=== PATIENT | female | born 1945 | race Caucasian/White ===

== ENCOUNTER 2019-02-09 20:49 | Observation (INO) | payer MEDICARE, OTHER, SELFPAY ==
[2019-02-09 20:50] VITALS: BP 203/89; PULSE 99; RESP 20; TEMP 36.7; O2SAT 95; BMI 32.1
--- NOTE | 2019-02-09 22:41 | EKG12_ITS ---
Test Reason : DIZZINESS Blood Pressure : / mmHG Vent. Rate : 068 BPM Atrial Rate : 068 BPM P-R Int : 186 ms QRS Dur : 086 ms QT Int : 416 ms P-R-T Axes : 088 -31 054 degrees QTc Int : 442 ms Normal sinus rhythm Left axis deviation Abnormal ECG Confirmed by HUNG MEYERS, GILA ([id number]), editor book EVAN PRETTY ([id number]) on 02/13/2019 2:20:53 PM Referred By: ANDREW Confirmed By:GILA PERSAUD MD
--- NOTE | 2019-02-09 22:42 | ED.VISSUMM ---
- ER Visit Summary Date of Service: 02/09/19 Chief Complaint: Lightheadedness History of Present Illness: The patient is a 73 F who presents with lightheadedness. This is been going on for about 5 days. She did fall on February 01 down steps and hit her head. She denies any loss of consciousness or headache. She initially felt fine. However 5 days ago she began to feel lightheaded. This is intermittent. She describes it as feeling drunk or off-balance. She almost fell today. She did see the nurse practitioner at her primary care physician's office and had an outpatient CT of the head at [facility] but does not yet know the results. She denies any recent illness otherwise such as fevers chest pain shortness of breath nausea vomiting headache. She denies any weakness or paresthesias. Physical Examination: Blood pressure 203/89 vitals otherwise unremarkable No distress Moist mucous membranes Heart regular rate and rhythm Lungs are clear Abdomen soft Alert and oriented with no focal or lateralizing neurological deficits no ataxia Test Results: EKG shows sinus rhythm at a rate of 68. CBC BMP troponin normal. Coagulation studies normal. CT the head shows no intracranial hemorrhage. CTAs of the head and neck showed no stenosis, no dissection. Emergency Department Course and Treatment: Patient went underwent the above work-up. Initially we attempted to obtain CT records from [facility]. However after couple of calls and left voicemails we had not heard back or received records. Therefore I did obtain a new CT the head to rule out intracranial hemorrhage. This returned unremarkable. Given patient's description of symptoms I was also concerned about potential dissection due to trauma. CTAs were obtained. These were also unremarkable. While the patient's symptoms could be related to a post concussion syndrome the onset of her symptoms was not for several days after the head injury. Therefore I do feel posterior circulation ischemia or stroke still needs ruled out. I do feel she needs hospital observation for MRI. Patient will be discussed with the hospitalist and admitted. Treatment Plan: [] Disposition: Admit Impression: Disequilibrium This note was generated with [facility] dictation software. It may contain incorrect words, spelling, and punctuation that were not noted in review of the chart prior to signing ED Disposition - Plan for ED Patient: Referrals: Pauline Alcaraz MD [Primary Care Provider] -
[2019-02-09 23:20] LABS: Absolute Lymphocyte Count 1.81 X10^3/ul (0.83-4.51); Absolute Neutrophil Count 5.2 X10^3/uL (2.0-7.7); Basophil# 0.02 X10^3/uL; Basophil% 0.3 % (0-1); Eosinophil# 0.31 X10^3/uL; Eosinophils% 3.9 % (0-5); Hematocrit 39.1 % (37-47); Hemoglobin 12.5 g/dl (12.0-15.0); Lymphocyte # 1.81 X10^3/ul (4.0); Lymphocyte % 22.7 % (19-41); Mean Corpuscular Hgb 26.7 pg (27.0-32.0); Mean Corpuscular Volume 83.5 fL (81-99); Mean Platelet Vol. 10.6 fl (6.2-12.0); Monocyte# 0.63 X10^3/uL; Monocyte% 7.9 % (0-10); Neutrophil # 5.19 X10^3/uL (2.7-7.7); Neutrophil % 65.1 % (47-70); POSITIVE COUNT NO; POSITIVE DIFFERENTIAL NO; POSITIVE MORPHOLOGY NO; Platelet Count 315 K/mm3 (150-450); RBC Distribution Width CV 14.9 % (11.6-14.6); RBC Distribution Width SD 45.2 fl (35.1-43.9); Red Blood Count 4.68 M/mm3 (4.2-5.4)
[2019-02-09 23:27] LABS: Prothrombin Time (Protime)PT. 12.6 SECONDS (11.7-14.9)
[2019-02-09 23:28] VITALS: BP 174/94; PULSE 76; RESP 12; O2SAT 97
[2019-02-09 23:28] LABS: Partial Thromboplast Time 32.1 Seconds (24.1-36.2)
[2019-02-09 23:36] LABS: Anion Gap 4 (5-15); BUN 16 mg/dL (7-18); BUN/Creat Ratio 23.5 RATIO (10-20); Calcium,Total 8.6 mg/dL (8.5-10.1); Chloride 105 mmol/L (98-107); Creatinine, Serum 0.68 mg/dL (0.55-1.02); EST Glomerular Filtration Rate 89 mL/min (>60); Est Glom Filt Rate - Afr Amer 108 mL/min (>60); Estimated Creatinine Clearance 42.62 ml/min; Glucose 96 mg/dL (74-106); Potassium 3.7 mmol/L (3.5-5.1); Sodium Level 140 mmol/L (136-145)
--- NOTE | 2019-02-09 23:45 | CT_ITS ---
STUDY: CT BRAIN WITHOUT CONTRAST REASON FOR EXAM: Female, 73 years old. Dizziness since Tuesday. Patient fell on February 01, 2019 and hit right side of the head on porch railing. RADIATION DOSAGE (If Supplied By Facility): CTDIvol = ( 44.99 ) mGy, DLP = ( 779.24 ) mGycm TECHNIQUE: Transaxial CT imaging of the brain was performed without administration of intravenous contrast material. Individualized dose optimization techniques were used for this CT. COMPARISON: CT of the head dated October 09, 2013. FINDINGS: Normal soft tissue structures. Normal calvarium. There is a small partially calcified meningioma within the left paramedian posterior parietal region measuring approximately Normal size ventricles and extra-axial spaces for the patient's age. Normal white matter tracts of the cerebral hemispheres. Normal basal ganglia and thalami. Normal brainstem. Normal cerebellum. There is no intracranial hemorrhage. There is moderate atherosclerotic calcification of the intracranial arteries. There is mucoperiosteal inflammatory disease of the paranasal sinuses consistent with mild chronic sinusitis. CT/Brain/Head without Contrast IMPRESSION: 1. No CT evidence of acute intracranial hemorrhage. 2. A small left parietal meningioma. Electronically Signed: Madison Haile MD at 0:48 EDT , Service support ,
[2019-02-10] VITALS (9 sets, daily range): BP systolic 151–190; BP diastolic 80–103; PULSE 67–91; RESP 16–19; TEMP 36.5–37; O2SAT 96–98; BMI 31.5
--- NOTE | 2019-02-10 01:02 | CT_ITS ---
STUDY: CTA HEAD AND NECK WITH CONTRAST REASON FOR EXAM: Female, 73 years old. Dizziness since Tuesday. RADIATION DOSAGE (If Supplied By Facility): CTDIvol = ( 15.19 ) mGy, DLP = ( 599.67 ) mGycm TECHNIQUE: CT angiography was performed with a multi-detector CT scanner. Data acquisition was obtained from the skull base through the vertex following intravenous administration of 100 ml of Isovue 370. MIP images were reconstructed from the axial data set. Post-processing of the angiographic images was performed, with multiplanar reformation and 3D reconstruction. Individualized dose optimization techniques were used for this CT. COMPARISON: CT of the brain dated February 09, 2019. FINDINGS: Normal bilateral petrous carotid arteries. There is calcified plaque formation of the right cavernous carotid artery, without a cross-sectional luminal stenosis. There is calcified plaque formation of the left cavernous carotid artery, without a cross-sectional luminal stenosis. Normal right A1 segments of the anterior cerebral artery. Normal left A1 segments of the anterior cerebral artery. Normal intact anterior communicating artery (ACOM). Normal bilateral A2 segments of the anterior cerebral arteries. There is irregularity of the right M1 and M2 branches with minimal luminal narrowing, suggesting atherosclerotic plaque formation, without an occlusion. There is irregularity of the left M1 and M2 branches with minimal luminal narrowing, suggesting atherosclerotic plaque formation, without an occlusion. There is a persistent origin of the right posterior cerebral artery with absence of the posterior communicating artery (PCOM). There is a persistent origin of the left posterior cerebral artery with absence of the posterior communicating artery (PCOM). Both vertebral arteries are small in size. The right vertebral artery may end in PICA. There is a small atretic basilar artery, suggesting a basilar insufficiency. The visualized bilateral superior cerebellar (SCA) arteries are normal. There is absence of bilateral P1 segments of the posterior cerebral arteries. Normal visualized bilateral P2 and P3 segments of the posterior cerebral arteries. There is no demonstrated aneurysm of the [place]. There is no demonstrated abnormality of the visualized brain. AORTIC ARCH: There is a bovine origin of the great vessels arising from the aortic arch with a common origin of the brachiocephalic and left common carotid artery. Normal origin of the left subclavian artery. RIGHT CAROTID ARTERIES: There is atherosclerotic tortuous elongation of the right common carotid artery. Normal right common carotid bulb. Normal origin of the right internal carotid (ICA) artery without a hemodynamically significant stenosis. There is atherosclerotic tortuous elongation of the cervical portion of the right internal carotid artery. Normal origin of the right external carotid artery (ECA). LEFT CAROTID ARTERIES: Normal left common carotid artery (CCA). There is mild atherosclerotic plaque formation with minimal narrowing of the left carotid bulb. Normal origin of the left internal carotid (ICA) artery without a hemodynamically significant stenosis. There is atherosclerotic tortuous elongation of the cervical portion of the left internal carotid artery. Normal origin of the left external carotid artery (ECA). VERTEBRAL ARTERIES: Normal bilateral vertebral arteries. NECK ANATOMY: There is a left-sided parotid nodule measuring 1.5 cm in greatest dimension. This was present on the previous MRI and appears unchanged. The right parotid gland has a normal appearance. Normal bilateral museum tour guide spaces. Normal bilateral parapharyngeal spaces. Normal bilateral carotid spaces. Normal bilateral sublingual and submandibular glands and spaces. Normal visualized nasopharynx. Normal retropharyngeal space. Normal perivertebral space. Normal visualized bilateral faucial tonsils. The visualized tongue, tongue base and oropharynx are normal. The visualized cervical lymph nodes (levels I-) are within normal size limits, and maintain normal morphology. There is no demonstrated solid or cystic mass lesion. There is no abnormal contrast enhancement. Normal epiglottis, bilateral vallecula and hypopharynx. The pre-epiglottic and paraglottic adipose spaces are normal. Normal visualized bilateral piriform sinuses, aryepiglottic folds, vocal cords, and arytenoid-cricoid articulations. Normal subglottic trachea. The thyroid is not visualized. Normal visualized pulmonary apices. There is a mucoperiosteal thickening in the right maxillary sinus in addition a mucous retention cyst. There is patchy mucoperiosteal thickening within the ethmoid sinuses. There is multilevel degenerative changes of the cervical spine. Patient is edentulous. CT/CTA Head AND Neck W/ Contrast IMPRESSION: 1. No CT evidence for hemodynamically significant stenosis, acute thrombosis, dissection or aneurysm. 2. Technically limited study due to patient motion. 3. Unchanged appearance of left parotid nodule. Electronically Signed: Madison Haile MD at 3:15 EDT , Service support ,
--- NOTE | 2019-02-10 04:30 | PCM.HP.STD ---
Problem List (1) Ataxia Status: Acute (2) Hypertension Status: Chronic Qualifiers: Hypertension type: essential hypertension Qualified Code(s): I10 - Essential (primary) hypertension (3) Hypothyroidism Status: Acute Qualifiers: Hypothyroidism type: unspecified Qualified Code(s): E03.9 - Hypothyroidism, unspecified History of Present Illness Date of Admission: 02/10/19 Chief Complaint: Dysequilibrium - 5 days The patient is a 73 year old F with past medical history of hypertension, hypothyroidism who fell down on 01 February. She was coming down a staircase and had a few steps to get to the landing when she missed her step and fell down and hit her head against the railing. She did not lose consciousness. Shee denied feeling unwell prior to the fall or dizziness or palpitations. She was with her family at a boat house. It was unwitnessed. She managed to get up and climbed up stairs back to the family. The family helped her put ice to the head. She felt well and went ahead with 01 February festivities. A couple of days later she started to feel lightheaded and off-balance. This was intermittent. She went to see her nurse practitioner at the primary care doctor's office and had an outpatient CT scan of the head done in [place]. Results of this CT is unknown. She went out this evening with friends and started feeling very dizzy. She almost fell. This persisted and she decided to come to the emergency department. In the emergency department, her temperature was 98.1F, heart rate of 99, blood pressure 203/89, respiratory rate was 20, SPO2 is 95% on room air. Admitting CBC D was unremarkable. BMP was also unremarkable. Troponins were negative. EKG shows normal sinus rhythm, no acute ST-T changes. Past Medical History Past Medical History (Chronic Problems): Chronic Problems Hypertension (Chronic) Allergies codeine Adverse Reaction (Verified 02/09/19 20:50) Nausea Home Medications: Ambulatory Orders Medication Instructions Recorded Ergocalciferol (Vitamin D2) 2,000 unit PO DAILY 10/09/13 [Vitamin D2] Estrogens, Conjugated [Premarin] 1 dose VAGINAL DAILY 10/09/13 Levothyroxine Sodium [Levoxyl] 137 mcg PO QHS 10/09/13 [place]-3 Fatty Acids [Fish Oil] 400 mg PO DAILY 10/09/13 Triamterene/Hydrochlorothiazid 1 each PO DAILY 10/09/13 [Triamterene-Hctz 50-25 mg Cap] Ubidecarenone [Coq10] 50 mg PO DAILY 03/23/17 Surgical History: cholecystectomy, hysterectomy, total knee arthroplasty - Left, - - Status post tubal ligation, thyroidectomy, excision biopsy for vulvar CA Psychiatric History: No pertinent psych hx ON 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 SERVICES SPECIALIST History: No pertinent ON SITE SERVICES SPECIALIST history Lives: Spouse/ Significant Other Smoking Status: Never smoker Tobacco Use: Non-smoker Alcohol: Occasional Drugs: None - *Family History Maternal History Items: Diabetes, Heart Disease - MRI Paternal History Items: COPD Review of Systems Constitutional: Denies: Anorexia, Chills, Fever, Malaise, Weakness, Weight Change Eyes: Denies: Blurred vision, Cataracts, Conjunctivae Inflammation HEENT: Denies: Head Aches, Hearing Changes, Sinus Congestion, Sinus Drainage Cardiovascular: Denies: Chest Pain, Orthopnea, Palpitations Respiratory: Denies: Cough, Hemoptysis, Shortness of breath at rest, Shortness of breath upon exertion, Sputum production Gastrointestinal: Denies: Abdominal Pain, Hematemesis, Hematochezia, Nausea, Vomiting Genitourinary: Denies: Dysuria, Frequency, Hesitancy, Incontinence Musculoskeletal: Denies: Joint Pain, Joint stiffness, Joint swelling, Joint Tenderness Skin: Denies: Rash, Wounds Neurological: Denies: Difficulty swallowing, Focal weakness, Numbness, Tingling Psychiatric: Denies: Anxiety, Depression, Homicidal Ideations, Suicidal Ideations Endocrine: Denies: Polyuria Hematologic/ Lymphatic: Denies: Easy Bruising, Easy Bleeding VTE Information - Inpt Only VTE Present on Admission: No VTE Pharm Prophylaxis ordered?: Yes Patient Problems: Active and Suspected Problems Ataxia (Acute) Hypothyroidism (Acute) - Physical Exam General: Alert, Oriented x3, Cooperative, No apparent distress HEENT: Atraumatic, PERRLA, EOMI, Normocephalic, - - Tenderness over the right parietal region with soft tissue bump from fall Oral: Moist Mucosa Neck: Supple, No JVD, Negative Carotid Bruits Lungs: Clear to auscultation, Normal air movement Cardiovascular: Regular rate, Regular Rhythm, Normal S1, Normal S2, No murmurs Abdomen: Bowel Sounds Present, Soft, Non Tender, Non-Distended, No Hepato-splenomegaly Extremities: No edema Skin: No rashes Musculoskeletal: No Tenderness to Palpation of Joints or Extremities Lymphatic: No Cervical, Supraclavicular, or Inguinal Adenopathy Neurological: Cranial nerves II-XII grossly intact, Neuro grossly intact, Coordination normal Psych/Mental Status: Normal Affect, Appropriate Vital Signs Temp Pulse Resp BP Pulse Ox 98.1 F 85 17 188/87 H 97 02/09/19 20:50 02/10/19 03:00 02/10/19 03:00 02/10/19 03:00 02/10/19 03:00 Oxygen Delivery Method Room Air Weight: 84.9 kg Body Mass Index (BMI) 32.1 Laboratory Tests Past 24 Hrs 02/09/19 02/09/19 02/09/19 23:00 23:00 23:00 WBC 8.0 RBC 4.68 Hgb 12.5 Hct 39.1 MCV 83.5 MCH 26.7 L MCHC 32.0 RDW 14.9 H RDW Differential 45.2 H Plt Count 315 MPV 10.6 Immature Gran % (Auto) 0.100 Neut % (Auto) 65.1 Lymph % (Auto) 22.7 [place] % (Auto) 7.9 Eos % (Auto) 3.9 Baso % (Auto) 0.3 Absolute Neuts (auto) 5.2 Absolute Lymphs (auto) 1.81 Total Counted Not Reportable PT 12.6 INR 1.0 APTT 32.1 Sodium 140 Potassium 3.7 Chloride 105 Carbon Dioxide 31.0 Anion Gap 4 L BUN 16 Creatinine 0.68 Estim Creat Clear Calc 42.62 Est GFR (MDRD) Af Amer 108 Est GFR (MDRD) Non-Af 89 BUN/Creatinine Ratio 23.5 H Glucose 96 Calcium 8.6 Troponin I < 0.015 Assessment/Plan All Active Problems Ataxia (Acute) Hypothyroidism (Acute) a 73 year old F with past medical history of hypertension, hypothyroidism who fell down the staircase on 01 of February and comes in with intermittent feeling of off-balance. 1. Ataxia, unclear etiology, history of a fall, CT of the head shows no acute intracranial hemorrhage, CTA of the head and neck is negative Plan: Admit to PCU, monitor on telemetry, MRI of the brain to look at the posterior circulation, PT/OT to evaluate and treat 2. Accelerated hypertension, known history of hypertension, continue home triamterene/hydrochlorothiazide, hydralazine as needed 3. Hypothyroidism, continue on levothyroxine 4. DVT PPx- Heparin SC Code Visit Inpatient E&M: 43038 Init Hosp L3
--- NOTE | 2019-02-10 05:45 | MRI_ITS ---
STUDY: MRI BRAIN WITHOUT CONTRAST REASON FOR EXAM: Female, 73 years old. Pt fell 02/01/19 and hit RIGHT parietal/frontal area. Dizziness began 02/05/19 and has continued. TECHNIQUE: Standardized multiplanar fat and water weighted pulse sequences were obtained. COMPARISON: January 12, 2016 FINDINGS: Normal size of the ventricles and extra-axial spaces for the patient's age. There are multiple white matter hyperintensities, distributed throughout the deep white matter tracts of the cerebral hemispheres, consistent with moderate chronic white matter ischemic changes. There is approximately 1.2 cm extra-axial lesion along the left parietal convexity with dural tail (sagittal image #8 series 3). This measured approximately 6 mm previously in 2016. Normal bilateral basal ganglia. Normal thalami. There is no extra-axial fluid accumulation. Normal flow voids within the major intracranial circulation suggesting patency by spin echo criteria. Normal sella turcica, pituitary gland, infundibular stalk, optic chiasm and hypothalamus. Normal tectal plate and pineal gland. Normal midbrain, iona and medulla. Normal cerebellum. Normal basal cisterns. Again noted is a stable 1.5 cm left parotid lesion. MRI/Brain without Contrast IMPRESSION: No acute intracranial abnormality. Increased 1.2 cm left parietal likely meningioma. Follow-up in 12 months is recommended. Electronically Signed: Luz Stovall MD at 10:47 EDT Tel , Service support ,
[2019-02-10] MEDS: 0.9% Normal Saline 1,000 ML 75 ML IV (06:19)
[2019-02-10] MEDS: Heparin Injection (Vial) 5,000 UNIT/ML VIAL 5000 UNIT SC (06:25)
[2019-02-10 08:03] LABS: Absolute Lymphocyte Count 1.55 X10^3/ul (0.83-4.51); Absolute Neutrophil Count 4.2 X10^3/uL (2.0-7.7); Basophil# 0.01 X10^3/uL; Basophil% 0.2 % (0-1); Eosinophil# 0.27 X10^3/uL; Eosinophils% 4.1 % (0-5); Hemoglobin 12.7 g/dl (12.0-15.0); Lymphocyte # 1.55 X10^3/ul (4.0); Lymphocyte % 23.4 % (19-41); Mean Corp Hgb Conc 31.8 g/gl (32-36); Mean Corpuscular Hgb 26.3 pg (27.0-32.0); Mean Corpuscular Volume 82.8 fL (81-99); Mean Platelet Vol. 10.7 fl (6.2-12.0); Monocyte# 0.62 X10^3/uL; Monocyte% 9.4 % (0-10); Neutrophil # 4.15 X10^3/uL (2.7-7.7); Neutrophil % 62.7 % (47-70); Platelet Count 307 K/mm3 (150-450); RBC Distribution Width CV 15.1 % (11.6-14.6); Red Blood Count 4.83 M/mm3 (4.2-5.4); White Blood Count 6.6 K/mm3 (4.4-11.0)
[2019-02-10 08:04] LABS: POSITIVE COUNT NO; POSITIVE DIFFERENTIAL NO; POSITIVE MORPHOLOGY NO
[2019-02-10 08:23] LABS: ALB/GLOB Ratio 0.9 RATIO (0.9-2.4); AST(SGOT) 17 U/L (15-37); Alanine Aminotransfer ALT/SGPT 29 U/L (13-56); Albumin, Serum 3.3 g/dL (3.2-5.0); Alkaline Phosphatase 96 U/L (45-117); Anion Gap 5 (5-15); BUN 13 mg/dL (7-18); BUN/Creat Ratio 20.7 RATIO (10-20); Calcium,Total 8.9 mg/dL (8.5-10.1); Chloride 106 mmol/L (98-107); Creatinine, Serum 0.63 mg/dL (0.55-1.02); EST Glomerular Filtration Rate 98 mL/min (>60); Est Glom Filt Rate - Afr Amer 119 mL/min (>60); Estimated Creatinine Clearance 42.62 ml/min; Globulin 3.6 g/dL (2.2-4.2); Glucose 94 mg/dL (74-106); Potassium 3.5 mmol/L (3.5-5.1); Protein, Total 6.9 g/dL (6.4-8.2); Sodium Level 143 mmol/L (136-145)
[2019-02-10] MEDS: Omega-3 Acid Ethyl Esters 1 GM Capsule PO (09:06)
[2019-02-10] MEDS: Triamterene 37.5MG/Hctz 25MG Capsule 1 CAP PO (09:06)
--- NOTE | 2019-02-10 11:38 | DCINST_ITS ---
- Discharge Diagnoses Current Active Problems: Current Active and Chronic Problems Ataxia (Acute) Hypertension (Chronic) Hypothyroidism (Acute) You will use the following diet at home:: Cardiac - 2500 mg sodium daily Your food should be the consistency of: Regular Your liquids should be the consistency of: Regular/Thin Discharge Activity: Return to Normal Activity Allergies/Adverse Reactions: Allergies codeine Adverse Reaction (Verified 02/09/19 20:50) Nausea Medications to take at Discharge Ergocalciferol (Vitamin D2) [Vitamin D2] 2,000 unit PO DAILY 10/09/13 Estrogens, Conjugated [Premarin] 1 dose VAGINAL DAILY 10/09/13 Levothyroxine Sodium [Levoxyl] 137 mcg PO QHS 10/09/13 [place]-3 Fatty Acids [Fish Oil] 400 mg PO DAILY 10/09/13 Triamterene/Hydrochlorothiazid [Triamterene-Hctz 50-25 mg Cap] 1 each PO DAILY 10/09/13 Ubidecarenone [Coq10] 50 mg PO DAILY 03/23/17 Meclizine HCl [Antivert] 12.5 mg PO TID PRN PRN #21 tab 02/10/19 The following prescriptions were given: Meclizine HCl [Antivert] 12.5 mg PO TID PRN PRN #21 tab PRN Reason: Vertigo Prescription Printed Primary Care Physician: Pauline Alcaraz MD [Primary Care Provider] - Please follow up with your Primary Care Physician in: 1-2 weeks Test Results: Test results from this visit will be discussed in further detail at your follow- up appointment, if applicable. Please Follow Up With: Lillian Fernandez MD When: 3-4 weeks Proposed Discharge Date: 02/10/19
--- NOTE | 2019-02-10 13:00 | PCM.DC.SUM ---
<Ramiro Castellano - Last Filed: 02/10/19 13:00> Discharge Date and Diagnosis Date of Admission: 02/10/19 Date of Discharge: 02/10/19 - Primary Discharge Diagnosis Active and Suspected Problems Dizzines 2/2 BPPV HTN urgency Hypothyroidism - Secondary Discharge Diagnosis Chronic Problems Hypertension (Chronic) Hospital Course and Treatment Imaging Results: CT/Brain/Head without Contrast IMPRESSION: 1. No CT evidence of acute intracranial hemorrhage. 2. A small left parietal meningioma. CT/CTA Head AND Neck W/ Contrast IMPRESSION: 1. No CT evidence for hemodynamically significant stenosis, acute thrombosis, dissection or aneurysm. 2. Technically limited study due to patient motion. 3. Unchanged appearance of left parotid nodule. MRI/Brain without Contrast IMPRESSION: No acute intracranial abnormality. Increased 1.2 cm left parietal likely meningioma. Follow-up in 12 months is recommended. Operations: None Procedures: None Summary of Care Provided: Hospital course: The patient is a 73 year old F with past medical history of BPPV, hypertension, hypothyroidism, who presented to the emergency room with complaints of dizziness. The patient notably had a fall on February 01. She was walking down a flight of stairs and missed the last step falling to the ground and hitting her head. At that time she did not have dizziness or lightheadedness. 2 days later she started feeling lightheaded and dizzy, off balance while walking. CT brain was done by PCP which was negative. The patient noted that the first 6 time she experienced this it was when she sat up and got out of bed first thing in the morning, and felt it occur with position changes. She had worsening of her dizziness and came to the emergency room. Her blood pressure was elevated at 203/89, CT of the brain was negative. She was admitted for stroke work-up. A CTA of the head and neck was unremarkable. An MRI of the brain was obtained which was negative for stroke. There was an incidental meningioma noted that will need follow-up imaging in 12 months. The patient had no further symptoms the rest of the day while here. She had a history of BPPV for which she was treated with Parth maneuvers in the past. Her orthostatic vitals were negative. As her symptoms were positional this felt that she likely had BPPV, possibly triggered by the initial fall, meclizine was prescribed as needed, and I advised her to continue Parth maneuvers as needed at home. As for her blood pressure, administration of her normal home medication improved her blood pressure significantly. It does remain elevated, I have advised her to check her blood pressures every day, record them, and present the findings to her PCP at which point adjustments to her home medication regimen can be made. She was discharged home in stable condition. She will need to follow-up with her PCP in 1 to 2 weeks. She may also follow-up with neurology in 3 to 4 weeks. This patient was seen by Ramiro Castellano PA-C under the supervision of Doctor Ann Marie. [] - Physical Exam General: Alert, Oriented x3, Cooperative HEENT: Atraumatic, PERRLA, EOMI, Normocephalic Neck: Supple, No JVD, Negative Carotid Bruits Lungs: Clear to auscultation, Normal air movement Cardiovascular: Regular rate, No murmurs Abdomen: Bowel Sounds Present, Soft, Non Tender Extremities: No edema, Capillary Refill Less than 3 Seconds Skin: No rashes, No breakdown Musculoskeletal: No Tenderness to Palpation of Joints or Extremities Neurological: Cranial nerves II-XII grossly intact Psych/Mental Status: Normal Affect, Appropriate, Alert and oriented to time, place, person, mood and affect Vital Signs Temp Pulse Resp BP Pulse Ox 98.1 F 72 16 151/85 H 97 02/10/19 11:15 02/10/19 12:01 02/10/19 11:15 02/10/19 12:01 02/10/19 11:15 Oxygen Delivery Method Room Air Weight: 184 lb 8.43 oz Body Mass Index (BMI) 31.5 Orthostatic Vital Signs Start: 02/10/19 12:01 Freq: q24h Status: Active Protocol: Activity Type Activity Date Activity User E-Sign Co-Sign Detail Recorded Client Recorded Date Recorded By Document 02/10/19 12:01 HALEIGH [id number] 02/10/19 12:06 HALEIGH 02/10/19 12:01 Orthostatic Vitals Standing -Blood Pressure (90/60-120/80 mm Hg) 165/85 H -Extremity Use Right Arm -Pulse Rate (60-100 beats/min) 77 Sitting -Blood Pressure (90/60-120/80 mm Hg) 162/91 H -Extremity Use Right Arm -Pulse Rate (60-100 beats/min) 91 Lying -Blood Pressure (90/60-120/80 mm Hg) 151/85 H -Extremity Use Right Arm -Pulse Rate (60-100 beats/min) 72 Intake and Output for Last 24 Hours 02/08/19 02/09/19 02/10/19 23:59 23:59 23:59 Intake Total 400 / 400 Balance 400 / 400 Laboratory Tests Past 24 Hrs 02/09/19 02/09/19 02/09/19 23:00 23:00 23:00 WBC 8.0 RBC 4.68 Hgb 12.5 Hct 39.1 MCV 83.5 MCH 26.7 L MCHC 32.0 RDW 14.9 H RDW Differential 45.2 H Plt Count 315 MPV 10.6 Immature Gran % (Auto) 0.100 Neut % (Auto) 65.1 Lymph % (Auto) 22.7 Armstrong % (Auto) 7.9 Eos % (Auto) 3.9 Baso % (Auto) 0.3 Absolute Neuts (auto) 5.2 Absolute Lymphs (auto) 1.81 Total Counted Not Reportable PT 12.6 INR 1.0 APTT 32.1 Sodium 140 Potassium 3.7 Chloride 105 Carbon Dioxide 31.0 Anion Gap 4 L BUN 16 Creatinine 0.68 Estim Creat Clear Calc 42.62 Est GFR (MDRD) Af Amer 108 Est GFR (MDRD) Non-Af 89 BUN/Creatinine Ratio 23.5 H Glucose 96 Calcium 8.6 Total Bilirubin AST ALT Alkaline Phosphatase Troponin I < 0.015 Total Protein Albumin Globulin Albumin/Globulin Ratio 02/10/19 02/10/19 07:18 07:18 WBC 6.6 RBC 4.83 Hgb 12.7 Hct 40.0 MCV 82.8 MCH 26.3 L MCHC 31.8 L RDW 15.1 H RDW Differential 45.0 H Plt Count 307 MPV 10.7 Immature Gran % (Auto) 0.200 Neut % (Auto) 62.7 Lymph % (Auto) 23.4 Armstrong % (Auto) 9.4 Eos % (Auto) 4.1 Baso % (Auto) 0.2 Absolute Neuts (auto) 4.2 Absolute Lymphs (auto) 1.55 Total Counted Not Reportable PT INR APTT Sodium 143 Potassium 3.5 Chloride 106 Carbon Dioxide 32.0 Anion Gap 5 BUN 13 Creatinine 0.63 Estim Creat Clear Calc 42.62 Est GFR (MDRD) Af Amer 119 Est GFR (MDRD) Non-Af 98 BUN/Creatinine Ratio 20.7 H Glucose 94 Calcium 8.9 Total Bilirubin 0.40 AST 17 ALT 29 Alkaline Phosphatase 96 Troponin I Total Protein 6.9 Albumin 3.3 Globulin 3.6 Albumin/Globulin Ratio 0.9 Discharge Diet: Low fat/ Low Cholesterol, 2000 mg Sodium Diet Discharge Activity: Return to Normal Activity Home Medications: Medications to take at Discharge Ergocalciferol (Vitamin D2) [Vitamin D2] 2,000 unit PO DAILY 10/09/13 Estrogens, Conjugated [Premarin] 1 dose VAGINAL DAILY 10/09/13 Levothyroxine Sodium [Levoxyl] 137 mcg PO QHS 10/09/13 [place]-3 Fatty Acids [Fish Oil] 400 mg PO DAILY 10/09/13 Triamterene/Hydrochlorothiazid [Triamterene-Hctz 50-25 mg Cap] 1 each PO DAILY 10/09/13 Ubidecarenone [Coq10] 50 mg PO DAILY 03/23/17 Meclizine HCl [Antivert] 12.5 mg PO TID PRN PRN #21 tab 02/10/19 Following Prescrptions Were Given to Patient: Meclizine HCl [Antivert] 12.5 mg PO TID PRN PRN #21 tab PRN Reason: Vertigo Prescription Printed Primary Care Physician: Pauline Alcaraz MD [Primary Care Provider] - Please follow up with your Primary Care Physician in: 1-2 weeks Please Follow Up With: Lillian Fernandez MD When: 3-4 weeks Disposition: Home Minutes spent on discharge:: 35 Patient Condition:: Stable Medical Necessity - Tobacco Use Smoking Status: Former smoker Tobacco Use: Non-smoker Meaningful Use Info Meaningful Use Diagnoses (Choose all that apply): None applicable <Misty Jesus - Last Filed: 02/10/19 14:42> Discharge Date and Diagnosis - Secondary Discharge Diagnosis Chronic Problems Hypertension (Chronic) Hospital Course and Treatment Imaging Results: 02/10/19 05:45 MRI Brain [Brain without Contrast] [MRI] Routine Summary of Care Provided: Patient seen by Ramiro Castellano PA-C under my supervision The patient is a 73 year old F with a past medical history as above. She was admitted with complaint of dizziness. Patient states she was out with friends started feeling lightheaded and dizzy. Patient also had a fall on January/was working on a flight of stairs and missed the last step and hit her head. CT done on outpatient basis was negative. Dizziness recurred again so she came back to the ED. Blood pressure was elevated in the ED at [address] of the brain was negative. She stated that the dizziness was worse with positional changes. CT of the head and neck was unremarkable and an MRI done was negative for stroke but showed an incidental meningioma which had increased from 6 mm in 2016 to 1.2 cm in 2019. She remained stable and was discharged home on 02/10/2019. She has follow-up with her primary care doctor within 1 week. She is also to follow-up with neurology for closer monitoring of meningioma. Patient seen and examined prior to discharge patient felt well and had no complaints. Review of systems otherwise negative. Labs and vitals reviewed. Home Medication reviewed and reconciled. o/e: Vital Signs Height 5 ft 4.17 in Weight: 184 lb 8.43 oz Weight in Pounds 184.5 lbs Pulse Ox 96 Temperature 98.6 F Pulse Rate [Standing] 77 Pulse Rate [Sitting] 91 Pulse Rate [Lying] 72 Pulse Rate 75 Respiratory Rate 16 Blood Pressure [Standing] 165/85 Blood Pressure [Sitting] 162/91 Blood Pressure [Lying] 151/85 Blood Pressure [BP] 190/103 Blood Pressure 151/84 Blood Pressure Position [BP] Semi-Fowlers Blood Pressure Position Sitting [] General: Alert, Oriented x3, Cooperative, No apparent distress HEENT: Atraumatic, PERRLA, EOMI, Normocephalic Oral: Moist Mucosa Neck: Supple, No JVD, Negative Carotid Bruits Lungs: Clear to auscultation, Normal air movement Cardiovascular: Regular rate, Regular Rhythm, Normal S1, Normal S2, No murmurs Abdomen: Bowel Sounds Present, Soft, Non Tender, Non-Distended, No Hepato-splenomegaly Extremities: No edema Skin: No rashes Musculoskeletal: No Tenderness to Palpation of Joints or Extremities Lymphatic: No Cervical, Supraclavicular, or Inguinal Adenopathy Neurological: Cranial nerves II-XII grossly intact, Neuro grossly intact, Coordination normal Psych/Mental Status: Normal Affect, Appropriate Plan as above. I have reviewed Ramiro Castellano PA-C's note and endorse it. - Physical Exam Vital Signs Temp Pulse Resp BP Pulse Ox 98.6 F 75 16 151/84 H 96 02/10/19 14:00 02/10/19 14:00 02/10/19 14:00 02/10/19 14:00 02/10/19 14:00 Oxygen Delivery Method Room Air Weight: 184 lb 8.43 oz Body Mass Index (BMI) 31.5 Intake and Output for Last 24 Hours 02/08/19 02/09/19 02/10/19 23:59 23:59 23:59 Intake Total 400 / 400 Balance 400 / 400 Laboratory Tests Past 24 Hrs 02/09/19 02/09/19 02/09/19 23:00 23:00 23:00 WBC 8.0 RBC 4.68 Hgb 12.5 Hct 39.1 MCV 83.5 MCH 26.7 L MCHC 32.0 RDW 14.9 H RDW Differential 45.2 H Plt Count 315 MPV 10.6 Immature Gran % (Auto) 0.100 Neut % (Auto) 65.1 Lymph % (Auto) 22.7 Armstrong % (Auto) 7.9 Eos % (Auto) 3.9 Baso % (Auto) 0.3 Absolute Neuts (auto) 5.2 Absolute Lymphs (auto) 1.81 Total Counted Not Reportable PT 12.6 INR 1.0 APTT 32.1 Sodium 140 Potassium 3.7 Chloride 105 Carbon Dioxide 31.0 Anion Gap 4 L BUN 16 Creatinine 0.68 Estim Creat Clear Calc 42.62 Est GFR (MDRD) Af Amer 108 Est GFR (MDRD) Non-Af 89 BUN/Creatinine Ratio 23.5 H Glucose 96 Calcium 8.6 Total Bilirubin AST ALT Alkaline Phosphatase Troponin I < 0.015 Total Protein Albumin Globulin Albumin/Globulin Ratio 02/10/19 02/10/19 07:18 07:18 WBC 6.6 RBC 4.83 Hgb 12.7 Hct 40.0 MCV 82.8 MCH 26.3 L MCHC 31.8 L RDW 15.1 H RDW Differential 45.0 H Plt Count 307 MPV 10.7 Immature Gran % (Auto) 0.200 Neut % (Auto) 62.7 Lymph % (Auto) 23.4 Armstrong % (Auto) 9.4 Eos % (Auto) 4.1 Baso % (Auto) 0.2 Absolute Neuts (auto) 4.2 Absolute Lymphs (auto) 1.55 Total Counted Not Reportable PT INR APTT Sodium 143 Potassium 3.5 Chloride 106 Carbon Dioxide 32.0 Anion Gap 5 BUN 13 Creatinine 0.63 Estim Creat Clear Calc 42.62 Est GFR (MDRD) Af Amer 119 Est GFR (MDRD) Non-Af 98 BUN/Creatinine Ratio 20.7 H Glucose 94 Calcium 8.9 Total Bilirubin 0.40 AST 17 ALT 29 Alkaline Phosphatase 96 Troponin I Total Protein 6.9 Albumin 3.3 Globulin 3.6 Albumin/Globulin Ratio 0.9 Code Visit OBSV E&M: [id number] Observation care discharge
== END 2019-02-10 11:38 | disposition home or self-care (01) ==
LOC: ED 22:30 → PCU 02-10 04:46
PROVIDERS: Admitting Provider Internal Medicine; Emergency Provider Emergency Medicine; Family Provider Internal Medicine; PCP Internal Medicine; Visit Provider Student in an Organized Health Care Education/Training Program
DX: H81.10 Benign paroxysmal vertigo, unspecified ear (principal); E03.9 Hypothyroidism, unspecified; I16.0 Hypertensive urgency; I10 Essential (primary) hypertension; Z91.81 History of falling; Z79.899 Other long term (current) drug therapy; Z87.891 Personal history of nicotine dependence; D32.9 Benign neoplasm of meninges, unspecified
CPT/HCPCS: 36415; 70450; 70496; 70498; 70551; 80048; 80053; 84484; 85025; 85610; 85730; 93005; 96360; 96361; 96372; 97161; 97166; 99218; 99285; J7030; Q9967; A4216; G0378

== ENCOUNTER 2019-07-10 13:21 | Emergency (ER) | payer MEDICARE, OTHER, SELFPAY ==
[2019-02-10 05:51] VITALS: BMI 31.5
[2019-07-10 13:21] VITALS: BP 160/97; PULSE 85; RESP 16; O2SAT 95
[2019-07-10 13:22] VITALS: BP 207/148; PULSE 90; RESP 15; TEMP 37; O2SAT 99; BMI 32.0
--- NOTE | 2019-07-10 13:51 | ED.VISSUMM ---
- ER Visit Summary Date of Service: 07/10/19 Chief Complaint: Acute on chronic hypertension History of Present Illness: The patient is a 74 F history of hypertension. Patient is on hydrochlorothiazide and recently was started on lisinopril 2.5 mg once a day. States her blood pressures been running high at home. She denies really having headaches or chest pain. Came in today because her blood pressure was 207/148. Physical Examination: Older female accompanied by her vital signs are stable afebrile. Her initial blood pressure was 207/148 however when I am in the room was 160/97. She is resting comfortably no distress without complaints. H EENT exam unremarkable. Neck nontender. Lungs clear to auscultation bilaterally. Heart regular rate and rhythm no murmur. Abdomen soft nontender normal bowel sounds no peritoneal signs. Patient moving all 4 extremities. Neurovascular intact. Nontender without edema. Neurologically she is awake and alert with no focal motor deficits. NIH score is 0. Test Results: None Emergency Department Course and Treatment: Patient has acute on chronic hypertension. She they have recently added a second medication lisinopril 2.5 mg once a day. I explained to the patient she just needs her meds adjusted. She will log her blood pressures twice daily. Follow-up with her primary care physician and see if they need to adjust her medications. She may only need one med with the right dose or they might need to increase the dose of the lisinopril. Treatment Plan: Log blood pressures daily. Follow-up with her doctor to have her blood pressure meds adjusted. Disposition: Discharge Impression: Acute on chronic hypertension poorly controlled This note was generated with [employer] dictation software. It may contain incorrect words, spelling, and punctuation that were not noted in review of the chart prior to signing ED Disposition - Plan for ED Patient: Referrals: Pauline Alcaraz MD [Primary Care Provider] -
--- NOTE | 2019-07-10 13:53 | ED.DEP ---
ED Disposition - Plan for ED Patient: Disposition: Home or Assisted Living Instructions: HYPERTENSION, Established, Out of Control Referrals: Pauline Alcaraz MD [Primary Care Provider] - 1-2 Weeks Additional Instructions: Log your blood pressures twice daily. Follow-up with Dr. Alcaraz in 1 to 2 weeks to ensure your blood pressure readings over a week or more and she can adjust her blood blood pressure medications as needed. They may need to increase her lisinopril which is only 2.5 mg to a higher dose. If your blood pressures are running significantly high like 200 over all 100 you may want to take a second lisinopril during the day.
[2019-07-10 13:57] VITALS: BP 160/87; PULSE 71; RESP 16; O2SAT 97
== END 2019-07-10 13:58 | disposition home or self-care (01) ==
PROVIDERS: Emergency Provider Emergency Medicine; Family Provider Internal Medicine; PCP Internal Medicine
DX: I10 Essential (primary) hypertension (principal); Z79.899 Other long term (current) drug therapy
CPT/HCPCS: 99282

== ENCOUNTER → 2019-09-11 | Outpatient (CLI) | payer MEDICARE, OTHER, SELFPAY | END | disposition home or self-care (01) | LOC: PSN 09:07 | PROVIDERS: PCP Internal Medicine; Referring Provider Nurse Practitioner; Visit Provider Nurse Practitioner | DX: R00.2 Palpitations (principal) | CPT/HCPCS: 93225; 93226 ==

== ENCOUNTER → 2019-12-13 | Outpatient (CLI) | payer MEDICARE, OTHER, SELFPAY ==
[2019-10-26 13:15] VITALS: BMI 32.0
[2019-12-13 16:31] LABS: Free T3 2.7 pg/mL (2.18-3.98); Thyroid Stim Hormone (TSH) 0.08 uIU/mL (0.358-3.74)
[2019-12-17 20:38] LABS: Anti-Thyroglobulin AB < 1.0 IU/mL (0.0-0.9); Thyroglobulin, Serum Qt. 1.7 ng/mL (1.5-38.5)
--- OUTSIDE RECORDS SUMMARY | 2020-05-13 10:46 | XMS RPT_ITS | CCD ---
:1945 External Reference #:[id number] Author Organization [facility] Care Team Providers Name Role Phone Bryce WRIGHT Attending Unavailable [facility] Primary Care Unavailable Bryce WRIGHT Attending Unavailable [facility] Primary Care Unavailable Bryce WRIGHT Admitting Unavailable Sedrick SUTTON Consulting Unavailable Bryce WRIGHT Attending Unavailable [facility] Primary Care Unavailable Mandy Alcaraz Primary Care Provider Allergies Reported Allergen Reaction(s) Severity Date of Onset Location Codeine GI Upset 04-30-2005 - [facility] ([id number]) Sulfonamides (Antibiotic) Rash 11-04-2004 - [facility] ([id number]) Medications Medication Name Sig Date Prescriber Location Fish Oils FISH OIL CAP Take 10-07-2006 Carrillo Vizcaino [facility] one(1) capsule A Dave ([id number]) daily. 0 10/07/2006 Active Comment: Take one(1) capsule daily. 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 Midline cystocele Active 03-03-2009 [facility] genital organs (89819) Past or Other Problems Category Problem Name Status Date Location Anal and rectal Disorder of rectum Completed 03-03-2009 - [facility] conditions ([id number]) Cardiac dysrhythmias Palpitations Completed 10-21-2019 - [facility] (30019) Neoplasms of Neoplasm of meninges Completed 03-02-2019 - [facility] unspecified nature or (70158 ) uncertain behavior Other lower respiratory Multiple nodules of Completed 12-18-2012 - [facility] disease lung (51460) Other screening for Abnormal quantity of Completed 12-20-2018 - [facility] suspected conditions physiologic substance (90570) (not mental disorders or infectious disease) Spondylosis; Chronic low back pain Completed 10-21-2019 - [facility] intervertebral disc (82854) disorders; other back problems Results Result Name Value Range Unit Interpretation Flag Date Location obsolete on 2020-03 OBSOLETE Refill (INTMWS) Normal 03-10-2020 [facility] [place] ([id number]) 1945 [facility] Time Provider Department ([id number]) 03/10/20 GUILLERMO URBINA (MULTIMEDIA DESIGNER) INTMWS During your visit today, we recorded the following informati on about you: Allergies As of Date: 03/10/2020 Noted Allergy Reaction CODEINE 04/30/2005 8 - GI Upset SULFA (SULFONAMIDE ANTIBIOTICS) 11/04/2004 2 - Rash Comments: UNSURE OF REACTION Date Reviewed: 09/18/2019 Reviewed by: Hailey Brink LPN - Fully Assessed Reason for Visit: Refill Request [94] Visit Diagnosis:Essential hypertension with goal blood press ure less than 140/90 [I10] Order(s):triamterene-hydrochlorothiazide (MAXZIDE-25) 37.5-2 5 mg per tabletTake 1 tablet by mouth once daily.Disp: 90 tabletRfl: 3 Prescriptions as of 03/10/2020 Sig: TRIAMTERENE 37.5 MG-HYDROCHLO* Take 1 tablet by mouth once d * LEVOTHYROXINE 137 MCG TABLET 1.5 pills on Sundays, 1 pill * LISINOPRIL 5 MG TABLET Take 1 tablet by mouth once d* CONJUGATED ESTROGENS 0.625 MG* Use small amount at vaginal o * MULTIVITAMIN CAPSULE Take 1 capsule by mouth once * MAGNESIUM 200 MG ( MAGNESIU* Take 1 tablet by mouth once d * ASPIRIN 81 MG CHEWABLE TABLET Take 81 mg by mouth as needed* CHOLECALCIFEROL (VITAMIN D3) * Take 2,000 Units by mouth onc * COENZYME Q10 100 MG CAPSULE Take 100 mg by mouth once zuleika* FISH OIL 500 MG CAPSULE Take one(1) capsule daily. Problem List As Of Date 03/10/2020 Noted Resolved FEMALE STRESS INCONTINENCE [N39.3] 11/04/2004 03/03/2009 UTERVAGINAL PROLAPSE NOS [N81.4] 11/04/2004 03/03/2009 TOX UNINOD GOIT NO NOREEN [E05.10] 04/30/2005 09/09/2006 Thyroid cancer [C73] 07/16/2005 More... Essential hypertension [I10] DYSMETABOLIC SYNDROME X [E88.81] 08/24/2007 RECTOCELE [N81.6] 02/29/2008 03/03/2009 RECTOCELE [N81.6] 03/03/2009 VAGINAL ENTEROCELE [N81.5] 03/03/2009 Cystocele, midline [N81.11] 11/03/2011 Indeterminate pulmonary nodules [R91.8] 12/18/2012 More... Hypothyroidism, postsurgical [E89.0] High serum thyroglobulin [R79.89] 12/20/2018 Meningioma (HCC) [D32.9] 03/02/2019 More... Heart palpitations [R00.2] 10/21/2019 Chronic right-sided low back pain without sciat*10/21/2019 History of thyroid cancer [Z85.850] 10/21/2019 Prescriptions ordered this encounter Disp Refills Start End TRIAMTERENE 37.5 MG-HYDROCHLOROTHIAZ* 90 t* 3 03/10/2020 Route: ORAL Sig: Take 1 tablet by mouth once daily. Medications Discontinued During This Encounter Prescriptions - triamterene-hydrochlorothiazide (MAXZIDE-25) 37.5-25 mg pe r tablet (Discontinued) Take 1 tablet by mouth once daily. Encounter Status:Closed by GUILLERMO DONOHUE on 03/10/20 obsolete on 2020-03 OBSOLETE Refill (INTMWS) Normal 03-07-2020 [facility] [place] ([id number]) 1945 [facility] Date Time Provider Department ([id number]) 03/07/20 GUILLERMO URBINA (MULTIMEDIA DESIGNER) INTMWS During your visit today, we recorded the following informati on about you: Sheila Cheng LPN 03/10/2020 11:25 AM Signed Duplicate request. Allergies As of Date: 03/07/2020 Noted Allergy Reaction CODEINE 04/30/2005 8 - GI Upset SULFA (SULFONAMIDE ANTIBIOTICS) 11/04/2004 2 - Rash Comments: UNSURE OF REACTION Date Reviewed: 09/18/2019 Reviewed by: Hailey Brink LPN - Fully Assessed Reason for Visit: Refill Request [94] Visit Diagnosis:Essential hypertension with goal blood press ure less than 140/90 [I10] Prescriptions as of 03/07/2020 Sig: LEVOTHYROXINE 137 MCG TABLET 1.5 pills on Sundays, 1 pill * LISINOPRIL 5 MG TABLET Take 1 tablet by mouth once d* TRIAMTERENE 37.5 MG-HYDROCHLO* Take 1 tablet by mouth once d * CONJUGATED ESTROGENS 0.625 MG* Use small amount at vaginal o * MULTIVITAMIN CAPSULE Take 1 capsule by mouth once * MAGNESIUM 200 MG ( MAGNESIU* Take 1 tablet by mouth once d * ASPIRIN 81 MG CHEWABLE TABLET Take 81 mg by mouth as needed* CHOLECALCIFEROL (VITAMIN D3) * Take 2,000 Units by mouth onc * COENZYME Q10 100 MG CAPSULE Take 100 mg by mouth once zuleika* FISH OIL 500 MG CAPSULE Take one(1) capsule daily. Problem List As Of Date 03/07/2020 Noted Resolved FEMALE STRESS INCONTINENCE [N39.3] 11/04/2004 03/03/2009 UTERVAGINAL PROLAPSE NOS [N81.4] 11/04/2004 03/03/2009 TOX UNINOD GOIT NO NOREEN [E05.10] 04/30/2005 09/09/2006 Thyroid cancer [C73] 07/16/2005 More... Essential hypertension [I10] DYSMETABOLIC SYNDROME X [E88.81] 08/24/2007 RECTOCELE [N81.6] 02/29/2008 03/03/2009 RECTOCELE [N81.6] 03/03/2009 VAGINAL ENTEROCELE [N81.5] 03/03/2009 Cystocele, midline [N81.11] 11/03/2011 Indeterminate pulmonary nodules [R91.8] 12/18/2012 More... Hypothyroidism, postsurgical [E89.0] High serum thyroglobulin [R79.89] 12/20/2018 Meningioma (HCC) [D32.9] 03/02/2019 More... Heart palpitations [R00.2] 10/21/2019 Chronic right-sided low back pain without sciat*10/21/2019 History of thyroid cancer [Z85.850] 10/21/2019 Encounter Status:Closed by SHEILA CHENG LPN on 03/10/[facility]INTM[facility]) Normal 03-07-2020 [place] [facility] [place] ([id number]) 1945 [facility] Date Time Provider Department ([id number]) 03/07/20 GUILLERMO URBINA (MULTIMEDIA DESIGNER) INTMWS During your visit today, we recorded the following informati on about you: Sheila Cheng LPN 03/10/2020 11:25 AM Signed Duplicate request. Francy Sequeira 03/10/2020 11:30 AM Signed Patient called to see why medication refill was denied. No r manjit given in encounter. Please advise at [phone]. Allergies As of Date: 03/07/2020 Noted Allergy Reaction CODEINE 04/30/2005 8 - GI Upset SULFA (SULFONAMIDE ANTIBIOTICS) 11/04/2004 2 - Rash Comments: UNSURE OF REACTION Date Reviewed: 09/18/2019 Reviewed by: Hailey Brink LPN - Fully Assessed Reason for Visit: Refill Request [94] Refill Request [94] Reason For Visit History Recorded Visit Diagnosis:Essential hypertension with goal blood press ure less than 140/90 [I10] Prescriptions as of 03/07/2020 Sig: LEVOTHYROXINE 137 MCG TABLET 1.5 pills on Sundays, 1 pill * LISINOPRIL 5 MG TABLET Take 1 tablet by mouth once d* TRIAMTERENE 37.5 MG-HYDROCHLO* Take 1 tablet by mouth once d * CONJUGATED ESTROGENS 0.625 MG* Use small amount at vaginal o * MULTIVITAMIN CAPSULE Take 1 capsule by mouth once * MAGNESIUM 200 MG ( MAGNESIU* Take 1 tablet by mouth once d * ASPIRIN 81 MG CHEWABLE TABLET Take 81 mg by mouth as needed* CHOLECALCIFEROL (VITAMIN D3) * Take 2,000 Units by mouth onc * COENZYME Q10 100 MG CAPSULE Take 100 mg by mouth once zuleika* FISH OIL 500 MG CAPSULE Take one(1) capsule daily. Problem List As Of Date 03/07/2020 Noted Resolved FEMALE STRESS INCONTINENCE [N39.3] 11/04/2004 03/03/2009 UTERVAGINAL PROLAPSE NOS [N81.4] 11/04/2004 03/03/2009 TOX UNINOD GOIT NO NOREEN [E05.10] 04/30/2005 09/09/2006 Thyroid cancer [C73] 07/16/2005 More... Essential hypertension [I10] DYSMETABOLIC SYNDROME X [E88.81] 08/24/2007 RECTOCELE [N81.6] 02/29/2008 03/03/2009 RECTOCELE [N81.6] 03/03/2009 VAGINAL ENTEROCELE [N81.5] 03/03/2009 Cystocele, midline [N81.11] 11/03/2011 Indeterminate pulmonary nodules [R91.8] 12/18/2012 More... Hypothyroidism, postsurgical [E89.0] High serum thyroglobulin [R79.89] 12/20/2018 Meningioma (HCC) [D32.9] 03/02/2019 More... Heart palpitations [R00.2] 10/21/2019 Chronic right-sided low back pain without sciat*10/21/2019 History of thyroid cancer [Z85.850] 10/21/2019 Encounter Status:Closed by SHEILA CHENG LPN on 03/10/20 obsolete on 2020-01 OBSOLETE Refill (ENDMED) Normal 02-05-2020 [facility] [place] ([id number]) 1945 [facility] Time Provider Department ([id number]) 02/05/20 JAYME HO During your visit today, we recorded the following informati on about you: Alivia German Ma 02/05/2020 9:39 AM Signed Patient via [employer] requesting refills as follows: Pending Prescriptions Disp Refills LEVOTHYROXINE 137 MCG TABLET 32 tablet 11 Si.5 pills on Sundays, 1 pill all other days a week LIZZETTE: No Please review and advise. Alivia German Ma Allergies As of Date: 02/05/2020 Noted Allergy Reaction CODEINE 04/30/2005 8 - GI Upset SULFA (SULFONAMIDE ANTIBIOTICS) 11/04/2004 2 - Rash Comments: UNSURE OF REACTION Date Reviewed: 09/18/2019 Reviewed by: Hailey Brink LPN - Fully Assessed Reason for Visit: Refill Request [94] Visit Diagnosis:Thyroid cancer [C73] Order(s):levothyroxine (LEVOXYL) 137 mcg tablet1.5 pills o n Sundays, 1 pill all other days a weekDisp: 32 tabletRfl: 11 Prescriptions as of 02/05/2020 Sig: LEVOTHYROXINE 137 MCG TABLET 1.5 pills on Sundays, 1 pill * LISINOPRIL 5 MG TABLET Take 1 tablet by mouth once d* TRIAMTERENE 37.5 MG-HYDROCHLO* Take 1 tablet by mouth once d * CONJUGATED ESTROGENS 0.625 MG* Use small amount at vaginal o * MULTIVITAMIN CAPSULE Take 1 capsule by mouth once * MAGNESIUM 200 MG ( MAGNESIU* Take 1 tablet by mouth once d * ASPIRIN 81 MG CHEWABLE TABLET Take 81 mg by mouth as needed* CHOLECALCIFEROL (VITAMIN D3) * Take 2,000 Units by mouth onc * COENZYME Q10 100 MG CAPSULE Take 100 mg by mouth once zuleika* FISH OIL 500 MG CAPSULE Take one(1) capsule daily. Problem List As Of Date 02/05/2020 Noted Resolved FEMALE STRESS INCONTINENCE [N39.3] 11/04/2004 03/03/2009 UTERVAGINAL PROLAPSE NOS [N81.4] 11/04/2004 03/03/2009 TOX UNINOD GOIT NO NOREEN [E05.10] 04/30/2005 09/09/2006 Thyroid cancer [C73] 07/16/2005 More... Essential hypertension [I10] DYSMETABOLIC SYNDROME X [E88.81] 08/24/2007 RECTOCELE [N81.6] 02/29/2008 03/03/2009 RECTOCELE [N81.6] 03/03/2009 VAGINAL ENTEROCELE [N81.5] 03/03/2009 Cystocele, midline [N81.11] 11/03/2011 Indeterminate pulmonary nodules [R91.8] 12/18/2012 More... Hypothyroidism, postsurgical [E89.0] High serum thyroglobulin [R79.89] 12/20/2018 Meningioma (HCC) [D32.9] 03/02/2019 More... Heart palpitations [R00.2] 10/21/2019 Chronic right-sided low back pain without sciat*10/21/2019 History of thyroid cancer [Z85.850] 10/21/2019 Prescriptions ordered this encounter Disp Refills Start End LEVOTHYROXINE 137 MCG TABLET 32 t* 11 02/05/2020 Si.5 pills on Sundays, 1 pill all other days a week Medications Discontinued During This Encounter levothyroxine (LEVOXYL) 137 mcg tabl* 32 t* 11 12/29/201802/04 Si.5 pills on Sundays, 1 pill all other days a week Patient taking differently: Take 137 mcg by mouth once daily. (decreased secondary to low TSH and high Free T4 still after decreased from 8 pills a week t o 7.5 pills per week) Disc: Reason for discontinue is not on file. Encounter Status:Closed by JAYME HO DO on 02/05/20 cnpn on 2019-10-29 CNPN Telephone (ENDMED) Normal 10-29-2019 [place] [facility] [place] ([id number]) 1945 F [place] Date Time Provider Department ([id number]) 10/29/19 JAYME HO During your visit today, we recorded the following informati on about you: Lola Glynn RN 10/29/2019 10:07 AM Signed Hi my name is Sierra I'm ca lling from Dr. Riki Marrufo's office here in [facility](?) with Endo chronology. I have a patient sedrick bates is currently in the office. She saw one of the garnett feeder there at the [facility] and I'm just looking for some past office visits and labs. Her name i s Marietta [id number] is her date. Again I'm just l ooking for some thyroid related the labs and office visits. If you could please give me a call back at [phone] my name is Sierra thank you. Faxed over OV notes and labs per request. [phone] with confirmation Lola Glynn RN 10/29/2019 10:33 AM Signed Error below, faxed to [phone] Allergies As of Date: 10/29/2019 Noted Allergy Reaction CODEINE 04/30/2005 8 - GI Upset SULFA (SULFONAMIDE ANTIBIOTICS) 11/04/2004 2 - Rash Comments: UNSURE OF REACTION Date Reviewed: 09/18/2019 Reviewed by: Hailey Brink LPN - Fully Assessed Reason for Visit: needs OV notes, labs [Other] Prescriptions as of 10/29/2019 Sig: LISINOPRIL 5 MG TABLET Take 1 tablet by mouth once d* TRIAMTERENE 37.5 MG-HYDROCHLO* Take 1 tablet by mouth once d * LEVOTHYROXINE 137 MCG TABLET 1.5 pills on Sundays, 1 pill * Patient taking differently: Take 137 mcg by mouth once da* CONJUGATED ESTROGENS 0.625 MG* Use small amount at vaginal o * MULTIVITAMIN CAPSULE Take 1 capsule by mouth once * MAGNESIUM 200 MG ( MAGNESIU* Take 1 tablet by mouth once d * ASPIRIN 81 MG CHEWABLE TABLET Take 81 mg by mouth as needed* CHOLECALCIFEROL (VITAMIN D3) * Take 2,000 Units by mouth onc * COENZYME Q10 100 MG CAPSULE Take 100 mg by mouth once zuleika* FISH OIL 500 MG CAPSULE Take one(1) capsule daily. Problem List As Of Date 10/29/2019 Noted Resolved FEMALE STRESS INCONTINENCE [N39.3] 11/04/2004 03/03/2009 UTERVAGINAL PROLAPSE NOS [N81.4] 11/04/2004 03/03/2009 TOX UNINOD GOIT NO NOREEN [E05.10] 04/30/2005 09/09/2006 Thyroid cancer [C73] 07/16/2005 More... Essential hypertension [I10] DYSMETABOLIC SYNDROME X [E88.81] 08/24/2007 RECTOCELE [N81.6] 02/29/2008 03/03/2009 RECTOCELE [N81.6] 03/03/2009 VAGINAL ENTEROCELE [N81.5] 03/03/2009 Cystocele, midline [N81.11] 11/03/2011 Indeterminate pulmonary nodules [R91.8] 12/18/2012 More... Hypothyroidism, postsurgical [E89.0] High serum thyroglobulin [R79.89] 12/20/2018 Meningioma (HCC) [D32.9] 03/02/2019 More... Heart palpitations [R00.2] 10/21/2019 Chronic right-sided low back pain without sciat*10/21/2019 History of thyroid cancer [Z85.850] 10/21/2019 Encounter Status:Closed by LOLA GLYNN RN on 10/29/19 progress on 2019-09 PROGRESS HNO ID: [id number] Normal 09-18-2019 [facility] Author: Marika Alcaraz [place] Service: ? ([id number]) Author Type: Physician Type: Progress Notes Filed: 10/21/2019 6:58 PM Note Text: This note was created using NoteWriter. Subjective Marietta Temple is a 74 year old female. Patient presents with: Follow Up SUBJECTIVE: Marietta Temple is a 74 year old year old lady here today for 6 month follow up appointment for review of medical conditions. Doing better less pain in side. Stopped exercises she had been doing. Started back at gentle exercises. Not feeling the pressure as much with the skipped beats. Did have episodes while wearing the Holter 48 hour monitor. Correlated with findings on Holter. Decreased the dose levothyroxine from 8 pills a week down to 7.5 pills a week. Had episode of mild vertigo recently but did not need christinaban d to do the vestibular treatment maneuver that time. Happens when laying down in bed. Sees the [facility] for derm and ophtho PAST MEDICAL HISTORY Diagnosis Date - Benign neoplasm of colon - Colon polyp - Cystocele, midline - Hemorrhage of gastrointestinal tract, unspecified - Hypothyroidism, postsurgical - Indeterminate pulmonary nodules 12/18/2012 CT stable 2009 through 10/2012. 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 - triamterene-hydrochlorothiazide (MAXZIDE-25) 37.5-25 mg pe r tablet Take 1 tablet by mouth once daily. - levothyroxine (LEVOXYL) 137 mcg tablet 1.5 pills on Tuesday s, 1 pill all other days a week - conjugated estrogens (PREMARIN) vaginal cream Use small am ount at vaginal opening twice a week - Multivitamin capsule Take 1 capsule by mouth once daily. - magnesium oxide 200 mg magnesium tab Take 1 tablet by mout h once daily. - aspirin 81 mg chewable tablet Take 81 mg by mouth as neede d. - cholecalciferol (VITAMIN D-3) 2,000 unit tablet Take 2,000 Units by mouth once daily. - coenzyme Q10 (CO Q-10) 100 mg cap Take 100 mg by mouth onc e daily. - FISH OIL CAP Take one(1) capsule daily. No current facility-administered medications for this visit. Review of Systems Objective BP 136/70 Pulse 60 Resp 16 Wt 82.6 kg (182 lb) BMI 3 0.51 kg/m? Last 5 Encounter BP Readings: Date: BP: 09/18/2019 136/70 09/10/2019 134/76 09/06/2019 128/82 06/20/2019 150/79[BP Jose Average[ 03/02/2019 140/82 Last 5 Encounter Wt Readings: Date: Wt: 09/18/2019 82.6 kg (182 lb) 09/10/2019 83 kg (183 lb) 09/06/2019 83.9 kg (185 lb) 03/02/2019 83.5 kg (184 lb) 02/09/2019 83.9 kg (185 lb) Physical Exam Constitutional: Appearance: Normal appearance. HENT: Right Ear: Tympanic membrane and ear canal normal. Left Ear: Tympanic membrane and ear canal normal. Ears: Comments: mild dryness and flaking in conchal bowl with a sm all scratch in right bowl Eyes: Conjunctiva/sclera: Conjunctivae normal. Neck: Musculoskeletal: Normal range of motion. Cardiovascular: Rate and Rhythm: Normal rate and regular rhythm. Comments: Occasional ectopy Pulmonary: Effort: Pulmonary effort is normal. Breath sounds: Normal breath sounds. Musculoskeletal: Right lower leg: Edema present. Left lower leg: Edema (L>R ankle and LE edema) present. Comments: Tender posterior iliac crest areas bilaterally. Skin: General: Skin is warm and dry. Neurological: General: No focal deficit present. Mental Status: She is alert and oriented to person, place, a nd time. Psychiatric: Mood and Affect: Mood normal. Behavior: Behavior normal. Thought Content: Thought content normal. Judgment: Judgment normal. Holter monitor report pending Component Latest Ref Rng AND Units 03/14/2018 03/17/2018201712/27/2018 09/06/2019 Protein, Total 6.3 - 8.0 g/dL 6.6 Albumin 3.9 - 4.9 g/dL 3.9 Calcium 8.5 - 10.2 mg/dL 9.4 9.1 9.9 Bilirubin, Total 0.2 - 1.3 mg/dL 0.3 Alkaline Phosphatase 32 - 117 U/L 84 AST 13 - 35 U/L 28 Glucose 74 - 99 mg/dL 98 107 (H) 101 (H) BUN 7 - 21 mg/dL 15 15 13 Creatinine 0.58 - 0.96 mg/dL 0.66 0.63 0.62 Sodium 136 - 144 mmol/L 143 141 139 Potassium 3.7 - 5.1 mmol/L 4.1 3.8 4.1 Chloride 97 - 105 mmol/L 99 101 101 CO2 22 - 30 mmol/L 30 28 28 Anion Gap 9 - 18 mmol/L 14 12 10 ALT 7 - 38 U/L 34 eGFR- >60 >60 >60 eGFR-All Other Races . >60 >60 >60 WBC 3.70 - 11.00 k/uL 9.05 7.69 RBC 3.90 - 5.20 m/uL 5.03 5.07 Hemoglobin 11.5 - 15.5 g/dL 13.8 13.9 Hematocrit 36.0 - 46.0 % 44.2 44.1 MCV 80.0 - 100.0 fL 87.9 87.0 MCH 26.0 - 34.0 pG 27.4 27.4 MCHC 30.5 - 36.0 g/dL 31.2 31.5 RDW-CV 11.5 - 15.0 % 14.6 14.7 Platelet Count 150 - 400 k/uL 319 305 MPV 9.0 - 12.7 fL 11.4 11.6 Absolute nRBC <0.01 k/uL <0.01 <0.01 Cholesterol, Total <200 mg/dL 210 (H) Triglyceride <150 mg/dL 131 HDL Cholesterol >39 mg/dL 60 LDL Cholesterol <100 mg/dL 124 (H) Non HDL Cholesterol <130 mg/dL 150 (H) Fasting Time hrs 12 VLDL Cholesterol <30 mg/dL 26 TC:HDL Ratio <5.10 3.50 LDL:HDL Ratio <2.54 2.07 Thyroglobulin 1.6 - 59.9 ng/mL 20.3 4.6 TG Antibody Screen <14.4 IU/mL 1.1 1.0 Hemoglobin A1C 4.3 - 5.6 % 5.9 (H) Estimated Average Glucose mg/dL 123 Thyroglobulin, FNA Lymph Node ng/mL <0.1 TSH 0.270 - 4.200 uU/mL 40.600 (H) 0.199 (L) 0.066 (L) Free T4 0.9 - 1.7 ng/dL 1.9 (H) 1.9 (H) 1.8 (H) Vitamin B12 232 - 1,245 pg/mL 470 Magnesium 1.7 - 2.3 mg/dL 2.1 Assessment and Plan Encounter Diagnosis ICD-10-CM 1. Hypothyroidism, postsurgical E89.0 TSH BLD T4 FREE/FREE THYROX TSH suppressed; adjust dose and recheck labs as discussed. C ontinue to adjust dose as indicated based on labs and symptoms 2. Essential hypertension I10 lisinopril (ZESTRIL, PRINIVIL) 5 mg tablet BASIC METABOLIC PNL CBC 3. Heart palpitations R00.2 4. Chronic right-sided low back pain without sciatica M54.5 G89.29 5. History of thyroid cancer Z85.850 THYROGLOBULIN BLD No signs of recurrence 6. Encounter for long-term current use of medication Z79.899 BASIC METABOLIC PNL 7. Benign paroxysmal positional vertigo, unspecified lateral ity H81.10 Above issues addressed with patient. Patient involved in shared decision making for management of medical issues. Continue present management. Further evaluation and treatment as indicated. History and medications reviewed. Epic updated as needed Refills and/or prescriptions taken care of and meds adjusted as indicated after reviewed history, exam and labs. Health Maintenance reviewed. Updated record and/or ordered t ests as recorded. Encouraged on efforts at healthy diet and regular exercise a nd adequate sleep. The majority of the visit was spent counseling and/or coordi nating care for the patient. [id number] time was at least 30 minutes. MD jossie Scruggsov on 2019-09-18 CNOV Office Visit (INTMWS) Normal 09-18-19 [address] [place] Fields ([id number]) 1945 [place] Date Time Provider Department ([id number]) 09/18/19 11:20 AM MARIKA ALCARAZ INTMWS During your visit today, we recorded the following informati on about you: Pulse Respiration Blood pressure Weight 60/minute 16/minute 136/70 82.6 kg Marika Alcaraz MD 10/21/2019 6:58 PM Signed This note was created using [employer]. Subjective Marietta Temple is a 74 year old female. Patient presents with: Follow Up SUBJECTIVE: Marietta Temple is a 74 year old year old lady here today for 6 month follow up appointment for review of medical conditions. Doing better less pain in side. Stopped exercises she had been doing. Started back at gentle exercises. Not feeling the pressure as much with the skipped beats. Did have episodes while wearing the Holter 48 hour monitor . Correlated with findings on Holter. Decreased the dose levothyroxine from 8 pills a week down to 7.5 pills a week. Had episode of mild vertigo recently but did not need vito busch to do the vestibular treatment maneuver that time. Happens when laying down in bed. Sees the [facility] for derm and ophtho PAST MEDICAL HISTORY Diagnosis Date - Benign neoplasm of colon - Colon polyp - Cystocele, midline - Hemorrhage of gastrointestinal tract, unspecified - Hypothyroidism, postsurgical - Indeterminate pulmonary nodules 12/18/2012 CT stable 2009 through 10/2012. 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 fail to improve. Follow-up and Disposition History Recorded Encounter Status:Closed by MARIKA ALCARAZ MD [facility]/30[facility]INT[facility]) Normal 09-07-2019 [facility] MARIETTA TEMPLE ([id number]) 1945 [place] Date Time Provider Department ([id number]) 09/07/19 MARIKA ALCARAZ INTMWS During your visit today, we recorded the following informati on about you: [facility] 09/07/2019 8:31 AM Signed ----- Message from Eunice ([facility]) Older sent at 09/07/2019 8:03 AM EST ----- Labs okay except thyroid test showing you are on too high of a dose of levothyroxine. This can cause palpitatio ns. Advise decreasing to the dose that your garnett feeder had recommended last year, I think it w as 1 tab daily except 1.5 tabs on Tuesday Eunice Johnson, HYDROELECTRIC OPERATOR.MAYANK [facility] 09/07/2019 8:34 AM Signed Sent secure [employer] message to patient with below informatio n. Snwo [facility] September 07, 2019 8:31 AM Cinthya Mcneal RN 09/07/2019 1:58 PM Signed Pt called, verified by name and birthdate. Patient notified of results and provider's instructions. Patient verbalizes understanding. Cinthya Mcneal RN Allergies As of Date: 09/07/2019 Noted Allergy Reaction CODEINE 04/30/2005 8 - GI Upset SULFA (SULFONAMIDE ANTIBIOTICS) 11/04/2004 2 - Rash Comments: UNSURE OF REACTION Date Reviewed: 09/06/2019 Reviewed by: Chari Willett LPN - Fully Assessed Reason for Visit: Results [95] Prescriptions as of 09/07/2019 Sig: LISINOPRIL 2.5 MG TABLET Take 1 tablet by mouth twice * TRIAMTERENE 37.5 MG-HYDROCHLO* Take 1 tablet by mouth once d * LEVOTHYROXINE 137 MCG TABLET 1.5 pills on Sundays, 1 pill * CONJUGATED ESTROGENS 0.625 MG* Use small amount at vaginal o * MULTIVITAMIN CAPSULE Take 1 capsule by mouth once * MAGNESIUM 200 MG ( MAGNESIU* Take 1 tablet by mouth once d * ASPIRIN 81 MG CHEWABLE TABLET Take 81 mg by mouth as needed* CHOLECALCIFEROL (VITAMIN D3) * Take 2,000 Units by mouth onc * COENZYME Q10 100 MG CAPSULE Take 100 mg by mouth once zuleika* FISH OIL 500 MG CAPSULE Take one(1) capsule daily. Problem List As Of Date 09/07/2019 Noted Resolved FEMALE STRESS INCONTINENCE [N39.3] 11/04/2004 03/03/2009 UTERVAGINAL PROLAPSE NOS [N81.4] 11/04/2004 03/03/2009 TOX UNINOD GOIT NO NOREEN [E05.10] 04/30/2005 09/09/2006 Thyroid cancer [C73] 07/16/2005 More... Essential hypertension with goal blood pressure* DYSMETABOLIC SYNDROME X [E88.81] 08/24/2007 RECTOCELE [N81.6] 02/29/2008 03/03/2009 RECTOCELE [N81.6] 03/03/2009 VAGINAL ENTEROCELE [N81.5] 03/03/2009 Cystocele, midline [N81.11] 11/03/2011 Indeterminate pulmonary nodules [R91.8] 12/18/2012 More... Hypothyroidism, postsurgical [E89.0] High serum thyroglobulin [R79.89] 12/20/2018 Meningioma (HCC) [D32.9] 03/02/2019 More... Encounter Status:Closed by SNOW MAST CMA on 09/07/19 tsh on 2019-09-06 TSH Qn 0.066 0.270-4.200 uU/mL Low 09-06-2019 [facility] ([id number]) Comment: Performed By: #### BMP, TSH, FT4 ####[facility] [id number] [place] [address] [phone] progress on 2019-09 PROGRESS HNO ID: [id number] Normal 09-06-2019 [facility] Author: Eunice (Hydraulic Modeling Engineer) [facility] Service: ? ([id number]) Author Type: Nurse Practitioner Type: Progress Notes Filed: 09/06/2019 1:28 PM Note Text: CC: Patient presents with: Established Patient: Possible irregular heart beat x 1 week HPI Marietta Temple is a 74 year old female who presents today for p alpitations that started over one year ago but have become more frequent over the past week. Now occurring almost daily with episodes lasting less than 30 seconds characterized as skipping. Associated symptoms: None. Patient denies dizziness, lightheadness, feeling faint/presy ncope, chest pain and shortness of breathe. Symptoms seem related to nothing in particular. Can occur at rest and with activity, no pattern. She has been to able to exercise like she normally does including water aerobics. Symptoms are relieved by: spontaneously without any interven tion. Denies significant caffeine intake, drinks a lot of water Denies history of palpitations or cardiac history other than hypertension. 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 This is ma naged by endocrinology. She was advised last year to decrease the dos e of her levothyroxine but developed palpitations shortly after that so increased it back to previous dose of 137 mcg, 1.5 tabs 2 days a week and 1 all other days. Has not had TSH checked since then. REVIEW OF SYSTEMS General: no fevers, no chills, no night sweats, no change in energy and no significant changes in weight GI: No history of anemia, no black/bloody stools. No nausea, vomiting, or diarrhea. PAST MEDICAL HISTORY Diagnosis Date - Benign neoplasm of colon - Colon polyp - Cystocele, midline - Hemorrhage of gastrointestinal tract, unspecified - Hypothyroidism, postsurgical - Indeterminate pulmonary nodules 12/18/2012 CT stable 2009 through 10/2012. 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 - Pain in joint, shoulder region 05/16/2007 - Plantar fasciitis - Postmenopausal atrophic vaginitis - Rectocele - Salzmann's nodular dystrophy - Symptomatic menopausal or female climacteric states 03/03/20 09 - Unspecified essential hypertension - Vaginal enterocele, congenital or acquired - Vertigo PAST SURGICAL HISTORY Procedure Laterality Date - COLONOSCOP W/ OR W/O BRS SPEC 12/14/02 Colonoscopy - COLONOSCOP W/ OR W/O BRS SPEC 12/19/2007 Colonoscopy - COLONOSCOP W/ OR W/O BRS SPEC 01/16/13 Colonoscopy - COLONOSCOP W/ OR W/O BRS SPEC 11/08/2017 Colonoscopy - CORNEAL SMEAR 06/03/2004 Corneal Scraping OD - CORNEAL SMEAR 10/29/13 Left eye - DANDC, DIAG AND/OR THERAPEUTIC Dilation AND curettage - PAST SURGICAL HISTORY OF uterine polyps removed - PAST SURGICAL HISTORY OF 01/11/2008 breast reduction and tummy- tuck - PAST SURGICAL HISTORY OF 08/16/2011 (R) knee replacement- [facility]- Dr. Blood - PAST SURGICAL HISTORY OF 10/29/2013 Superficial keratectomy, Left eye. - PTK 02/25/2014 WITH [facility] OS FOR SALZMANNS NODULAR DYSTROPHY - THYROIDECTOMY 05/25/2005 - VAGINAL HYSTERECTOMY 10/2004 Hysterectomy, vaginal + vag repair ALLERGIES Codeine; Sulfa (Sulfonamide Antibiotics) MEDICATIONS lisinopril 2.5 mg tablet Take 1 tablet by mouth twice daily. triamterene-hydrochlorothiazide (MAXZIDE-25) 37.5-25 mg per tablet Take 1 tablet by mouth once daily. levothyroxine (LEVOXYL) 137 mcg tablet 1.5 pills on Sundays, 1 pill all other days a week conjugated estrogens (PREMARIN) vaginal cream Use small amou nt at vaginal opening twice a week Multivitamin capsule Take 1 capsule by mouth once daily. magnesium oxide 200 mg magnesium tab Take 1 tablet by mouth once daily. aspirin 81 mg chewable tablet Take 81 mg by mouth as needed. cholecalciferol (VITAMIN D-3) 2,000 unit tablet Take 2,000 U nits by mouth once daily. coenzyme Q10 (CO Q-10) 100 mg cap Take 100 mg by mouth once daily. FISH OIL CAP Take one(1) capsule daily. FAMILY HISTORY Problem Relation Age of Onset - Diabetes Mother - Heart Mother - Emphysema Father - Diabetes Sister - Diabetes Brother - Cancer Brother brain - Cancer Brother abdominal cancer - Heart Brother - Diabetes Maternal Grandmother - Heart Brother - Diabetes Brother - Glaucoma Sister - Cataract Sister - other (Hypothyroidism) Sister - Ischemic Heart Disease Son s/p [place] Social History Tobacco Use - Smoking status: Former Smoker Packs/day: 1.00 Years: 30.00 Pack years: 30.00 Last attempt to quit: 09/30/1999 Years since quittin.9 - Smokeless tobacco: Never Used Substance Use Topics - Alcohol use: Yes Comment: Rarely 1 per month - Drug use: No PHYSICAL EXAM BP 128/82 Pulse 66 Temp 36 ?C (96.8 ?F) Resp 18 Wt 8 3.9 kg (185 lb) SpO2 96% BMI 31.01 kg/m? General Appearance: well appearing, in no acute distress, al ert Pysch: mood and affect broad and appropriate Skin: Skin color, texture, turgor normal for age; Oropharynx: moist Lungs: lungs clear to auscultation. No wheezing, rhonchi, ra les Heart: RRR without murmur, gallop, or rubs. No ectopy Ext: no edema in LE bilaterally, good distal pulses ASSESSMENT/PLAN: 1. Heart palpitations - ICD9: 785.1, ICD10: R00.2 (primary d iagnosis) ECG COMPLETE showing sinus arrhythmia with occasional PVC's, left axis deviation with pulmonary disease pattern. Patient denies his tory of COPD or asthma. She is a former smoker, quit many years ago. Reza es frequent cough or wheeze. No alarm symptoms or exam findings. Work-up further with: - TSH BLD - T4 FREE/FREE THYROX - HOLTER MONITOR 48 HOUR Follow-up pending results 2. Hypothyroidism, postsurgical - ICD9: 244.0, ICD10: E89.0 Recheck thyroid labs, patient did not decrease dose last yea r as advised by her garnett feeder - TSH BLD - T4 FREE/FREE THYROX Prescription instructions reviewed with patient as applicabl e. Potential red flag symptoms discussed with the patient. Reviewed appro priate action plan to take if red flag symptoms occur. Patient agreeable t o treatment plan. Eunice Johnson, HYDROELECTRIC OPERATOR.POLICE DISPATCHER hemoglobin a1c on HbA1c (Bld) [Mass fraction] 5.9 4.3-5.6 % High [facility] ([id number]) Comment: Result Comment: [place] Es betes Association guidelines indicate that patients with HgbA1c in the range 5.7-6.4% are at increased risk for development of diabetes, and intervention by lifestyle modification may be beneficial. HgbA1c greater o r equal to 6.5% is considered diagnostic of diabetes. Performed By: #### CBC, HBA1 C ####[facility] [place], [place] [phone] HbA1c (Bld) [Mass fraction] 123 mg/dL Normal [facility] ([id number]) Comment: Result Comment: eAG: (Estima charmaine average glucose) is a calculated value from HgbA1c and is signs sales representative of the average blood glucose level in the last 2-3 month period. Performed By: #### CBC, HBA1 C ####[place] [id number] [place], [place] [phone] free t4 on Free T4 [Mass/Vol] 1.8 0.9-1.7 ng/dL High 09-06-2019 [facility] ([id number]) Comment: Performed By: #### BMP, TSH, FT4 ####[facility] [address] [place] [address] [phone] ecg complete on ECG COMPLETE NAME : MARIETTA TEMPLE Normal 09-06-2019 [facility] PID : [id number] [place] ([id number]) : 1945 Gender : Female Race : ORD : [id number] Procedure Date : Sep 06 2019 11:16:07 Edit Date : Sep 10 2019 15:17:20 Diagnosis:SINUS RHYTHM WITH SINUS ARRHYTHMIA WITH OCCASIONAL PREMATURE VENTRICULAR COMPLEXES LEFT AXIS DEVIATION ABNORMAL ECG Confirmed by MD CAMPBELL GREGORY () on 09/10/2019 3:17:18 PM Ventricular Rate : 78 BPM Atrial Rate : 78 BPM P-R Interval : 182 ms QRS Duration : 84 ms Q-T Interval : 384 ms QTC Calculation(Bazett) : 437 ms P [place] : 52 degrees R [place] : -35 degrees T [place] : 50 degrees Test Reason : Location : 185 [facility] Overread By : MD CAMPBELL GREGORY Edited By : MD CAMPBELL GREGORY Referred By : EUNICE JOHNSON Acquired by : elyse CHOW on 2019-09-06 [facility] Office Visit (INTMWS) Normal 09-06-[address] [place] [address] [facility] MARIETTA TEMPLE ([id number]) 1945 F [facility] Time Provider Department ([id number]) 09/06/19 11:20 AM EUNICE JOHNSON (MAYANK) INTMWS During your visit today, we recorded the following informati on about you: Temperature Pulse Respiration Blood pressure 96.8 degrees 66/minute 18/minute 128/82 Weight 83.9 kg Eunice Johnson APRN.CNP 09/06/2019 1:28 PM Signed CC: Patient presents with: Established Patient: Possible irregular heart beat x 1 week HPI Marietta Temple is a 74 year old female who presents today for palpitations that started over one year ago bu t have become more frequent over the past week. Now occurring almost daily with episodes lasting less than 30 seconds characterized as skipping. Associated symptoms: None. Patient denies dizziness, lightheadness, feeling faint/presyncope, chest pain and shortness of breathe. Symptoms seem related to nothing in particular. Can occur at rest and with activity, no pattern. She has been to able to ex ercise like she normally does including water aerobics. Symptoms are relieved by: spontaneously without any interven tion. Denies significant caffeine intake, drinks a lot of water Denies history of palpitations or cardiac history other than hypertension. 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 This is ma naged by endocrinology. She was advised last year to decrease the dos e of her levothyroxine but developed palpitations shortly after dilia t so increased it back to previous dose of 137 mcg, 1.5 ta bs 2 days a week and 1 all other days. Has not had TSH checked since then. REVIEW OF SYSTEMS General: no fevers, no chills, no night sweats, no change in energy and no significant changes in weight GI: No history of anemia, no black/bloody stools. No nausea, vomiting, or diarrhea. PAST MEDICAL HISTORY Diagnosis Date - Benign neoplasm of colon - Colon polyp - Cystocele, midline - Hemorrhage of gastrointestinal tract, unspecified - Hypothyroidism, postsurgical - Indeterminate pulmonary nodules 12/18/2012 CT stable 2009 through 10/2012. 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 - Pain in joint, shoulder region 05/16/2007 - Plantar fasciitis - Postmenopausal atrophic vaginitis - Rectocele - Salzmann's nodular dystrophy - Symptomatic menopausal or female climacteric states 03/03/20 09 - Unspecified essential hypertension - Vaginal enterocele, congenital or acquired - Vertigo PAST SURGICAL HISTORY Procedure Laterality Date - COLONOSCOP W/ OR W/O BRS SPEC 12/14/02 Colonoscopy - COLONOSCOP W/ OR W/O BRS SPEC 12/19/2007 Colonoscopy - COLONOSCOP W/ OR W/O BRS SPEC 01/16/13 Colonoscopy - COLONOSCOP W/ OR W/O BRS SPEC 11/08/2017 Colonoscopy - CORNEAL SMEAR 06/03/2004 Corneal Scraping OD - CORNEAL SMEAR 10/29/13 Left eye - DANDC, DIAG AND/OR THERAPEUTIC Dilation AND curettage - PAST SURGICAL HISTORY OF uterine polyps removed - PAST SURGICAL HISTORY OF 01/11/2008 breast reduction and tummy- tuck - PAST SURGICAL HISTORY OF 08/16/2011 (R) knee replacement- [facility]- Dr. Blood - PAST SURGICAL HISTORY OF 10/29/2013 Superficial keratectomy, Left eye. - PTK 02/25/2014 WITH [facility] OS FOR SALZMANNS NODULAR DYSTROPHY - THYROIDECTOMY 05/25/2005 - VAGINAL HYSTERECTOMY 10/2004 Hysterectomy, vaginal + vag repair ALLERGIES Codeine; Sulfa (Sulfonamide Antibiotics) MEDICATIONS lisinopril 2.5 mg tablet Take 1 tablet by mouth twice daily. triamterene-hydrochlorothiazide (MAXZIDE-25) 37.5-25 mg per tablet Take 1 tablet by mouth once daily. levothyroxine (LEVOXYL) 137 mcg tablet 1.5 pills on Sundays, 1 pill all other days a week conjugated estrogens (PREMARIN) vaginal cream Use small amou nt at vaginal opening twice a week Multivitamin capsule Take 1 capsule by mouth once daily. magnesium oxide 200 mg magnesium tab Take 1 tablet by mouth once daily. aspirin 81 mg chewable tablet Take 81 mg by mouth as needed. cholecalciferol (VITAMIN D-3) 2,000 unit tablet Take 2,000 Units by mouth once daily. coenzyme Q10 (CO Q-10) 100 mg cap Take 100 mg by mouth once daily. FISH OIL CAP Take one(1) capsule daily. FAMILY HISTORY Problem Relation Age of Onset - Diabetes Mother - Heart Mother - Emphysema Father - Diabetes Sister - Diabetes Brother - Cancer Brother brain - Cancer Brother abdominal cancer - Heart Brother - Diabetes Maternal Grandmother - Heart Brother - Diabetes Brother - Glaucoma Sister - Cataract Sister - other (Hypothyroidism) Sister - Ischemic Heart Disease Son s/p [place] Social History Tobacco Use - Smoking status: Former Smoker Packs/day: 1.00 Years: 30.00 Pack years: 30.00 Last attempt to quit: 09/30/1999 Years since quittin.9 - Smokeless tobacco: Never Used Substance Use Topics - Alcohol use: Yes Comment: Rarely 1 per month - Drug use: No PHYSICAL EXAM BP 128/82 Pulse 66 Temp 36 ?C (96.8 ?F) Resp 18 Wt 83.9 kg (185 lb) SpO2 96% BMI 31.01 kg/m? General Appearance: well appearing, in no acute distress, al ert Pysch: mood and affect broad and appropriate Skin: Skin color, texture, turgor normal for age; Oropharynx: moist Lungs: lungs clear to auscultation. No wheezing, rhonchi, ra les Heart: RRR without murmur, gallop, or rubs. No ectopy Ext: no edema in LE bilaterally, good distal pulses ASSESSMENT/PLAN: 1. Heart palpitations - ICD9: 785.1, ICD10: R00.2 (primary d iagnosis) ECG COMPLETE showing sinus arrhythmia with occasional PVC's, left axis deviation with pulmonary disease pattern. Patient denies h istory of COPD or asthma. She is a former smoker, quit many years ago. Denies frequent cough or wheeze. No alarm symptoms or exam findings. Work-up further with: - TSH BLD - T4 FREE/FREE THYROX - HOLTER MONITOR 48 HOUR Follow-up pending results 2. Hypothyroidism, postsurgical - ICD9: 244.0, ICD10: E89.0 Recheck thyroid labs, rosaline t did not decrease dose last year as advised by her garnett feeder - TSH BLD - T4 FREE/FREE THYROX Prescription instructions reviewed with patient as vasquez licable. Potential red flag symptoms discussed with the patient. Review ed appropriate action plan to take if red flag symptoms occur. Patient agreeable to treatm ent plan. Eunice Johnson, HYDROELECTRIC OPERATOR.POLICE DISPATCHER Referring Provider: SELF [200] Allergies As of Date: 09/06/2019 Noted Allergy Reaction CODEINE 04/30/2005 8 - GI Upset SULFA (SULFONAMIDE ANTIBIOTICS) 11/04/2004 2 - Rash Comments: UNSURE OF REACTION Date Reviewed: 09/06/2019 Reviewed by: Chari Willett LPN - Fully Assessed Reason for Visit: Established Patient [175] Cmt: Possible irregular heart beat x 1 week Primary Visit Diagnosis:Heart palpitations [R00.2] Other Visit Diagnosis:Hypothyroidism, postsurgical [E89.0] Order(s):ECG COMPLETE [ECG01] Order #: [id number] FUTURE TSH BLD [SQTSH] Order #: [id number] FUTURE T4 FREE/FREE THYROX [SQFT4] Order #: [id number] FUTURE HOLTER MONITOR 48 HOUR [[id number]] Order #: [id number] Prescriptions as of 09/06/2019 Sig: LISINOPRIL 2.5 MG TABLET Take 1 tablet by mouth twice * TRIAMTERENE 37.5 MG-HYDROCHLO* Take 1 tablet by mouth once d * LEVOTHYROXINE 137 MCG TABLET 1.5 pills on Sundays, 1 pill * CONJUGATED ESTROGENS 0.625 MG* Use small amount at vaginal o * MULTIVITAMIN CAPSULE Take 1 capsule by mouth once * MAGNESIUM 200 MG ( MAGNESIU* Take 1 tablet by mouth once d * ASPIRIN 81 MG CHEWABLE TABLET Take 81 mg by mouth as needed* CHOLECALCIFEROL (VITAMIN D3) * Take 2,000 Units by mouth onc * COENZYME Q10 100 MG CAPSULE Take 100 mg by mouth once zuleika* FISH OIL 500 MG CAPSULE Take one(1) capsule daily. Problem List As Of Date 09/06/2019 Noted Resolved FEMALE STRESS INCONTINENCE [N39.3] 11/04/2004 03/03/2009 UTERVAGINAL PROLAPSE NOS [N81.4] 11/04/2004 03/03/2009 TOX UNINOD GOIT NO NOREEN [E05.10] 04/30/2005 09/09/2006 Thyroid cancer [C73] 07/16/2005 More... Essential hypertension with goal blood pressure* DYSMETABOLIC SYNDROME X [E88.81] 08/24/2007 RECTOCELE [N81.6] 02/29/2008 03/03/2009 RECTOCELE [N81.6] 03/03/2009 VAGINAL ENTEROCELE [N81.5] 03/03/2009 Cystocele, midline [N81.11] 11/03/2011 Indeterminate pulmonary nodules [R91.8] 12/18/2012 More... Hypothyroidism, postsurgical [E89.0] High serum thyroglobulin [R79.89] 12/20/2018 Meningioma (HCC) [D32.9] 03/02/2019 More... Encounter Status:Closed by EUNICE JOHNSON POLICE DISPATCHER on 09/06/19 cbc on 2019-09-06 Absolute nRBC <0.01 <0.01 Normal 09-06-2019 [facility] [place] [facility] ([id number]) Comment: Performed By: #### CBC, HBA1 C ####[address] [place], [place] [phone] Erythrocyte distribution 14.7 11.5-15.0 % Normal 09-06 [facility] width (RBC) [Ratio] [place] ([id number]) Comment: Performed By: #### CBC, HBA1 C ####[address] [place] [phone] Hematocrit (Bld) [Volume 44.1 36.0-46.0 % Normal 09-06 [facility] fraction] [place] ([id number]) Comment: Performed By: #### CBC, HBA1 C ####[address] [place] [phone] Hemoglobin (Bld) 13.9 11.5-15.5 g/dL Normal 09-06-2019 [facility] [Mass/Vol] [place] ([id number]) Comment: Performed By: #### CBC, HBA1 C ####[address] [phone] MCH (RBC) [Entitic mass] 27.4 26.0-34.0 pG Normal 09-06 [facility] ([id number]) Comment: Performed By: #### CBC, HBA1 C ####[place] [address], [place] [phone] MCHC (RBC) [Mass/Vol] 31.5 30.5-36.0 g/dL Normal 09-06-19 [facility] ([id number]) Comment: Performed By: #### CBC, HBA1 C ####[place] [address], [place] [phone]- [phone] MCV (RBC) [Entitic vol] 87.0 80.0-100.0 fL Normal 09-06 [facility] ([id number]) Comment: Performed By: #### CBC, HBA1 C ####[address] [phone] Platelet mean volume 11.6 9.0-12.7 fL Normal 0 [facility] (Bld) [Entitic vol] [place] ([id number]) Comment: Performed By: #### CBC, HBA1 C ####[address] [phone] Platelets (Bld) [#/Vol] 305 150-400 k/uL Normal 2019 [facility] ([id number]) Comment: Performed By: #### CBC, HBA1 C ####[address] [phone] RBC (Bld) [#/Vol] 5.07 3.90-5.20 m/uL Normal 09-06-2019 [facility] ([id number]) Comment: Performed By: #### CBC, HBA1 C ####[address] [phone] WBC (Bld) [#/Vol] 7.69 3.70-11.00 k/uL Normal 09-06-2019 [facility] ([id number]) Comment: Performed By: #### CBC, HBA1 C ####[address] [phone] basic metabolic panl on 2019-09-06 Anion gap [Moles/Vol] 10 9-18 mmol/L Normal 09-06-19 20 [facility] ([id number]) Comment: Performed By: #### BMP, TSH, FT4 #### [facility] [address] [place], [place] [id number] Calcium [Mass/Vol] 9.9 8.5-10.2 mg/dL Normal 09-06-2019 [facility] ([id number]) Comment: Performed By: #### BMP, TSH, FT4 #### [facility] [address] [place] [address] Chloride [Moles/Vol] 101 97-105 mmol/L Normal 0 [facility] ([id number]) Comment: Performed By: #### BMP, TSH, FT4 #### [facility] [address] [place] [address] CO2 [Moles/Vol] 28 22-30 mmol/L Normal 09-06-2019 [facility] (73642) Comment: Performed By: #### BMP, TSH, FT4 #### [facility] [address] [place] [address] Creatinine [Mass/Vol] 0.62 0.58-0.96 mg/dL Normal 09-06-19 20 [facility] ([id number]) Comment: Performed By: #### BMP, TSH, FT4 #### [facility] [address] [place] [address] eGFR- Amer. >60 Normal 09-06-2019 [facility] ([id number]) Comment: Performed By: #### BMP, TSH, FT4 #### [facility] [address] [place] [address] GFR/1.73 sq M predicted >60 mL/min/{1.73_m2} Normal 09-06-2019 [facility] among non-blacks [facility] ([id number]) (S/P/Bld) [Vol rate/Area] Comment: Result Comment: eGFR (Estima charmaine GFR) Units of measure: mL/min/1.73 meters squared eGFR is derived from the ree xpressed MDRD Study equation using the following parameters: serum creatinine, age, gender and race. The creatinine assay has been calibrated to be traceable to IDMS. An eGFR <60 mL/min/1.73m2 fo r >3 months is consistent with chronic kidney disease. Refer to KDOQI guidelines for clinical interpretation. In patients with unstable re nal function, e.g. those with acute kidney injury, the eGFR may not accurately reflect actual GFR. Performed By: #### VICK CHRISTIE FT4 #### [facility] [address] [place], [place] [address] Glucose [Mass/Vol] 101 74-99 mg/dL High 09-06-2019 [facility] ([id number]) Comment: Result Comment: The [place] Diabetes Association (ADA) provides guidance for cutoff values for fasting glucose and random glucose. The ADA defines fasting as no caloric intake for at least 8 hours. Fas ting plasma glucose results between 100 to 125 mg/dL indicate increased risk for diabetes (prediabetes). Fasting plasma glucose resul ts greater than or equal to 126 mg/dL meet the criteria for diagnosis of diabetes. In the absence of unequivocal hyperglycemia, results should be confirmed by repeat testing. In a patient with classic s ymptoms of hyperglycemia or hyperglycemic crisis, random plasma glucose results greater than or equal to 200 mg/dL meet the criteria for diagnosis of diabetes. Reference: Standards of [facility] Care in Diabetes 2016, [place] Diabetes Association. Diabetes Care. 2016.39(Suppl 1). Performed By: #### VICK CHRISTIE FT4 #### [facility] [address] [place], [place] [address] Potassium [Moles/Vol] 4.1 3.7-5.1 mmol/L Normal 09-06-19 [facility] ([id number]) Comment: Performed By: #### PRATIK TSH FT4 #### [facility] [address] [place], [place] [address] Sodium [Moles/Vol] 139 136-144 mmol/L Normal 09-06-2019 [facility] ([id number]) Comment: Performed By: #### PRATIK TSH, FT4 #### [facility] [address] [place], [place] [address] Urea nitrogen [Mass/Vol] 13 7-21 mg/dL Normal 09-06 [facility] ([id number]) Comment: Performed By: #### BMP, TSH, FT4 #### [facility] [address] [place], [place] [address] cnptoutreach on CNPTOUTREACH Patient Outreach (FAMPST) Normal 0 09-04-2019 [place] MARIETTA Fields ([id number]) 1945 [facility] Date Time Provider Department ([id number]) 09/04/19 MARIKA ALCARAZ FAMPST During your visit today, we recorded the following informati on about you: Allergies As of Date: 09/04/2019 Noted Allergy Reaction CODEINE 04/30/2005 8 - GI Upset SULFA (SULFONAMIDE ANTIBIOTICS) 11/04/2004 2 - Rash Comments: UNSURE OF REACTION Date Reviewed: 06/20/2019 Reviewed by: Mela Liu LPN - Fully Assessed 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] Medication management [Z79.899] Order(s):HGB A1C [TGLNH4A] Order #: [id number] FUTURE CBC [SQCBC] Order #: [id number] FUTURE Prescriptions as of 09/04/2019 Sig: X LISINOPRIL 2.5 MG TABLET Take 1 tablet by mouth twice * TRIAMTERENE 37.5 MG-HYDROCHLO* Take 1 tablet by mouth once d * LEVOTHYROXINE 137 MCG TABLET 1.5 pills on Sundays, 1 pill * Patient taking differently: Take 137 mcg by mouth once da* CONJUGATED ESTROGENS 0.625 MG* Use small amount at vaginal o * MULTIVITAMIN CAPSULE Take 1 capsule by mouth once * MAGNESIUM 200 MG ( MAGNESIU* Take 1 tablet by mouth once d * ASPIRIN 81 MG CHEWABLE TABLET Take 81 mg by mouth as needed* CHOLECALCIFEROL (VITAMIN D3) * Take 2,000 Units by mouth onc * COENZYME Q10 100 MG CAPSULE Take 100 mg by mouth once zuleika* FISH OIL 500 MG CAPSULE Take one(1) capsule daily. Problem List As Of Date 09/04/2019 Noted Resolved ASA CLASS III [1003] 11/04/2004 FEMALE STRESS INCONTINENCE [N39.3] 11/04/2004 03/03/2009 UTERVAGINAL PROLAPSE NOS [N81.4] 11/04/2004 03/03/2009 TOX UNINOD GOIT NO NOREEN [E05.10] 04/30/2005 09/09/2006 Thyroid cancer [C73] 07/16/2005 More... Essential hypertension with goal blood pressure* JOINT PAIN-SHLDER [M25.519] 05/16/2007 ROTATOR CUFF SYND NOS [M71.9, M67.919] 05/18/2007 DYSMETABOLIC SYNDROME X [E88.81] 08/24/2007 BENIGN NEOPLASM LG BOWEL [D12.6] 12/19/2007 RECTOCELE [N81.6] 02/29/2008 03/03/2009 SYMPTOMATIC FEMALE CLIMACTERIC STATE [N95.1] 03/03/2009 RECTOCELE [N81.6] 03/03/2009 VAGINAL ENTEROCELE [N81.5] 03/03/2009 Other nonspecific abnormal finding of lung fiel*10/12/2011 Cystocele, midline [N81.11] 11/03/2011 Indeterminate pulmonary nodules [R91.8] 12/18/2012 More... Hypothyroidism, postsurgical [E89.0] High serum thyroglobulin [R79.89] 12/20/2018 Elevated BP without diagnosis of hypertension [*12/20/2018 Meningioma (HCC) [D32.9] 03/02/2019 More... Encounter Status:Closed by ULISES, PRODUSER on 09/19/19 progress on 2019-06 PROGRESS HNO ID: [id number] Normal 06-20-2019 [facility] Author: Mela Liu LPN [place] ([id number]) Service: ? Author Type: ? Type: Progress Notes Filed: 06/20/2019 11:18 AM Note Text: Manual Readin/90 Pulse: 68 Repeat BP Check: 176/86 P80 #1 170/87 P79 #2 167/84 P80 #3 144/76 P77 #4 137/76 P76 #5 132//73 P77 #6 BP Jose Average: 150/79 Pulse: 78 Reason for blood pressure check - Last BP elevated Blood pressure was 140/82 at OV on 03/02/19. No medication sin nges were made at that time. Patient is: Taking medication as prescribed Yes Took medication today Yes If no, date medication last taken na Experiencing side effects No Pt is a former smoker, quit in 1999. Drinks 4-5 cups of coff ee daily. Denies chest pain, occs sob with exertion. Denies headaches or dizziness. Pt is alert AND oriented. Pt has been identified by name and birthdate: Yes Allergies reviewed: Yes Latex allergy: no. Medication - prescribed and OTC reviewed and updated: Yes Do you need any prescription refills prior to your next visi t: No Health Maintenance: Reviewed and not up to date and provider notified Pt advised he will be contacted by provider's office after r eview of blood pressure reading/readings with any further instructions. Mela Liu LPN cnnurse on [facility] Nurse Visit (FAMPWS) Normal [address] [place] [address] MARIETTA Fields ([id number]) 1945 [facility] Date Time Provider Department ([id number]) 06/20/19 11:00 AM [place] [facility] During your visit today, we recorded the following informati on about you: Pulse Blood pressure 78/minute 150/79 Mela Liu LPN 06/20/2019 11:18 AM Signed Manual Readin/90 Pulse: 68 Repeat BP Check: 176/86 P80 #1 170/87 P79 #2 167/84 P80 #3 144/76 P77 #4 137/76 P76 #5 132//73 P77 #6 BP Jose Average: 150/79 Pulse: 78 Reason for blood pressure check - Last BP elevated Blood pressure was 140/82 at OV on 03/02/19. No me dication changes were made at that time. Patient is: Taking medication as prescribed Yes Took medication today Yes If no, date medication last taken na Experiencing side effects No Pt is a former smoker, quit in 1999. Drinks 4-5 cups of coff ee daily. Denies chest pain, occs sob with exertion. Denies head aches or dizziness. Pt is alert AND oriented. Pt has been identified by name and birthdate: Yes Allergies reviewed: Yes Latex allergy: no. Medication - prescribed and OTC reviewed and updated: Yes Do you need any prescription refills prior to your next visi t: No Health Maintenance: Reviewed and not up to date and provider notified Pt advised he will be contacted by provider's office after r eview of blood pressure reading/readings with any further instructions. Mela Liu LPN Referring Provider: SELF [200] Allergies As of Date: 06/20/2019 Noted Allergy Reaction CODEINE 04/30/2005 8 - GI Upset SULFA (SULFONAMIDE ANTIBIOTICS) 11/04/2004 2 - Rash Comments: UNSURE OF REACTION Date Reviewed: 06/20/2019 Reviewed by: Mela Liu LPN - Fully Assessed Reason for Visit: Blood Pressure Check [195] Visit Diagnosis:Hypertension, essential [I10] Prescriptions as of 06/20/2019 Sig: TRIAMTERENE 37.5 MG-HYDROCHLO* Take 1 tablet by mouth once d * LEVOTHYROXINE 137 MCG TABLET 1.5 pills on Sundays, 1 pill * CONJUGATED ESTROGENS 0.625 MG* Use small amount at vaginal o * MULTIVITAMIN CAPSULE Take 1 capsule by mouth once * MAGNESIUM 200 MG ( MAGNESIU* Take 1 tablet by mouth once d * ASPIRIN 81 MG CHEWABLE TABLET Take 81 mg by mouth once arie* CHOLECALCIFEROL (VITAMIN D3) * Take 2,000 Units by mouth onc * COENZYME Q10 100 MG CAPSULE Take 100 mg by mouth once zuleika* FISH OIL 500 MG CAPSULE Take one(1) capsule daily. Problem List As Of Date 06/20/2019 Noted Resolved ASA CLASS III [1003] 11/04/2004 FEMALE STRESS INCONTINENCE [N39.3] 11/04/2004 03/03/2009 UTERVAGINAL PROLAPSE NOS [N81.4] 11/04/2004 03/03/2009 TOX UNINOD GOIT NO NOREEN [E05.10] 04/30/2005 09/09/2006 Thyroid cancer [C73] 07/16/2005 More... Essential hypertension with goal blood pressure* JOINT PAIN-SHLDER [M25.519] 05/16/2007 ROTATOR CUFF SYND NOS [M71.9, M67.919] 05/18/2007 DYSMETABOLIC SYNDROME X [E88.81] 08/24/2007 BENIGN NEOPLASM LG BOWEL [D12.6] 12/19/2007 RECTOCELE [N81.6] 02/29/2008 03/03/2009 SYMPTOMATIC FEMALE CLIMACTERIC STATE [N95.1] 03/03/2009 RECTOCELE [N81.6] 03/03/2009 VAGINAL ENTEROCELE [N81.5] 03/03/2009 Other nonspecific abnormal finding of lung fiel*10/12/2011 Cystocele, midline [N81.11] 11/03/2011 Indeterminate pulmonary nodules [R91.8] 12/18/2012 More... Hypothyroidism, postsurgical [E89.0] High serum thyroglobulin [R79.89] 12/20/2018 Elevated BP without diagnosis of hypertension [*12/20/2018 Meningioma (HCC) [D32.9] 03/02/2019 More... Encounter Status:Closed by MELA LIU LPN on 06/20/19 progress on 2019-06 PROGRESS HNO ID: [id number] Normal 06-19-2019 [facility] Author: Linda Dong ([id number]) Service: ? Author Type: Bullet Maker Type: Progress Notes Filed: 06/19/2019 10:22 AM Note Text: POPULATION HEALTH CIGAR MAKER QUICKNOTE Provider Action/FYI: 1st attempt - Satmext message sent. Patient identified by name and . Linda Dong CMA PROGRESS HNO ID: [id number] Normal 06-19-2019 [facility] Author: Linda Dong ([id number]) Service: ? Author Type: Bullet Maker Type: Progress Notes Filed: 06/19/2019 10:22 AM Note Text: POPULATION HEALTH NAVIGATION OUTREACH PAYOR LISTS Provider Action/FYI I spoke with [place] and she agreed to schedule a nurse visit f or a BP check. Appointment scheduled for 06/20/19. Declines flu vaccine (HM updated) Pt identified by name and . Yes Plan - schedule BP check with Nurse - address care gaps/HM - not due for labs at this time Last BP taken on 03/02/2019 BP 140/82 Patient Attributed by Payor: VIKASH Payer: [facility] Care Gap Addressed: Controlling BP Health Maintenance Due: DTAP,TDAP,TD(1 - Tdap) due on 1955 BP CONTROLLED (<130/80) due on 1962 INFLUENZA(1) due on 04/01/2019 - patient declines Outreach Outcome: Spoke with the patient Care Gap Actions: Appointment scheduled: Nurse visit BP check Pended or filed orders: N/A Message Sent to Practice: NO cnptoutreach on 201 04-11-19 CNPTOUTREACH Patient Outreach (INTMWS) Normal 1 08-19-2018 [place] [facility] MARIETTA TEMPLE ([id number]) 1945 [facility] Date Time Provider Department (53661) 06/19/19 LINDA DONG ([facility]) INTMWS During your visit today, we recorded the following informati on about you: Linda Dong CMA 06/19/2019 10:22 AM Signed POPULATION HEALTH NAVIGATION OUTREACH PAYOR LISTS Provider Action/ I spoke with Mari[place] and she agreed to schedule a nurse visit f or a BP check. Appointment scheduled for 06/20/19. Declines flu vaccine ( updated) Pt identified by name and . Yes Plan - schedule BP check with Nurse - address care gaps/HM - not due for labs at this time Last BP taken on 03/02/2019 BP 140/82 Patient Attributed by Payor: VIKASH Payer: [facility] ([facility]) Care Gap Addressed: Controlling BP Health Maintenance Due: DTAP,TDAP,TD(1 - Tdap) due on 1955 BP CONTROLLED (<130/80) due on 1962 INFLUENZA(1) due on 04/01/2019 - patient declines Outreach Outcome: Spoke with the patient Care Gap Actions: Appointment scheduled: Nurse visit BP check Pended or filed orders: N/A Message Sent to Practice: NO Linda Dong CMA 06/19/2019 10:22 AM Signed POPULATION [facility] CIGAR MAKER ANDRÉS Provider Action/FYI: 1st attempt - Satmext message sent. Patient identified by name and . Linda Dong CMA Allergies As of Date: 06/19/2019 Noted Allergy Reaction CODEINE 04/30/2005 8 - GI Upset SULFA (SULFONAMIDE ANTIBIOTICS) 11/04/2004 2 - Rash Comments: UNSURE OF REACTION Date Reviewed: 03/02/2019 Reviewed by: Holly Luciano LPN - Fully Assessed Reason for Visit: PHMA/Care Gap Outreach [3605] Cmt: HTN ACO Prescriptions as of 06/19/2019 Sig: TRIAMTERENE 37.5 MG-HYDROCHLO* Take 1 tablet by mouth once d * LEVOTHYROXINE 137 MCG TABLET 1.5 pills on Sundays, 1 pill * CONJUGATED ESTROGENS 0.625 MG* Use small amount at vaginal o * MULTIVITAMIN CAPSULE Take 1 capsule by mouth once * MAGNESIUM 200 MG ( MAGNESIU* Take 1 tablet by mouth once d * ASPIRIN 81 MG CHEWABLE TABLET Take 81 mg by mouth once arie* CHOLECALCIFEROL (VITAMIN D3) * Take 2,000 Units by mouth onc * COENZYME Q10 100 MG CAPSULE Take 100 mg by mouth once zuleika* FISH OIL 500 MG CAPSULE Take one(1) capsule daily. Problem List As Of Date 06/19/2019 Noted Resolved ASA CLASS III [1003] 11/04/2004 FEMALE STRESS INCONTINENCE [N39.3] 11/04/2004 03/03/2009 UTERVAGINAL PROLAPSE NOS [N81.4] 11/04/2004 03/03/2009 TOX UNINOD GOIT NO NOREEN [E05.10] 04/30/2005 09/09/2006 Thyroid cancer [C73] 07/16/2005 More... Essential hypertension with goal blood pressure* JOINT PAIN-SHLDER [M25.519] 05/16/2007 ROTATOR CUFF SYND NOS [M71.9, M67.919] 05/18/2007 DYSMETABOLIC SYNDROME X [E88.81] 08/24/2007 BENIGN NEOPLASM LG BOWEL [D12.6] 12/19/2007 RECTOCELE [N81.6] 02/29/2008 03/03/2009 SYMPTOMATIC FEMALE CLIMACTERIC STATE [N95.1] 03/03/2009 RECTOCELE [N81.6] 03/03/2009 VAGINAL ENTEROCELE [N81.5] 03/03/2009 Other nonspecific abnormal finding of lung fiel*10/12/2011 Cystocele, midline [N81.11] 11/03/2011 Indeterminate pulmonary nodules [R91.8] 12/18/2012 More... Hypothyroidism, postsurgical [E89.0] High serum thyroglobulin [R79.89] 12/20/2018 Elevated BP without diagnosis of hypertension [*12/20/2018 Meningioma (HCC) [D32.9] 03/02/2019 More... Encounter Status:Closed by LINDA DONG CMA on 06/19/19 [facility] screening on 19-03-13 [facility] SCREENING * * *Final Report* * * Normal [facility] DATE OF EXAM: Mar 13 2019 9:20AM Jerez ([id number]) [facility] 0581 - [facility] SCREENING / PROCEDURE REASON: Encounter for screening mammogram for shu gnant neoplasm of breast * * * * Physician Interpretation * * * * RESULT: #[id number] - [facility] SCREENING BILATERAL DIGITAL SCREENING MAMMOGRAM WITH CAD: 03/13/2019 HISTORY: Encounter For Screening Mammogram For Malignant Noé plasm Of Breast /Screening Mammogram - patient reports NO breast symp toms /Priors available for comparison. RESULT: TECHNIQUE: The study was acquired using full field digital t echnology and interpreted from soft copy. Current study was also evaluated with a Computer Aided Detec tion (CAD). Comparison is made to exams dated: 02/24/2018 mammogram, 2015 mammogram - [facility], 11/19/2013 mammogr am - [facility] [place], and 09/09/2011 mamm[facility] - [facility]. There are scattered fibroglandular elements in both breasts. Post operative changes bilaterally consistent with breast re duction surgery. There are benign appearing calcifications in the left breast . No significant masses, calcifications, or other findings are seen in either breast. There has been no significant interval change. IMPRESSION: BENIGN FINDING There is no mammographic evidence of malignancy. A 1 year sc reening mammogram is recommended. Gisselle tse/vijay:03/13/2019 12:14:27 Bleacher Lard(s): RT Memo(R)(M), [facility] letter sent: Normal over 40 Mammogram BI-RADS: 2 Benign finding Multiple national specialty organizations have released [facility] [facility] cancer screening guidelines for women at average risk for developin g breast cancer - guidelines that are based on both evidence and opin ion, yet differ on when to start and how often to screen for breast c ancer. With representation from Breast Imaging, Internal Medicine, Women 's Health, Family Medicine, and Medical/Surgical Oncology, the [facility] has carefully reviewed the data and reached the following consen alejandro: 1) All women should engage in shared decision-making with eir providers to decide when to start and how often to screen; 2) All women should have the opportunity to start screening mammography at age 40; 3) For women ages 45-55, we recommend annual screening mammo grams; 4) For women ages 55 and over, we support both the transitio n from an annual to a biennial interval if this aligns more with patie nt's values and preferences, or continuation with annual screening; 5) All women should discuss with their providers when to sto p screening mammograms. Dietetics Director: Vijay Transcribe Date/Time: Mar 13 2019 9:04A Dictated by: GISSELLE MELTON MD This examination was interpreted and the report reviewed and electronically signed by: GISSELLE MELTON MD on Mar 13 2019 12:14PM EST [id number] cnco on 2019-03-13 CNCO HNO ID: [id number] Normal 03-13-2019 [facility] Author: Mammography Coordinator ([id number]) Service: ? Author Type: Physician Type: Letter Filed: 03/14/2019 11:32 PM Note Text: March 13, 2019 PID: [id number] Marietta Temple [address] [place] [id number] Dear Ms. Temple, We are pleased to inform you that the results of your recent breast imaging exam on 03/13/2019 are normal. Early detection of cancer is very important. We also underst and recommendations regarding breast cancer screening are contro versial. Please discuss with your primary care provider which strateg y is best for you and whether a mammogram is right for you. Your imaging studies and report will be kept on file at [facility] as part of your permanent medical record and are available f or your continuing care. Thank you for allowing us to help in meeting your health car e needs. Sincerely, Dr. Melton Interpreting Radiologist [facility] (Normal over 40) cbc on 2018-11-08 Erythrocyte distribution 14.9 11.5-14.5 % High 11-08 [facility] width Ratio (RBC) (O H) ([id number]) Comment: Performed By: #### BMP, GFR #### [place] [address] #### CBC, ADIFF, ANEU #### [address] [address] Hematocrit Volume 40.1 37.0-47.0 % Normal 11-08-2018 [facility] Fraction (Bld) ([place]) ([address]) Comment: Performed By: #### BMP, GFR #### [place] [address] #### CBC, ADIFF, ANEU #### [address] [address] Hemoglobin mass conc 12.9 12.0-16.0 G/dL Normal 9 [facility] (d) [facility] ([place]) ([address]) Comment: Performed By: #### BMP, GFR #### [place] [address] #### CBC, ADIFF, ANEU #### [address] [address] MCH Entitic mass (RBC) 26.9 27.0-31.2 pg Low 019 [facility] ([place]) (0000 0) Comment: Performed By: #### BMP, GFR #### [place] [address] #### CBC, ADIFF, ANEU #### [address] [address] MCHC mass conc (RBC) 32.2 33.0-37.0 G/dL Low 9 [facility] ([place]) (0000 0) Comment: Performed By: #### BMP, GFR #### [place] [address] #### CBC, ADIFF, ANEU #### [address] [address] MCV Entitic volume 83.6 80.0-94.0 fL Normal 11-08-2018 [facility] (RBC) ([place]) (0000 0) Comment: Performed By: #### BMP, GFR #### [place] [address] #### CBC, ADIFF, ANEU #### [address] [address] Platelet mean volume 8.5 7.4-10.4 fL Normal 9 [facility] Entitic volume (Bld) ([place]) ([address]27) Comment: Performed By: #### BMP, GFR #### [place] [address] #### CBC, ADIFF, ANEU #### [address] [address] Platelets #/vol (Bld) 266 130-400 10 3/mcL Normal 11-09-19 19 [facility] ([place]) ([address]) Comment: Performed By: #### BMP, GFR #### [place] [address] #### CBC, ADIFF, ANEU #### [address] [address] RBC #/vol (Bld) 4.80 4.20-5.40 10 6/mcL Normal 11-08-2018 [facility] ([place]) (0000 0) Comment: Performed By: #### BMP, GFR #### [place] [address] #### CBC, ADIFF, ANEU #### [address] [address] WBC #/vol (Bld) 16.40 4.60-10.80 10 3/mcL High 11-08-2018 [facility] ([place]) (0000 0) Comment: Performed By: #### BMP, GFR #### [place] [address] #### CBC, ADIFF, ANEU #### [address] [address] bmp on 2018-11-08 Calcium mass conc 8.8 8.4-10.2 mg/dL Normal 11-08-2018 [facility] ([place]) ([address]) Comment: Performed By: #### BMP, GFR #### [place] [address] #### CBC, ADIFF, ANEU #### [address] [address] Chloride molar conc 103 98-107 mmol/L Normal 11-08-2018 [facility] ([place]) (0000 0) Comment: Performed By: #### BMP, GFR #### [place] [address] #### CBC, ADIFF, ANEU #### [address] [address] CO2 molar conc 25 23-31 mmol/L Normal 11-08-2018 [facility] ([place]) ([address]) Comment: Performed By: #### BMP, GFR #### [place] [address] #### CBC, ADIFF, ANEU #### [address] [address] Creatinine mass conc 0.79 0.55-1.02 mg/dL Normal 9 [facility] ([place]) (0000 0) Comment: Performed By: #### BMP, GFR #### [place] [address] #### CBC, ADIFF, ANEU #### [place] [id number] Electrolyte Balance 13.0 mEq/L Normal 11-08-2018 [facility] ([place]) ([address]) Comment: Performed By: #### BMP, GFR #### [place] [address] #### CBC, ADIFF, ANEU #### [address] [address] Glucose mass conc 148 83-110 mg/dL High 11-08-2018 [facility] ([place]) ([address]) Comment: Performed By: #### BMP, GFR #### [place] [address] #### CBC, ADIFF, ANEU #### [address] [address] Potassium molar conc 4.1 3.5-5.1 mmol/L Normal 9 [facility] ([place]) (0000 0) Comment: Performed By: #### BMP, GFR #### [place] [address] #### CBC, ADIFF, ANEU #### [address] [address] Sodium molar conc 141 136-145 mmol/L Normal 11-08-2018 [facility] ([place]) ([address]) Comment: Performed By: #### BMP, GFR #### [place] [address] #### CBC, ADIFF, ANEU #### [address] [address] Urea nitrogen mass conc 11 7-18 mg/dL Normal 2018 [facility] ([place]) (0000 0) Comment: Performed By: #### BMP, GFR #### [place] [address] #### CBC, ADIFF, ANEU #### [address] [address] Urea nitrogen/Creatinine mass 14 7-27 ratio Normal 11-08-2018 [facility] ([place]) ([address]) Comment: Performed By: #### BMP, GFR #### [address] [address] #### CBC, ADIFF, ANEU #### [address] [address] .neuabs on Neutrophils #/vol (Bld) 13.70 2.85-6.16 10 3/mcL High 2018 [facility] ([place]) ([address]) Comment: Performed By: #### CBC, ADIF F, ANEU #### Marily [address] [address] #### BMP, GFR #### [address] [address] .gfr on 2018-11-08 GFR Non- 71 ml/min/1.73sqm Normal 11-08-2018 [facility] ([place]) ([address]) Comment: Result Comment: GFR Population mean for Afri can Palestinian, Non- Americans Ages 20-29 = 116 mL/min/1.73 sq.m. Ages 30-39 = 107 mL/min/1.73 sq.m. Ages 40-49 = 99 mL/min/1.73 sq.m. Ages 50-59 = 93 mL/min/1.73 sq.m. Ages 60-69 = 85 mL/min/1.73 sq.m. Ages 70+ = 75 mL/min/1.73 sq .m. Chronic Kidney Disease: Less than 60 mL/min/1.73 square meters End Stage Renal Disease: Les s than 15 mL/min/1.73 square meters Performed By: #### BMP, GFR #### [address] [address] #### CBC, ADIFF, ANEU #### [address] [address] GFR 86 ml/min/1.73sqm Normal 10-30 [facility] ([place]) (0000 0) Comment: Result Comment: GFR Population mean for Afri can Palestinian, Non- Americans Ages 20-29 = 116 mL/min/1.73 sq.m. Ages 30-39 = 107 mL/min/1.73 sq.m. Ages 40-49 = 99 mL/min/1.73 sq.m. Ages 50-59 = 93 mL/min/1.73 sq.m. Ages 60-69 = 85 mL/min/1.73 sq.m. Ages 70+ = 75 mL/min/1.73 sq .m. Chronic Kidney Disease: Less than 60 mL/min/1.73 square meters End Stage Renal Disease: Les s than 15 mL/min/1.73 square meters Performed By: #### BMP, GFR #### [place] [address] #### CBC, ADIFF, ANEU #### [address] [address] .auto diff on 11-08 Ammonia mass conc (P) 1.30 0.15-1.00 10 3/mcL High 11-09-19 19 [facility] ([place]) ([id number]) Comment: Performed By: #### CBC, ADIF F, ANEU #### [place] [address] #### BMP, GFR #### [place] [address] Basophils #/vol (Bld) 0.00 0.00-0.19 10 3/mcL Normal 11-09-19 19 [facility] ([place]) ([id number]) Comment: Performed By: #### CBC, ADIF F, ANEU #### [place] [address] #### BMP, GFR #### [place] [address] Basophils/100 WBC (Bld) 0.2 0.0-2.5 % Normal 2018 [facility] ([place]) (0000 0) Comment: Performed By: #### CBC, ADIF F, ANEU #### [place] [address] #### BMP, GFR #### [place] [address] Eosinophils #/vol 0.00 0.00-0.40 10 3/mcL Normal 11-08-2018 [facility] ([facility] ([place]) ([id number]) Comment: Performed By: #### CBC, ADIF F, ANEU #### [address] [address] #### BMP, GFR #### [address] [address] Eosinophils/100 WBC (Bld) 0.0 0.0-7.0 % Normal 10-30 [facility] ([place]) (0000 0) Comment: Performed By: #### CBC, ADIF F, ANEU #### [address] [address] #### BMP, GFR #### [address] [address] Lymphocytes #/vol 1.40 0.77-3.85 10 3/mcL Normal 11-08-[address] [facility] ([facility]) [facility] ([place]) ([id number]) Comment: Performed By: #### CBC, ADIF F, ANEU #### [address] [address] #### BMP, GFR #### [address] [address] Lymphocytes/100 WBC (Bld) 8.5 10.0-50.0 % Low 10-30 [facility] ([place]) (0000 0) Comment: Performed By: #### CBC, ADIF F, ANEU #### [address] [address] #### BMP, GFR #### [address] [address] Monocytes/100 WBC (Bld) 7.6 1.7-13.0 % Normal 2018 [facility] ([place] (0000 0) Comment: Performed By: #### CBC, ADIF F, ANEU #### [address] [address] #### BMP, GFR #### [address] [address] Neutrophils/100 WBC (Bld) 83.7 37.0-80.0 % High 10-30 [facility] ([place]) (0000 0) Comment: Performed By: #### CBC, ADIF F, ANEU #### [address] [address] #### BMP, GFR #### [address] [address] xr knee 1 or 2 views left on 2018-11-07 XR KNEE 1 OR 2 ORIGINAL Normal 11-07-2018 [facility] LEFT Portable LEFT knee AP and crosstable lateral 2 views [facility] ([place]) ([id number]) CLINICAL STATEMENT: Status P ost Arthroplasty , knee replacement surgery, check prosthesis alignment COMPARISON: CT 10/19/2018 FINDINGS: There is knee replacement willoughby rgery. The total knee prosthesis show satisfactory alignment. Expected postoperative changes in the soft tissues. IMPRESSION: Knee replacement surgery with satisfactory prosthesis alignment. Interpreted By: Augusto Gray MD Preliminary Report By: Augusto Gray MD Electronically Signed By: Augusto Gray MD Dictated Date: 11/07/2018 12:43:37 PM Prelim Date: 11/07/2018 12:43:37 PM Sign Date: 11/07/2018 12:44:20 PM cbc on 2018-10-23 Erythrocyte distribution 14.7 11.5-14.5 % High 10-23 [facility] width Ratio (RBC) ([place]) ([id number]) Comment: Performed By: #### CBC, ADIF F, ANEU #### [address] [address] #### BMP, GFR #### [address] [address] Hematocrit Volume 42.1 37.0-47.0 % Normal 10-23-2018 A [facility] (Bld) ([place]) ([id number]) Comment: Performed By: #### CBC, ADIF F, ANEU #### [address] [address] #### BMP, GFR #### [address] [address] Hemoglobin mass conc 13.8 12.0-16.0 G/dL Normal 9 [facility] (d) [facility] ([place]) ([id number]) Comment: Performed By: #### CBC, ADIF F, ANEU #### [place] [address] #### BMP, GFR #### [address] [address] MCH Entitic mass (RBC) 27.2 27.0-31.2 pg Normal 019 [facility] ([place]) (0000 0) Comment: Performed By: #### CBC, ADIF F, ANEU #### [place] [address] #### BMP, GFR #### [place] [address] MCHC mass conc (RBC) 32.8 33.0-37.0 G/dL Low 9 [facility] ([place]) (0000 0) Comment: Performed By: #### CBC, ADIF F, ANEU #### [place] [address] #### BMP, GFR #### [address] [address] MCV Entitic volume 83.1 80.0-94.0 fL Normal 10-23-2018 [facility] (RBC) ([place]) (0000 0) Comment: Performed By: #### CBC, ADIF F, ANEU #### [place] [address] #### BMP, GFR #### [address] [address] Platelet mean volume 9.0 7.4-10.4 fL Normal 9 [facility] Entitic volume (Bld) ([place]) ([address]18) Comment: Performed By: #### CBC, ADIF F, ANEU #### [place] [address] #### BMP, GFR #### [address] [address] Platelets #/vol (Bld) 289 130-400 10 3/mcL Normal 10-24-19 19 [facility] ([place] ([address]291) Comment: Performed By: #### CBC, ADIF F, ANEU #### [address] [address] #### BMP, GFR #### [address] [address] RBC #/vol (Bld) 5.07 4.20-5.40 10 6/mcL Normal 10-23-2018 [facility] ([place]) (0000 0) Comment: Performed By: #### CBC, ADIF F, ANEU #### [place] [address] #### BMP, GFR #### [address] [address] WBC #/vol (Bld) 10.60 4.60-10.80 10 3/mcL Normal 10-23-2018 [facility] ([place]) (0000 0) Comment: Performed By: #### CBC, ADIF F, ANEU #### [address] [address] #### BMP, GFR #### [place] [address] bmp on 2018-10-23 Calcium mass conc 9.0 8.4-10.2 mg/dL Normal 10-23-2018 A [facility] ([place]) (36802) Comment: Performed By: #### CBC, ADIF F, ANEU #### [place] [address] #### BMP, GFR #### [address] [address] Chloride molar conc 103 98-107 mmol/L Normal 10-23-2018 [facility] ([place] (0000 0) Comment: Performed By: #### CBC, ADIF F, ANEU #### [address] [address] #### BMP, GFR #### [place] [address] CO2 molar conc 31 23-31 mmol/L Normal 10-23-2018 [facility] ([place]) (16498) Comment: Performed By: #### CBC, ADIF F, ANEU #### [address] [address] #### BMP, GFR #### [address] [address] Creatinine mass conc 0.66 0.55-1.02 mg/dL Normal 9 [facility] ([place] (0000 0) Comment: Performed By: #### CBC, ADIF F, ANEU #### [address] [address] #### BMP, GFR #### [place] [address] Electrolyte Balance 8.0 mEq/L Normal 10-23-2018 [facility] ([place] (47699) Comment: Performed By: #### CBC, ADIF F, ANEU #### [place] [address] #### BMP, GFR #### [address] [address] Glucose mass conc 81 83-110 mg/dL Low 10-23-2018 A [facility] ([place]) (92228) Comment: Performed By: #### CBC, ADIF F, ANEU #### [address] [address] #### BMP, GFR #### [place] [address] Potassium molar conc 3.8 3.5-5.1 mmol/L Normal 9 [facility] ([place] (0000 0) Comment: Performed By: #### CBC, ADIF F, ANEU #### [place] [address] #### BMP, GFR #### [address] [address] Sodium molar conc 142 136-145 mmol/L Normal 10-23-2018 A [facility] ([place]) (28906) Comment: Performed By: #### CBC, ADIF F, ANEU #### [address] [address] #### BMP, GFR #### [address] [address] Urea nitrogen mass conc 14 7-18 mg/dL Normal 2018 [facility] ([place] (0000 0) Comment: Performed By: #### CBC, ADIF F, ANEU #### [place] [address] #### BMP, GFR #### [place] [address] Urea nitrogen/Creatinine mass 21 7-27 ratio Normal 10-23-2018 [facility] ([place]) ([address]010) Comment: Performed By: #### CBC, ADIF F, ANEU #### [address] [address] #### BMP, GFR #### [place] [id number] .neuabs on Neutrophils #/vol (Bld) 7.30 2.85-6.16 10 3/mcL High 2018 [facility] ([place] ([address]) Comment: Performed By: #### CBC, ADIF F, ANEU #### [address] [address] #### BMP, GFR #### [address] [address] .gfr on 2018-10-23 GFR 106 ml/min/1.73sqm Normal - [facility] ([place]) (0000 0) Comment: Result Comment: GFR Population mean for Afri can Palestinian, Non- Americans Ages 20-29 = 116 mL/min/1.73 sq.m. Ages 30-39 = 107 mL/min/1.73 sq.m. Ages 40-49 = 99 mL/min/1.73 sq.m. Ages 50-59 = 93 mL/min/1.73 sq.m. Ages 60-69 = 85 mL/min/1.73 sq.m. Ages 70+ = 75 mL/min/1.73 sq .m. Chronic Kidney Disease: Less than 60 mL/min/1.73 square meters End Stage Renal Disease: Les s than 15 mL/min/1.73 square meters Performed By: #### CBC, ADIF F, ANEU #### [address] [address] #### BMP, GFR #### [address] [address] GFR Non- 88 ml/min/1.73sqm Normal 10-23-2018 [facility] ([place] (86147) Comment: Result Comment: GFR Population mean for Afri can Palestinian, Non- Americans Ages 20-29 = 116 mL/min/1.73 sq.m. Ages 30-39 = 107 mL/min/1.73 sq.m. Ages 40-49 = 99 mL/min/1.73 sq.m. Ages 50-59 = 93 mL/min/1.73 sq.m. Ages 60-69 = 85 mL/min/1.73 sq.m. Ages 70+ = 75 mL/min/1.73 sq .m. Chronic Kidney Disease: Less than 60 mL/min/1.73 square meters End Stage Renal Disease: Les s than 15 mL/min/1.73 square meters Performed By: #### CBC, ADIF F, ANEU #### [address] [address] #### BMP, GFR #### [address] [address] .auto diff on 10-23 Ammonia mass conc 0.70 0.15-1.00 10 3/mcL Normal 10-23-[address] [facility] () [facility] ([place]) ([address]842) Comment: Performed By: #### CBC, ADIF F, ANEU #### [address] [address] #### BMP, GFR #### [address] [address] Basophils #/vol (Bld) 0.00 0.00-0.19 10 3/mcL Normal 10-24-19 19 [facility] ([place]) (41225) Comment: Performed By: #### CBC, ADIF F, ANEU #### [place] [address] #### BMP, GFR #### [address] [address] Basophils/100 WBC (Bld) 0.4 0.0-2.5 % Normal 2018 [facility] ([place] (0000 0) Comment: Performed By: #### CBC, ADIF F, ANEU #### [place] [address] #### BMP, GFR #### [address] [address] Eosinophils #/vol 0.30 0.00-0.40 10 3/mcL Normal 10-23-2018 [facility] ([facility]) [facility] ([place] ([address]804) Comment: Performed By: #### CBC, ADIF F, ANEU #### [place] [address] #### BMP, GFR #### [address] [address] Eosinophils/100 WBC (Bld) 2.6 0.0-7.0 % Normal 09-30 [facility] ([place] (0000 0) Comment: Performed By: #### CBC, ADIF F, ANEU #### [place] [address] #### BMP, GFR #### [address] [address] Lymphocytes #/vol 2.20 0.77-3.85 10 3/mcL Normal 10-23-[address] [facility] ([facility]) [facility] ([place]) ([address]) Comment: Performed By: #### CBC, ADIF F, ANEU #### [place] [address] #### BMP, GFR #### [address] [address] Lymphocytes/100 WBC (Bld) 21.1 10.0-50.0 % Normal 09-30 [facility] ([place]) ([address]20) Comment: Performed By: #### CBC, ADIF F, ANEU #### [address] [address] #### BMP, GFR #### [address] [address] Monocytes/100 WBC (Bld) 7.0 1.7-13.0 % Normal 2018 [facility] ([place] (0000 0) Comment: Performed By: #### CBC, ADIF F, ANEU #### [address] [address] #### BMP, GFR #### [facility] [address] [place] [address] Neutrophils/100 WBC (Bld) 68.9 37.0-80.0 % Normal 09-30 [facility] ([place] (14093) Comment: Performed By: #### CBC, ADIF F, ANEU #### [address] [address] #### BMP, GFR #### [address] [address] [address] knee w/o contrast left on 2018-10-20 CT KNEE W/O ORIGINAL Normal 10-20-2018 [facility] CONTRAST LEFT CT KNEE W/O CONTRAST LEFT [facility] ([place] ([id number]) This exam was performed acco rding to our departmental dose optimization program, and includes the following measures where applicable: automated exposure control, adjustment of the mAs and/or kVp accord ing to patient size and/or exam, and an iterative reconstr uction algorithm. CLINICAL STATEMENT: UNILATERAL PRIMARY OSTEOARTHRITIS, chron ic knee pain COMPARISON: None FINDINGS: Tricompartmental o steophyte formation is demonstrated. A rather large osteophyte arises from the medial femoral condyle posteriorly. Medial tibiofemoral and patellofemoral joint compartments a re most severely narrowed. T here is no fracture. A minimal effusion is present. Axial images were acquired a t the LEFT hip and ankle, demonstrating no acute abnormality. IMPRESSION: Advanced osteoarthritis LEFT knee. Interpreted By: Tarsha Alcantara MD Preliminary Report By: Tarsha Alcantara MD Electronically Signed By: Tarsha Alcantara MD Dictated Date: 10/20/2018 10:22:21 AM Prelim Date: 10/20/2018 10:22:21 AM Sign Date: 10/20/2018 10:29:00 AM No panel information on 2008-01-16 CONVERTED FINAL A) RIGHT BREAST, REDUCTION - NEGATIVE FOR MALIGNANCY . 01-16-2008 [facility] DIAGNOSIS B) LEFT BREAST, REDUCTION - NEGATIVE FOR MALIGNANCY. ([id number]) CONVERTED ORDERING Ordering Provider: [facility] PROVIDER SUNNY HICKEY ([id number]) TSH Cody PÉREZ M.D., PATHOLOGIST 01-16-2008 [facility] (Electronic signature on file) ([id number]) Final Signed Out: 01/16/2008 14:15 Encounters Date Type Reason Provider Location 11-07-2018 - Patient encounter BERNIE Vargas ty:B 11-08-2018 procedure MARIKA TALAMPAS [facility] 10-16-2018 Patient encounter BERNIE Vargas ty:B procedure MARIKA TALAMPAS 10-13-2018 Patient encounter BERNIE Vargas ty:B procedure MARIKA TALAMPAS 01-12-2008 - Patient encounter Sunny Hickey [facility] 01-12-2008 procedure 01-12-2008 Results Only Sunny Hickey [facility] Procedures Procedure Name Date Provider Location Colonoscopy 11-08-2017 [facility] ([id number]) CONVERTED SURGICAL PATHOLOGY 01-12-2008 Sunny Hickey [facility] ([id number]) Plan of Treatment Plan Description Date Location LIPID SCREEN LIPID SCREEN 03-17-2023 [facility] ([id number]) COLONOSCOPY COLONOSCOPY 11-08-2022 [facility] ([id number]) DIABETES SCREEN DIABETES SCREEN 09-06-2022 [facility] ([id number]) ANNUAL PCP TEAM CHRONIC ANNUAL PCP TEAM CHRONIC 09-18-2020 [facility] DISEASE VISIT DISEASE VISIT ([id number]) INFLUENZA (#1) INFLUENZA (#1) 2020 [facility] ([id number]) ADVANCE DIRECTIVE ADVANCE DIRECTIVE [address] [facility] inic DISCUSSION DISCUSSION (54932) SHINGRIX VACCINE (1 of 2) SHINGRIX VACCINE (1 of 2) 1994 [facility] ([id number]) DTAP,TDAP,TD (1 - Tdap) DTAP,TDAP,TD (1 - Tdap) 1963 [facility] ([id number]) BP CONTROLLED (<130/80) BP CONTROLLED (<130/80) 1962 [facility] ([id number]) no information [facility] ([id number]) Payers Payer Name Policy Number Location KEVIN [id number] [facility] (54 668) [employer] [id number] [facility] ([place] ([id number]) MEDICARE PART B [employer] [id number] [facility] ([place] ([address]198) [id number] [facility] [place] ([address]011) The following information is from the original human readable contentNo Payer Records Found Social History Type Social History Description Date Locat ion Tobacco smoking status Former smoker 12-19-2007 [facility] ([id number]) NHIS History of tobacco use Current smoker 09-30-1999 [facility] ([id number]) Alcohol intake Current drinker of alcohol 12-19-2007 [facility] ([facility]) (finding) Sex Assigned At Not on file [facility] ([id number]) The following information is from the original human readable contentNo Social History Records FoundNo Social History Records FoundNo Social History Records Found Summary Purpose Family History No Family History Records FoundNo Family History Records Found Advance Directives Documents on File Type Date Recorded Patient Tuyere Fitter Explanati on Advance Directive(s) 10/24/2017 4:02 PM Advance Directive(s) 11/08/2017 8:51 AM History of Past Illness Problem Noted Date Resolved Date RECTOCELE 02/29/2008 03/03/2009 TOX UNINOD GOIT NO NOREEN 04/30/2005 09/09/2006 FEMALE STRESS INCONTINENCE 11/04/2004 03/03/2009 UTERVAGINAL PROLAPSE NOS 11/04/2004 03/03/2009 Additional Source Comments FOR RECORDS PERTAINING TO PATIENTS WHO ARE OR HAVE BEEN ENROLLED IN A CHEMICAL DEPENDENCY/SUBSTANCE ABUSE PROGRAM, SOME INFORMATION MAY BE OMITTED. This clinical summary was aggregated from multiple sources. Caution should be exercised in using it in the provision of clinical care. This summary normalizes information from multiple sources, and as a consequence, information in this document may materially changethe coding, format and clinical context of patient data. In addition, data may be omittedin some cases. CLINICAL DECISIONS SHOULD BE BASED ON THE PRIMARY CLINICAL RECORDS. [facility] provides no warranty or guarantee of the accuracy or completeness of information in this document. UNRECOGNIZED CONTENT PROVIDED BELOW FOR UNRECOGNIZED SECTION INFORMATION SOURCE DATE CREATED AUTHOR AUTHOR'S ORGANIZATIO N 11/09/2018 [facility] ([place]) DATE CREATED AUTHOR AUTHOR'S ORGANIZATIO N 03/11/2020 [facility] UNRECOGNIZED CONTENT PROVIDED BELOW FOR UNRECOGNIZED SECTION Source Comments In the event this information is protected by the Federal Confidentiality of Alcohol and Drug Abuse Patient Records regulations: The Federal rules restrict any use of the information to criminally investigate or prosecute any alcohol or drug abuse patient.[facility]
== END | disposition home or self-care (01) ==
LOC: LAB 15:32
PROVIDERS: PCP Internal Medicine; Visit Provider Internal Medicine Endocrinology, Diabetes & Metabolism
DX: E03.9 Hypothyroidism, unspecified (principal); C73 Malignant neoplasm of thyroid gland; R27.0 Ataxia, unspecified
CPT/HCPCS: 36415; 84432; 84439; 84443; 84481; 86800

== ENCOUNTER 2020-12-27 02:57 | Emergency (ER) | payer MEDICARE, OTHER, SELFPAY ==
[2019-10-26 13:15] VITALS: BMI 32.0
[2020-12-27 03:00] VITALS: BP 166/113; PULSE 84; RESP 18; TEMP 36.6; O2SAT 98; BMI 33.0
--- NOTE | 2020-12-27 03:11 | EKG12_ITS ---
Test Reason : PALPS Blood Pressure : / mmHG Vent. Rate : 074 BPM Atrial Rate : 074 BPM P-R Int : 180 ms QRS Dur : 088 ms QT Int : 402 ms P-R-T Axes : 061 -34 035 degrees QTc Int : 446 ms Sinus rhythm with Premature supraventricular complexes Left axis deviation Abnormal ECG Confirmed by HUNG MEYERS, GILA ([id number]), editorial cartoonist JOSE MCGREGOR ([id number]) on 12/30/2020 1:45:26 PM Referred By: ADORE Confirmed By:GILA PERSAUD MD
--- NOTE | 2020-12-27 03:12 | EX.ED.DYSGE1 ---
HPI History of Present Illness Chief Complaint: Palpitations Informant: patient and spouse/S.O. Onset/Context/Timing Onset: Hours Current Severity: Mild Maximum Severity: Moderate Narrative Narrative: Patient states she was getting ready go to bed tonight just did not feel quite right. She checked her vital signs and her blood pressure was noted to be elevated at 230/104 and her heartbeat was irregular. She denies chest pain or shortness of breath. She does not feel lightheaded or dizzy. She denies any recent changes to her blood pressure medications. She typically takes her blood pressure medications in the morning. She states a few days ago her systolic blood pressure was 111 when it was checked. [facility] Medical History (Updated 12/27/20 @ 05:[address] Jyoti Redmond MD) Arthritis Ataxia Cancer Hx Cholecystectomy Hx Thyroidectomy Hypertension IBS (irritable bowel syndrome) Osteoarthritis Skin cancer Thyroid cancer Vision problems Home Medications conjugated estrogens 1 dose VAGINAL DAILY 10/09/13 [History Last Taken 02/08/19] ergocalciferol (vitamin D2) 2,000 unit PO DAILY 10/09/13 [History Last Taken 02/09/19] levothyroxine 137 mcg PO QHS 10/09/13 [History Last Taken 02/09/19] omega-3 fatty acids 400 mg PO DAILY 10/09/13 [History Last Taken 02/09/19] triamterene-hydrochlorothiazid 1 ea PO DAILY 10/09/13 [History Last Taken 02/09/19] coenzyme Q10 50 mg PO DAILY 03/23/17 [History Last Taken 02/09/19] magnesium oxide 200 mg PO DAILY 10/24/19 [History Last Taken Unknown] multivitamin 1 cap PO DAILY 10/24/19 [History Last Taken Unknown] levothyroxine 68 mcg PO DAILY 12/27/20 [History Last Taken Unknown] losartan 25 mg PO DAILY 12/27/20 [History Last Taken Unknown] Allergy/AdvReac Type Severity Reaction Status Date / Time codeine AdvReac Nausea Verified 12/27/20 03:04 Family History Father , 1977 Alcoholism Emphysema of lung Sister , 2016 ANGINA Cancer Diabetes CVA (cerebral vascular accident) Thyroid disorder Uterine cancer Brother Cancer Diabetes Mother Diabetes Myocardial infarction Heart disease 1964-59 YEARS Hypertension Surgical History History of bilateral knee replacement Hx of breast reduction, elective Social History Smoking Status: Former smoker alcohol intake: never substance use type: does not use ROS ROS ED Constitutional Constitutional ED: Denies chills or fever(s) Eyes Eyes: Denies change in vision ENT ENT ED: Denies sore throat Cardiovascular Cardiovascular: Denies chest pain Respiratory/Chest Respiratory/Chest: Denies cough or dyspnea Gastrointestinal Gastrointestinal: Denies abdominal pain, diarrhea, nausea or vomiting Genitourinary Genitourinary ED: Denies dysuria Musculoskeletal Musculoskeletal: Denies back pain Integumentary Denies rash Neurologic Neurologic: Denies headache(s) or weakness Psychiatric Psychiatric: Denies anxiety or depression Endocrine Endocrinology: Denies polydipsia or polyuria Allergic/Immunologic Allergic/Immunologic ED: Denies urticaria EXAM Physical Exam Const Vital Signs: 12/27/20 03:00 12/27/20 04:01 12/27/20 05:10 Temperature 97.8 F Temperature Source Temporal Pulse Rate 84 70 70 Respiratory Rate 18 16 15 Blood Pressure 166/113 H 174/82 H 138/71 H Blood Pressure Mean 130 112 93 Pulse Ox 98 96 95 Oxygen Delivery Method Room Air Room Air Room Air Positive well nourished and well developed General Appearance ED: well developed HEENT Reports normocephalic and head/scalp atraumatic Eyes PERRL and EOMs intact bilaterally Neck supple Chest Wall inspection of chest normal and palpation of chest normal Resp normal respiratory effort and clear to auscultation bilaterally Cardio regular rate and regular rhythm GI normal to inspection, nondistended, normoactive bowel sounds Palpation: soft Extremity normal to inspection Neuro oriented x3 and no sensory deficits noted Sensorium / Orientation: alert Motor Exam: strength 5/5 throughout Psych mental status grossly normal Skin no rashes or lesions noted MDM MDM MDM Narrative Medical decision making narrative: Patient was placed on secured entrance monitor. EKG and lab work is obtained. Lab Data Attestation: I reviewed the patient's lab results. Labs: Laboratory Results - last 24 hr 12/27/20 12/27/20 12/27/20 03:19 03:19 03:40 WBC 8.5 RBC 4.90 Hgb 13.8 Hct 43.1 MCV 88.0 MCH 28.2 MCHC 32.0 RDW Std Deviation 44.9 H RDW Coeff of Carmine 14.0 Plt Count 296 MPV 10.0 Immature Gran % (Auto) 0.200 Neut % (Auto) 53.9 Lymph % (Auto) 31.0 [place] % (Auto) 9.9 Eos % (Auto) 4.6 Baso % (Auto) 0.4 Absolute Neuts (auto) 4.6 Absolute Lymphs (auto) 2.63 Nucleated RBC % 0 Sodium Cancelled 140 Potassium Cancelled 3.6 Chloride Cancelled 106 Carbon Dioxide Cancelled 29.0 Anion Gap Cancelled 5 BUN Cancelled 18 Creatinine Cancelled 0.66 Estim Creat Clear Calc Cancelled 41.33 Est GFR (MDRD) Af Amer Cancelled 111 Est GFR (MDRD) Non-Af Cancelled 92 BUN/Creatinine Ratio Cancelled 27.2 H Glucose Cancelled 110 H Calcium Cancelled 9.2 Troponin I Cancelled < 0.015 TSH Cancelled 0.84 EKG Initial EKG: Attestation: I personally reviewed and interpreted this EKG as follows: Interpretation: Sinus Rhythm (Sinus at 74 with no acute ischemia.) Treatment and Re-Evaluation Comments:: Patient was observed for a time and blood pressure remained in the 160s and 170s systolic. She was given 110 mg of IV labetalol and repeat blood pressure is 138 systolic. Patient states overall she feels improved and is comfortable going home. I did ask her to check her blood pressure twice a day, write down what time of day it is in which arm she checks it in along with any symptoms she may have. I asked her to follow-up with her doctor or nurse practitioner this coming week to review these numbers to see if her medication needed to be adjusted. I also recommended taking her blood pressure cuff along to the office to ensure it is reading accurately. Discharge Plan Triage Chief Complaint: Palpitations ED Provider: Jyoti Redmond Dx/Rx/DC Orders Clinical Impression: Hypertension Instructions: ED Hypertension, Established Prescriptions: No Action magnesium oxide 200 mg magnesium tablet 200 mg PO DAILY RF: 0 multivitamin capsule 1 cap PO DAILY RF: 0 levothyroxine 137 MCG tablet 137 mcg PO QHS RF: 0 triamterene-hydrochlorothiazid 1 EACH capsule 1 ea PO DAILY RF: 0 conjugated estrogens 1 DOSE cream 1 dose vaginal DAILY RF: 0 omega-3 fatty acids 300 MG capsule 400 mg PO DAILY RF: 0 ergocalciferol (vitamin D2) 2,000 UNIT tablet 2,000 unit PO DAILY RF: 0 coenzyme Q10 50 MG tablet,chewable 50 mg PO DAILY RF: 0 levothyroxine 75 mcg Capsule 68 mcg PO DAILY RF: 0 losartan 25 mg Tablet 25 mg PO DAILY RF: 0 Primary Care Provider: Pauline Alcaraz Referrals: Pauline Alcaraz MD [Primary Care Provider] - 5-7 Days Disposition Disposition: Home, self care
[2020-12-27 03:24] LABS: Absolute Lymphocyte Count 2.63 X10^3/uL (0.83-4.51); Absolute Neutrophil Count 4.6 X10^3/uL (2.0-7.7); Basophil# 0.03 X10^3/uL; Basophil% 0.4 % (0-1); Eosinophil# 0.39 X10^3/uL; Eosinophils% 4.6 % (0-5); Hematocrit 43.1 % (37-47); Hemoglobin 13.8 g/dL (12.0-15.0); Lymphocyte # 2.63 X10^3/ul (0.83-4.51); Mean Corpuscular Hgb 28.2 pg (27.0-32.0); Monocyte# 0.84 X10^3/uL; Monocyte% 9.9 % (0-10); NRBC Flagged by Analyzer 0 % (0-5); Neutrophil # 4.57 X10^3/uL (2.7-7.7); Neutrophil % 53.9 % (47-70); Platelet Count 296 K/mm3 (150-450); RBC Distribution Width SD 44.9 fl (35.1-43.9); White Blood Count 8.5 K/mm3 (4.4-11.0)
[2020-12-27 04:01] VITALS: BP 174/82; PULSE 70; RESP 16; O2SAT 96
[2020-12-27 04:22] LABS: Anion Gap 5 (5-15); BUN 18 mg/dL (7-18); BUN/Creat Ratio 27.2 RATIO (10-20); Calcium,Total 9.2 mg/dL (8.5-10.1); Chloride 106 mmol/L (98-107); Creatinine, Serum 0.66 mg/dL (0.55-1.02); EST Glomerular Filtration Rate 92 mL/min (>60); Est Glom Filt Rate - Afr Amer 111 mL/min (>60); Estimated Creatinine Clearance 41.33 ml/min; Glucose 110 mg/dL (74-106); Potassium 3.6 mmol/L (3.5-5.1); Sodium Level 140 mmol/L (136-145); Thyroid Stim Hormone (TSH) 0.84 uIU/mL (0.358-3.74)
[2020-12-27] MEDS: Labetalol (Prefilled) 20 MG/4 ML 10 MG IV (04:38)
[2020-12-27 05:10] VITALS: BP 138/71; PULSE 70; RESP 15; O2SAT 95
[2020-12-27 05:24] VITALS: BP 138/71; PULSE 70; RESP 15; O2SAT 95
== END 2020-12-27 05:25 | disposition home or self-care (01) ==
PROVIDERS: Emergency Provider Emergency Medicine; PCP Internal Medicine
DX: I10 Essential (primary) hypertension (principal); M19.90 Unspecified osteoarthritis, unspecified site; Z79.899 Other long term (current) drug therapy; Z87.891 Personal history of nicotine dependence
CPT/HCPCS: 80048; 84443; 84484; 85025; 93005; 96374; 99285; A4216

== ENCOUNTER 2021-04-26 02:45 | Emergency (ER) | payer MEDICARE, OTHER, SELFPAY ==
[2021-04-26 02:46] VITALS: BP 195/128; PULSE 134; RESP 15; TEMP 36.3; O2SAT 98; BMI 32.5
--- NOTE | 2021-04-26 02:52 | EKG12_ITS ---
Test Reason : DYSRYTHMIA Blood Pressure : / mmHG Vent. Rate : 142 BPM Atrial Rate : 142 BPM P-R Int : 124 ms QRS Dur : 080 ms QT Int : 296 ms P-R-T Axes : 109 -53 059 degrees QTc Int : 455 ms Atrial Flutter Leftward axis Low voltage QRS (Limb Leads) Left anterior fascicular block Poor R wave progression Abnormal ECG Confirmed by NAOMY MEYERS, JOSEPH ([id number]), international editorial producer JOSE MCGREGOR ([id number]) on 04/27/2021 1:32:15 PM Referred By: LANDON Confirmed By:JOSEPH MORALEZ MD
[2021-04-26 03:08] VITALS: BP 168/108; PULSE 93
--- NOTE | 2021-04-26 03:10 | EX.ED.DYSGE1 ---
HPI History of Present Illness Chief Complaint: Chest Pain Informant: patient and spouse/S.O. Narrative Narrative: 76-year-old female presents the emergency room with palpitations and chest pain. She tells me that around 0000 hours she was getting ready for bed and began to notice an uncomfortable feeling in her chest. She states that she took her blood pressure and it was unusually high and her heart rate was in the 130s. After several hours of the symptoms not abating she came to emergency. She wore a Holter monitor earlier in the year and significant events were noted. She notes a history of thyroid cancer and currently takes losartan for hypertension. She is not on any anticoagulation and has no rate controlling medications. [facility] Medical History (Updated 04/26/21 @ 03:[address] Josué Frances DO) Arthritis Ataxia Cancer Hx Cholecystectomy Hx Thyroidectomy Hypertension IBS (irritable bowel syndrome) Osteoarthritis Skin cancer Thyroid cancer Vision problems Home Medications conjugated estrogens 1 dose VAGINAL DAILY 10/09/13 [History Last Taken 02/08/19] ergocalciferol (vitamin D2) 2,000 unit PO DAILY 10/09/13 [History Last Taken 02/09/19] levothyroxine 137 mcg PO QHS 10/09/13 [History Last Taken 02/09/19] omega-3 fatty acids 400 mg PO DAILY 10/09/13 [History Last Taken 02/09/19] triamterene-hydrochlorothiazid 1 ea PO DAILY 10/09/13 [History Last Taken 02/09/19] coenzyme Q10 50 mg PO DAILY 03/23/17 [History Last Taken 02/09/19] magnesium oxide 200 mg PO DAILY 10/24/19 [History Last Taken Unknown] multivitamin 1 cap PO DAILY 10/24/19 [History Last Taken Unknown] losartan 25 mg PO DAILY 12/27/20 [History Last Taken Unknown] Allergy/AdvReac Type Severity Reaction Status Date / Time codeine AdvReac Nausea Verified 04/26/21 02:51 Family History Father , 1977 Alcoholism Emphysema of lung Sister , 2016 ANGINA Cancer Diabetes CVA (cerebral vascular accident) Thyroid disorder Uterine cancer Brother Cancer Diabetes Mother Diabetes Myocardial infarction Heart disease 1964-59 YEARS Hypertension Surgical History History of bilateral knee replacement Hx of breast reduction, elective Social History Smoking Status: Former smoker alcohol intake: never substance use type: does not use ROS ROS ED Constitutional Constitutional ED: Denies chills or weight loss Eyes Eyes: Denies change in vision or diplopia ENT ENT ED: Denies ear pain, rhinorrhea or sore throat Cardiovascular Cardiovascular: Reports chest pain, palpitations and racing heartbeat; Denies orthopnea Respiratory/Chest Respiratory/Chest: Denies cough, dyspnea or orthopnea Gastrointestinal Gastrointestinal: Denies abdominal pain, diarrhea, nausea or vomiting Genitourinary Genitourinary ED: Denies dysuria, hematuria or urinary frequency Musculoskeletal Musculoskeletal: Denies arthralgias or myalgias Integumentary Denies abscess or rash Neurologic Neurologic: Denies headache(s) or weakness Psychiatric Psychiatric: Denies anxiety, depression, suicidal ideation or suicidal thoughts Endocrine Endocrinology: Denies polydipsia, polyphagia or polyuria Allergic/Immunologic Allergic/Immunologic ED: Denies mouth swelling, tongue swelling or urticaria EXAM Physical Exam Const Vital Signs: 04/26/21 02:46 04/26/21 03:08 Temperature 97.4 F L Temperature Source Temporal Pulse Rate 134 H 93 Respiratory Rate 15 Blood Pressure 195/128 H 168/108 H Blood Pressure Mean 150 128 Pulse Ox 98 Oxygen Delivery Method Room Air Positive well nourished and well developed General Appearance ED: well developed HEENT Reports normocephalic, head/scalp atraumatic and moist mucous membranes Eyes PERRL and EOMs intact bilaterally Neck no lymphadenopathy, supple and no JVD Resp normal respiratory effort and clear to auscultation bilaterally Cardio regular rate and no murmurs Rate: tachycardic Rhythm: abnormal rhythm GI normal to inspection, nondistended, normoactive bowel sounds and non-tender Palpation: soft Back/Spine no CVA tenderness and normal ROM Extremity normal to inspection General Extremety ED: Negative for edema General Extremity: Negative for edema Neuro oriented x3 and CN's II-XII intact bilaterally Sensorium / Orientation: alert Motor Exam: strength 5/5 throughout Psych mental status grossly normal Mood & Affect: Negative for depressed or tearful Skin no rashes or lesions noted and no wounds MDM MDM MDM Narrative Medical decision making narrative: The patient self converted to a normal sinus rhythm. Her initial rhythm appeared to be in atrial flutter with a rate of 142. She maintained this exact rate for the initial 10 minutes that she was here prior to conversion. EKG Initial EKG: Attestation: I personally reviewed and interpreted this EKG as follows: Comments: Atrial flutter with a ventricular rate of 142 Discharge Plan Triage Chief Complaint: Chest Pain ED Provider: Josué Frances Dx/Rx/DC Orders Clinical Impression: Atrial flutter Prescriptions: No Action magnesium oxide 200 mg magnesium tablet 200 mg PO DAILY RF: 0 multivitamin capsule 1 cap PO DAILY RF: 0 levothyroxine 137 MCG tablet 137 mcg PO QHS RF: 0 triamterene-hydrochlorothiazid 1 EACH capsule 1 ea PO DAILY RF: 0 conjugated estrogens 1 DOSE cream 1 dose vaginal DAILY RF: 0 omega-3 fatty acids 300 MG capsule 400 mg PO DAILY RF: 0 ergocalciferol (vitamin D2) 2,000 UNIT tablet 2,000 unit PO DAILY RF: 0 coenzyme Q10 50 MG tablet,chewable 50 mg PO DAILY RF: 0 losartan 25 mg Tablet 25 mg PO DAILY RF: 0 Primary Care Provider: Pauline Alcaraz Referrals: Pauline Alcaraz MD [Primary Care Provider] - Iain Hurley MD [STAFF PHYSICIAN] - As soon as possible
--- NOTE | 2021-04-26 03:15 | RAD_ITS ---
STUDY: X-RAY CHEST REASON FOR EXAM: Female, 76 years old. Chest pain TECHNIQUE: Single AP portable view of the chest. COMPARISON: August 06, 2011 chest x-ray FINDINGS: The lungs are clear and expanded. There is no demonstrated pleural abnormality. Normal size heart. Normal mediastinum and dewey. Normal visualized pulmonary arteries. There is atherosclerotic calcification of the aortic arch with tortuosity. There are diffuse degenerative changes of the visualized thoracic spine. There is degenerative osteoarthritis of the bilateral shoulders. There is no demonstrated abnormality of the visualized soft tissue structures of the upper abdomen. RAD/Chest 1 View (Portable) IMPRESSION: Degenerative changes, as described above. No demonstrated acute cardiopulmonary process. Electronically Signed: Holly Clayton MD at 3:44 EDT Tel , Service support ,
[2021-04-26 03:23] LABS: Absolute Lymphocyte Count 3.24 X10^3/uL (0.83-4.51); Absolute Neutrophil Count 6.3 X10^3/uL (2.0-7.7); Basophil# 0.04 X10^3/uL; Basophil% 0.4 % (0-1); Eosinophil# 0.36 X10^3/uL; Eosinophils% 3.3 % (0-5); Hematocrit 45.4 % (37-47); Hemoglobin 14.6 g/dL (12.0-15.0); Lymphocyte # 3.24 X10^3/ul (0.83-4.51); Lymphocyte % 29.6 % (19-41); Mean Corp Hgb Conc 32.2 g/dL (32-36); Mean Corpuscular Hgb 27.8 pg (27.0-32.0); Mean Corpuscular Volume 86.3 fL (81-99); Mean Platelet Vol. 10.1 fl (6.2-12.0); Monocyte# 0.93 X10^3/uL; Monocyte% 8.5 % (0-10); NRBC Flagged by Analyzer 0 % (0-5); Neutrophil # 6.34 X10^3/uL (2.7-7.7); Neutrophil % 57.8 % (47-70); Platelet Count 320 K/mm3 (150-450); RBC Distribution Width CV 14.3 % (11.6-14.6); RBC Distribution Width SD 45.4 fl (35.1-43.9); Red Blood Count 5.26 M/mm3 (4.2-5.4)
[2021-04-26 03:35] LABS: Anion Gap 6 (5-15); BUN 17 mg/dL (7-18); BUN/Creat Ratio 20.6 RATIO (10-20); Calcium,Total 9.2 mg/dL (8.5-10.1); Chloride 101 mmol/L (98-107); Creatinine, Serum 0.82 mg/dL (0.55-1.02); EST Glomerular Filtration Rate 71 mL/min (>60); Est Glom Filt Rate - Afr Amer 86 mL/min (>60); Estimated Creatinine Clearance 49.61 ml/min; Glucose 112 mg/dL (74-106); Potassium 3.4 mmol/L (3.5-5.1); Sodium Level 139 mmol/L (136-145); Troponin-I HS 33 pg/mL (3.0-54.0)
[2021-04-26] MEDS: Metoprolol(XL)Succ 25 MG Tablet PO (03:51)
[2021-04-26] MEDS: APIXABAN 5 MG TABLET 10 MG PO (03:53)
[2021-04-26 03:56] VITALS: BP 164/87; PULSE 164; RESP 17; O2SAT 98
== END 2021-04-26 03:57 | disposition home or self-care (01) ==
LOC: ED 03:33
PROVIDERS: Emergency Provider Emergency Medicine; PCP Internal Medicine
DX: I48.92 Unspecified atrial flutter (principal); M19.90 Unspecified osteoarthritis, unspecified site; I10 Essential (primary) hypertension; Z79.899 Other long term (current) drug therapy; Z87.891 Personal history of nicotine dependence
CPT/HCPCS: 71045; 80048; 83735; 84484; 85025; 93005; 99285; J7030

== ENCOUNTER 2021-05-02 18:37 | Emergency (ER) | payer MEDICARE, OTHER, SELFPAY ==
[2021-05-02 18:38] VITALS: BP 196/89; PULSE 71; RESP 18; TEMP 36.2; O2SAT 100; BMI 31.0
--- NOTE | 2021-05-02 19:19 | EKG12_ITS ---
Test Reason : DIZZINESS Blood Pressure : / mmHG Vent. Rate : 061 BPM Atrial Rate : 061 BPM P-R Int : 196 ms QRS Dur : 086 ms QT Int : 438 ms P-R-T Axes : 079 -34 010 degrees QTc Int : 440 ms Sinus rhythm with Premature supraventricular complexes Left axis deviation Poor R wave progression Abnormal ECG Confirmed by NAOMY MEYERS, JOSEPH ([id number]), dictionary editor JOSE MCGREGOR ([id number]) on 05/04/2021 1:25:37 PM Referred By: BJ Confirmed By:JOSEPH MORALEZ MD
--- NOTE | 2021-05-02 19:39 | EX.ED.DYSGE1 ---
HPI History of Present Illness Chief Complaint: Dizziness Informant: patient and spouse/S.O. Narrative Narrative: Patient presents with exacerbation of her vertigo. She states she has had this off and on for years. Sometimes it is mild sometimes as bad. She was admitted about a year ago for this. I find out she was also just admitted recently for atrial flutter. She is on Eliquis and metoprolol. She has been taking this until today because she got nauseated and figured she throw up the medicine. She states yesterday she was very active. She moved furniture and even played 18 holes of golf. Today she was a little dizzy when she got up. Its worse any time she moves or changes position. She has had some nausea and even mild vomiting with it. No hematemesis. She has some mild headache in the occipital area but that is typical with her symptoms. She has used Valium before in the hospital which made it better. She has no focal complaints such as numbness tingling or weakness. [facility] Medical History (Updated 05/02/21 @ 21:[address] Long Lorenz MD) Arthritis Ataxia Cancer Hx Cholecystectomy Hx Thyroidectomy Hypertension IBS (irritable bowel syndrome) Osteoarthritis Skin cancer Thyroid cancer Vision problems Home Medications conjugated estrogens 1 dose VAGINAL DAILY 10/09/13 [History Last Taken 02/08/19] ergocalciferol (vitamin D2) 2,000 unit PO DAILY 10/09/13 [History Last Taken 02/09/19] levothyroxine 137 mcg PO QHS 10/09/13 [History Last Taken 02/09/19] triamterene-hydrochlorothiazid 1 ea PO DAILY 10/09/13 [History Last Taken 02/09/19] coenzyme Q10 50 mg PO DAILY 03/23/17 [History Last Taken 02/09/19] magnesium oxide 200 mg PO DAILY 10/24/19 [History Last Taken Unknown] multivitamin 1 cap PO DAILY 10/24/19 [History Last Taken Unknown] losartan 25 mg PO DAILY 12/27/20 [History Last Taken Unknown] apixaban [Eliquis] 5 mg PO BID #74 tab 04/26/21 [Rx Last Taken Unknown] metoprolol succinate 25 mg PO DAILY #30 tab 04/26/21 [Rx Last Taken Unknown] meclizine 25 mg PO TID PRN #20 tab 05/02/21 [Rx Last Taken Unknown] Allergy/AdvReac Type Severity Reaction Status Date / Time codeine AdvReac Nausea Verified 05/02/21 18:38 Family History Father , 1977 Alcoholism Emphysema of lung Sister , 2016 ANGINA Cancer Diabetes CVA (cerebral vascular accident) Thyroid disorder Uterine cancer Brother Cancer Diabetes Mother Diabetes Myocardial infarction Heart disease 1964-59 YEARS Hypertension Surgical History History of bilateral knee replacement Hx of breast reduction, elective Social History Smoking Status: Former smoker alcohol intake: never substance use type: does not use ROS ROS ED Constitutional Constitutional ED: Denies chills, fever(s) or sweats Eyes Eyes: Denies blurry vision, change in vision or diplopia ENT ENT ED: Denies rhinorrhea or sore throat Cardiovascular Cardiovascular: Reports chest pain and other Details: Patient does states she has soreness in her upper chest. She is not sure if this is from vomiting. ; Denies palpitations or racing heartbeat Respiratory/Chest Respiratory/Chest: Denies cough or dyspnea Gastrointestinal Gastrointestinal: Reports nausea and vomiting; Denies abdominal pain, constipation or diarrhea Genitourinary Genitourinary ED: Denies dysuria or hematuria Musculoskeletal Musculoskeletal: Denies back pain, myalgias or neck pain Integumentary Denies rash Neurologic Neurologic: Reports headache(s); Denies paresthesias or weakness Psychiatric Psychiatric: Denies anxiety or depression Endocrine Endocrinology: Denies polydipsia or polyuria Allergic/Immunologic Allergic/Immunologic ED: Denies urticaria EXAM Physical Exam Const Vital Signs: 05/02/21 18:38 05/02/21 19:02 05/02/21 20:37 Temperature 97.1 F L Temperature Source Temporal Pulse Rate 71 73 Respiratory Rate 18 18 Respiratory Effort Normal Non-Labored Blood Pressure 196/89 H Blood Pressure Mean 124 Pulse Ox 100 97 Oxygen Delivery Method Room Air Room Air 05/02/21 22:05 05/03/21 00:23 Temperature Temperature Source Pulse Rate 69 79 Respiratory Rate 13 16 Respiratory Effort Blood Pressure 134/66 H 139/82 H Blood Pressure Mean 88 Pulse Ox 94 99 Oxygen Delivery Method Room Air Positive well nourished and well developed General Appearance ED: well developed and NAD HEENT Reports moist mucous membranes Negative for trauma or tenderness Eyes PERRL and EOMs intact bilaterally Eyes Narrative: Patient gets some mild nystagmus if she moves. She can move a few degrees with the head. But if she moves any significant amount she gets symptoms and nystagmus that is horizontal. Neck supple and no JVD Resp normal respiratory effort and clear to auscultation bilaterally Auscultation: Negative for rales, rhonchi or wheezes Cardio regular rate and regular rhythm Rate: other Other Details: Patient recently had atrial flutter/fibrillation. However, she sounds to be regular on the monitor does show a normal sinus rhythm now. GI normal to inspection, nondistended, normoactive bowel sounds, non-tender and non-distended Palpation: soft Back/Spine no CVA tenderness Extremity normal to inspection General Extremety ED: Negative for tenderness Neuro oriented x3 and no sensory deficits noted Sensorium / Orientation: alert; Negative for orientation impaired, lethargic or stuporous Motor Exam: strength 5/5 throughout Psych mental status grossly normal Skin no rashes or lesions noted and no wounds MDM MDM MDM Narrative Medical decision making narrative: Patient CBC shows nonspecific minimal elevation of white count at 12.3. Electrolytes show no marked abnormalities. Troponin was negative. I rechecked the patient. She did not get up and move but she was able to move back and forth in bed and did feel much better. I explained that if her CT is normal and she feels well enough we may be able to get her home. We will ambulate her to make sure she is doing okay. I am awaiting a CT at this point. CT did come back as no acute process. Patient will be ambulated. As long as she does well and feels well we will get her home for close follow-up. Lab Data Attestation: I reviewed the patient's lab results. Labs: Laboratory Results - last 24 hr 05/02/21 05/02/21 20:29 20:29 WBC 12.3 H RBC 5.19 Hgb 14.5 Hct 44.1 MCV 85.0 MCH 27.9 MCHC 32.9 RDW Std Deviation 43.3 RDW Coeff of Carmine 14.0 Plt Count 313 MPV 10.1 Immature Gran % (Auto) 0.300 Neut % (Auto) 85.7 H Lymph % (Auto) 9.6 L [place] % (Auto) 4.0 Eos % (Auto) 0.2 Baso % (Auto) 0.2 Absolute Neuts (auto) 10.6 H Absolute Lymphs (auto) 1.18 Nucleated RBC % 0 Sodium 135 L Potassium 4.1 Chloride 99 Carbon Dioxide 30.0 Anion Gap 6 BUN 14 Creatinine 0.69 Estim Creat Clear Calc 40.68 Est GFR (MDRD) Af Amer 106 Est GFR (MDRD) Non-Af 87 BUN/Creatinine Ratio 20.2 H Glucose 124 H Calcium 9.5 Troponin I High Sens 10 Radiography Diagnostic Testing: Radiology Impression Chest X-Ray 05/02/21 20:06 IMPRESSION: Normal x-ray examination of the chest. Electronically Signed: Justin Middleton DO at 21:51 EDT Tel [phone], Service support , Brain CT 05/02/21 20:52 IMPRESSION: Age-related changes of the brain. Electronically Signed: Justin Middleton DO at 22:03 EDT Tel [phone], Service support , EKG Initial EKG: Comments: EKG done for chest pain and dizziness read by me shows a normal sinus rhythm with occasional PAC. No ventricular ectopy. No acute ST elevation or depression. IA interval, QRS duration and QTc are normal. Discharge Plan Triage Chief Complaint: Dizziness ED Provider: Long Lorenz Dx/Rx/DC Orders Clinical Impression: Vertigo Instructions: ED Vertigo, Unspecified Prescriptions: New meclizine 25 mg tablet 25 mg PO TID PRN (Reason: dizziness) Qty: 20 RF: 0 No Action magnesium oxide 200 mg magnesium tablet 200 mg PO DAILY RF: 0 multivitamin capsule 1 cap PO DAILY RF: 0 levothyroxine 137 MCG tablet 137 mcg PO QHS RF: 0 triamterene-hydrochlorothiazid 1 EACH capsule 1 ea PO DAILY RF: 0 conjugated estrogens 1 DOSE cream 1 dose vaginal DAILY RF: 0 ergocalciferol (vitamin D2) 2,000 UNIT tablet 2,000 unit PO DAILY RF: 0 coenzyme Q10 50 MG tablet,chewable 50 mg PO DAILY RF: 0 losartan 25 mg Tablet 25 mg PO DAILY RF: 0 metoprolol succinate 25 mg tablet extended release 24 hr 25 mg PO DAILY Qty: 30 RF: 0 Eliquis 5 MG tablet 5 mg PO BID Qty: 74 RF: 0 Primary Care Provider: Pauline Alcaraz Referrals: Pauline Alcaraz MD [Primary Care Provider] - 3-5 Days if not improving Disposition Disposition: Home, Self Care Discharge Date/Time: 05/03/21 00:23
[2021-05-02] MEDS: LORazepam 2 MG/ML Syringe 1 MG IV (19:50)
[2021-05-02] MEDS: Ondansetron 4 MG/2 ML Vial IV (19:50)
[2021-05-02] MEDS: 0.9% Normal Saline 1,000 ML 1000 ML IV (19:51)
[2021-05-02] MEDS: Meclizine HCl 25 MG Tablet PO (19:51)
--- NOTE | 2021-05-02 20:06 | RAD_ITS ---
STUDY: X-RAY CHEST REASON FOR EXAM: Female, 76 years old. SOB TECHNIQUE: Frontal view COMPARISON: 04/26/2021 FINDINGS: The lungs are clear and expanded. There is no demonstrated pleural abnormality. Normal size heart. Normal mediastinum and dewey. Normal visualized pulmonary arteries. Calcified aortic arch and descending thoracic aorta. Degenerative changes of the thoracic spine. Degenerative changes at the shoulders. There is no demonstrated abnormality of the visualized soft tissue structures of the upper abdomen. RAD/Chest 1 View (Portable) IMPRESSION: Normal x-ray examination of the chest. Electronically Signed: Justin Middleton DO at 21:51 EDT Tel [phone], Service support ,
[2021-05-02 20:36] LABS: Absolute Lymphocyte Count 1.18 X10^3/uL (0.83-4.51); Absolute Neutrophil Count 10.6 X10^3/uL (2.0-7.7); Basophil# 0.03 X10^3/uL; Basophil% 0.2 % (0-1); Eosinophil# 0.02 X10^3/uL; Eosinophils% 0.2 % (0-5); Hematocrit 44.1 % (37-47); Hemoglobin 14.5 g/dL (12.0-15.0); Lymphocyte # 1.18 X10^3/ul (0.83-4.51); Lymphocyte % 9.6 % (19-41); Mean Corp Hgb Conc 32.9 g/dL (32-36); Mean Corpuscular Hgb 27.9 pg (27.0-32.0); Mean Platelet Vol. 10.1 fl (6.2-12.0); Monocyte# 0.49 X10^3/uL; NRBC Flagged by Analyzer 0 % (0-5); Neutrophil # 10.56 X10^3/uL (2.7-7.7); Neutrophil % 85.7 % (47-70); Platelet Count 313 K/mm3 (150-450); RBC Distribution Width SD 43.3 fl (35.1-43.9); Red Blood Count 5.19 M/mm3 (4.2-5.4); White Blood Count 12.3 K/mm3 (4.4-11.0)
[2021-05-02 20:37] VITALS: PULSE 73; RESP 18; O2SAT 97
--- NOTE | 2021-05-02 20:52 | CT_ITS ---
STUDY: CT BRAIN WITHOUT CONTRAST REASON FOR EXAM: Female, 76 years old. Headache RADIATION DOSAGE (If Supplied By Facility): CTDIvol = ( 44.99 ) mGy, DLP = ( 796.11 ) mGycm TECHNIQUE: Transaxial CT imaging of the brain was performed without administration of intravenous contrast material. Individualized dose optimization techniques were used for this CT. COMPARISON: 02/09/2019 FINDINGS: Normal soft tissue structures. Normal calvarium. Normal size ventricles and extra-axial spaces for the patient''s age. Mild white matter microangiopathic ischemic changes of the cerebral hemispheres. Normal basal ganglia and thalami. Normal brainstem. Normal cerebellum. There is no intracranial hemorrhage. There are no findings of an acute ischemic infarction. Normal visualized paranasal sinuses. CT/Brain/Head without Contrast IMPRESSION: Age-related changes of the brain. Electronically Signed: Justin Middleton DO at 22:03 EDT Tel [phone], Service support ,
[2021-05-02 21:01] LABS: Anion Gap 6 (5-15); BUN 14 mg/dL (7-18); BUN/Creat Ratio 20.2 RATIO (10-20); Calcium,Total 9.5 mg/dL (8.5-10.1); Chloride 99 mmol/L (98-107); Creatinine, Serum 0.69 mg/dL (0.55-1.02); EST Glomerular Filtration Rate 87 mL/min (>60); Est Glom Filt Rate - Afr Amer 106 mL/min (>60); Estimated Creatinine Clearance 40.68 ml/min; Glucose 124 mg/dL (74-106); Potassium 4.1 mmol/L (3.5-5.1); Sodium Level 135 mmol/L (136-145); Troponin-I HS 10 pg/mL (3.0-54.0)
[2021-05-02 22:05] VITALS: BP 134/66; PULSE 69; RESP 13; O2SAT 94
--- NOTE | 2021-05-02 22:27 | ED.RN ---
pt denies dizziness with ambulation. pt groggy and unsteady from ativan. to observe
[2021-05-03 00:23] VITALS: BP 139/82; PULSE 79; RESP 16; O2SAT 99
== END 2021-05-03 00:23 | disposition home or self-care (01) ==
LOC: ED 19:32
PROVIDERS: Emergency Provider Emergency Medicine; PCP Internal Medicine
DX: R42 Dizziness and giddiness (principal); I10 Essential (primary) hypertension; I48.92 Unspecified atrial flutter; Z79.01 Long term (current) use of anticoagulants; Z87.891 Personal history of nicotine dependence; Z90.49 Acquired absence of other specified parts of digestive tract; Z79.899 Other long term (current) drug therapy
CPT/HCPCS: 70450; 71045; 80048; 84484; 85025; 93005; 96361; 96374; 96375; 99285; J2405

== ENCOUNTER 2021-08-06 07:23 | Outpatient (CLI) | payer MEDICARE, OTHER, SELFPAY ==
--- NOTE | 2021-08-06 07:28 | ECHOCS_ITS ---
Reason For Study: AFIB Procedure This was a 2D Doppler, Color Flow transthoracic echocardiogram. The study was technically difficult. Contrast injection was performed. Exam performed in department. Left Ventricle Normal LV size. Apical false tendon noted. Left ventricular systolic function is normal. The estimated ejection fraction is 60 %. There is evidence of diastolic dysfunction. No regional wall motion abnormalities noted. Right Ventricle Normal RV size. Normal systolic function. Atria The left atrium is mildly enlarged. Normal right atrium. No doppler evidence for ASD. Mitral Valve There is mild to moderate mitral annular calcification. Extension of the mitral annular calcification on the base of the posterior mitral valve leaflet. Mild (1+) eccentric mitral valve insufficiency. Tricuspid Valve Normal tricuspid valve. Trivial tricuspid valve insufficiency. Right ventricular systolic pressure estimated to be 36 mmHg. Aortic Valve Trisinus/trileaflet aortic valve. Mild focal aortic valve thickening. Mild focal aortic valve calcification. Pulmonic Valve The pulmonic valve is not well visualized. Great Vessels The aortic root is not well visualized. Pericardium/Pleural No pericardial effusion. Medication Diluted definity 2.5ml given slow IV push to enhance endocardial definition. MMode/2D Measurements & Calculations LVIDd: 4.9 cm IVSd: 0.88 cm LVOT diam: 2.0 cm LVIDs: 3.0 cm LVPWd: 0.79 cm RVDd: 2.6 cm FS: 38.4 % LVOT area: 3.2 cm2 LAV(MOD-bp): 57.1 ml LA A4 area: 18.9 cm2 LA dimension(2D): 4.3 cm LAV(MOD-bp) Indexed: 30.1 ml/m2 LAV(MOD-sp2): 54.7 ml LAV(MOD-sp4): 57.5 ml RA A4 area: 11.5 cm2 Doppler Measurements & Calculations MV E max arnold: 98.6 cm/sec Lat Peak E' Arnold: 6.6 cm/sec Med Peak E' Arnold: 4.3 cm/sec MV A max arnold: 112.6 cm/sec E/E' lat: 14.8 E/E' med: 22.8 MV E/A: 0.88 MV V2 max: 117.9 cm/sec Ao V2 max: 121.9 cm/sec LV V1 max: 113.4 cm/sec MV max P.6 mmHg Ao max P.9 mmHg LV V1 max P.2 mmHg MV V2 mean: 84.0 cm/sec LISANDRO(V,D): 3.0 cm2 MV mean P.0 mmHg MV V2 VTI: 29.8 cm TR max arnold: 287.7 cm/sec MV P1/2t-pr_phl: 79.7 msec TR max P.1 mmHg ECHO/Echo Complete W/ Contrast Interpretation Summary The study was technically difficult. Contrast injection was performed. Left ventricular systolic function is normal. The estimated ejection fraction is 60 %. Apical false tendon noted. The left atrium is mildly enlarged. There is mild to moderate mitral annular calcification. Extension of the mitral annular calcification on the base of the posterior mitr al valve leaflet. Mild (1+) eccentric mitral valve insufficiency. Trivial tricuspid valve insufficiency. Mild focal aortic valve thickening. Mild focal aortic valve calcification. Right ventricular systolic pressure estimated to be 36 mmHg. There is evidence of diastolic dysfunction. Ordering Physician: Iain Hurley Referring Physician: MARIKA PARK Performed By: Rebeca Goddard, RDCS, RVT
--- NOTE | 2021-08-06 11:54 | STRESSREP ---
Stress Test Report Date: 08-06-2021 Procedure: Pharmacologic stress nuclear imaging study Indications: PAC, atrial flutter Consent: Per the patient Procedure: The patient underwent pharmacologic (Regadenoson 0.4mg ) evaluation with a peak heart rate of 107 beats per minute (74%predicted maximal heart rate) and a peak blood pressure of 144/88 mmHg. The baseline ECG demonstrated normal sinus rhythm; low voltage QRS; poor R wave progression. The peak pharmacologic ECG demonstrated no obvious ECG changes. There was a rare PVC during recovery. There was no complaint of chest discomfort during pharmacologic infusion or recovery. The examination was discontinued secondary to completion of protocol. Impression: 1. Pharmacologic (Regadenoson) evaluation 2. Peak pharmacologic ECG with no obvious ECG change. 3. There was a rare PVC during recovery. 4. Nuclear images pending Myocardial perfusion imaging study: Technique: The patient was injected with 11.8 millicuries of technetium 99m Cardiolite and subsequently rest SPECT Cardiolite nuclear imaging was obtained in the horizontal long, vertical long, and short axis views. The patient underwent pharmacologic (Regadenoson) evaluation with a peak heart rate of 107 beats per minute (74% percent predicted maximal heart rate) and a peak blood pressure of 144/88 mmHg. The patient was injected with 34.2 millicuries of technetium 99m Cardiolite and subsequently stress SPECT Cardiolite nuclear imaging was obtained in the horizontal long, vertical long, and short axis views. A gated Cardiolite study at peak stress was obtained. Interpretation: Rest and stress SPECT Cardiolite nuclear imaging status post realignment, normalization, and attenuation correction demonstrate relative uniform tracer uptake and myocardial perfusion appearing within normal limits. There is end systolic thickening and brightening. The gated Cardiolite study demonstrates myocardial thickening and inward wall motion. The reported LVEF is 81%. Impression: 1. Rest and stress SPECT Cardiolite nuclear imaging demonstrate relative uniform tracer uptake and myocardial perfusion appearing within normal limits. 2. The gated Cardiolite study reports an LVEF of 81%. This note was generated with [employer] software. It may contain incorrect words, spelling, and punctuation that were not noted in checking the note before signing.
== END 2021-08-06 23:59 | disposition short-term general hospital (02) ==
LOC: CVS 07:24
PROVIDERS: PCP Internal Medicine; Referring Provider Internal Medicine Cardiovascular Disease; Visit Provider Internal Medicine Cardiovascular Disease
DX: I49.1 Atrial premature depolarization (principal); R07.9 Chest pain, unspecified
CPT/HCPCS: 78452; 93017; 93306; A9500; Q9957; A4216; C8929; J2785

== ENCOUNTER → 2023-01-18 | Outpatient (CLI) | payer MEDICARE, OTHER, SELFPAY ==
--- NOTE | 2023-01-19 05:45 | PFTCOMP_ITS ---
COMPLETE PULMONARY FUNCTION TEST INTERPRETATION Brief HPI: Patient is a 77-year-old female, currently under the care of myself, who presents to [facility] for complete pulmonary function tests secondary to diagnosis of chronic cough. Respiratory therapist reports good effort and reproducible results. Interpretation: Forced expiration spirometry shows a mild large airways obstructive ventilatory defect with an FEV1 of 71% predicted. There is no significant bronchodilator response by strict ATS criteria. Spirograms are of good quality and plateau slowly, indicating slowly emptying areas of the lungs. The respiratory flow volume loop shows decreased expiratory flow rates at all lung volumes consistent with airway obstruction. Lung volumes by body plethysmography show a slightly decreased total lung capacity at 3.75 L, 79% predicted. All other lung volumes are reduced symmetrically. Diffusion capacity by carbon monoxide is normal at 83% predicted. The airway resistance is elevated. No previous pulmonary function tests were available for review. Impression: Irreversible mild mixed ventilatory defect with a symmetric reduction diffusion capacity
== END | disposition home or self-care (01) ==
LOC: PSN 09:11
PROVIDERS: PCP Internal Medicine; Referring Provider Internal Medicine Critical Care Medicine; Visit Provider Internal Medicine Critical Care Medicine
DX: R06.09 Other forms of dyspnea (principal)
CPT/HCPCS: 94060; 94726; 94729

== ENCOUNTER 2024-08-15 05:01 | Emergency (ER) | payer MEDICARE, OTHER, SELFPAY ==
[2024-08-15 05:02] VITALS: BP 175/122; PULSE 116; RESP 17; TEMP 36.5; O2SAT 98; BMI 31.8
--- NOTE | 2024-08-15 05:21 | EKG12_ITS ---
Test Reason : DYSRHYTHMIA Blood Pressure : */* mmHG Vent. Rate : 123 BPM Atrial Rate : * BPM P-R Int : * ms QRS Dur : 92 ms QT Int : 330 ms P-R-T Axes : * -30 64 degrees QTcB Int : 472 ms Atrial fibrillation with rapid ventricular response Left axis deviation Pulmonary disease pattern Nonspecific ST abnormality Abnormal ECG Confirmed by DEMETRIO MEYERS, AG ([id number]), continuity editor MICHAEL REED ([id number]) on 08/27/2024 2:20:05 PM Referred By: ESTRELLITA Confirmed By: AG ATKINSON MD
[2024-08-15] MEDS: dilTIAZem 25 MG/5 ML Vial 15 MG IV BOLUS (05:28)
[2024-08-15] MEDS: 0.9% Normal Saline (1000mL) 1,000 ML 999 ML IV (05:28)
--- NOTE | 2024-08-15 05:29 | EX.ED.DYSGE1 ---
HPI History of Present Illness Chief Complaint: Palpitations Informant: patient and spouse/S.O. Narrative Narrative: Patient is an 79-year-old female with past medical history of hypothyroidism paroxysmal atrial fibrillation/flutter currently on Eliquis as well as hypertension and COPD. She states she takes Eliquis twice a day for her history of A-fib and has taken it as directed without missing doses. She also reports she is on metoprolol and has been taking that as directed as well. She states her life has been stressful recently as she has been in [place] secondary to her son having heart issues. Other than the increased rest she states she has been feeling normal without fevers chills increased cough congestion shortness of breath or dysuria. Patient states she was tired and went to bed last night and then awoke around 3:30 in the morning with her heart racing. 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 Symptomatic menopausal or female climacteric states Vaginal enterocele, congenital or acquired Postmenopausal atrophic vaginitis Rectocele Plantar fasciitis Pain in joint, shoulder region Nontoxic multinodular goiter Indeterminate pulmonary nodules Hemorrhage of gastrointestinal tract, unspecified Cystocele, midline Benign neoplasm of colon Colon polyp Dyspnea on exertion Chest pain, unspecified Essential hypertension Ventricular ectopy Premature atrial contraction Paroxysmal atrial flutter Vision problems Thyroid cancer Skin cancer Osteoarthritis IBS (irritable bowel syndrome) Cancer Arthritis Ataxia Home Medications ?Medication ?Instructions ?Recorded ?Last Taken ?Type conjugated estrogens 0.625 mg/gram 1 dose vaginal DAILY dryness 10/09/13 02/08/19 History vaginal cream magnesium oxide 200 mg PO DAILY 10/24/19 Unknown History multivitamin 1 cap PO DAILY 10/24/19 Unknown History apixaban 5 mg tablet (Eliquis) 5 mg PO BID #74 tabs 04/26/21 Unknown Rx metoprolol succinate 25 mg 25 mg PO DAILY #30 tabs 04/26/21 Unknown Rx tablet,extended release 24 hr losartan 50 mg tablet 50 mg PO DAILY 07/16/21 Unknown History triamterene 37.5 1 tab PO DAILY 07/16/21 Unknown History mg-hydrochlorothiazide 25 mg tablet cholecalciferol (vitamin D3) 50 50 mcg PO DAILY 01/07/23 Unknown History mcg (2,000 unit) tablet coenzyme Q10 10 mg capsule 10 mg PO ONCE 01/07/23 Unknown History levothyroxine 112 mcg tablet 112 mcg PO DAILY 01/07/23 Unknown History spacer #1 ea 02/22/23 Unknown Rx spacer #1 ea 03/21/23 Unknown Rx fluticasone propionate 230 2 inh inhalation BID #3 ea 07/05/23 Unknown Rx mcg-salmeterol 21 mcg/actuation HFA inhaler (Advair HFA) montelukast 10 mg tablet 10 mg PO QPM #30 tabs 12/27/23 Unknown Rx lactobacillus combination no.4 3 3,000 mmu cells PO DAILY supplement 08/15/24 Unknown History billion cell capsule (Probiotic) metoprolol succinate 50 mg 50 mg PO DAILY 30 days #30 tabs 08/15/24 Unknown Rx tablet,extended release 24 hr Allergy/AdvReac Type Severity Reaction Status Date / Time Sulfa (Sulfonamide Allergy Rash Verified 08/15/24 05:02 Antibiotics) codeine AdvReac Nausea Verified 08/15/24 05:02 Family History Father , 1977 Alcoholism Emphysema of lung Sister , 2016 ANGINA Cancer Diabetes CVA (cerebral vascular accident) Thyroid disorder Uterine cancer Brother Cancer Diabetes Mother Diabetes Myocardial infarction Heart disease 1964-59 YEARS Hypertension Surgical History History of cholecystectomy History of thyroidectomy Hx of breast reduction, elective History of bilateral knee replacement Social History Smoking Status: Former smoker alcohol intake: never substance use type: does not use caffeine: Yes Type: coffee Number of servings: 4 ROS ROS ED Constitutional Constitutional ED: Denies chills or fever(s) Eyes Eyes: Denies blurry vision or change in vision ENT ENT ED: Denies sore throat Cardiovascular Cardiovascular: Reports palpitations and racing heartbeat; Denies chest pain Respiratory/Chest Respiratory/Chest: Denies cough or dyspnea Gastrointestinal Gastrointestinal: Denies abdominal pain, diarrhea, nausea or vomiting Genitourinary Genitourinary ED: Denies dysuria Musculoskeletal Musculoskeletal: Denies myalgias Integumentary Denies rash Neurologic Neurologic: Denies headache(s), paresthesias or weakness Hematologic/Lymphatic Hematologic/Lymphatic: Reports easy bleeding and easy bruising EXAM Physical Exam Const Vital Signs: 08/15/24 05:02 08/15/24 05:02 08/15/24 07:08 Temperature 97.7 F L Temperature Source Oral Pulse Rate 116 H 84 Respiratory Rate 17 16 Respiratory Effort Normal Non-Labored Blood Pressure 175/122 H 155/75 H Blood Pressure Mean 139 101 Pulse Ox 98 97 Oxygen Delivery Method Room Air Room Air Positive well nourished and well developed General Appearance ED: well developed; Negative for pallor HEENT HEENT Narrative: Normocephalic atraumatic Eyes PERRL and EOMs intact bilaterally General Eye ED: Negative for scleral icterus Neck supple and no JVD Resp normal respiratory effort Resp Narrative: Breath sounds are slight diminished throughout with faint expiratory wheezes in the bilateral bases consistent history of COPD but no signs of respiratory distress Cardio Rate: other Other Details: Irregularly irregular rhythm with tachycardic rate consistent with atrial fibrillation with RVR GI normal to inspection, nondistended, normoactive bowel sounds, non-tender, non-distended and no masses Auscultation: normoactive bowel sounds Palpation: soft Extremity normal to inspection Extremity Narrative: No asymmetric edema no pitting edema negative Homans' sign bilaterally Neuro oriented x3, CN's II-XII intact bilaterally and no sensory deficits noted Sensorium / Orientation: alert Motor Exam: strength 5/5 throughout Psych mental status grossly normal Skin no rashes or lesions noted General Skin Exam: Negative for jaundice or pallor [facility] History & Record Review Discussion w/independent historian: Patient and Significant other Lab Data Labs: Laboratory Results - last 24 hr 08/15/24 05:06 WBC 9.4 RBC 4.78 Hgb 13.5 Hct 41.9 MCV 87.7 MCH 28.2 MCHC 32.2 RDW Std Deviation 47.4 H RDW Coeff of Carmine 14.6 Plt Count 359 MPV 10.4 Immature Gran % (Auto) 0.700 Neut % (Auto) 60.6 Lymph % (Auto) 25.7 Rapides % (Auto) 9.7 Eos % (Auto) 2.8 Baso % (Auto) 0.5 Absolute Neuts (auto) 5.7 Absolute Lymphs (auto) 2.43 Nucleated RBC % 0 Sodium 135 L Potassium 3.2 L Chloride 101 Carbon Dioxide 32.0 Anion Gap 2 L BUN 16 Creatinine 0.88 Estim Creat Clear Calc 53.50 Est GFR (MDRD) Af Amer 80 Est GFR (MDRD) Non-Af 66 BUN/Creatinine Ratio 18.3 Glucose 131 H Calcium 9.8 Magnesium 2.0 TSH 4.640 H Discharge Plan Triage Chief Complaint: Palpitations ED Provider: Lemuel Willett Dx/Rx/DC Orders Clinical Impression: Atrial fibrillation with rapid ventricular response, Essential hypertension, Current use of nursing home anticoagulation, Hypothyroidism Instructions: AFib Dc, ED Hypertension, Established Prescriptions: New metoprolol succinate 50 mg tablet extended release 24 hr 50 mg PO DAILY 30 Days Qty: 30 0RF No Action magnesium oxide 200 mg magnesium tablet 200 mg PO DAILY multivitamin Capsule 1 cap PO DAILY triamterene-hydrochlorothiazid 37.5-25 mg tablet 1 tab PO DAILY losartan 50 mg tablet 50 mg PO DAILY coenzyme Q10 10 mg capsule 10 mg PO ONCE levothyroxine 112 mcg tablet 112 mcg PO DAILY cholecalciferol (vitamin D3) 50 mcg (2,000 unit) tablet 50 mcg PO DAILY (DME) spacer See Rx Instructions .ROUTE .MEDSUPPLY Qty: 1 0RF Rx Instructions: As directed montelukast 10 mg tablet 10 mg PO QPM Qty: 30 3RF conjugated estrogens 1 DOSE cream 1 dose vaginal DAILY Patient Comments: bi weekly 0.5mg metoprolol succinate 25 mg tablet extended release 24 hr 25 mg PO DAILY Qty: 30 0RF Eliquis 5 MG tablet 5 mg PO BID Qty: 74 0RF Rx Instructions: 10 mg twice a day for the first week. Then 5 mg twice a day. Probiotic 3 billion cell capsule 3,000 mmu cells PO DAILY Patient Comments: pt unsure of dosage Rx Instructions: administer with a meal (DME) spacer See Rx Instructions .ROUTE .MEDSUPPLY Qty: 1 0RF Rx Instructions: As directed fluticasone propion-salmeterol [Advair HFA] 230-21 mcg/actuation HFA aerosol inhaler 2 inh inhalation BID Qty: 3 3RF Primary Care Provider: Pauline Alcaraz Referrals: Mamadou Manrique MD [Med Staff - Active Staff] - Pauline Alcaraz MD [Primary Care Provider] - Activity Restrictions/Additional Instructions: Increase your metoprolol to 50 mg once a day. Otherwise continue all of your medication as directed by your doctor. Follow-up with cardiology for repeat evaluation and return to the ER should you have any further concerns Print Language: Singaporean Disposition Disposition: Home, Self Care
[2024-08-15 05:31] LABS: Absolute Lymphocyte Count 2.43 X10^3/uL (0.83-4.51); Absolute Neutrophil Count 5.7 X10^3/uL (2.0-7.7); Basophil# 0.05 X10^3/uL; Basophil% 0.5 % (0-1); Eosinophil# 0.26 X10^3/uL; Eosinophils% 2.8 % (0-5); Hematocrit 41.9 % (37-47); Hemoglobin 13.5 g/dL (12.0-15.0); Lymphocyte # 2.43 X10^3/ul (0.83-4.51); Lymphocyte % 25.7 % (19-41); Mean Corp Hgb Conc 32.2 g/dL (32-36); Mean Corpuscular Hgb 28.2 pg (27.0-32.0); Mean Corpuscular Volume 87.7 fL (81-99); Mean Platelet Vol. 10.4 fl (6.2-12.0); Monocyte# 0.92 X10^3/uL; Monocyte% 9.7 % (0-10); NRBC Flagged by Analyzer 0 % (0-5); Neutrophil # 5.71 X10^3/uL (2.7-7.7); Neutrophil % 60.6 % (47-70); Platelet Count 359 K/mm3 (150-450); RBC Distribution Width CV 14.6 % (11.6-14.6); RBC Distribution Width SD 47.4 fl (35.1-43.9); Red Blood Count 4.78 M/mm3 (4.2-5.4); White Blood Count 9.4 K/mm3 (4.4-11.0)
[2024-08-15 06:19] LABS: Anion Gap 2 (5-15); BUN 16 mg/dL (7-18); BUN/Creat Ratio 18.3 RATIO (10-20); Calcium,Total 9.8 mg/dL (8.5-10.1); Chloride 101 mmol/L (98-107); Creatinine, Serum 0.88 mg/dL (0.55-1.02); EST Glomerular Filtration Rate 66 mL/min (>60); Est Glom Filt Rate - Afr Amer 80 mL/min (>60); Glucose 131 mg/dL (74-106); Potassium 3.2 mmol/L (3.5-5.1); Sodium Level 135 mmol/L (136-145)
[2024-08-15 07:08] VITALS: BP 155/75; PULSE 84; RESP 16; O2SAT 97
[2024-08-15] MEDS: Metoprolol(XL)Succ 25 MG Tablet PO (07:59)
[2024-08-15 08:00] VITALS: BP 162/85; PULSE 82; RESP 20; O2SAT 99
[2024-08-15] MEDS: dilTIAZem 25 MG/5 ML Vial 20 MG IV BOLUS (08:00)
[2024-08-15 09:02] VITALS: BP 135/66; PULSE 68; RESP 18; TEMP 36.7; O2SAT 97
== END 2024-08-15 09:03 | disposition home or self-care (01) ==
PROVIDERS: Emergency Provider Emergency Medicine; PCP Internal Medicine; Visit Provider Emergency Medicine
DX: I48.91 Unspecified atrial fibrillation (principal); J44.9 Chronic obstructive pulmonary disease, unspecified; I10 Essential (primary) hypertension; Z87.891 Personal history of nicotine dependence; Z79.01 Long term (current) use of anticoagulants; E89.0 Postprocedural hypothyroidism; Z79.899 Other long term (current) drug therapy

== ENCOUNTER → 2024-10-25 | Outpatient (CLI) | payer MEDICARE, OTHER, SELFPAY | END | disposition home or self-care (01) | LOC: PSN 09:47 | PROVIDERS: PCP Internal Medicine; Referring Provider Physician Assistant Medical; Visit Provider Physician Assistant Medical | DX: I48.0 Paroxysmal atrial fibrillation (principal) | CPT/HCPCS: 93225; 93226 ==

== ENCOUNTER 2024-12-31 10:32 | Inpatient (IN) | payer MEDICARE, OTHER, SELFPAY ==
[2024-12-31] VITALS (18 sets, daily range): BP systolic 100–145; BP diastolic 41–67; PULSE 65–79; RESP 10–18; TEMP 36.4–37; O2SAT 96–100; BMI 33.5
--- NOTE | 2024-12-31 10:55 | EKG12_ITS ---
Test Reason : GENERAL Blood Pressure : */* mmHG Vent. Rate : 75 BPM Atrial Rate : 75 BPM P-R Int : 180 ms QRS Dur : 98 ms QT Int : 418 ms P-R-T Axes : 75 -25 39 degrees QTcB Int : 466 ms Normal sinus rhythm Normal ECG Confirmed by Abdias Yan ([id number]), legal editor JOSE MCGREGOR ([id number]) on 01/01/2025 9:53:56 AM Referred By: Confirmed By: Abdias Yan
--- NOTE | 2024-12-31 10:55 | EX.ED.DYSGE1 ---
HPI History of Present Illness Chief Complaint: Weakness Detail of Chief Complaint: Exertional dyspnea and fatigue. Informant: patient Onset/Context/Timing Onset: Days Context: Gradual Onset Timing: Intermittent Current Severity: Mild Maximum Severity: Mild Narrative Narrative: 79-year-old female history of atrial flutter on Eliquis and history of COPD. States since Tuesday she has had generalized weakness and fatigue. Exertional dyspnea at times some chest discomfort. Says she just does not have any energy. Denies any fever or chills. Denies any vomiting or diarrhea. Denies any dysuria. No abdominal pain. 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 Symptomatic menopausal or female climacteric states Vaginal enterocele, congenital or acquired Postmenopausal atrophic vaginitis Rectocele Plantar fasciitis Pain in joint, shoulder region Nontoxic multinodular goiter Indeterminate pulmonary nodules Hemorrhage of gastrointestinal tract, unspecified Cystocele, midline Benign neoplasm of colon Colon polyp Dyspnea on exertion Chest pain, unspecified Essential hypertension Ventricular ectopy Premature atrial contraction Paroxysmal atrial flutter Vision problems Thyroid cancer Skin cancer Osteoarthritis IBS (irritable bowel syndrome) Cancer Arthritis Ataxia Home Medications ?Medication ?Instructions ?Recorded ?Last Taken ?Type conjugated estrogens 0.625 mg/gram 1 dose vaginal .COMPLEX dryness 10/09/13 02/08/19 History vaginal cream magnesium oxide 200 mg PO DAILY 10/24/19 12/31/24 History multivitamin 1 cap PO DAILY 10/24/19 12/31/24 History triamterene 37.5 1 tab PO QODAY 07/16/21 12/31/24 History mg-hydrochlorothiazide 25 mg tablet cholecalciferol (vitamin D3) 50 50 mcg PO DAILY 01/07/23 12/31/24 History mcg (2,000 unit) tablet coenzyme Q10 10 mg capsule 10 mg PO ONCE 01/07/23 12/31/24 History levothyroxine 112 mcg tablet 112 mcg PO DAILY 01/07/23 12/30/24 History spacer #1 ea 02/22/23 Unknown Rx spacer #1 ea 03/21/23 Unknown Rx lactobacillus combination no.4 3 3,000 mmu cells PO DAILY supplement 08/15/24 12/31/24 History billion cell capsule (Probiotic) fluticasone propionate 230 2 inh inhalation BID #3 ea 09/18/24 12/31/24 Rx mcg-salmeterol 21 mcg/actuation HFA inhaler (Advair HFA) metoprolol succinate 50 mg 50 mg PO BID 90 days #180 tabs 09/28/24 12/31/24 Rx tablet,extended release 24 hr apixaban 5 mg tablet (Eliquis) 5 mg PO BID 12/31/24 12/31/24 History losartan 100 mg tablet 100 mg PO DAILY 12/31/24 12/31/24 History triamterene 37.5 2 tab PO QODAY 12/31/24 12/30/24 History mg-hydrochlorothiazide 25 mg tablet Allergy/AdvReac Type Severity Reaction Status Date / Time Sulfa (Sulfonamide Allergy Rash Verified 12/31/24 10:33 Antibiotics) codeine AdvReac Nausea Verified 12/31/24 10:33 Family History Father , 1977 Alcoholism Emphysema of lung Sister , 2016 ANGINA Cancer Diabetes CVA (cerebral vascular accident) Thyroid disorder Uterine cancer Brother Cancer Diabetes Mother Diabetes Myocardial infarction Heart disease 1964-59 YEARS Hypertension Surgical History History of cholecystectomy History of thyroidectomy Hx of breast reduction, elective History of bilateral knee replacement Social History Smoking Status: Former smoker how long ago did patient quit smokin alcohol intake: never substance use type: does not use caffeine: Yes Type: coffee Number of servings: 4 and tea ROS ROS ED ROS Narrative Exertional dyspnea. Fatigue. Occasional chest pressure. Constitutional Constitutional ED: Denies chills or fever(s) Eyes Eyes: Denies blurry vision ENT ENT ED: Denies ear pain Cardiovascular Cardiovascular: Reports chest pain Respiratory/Chest Respiratory/Chest: Reports dyspnea and dyspnea on exertion Gastrointestinal Gastrointestinal: Denies abdominal pain Genitourinary Genitourinary ED: Denies dysuria or hematuria Musculoskeletal Musculoskeletal: Denies arthralgias Integumentary Denies abscess Neurologic Neurologic: Denies headache(s) Psychiatric Psychiatric: Denies anxiety Endocrine Endocrinology: Denies cold intolerance Hematologic/Lymphatic Hematologic/Lymphatic: Reports none Allergic/Immunologic Allergic/Immunologic ED: Denies mouth swelling, tongue swelling or urticaria EXAM Physical Exam Narrative Exam Narrative: 79-year-old female sitting upright in bed. Vital signs are stable afebrile. Pulse ox is 97 to 99% on room air. She is in no distress. Currently no family with her. H EENT exam pupils round react light. Moist mucous membranes. No trauma. Neck nontender. Lungs clear to auscultation bilaterally. Heart regular rhythm rate about 75 no murmur. Chest wall and ribs nontender. Abdomen soft nontender. Back nontender. Moving all 4 extremities. Calves are nontender. There is no cords. She has normal bait tier strength. Normal dorsi plantarflexion. She does have bilateral very mild ankle edema. Neurologically she is awake and alert. Answering questions following commands.No focal motor deficits. Const Vital Signs: 12/31/24 10:33 12/31/24 11:33 12/31/24 12:00 Temperature 98 F Temperature Source Oral Pulse Rate 76 72 70 Respiratory Rate 16 16 16 Respiratory Pattern Blood Pressure 137/67 H 100/60 106/41 L Blood Pressure Mean 90 73 62 Pulse Ox 97 96 97 Oxygen Delivery Method Room Air Room Air 12/31/24 12:00 12/31/24 13:35 Temperature Temperature Source Pulse Rate 70 Respiratory Rate 10 L Respiratory Pattern Normal Blood Pressure 111/54 L Blood Pressure Mean 73 Pulse Ox 100 Oxygen Delivery Method Room Air Positive well nourished and well developed; Negative for cachectic, contractures or unkempt General Appearance ED: well developed and NAD; Negative for unkempt, cachectic, contractures, cyanotic, diaphoretic or pallor Nutritional Appearance: Negative for cachectic HEENT Reports moist mucous membranes Negative for trauma or tenderness Eyes PERRL and EOMs intact bilaterally General Eye ED: Negative for pale conjunctiva Neck no lymphadenopathy, supple and no JVD General: Negative for tenderness Chest Wall inspection of chest normal and palpation of chest normal Resp normal respiratory effort and clear to auscultation bilaterally Auscultation: Negative for rales, rhonchi, wheezes or diminished lung sounds Cardio regular rate, regular rhythm, S1 normal heart sound, S2 normal heart sound and no murmurs GI normal to inspection, nondistended, normoactive bowel sounds, non-tender, non-distended and no masses Auscultation: normoactive bowel sounds Palpation: soft; Negative for tender, guarding or rebound tenderness present Back/Spine no CVA tenderness General Back: Negative for CVA tenderness Cervical Spine: Negative for cervical spine tenderness Thoracic Spine / Upper Back: Negative for thoracic spinal tenderness Lumbar Spine / Lower Back: Negative for lumbar spinal tenderness Extremity normal to inspection Extremity Narrative: Except for trace bilateral ankle edema. Nontender. General Extremety ED: Yes edema General Extremity: edema Neuro oriented x3 and CN's II-XII intact bilaterally Sensorium / Orientation: alert Motor Exam: strength 5/5 throughout Psych mental status grossly normal Appearance: Negative for unkempt Mood & Affect: Negative for depressed, anxious or tearful Skin no rashes or lesions noted, no wounds and skin turgor normal General Skin Exam: Negative for jaundice or pallor Lesions: No lesion noted Rashes: No rashes noted Trauma: Negative for abrasion Wounds: Negative for wounds noted MDM MDM MDM Narrative Medical decision making narrative: 79-year-old female on Eliquis due to atrial flutter with a history of COPD complaining of the at times generalized weakness and fatigue. Chest pressure. Differential would include cardiac disease, COPD, anemia excetra. She undergo cardiac workup. Exam is benign. Patient brought in a stool sample with her. It is very dark looks black looks like it could be from an upper GI bleed. Repeat exam patient is doing well at 2:20 PM. I explained to her she is anemic I suspect is from an upper GI bleed. She has been typed and crossed she will be transfused 2 units of blood. Have already spoken to the hospitalist to admit the patient. I have GI on page. History & Record Review Discussion w/independent historian: Patient Additional record(s) reviewed:: Prior inpatient record, Prior outpatient record, Prior ED visit and Prior labs Lab Data Attestation: I reviewed the patient's lab results. Lab results narrative: CBC shows a white count of 9. H&H of 6.2 and 20. Platelets of 330. Initial troponin 10. BMP shows a sodium 137. Gap 14. BUN 20 creatinine 0.8. Glucose 113. Labs are consistent with acute anemia secondary to a GI bleed which I suspect is upper Labs: Laboratory Results - last 24 hr 12/31/24 12/31/24 12/31/24 11:55 11:55 12:30 WBC Cancelled 9.0 Corrected WBC Cancelled RBC Cancelled 2.48 L Hgb Cancelled 6.2 L Hct Cancelled 20.1 L MCV Cancelled 81.0 MCH Cancelled 25.0 L MCHC Cancelled 30.8 L RDW Std Deviation Cancelled 44.1 H RDW Coeff of Carmine Cancelled 15.0 H Plt Count Cancelled 330 MPV Cancelled 10.6 Immature Gran % (Auto) Cancelled 0.600 Neut % (Auto) Cancelled 72.2 H Lymph % (Auto) Cancelled 15.4 L Glenn % (Auto) Cancelled 10.5 H Eos % (Auto) Cancelled 1.1 Baso % (Auto) Cancelled 0.2 Absolute Neuts (auto) Cancelled 6.5 Absolute Lymphs (auto) Cancelled 1.39 Total Counted Cancelled Neutrophils % (Manual) Cancelled Band Neutrophils % Cancelled Lymphocytes % (Manual) Cancelled Monocytes % (Manual) Cancelled Eosinophils % (Manual) Cancelled Basophils % (Manual) Cancelled Metamyelocytes % Cancelled Myelocytes % Cancelled Promyelocytes % Cancelled Blast Cells % Cancelled Plasma Cell % (Manual) Cancelled Other Cells % Cancelled Nucleated RBC % Cancelled 0 Nucleated RBCs/100 WBC Cancelled Differential Comment Cancelled Diff Path Review Cancelled Hypersegmented Neuts Cancelled Atypical Lymphocytes Cancelled Reactive Lymphocytes Cancelled Smudge Cells Cancelled Toxic Granulation Cancelled Toxic Vacuolation Cancelled Dohle Bodies Cancelled Naz Rods Cancelled Platelet Estimate Cancelled Plt Morphology Comment Cancelled RBC Morphology Cancelled Cancelled Polychromasia Cancelled Hypochromasia Cancelled Basophilic Stippling Cancelled Anisocytosis Cancelled Microcytosis Cancelled Macrocytosis Cancelled Spherocytes Cancelled Sickle Cells Cancelled Target Cells Cancelled Tear Drop Cells Cancelled Ovalocytes Cancelled Stomatocytes Cancelled [place] Bodies Cancelled [place] Cells Cancelled Bite Cells Cancelled Crenated Cell Cancelled Acanthocytes (Spur) Cancelled Rouleaux Cancelled Schistocytes Cancelled Sodium 137 Potassium 3.4 Chloride 101 Carbon Dioxide 22.3 Anion Gap 14 BUN 20 H Creatinine 0.88 Est GFR (MDRD) Non-Af 66 BUN/Creatinine Ratio 23.2 H Glucose 113 H Calcium 9.4 Troponin T High Sens 10 Radiography Chest X-Ray - ED: 2 View, Read by ED Physician, Read by Radiologist, Normal, Lungs, Mediastinum, Bony Structures, No Acute Disease and Chronic Changes Diagnostic Testing: Clinical Impression(s) from Imaging Studies Chest X-Ray 12/31/24 11:35 IMPRESSION: No acute cardiopulmonary process. Reading Location: [facility] Chest x-ray, 2 views, AP and lateral, interpreted both by myself and radiologist shows no acute process. Normal cardiac silhouette. No edema. No effusions. No infiltrate. Chronic changes. Rhythm Strip Rhythm Strip: Sinus Rhythm Rate: 75 Ectopy: None EKG Initial EKG: Attestation: I personally reviewed and interpreted this EKG as follows: Interpretation: Sinus Rhythm and No Acute Injury Pattern Comments: Normal sinus rhythm rate of 75 no acute signs of OH nor ischemia. Discharge Plan Triage Chief Complaint: Weakness ED Provider: Trenton Lenz Dx/Rx/DC Orders Clinical Impression: Acute upper gastrointestinal bleeding, Acute anemia, Chronic anticoagulation, History of atrial fibrillation, Transfusion of blood during current hospitalisation Prescriptions: No Action magnesium oxide 200 mg magnesium tablet 200 mg PO DAILY multivitamin Capsule 1 cap PO DAILY triamterene-hydrochlorothiazid 37.5-25 mg tablet 1 tab PO QODAY coenzyme Q10 10 mg capsule 10 mg PO ONCE levothyroxine 112 mcg tablet 112 mcg PO DAILY cholecalciferol (vitamin D3) 50 mcg (2,000 unit) tablet 50 mcg PO DAILY (DME) spacer See Rx Instructions .ROUTE .MEDSUPPLY Qty: 1 0RF Rx Instructions: As directed fluticasone propion-salmeterol [Advair HFA] 230-21 mcg/actuation HFA aerosol inhaler 2 inh inhalation BID Qty: 3 3RF conjugated estrogens 1 DOSE cream 1 dose vaginal .COMPLEX Patient Comments: ONLY USES WHEN DRYNESS OCCURS Rx Instructions: 1 dose vaginally BI-WEEKLY; losartan 100 mg tablet 100 mg PO DAILY triamterene-hydrochlorothiazid 37.5-25 mg tablet 2 tab PO QODAY Eliquis 5 MG tablet 5 mg PO BID Probiotic 3 billion cell capsule 3,000 mmu cells PO DAILY Patient Comments: pt unsure of dosage Rx Instructions: administer with a meal (DME) spacer See Rx Instructions .ROUTE .MEDSUPPLY Qty: 1 0RF Rx Instructions: As directed metoprolol succinate 50 mg tablet extended release 24 hr 50 mg PO BID 90 Days Qty: 180 3RF Rx Instructions: This is a dose increase Primary Care Provider: Pauline Alcaraz Referrals: Pauline Alcaraz MD [Primary Care Provider] - Print Language: Persian Disposition Disposition: [facility]
--- NOTE | 2024-12-31 11:35 | RAD_ITS ---
EXAM: XR Chest, 2 Views CLINICAL INDICATION: CHEST PAIN TECHNIQUE: Frontal and lateral views of the chest. COMPARISON: No relevant prior studies available. FINDINGS: LUNGS AND PLEURAL SPACES: Unremarkable. No consolidation. No pneumothorax. HEART: Unremarkable. No cardiomegaly. MEDIASTINUM: Unremarkable. Normal mediastinal contour. BONES/JOINTS: Unremarkable. No acute fracture. RAD/Chest PA and Lateral IMPRESSION: No acute cardiopulmonary process. Reading Location: [facility]
[2024-12-31 13:14] LABS: Anion Gap 14 (5-15); BUN 20 mg/dL (4-19); BUN/Creat Ratio 23.2 RATIO (10-20); Calcium,Total 9.4 mg/dL (7.6-11.0); Carbon Dioxide 22.3 mmol/L (21.0-32.0); Chloride 101 mmol/L (98-108); Creatinine, Serum 0.88 mg/dL (0.70-1.20); EST Glomerular Filtration Rate 66 (>60); Glucose 113 mg/dL (70-99); Potassium 3.4 mmol/L (3.3-5.1); Sodium Level 137 mmol/L (133-145); Troponin T High Sensitivity 10 ng/L (<=14)
[2024-12-31 13:46] LABS: Absolute Lymphocyte Count 1.39 X10^3/uL (0.83-4.51); Absolute Neutrophil Count 6.5 X10^3/uL (2.0-7.7); Basophil# 0.02 X10^3/uL; Basophil% 0.2 % (0-1); Eosinophils% 1.1 % (0-5); Hematocrit 20.1 % (37-47); Hemoglobin 6.2 g/dL (12.0-15.0); Lymphocyte # 1.39 X10^3/ul (0.83-4.51); Lymphocyte % 15.4 % (19-41); Mean Corp Hgb Conc 30.8 g/dL (32-36); Mean Platelet Vol. 10.6 fl (6.2-12.0); Monocyte# 0.95 X10^3/uL; Monocyte% 10.5 % (0-10); NRBC Flagged by Analyzer 0 % (0-5); Neutrophil # 6.51 X10^3/uL (2.7-7.7); Neutrophil % 72.2 % (47-70); Platelet Count 330 K/mm3 (150-450); RBC Distribution Width SD 44.1 fl (35.1-43.9); Red Blood Count 2.48 M/mm3 (4.2-5.4)
--- NOTE | 2024-12-31 14:33 | HP.PCM.HOS_ITS ---
HPI - General General Date of Admission: 12/31/24 Date of Service: 12/31/24 Chief Complaint: Fatigue/Exertional Dyspnea HPI Narrative MARIETTA MOREJON, is a 79 F who presented to the emergency department at [facility] on 12/31/2024 with a chief complaint of shortness of breath with exertion and fatigue. Patient reported that since Tuesday she has been experiencing generalized weakness and fatigue. At times she was having chest discomfort however she is not currently having any. She indicated she just does not seem to have any energy. She denied any fever or chills. She has had no vomiting or diarrhea. She has had no constipation. She does indicate that her stool has been darker than usual and she is on Eliquis for history of atrial fibrillation/flutter. 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 Symptomatic menopausal or female climacteric states Vaginal enterocele, congenital or acquired Postmenopausal atrophic vaginitis Rectocele Plantar fasciitis Pain in joint, shoulder region Nontoxic multinodular goiter Indeterminate pulmonary nodules Hemorrhage of gastrointestinal tract, unspecified Cystocele, midline Benign neoplasm of colon Colon polyp Dyspnea on exertion Chest pain, unspecified Essential hypertension Ventricular ectopy Premature atrial contraction Paroxysmal atrial flutter Vision problems Thyroid cancer Skin cancer Osteoarthritis IBS (irritable bowel syndrome) Cancer Arthritis Ataxia Home Medications ?Medication ?Instructions ?Recorded ?Last Taken ?Type conjugated estrogens 0.625 mg/gram 1 dose vaginal .COM PLEX dryness 10/09/13 02/08/19 History vaginal cream magnesium oxide 200 mg PO DAILY 10/24/1909/25 History multivitamin 1 cap PO DAILY 10/24/1909/25 History triamterene 37.5 1 tab PO QODAY 07/16/2109/25 History mg-hydrochlorothiazide 25 mg tablet cholecalciferol (vitamin D3) 50 50 mcg PO DAILY 12/31/24 History mcg (2,000 unit) tablet coenzyme Q10 10 mg capsule 10 mg PO ONCE 01/07/2309/25 History levothyroxine 112 mcg tablet 112 mcg PO DAILY 01/07/23 12/30/24 History spacer #1 ea 07/25/23 Unknown Rx spacer #1 ea 03/21/23 Unknown Rx lactobacillus combination no.4 3 3,000 mmu cells PO DA JOE supplement 08/15/24 12/31/24 History billion cell capsule (Probiotic) fluticasone propionate 230 2 inh inhalation BID #3 ea 09/18/24 12/31/24 Rx mcg-salmeterol 21 mcg/actuation HFA inhaler (Advair HFA) metoprolol succinate 50 mg 50 mg PO BID 90 days #180 t abs 09/28/24 12/31/24 Rx tablet,extended release 24 hr apixaban 5 mg tablet (Eliquis) 5 mg PO BID 12/31/24 History losartan 100 mg tablet 100 mg PO DAILY 12/31/2409/25 History triamterene 37.5 2 tab PO QODAY 12/31/2408/25 History mg-hydrochlorothiazide 25 mg tablet Allergy/AdvReac Type Severity Reaction Status Date / Time Sulfa (Sulfonamide Allergy Rash Verified 12/31/24 10:33 Antibiotics) codeine AdvReac Nausea Verified 12/31/24 10:33 Family History Father , 1977 Alcoholism Emphysema of lung Sister , 2016 ANGINA Cancer Diabetes CVA (cerebral vascular accident) Thyroid disorder Uterine cancer Brother Cancer Diabetes Mother Diabetes Myocardial infarction Heart disease 1964-59 YEARS Hypertension Surgical History History of cholecystectomy History of thyroidectomy Hx of breast reduction, elective History of bilateral knee replacement Social History Smoking Status: Former smoker how long ago did patient quit smokin alcohol intake: never substance use type: does not use caffeine: Yes Type: coffee Number of servings: 4 and tea Vital Signs Vital Signs Vital Signs: 12/31/24 10:33 12/31/24 11:33 12/31/24 12:00 Temperature 98 F Temperature Source Oral Pulse Rate 76 72 70 Respiratory Rate 16 16 16 Respiratory Pattern Blood Pressure 137/67 H 100/60 106/41 L Blood Pressure Mean 90 73 62 Pulse Ox 97 96 97 Oxygen Delivery Method Room Air Room Air 12/31/24 12:00 12/31/24 13:35 Temperature Temperature Source Pulse Rate 70 Respiratory Rate 10 L Respiratory Pattern Normal Blood Pressure 111/54 L Blood Pressure Mean 73 Pulse Ox 100 Oxygen Delivery Method Room Air Weight Weight: 88.496 kg Body Mass Index (BMI) 33.5 Results Lab / Micro Data 12/31/24 12:30 12/31/24 11:55 Labs: Laboratory Results - last 24 hr 12/31/24 11:55: WBC Cancelled, Corrected WBC Cancelled, RBC Cancelled, Hgb Cancelled, Hct Cancelled, MCV Cancelled, MCH Cancelled, MCHC Cancelled, RDW Std Deviation Cancelled, RDW Coeff of Carmine Cancelled, Plt Count Cancelled, MPV Cancelled, Immature Gran % (Auto) Cancelled, Neut % (Auto) Cancelled, Lymph % (Auto) Cancelled, [place] % (Auto) Cancelled, Eos % (Auto) Cancelled, Baso % (Auto) Cancelled, Absolute Neuts (auto) Cancelled, Absolute Lymphs (auto) Cancelled, Total Counted Cancelled, Neutrophils % (Manual) Cancelled, Band Neutrophils % Cancelled, Lymphocytes % (Manual) Cancelled, Monocytes % (Manual) Cancelled, Eosinophils % (Manual) Cancelled, Basophils % (Manual) Cancelled, Metamyelocytes % Cancelled, Myelocytes % Cancelled, Promyelocytes % Cancelled, Blast Cells % Cancelled, Plasma Cell % (Manual) Cancelled, Other Cells % Cancelled, Nucleated RBC % Cancelled, Nucleated RBCs/100 WBC Cancelled, Differential Comment Cancelled, Diff Path Review Cancelled, Hypersegmented Neuts Cancelled, Atypical Lymphocytes Cancelled, Reactive Lymphocytes Cancelled, Smudge Cells Cancelled, Toxic Granulation Cancelled, Toxic Vacuolation Cancelled, Dohle Bodies Cancelled, Naz Rods Cancelled, Platelet Estimate Cancelled, Plt Morphology Comment Cancelled, RBC Morphology Cancelled 12/31/24 11:55: RBC Morphology Cancelled, Polychromasia Cancelled, Hypochromasia Cancelled, Basophilic Stippling Cancelled, Anisocytosis Cancelled, Microcytosis Cancelled, Macrocytosis Cancelled, Spherocytes Cancelled, Sickle Cells Cancelled, Target Cells Cancelled, Tear Drop Cells Cancelled, Ovalocytes Cancelled, Stomatocytes Cancelled, Winters-[place] Bodies Cancelled, Ary Cells Cancelled, Bite Cells Cancelled, Crenated Cell Cancelled, Acanthocytes (Spur) Cancelled, Rouleaux Cancelled, Schistocytes Cancelled, Sodium 137, Potassium 3.4, Chloride 101, Carbon Dioxide 22.3, Anion Gap 14, BUN 20 H, Creatinine 0.88, Est GFR (MDRD) Non-Af 66, BUN/Creatinine Ratio 23.2 H, Glucose 113 H, Calcium 9.4, Troponin T High Sens 10 12/31/24 12:30: WBC 9.0, RBC 2.48 L, Hgb 6.2 L, Hct 20.1 L, MCV 81.0, MCH 25.0 L , MCHC 30.8 L, RDW Std Deviation 44.1 H, RDW Coeff of Carmine 15.0 H, Plt Count 330, MPV 10.6, Immature Gran % (Auto) 0.600, Neut % (Auto) 72.2 H, Lymph % (Auto) 15.4 L, Sawyer % (Auto) 10.5 H, Eos % (Auto) 1.1, Baso % (Auto) 0.2, Absolute Neuts (auto) 6.5, Absolute Lymphs (auto) 1.39, Nucleated RBC % 0 Rhythm Strip Rhythm Strip: Sinus Rhythm Rate: 75 Ectopy: None Imaging Radiology Impression Chest X-Ray 12/31/24 11:35 IMPRESSION: No acute cardiopulmonary process. Reading Location: [facility] Assessment & Plan Assessment/Plan (1) History of atrial fibrillation: (2) Chronic anticoagulation: (3) Acute anemia: (4) GIB (gastrointestinal bleeding): (5) Medication side effect: Charges/Coding Visit Charges Inpatient E&M: 53620 Init Hosp L2
--- NOTE | 2024-12-31 14:33 | PCM.HP.STD ---
HPI - General General Date of Admission: 12/31/24 Date of Service: 12/31/24 Chief Complaint: Fatigue/Exertional Dyspnea HPI Katiana MOREJON, is a 79 F who presented to the emergency department at [facility] on 12/31/2024 with a chief complaint of shortness of breath with exertion and fatigue. Patient reported that since Tuesday she has been experiencing generalized weakness and fatigue. At times she was having chest discomfort however she is not currently having any. She indicated she just does not seem to have any energy. She denied any fever or chills. She has had no vomiting or diarrhea. She has had no constipation. She does indicate that her stool has been darker than usual and she is on Eliquis for history of atrial fibrillation/flutter. Patient indicated that her stool has been darker than typical for several months now. She was unable to give me an exact timeframe. She stated she had 2 very dark bowel movements that were blowouts over the weekend. 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 She states her stools are never hard and always soft. Her last dose of Eliquis was on the morning of presentation. She has never had this issue before. Her last colonoscopy was outpatient at [facility] in 2022. She has never had an EGD. Vital signs on presentation showed temperature of 98, heart rate 76, respiratory rate 16, blood pressure is 137/67, pulse ox was 97% on room air. CBC showed a marked anemia with a hemoglobin of 6.2. This was normocytic. Her most recent CBC we have on record is from August 2024 at which time she was 13.5. Chemistry panel was unremarkable. BUN/creatinine ratio was not all that significant. With a BUN of 20 and a serum creatinine of 0.88. Initial troponin was 10 with a delta pending. Chest x-ray was unremarkable for acute findings. EKG showed no evidence of acute ischemia. She is currently normal sinus rhythm. In the emergency department she was given acetaminophen 1 g x 1 dose and ordered 4 units of blood with 2 to be on hold and to to be given. Per discussion with ER physician Dr. Jaimes was consulted by the emergency department and will evaluate the patient on the medical floor. 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 Symptomatic menopausal or female climacteric states Vaginal enterocele, congenital or acquired Postmenopausal atrophic vaginitis Rectocele Plantar fasciitis Pain in joint, shoulder region Nontoxic multinodular goiter Indeterminate pulmonary nodules Hemorrhage of gastrointestinal tract, unspecified Cystocele, midline Benign neoplasm of colon Colon polyp Dyspnea on exertion Chest pain, unspecified Essential hypertension Ventricular ectopy Premature atrial contraction Paroxysmal atrial flutter Vision problems Thyroid cancer Skin cancer Osteoarthritis IBS (irritable bowel syndrome) Cancer Arthritis Ataxia Home Medications ?Medication ?Instructions ?Recorded ?Last Taken ?Type conjugated estrogens 0.625 mg/gram 1 dose vaginal .COMPLEX dryness 10/09/13 02/08/19 History vaginal cream magnesium oxide 200 mg PO DAILY 10/24/19 12/31/24 History multivitamin 1 cap PO DAILY 10/24/19 12/31/24 History triamterene 37.5 1 tab PO QODAY 07/16/21 12/31/24 History mg-hydrochlorothiazide 25 mg tablet cholecalciferol (vitamin D3) 50 50 mcg PO DAILY 01/07/23 12/31/24 History mcg (2,000 unit) tablet coenzyme Q10 10 mg capsule 10 mg PO ONCE 01/07/23 12/31/24 History levothyroxine 112 mcg tablet 112 mcg PO DAILY 01/07/23 12/30/24 History spacer #1 ea 02/22/23 Unknown Rx spacer #1 ea 03/21/23 Unknown Rx lactobacillus combination no.4 3 3,000 mmu cells PO DAILY supplement 08/15/24 12/31/24 History billion cell capsule (Probiotic) fluticasone propionate 230 2 inh inhalation BID #3 ea 09/18/24 12/31/24 Rx mcg-salmeterol 21 mcg/actuation HFA inhaler (Advair HFA) metoprolol succinate 50 mg 50 mg PO BID 90 days #180 tabs 09/28/24 12/31/24 Rx tablet,extended release 24 hr apixaban 5 mg tablet (Eliquis) 5 mg PO BID 12/31/24 12/31/24 History losartan 100 mg tablet 100 mg PO DAILY 12/31/24 12/31/24 History triamterene 37.5 2 tab PO QODAY 12/31/24 12/30/24 History mg-hydrochlorothiazide 25 mg tablet Allergy/AdvReac Type Severity Reaction Status Date / Time Sulfa (Sulfonamide Allergy Rash Verified 12/31/24 10:33 Antibiotics) codeine AdvReac Nausea Verified 12/31/24 10:33 Family History Father , 1977 Alcoholism Emphysema of lung Sister , 2016 ANGINA Cancer Diabetes CVA (cerebral vascular accident) Thyroid disorder Uterine cancer Brother Cancer Diabetes Mother Diabetes Myocardial infarction Heart disease 1964-59 YEARS Hypertension Surgical History History of cholecystectomy History of thyroidectomy Hx of breast reduction, elective History of bilateral knee replacement Social History Smoking Status: Former smoker how long ago did patient quit smokin alcohol intake: never substance use type: does not use caffeine: Yes Type: coffee Number of servings: 4 and tea ROS Constitutional Constitutional: Reports fatigue and weakness; Denies anorexia, change in weight, chills, fever(s), malaise, night sweats or other Eyes Eyes: Denies blurry vision, change in eye color, change in vision, discharge from eye(s), double vision, erythema, eye pain, loss of vision or other ENT HEENT: Denies abnormal hearing, dysphagia, ear pain, epistaxis, headache(s), hearing loss, nasal congestion, nasal discharge, post nasal drip, sinus pressure, sore throat or other Cardiovascular Cardiovascular: Reports dyspnea on exertion, edema and other Details: Intermittent chest discomfort ; Denies chest pain, claudication, lightheadedness, orthopnea, palpitations, paroxysmal nocturnal dyspnea, rapid heart rate or syncope Respiratory/Chest Respiratory/Chest: Reports shortness of breath with exertion; Denies cough, dyspnea, excessive phlegm production, hemoptysis, productive cough, shortness of breath at rest, wheezing or other Gastrointestinal Gastrointestinal: Reports melena; Denies abdominal pain, coffee ground emesis, constipation, diarrhea, dyspepsia, hematemesis, hematochezia, loose stools, nausea, vomiting or other Genitourinary Genitourinary: Denies burning urination, difficulty urinating, dysuria, hematuria, nocturia, urinary frequency, urinary hesitancy, urinary incontinence, urinary urgency or other Musculoskeletal Musculoskeletal: Denies arthralgias, back pain, joint pain, joint stiffness, joint swelling, myalgias, neck pain or other Neurologic Neurologic: Denies abnormal gait, abnormal speech, confusion, disequilibrium, dizziness, focal weakness, headache(s), numbness, paresthesias, seizure-like activity, seizures, syncope, tingling, tremor(s) or other Psychiatric Psychiatric: Denies anxiety, depression, homicidal ideation, suicidal ideation or other Endocrine Endocrinology: Denies change in body appearance, cold intolerance, excessive sweating, heat intolerance, polydipsia, polyuria or other Hematologic/Lymphatic Hematologic/Lymphatic: Reports easy bleeding and easy bruising; Denies anemia, lymphadenopathy or other Allergic/Immunologic Allergic/Immunologic: Denies rhinitis, hives, eczemia, asthma or other Vital Signs Vital Signs Vital Signs: 12/31/24 10:33 12/31/24 11:33 12/31/24 12:00 Temperature 98 F Temperature Source Oral Pulse Rate 76 72 70 Respiratory Rate 16 16 16 Respiratory Pattern Blood Pressure 137/67 H 100/60 106/41 L Blood Pressure Mean 90 73 62 Pulse Ox 97 96 97 Oxygen Delivery Method Room Air Room Air 12/31/24 12:00 12/31/24 13:35 Temperature Temperature Source Pulse Rate 70 Respiratory Rate 10 L Respiratory Pattern Normal Blood Pressure 111/54 L Blood Pressure Mean 73 Pulse Ox 100 Oxygen Delivery Method Room Air Weight Weight: 88.496 kg Body Mass Index (BMI) 33.5 Physical Exam Const alert, oriented x3, no apparent distress and well nourished; Negative for average body habitus Constitutional Narrative: elderly, obese, white female, sitting up in bed, appears comfortable, nontoxic, very pleasant General Appearance: cooperative HEENT normocephalic, head/scalp atraumatic and moist oral mucous membranes; Negative for hearing grossly normal bilaterally HEENT Narrative: Mild hearing loss, dentures in place, Mallampati 3, no thrush Eyes Eyes Narrative: Conjunctiva are considerably pale upon laterally, no scleral icterus Neck no lymphadenopathy and supple Neck Narrative: Trachea midline Resp normal respiratory effort, no retractions, no use of accessory muscles and clear to auscultation bilaterally Auscultation: Negative for rales, rhonchi or wheezes Cardio regular rate, regular rhythm, S1 normal heart sound, S2 normal heart sound, no rub, no gallops and no clicks; Negative for no murmurs Cardio Narrative: 2 out of 6 systolic murmur loudest at the right upper sternal border GI normal to inspection, nondistended, normoactive bowel sounds, soft to palpation and non-tender Extremity Extremity Narrative: Trace bilateral lower extremity pitting edema that is chronic, no cyanosis or clubbing Skin Skin Narrative: Skin is pale, skin changes consistent with previous sun exposure Neuro oriented x3, CN's II-XII intact bilaterally, moves all extremities and no focal motor deficits Speech: speech normal Psych affect normal Psych Narrative: Extremely pleasant, interacts appropriately, eye contact is good Results Lab / Micro Data 12/31/24 12:30 12/31/24 11:55 Labs: Laboratory Results - last 24 hr 12/31/24 11:55: WBC Cancelled, Corrected WBC Cancelled, RBC Cancelled, Hgb Cancelled, Hct Cancelled, MCV Cancelled, MCH Cancelled, MCHC Cancelled, RDW Std Deviation Cancelled, RDW Coeff of Carmine Cancelled, Plt Count Cancelled, MPV Cancelled, Immature Gran % (Auto) Cancelled, Neut % (Auto) Cancelled, Lymph % (Auto) Cancelled, Ware % (Auto) Cancelled, Eos % (Auto) Cancelled, Baso % (Auto) Cancelled, Absolute Neuts (auto) Cancelled, Absolute Lymphs (auto) Cancelled, Total Counted Cancelled, Neutrophils % (Manual) Cancelled, Band Neutrophils % Cancelled, Lymphocytes % (Manual) Cancelled, Monocytes % (Manual) Cancelled, Eosinophils % (Manual) Cancelled, Basophils % (Manual) Cancelled, Metamyelocytes % Cancelled, Myelocytes % Cancelled, Promyelocytes % Cancelled, Blast Cells % Cancelled, Plasma Cell % (Manual) Cancelled, Other Cells % Cancelled, Nucleated RBC % Cancelled, Nucleated RBCs/100 WBC Cancelled, Differential Comment Cancelled, Diff Path Review Cancelled, Hypersegmented Neuts Cancelled, Atypical Lymphocytes Cancelled, Reactive Lymphocytes Cancelled, Smudge Cells Cancelled, Toxic Granulation Cancelled, Toxic Vacuolation Cancelled, Dohle Bodies Cancelled, Naz Rods Cancelled, Platelet Estimate Cancelled, Plt Morphology Comment Cancelled, RBC Morphology Cancelled 12/31/24 11:55: RBC Morphology Cancelled, Polychromasia Cancelled, Hypochromasia Cancelled, Basophilic Stippling Cancelled, Anisocytosis Cancelled, Microcytosis Cancelled, Macrocytosis Cancelled, Spherocytes Cancelled, Sickle Cells Cancelled, Target Cells Cancelled, Tear Drop Cells Cancelled, Ovalocytes Cancelled, Stomatocytes Cancelled, [place] Bodies Cancelled, [place] Cells Cancelled, Bite Cells Cancelled, Crenated Cell Cancelled, Acanthocytes (Spur) Cancelled, Rouleaux Cancelled, Schistocytes Cancelled, Sodium 137, Potassium 3.4, Chloride 101, Carbon Dioxide 22.3, Anion Gap 14, BUN 20 H, Creatinine 0.88, Est GFR (MDRD) Non-Af 66, BUN/Creatinine Ratio 23.2 H, Glucose 113 H, Calcium 9.4, Troponin T High Sens 10 12/31/24 12:30: WBC 9.0, RBC 2.48 L, Hgb 6.2 L, Hct 20.1 L, MCV 81.0, MCH 25.0 L, MCHC 30.8 L, RDW Std Deviation 44.1 H, RDW Coeff of Carmine 15.0 H, Plt Count 330, MPV 10.6, Immature Gran % (Auto) 0.600, Neut % (Auto) 72.2 H, Lymph % (Auto) 15.4 L, Ware % (Auto) 10.5 H, Eos % (Auto) 1.1, Baso % (Auto) 0.2, Absolute Neuts (auto) 6.5, Absolute Lymphs (auto) 1.39, Nucleated RBC % 0 Rhythm Strip Rhythm Strip: Sinus Rhythm Rate: 75 Ectopy: None Imaging Radiology Impression Chest X-Ray 12/31/24 11:35 IMPRESSION: No acute cardiopulmonary process. Reading Location: [facility] Assessment & Plan Assessment/Plan (1) History of atrial fibrillation: (2) Chronic anticoagulation: (3) Acute anemia: (4) GIB (gastrointestinal bleeding): (5) Medication side effect: (6) Melena: (7) Exertional dyspnea: (8) Generalized weakness: PLAN: Plan Melena secondary to GI bleed due to Eliquis side effect - Patient on chronic Eliquis for atrial fibrillation with last dose being on a.m. of presentation - Hemoglobin in August was 13.5 and down to 6.2 on the day of admission - Transfused 2 units packed red blood cells with 2 on hold per ED - Cycle every 4 hours hemoglobin - Protonix bolus with drip - Hold Eliquis - Consult GI for endoscopy likely tomorrow - Will start clear liquid diet for now and n.p.o. after midnight Acute anemia - Secondary to the above - Baseline hemoglobin 13-15 - 6.2 on admission - Transfused 2 units packed red blood cells with 2 on hold - Cycle hemoglobin every 4 hours - Treatment as above Exertional dyspnea/generalized weakness - Suspect related to the above - Should improve after transfusion - Will have PT/OT evaluate the patient for discharge safety to home with advanced age Paroxysmal atrial fibrillation - Patient is chronically anticoagulated with Eliquis - Hold Eliquis for now given GI bleed - Currently in sinus rhythm - Continue home beta-baldev with hold parameters for systolic blood pressure and heart rate - [id number] score: 4 (age +2, gender, HTN) (4.8% stroke risk) Essential hypertension - Patient with some relative hypotension likely related to anemia - Will continue metoprolol with hold parameters - Hold losartan and triamterene/HCTZ for now--> reinitiate once blood pressure is trended and stabilized COPD - Continue home inhalers - No signs of acute exacerbation - Not oxygen dependent at baseline - As needed albuterol Hypothyroidism with history of thyroid cancer - status post thyroidectomy - Continue home levothyroxine Osteoarthritis - History of bilateral total knee arthroplasty - As needed Tylenol available Obesity - BMI is 33.5 - Complicates treatment, prognosis, outcomes DVT prophylaxis - Chemoprophylaxis contraindicated due to GI bleed at presentation - SCDs CODE STATUS - Full code as verified with patient at the time of admission Charges/Coding Visit Charges Inpatient E&M: 51351 Init Hosp L2
[2024-12-31] MEDS: Acetaminophen 500 MG Tablet 1000 MG PO (14:59)
[2024-12-31 15:47] LABS: Hematocrit 19.2 % (37-47); POSITIVE COUNT YES
[2024-12-31 16:05] LABS: Troponin T High Sens 2 HR 10 ng/L (<=14)
[2024-12-31 16:06] LABS: Hemoglobin 5.8 g/dL (12.0-15.0)
[2024-12-31] MEDS: 0.9% Normal Saline (250mL Bag) 250 ML 15 ML IV ×2 (16:31→19:29)
[2024-12-31] MEDS: 0.9% Saline Lock 10 ML Syringe IV (16:32)
--- NOTE | 2024-12-31 19:25 | EX.PCM.CON.G ---
HPI Consult Data Date of Consult: 12/31/24 HPI Narrative Reason for Consultation: GI bleed HPI Narrative: MARIETTA MOREJON, is a 79 F who presents with worsening fatigue and shortness of breath. She has a history of atrial fibrillation/atrial flutter. She also has COPD. In ED she was hypertensive and mildly tachycardic. WBC 9.0, Hgb 6.2 L, Hct 20.1 L, MCV 81.0, Plt Count 330. 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 Symptomatic menopausal or female climacteric states Vaginal enterocele, congenital or acquired Postmenopausal atrophic vaginitis Rectocele Plantar fasciitis Pain in joint, shoulder region Nontoxic multinodular goiter Indeterminate pulmonary nodules Hemorrhage of gastrointestinal tract, unspecified Cystocele, midline Benign neoplasm of colon Colon polyp Dyspnea on exertion Chest pain, unspecified Essential hypertension Ventricular ectopy Premature atrial contraction Paroxysmal atrial flutter Vision problems Thyroid cancer Skin cancer Osteoarthritis IBS (irritable bowel syndrome) Cancer Arthritis Ataxia Home Medications ?Medication ?Instructions ?Recorded ?Last Taken ?Type conjugated estrogens 0.625 mg/gram 1 dose vaginal .COMPLEX dryness 10/09/13 02/08/19 History vaginal cream magnesium oxide 200 mg PO DAILY 10/24/19 12/31/24 History multivitamin 1 cap PO DAILY 10/24/19 12/31/24 History triamterene 37.5 1 tab PO QODAY 07/16/21 12/31/24 History mg-hydrochlorothiazide 25 mg tablet cholecalciferol (vitamin D3) 50 50 mcg PO DAILY 01/07/23 12/31/24 History mcg (2,000 unit) tablet coenzyme Q10 10 mg capsule 10 mg PO ONCE 01/07/23 12/31/24 History levothyroxine 112 mcg tablet 112 mcg PO DAILY 01/07/23 12/30/24 History spacer #1 ea 02/22/23 Unknown Rx spacer #1 ea 03/21/23 Unknown Rx lactobacillus combination no.4 3 3,000 mmu cells PO DAILY supplement 08/15/24 12/31/24 History billion cell capsule (Probiotic) fluticasone propionate 230 2 inh inhalation BID #3 ea 09/18/24 12/31/24 Rx mcg-salmeterol 21 mcg/actuation HFA inhaler (Advair HFA) metoprolol succinate 50 mg 50 mg PO BID 90 days #180 tabs 09/28/24 12/31/24 Rx tablet,extended release 24 hr apixaban 5 mg tablet (Eliquis) 5 mg PO BID 12/31/24 12/31/24 History losartan 100 mg tablet 100 mg PO DAILY 12/31/24 12/31/24 History triamterene 37.5 2 tab PO QODAY 12/31/24 12/30/24 History mg-hydrochlorothiazide 25 mg tablet Allergy/AdvReac Type Severity Reaction Status Date / Time Sulfa (Sulfonamide Allergy Rash Verified 12/31/24 10:33 Antibiotics) codeine AdvReac Nausea Verified 12/31/24 10:33 Family History Father , 1977 Alcoholism Emphysema of lung Sister , 2016 ANGINA Cancer Diabetes CVA (cerebral vascular accident) Thyroid disorder Uterine cancer Brother Cancer Diabetes Mother Diabetes Myocardial infarction Heart disease 1964-59 YEARS Hypertension Surgical History History of cholecystectomy History of thyroidectomy Hx of breast reduction, elective History of bilateral knee replacement Social History Smoking Status: Former smoker how long ago did patient quit smokin alcohol intake: never substance use type: does not use caffeine: Yes Type: coffee Number of servings: 4 and tea ROS Constitutional Constitutional: Denies fatigue, fever(s), poor appetite, weight gain or weight loss Gastrointestinal Gastrointestinal: Denies belching, bloating, change in bowel habits, change in stool character, chewing difficulty, coffee ground emesis, constipation, cramping, diarrhea, dyspepsia, dysphagia, early satiety, excessive flatus, fecal incontinence, heartburn, hematemesis, hematochezia, hemorrhoids, loose stools, melena, nausea, odynophagia, rectal bleeding, tenesmus, vomiting or weight changes Physical Exam Const alert, oriented x3, no apparent distress and healthy appearing General Appearance: cooperative GI normal to inspection, nondistended, normoactive bowel sounds, soft to palpation, non-tender and non-distended Percussion: normal to percussion Rectal Exam: deferred Lab / Micro Data 12/31/24 15:28 12/31/24 11:55 Labs: Laboratory Results - last 24 hr 12/31/24 11:55: WBC Cancelled, Corrected WBC Cancelled, RBC Cancelled, Hgb Cancelled, Hct Cancelled, MCV Cancelled, MCH Cancelled, MCHC Cancelled, RDW Std Deviation Cancelled, RDW Coeff of Carmine Cancelled, Plt Count Cancelled, MPV Cancelled, Immature Gran % (Auto) Cancelled, Neut % (Auto) Cancelled, Lymph % (Auto) Cancelled, [place] % (Auto) Cancelled, Eos % (Auto) Cancelled, Baso % (Auto) Cancelled, Absolute Neuts (auto) Cancelled, Absolute Lymphs (auto) Cancelled, Total Counted Cancelled, Neutrophils % (Manual) Cancelled, Band Neutrophils % Cancelled, Lymphocytes % (Manual) Cancelled, Monocytes % (Manual) Cancelled, Eosinophils % (Manual) Cancelled, Basophils % (Manual) Cancelled, Metamyelocytes % Cancelled, Myelocytes % Cancelled, Promyelocytes % Cancelled, Blast Cells % Cancelled, Plasma Cell % (Manual) Cancelled, Other Cells % Cancelled, Nucleated RBC % Cancelled, Nucleated RBCs/100 WBC Cancelled, Differential Comment Cancelled, Diff Path Review Cancelled, Hypersegmented Neuts Cancelled, Atypical Lymphocytes Cancelled, Reactive Lymphocytes Cancelled, Smudge Cells Cancelled, Toxic Granulation Cancelled, Toxic Vacuolation Cancelled, Dohle Bodies Cancelled, Naz Rods Cancelled, Platelet Estimate Cancelled, Plt Morphology Comment Cancelled, RBC Morphology Cancelled 12/31/24 11:55: RBC Morphology Cancelled, Polychromasia Cancelled, Hypochromasia Cancelled, Basophilic Stippling Cancelled, Anisocytosis Cancelled, Microcytosis Cancelled, Macrocytosis Cancelled, Spherocytes Cancelled, Sickle Cells Cancelled, Target Cells Cancelled, Tear Drop Cells Cancelled, Ovalocytes Cancelled, Stomatocytes Cancelled, [place] Bodies Cancelled, [place] Cells Cancelled, Bite Cells Cancelled, Crenated Cell Cancelled, Acanthocytes (Spur) Cancelled, Rouleaux Cancelled, Schistocytes Cancelled, Sodium 137, Potassium 3.4, Chloride 101, Carbon Dioxide 22.3, Anion Gap 14, BUN 20 H, Creatinine 0.88, Est GFR (MDRD) Non-Af 66, BUN/Creatinine Ratio 23.2 H, Glucose 113 H, Calcium 9.4, Troponin T High Sens 10 12/31/24 12:30: WBC 9.0, RBC 2.48 L, Hgb 6.2 L, Hct 20.1 L, MCV 81.0, MCH 25.0 L, MCHC 30.8 L, RDW Std Deviation 44.1 H, RDW Coeff of Carmine 15.0 H, Plt Count 330, MPV 10.6, Immature Gran % (Auto) 0.600, Neut % (Auto) 72.2 H, Lymph % (Auto) 15.4 L, [place] % (Auto) 10.5 H, Eos % (Auto) 1.1, Baso % (Auto) 0.2, Absolute Neuts (auto) 6.5, Absolute Lymphs (auto) 1.39, Nucleated RBC % 0 12/31/24 14:45: Blood Type O POSITIVE, Antibody Screen NEGATIVE, Crossmatch See Detail 12/31/24 15:28: Hgb 5.8 L*, Hct 19.2 L, Troponin T Hi Sens 2 Hr 10 Rhythm Strip Rhythm Strip: Sinus Rhythm Rate: 75 Ectopy: None Imaging Radiology Impression Chest X-Ray 12/31/24 11:35 IMPRESSION: No acute cardiopulmonary process. Reading Location: [facility] Assessment & Plan Assessment/Plan (1) GIB (gastrointestinal bleeding): PLAN: 79-year-old on Eliquis comes in with melanotic stools discovered to have hemoglobin of 5.8. Likely upper GI bleed versus small bowel bleed versus lower GI bleed. She should undergo an upper endoscopy. She was explained alternatives, risk and benefits including withstanding bleeding, pressure, subs, perforation, need for charge and . Have an ASA of 3. Charges/Coding Visit Charges Inpatient E&M: 79261 Init Hosp L3
[2024-12-31] MEDS: Pantoprazole Sodium 80 MG in 0.9% Normal Saline (50mL Bag) 15 ML 420 MG IV BOLUS (19:29)
[2024-12-31] MEDS: Metoprolol(XL)Succ 50 MG Tablet PO (21:51)
[2024-12-31] MEDS: Budesonide Respules 0.5 MG/2 ML AMPUL.NEB. INHALATION (22:15)
[2024-12-31] MEDS: Albuterol 2.5 MG/3 ML VIAL.NEB. INHALATION (22:15)
[2024-12-31] MEDS: Pantoprazole Sodium 80 MG in 0.9% Normal Saline (100mL Bag) 80 ML 10 MG CONT INF (22:53)
[2025-01-01] VITALS (16 sets, daily range): BP systolic 113–156; BP diastolic 43–76; PULSE 60–78; RESP 16–18; TEMP 36.1–36.8; O2SAT 95–100; BMI 33.9
[2025-01-01 00:08] LABS: Hematocrit 24.5 % (37-47); Hemoglobin 7.8 g/dL (12.0-15.0)
[2025-01-01] MEDS: Levothyroxine 112 MCG Tablet PO ×2 (00:22→21:31)
[2025-01-01 05:44] LABS: Absolute Lymphocyte Count 1.81 X10^3/uL (0.83-4.51); Absolute Neutrophil Count 4.4 X10^3/uL (2.0-7.7); Basophil# 0.02 X10^3/uL; Basophil% 0.3 % (0-1); Eosinophil# 0.15 X10^3/uL; Hematocrit 24.3 % (37-47); Hemoglobin 7.8 g/dL (12.0-15.0); Lymphocyte # 1.81 X10^3/ul (0.83-4.51); Lymphocyte % 24.7 % (19-41); Mean Corp Hgb Conc 32.1 g/dL (32-36); Mean Corpuscular Hgb 25.7 pg (27.0-32.0); Mean Corpuscular Volume 79.9 fL (81-99); Monocyte# 0.91 X10^3/uL; Monocyte% 12.4 % (0-10); NRBC Flagged by Analyzer 0 % (0-5); Neutrophil # 4.39 X10^3/uL (2.7-7.7); Neutrophil % 60.1 % (47-70); Platelet Count 304 K/mm3 (150-450); RBC Distribution Width CV 14.7 % (11.6-14.6); RBC Distribution Width SD 42.9 fl (35.1-43.9); Red Blood Count 3.04 M/mm3 (4.2-5.4); White Blood Count 7.3 K/mm3 (4.4-11.0)
[2025-01-01 06:05] LABS: International Normalized Ratio 1.1; Partial Thromboplast Time 31.9 Seconds (24.1-36.2); Prothrombin Time (Protime)PT. 14.9 SECONDS (11.7-14.9)
[2025-01-01 06:28] LABS: ALB/GLOB Ratio 1.5 RATIO (0.9-2.4); AST(SGOT) 21 U/L (<=31); Alanine Aminotransfer ALT/SGPT 19 U/L (<=34); Albumin, Serum 3.5 g/dL (3.4-4.8); Alkaline Phosphatase 81 U/L (35-104); Anion Gap 9 (5-15); BUN 13 mg/dL (4-19); BUN/Creat Ratio 15.7 RATIO (10-20); Bilirubin, Direct 0.24 mg/dL (0.00-0.30); Calcium,Total 8.9 mg/dL (7.6-11.0); Carbon Dioxide 26.3 mmol/L (21.0-32.0); Chloride 104 mmol/L (98-108); Creatinine, Serum 0.84 mg/dL (0.70-1.20); EST Glomerular Filtration Rate 70 (>60); Globulin 2.4 g/dL (2.2-4.2); Glucose 97 mg/dL (70-99); Phosphorus 3.3 mg/dL (2.7-4.5); Potassium 3.5 mmol/L (3.3-5.1); Protein, Total 5.9 g/dL (5.9-8.4); Sodium Level 140 mmol/L (133-145); Total Bilirubin 0.58 mg/dL (0.00-1.30)
[2025-01-01] MEDS: Pantoprazole Sodium 80 MG in 0.9% Normal Saline (100mL Bag) 80 ML 10 MG CONT INF ×2 (06:34→19:20)
[2025-01-01] MEDS: Albuterol 2.5 MG/3 ML VIAL.NEB. INHALATION ×3 (07:21→23:02)
[2025-01-01] MEDS: Metoprolol(XL)Succ 50 MG Tablet PO ×2 (08:39→21:32)
--- NOTE | 2025-01-01 09:18 | PN.HOSP_ITS ---
Reason for Visit Reason for Visit: Diagnoses Anemia, unspecified (12/31/24) Melena (12/31/24) Gastrointestinal hemorrhage, unspecified (12/31/24) Other forms of dyspnea (12/31/24) Weakness (12/31/24) Unspecified adverse effect of drug or medicament, initial encounter (12/31/24) nursing home (current) use of anticoagulants (12/31/24) Personal history of other diseases of the circulatory system (12/31/24) Subjective Subjective Patient is an 79-year-old lady who presented with fatigue found to have hemoglobin of 5.8 Objective Data Objective Data Vital Signs: Vital Signs Temp Pulse Resp BP Pulse Ox O2 Del Method 98.0 F 71 16 132/64 H 97 Room Air 01/01/25 08:30 01/01/25 08:39 01/01/25 08:30 01/01/25 08:30 01/01/25 08:30 01/01/25 08:30 Oxygen Delivery Method Room Air Weight: 89.6 kg Body Mass Index (BMI) 33.9 Intake & Output: Intake and Output for Last 24 Hours 12/30/24 12/31/24 01/01/25 23:59 23:59 23:59 Intake Total 879.5 / 1329.5 526.83 / 526.83 Balance 879.5 / 1329.5 526.83 / 526.83 Lab / Micro Data 01/01/25 05:25 01/01/25 05:25 Labs: Laboratory Results - last 24 hr 12/31/24 11:55: WBC Cancelled, Corrected WBC Cancelled, RBC Cancelled, Hgb Cancelled, Hct Cancelled, MCV Cancelled, MCH Cancelled, MCHC Cancelled, RDW Std Deviation Cancelled, RDW Coeff of Carmine Cancelled, Plt Count Cancelled, MPV Cancelled, Immature Gran % (Auto) Cancelled, Neut % (Auto) Cancelled, Lymph % (Auto) Cancelled, [place] % (Auto) Cancelled, Eos % (Auto) Cancelled, Baso % (Auto) Cancelled, Absolute Neuts (auto) Cancelled, Absolute Lymphs (auto) Cancelled, Total Counted Cancelled, Neutrophils % (Manual) Cancelled, Band Neutrophils % Cancelled, Lymphocytes % (Manual) Cancelled, Monocytes % (Manual) Cancelled, Eosinophils % (Manual) Cancelled, Basophils % (Manual) Cancelled, Metamyelocytes % Cancelled, Myelocytes % Cancelled, Promyelocytes % Cancelled, Blast Cells % Cancelled, Plasma Cell % (Manual) Cancelled, Other Cells % Cancelled, Nucleated RBC % Cancelled, Nucleated RBCs/100 WBC Cancelled, Differential Comment Cancelled, Diff Path Review Cancelled, Hypersegmented Neuts Cancelled, Atypical Lymphocytes Cancelled, Reactive Lymphocytes Cancelled, Smudge Cells Cancelled, Toxic Granulation Cancelled, Toxic Vacuolation Cancelled, Dohle Bodies Cancelled, Naz Rods Cancelled, Platelet Estimate Cancelled, Plt Morphology Comment Cancelled, RBC Morphology Cancelled 12/31/24 11:55: RBC Morphology Cancelled, Polychromasia Cancelled, Hypochromasia Cancelled, Basophilic Stippling Cancelled, Anisocytosis Cancelled, Microcytosis Cancelled, Macrocytosis Cancelled, Spherocytes Cancelled, Sickle Cells Cancelled, Target Cells Cancelled, Tear Drop Cells Cancelled, Ovalocytes Cancelled, Stomatocytes Cancelled, Winters-Summer Set Bodies Cancelled, [place] Cells Cancelled, Bite Cells Cancelled, Crenated Cell Cancelled, Acanthocytes (Spur) Cancelled, Rouleaux Cancelled, Schistocytes Cancelled, Sodium 137, Potassium 3.4, Chloride 101, Carbon Dioxide 22.3, Anion Gap 14, BUN 20 H, Creatinine 0.88, Est GFR (MDRD) Non-Af 66, BUN/Creatinine Ratio 23.2 H, Glucose 113 H, Calcium 9.4, Troponin T High Sens 10 12/31/24 12:30: WBC 9.0, RBC 2.48 L, Hgb 6.2 L, Hct 20.1 L, MCV 81.0, MCH 25.0 L , MCHC 30.8 L, RDW Std Deviation 44.1 H, RDW Coeff of Carmine 15.0 H, Plt Count 330, MPV 10.6, Immature Gran % (Auto) 0.600, Neut % (Auto) 72.2 H, Lymph % (Auto) 15.4 L, [place] % (Auto) 10.5 H, Eos % (Auto) 1.1, Baso % (Auto) 0.2, Absolute Neuts (auto) 6.5, Absolute Lymphs (auto) 1.39, Nucleated RBC % 0 12/31/24 14:45: Blood Type O POSITIVE, Antibody Screen NEGATIVE, Crossmatch See Detail 12/31/24 15:28: Hgb 5.8 L*, Hct 19.2 L, Troponin T Hi Sens 2 Hr 10 12/31/24 23:45: Hgb 7.8 L, Hct 24.5 L 01/01/25 05:25: WBC 7.3, RBC 3.04 L, Hgb 7.8 L, Hct 24.3 L, MCV 79.9 L, MCH 25.7 L, MCHC 32.1, RDW Std Deviation 42.9, RDW Coeff of Carmine 14.7 H, Plt Count 304, MPV 10.0, Immature Gran % (Auto) 0.500, Neut % (Auto) 60.1, Lymph % (Auto) 24.7, [place] % (Auto) 12.4 H, Eos % (Auto) 2.0, Baso % (Auto) 0.3, Absolute Neuts (auto) 4.4, Absolute Lymphs (auto) 1.81, Nucleated RBC % 0, PT 14.9, INR 1.1, APTT 31.9, Sodium 140, Potassium 3.5, Chloride 104, Carbon Dioxide 26.3, Anion Gap 9, BUN 13, Creatinine 0.84, Estim Creat Clear Calc 57.90, Est GFR (MDRD) Non-Af 70, BUN/Creatinine Ratio 15.7, Glucose 97, Calcium 8.9, Phosphorus 3.3, Magnesium 2.0, Total Bilirubin 0.58, Direct Bilirubin 0.24, AST 21, ALT 19, Alkaline Phosphatase 81, Total Protein 5.9, Albumin 3.5, Globulin 2.4, Albumin/Globulin Ratio 1.5 Radiography Diagnostic Testing: Radiology Impression Chest X-Ray 12/31/24 11:35 IMPRESSION: No acute cardiopulmonary process. Reading Location: [facility] Rhythm Strip Rhythm Strip: Sinus Rhythm Rate: 75 Ectopy: None Physical Exam Narrative GENERAL: cooperative HEENT: Atraumatic; normocephalic EYES; Anicteric, Normal Conjunctiva NECK; supple, normal thyroid, RESPIRATORY: Diminished to auscultation CARDIOVASCULAR: Regular S1 S2, GI: soft, normoactive bowel sounds, : No Renal angle tenderness; EXTREMITIES: No edema, no clubbing, MUSCULOSKELETAL: no muscle wasting NEURO: Awake; no lateralizing signs. SKIN: No Rash PSYCH; Flat affect Assessment & Plan Assessment/Plan (1) Melena: PLAN: Plan Patient is an 79-year-old lady admitted with GI bleed?melena with associated fatigue 1.Acute GI bleed ? Suspected to be secondary to upper GI bleed exacerbated by the use of apixaban. Patient hemoglobin on admission was 5.8. Admitted to a monitored bed patient was transfused with 2 unit PRBC and. Eliquis held started on Protonix drip following a bolus. Consult placed to GI for endoscopy 2. Anemia ? Secondary to acute blood loss anemia management as discussed above; monitoring H&H and transfuse if patient becomes symptomatic or hemoglobin falls below 7 3. Paroxysmal atrial fibrillation ? Rate controlled on systemic anticoagulation with apixaban held given reasons above 4. Essential hypertension ? Patient antihypertensives held on admission given relative hypotension 5. Class I obesity with BMI of 34 ? Complicating care weight loss advised 6. History of thyroid cancer status post thyroidectomy ? Patient is on replacement therapy with levothyroxine 7. Generalized osteoarthritis ? Pain meds as needed 8. DVT prophylaxis ? Chemoprophylaxis contraindicated given patient presentation Time spent in the patient's overall evaluation,decision-making process, review of diagnostic data, adjustment of management, discussion with other providers, nursing nursing and ancillary staff involved in patient's care documentation, 52 Minutes Charges/Coding Visit Charges Inpatient E&M: [id number] [place] [id number]
[2025-01-01 11:54] LABS: Hemoglobin 8.3 g/dL (12.0-15.0)
[2025-01-01] MEDS: 0.9% Saline Lock 10 ML Syringe IV (14:29)
--- NOTE | 2025-01-01 14:34 | NURSING ---
Report called to SAAD Amezcua in [facility]
--- NOTE | 2025-01-01 14:47 | CASEMGMT ---
SAAD CM to pt room at this time for initial assessment. Pt is currently off of the floor for an EGD today. CM to follow.
[2025-01-01] MEDS: Lactated Ringers 1,000 ML 15 ML IV (14:50)
--- NOTE | 2025-01-01 15:19 | PCM.PN.BLA ---
Progress Note Patient has been n.p.o. all day. She has been off anticoagulation. She has not seen any more dark stools. Physical Exam Const alert, oriented x3, no apparent distress and healthy appearing General Appearance: cooperative GI normal to inspection, nondistended, normoactive bowel sounds, soft to palpation, non-tender and non-distended Percussion: normal to percussion Rectal Exam: deferred Assessment & Plan Assessment/Plan (1) GIB (gastrointestinal bleeding): PLAN: 79-year-old on Eliquis comes in with melanotic stools discovered to have hemoglobin of 5.8. Likely upper GI bleed versus small bowel bleed versus lower GI bleed. She should undergo an upper endoscopy. She was explained alternatives, risk and benefits including withstanding bleeding, pressure, subs, perforation, need for charge and . Have an ASA of 3. PLAN: Plan 01/01/2025-all labs reviewed and patient questions and concerns were answered prior to the procedure. She was explained alternatives, risk and benefits include not withstanding bleeding, infection, sepsis, perforation, need for urgent . She will have an ASA of 3. Visit Charges Inpatient E&M: 37476 Subs Hosp L2
--- NOTE | 2025-01-01 15:24 | PCM.PRE.AN2 ---
ASA Classification* ASA Classification ASA Classification: 3 Assessment & Plan Anesthesia* Anesthesia Assessment Anesthesia Assessment: Discussed sedation and/or anesthesia options, risks, benefits, and alternatives with patient/parents/legal guardian/POA. Questions invited. The patient/parents/legal guardian/POA seems to understand and agrees to proceed with anesthesia plan. Reviewed the physical assessment, medical history, allergy history and patient home medications list prior to surgery/procedure/anesthetic and documented any changes. Performed airway and anesthesia risk assessments. Anesthesia Type Anesthesia Type: MAC History Source History Obtained from:: Patient and Chart Anesthesia Focused Assessment* Temperature: 98.2 F Pulse Rate: 67 Blood Pressure: 122/49 Respiratory Rate: 16 Pulse Ox: 99 Oxygen Delivery Method: Room Air Airway Assessment Mouth opens: >3 cm Mallampati Score: II Teeth Condition: Dentures (Patient has full upper dentures.) Neck Range of motion (ROM): Limited ROM (Slight decrease in extension.) Focused Labs Anesthesia Preop lab: CBC WBC 7.3 K/mm3 (4.4-11.0) 01/01/25 05:25 01/01/25 RBC 3.04 M/mm3 (4.2-5.4) L 01/01/25 05:25 01/01/25 Hgb 8.3 g/dL (12.0-15.0) L 01/01/25 11:39 01/01/25 Hct 26.0 % (37-47) L 01/01/25 11:39 01/01/25 Plt Count 304 K/mm3 (150-450) 01/01/25 05:25 01/01/25 CHEMISTRY Potassium 3.5 mmol/L (3.3-5.1) 01/01/25 05:25 01/01/25 Sodium 140 mmol/L (133-145) 01/01/25 05:25 01/01/25 Magnesium 2.0 mg/dL (1.5-2.2) 01/01/25 05:25 01/01/25 Phosphorus 3.3 mg/dL (2.7-4.5) 01/01/25 05:25 01/01/25 BUN 13 mg/dL (4-19) 01/01/25 05:25 01/01/25 Creatinine 0.84 mg/dL (0.70-1.20) 01/01/25 05:25 01/01/25 Glucose 97 mg/dL (70-99) 01/01/25 05:25 01/01/25 TSH 4.640 uIU/mL (0.358-3.740) H 08/15/24 05:06 08/15/24 COAG PT 14.9 SECONDS (11.7-14.9) 01/01/25 05:25 01/01/25 Pre-Assessment Diagnosis/Proposed Procedure Planned Operative Procedure(s): Esophagogastroduodenoscopy with possible cautery and/or injection therapy. Anesthesia History Anesthesia History - equip tech: Anesthesia History - equip tech Hx Hospitalization Any Problems With Anesthesia No 12/31/24 22:58 Cholinesterase deficiency No 12/31/24 22:58 You/Your Family Experience No 12/31/24 22:58 fever (hyperthermia) with Relationship Recent Exposure to Contagious No 12/31/24 22:58 Disease Does patient have nerve No 12/31/24 22:58 stimulator Patient instructed to have No 12/31/24 22:58 device shut off --Does patient have Pacemaker No 01/01/25 14:16 or ICD? When Was Last Pacemaker Check QUESTION #4 FULL TEXT: You/Your Family Experience fever (hyperthermia) with Anesthesia Last Oral Intake Last Oral intake: Last Oral Intake NPO since 00:00 01/01/25 14:16 Meds taken in AM with sips of Yes 01/01/25 14:16 water? Meds patient instructed to 50mg metoprolol at 0839 01/01/25 14:16 take am of surgery PONV PONV - equip tech: PONV - equip tech Female HX of Motion Sickness HX of N/V After Surgery Non-Smoker Duration of Surgery greater than 60 minutes Number of Risk Factors PONV Score Height & Weight Height & Weight: Anesthesia: Height & Weight Height 5 ft 4 in 01/01/25 14:16 Weight: 89.6 kg 01/01/25 14:16 Body Mass Index (BMI) 33.9 01/01/25 14:16 Respiratory Assessment Respiratory Assessment - equip tech: Respiratory Tract Infection Hx - equip tech Hx Respiratory Tract Infection No 12/31/24 22:58 STOP Sleep Apnea STOP Sleep Apnea - equip tech: STOP Sleep Apnea - equip tech Hx Hypertension Yes 01/01/25 12:10 Hx Sleep Apnea No 12/31/24 15:09 CPAP BIPAP Do you snore loudly (louder No 12/31/24 15:09 than talking or can be heard Do you often feel tired/ No 12/31/24 15:09 fatigued/ sleepy during daytime? Has anyone observed you stop No 12/31/24 15:09 breathing during sleep? STOP Results Negative 12/31/24 15:09 QUESTION #5 FULL TEXT : Do you snore loudly (louder than talking or can be heard through closed doors)? Tobacco Use History Tobacco Use History - equip tech: Tobacco Use History - equip tech Tobacco Use Smoking Status Former smoker 12/31/24 15:09 Hx Tobacco Use No 12/31/24 15:09 Years Smoking Packs Smoked per Day Smoking Cessation Date was No - quit smoking greater 12/31/24 15:09 within the last 15 years than 15 years ago Hx Smoking Cessation Date 12/28/99 12/31/24 15:09 Hx Smoking Cessation No 12/31/24 15:09 Counseling Hematologic Medial History Hematologic Hx - equip tech: Hematologic Medical Hx - documentation supervisor Hx of Blood Transfusion No 12/31/24 15:09 Hx of Transfusion in last 3 No 12/31/24 15:09 Months Date of Last Transfusion (if within last 3 months) Ever experience any problems No 12/31/24 15:09 with transfusion(s)? Specify any problems Hx of Preganancy in last 3 No 12/31/24 15:09 Months Nurse Filling Out Transfusion DEJAH 12/31/24 15:09 & Questions: Date: 12/31/24 12/31/24 15:09 Time: 16:25 12/31/24 15:09 Patient unable to answer at this time (ie. confused, unrespo /Reproduction History /Reproductive History - equip tech: /Reproductive Hx- equip tech Hx Now No 12/31/24 22:58 Gestational Age (in weeks): EDC: Hx Hx Para Hx Section SAB No 12/31/24 22:58 Active Medications Active Medications: Current Medications Generic Name Dose Route Start Last Admin Trade Name Freq PRN Reason Stop Dose Admin Acetaminophen 650 mg 12/31/24 15:09 Acetaminophen 325 Mg Tablet PO Q6H PRN PRN Pain 1-10 Or Fever >100.7 Albuterol Sulfate 2.5 mg 12/31/24 15:32 01/01/25 07:22 Albuterol 2.5 Mg/3 Ml Vial.Neb. INHALATION 2.5 mg Q6HWA.RT EDITA Administration Albuterol Sulfate 2.5 mg 12/31/24 15:09 Albuterol 2.5 Mg/3 Ml Vial.Neb. INHALATION Q2H PRN PRN SOB &/OR WHEEZING Budesonide 0.5 mg 12/31/24 15:45 12/31/24 22:15 Budesonide Respules 0.5 Mg/2 Ml Ampul.Neb. INHALATION 0.5 mg Q12H.RT EDITA Administration Cholecalciferol 50 mcg 01/01/25 10:00 Cholecalciferol (Vit D3) 25 Mcg Tablet (1,000 Units) PO DAILY EDITA Pantoprazole Sodium 80 mg/ 100 mls @ 10 mls/hr 12/31/24 15:09 01/01/25 14:30 Sodium Chloride CONT INF 01/03/25 15:10 0 mls/hr Q10H EDITA Infusion Sodium Chloride 250 mls @ 15 mls/hr 12/31/24 15:10 01/01/25 13:00 IV Infused .[id number] PRN Infusion Saline Flush Lactated Ringer's 1,000 mls @ 15 mls/hr 01/01/25 14:45 01/01/25 14:50 IV 15 mls/hr .Q48H EDITA Administration Levothyroxine Sodium 112 mcg 01/01/25 06:00 01/01/25 00:22 Levothyroxine 112 Mcg Tablet PO 112 mcg DAILY@0600 EDITA Administration Metoprolol Succinate 50 mg 12/31/24 22:00 01/01/25 08:39 Metoprolol(Xl)Succ 50 Mg Tablet PO 50 mg BID EDITA Administration Protocol Ondansetron HCl 4 mg 12/31/24 15:09 Ondansetron 4 Mg/2 Ml Vial IV Q8H PRN PRN NAUSEA/VOMITING Pantoprazole Sodium 40 mg 01/04/25 10:00 Pantoprazole Sodium 40 Mg Tablet PO BID EDITA Sodium Chloride 10 - 40 ml 12/31/24 15:10 01/01/25 14:29 0.9% Saline Lock 10 Ml Syringe IV 10 ml UD PRN Administration SALINE FLUSH FORMERLY [facility], 1928–1983 Medical History Other nonspecific abnormal finding of lung field 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 Symptomatic menopausal or female climacteric states Vaginal enterocele, congenital or acquired Postmenopausal atrophic vaginitis Rectocele Plantar fasciitis Pain in joint, shoulder region Nontoxic multinodular goiter Indeterminate pulmonary nodules Hemorrhage of gastrointestinal tract, unspecified Cystocele, midline Benign neoplasm of colon Colon polyp Dyspnea on exertion Chest pain, unspecified Essential hypertension Ventricular ectopy Premature atrial contraction Paroxysmal atrial flutter Vision problems Thyroid cancer Skin cancer Osteoarthritis IBS (irritable bowel syndrome) Cancer Arthritis Ataxia Home Medications ?Medication ?Instructions ?Recorded ?Last Taken ?Type conjugated estrogens 0.625 mg/gram 1 dose vaginal .COMPLEX dryness 10/09/13 02/08/19 History vaginal cream magnesium oxide 200 mg PO DAILY 10/24/19 12/31/24 History multivitamin 1 cap PO DAILY 10/24/19 12/31/24 History triamterene 37.5 1 tab PO QODAY 07/16/21 12/31/24 History mg-hydrochlorothiazide 25 mg tablet cholecalciferol (vitamin D3) 50 50 mcg PO DAILY 01/07/23 12/31/24 History mcg (2,000 unit) tablet coenzyme Q10 10 mg capsule 10 mg PO ONCE 01/07/23 12/31/24 History levothyroxine 112 mcg tablet 112 mcg PO DAILY 01/07/23 12/30/24 History spacer #1 ea 02/22/23 Unknown Rx spacer #1 ea 03/21/23 Unknown Rx lactobacillus combination no.4 3 3,000 mmu cells PO DAILY supplement 08/15/24 12/31/24 History billion cell capsule (Probiotic) fluticasone propionate 230 2 inh inhalation BID #3 ea 09/18/24 12/31/24 Rx mcg-salmeterol 21 mcg/actuation HFA inhaler (Advair HFA) metoprolol succinate 50 mg 50 mg PO BID 90 days #180 tabs 09/28/24 01/01/25 Rx tablet,extended release 24 hr apixaban 5 mg tablet (Eliquis) 5 mg PO BID 12/31/24 12/31/24 History losartan 100 mg tablet 100 mg PO DAILY 12/31/24 12/31/24 History triamterene 37.5 2 tab PO QODAY 12/31/24 12/30/24 History mg-hydrochlorothiazide 25 mg tablet Allergy/AdvReac Type Severity Reaction Status Date / Time Sulfa (Sulfonamide Allergy Rash Verified 12/31/24 10:33 Antibiotics) codeine AdvReac Nausea Verified 12/31/24 10:33 Family History Father , 1977 Alcoholism Emphysema of lung Sister , 2016 ANGINA Cancer Diabetes CVA (cerebral vascular accident) Thyroid disorder Uterine cancer Brother Cancer Diabetes Mother Diabetes Myocardial infarction Heart disease 1964-59 YEARS Hypertension Surgical History History of cholecystectomy History of thyroidectomy Hx of breast reduction, elective History of bilateral knee replacement Social History Smoking Status: Former smoker how long ago did patient quit smokin alcohol intake: never substance use type: does not use caffeine: Yes Type: coffee Number of servings: 4 and tea Review of Systems (Anesthesia) ROS Narrative System reviewed and no additional complaints, except as documented.
--- NOTE | 2025-01-01 15:50 | CHAPLAIN ---
Type of Pastoral Visit __x_ Initial Visit ___ Follow-up Visit ___ On-call Visit ___ General Patient Visit ___ Spiritual Assessment ___ Family Conference ___ Bereavement ___ Rapid Response ___ Code Blue ___ Other (describe below) Pastoral Care Referral From _x__ Patient ___ Family ___ Nurse ___ Physician ___ On Call ___ [place]ana Attendant ___ Other (describe below) Sacrament/Intervention _x__ Active listening ___ Anointing ___ Gnosticist ___ Bereavement ___ Communion _x__ Breanna exploration ___ _x__ Life review _x__ Prayer ___ Reconciliation ___ Sacrament of Sick ___ Supportive presence ___ Wedding ___ Other (describe below) Pastoral Comments patient is expressive about her situation, waiting on the testing, how her spouse has done since he was a patient seen by this pipeline construction inspector, and her support system which includes a good breanna community; pt welcomes prayer
--- NOTE | 2025-01-01 16:00 | EGD_PTH ---
PATIENT: MARIETTA MOREJON LOC: [facility] U#:[id number] AGE/SX: 79/F ROOM: [facility] RE12/31/[address]: Dr. Carrillo Strong MD : [id number] BED: 1 DIS: 01/04/2025 SPEC #: [id number] RECD: 01/02/25 11:04 STATUS: ОЛЬГА COOL #: [id number] ARIS: 01/01/25 16:[address]: Austin Jaimes DEPT: SURGICAL PATHOLOGY RECD BY: Bryon Gruber ENTERED: 01/02/25 11:15 SP TYPE: EGD BIOPSY OT DR: MD Dr. Myranda Sorto DO Dr. Liza D Talampas, MD Tissues: A - Duodenum, NOS B - Esophagus, NOS Procedures: Surgery Specimen Level IV HEADER OPERATION: EGD with biopsies PRE-OP DIAGNOSIS: Gastrointestinal bleeding TISSUE SUBMITTED: A- Duodenum biopsy, B- Distal esophagus biopsy MICROSCOPIC DIAGNOSIS A. 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 Esophagus, distal: * Benign squamous epithelium * Oxynto-cardiac mucosa with chronic inflammation * No goblet cell metaplasia is identified MICROSCOPIC DESCRIPTION Slides are reviewed. GROSS DESCRIPTION A. Received in formalin in a container labeled with the patient's name, date of , and duodenum biopsy are 2 chaudhari-pink fragments of mucosal tissue, each measuring 0.5 x 0.2 x 0.2 cm. Submitted in toto in A1. B. Received in formalin in a container labeled with the patient's name, date of , and distal esophagus biopsy are 2 chaudhari-pink fragments of mucosal tissue, each measuring 0.5 x 0.3 x 0.2 cm. Submitted in toto in B1. [facility] 01-02-2025 CPT:49090l9
--- NOTE | 2025-01-01 16:13 | PCM.PN.BLA ---
Progress Note Patient did have 2 episodes of melena overnight. She denies any abdominal pain but does complain of some cramping and nausea. Physical Exam Const alert, oriented x3, no apparent distress and healthy appearing General Appearance: cooperative GI normal to inspection, nondistended, normoactive bowel sounds, soft to palpation, non-tender and non-distended Percussion: normal to percussion Rectal Exam: deferred Assessment & Plan Assessment/Plan (1) GIB (gastrointestinal bleeding): PLAN: 79-year-old on Eliquis comes in with melanotic stools discovered to have hemoglobin of 5.8. Likely upper GI bleed versus small bowel bleed versus lower GI bleed. She should undergo an upper endoscopy. She was explained alternatives, risk and benefits including withstanding bleeding, pressure, subs, perforation, need for charge and . Have an ASA of 3. PLAN: Plan 01/01/2025-all labs reviewed and patient questions and concerns were answered prior to the procedure. She was explained alternatives, risk and benefits include not withstanding bleeding, infection, sepsis, perforation, need for urgent . She will have an ASA of 3. Visit Charges Inpatient E&M: 14701 Subs Hosp L2
--- NOTE | 2025-01-01 16:22 | PCM.POST.ANE ---
Anesthesia: Postop Eval I Current Vital Signs Temperature: 97 F Pulse Rate: 65 Blood Pressure: 123/76 Respiratory Rate: 16 Pulse Ox: 100 Oxygen Delivery Method: Room Air Assessment Airway patent: Yes Spontaneous unlabored respirations: Yes Mental status: Awake nausea: No Vomiting: No Anesthesia Complication: No Fluid Hydration Crystalloid volume administer (ml): 200 Total IV fluid infused: 200 Progress Note Anesthesia document: Postop Eval 1 completed: Yes
--- NOTE | 2025-01-01 16:37 | OP.EGD_ITS ---
Patient Name: Tamera Temple Procedure Date: 01/01/2025 4:14 PM Date of : 1945 Age: 79 Procedure: Upper GI endoscopy Indications: Iron deficiency anemia, Melena, Occult blood in stool, Recent gastrointestinal bleeding Providers: Austin Jaimes DO Medicines: Monitored Anesthesia Care Patient Profile: This is an 79 year old female. Refer to note in patient chart for documentation of history and physical. Patient has symptoms. Complications: No immediate complications. Procedure: Pre-Anesthesia Assessment: - Prior to the procedure, a History and Physical was performed, and patient medications and allergies were reviewed. The patient is competent. The risks and benefits of the procedure and the sedation options and risks were discussed with the patient. All questions were answered and informed consent was obtained. Patient identification and proposed procedure were verified by the physician. Mental Status Examination: alert and oriented. Airway Examination: normal oropharyngeal airway and neck mobility. Respiratory Examination: clear to auscultation. CV Examination: normal. ASA Grade Assessment: II - A patient with mild systemic disease. After reviewing the risks and benefits, the patient was deemed in satisfactory condition to undergo the procedure. The anesthesia plan was to use monitored anesthesia care (MAC). Immediately prior to administration of medications, the patient was re-assessed for adequacy to receive sedatives. The heart rate, respiratory rate, oxygen saturations, blood pressure, adequacy of pulmonary ventilation, and response to care were monitored throughout the procedure. The physical status of the patient was re-assessed after the procedure. After obtaining informed consent, the endoscope was passed under direct vision. Throughout the procedure, the patient's blood pressure, pulse, and oxygen saturations were monitored continuously. The Endoscope was introduced through the mouth, and advanced to the fourth part of the duodenum. Small bowel enteroscopy was deemed necessary. The upper GI endoscopy was accomplished without difficulty. The patient tolerated the procedure well. Scope In: 4:27:40 PM Scope Out: 4:30:48 PM Total Procedure Duration Time 0 hours 3 minutes 8 seconds Findings: There were esophageal mucosal changes suspicious for short-segment Lozada's esophagus present in the lower third of the esophagus. The maximum longitudinal extent of these mucosal changes was 3 cm in length. Mucosa was biopsied with a cold forceps for histology in a targeted manner at intervals of 1 cm in the lower third of the esophagus. One specimen bottle was sent to pathology. Verification of patient identification for the specimen was done. Estimated blood loss was minimal. A small hiatal hernia was present. No other significant abnormalities were identified in a careful examination of the stomach. There was a medium-sized lipoma in the gastric body. Patchy mild mucosal changes characterized by erosion and granularity were found in the first portion of the duodenum. Biopsies were taken with a cold forceps for histology. Verification of patient identification for the specimen was done. Estimated blood loss was minimal. Impression: - Esophageal mucosal changes suspicious for short-segment Lozada's esophagus. Biopsied. - Small hiatal hernia. - Gastric lipoma. - Mucosal changes in the duodenum. Biopsied. Recommendation: - [facility]. - Clear liquid diet. - Continue present medications. - Await pathology results. - Prep for colonoscopy Procedure Code(s): --- Professional --- 45864, Small intestinal endoscopy, enteroscopy beyond second portion of duodenum, not including ileum; with biopsy, single or multiple CPT copyright 2021 [employer]. All rights reserved. The codes documented in this report are preliminary and upon program instructor review may be revised to meet current compliance requirements. Austin Jaimes DO 01/01/2025 4:37:16 PM This report has been signed electronically. Number of Addenda: 0 Note Initiated On: 01/01/2025 4:14 PM
--- NOTE | 2025-01-01 16:37 | OP.CCLET_ITS ---
01/01/2025 Pauline Alcaraz [address] [place] [address] Re : Upper GI endoscopy procedure for Tamera Temple Dear Dr. Alcaraz This procedure was performed on Wednesday, January 01, 2025. My impressions and recommendations are as follows: Impressions : - Esophageal mucosal changes suspicious for short-segment Lozada's esophagus. Biopsied. - Small hiatal hernia. - Gastric lipoma. - Mucosal changes in the duodenum. Biopsied. Recommendations : - [facility]. - Clear liquid diet. - Continue present medications. - Await pathology results. - Prep for colonoscopy My findings are described in the full procedure note, which is enclosed. If I can be of further assistance, please feel free to contact me at . Sincerely, Austin Jaimes, 01/01/2025 4:37:16 PM This report has been signed electronically.
--- NOTE | 2025-01-01 16:49 | POSTOPAN2_ITS ---
Anesthesia Postop Eval I Sum Postop Eval Completion status Anesthesia document: Postop Eval 1 completed: Yes Anesthesia Postop Eval I Summary Anesthesia Postop Eval I Summary: Anesthesia Postop Eval I: Assessment Summary Airway patent Yes 01/01/25 16:32 YOUTH [email or web address] Spontaneous unlabored Yes 01/01/25 16:32 YOUTH [email or web address] respirations Mental status Awake 01/01/25 16:32 YOUTH [email or web address] nausea No 01/01/25 16:32 YOUTH [email or web address] Vomiting No 01/01/25 16:32 YOUTH [email or web address] Anesthesia Postop Eval I: Fluid Summary Crystalloid volume administer 200 01/01/25 16:32 YOUTH [email or web address] (ml) Colloids volume administered ( ml) Blood Product volume administered (ml) Total IV fluid infused 200 01/01/25 16:32 YOUTH [email or web address] Anesthesia Postop Eval I: Summary Notes Anesthesia Complication No 01/01/25 16:32 YOUTH [email or web address] Anesthesia Complication Comment: Post-operative progress note Anesthesia: Postop Eval II Evaluation Mental status: Awake and Calm Pain Level: 0 nausea: No Vomiting: No Complications Anesthesia Complication: No
--- NOTE | 2025-01-01 16:49 | PCM.POSTANE2 ---
Anesthesia Postop Eval I Sum Postop Eval Completion status Anesthesia document: Postop Eval 1 completed: Yes Anesthesia Postop Eval I Summary Anesthesia Postop Eval I Summary: Anesthesia Postop Eval I: Assessment Summary Airway patent Yes 01/01/25 16:32 [email or web address] Spontaneous unlabored Yes 01/01/25 16:32 SPARE [email or web address] respirations Mental status Awake 01/01/25 16:32 SPARE [email or web address] nausea No 01/01/25 16:32 SPARE [email or web address] Vomiting No 01/01/25 16:32 SPARE [email or web address] Anesthesia Postop Eval I: Fluid Summary Crystalloid volume administer 200 01/01/25 16:32 SPARE [email or web address] (ml) Colloids volume administered ( ml) Blood Product volume administered (ml) Total IV fluid infused 200 01/01/25 16:32 [email or web address] Anesthesia Postop Eval I: Summary Notes Anesthesia Complication No 01/01/25 16:32 [email or web address] Anesthesia Complication Comment: Post-operative progress note Anesthesia: Postop Eval II Evaluation Mental status: Awake and Calm Pain Level: 0 nausea: No Vomiting: No Complications Anesthesia Complication: No
[2025-01-01] MEDS: Bisacodyl 5 MG Tablet 20 MG PO (17:39)
[2025-01-01] MEDS: Polyethylene Glycol 3350 BOWEL PREP PO (19:01)
[2025-01-01] MEDS: Budesonide Respules 0.5 MG/2 ML AMPUL.NEB. INHALATION (23:01)
[2025-01-02] VITALS (13 sets, daily range): BP systolic 105–157; BP diastolic 48–68; PULSE 62–83; RESP 14–17; TEMP 36.5–37.1; O2SAT 97–100; BMI 32.8
[2025-01-02] MEDS: Pantoprazole Sodium 80 MG in 0.9% Normal Saline (100mL Bag) 80 ML 10 MG CONT INF (05:09)
[2025-01-02 05:40] LABS: Absolute Lymphocyte Count 1.68 X10^3/uL (0.83-4.51); Absolute Neutrophil Count 6.2 X10^3/uL (2.0-7.7); Basophil# 0.02 X10^3/uL; Basophil% 0.2 % (0-1); Eosinophil# 0.18 X10^3/uL; Hematocrit 25.2 % (37-47); Hemoglobin 8.1 g/dL (12.0-15.0); Lymphocyte # 1.68 X10^3/ul (0.83-4.51); Lymphocyte % 18.9 % (19-41); Mean Corp Hgb Conc 32.1 g/dL (32-36); Mean Corpuscular Hgb 25.6 pg (27.0-32.0); Mean Corpuscular Volume 79.7 fL (81-99); Mean Platelet Vol. 9.5 fl (6.2-12.0); Monocyte# 0.82 X10^3/uL; Monocyte% 9.2 % (0-10); NRBC Flagged by Analyzer 0 % (0-5); Neutrophil # 6.17 X10^3/uL (2.7-7.7); Neutrophil % 69.4 % (47-70); Platelet Count 321 K/mm3 (150-450); RBC Distribution Width CV 14.8 % (11.6-14.6); RBC Distribution Width SD 43.6 fl (35.1-43.9); Red Blood Count 3.16 M/mm3 (4.2-5.4); White Blood Count 8.9 K/mm3 (4.4-11.0)
[2025-01-02 06:12] LABS: International Normalized Ratio 1.1
[2025-01-02 06:22] LABS: AST(SGOT) 22 U/L (<=31); Alanine Aminotransfer ALT/SGPT 20 U/L (<=34); Albumin, Serum 3.6 g/dL (3.4-4.8); Alkaline Phosphatase 81 U/L (35-104); Anion Gap 12 (5-15); BUN 11 mg/dL (4-19); BUN/Creat Ratio 11.8 RATIO (10-20); Bilirubin, Direct 0.15 mg/dL (0.00-0.30); Calcium,Total 8.6 mg/dL (7.6-11.0); Chloride 102 mmol/L (98-108); Creatinine, Serum 0.91 mg/dL (0.70-1.20); EST Glomerular Filtration Rate 64 (>60); Estimated Creatinine Clearance 53.44 ml/min (50-250); Globulin 2.7 g/dL (2.2-4.2); Glucose 104 mg/dL (70-99); Potassium 3.3 mmol/L (3.3-5.1); Protein, Total 6.3 g/dL (5.9-8.4); Sodium Level 139 mmol/L (133-145); Total Bilirubin 0.39 mg/dL (0.00-1.30)
[2025-01-02] MEDS: Albuterol 2.5 MG/3 ML VIAL.NEB. INHALATION ×2 (07:06→21:45)
[2025-01-02] MEDS: Budesonide Respules 0.5 MG/2 ML AMPUL.NEB. INHALATION ×2 (07:07→21:45)
--- NOTE | 2025-01-02 07:35 | PN.HOSP_ITS ---
Reason for Visit Reason for Visit: Diagnoses Anemia, unspecified (12/31/24) Melena (12/31/24) Gastrointestinal hemorrhage, unspecified (12/31/24) Other forms of dyspnea (12/31/24) Weakness (12/31/24) Unspecified adverse effect of drug or medicament, initial encounter (12/31/24) senior living (current) use of anticoagulants (12/31/24) Personal history of other diseases of the circulatory system (12/31/24) Subjective Subjective Patient underwent EGD the day prior findings and recommendation as below. Patient currently being prepped for colonoscopy Objective Data Objective Data Vital Signs: Vital Signs Temp Pulse Resp BP Pulse Ox O2 Del Method 98 F 69 16 118/48 L 98 Room Air 01/02/25 04:32 01/02/25 07:07 01/02/25 07:07 01/02/25 04:32 01/02/25 07:07 01/02/25 07:07 Oxygen Delivery Method Room Air Weight: 86.7 kg Body Mass Index (BMI) 32.8 Intake & Output: Intake and Output for Last 24 Hours 12/31/24 01/01/25 01/02/25 23:59 23:59 23:59 Intake Total 879.5 / 1329.5 926.83 / 926.83 98.17 / 98.17 Balance 879.5 / 1329.5 926.83 / 926.83 98.17 / 98.17 Lab / Micro Data 01/02/25 05:30 01/02/25 05:30 Labs: Laboratory Results - last 24 hr 01/01/25 11:39: Hgb 8.3 L, Hct 26.0 L 01/02/25 05:30: WBC 8.9, RBC 3.16 L, Hgb 8.1 L, Hct 25.2 L, MCV 79.7 L, MCH 25.6 L, MCHC 32.1, RDW Std Deviation 43.6, RDW Coeff of Carmine 14.8 H, Plt Count 321, MPV 9.5, Immature Gran % (Auto) 0.300, Neut % (Auto) 69.4, Lymph % (Auto) 18.9 L , [place] % (Auto) 9.2, Eos % (Auto) 2.0, Baso % (Auto) 0.2, Absolute Neuts (auto) 6.2, Absolute Lymphs (auto) 1.68, Nucleated RBC % 0, PT 14.0, INR 1.1, Sodium 139, Potassium 3.3, Chloride 102, Carbon Dioxide 25.0, Anion Gap 12, BUN 11, Creatinine 0.91, Estim Creat Clear Calc 53.44, Est GFR (MDRD) Non-Af 64, BUN/Creatinine Ratio 11.8, Glucose 104 H, Calcium 8.6, Total Bilirubin 0.39, Direct Bilirubin 0.15, AST 22, ALT 20, Alkaline Phosphatase 81, Total Protein 6.3, Albumin 3.6, Globulin 2.7 Rhythm Strip Rhythm Strip: Sinus Rhythm Rate: 75 Ectopy: None Physical Exam Narrative GENERAL: cooperative HEENT: Atraumatic; normocephalic EYES; Anicteric, Normal Conjunctiva NECK; supple, normal thyroid, RESPIRATORY: Diminished to auscultation CARDIOVASCULAR: Regular S1 S2, GI: soft, normoactive bowel sounds, : No Renal angle tenderness; EXTREMITIES: No edema, no clubbing, MUSCULOSKELETAL: no muscle wasting NEURO: Awake; no lateralizing signs. SKIN: No Rash PSYCH; Flat affect Assessment & Plan Assessment/Plan (1) Melena: PLAN: Plan Patient is an 79-year-old lady admitted with GI bleed?melena with associated fatigue 1.Acute GI bleed ? Suspected to be secondary to upper GI bleed exacerbated by the use of apixaban. Patient hemoglobin on admission was 5.8. Admitted to a monitored bed patient was transfused with 2 unit PRBC and. Eliquis held started on Protonix drip following a bolus. Consult placed to GI for endoscopy ? 01/02/2025; patient underwent EGD by Dr. 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 Biopsied. - Small hiatal hernia. - Gastric lipoma. - Mucosal changes in the duodenum. Biopsied. Recommendations : - [facility]. - Clear liquid diet. - Continue present medications. - Await pathology results. - Prep for colonoscopy ? Patient scheduled to undergo colonoscopy 2. Anemia ? Secondary to acute blood loss anemia management as discussed above; monitoring H&H and transfuse if patient becomes symptomatic or hemoglobin falls below 7 ? 01/02/2025; patient hemoglobin up to 8.1 following blood transfusion. Will repeat H&H in a.m. 3. Paroxysmal atrial fibrillation ? Rate controlled on systemic anticoagulation with apixaban held given reasons above 4. Essential hypertension ? Patient antihypertensives held on admission given relative hypotension 5. Class I obesity with BMI of 34 ? Complicating care weight loss advised 6. History of thyroid cancer status post thyroidectomy ? Patient is on replacement therapy with levothyroxine 7. Generalized osteoarthritis ? Pain meds as needed 8. DVT prophylaxis ? Chemoprophylaxis contraindicated given patient presentation Time spent in the patient's overall evaluation,decision-making process, review of diagnostic data, adjustment of management, discussion with other providers, nursing nursing and ancillary staff involved in patient's care documentation, 52 Minutes Charges/Coding Visit Charges Inpatient E&M: 29942 Subs Hosp L2
--- NOTE | 2025-01-02 11:28 | NURSING ---
Report called to ZAFAR NASH
--- NOTE | 2025-01-02 11:40 | PCM.PRE.AN2 ---
ASA Classification* ASA Classification ASA Classification: 3 Assessment & Plan Anesthesia* Anesthesia Assessment Anesthesia Assessment: Discussed sedation and/or anesthesia options, risks, benefits, and alternatives with patient/parents/legal guardian/POA. Questions invited. The patient/parents/legal guardian/POA seems to understand and agrees to proceed with anesthesia plan. Reviewed the physical assessment, medical history, allergy history and patient home medications list prior to surgery/procedure/anesthetic and documented any changes. Performed airway and anesthesia risk assessments. Anesthesia Type Anesthesia Type: General History Source History Obtained from:: Patient and Chart Anesthesia Focused Assessment* Temperature: 97.7 F Pulse Rate: 66 Blood Pressure: 108/55 Respiratory Rate: 16 Pulse Ox: 100 Airway Assessment Mouth opens: >3 cm Mallampati Score: II Teeth Condition: Dentures and Upper Neck Range of motion (ROM): Limited ROM Focused Labs Anesthesia Preop lab: CBC WBC 8.9 K/mm3 (4.4-11.0) 01/02/25 05:01/02/25 RBC 3.16 M/mm3 (4.2-5.4) L 01/02/25 05:30 01/02/25 Hgb 8.1 g/dL (12.0-15.0) L 01/02/25 05:30 01/02/25 Hct 25.2 % (37-47) L 01/02/25 05:30 01/02/25 Plt Count 321 K/mm3 (150-450) 01/02/25 05:30 01/02/25 CHEMISTRY Potassium 3.3 mmol/L (3.3-5.1) 01/02/25 05:30 01/02/25 Sodium 139 mmol/L (133-145) 01/02/25 05:30 01/02/25 Magnesium 2.0 mg/dL (1.5-2.2) 01/01/25 05:25 01/01/25 Phosphorus 3.3 mg/dL (2.7-4.5) 01/01/25 05:25 01/01/25 BUN 11 mg/dL (4-19) 01/02/25 05:30 01/02/25 Creatinine 0.91 mg/dL (0.70-1.20) 01/02/25 05:30 01/02/25 Glucose 104 mg/dL (70-99) H 01/02/25 05:30 01/02/25 TSH 4.640 uIU/mL (0.358-3.740) H 08/15/24 05:06 08/15/24 COAG PT 14.0 SECONDS (11.7-14.9) 01/02/25 05:30 01/02/25 Pre-Assessment Diagnosis/Proposed Procedure Planned Operative Procedure(s): Esophagogastroduodenoscopy with possible cautery and/or injection therapy. 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 When Was Last Pacemaker Check QUESTION #4 FULL TEXT: You/Your Family Experience fever (hyperthermia) with Anesthesia Last Oral Intake Last Oral intake: Last Oral Intake NPO since 00:00 01/02/25 09:17 Meds taken in AM with sips of No 01/02/25 09:17 water? Meds patient instructed to 50mg metoprolol at 0839 01/01/25 14:16 take am of surgery PONV PONV - automotive manufacturer: PONV - automotive manufacturer Female HX of Motion Sickness HX of N/V After Surgery Non-Smoker Duration of Surgery greater than 60 minutes Number of Risk Factors PONV Score Height & Weight Height & Weight: Anesthesia: Height & Weight Height 5 ft 4 in 01/02/25 11:11 Weight: 86.7 kg 01/02/25 11:11 Body Mass Index (BMI) 32.8 01/02/25 09:17 Respiratory Assessment Respiratory Assessment - automotive manufacturer: Respiratory Tract Infection Hx - automotive manufacturer Hx Respiratory Tract Infection No 01/01/25 22:49 STOP Sleep Apnea STOP Sleep Apnea - automotive manufacturer: STOP Sleep Apnea - automotive manufacturer Hx Hypertension Yes 01/01/25 12:10 Hx Sleep Apnea No 12/31/24 15:09 CPAP BIPAP Do you snore loudly (louder No 12/31/24 15:09 than talking or can be heard Do you often feel tired/ No 12/31/24 15:09 fatigued/ sleepy during daytime? Has anyone observed you stop No 12/31/24 15:09 breathing during sleep? STOP Results Negative 01/01/25 16:35 QUESTION #5 FULL TEXT : Do you snore loudly (louder than talking or can be heard through closed doors)? 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 Specify any problems Hx of Preganancy in last 3 No 12/31/24 15:09 Months Nurse Filling Out Transfusion DEJAH 12/31/24 15:09 & Questions: Date: 12/31/24 12/31/24 15:09 Time: 16:12/31/24 15:09 Patient unable to answer at this time (ie. confused, unrespo /Reproduction History /Reproductive History - automotive manufacturer: /Reproductive Hx- automotive manufacturer Hx Now No 01/01/25 22:49 Gestational Age (in weeks): EDC: Hx Hx Para Hx Section SAB No 01/01/25 22:49 Active Medications Active Medications: Current Medications Generic Name Dose Route Start Last Admin Trade Name Freq PRN Reason Stop Dose Admin Acetaminophen 650 mg 12/31/24 15:09 Acetaminophen 325 Mg Tablet PO Q6H PRN PRN Pain 1-10 Or Fever >100.7 Albuterol Sulfate 2.5 mg 12/31/24 15:32 01/02/25 07:06 Albuterol 2.5 Mg/3 Ml Vial.Neb. INHALATION 2.5 mg Q6HWA.RT EDITA Administration Albuterol Sulfate 2.5 mg 12/31/24 15:09 Albuterol 2.5 Mg/3 Ml Vial.Neb. INHALATION Q2H PRN PRN SOB &/OR WHEEZING Budesonide 0.5 mg 12/31/24 15:45 01/02/25 07:07 Budesonide Respules 0.5 Mg/2 Ml Ampul.Neb. INHALATION 0.5 mg Q12H.RT EDITA Administration Cholecalciferol 50 mcg 01/01/25 10:00 01/01/25 16:27 Cholecalciferol (Vit D3) 25 Mcg Tablet (1,000 Units) PO Not Given DAILY EDITA Pantoprazole Sodium 80 mg/ 100 mls @ 10 mls/hr 12/31/24 15:09 01/02/25 11:27 Sodium Chloride CONT INF 01/03/25 15:10 0 mls/hr Q10H EDITA Infusion Sodium Chloride 250 mls @ 15 mls/hr 12/31/24 15:10 01/01/25 13:00 IV Infused .[id number] PRN Infusion Saline Flush Lactated Ringer's 1,000 mls @ 15 mls/hr 01/01/25 14:45 01/01/25 18:10 IV Infused .Q48H EDITA Infusion Lactated Ringer's 1,000 mls @ 15 mls/hr 01/02/25 11:45 IV .Q48H EDITA Levothyroxine Sodium 112 mcg 01/02/25 22:00 Levothyroxine 112 Mcg Tablet PO QHS EDITA Metoprolol Succinate 50 mg 12/31/24 22:00 01/02/25 11:33 Metoprolol(Xl)Succ 50 Mg Tablet PO Not Given BID [facility] Protocol Ondansetron HCl 4 mg 12/31/24 15:09 Ondansetron 4 Mg/2 Ml Vial IV Q8H PRN PRN NAUSEA/VOMITING Pantoprazole Sodium 40 mg 01/04/25 10:00 Pantoprazole Sodium 40 Mg Tablet PO BID EDITA Sodium Chloride 10 - 40 ml 12/31/24 15:10 01/01/25 14:29 0.9% Saline Lock 10 Ml Syringe IV 10 ml UD PRN Administration SALINE FLUSH [facility] Medical History Other nonspecific abnormal finding of lung field 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 Symptomatic menopausal or female climacteric states Vaginal enterocele, congenital or acquired Postmenopausal atrophic vaginitis Rectocele Plantar fasciitis Pain in joint, shoulder region Nontoxic multinodular goiter Indeterminate pulmonary nodules Hemorrhage of gastrointestinal tract, unspecified Cystocele, midline Benign neoplasm of colon Colon polyp Dyspnea on exertion Chest pain, unspecified Essential hypertension Ventricular ectopy Premature atrial contraction Paroxysmal atrial flutter Vision problems Thyroid cancer Skin cancer Osteoarthritis IBS (irritable bowel syndrome) Cancer Arthritis Ataxia Home Medications ?Medication ?Instructions ?Recorded ?Last Taken ?Type conjugated estrogens 0.625 mg/gram 1 dose vaginal .COMPLEX dryness 10/09/13 02/08/19 History vaginal cream magnesium oxide 200 mg PO DAILY 10/24/19 12/31/24 History multivitamin 1 cap PO DAILY 10/24/19 12/31/24 History triamterene 37.5 1 tab PO QODAY 07/16/21 12/31/24 History mg-hydrochlorothiazide 25 mg tablet cholecalciferol (vitamin D3) 50 50 mcg PO DAILY 01/07/23 12/31/24 History mcg (2,000 unit) tablet coenzyme Q10 10 mg capsule 10 mg PO ONCE 01/07/23 12/31/24 History levothyroxine 112 mcg tablet 112 mcg PO DAILY 01/07/23 12/30/24 History spacer #1 ea 02/22/23 Unknown Rx spacer #1 ea 03/21/23 Unknown Rx lactobacillus combination no.4 3 3,000 mmu cells PO DAILY supplement 08/15/24 12/31/24 History billion cell capsule (Probiotic) fluticasone propionate 230 2 inh inhalation BID #3 ea 09/18/24 12/31/24 Rx mcg-salmeterol 21 mcg/actuation HFA inhaler (Advair HFA) metoprolol succinate 50 mg 50 mg PO BID 90 days #180 tabs 09/28/24 01/01/25 Rx tablet,extended release 24 hr apixaban 5 mg tablet (Eliquis) 5 mg PO BID 12/31/24 12/31/24 History losartan 100 mg tablet 100 mg PO DAILY 12/31/24 12/31/24 History triamterene 37.5 2 tab PO QODAY 12/31/24 12/30/24 History mg-hydrochlorothiazide 25 mg tablet Allergy/AdvReac Type Severity Reaction Status Date / Time Sulfa (Sulfonamide Allergy Rash Verified 12/31/24 10:33 Antibiotics) codeine AdvReac Nausea Verified 12/31/24 10:33 Family History Father , 1977 Alcoholism Emphysema of lung Sister , 2016 ANGINA Cancer Diabetes CVA (cerebral vascular accident) Thyroid disorder Uterine cancer Brother Cancer Diabetes Mother Diabetes Myocardial infarction Heart disease 1964-59 YEARS Hypertension Surgical History History of cholecystectomy History of thyroidectomy Hx of breast reduction, elective History of bilateral knee replacement Social History Smoking Status: Former smoker how long ago did patient quit smokin alcohol intake: never substance use type: does not use caffeine: Yes Type: coffee Number of servings: 4 and tea Review of Systems (Anesthesia) ROS Narrative System reviewed and no additional complaints, except as documented.
[2025-01-02] MEDS: Lactated Ringers 1,000 ML 15 ML IV (11:45)
--- NOTE | 2025-01-02 12:46 | CASEMGMT ---
SAAD CM to pt room at this time for assessment. Pt is currently off of the floor for a colonoscopy. CM to follow.
--- NOTE | 2025-01-02 13:21 | PCM.PN.BLA ---
Progress Note Patient completed a prep without any problems. She is for colonoscopy today. Physical Exam Const alert, oriented x3, no apparent distress and healthy appearing General Appearance: cooperative GI normal to inspection, nondistended, normoactive bowel sounds, soft to palpation, non-tender and non-distended Percussion: normal to percussion Rectal Exam: deferred Assessment & Plan Assessment/Plan (1) GIB (gastrointestinal bleeding): PLAN: 79-year-old on Eliquis comes in with melanotic stools discovered to have hemoglobin of 5.8. Likely upper GI bleed versus small bowel bleed versus lower GI bleed. She should undergo an upper endoscopy. She was explained alternatives, risk and benefits including withstanding bleeding, pressure, subs, perforation, need for charge and . Have an ASA of 3. PLAN: Plan 01/01/2025-all labs reviewed and patient questions and concerns were answered prior to the procedure. She was explained alternatives, risk and benefits include not withstanding bleeding, infection, sepsis, perforation, need for urgent . She will have an ASA of 3. 01/02/2025-patient completed her prep. Follow-up hemoglobin has improved with blood transfusion. She had no bleeding with the prep. She will undergo colonoscopy. She was explained alternatives, risk and benefits include understanding bleeding, infection, sepsis, perforation, need for surgery . She will have an ASA of 3. Visit Charges Inpatient E&M: 73184 Subs Hosp L2
--- NOTE | 2025-01-02 14:19 | PCM.POST.ANE ---
Anesthesia: Postop Eval I Current Vital Signs Temperature: 98.7 F Pulse Rate: 72 Blood Pressure: 119/54 Respiratory Rate: 16 Pulse Ox: 100 Oxygen Delivery Method: Room Air Assessment Airway patent: Yes Spontaneous unlabored respirations: Yes Mental status: Awake and Calm nausea: No Vomiting: No Anesthesia Complication: No Fluid Hydration Crystalloid volume administer (ml): 800 Total IV fluid infused: 800 Progress Note Anesthesia document: Postop Eval 1 completed: Yes
--- NOTE | 2025-01-02 15:57 | CASEMGMT ---
SAAD PABON Assessment Face to Face with patient for initial transition planning/care coordination assessment. SAAD PABON introduced self and role at [facility], pt voices understanding. Pt is A&Ox4 and is resting comfortably in bed and is calm. Care providers, pharmacy, and demographics verified. Admitting dx: Upper GI Bleed LACE Strata: 2 PCP: Pauline Alcaraz Specialists: [facility] is currently consulted, [facility] Preferred Pharmacy: [facility] Insurance: MCR A/B, [employer] Prescription Benefit: Yes LNOK: [employer] (H) Living Arrangements: Pt lives with her in a 1.5 story home with 4 steps to enter ADLs/IADLs: Indep Transportation: Self, DME: Access to a cane and FWW but does not use HHC/SNF: Denies history or needs. Pt reports that he has been to [facility] PT but does not require this now Pt?s goal: home Plan: Home with pt once medically ready, anticipate no additional needs. 6-Click score is 24 and pt was cleared by PT. Pt states that she feels safe returning home with her once she is medically ready and denies further home needs at this time. Len Haile RN, CM
[2025-01-02] MEDS: Metoprolol(XL)Succ 50 MG Tablet PO (22:16)
[2025-01-02] MEDS: Pantoprazole Sodium 40 MG in 0.9% Normal Saline (100mL MB+) 100 ML 330 MG IV (22:17)
[2025-01-02] MEDS: Levothyroxine 112 MCG Tablet PO (22:17)
[2025-01-02] MEDS: 0.9% Saline Lock 10 ML Syringe IV (22:46)
[2025-01-03] VITALS (9 sets, daily range): BP systolic 124–133; BP diastolic 46–52; PULSE 62–86; RESP 12–18; TEMP 36.5–36.7; O2SAT 96–99; BMI 32.5
[2025-01-03] MEDS: Albuterol 2.5 MG/3 ML VIAL.NEB. INHALATION ×3 (06:55→20:50)
[2025-01-03] MEDS: Budesonide Respules 0.5 MG/2 ML AMPUL.NEB. INHALATION ×2 (06:55→20:50)
[2025-01-03] MEDS: Metoprolol(XL)Succ 50 MG Tablet PO ×2 (09:41→22:01)
[2025-01-03] MEDS: Iron Polysaccharide Complex 150 MG CAPSULE PO (09:41)
[2025-01-03] MEDS: Cholecalciferol (VIT D3) 25 MCG TABLET (1,000 UNITS) 50 MCG PO (09:42)
[2025-01-03] MEDS: 0.9% Saline Lock 10 ML Syringe IV (10:24)
[2025-01-03] MEDS: Pantoprazole Sodium 40 MG in 0.9% Normal Saline (100mL MB+) 100 ML 330 MG IV ×2 (10:24→21:58)
--- NOTE | 2025-01-03 11:38 | PCM.PN.HOSP ---
Reason for Visit Reason for Visit: Diagnoses Anemia, unspecified (12/31/24) Melena (12/31/24) Gastrointestinal hemorrhage, unspecified (12/31/24) Other forms of dyspnea (12/31/24) Weakness (12/31/24) Unspecified adverse effect of drug or medicament, initial encounter (12/31/24) skilled nursing (current) use of anticoagulants (12/31/24) Personal history of other diseases of the circulatory system (12/31/24) Subjective Subjective patient underwent colonoscopy the day prior. Official report pending. Repeated H&H this a.m. Objective Data Objective Data Vital Signs: Vital Signs Temp Pulse Resp BP Pulse Ox O2 Del Method 97.7 F L 86 14 126/49 H 98 Room Air 01/03/25 09:00 01/03/25 09:41 01/03/25 09:00 01/03/25 09:00 01/03/25 09:00 01/03/25 09:00 Oxygen Delivery Method Room Air Weight: 86.1 kg Body Mass Index (BMI) 32.5 Intake & Output: Intake and Output for Last 24 Hours 01/01/25 01/02/25 01/03/25 23:59 23:59 23:59 Intake Total 926.83 / 926.83 348.92 / 348.92 100 / 100 Balance 926.83 / 926.83 348.92 / 348.92 100 / 100 Lab / Micro Data 01/02/25 05:30 01/02/25 05:30 Rhythm Strip Rhythm Strip: Sinus Rhythm Rate: 75 Ectopy: None Physical Exam Narrative GENERAL: cooperative HEENT: Atraumatic; normocephalic EYES; Anicteric, Normal Conjunctiva NECK; supple, normal thyroid, RESPIRATORY: Diminished to auscultation CARDIOVASCULAR: Regular S1 S2, GI: soft, normoactive bowel sounds, : No Renal angle tenderness; EXTREMITIES: No edema, no clubbing, MUSCULOSKELETAL: no muscle wasting NEURO: Awake; no lateralizing signs. SKIN: No Rash PSYCH; Flat affect Assessment & Plan Assessment/Plan (1) Melena: PLAN: Plan Patient is an 79-year-old lady admitted with GI bleed?melena with associated fatigue 1.Acute GI bleed ? Suspected to be secondary to upper GI bleed exacerbated by the use of apixaban. Patient hemoglobin on admission was 5.8. Admitted to a monitored bed patient was transfused with 2 unit PRBC and. Eliquis held started on Protonix drip following a bolus. Consult placed to GI for endoscopy ? 01/02/2025; patient underwent EGD by Dr. 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 Biopsied. - Small hiatal hernia. - Gastric lipoma. - Mucosal changes in the duodenum. Biopsied. Recommendations : - [facility]. - Clear liquid diet. - Continue present medications. - Await pathology results. - Prep for colonoscopy ? Patient scheduled to undergo colonoscopy ? 01/03/2025; patient underwent colonoscopy the day prior. Official report pending. Repeated H&H this a.m. 2. Anemia ? Secondary to acute blood loss anemia management as discussed above; monitoring H&H and transfuse if patient becomes symptomatic or hemoglobin falls below 7 ? 01/02/2025; patient hemoglobin up to 8.1 following blood transfusion. Will repeat H&H in a.m. 3. Paroxysmal atrial fibrillation ? Rate controlled on systemic anticoagulation with apixaban held given reasons above 4. Essential hypertension ? Patient antihypertensives held on admission given relative hypotension 5. Class I obesity with BMI of 34 ? Complicating care weight loss advised 6. History of thyroid cancer status post thyroidectomy ? Patient is on replacement therapy with levothyroxine 7. Generalized osteoarthritis ? Pain meds as needed 8. DVT prophylaxis ? Chemoprophylaxis contraindicated given patient presentation Time spent in the patient's overall evaluation,decision-making process, review of diagnostic data, adjustment of management, discussion with other providers, nursing nursing and ancillary staff involved in patient's care documentation, 36 Minutes Charges/Coding Visit Charges Inpatient E&M: 00620 Subs Hosp L2
[2025-01-03 12:28] LABS: Absolute Lymphocyte Count 1.41 X10^3/uL (0.83-4.51); Absolute Neutrophil Count 7.8 X10^3/uL (2.0-7.7); Basophil# 0.01 X10^3/uL; Basophil% 0.1 % (0-1); Eosinophil# 0.02 X10^3/uL; Eosinophils% 0.2 % (0-5); Hematocrit 24.5 % (37-47); Hemoglobin 7.6 g/dL (12.0-15.0); Lymphocyte # 1.41 X10^3/ul (0.83-4.51); Lymphocyte % 13.8 % (19-41); Mean Corpuscular Hgb 25.2 pg (27.0-32.0); Mean Corpuscular Volume 81.4 fL (81-99); Mean Platelet Vol. 9.8 fl (6.2-12.0); Monocyte# 0.92 X10^3/uL; NRBC Flagged by Analyzer 0 % (0-5); Neutrophil # 7.77 X10^3/uL (2.7-7.7); Neutrophil % 76.1 % (47-70); Platelet Count 340 K/mm3 (150-450); RBC Distribution Width CV 14.9 % (11.6-14.6); RBC Distribution Width SD 43.5 fl (35.1-43.9); Red Blood Count 3.01 M/mm3 (4.2-5.4); White Blood Count 10.2 K/mm3 (4.4-11.0)
[2025-01-03 14:06] LABS: Anion Gap 13 (5-15); BUN 7 mg/dL (4-19); BUN/Creat Ratio 8.2 RATIO (10-20); Calcium,Total 8.7 mg/dL (7.6-11.0); Chloride 101 mmol/L (98-108); Creatinine, Serum 0.91 mg/dL (0.70-1.20); EST Glomerular Filtration Rate 64 (>60); Estimated Creatinine Clearance 52.35 ml/min (50-250); Glucose 154 mg/dL (70-99); Potassium 3.3 mmol/L (3.3-5.1); Sodium Level 137 mmol/L (133-145)
[2025-01-03] MEDS: Sodium Ferric Gluconat/Sucrose 250 MG in 0.9% Normal Saline (250mL Bag) 250 ML 135 MG IV (16:30)
--- NOTE | 2025-01-03 17:34 | OP.CCLET_ITS ---
01/03/2025 Pauline Alcaraz [address] [place] [address] Re : Colonoscopy procedure for Tamera Bartlettd Dear Dr. Alcaraz This procedure was performed on Thursday, January 02, 2025. My impressions and recommendations are as follows: Impressions : - Diverticulosis in the recto-sigmoid colon, in the sigmoid colon, in the descending colon, at the splenic flexure and in the ascending colon. - No specimens collected. Recommendations : - Discharge patient to home. - Resume previous diet. - Continue present medications. - No repeat colonoscopy. My findings are described in the full procedure note, which is enclosed. If I can be of further assistance, please feel free to contact me at . Sincerely, Austin Jaimes, 01/03/2025 5:33:59 PM This report has been signed electronically.
--- NOTE | 2025-01-03 17:34 | OP.COLON_ITS ---
Patient Name: Tamera Temple Procedure Date: 01/02/2025 1:28 PM Date of : 1945 Age: 79 Procedure: Colonoscopy Indications: Hematochezia Providers: Austin Jaimes DO Medicines: Monitored Anesthesia Care Patient Profile: This is an 79 year old female. Refer to note in patient chart for documentation of history and physical. Last Colonoscopy: within the past 3 years. Complications: No immediate complications. Procedure: Pre-Anesthesia Assessment: - Prior to the procedure, a History and Physical was performed, and patient medications and allergies were reviewed. The patient is competent. The risks and benefits of the procedure and the sedation options and risks were discussed with the patient. All questions were answered and informed consent was obtained. Patient identification and proposed procedure were verified by the physician. Mental Status Examination: normal. Prophylactic Antibiotics: The patient does not require prophylactic antibiotics. Prior Anticoagulants: The patient has taken no anticoagulant or antiplatelet agents except for NSAID medication. ASA Grade Assessment: II - A patient with mild systemic disease. After reviewing the risks and benefits, the patient was deemed in satisfactory condition to undergo the procedure. The anesthesia plan was to use monitored anesthesia care (MAC). Immediately prior to administration of medications, the patient was re-assessed for adequacy to receive sedatives. The heart rate, respiratory rate, oxygen saturations, blood pressure, adequacy of pulmonary ventilation, and response to care were monitored throughout the procedure. The physical status of the patient was re-assessed after the procedure. After I obtained informed consent, the scope was passed under direct vision. Throughout the procedure, the patient's blood pressure, pulse, and oxygen saturations were monitored continuously. The Colonoscope was introduced through the anus and advanced to the cecum, identified by appendiceal orifice and ileocecal valve. The colonoscopy was performed without difficulty. The patient tolerated the procedure well. The quality of the bowel preparation was adequate. The terminal ileum, ileocecal valve, appendiceal orifice, and rectum were photographed. Scope In: 1:43:30 PM Scope Withdrawal Time 0 hours 20 minutes 22 seconds Scope Out: 2:08:52 PM Total Procedure Duration Time 0 hours 25 minutes 22 seconds Findings: The perianal and digital rectal examinations were normal. Multiple small and large-mouthed diverticula were found in the recto-sigmoid colon, sigmoid colon, descending colon, splenic flexure and ascending colon. Red blood was found in the cecum. 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 Coagulation for hemostasis using heater probe was successful. For location marking, one hemostatic clip was successfully placed. Clip embalmer/funeral director: Voter Gravity. There was no bleeding at the end of the procedure. Impression: - Diverticulosis in the recto-sigmoid colon, in the sigmoid colon, in the descending colon, at the splenic flexure and in the ascending colon. - No specimens collected. Recommendation: - Discharge patient to home. - Resume previous diet. - Continue present medications. - No repeat colonoscopy. Procedure Code(s): --- Professional --- 45861, Colonoscopy, flexible; with control of bleeding, any method 10594, Unlisted procedure, colon CPT copyright 2021 [employer]. All rights reserved. The codes documented in this report are preliminary and upon certified coder review may be revised to meet current compliance requirements. Austin Jaimes DO 01/03/2025 5:33:59 PM This report has been signed electronically. Number of Addenda: 0 Note Initiated On: 01/02/2025 1:28 PM
[2025-01-03] MEDS: Levothyroxine 112 MCG Tablet PO (22:01)
[2025-01-04 03:00] VITALS: BP 127/57; PULSE 61; RESP 14; TEMP 36.5; O2SAT 96
[2025-01-04 04:32] VITALS: BMI 32.6
[2025-01-04 08:01] VITALS: PULSE 65; RESP 18; O2SAT 95
[2025-01-04] MEDS: Albuterol 2.5 MG/3 ML VIAL.NEB. INHALATION (08:01)
[2025-01-04] MEDS: Budesonide Respules 0.5 MG/2 ML AMPUL.NEB. INHALATION (08:01)
[2025-01-04 09:00] VITALS: BP 114/100; PULSE 100; RESP 12; TEMP 36.6; O2SAT 98
[2025-01-04 09:03] LABS: Absolute Lymphocyte Count 2.03 X10^3/uL (0.83-4.51); Absolute Neutrophil Count 5.5 X10^3/uL (2.0-7.7); Basophil# 0.03 X10^3/uL; Basophil% 0.3 % (0-1); Eosinophil# 0.14 X10^3/uL; Eosinophils% 1.6 % (0-5); Hematocrit 23.8 % (37-47); Hemoglobin 7.5 g/dL (12.0-15.0); Lymphocyte # 2.03 X10^3/ul (0.83-4.51); Lymphocyte % 23.4 % (19-41); Mean Corp Hgb Conc 31.5 g/dL (32-36); Mean Corpuscular Hgb 25.6 pg (27.0-32.0); Mean Corpuscular Volume 81.2 fL (81-99); Mean Platelet Vol. 10.3 fl (6.2-12.0); Monocyte# 0.89 X10^3/uL; Monocyte% 10.3 % (0-10); NRBC Flagged by Analyzer 0 % (0-5); Neutrophil # 5.53 X10^3/uL (2.7-7.7); Neutrophil % 63.7 % (47-70); Platelet Count 335 K/mm3 (150-450); RBC Distribution Width CV 15.2 % (11.6-14.6); RBC Distribution Width SD 44.2 fl (35.1-43.9); Red Blood Count 2.93 M/mm3 (4.2-5.4); White Blood Count 8.7 K/mm3 (4.4-11.0)
[2025-01-04 09:39] LABS: Anion Gap 10 (5-15); BUN 7 mg/dL (4-19); BUN/Creat Ratio 7.4 RATIO (10-20); Calcium,Total 8.9 mg/dL (7.6-11.0); Chloride 106 mmol/L (98-108); EST Glomerular Filtration Rate 65 (>60); Glucose 84 mg/dL (70-99); Potassium 3.5 mmol/L (3.3-5.1); Sodium Level 140 mmol/L (133-145)
--- NOTE | 2025-01-04 09:41 | DS.PCM_ITS ---
Providers Date of Admission: 12/31/24 Date of Discharge: 01/04/25 Primary Care Physician: Dr. Pauline Alcaraz MD Consultations 12/31/24 15:09 Consult: Gastroenterology Routine Consulting Provider: [facility] Reason for Consult: GI bleed EMERGENT Consult: No MD Notified: Yes Date Notified: 12/31/24 Time Notified: 14:36 Method of Notification: ED Physician Initiated Reason For Visit: UPPER GI BLEED Diagnosis Discharge Diagnosis (1) Melena: Status: Acute Code(s): K92.1 - Melena Plan Patient is an 79-year-old lady admitted with GI bleed?melena with associated fatigue 1.Acute GI bleed ? Suspected to be secondary to upper GI bleed exacerbated by the use of apixaban. Patient hemoglobin on admission was 5.8. Admitted to a monitored bed patient was transfused with 2 unit PRBC and. Eliquis held started on Protonix drip following a bolus. Consult placed to GI for endoscopy ? 01/02/2025; patient underwent EGD by Dr. 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 Biopsied. - Small hiatal hernia. - Gastric lipoma. - Mucosal changes in the duodenum. Biopsied. Recommendations : - [facility]. - Clear liquid diet. - Continue present medications. - Await pathology results. - Prep for colonoscopy ? Patient scheduled to undergo colonoscopy ? 01/03/2025; patient underwent colonoscopy the day prior. Official report pending. Repeated H&H this a.m. 01/04/2025 7: Patient colonoscopy demonstrated multiple small and large mouth diverticula found in the rectosigmoid colon, sigmoid colon and descending colon as well as splenic and descending colon red blood was found in the cecum. Patient was also noted to have 2 large localized angiodysplastic lesion with bleeding in the cecum. Coagulation for hemostasis using heater probe was successful. For location marking 1 hemostatic clip was successfully placed. 2. Anemia ? Secondary to acute blood loss anemia management as discussed above; monitoring H&H and transfuse if patient becomes symptomatic or hemoglobin falls below 7 ? 01/02/2025; patient hemoglobin up to 8.1 following blood transfusion. Will repeat H&H in a.m. 3. Paroxysmal atrial fibrillation ? Rate controlled on systemic anticoagulation with apixaban held given reasons above ? In view of above decision was made to hold patient systemic anticoagulation for a week on discharge 4. Essential hypertension ? Patient antihypertensives held on admission given relative hypotension 5. Class I obesity with BMI of 34 ? Complicating care weight loss advised 6. History of thyroid cancer status post thyroidectomy ? Patient is on replacement therapy with levothyroxine 7. Generalized osteoarthritis ? Pain meds as needed 8. DVT prophylaxis ? Chemoprophylaxis contraindicated given patient presentation Time spent in the patient's overall evaluation,decision-making process, review of diagnostic data, adjustment of management, discussion with other providers, nursing nursing and ancillary staff involved in patient's care documentation, 35 Minutes Medications at Discharge Home Medications conjugated estrogens 0.625 mg/gram vaginal cream 1 dose vaginal .COMPLEX dryness 10/09/13 magnesium oxide 200 mg PO DAILY 10/24/19 multivitamin 1 cap PO DAILY 10/24/19 triamterene 37.5 mg-hydrochlorothiazide 25 mg tablet 1 tab PO QODAY 07/16/21 cholecalciferol (vitamin D3) 50 mcg (2,000 unit) tablet 50 mcg PO DAILY 01/07/23 coenzyme Q10 10 mg capsule 10 mg PO ONCE 01/07/23 levothyroxine 112 mcg tablet 112 mcg PO DAILY 01/07/23 spacer #1 ea 02/22/23 spacer #1 ea 03/21/23 lactobacillus combination no.4 3 billion cell capsule (Probiotic) 3,000 mmu cells PO DAILY supplement 08/15/24 fluticasone propionate 230 mcg-salmeterol 21 mcg/actuation HFA inhaler (Advair HFA) 2 inh inhalation BID #3 ea 09/18/24 metoprolol succinate 50 mg tablet,extended release 24 hr 50 mg PO BID 90 days #180 tabs 09/28/24 apixaban 5 mg tablet (Eliquis) 5 mg PO BID 12/31/24 Held on 01/04/25. Instructions: Resume on 01/14/25. losartan 100 mg tablet 100 mg PO DAILY 12/31/24 triamterene 37.5 mg-hydrochlorothiazide 25 mg tablet 2 tab PO QODAY 12/31/24 pantoprazole 40 mg tablet,delayed release (Protonix) 40 mg PO DAILY #90 tabs 01/04/25 polysaccharide iron complex 150 mg iron capsule (Ferrex) 150 mg PO DAILY #90 caps 01/04/25 Physical Exam Narrative GENERAL: cooperative HEENT: Atraumatic; normocephalic EYES; Anicteric, Normal Conjunctiva NECK; supple, normal thyroid, RESPIRATORY: Diminished to auscultation CARDIOVASCULAR: Regular S1 S2, GI: soft, normoactive bowel sounds, : No Renal angle tenderness; EXTREMITIES: No edema, no clubbing, MUSCULOSKELETAL: no muscle wasting NEURO: Awake; no lateralizing signs. SKIN: No Rash PSYCH; Flat affect Weight / BMI Weight Weight: 86.3 kg Body Mass Index (BMI) 32.6 ABG / Lab / Microbiology Data 01/04/25 08:40 01/04/25 08:40 Laboratory: Laboratory Results - last 24 hr 12/31/24 14:45: Crossmatch See Detail 01/03/25 12:13: WBC 10.2, RBC 3.01 L, Hgb 7.6 L, Hct 24.5 L, MCV 81.4, MCH 25.2 L, MCHC 31.0 L, RDW Std Deviation 43.5, RDW Coeff of Carmine 14.9 H, Plt Count 340, MPV 9.8, Immature Gran % (Auto) 0.800, Neut % (Auto) 76.1 H, Lymph % (Auto) 13.8 L, [place] % (Auto) 9.0, Eos % (Auto) 0.2, Baso % (Auto) 0.1, Absolute Neuts (auto) 7.8 H, Absolute Lymphs (auto) 1.41, Nucleated RBC % 0, Sodium 137, Potassium 3.3, Chloride 101, Carbon Dioxide 23.0, Anion Gap 13, BUN 7, Creatinine 0.91, Estim Creat Clear Calc 52.35, Est GFR (MDRD) Non-Af 64, BUN/Creatinine Ratio 8.2 L, Glucose 154 H, Calcium 8.7 01/04/25 08:40: WBC 8.7, RBC 2.93 L, Hgb 7.5 L, Hct 23.8 L, MCV 81.2, MCH 25.6 L , MCHC 31.5 L, RDW Std Deviation 44.2 H, RDW Coeff of Carmine 15.2 H, Plt Count 335, MPV 10.3, Immature Gran % (Auto) 0.700, Neut % (Auto) 63.7, Lymph % (Auto) 23.4, [place] % (Auto) 10.3 H, Eos % (Auto) 1.6, Baso % (Auto) 0.3, Absolute Neuts (auto) 5.5, Absolute Lymphs (auto) 2.03, Nucleated RBC % 0, Sodium 140, Potassium 3.5, Chloride 106, Carbon Dioxide 24.0, Anion Gap 10, BUN 7, Creatinine 0.90, Estim Creat Clear Calc 53.00, Est GFR (MDRD) Non-Af 65, BUN/Creatinine Ratio 7.4 L, Glucose 84, Calcium 8.9 D/C Instructions Discharge Diet: No restrictions Discharge Activity: Return to Normal Activity Call your doctor if you observe: Fever of 101 or Higher, Shortness of breath, Fainting spells and Chest pain DC O2, CPAP, BIPAP Needs Home O2 Discharge instructions: No Meaningful Use Info Meaningful Use Meaningful Use Diagnoses (Choose all that apply): None applicable Ischemic Stroke Statin Dosing Therapy Reference: STATIN DOSE THERAPY REFERENCE: * Patients > 75 years receive moderate or high dose statin therapy. * Patients 75 years or YOUNGER should receive HIGH intensity statin dose unless contraindicated. You will be required to document reason for non-treatment if statin daily dose does not meet guidelines. HIGH DOSE STATIN THERAPY DAILY Atorvastatin > than or = to 40 mg Rosuvastatin > than or = to 20 mg Amlodipine + Atorvastatin > than or = to 2.5/40 mg Ezetimibe + Simvastatin 10/80 mg Simvastatin 80mg Discharge Plan Admission Admit Date/Time: 12/31/24 14:34 Attending Provider: Carrillo Strong Primary Care Provider: Pauline Alcaraz Consulting Providers: Myranda Shirley Discharge Orders/Prescriptions Prescriptions: New polysaccharide iron complex [Ferrex 150] 150 mg iron Capsule 150 mg PO DAILY Qty: 90 0RF pantoprazole [Protonix] 40 mg tablet,delayed release (DR/EC) 40 mg PO DAILY Qty: 90 0RF Continued magnesium oxide 200 mg magnesium tablet 200 mg PO DAILY multivitamin Capsule 1 cap PO DAILY triamterene-hydrochlorothiazid 37.5-25 mg tablet 1 tab PO QODAY coenzyme Q10 10 mg capsule 10 mg PO ONCE levothyroxine 112 mcg tablet 112 mcg PO DAILY cholecalciferol (vitamin D3) 50 mcg (2,000 unit) tablet 50 mcg PO DAILY (DME) spacer See Rx Instructions .ROUTE .MEDSUPPLY Qty: 1 0RF Rx Instructions: As directed fluticasone propion-salmeterol [Advair HFA] 230-21 mcg/actuation HFA aerosol inhaler 2 inh inhalation BID Qty: 3 3RF conjugated estrogens 1 DOSE cream 1 dose vaginal .COMPLEX Patient Comments: ONLY USES WHEN DRYNESS OCCURS Rx Instructions: 1 dose vaginally BI-WEEKLY; losartan 100 mg tablet 100 mg PO DAILY triamterene-hydrochlorothiazid 37.5-25 mg tablet 2 tab PO QODAY Probiotic 3 billion cell capsule 3,000 mmu cells PO DAILY Patient Comments: pt unsure of dosage Rx Instructions: administer with a meal (DME) spacer See Rx Instructions .ROUTE .MEDSUPPLY Qty: 1 0RF Rx Instructions: As directed metoprolol succinate 50 mg tablet extended release 24 hr 50 mg PO BID 90 Days Qty: 180 3RF Rx Instructions: This is a dose increase Held Eliquis 5 MG tablet 5 mg PO BID Hold Instructions: Resume on 01/14/25. Referrals / Follow Up: Pauline Alcaraz MD [Primary Care Provider] - Within 2 Weeks Disposition Disposition (needs filled in before D/C Order can be placed): Home, Self Care
[2025-01-04] MEDS: Iron Polysaccharide Complex 150 MG CAPSULE PO (09:43)
[2025-01-04 09:44] VITALS: PULSE 100
[2025-01-04] MEDS: Metoprolol(XL)Succ 50 MG Tablet PO (09:44)
[2025-01-04] MEDS: Cholecalciferol (VIT D3) 25 MCG TABLET (1,000 UNITS) 50 MCG PO (09:44)
--- NOTE | 2025-01-04 10:30 | CASEMGMT ---
Patient has order for discharge. RN CM in to discuss needs at discharge. Patient denies needs or help at discharge. Patient had no further questions.
== END 2025-01-04 11:41 | disposition home or self-care (01) | DRG 378 ==
LOC: ED 14:27 → PCU 14:42
PROVIDERS: Anesthesiology; Internal Medicine Gastroenterology; Admitting Provider Internal Medicine; Emergency Provider Emergency Medicine; PCP Internal Medicine; Visit Provider Internal Medicine
PROC: 0DJ08ZZ Inspection of Upper Intestinal Tract, Via Natural or Artificial Opening Endoscopic (ICD-10-PCS; CPT 43235; principal; 2025-01-01 15:55)
PROC: 0DJD8ZZ Inspection of Lower Intestinal Tract, Via Natural or Artificial Opening Endoscopic (ICD-10-PCS; CPT 45378; principal; 2025-01-02 12:25)
DX: K55.21 Angiodysplasia of colon with hemorrhage (principal); D68.32 Hemorrhagic disorder due to extrinsic circulating anticoagulants; D62 Acute posthemorrhagic anemia; I10 Essential (primary) hypertension; E89.0 Postprocedural hypothyroidism; E66.811 Obesity, class 1; I48.0 Paroxysmal atrial fibrillation; K44.9 Diaphragmatic hernia without obstruction or gangrene; K22.70 Barrett's esophagus without dysplasia; M15.9 Polyosteoarthritis, unspecified; K57.30 Diverticulosis of large intestine without perforation or abscess without bleeding; Z87.891 Personal history of nicotine dependence; Z82.49 Family history of ischemic heart disease and other diseases of the circulatory system; Z79.01 Long term (current) use of anticoagulants; Z68.34 Body mass index [BMI] 34.0-34.9, adult; D17.79 Benign lipomatous neoplasm of other sites; T45.515A Adverse effect of anticoagulants, initial encounter; Z79.890 Hormone replacement therapy
CPT/HCPCS: 36415; 71046; 80048; 80053; 80076; 82248; 83735; 84100; 84484; 85014; 85018; 85025; 85610; 85730; 86850; 86900; 86901; 86920; 88305; 93005; 94640; 94668; 97161; 97165; 99282; C1889; P9016; A4216; J2405; J2916

== ENCOUNTER → 2025-04-17 | Outpatient (CLI) | payer MEDICARE, OTHER, SELFPAY ==
[2025-04-17 10:01] LABS: Hematocrit 33.2 % (37-47); Hemoglobin 10.2 g/dL (12.0-15.0); Immature Granulocytes Count 0.020 X10^3/uL (0.0-0.0); Mean Corp Hgb Conc 30.7 g/dL (32-36); Mean Corpuscular Volume 75.5 fL (81-99); Mean Platelet Vol. 9.6 fl (6.2-12.0); NRBC Flagged by Analyzer 0 % (0-5); Platelet Count 369 K/mm3 (150-450); RBC Distribution Width CV 19.7 % (11.6-14.6); RBC Distribution Width SD 53.0 fl (35.1-43.9); Red Blood Count 4.40 M/mm3 (4.2-5.4); White Blood Count 8.9 K/mm3 (4.4-11.0)
--- OUTSIDE RECORDS SUMMARY | 2025-04-17 11:01 | XMS RPT_ITS | CCD ---
Author Organization [facility] Care Team Providers Care Fisher Eel Name Role Phone BERNIE WRIGHT Attending Unavailable MARIKA PARK Primary Care Unavailable BERNIE WRIGHT Attending Unavailable MARIKA PARK Primary Care Unavailable BERNIE WRIGHT Admitting Unavailable JENNA SUTTON Consulting Unavailable BERNIE WRIGHT Attending Unavailable MARIKA PARK Primary Care Unavailable Marika Park MD Primary Care Provider Marika Park MD Primary Care Provider Mariak Park MD Primary Care Provider Dr. Marika Park Primary Care Provider Dr. Marika Park Referring Provider Dr. Janes Hicks Attending Provider Dr. Janes Hicks Referring Provider Dr. Janes Hicks Other Provider Marika Park MD Primary Care Provider Dr. Marika Park MD Primary Care Provider [phone] Dr. Lemuel Willett DO Attending Provider Dr. Lemuel Willett DO Emergency Provider Dr. Marika Park MD Referring Provider Blair GROVE WORKERArnulfoCToby Attending Provider Alex GROVE WORKER-CJailyn Attending Provider Susannah Newman Attending Provider Susannah Newman Referring Provider Burton MEYERS, Dr. Cedillo Attending Provider Alcantara AUTOMATED ACCESS SYSTEMS TECHNICIAN.IS CONSULTANT, Guillermo Unavailable Idania AUTOMATED ACCESS SYSTEMS TECHNICIAN.SENIOR RECRUITMENT CONSULTANT, Mindy Unavailable Lissa MEYERS, Dr. Marika Galvan Primary Care Provider Delfin MEYERS, Dr. Chowdhury Emergency Provider [phone] Casper EDWARDS, Dr. Whitmore Admit Provider Casper EDWARDS, Dr. Whitmore Attending Provider Quinton AUTOMATED ACCESS SYSTEMS TECHNICIAN.IS CONSULTANT, Guillermo Unavailable Casper EDWARDS, Dr. Whitmore Other Provider Ligia MEYERS, Dr. Vizcaino Attending Provider Unavaila romeo Strong MD, Dr. Vizcaino Other Provider Unavailable Theodore EDWARDS, Dr. Avila Attending Provider Lissa MEYERS, Dr. Marika Galvan Primary Care Provider Dr. Carrillo Strong MD Referring Provider Unavaila romeo Reinoso MD, Dr. Johnson Attending Provider Lissa MEYERS, Dr. Marika Galvan Referring Provider Jailyn Porras Attending Provider TALAMPAS, MARIKA D Primary Care Unavailable CARLOS IBARRA Attending Unavailable TALAMPAS, MARIKA D Attending Unavailable TALAMPAS, MARIKA D Primary Care Unavailable TALAMPAS, MARIKA D Referring Unavailable TALAMPAS, MARIKA D Primary Care Unavailable ALCANTARA, GUILLERMO Referring Unavailable TALAMPAS, MARIKA D Primary Care Unavailable ALCANTARA, GUILLERMO Referring Unavailable TALAMPAS, MARIKA D Primary Care Unavailable TALAMPAS, MARIKA D Primary Care Unavailable SU SILVEIRA Attending Unavailable ALCANTARA, GUILLERMO Attending Unavailable TALAMPAS, MARIKA D Primary Care Unavailable IDANIA, MINDY Attending Unavailable TALAMPAS, MARIKA D Primary Care Unavailable IDANIA, MINDY Referring Unavailable TALAMPAS, MARIKA D Primary Care Unavailable TALAMPAS, MARIKA D Primary Care Unavailable RAUL BONILLA Attending Unavailable Talampas, Marika D Primary Care Unavailable Lemuel Willett Attending Unavailable Kittoe, Carrillo Attending Unavailable Myranda Shirley Consulting Unavailable Casper, Myranda Admitting Unavailable Talampas, Marika D Primary Care Unavailable Talampas, Marika D Referring Unavailable Alex MORIN, Jailyn Attending Unavailable Talampas, Marika D Primary Care Unavailable Talampas, Marika D Referring Unavailable Talampas, Marika D Primary Care Unavailable Toby Pinto Attending Unavailable Talampas, Marika D Primary Care Unavailable Talampas, Marika D Referring Unavailable Alex MORIN, Jailyn Attending Unavailable Myranda Shirley Consulting Unavailable Carrillo Strong Attending Unavailable Talampas, Marika D Primary Care Unavailable Myranda Shirley Admitting Unavailable Carrillo Strong Consulting Unavailable Myranda Shirley Attending Unavailable Austin Jaimes Attending Unavailable Carrillo Strong Referring Unavailable Mamadou Manrique Attending Unavailable Susannah Newman Referring Unavail able Talampas, Marika D Primary Care Unavailable Talampas, Marika D Referring Unavailable Christy Ortega Attending Unavailable Talampas, Marika D Primary Care Unavailable Balwinder SCOTT, Susannah Webb Referring Unavail able Susannah Newman Attending Unavail able Talampas, Marika D Primary Care Unavailable Talampas , Dr. Marika Galvan Primary Care Physician Dr. Trenton Lenz MD Emergency Department Physici an Casper EDWARDS, Dr. Whitmore Admitting Physician [phone] Casper EDWARDS, Dr. Whitmore Nurse Practitioner Dr. Carrillo Strong MD Attending Physician Unavail able Ligia MEYERS, Dr. Vizcaino Nurse Practitioner Unavaila ble Theodore EDWARDS, Dr. Avila Attending Physician Kemar MEYERS, Dr. Johnson Attending Physician Jailyn Porras Attending Physician [phone] Timothy Desai Attending Physician [phone] Allergies Allergy Classification Reported Allergen(s) Allergy Type Date of Onset Reaction(s) Facility (20 sources) Codeine; Translations: [CODEINE] Drug Allergy 5 GI Upset [facility] (20 sources) Sulfonamides (Antibiotic); Translations: [SULFA (SULFONAMIDE ANTIBIOTICS)] Drug Allergy 5 Rash [facility] (6 sources) Sulfonamides (Antibiotic) Allergy to substance 3 Rash [facility] (1 source) Codeine Drug Allergy 5 [facility] (1 source) Sulfonamides (Antibiotic) Drug allergy (disorder) 5 [facility] Medications Current Medications Medication Drug Class(es) Dates Sig (Normalized) Sig (Original) apixaban 5 mg oral tablet (20 sources) Factor Xa Inhibitor Start: 05-05-2021 End: 03-26-2026 take 1 tablet by mouth twice daily apixaban (ELIQUIS) 5 mg tab(s) Indications: Atrial flutter by electrocardiogram (HCC) Take 1 tablet by mouth two times a day. 180 tablet 3 03/26/2025 03/26/2026 Active Start: 04-26-2021 End: 12-31-2024 take 2 tablets by mouth twice daily, then take 1 tablet by mouth twice daily Apixaban (Eliquis) 5 MG tablet Discontinued 5 mg PO TWICE A DAY 74 0 April 26, 2021 12:00am December 31, 2024 11:14am 10 mg twice a day for the first week. Then 5 mg twice a day. Comment on above: Take 1 tablet by j carlos th twice daily. cephalexin 500 mg oral capsule (9 sources) Cephalosporin Antibacterial Start: End: take 1 capsule by mouth four times daily cephALEXin (KEFLEX) 500 mg capsule Indications: Cellulitis of right lower extremity Take 1 capsule by mouth four times daily for 7 days. 28 capsule 04/02/2025 04/09/2025 Active Start: 03-26-2025 End: 03-31-2025 take 1 capsule by mouth three times daily cephALEXin (KEFLEX) 500 mg capsule Indications: Skin infection Take 1 capsule by mouth three times a day for 5 days. 15 capsule 03/26/2025 03/31/2025 Active Start: 10-09-2023 End: 10-28-2023 take 1 capsule by mouth four times daily at mealtime cephALEXin (KEFLEX) 500 mg capsule Take 1 capsule by mouth four times daily for 7 days. Take with food 28 capsule 0 10/17/2023 10/24/2023 Discontinued Comment on above: Take 1 capsule by mo ut four times daily for 7 days. Take 1 capsule by mo ut four times daily for 7 days. Take with food Take 1 capsule by mo ut four times daily for 4 days. Take with food cetirizine hydrochloride 10 mg oral tablet (2 sources) Histamine-1 Receptor Antagonist Start: 03-18-20 take 1 tablet by mouth once daily as needed Cetirizine 10 mg tablet Active 10 mg PO DAILY as needed for allergy symptoms 90 March 18, 2025 12:00am Complies with drug therapy cholecalciferol 0.05 mg oral tablet (20 sources) Vitamin D Start: 01-08-20 take 1 tablet by mouth once daily Cholecalciferol (Vitamin D3) 50 mcg (2,000 unit) tablet Active 50 ug PO DAILY January 07, 2023 12:00am vitamin Complies with drug therapy take 1 tablet by mouth once arie y cholecalciferol (VITAMIN D3) 50 mcg (2,000 unit) tablet Take 2,000 Units by mouth once daily. Active Comment on above: Take 2,000 Units by mouth once daily. estrogens, conjugated (long-term) 0.625 mg/ml vaginal cream (20 sources) Estrogen Start: 01-20-2021 End: 03-23-2024 conjugated estrogens (PREMARIN) vaginal cream Use small amount at vaginal opening twice a week 30 g 2 03/23/2024 Active Start: 10-09-2013 Conjugated Est rogens 1 DOSE cream Active 1 NMA VAGINAL .COMPLEX October 09, 2013 12:00am dryness 1 dose vaginally BI-WEEKLY; Complies with drug therapy Start: 10-09-2013 Conjugated Est rogens 1 DOSE cream Active 1 NMA VAGINAL DAILY October 09, 2013 12:00am Start: 10-09-2013 Conjugated Est rogens Active 1 DOSE VAGINAL DAILY October 09, 2013 12:00am Comment on above: Use small amount at vaginal opening twice a week Fluticasone Propion-Salmeterol (12 sources) Corticosteroid, beta2-Adrenergic Agonist Start: 09-18-2024 Fluticasone Propion-Salmeterol (Advair Hfa) 230-21 mcg/actuation HFA aerosol inhaler Active 2 NMA INHALATION TWICE A DAY 3 September 18, 2024 3:08pm breathing Complies with drug therapy Start: 09-18-2024 Fluticasone Pr opion-Salmeterol (Advair Hfa) 230-21 mcg/actuation HFA aerosol inhaler Active 2 NMA INHALATION TWICE A DAY 3 3 September 18, 2024 3:08pm breathing Start: 09-18-2024 Fluticasone Pr opion-Salmeterol (Advair Hfa) 230-21 mcg/actuation HFA aerosol inhaler Active 2 NMA INHALATION TWICE A DAY 3 September 18, 2024 3:08pm Start: 07-05-2023 End: 10-11-2023 ADVAIR HFA 230-21 mcg/actuat ion inhaler Start: 07-05-2023 End: 09-18-2024 Fluticasone Propion-Salmeter ol (Advair Hfa) 230-21 mcg/actuation HFA aerosol inhaler Discontinued 2 NMA INHALATION TWICE A DAY 3 3 July 05, 2023 1:00am September 18, 2024 3:08pm Start: 07-05-2023 End: 09-18-2024 Fluticasone Propion-Salmeter ol (Advair Hfa) 230-21 mcg/actuation HFA aerosol inhaler Discontinued 2 NMA INHALATION TWICE A DAY 3 July 05, 2023 1:00am September 18, 2024 3:08pm hydroCHLOROthiazide 25 mg / triamterene 37.5 mg oral tablet (20 sources) Potassium-sparing Diuretic, Thiazide Diuretic Start: 07-16-2021 End: 03-26-2025 Triamterene-Hydrochlorothiaz id 37.5-25 mg tablet Active 2 {tbl} PO EVERY OTHER DAY December 31, 2024 12:00am blood pressure Complies with drug therapy Start: 07-16-2021 take 1 tablet by j carlos once daily Triamterene-Hydrochlorothiazid Active 1 TABLET PO DAILY July 16, 2021 1:00am Start: 02-23-2021 End: 05-04-2024 Triamterene-Hydrochlorothiaz id 37.5-25 mg tablet Active 1 {tbl} PO DAILY July 16, 2021 1:00am Comment on above: Take 1 tablet by j carlos th once daily. Lactobacillus Combination No.4 (Probiotic) 3 billion cell capsule (5 sources) Start: take 3 capsules by mouth once daily Lactobacillus Combination No.4 (Probiotic) 3 billion cell capsule Active 3000 NMA PO DAILY August 15, 2024 1:00am supplement administer with a meal Complies with drug therapy Start: 08-15-2024 take 3 capsules by m outh once daily Lactobacillus Combination No.4 (Probiotic) 3 billion cell capsule Active 3000 NMA PO DAILY August 15, 2024 1:00am supplement administer with a meal Start: 08-15-2024 take 3 capsules by m outh once daily Lactobacillus Combination No.4 (Probiotic) 3 billion cell capsule Active 3000 NMA PO DAILY August 15, 2024 1:00am administer with a meal levothyroxine sodium 0.112 mg oral tablet (20 sources) l-Thyroxine Start: 04-17-2025 Levothyroxine 112 mcg tablet Active 125 ug PO DAILY April 17, 2025 8:09am thyroid Complies with drug therapy Start: 04-02-2025 take 1 tablet by j carlos th once daily levothyroxine (SYNTHROID) 125 mcg tablet Indications: Hypothyroidism, postsurgical , History of thyroid cancer Take 1 tablet by mouth once daily. 90 tablet 3 04/02/2025 Active Start: 01-20-2022 End: 04-17-2025 take 1 tablet by mouth once daily Levothyroxine 112 mcg tablet Discontinued 112 ug PO DAILY January 07, 2023 12:00am April 17, 2025 8:11am thyroid Start: 01-27-2021 End: 01-20-2022 levothyroxine (LEVOXYL) 137 mcg tablet Indications: Hypothyroidism, postsurgical , History of thyroid cancer Half pill on Sundays, 1 pill all other days a week 96 tablet 3 01/27/2021 01/20/2022 Discontinued Start: 10-09-2013 End: 01-07-2023 Levothyroxine 137 mcg tablet Discontinued 137 ug PO DAILY July 16, 2021 12:53pm January 07, 2023 10:57am thyroid takes 1 daily but 1/2 tab on tuesday Comment on above: Half pill on Sundays , 1 pill all other days a week Take 1 tablet by j carlos th once daily. Take on empty stomach. For thyroid losartan potassium 100 mg oral tablet (20 sources) Angiotensin 2 Receptor Baldev Start: 03-23-2024 End: 03-26-2025 take 1 tablet by mouth once daily Losartan 100 mg tablet Active 100 mg PO DAILY December 31, 2024 12:00am blood pressure Complies with drug therapy Start: 03-02-2021 End: 12-31-2024 take 1 tablet by mouth once daily Losartan 50 mg tablet Discontinued 50 mg PO DAILY July 16, 2021 1:00am December 31, 2024 11:10am Start: 12-27-2020 End: 07-16-2021 take 1 tablet by mouth once daily Losartan 25 mg Tablet Discontinued 25 mg PO DAILY December 27, 2020 12:00am July 16, 2021 12:54pm Comment on above: Take 1 tablet by j carlos th once daily. DOSE CHANGE, take one daily magnesium oxide 200 mg oral tablet (20 sources) Start: 10-24-2019 take 1 tablet by mouth once daily Magnesium Oxide 200 mg magnesium tablet Active 200 mg PO DAILY October 24, 2019 12:00am supplement Complies with drug therapy Comment on above: Take 1 tablet by j carlos th once daily. 24 hr metoprolol succinate 50 mg extended release oral tablet (20 sources) beta-Adrenergic Baldev Start: 09-28-2024 take 1 tablet by mouth twice daily Metoprolol Succinate 50 mg tablet extended release 24 hr Active 50 mg PO TWICE A DAY 180 90 3 September 28, 2024 2:39pm blood pressure This is a dose increase Complies with drug therapy Start: 08-15-2024 End: 09-28-2024 take 1 tablet by mouth once daily Metoprolol Succinate 50 mg tablet extended release 24 hr Discontinued 50 mg PO DAILY 90 90 3 September 06, 2024 1:17pm September 28, 2024 2:41pm Start: 04-26-2021 End: 01-16-2025 take 1 tablet by mouth once daily Metoprolol Succinate 25 mg tablet extended release 24 hr Discontinued 25 mg PO DAILY 30 0 April 26, 2021 12:00am September 06, 2024 12:32pm Comment on above: Take 1 tablet by j carlos th once daily. Multivitamin capsule (20 sources) Start: 10-24-2019 Multivitamin capsule Active 1 NMA PO DAILY October 24, 2019 12:00am vitamin Complies with drug therapy Start: 10-24-2019 Multivitamin c apsule Active 1 NMA PO DAILY October 24, 2019 12:00am vitamin Start: 10-24-2019 Multivitamin c apsule Active 1 NMA PO DAILY October 24, 2019 12:00am take 1 capsule by mo uth once daily Multivitamin capsule Take 1 capsule by mouth once daily. Active take 1 capsule by mo uth once daily Multivitamin capsule Take 1 capsule by mouth once daily. 0 Active Comment on above: Take 1 capsule by mo uth once daily. Multivitamin preparation (1 source) Start: 10-24-19 take 1 capsule by mouth once daily multivitamin Active 1 CAP PO DAILY October 24, 2019 12:00am mupirocin 0.02 mg/mg topical ointment (6 sources) RNA Synthetase Inhibitor Antibacterial Start: 04-02-20 End: 04-12-20 mupirocin (BACTROBAN) 2 % ointment Indications: Cellulitis of right lower extremity Apply 1 application to affected area three times a day for 10 days. 15 g 1 04/02/2025 04/12/2025 Active Start: 10-24-2023 End: 11-03-2023 mupirocin (BACTROBAN) 2 % oi ntment Apply 1 application to affected area three times a day for 10 days. 30 g 0 10/24/2023 11/03/2023 Active Start: 12-14-2021 End: 12-24-2021 mupirocin (BACTROBAN) 2 % oi ntment Apply 1 application to affected area three times daily for 10 days. 30 g 0 12/14/2021 12/24/2021 Active Comment on above: Apply 1 application to affected area three times daily for 10 days. Apply 1 application to affected area three times a day for 10 days. pantoprazole 40 mg delayed release oral tablet (13 sources) Proton Pump Inhibitor Start: 01-05-20 take 1 tablet by mouth once daily Pantoprazole (Protonix) 40 mg tablet,delayed release (DR/EC) Active 40 mg PO DAILY January 04, 2025 12:00am Complies with drug therapy polysaccharide iron complex 150 mg oral capsule (13 sources) Start: 01-05-20 End: 07-01-20 Polysaccharide Iron Complex (Ferrex 150) 150 mg iron Capsule Active 150 mg PO DAILY January 04, 2025 12:00am Complies with drug therapy predniSONE 20 mg oral tablet (13 sources) Start: 11-20-19 End: 11-25-19 take 2 tablets by mouth once daily predniSONE (DELTASONE) 20 mg tablet Indications: COPD with exacerbation (HCC) Take 2 tablets by mouth once daily for 5 days. 10 tablet 11/19/2024 11/24/2024 Active Start: 09-18-2024 End: 09-23-2024 take 3 tablets by mouth once daily at mealtime Prednisone 20 mg tablet Discontinued 60 mg PO daily 15 5 0 September 18, 2024 1:00am September 22, 2024 1:00am September 23, 2024 1:13am administer with food or milk Start: 02-22-2023 End: 06-30-2023 take 3 tablets by mouth once daily at mealtime Prednisone 20 mg tablet Discontinued 60 mg PO daily 15 February 22, 2023 12:00am June 30, 2023 10:46am administer with food or milk Start: 10-25-2022 End: 10-30-2022 take 5 tablets by mouth once daily, then take 4 tablets by mouth once daily, then take 3 tablets by mouth once daily, then take 2 tablets by mouth once daily, then take 1 tablet by mouth once daily predniSONE (DELTASONE) 10 mg tablet Indications: Acute cough , Wheezing Take 5 tablets by mouth once daily for 1 day, THEN 4 tablets once daily for 1 day, THEN 3 tablets once daily for 1 day, THEN 2 tablets once daily for 1 day, THEN 1 tablet once daily for 1 day. 15 tablet 0 10/25/2022 10/30/2022 Active Comment on above: Take 5 tablets by mo [facility] once daily for 1 day, THEN 4 tablets once daily for 1 day, THEN 3 tablets once daily for 1 day, THEN 2 tablets once daily for 1 day, THEN 1 tablet once daily for 1 day. spacer (10 sources) Start: 03-21-2023 spacer Active 0 .ROUTE .MEDSUPPLY 1 March 21, 2023 12:00am inhaler As directed Start: 03-21-2023 spacer Active 0 .ROUTE .MEDSUPPLY March 21, 2023 12:00am As directed Start: 02-22-2023 spacer Active 0 .ROUTE .MEDSUPPLY 1 February 22, 2023 12:00am inhaler As directed Start: 02-22-2023 spacer Active 0 .ROUTE .MEDSUPPLY 1 February 22, 2023 12:00am As directed ubidecarenone 10 mg oral cap nasrin (20 sources) Start: 01-07-2023 Coenzyme Q10 1 0 mg capsule Active 10 mg PO ONCE January 07, 2023 12:00am supplement Complies with drug therapy Start: 03-23-2017 End: 01-07-2023 Coenzyme Q10 50 MG tablet,ch ewable Discontinued 50 mg PO DAILY March 23, 2017 12:00am January 07, 2023 10:56am supplement coenzyme Q10 (CO ENZYME Q-10) 100 mg cap capsule Take 100 mg by mouth once daily. Active Comment on above: Take 100 mg by mouth once daily. Completed/Discontinued Medications Medication Drug Class(es) Dates Sig (Normalized) Sig (Original) amoxicillin 500 mg oral tablet (6 sources) Penicillin-class Antibacterial Start: 12-02-2020 End: 09-15-2022 Amoxicillin 500 mg tablet TAKE 4 PILLS 1 HOUR PRIOR TO DENTAL PROCEDURE 4 tablet 1 12/02/2020 09/15/2022 Discontinued Comment on above: TAKE 4 PILLS 1 HOUR PRIOR TO DENTAL PROCEDURE aspirin 81 mg chewable tablet (6 sources) Platelet Aggregation Inhibitor, Nonsteroidal Anti-inflammatory Drug End: 09-15-2022 aspirin 81 mg chewable tablet Take 81 mg by mouth as needed. 0 09/15/2022 Discontinued Comment on above: Take 81 mg by mouth as needed. azithromycin 250 mg oral tablet (5 sources) Macrolide Antimicrobial Start: 02-22-2023 End: 06-30-2023 take 2-5 tablets by mouth once daily Azithromycin 250 mg tablet Discontinued 0 PO .COMPLEX 6 0 February 22, 2023 12:00am June 30, 2023 10:45am take 500 mg today (day 1), then 250 mg for 4 days (days 2-5) PO benzonatate 100 mg oral capsule (4 sources) Non-narcotic Antitussive Start: 10-25-2022 End: 11-09-2022 take 1 capsule by mouth every eight hours as needed for cough and cough benzonatate (TESSALON PERLE) 100 mg capsule Indications: Acute cough Take 1 capsule by mouth every 8 hours as needed for cough for up to 15 days. 30 capsule 0 10/25/2022 11/09/2022 Comment on above: Take 1 capsule by mo [facility] every 8 hours as needed for cough for up to 15 days. 60 actuat budesonide 0.16 mg/actuat / formoterol fumarate 0.0045 mg/actuat metered dose inhaler (7 sources) Corticosteroid, beta2-Adrenergic Agonist Start: 02-22-2023 End: 10-11-2023 SYMBICORT 160-4.5 mcg/actuation inhaler Start: 02-22-2023 End: 07-05-2023 Budesonide-Formoterol (Symbi sharon) 160-4.5 mcg/actuation HFA aerosol inhaler Discontinued 2 NMA INHALATION TWICE A DAY 1 February 22, 2023 12:00am July 05, 2023 10:44am administer with spacer, rinse mouth after each use Start: 02-22-2023 End: 07-05-2023 Budesonide-Formoterol (Symbi sharon) 160-4.5 mcg/actuation HFA aerosol inhaler Discontinued 2 NMA INHALATION TWICE A DAY February 22, 2023 12:00am July 05, 2023 10:44am administer with spacer, rinse mouth after each use diphenhydrAMINE hydrochloride 25 mg oral tablet (20 sources) Histamine-1 Receptor Antagonist Start: 01-07-2023 End: 06-30-2023 take 1 tablet by mouth at bedtime Diphenhydramine Hcl 25 mg tablet Discontinued 25 mg PO AT BEDTIME January 07, 2023 12:00am June 30, 2023 10:45am End: 03-23-2024 take 1 capsule by mouth once daily diphenhydramine HCl (ALLERGY ORAL) Take 1 capsule by mouth once daily. 03/23/2024 Discontinued take 1 capsule by [facility] once daily diphenhydramine HCl (ALLERGY ORAL) Take 1 capsule by mouth once daily. 0 Active Comment on above: Take 1 capsule by mo [facility] once daily. doxycycline hyclate 100 mg oral tablet (5 sources) Tetracycline-class Drug Start: 10-09-19 End: 10-28-19 take 1 tablet by mouth twice daily at mealtime doxycycline (VIBRA-TABS) 100 mg tablet Take 1 tablet by mouth two times a day for 7 days. Take with food 14 tablet 0 10/17/2023 10/24/2023 Discontinued Comment on above: Take 1 tablet by [facility] two times a day for 7 days. Take 1 tablet by [facility] two times a day for 7 days. Take with food Take 1 tablet by [facility] two times a day for 4 days. Take with food ergocalciferol 0.05 mg oral tablet (6 sources) Provitamin D2 Compound Start: 10-10-19 14 End: 01-08-20 Ergocalciferol (Vitamin D2) 2,000 UNIT tablet Discontinued 2000 U PO DAILY October 09, 2013 12:00am January 07, 2023 10:59am vitamin FISH OIL CAP (6 sources) Start: 10-08-19 End: 09-15-19 FISH OIL CAP Take one(1) capsule daily. 0 10/07/2006 09/15/2022 Discontinued Start: 10-07-2006 FISH OIL CAP T micheline one(1) capsule daily. 0 10/07/2006 Active Comment on above: Take one(1) capsule daily. fluticasone propionate 0.05 mg/actuat metered dose nasal spray (2 sources) Corticosteroid Start: End: Fluticasone Propionate 50 mcg/actuation spray,suspension Discontinued 2 NMA INTRANASAL DAILY 16 March 18, 2025 12:00am March 18, 2025 12:05pm Asthma Unspecified asthma, uncomplicated furosemide 20 mg oral tablet (9 sources) Loop Diuretic Start: End: take 1 tablet by mouth once daily furosemide (LASIX) 20 mg tablet Take 1 tablet by mouth once daily. 5 tablet 10/24/2023 03/23/2024 Discontinued Comment on above: Take 1 tablet by [facility] once daily. 12 hr guaiFENesin 600 mg extended release oral tablet (5 sources) Start: End: take 1 tablet by mouth every twelve hours as needed Guaifenesin 600 mg tablet extended release 12hr Discontinued 600 mg PO Q12H as needed December 27, 2023 12:00am August 15, 2024 6:30am meclizine hydrochloride 25 mg oral tablet (20 sources) Antiemetic Start: End: take 1 tablet by mouth three times daily as needed for dizziness Meclizine 25 mg tablet Discontinued 25 mg PO THREE TIMES A DAY as needed for dizziness 20 0 May 02, 2021 12:00am January 07, 2023 10:58am Comment on above: Take 1 tablet by j carlos three times daily. montelukast 10 mg oral tablet (5 sources) Leukotriene Receptor Antagonist Start: 024 End: take 1 tablet by mouth once daily in the evening Montelukast 10 mg tablet Discontinued 10 mg PO EVERY EVENING 30 December 27, 2023 12:00am September 06, 2024 12:34pm nystatin [id number] unt/ml oral suspension (5 sources) Polyene Antifungal Start: 023 End: Nystatin 100,000 unit/mL suspension Discontinued 5 mL MUCOUS MEM THREE TIMES A DAY 250 March 21, 2023 12:00am June 30, 2023 10:46am swish and swallow 5 cc three times per day for 10 days potassium chloride 8 meq extended release oral capsule (9 sources) Start: End: take 1 capsule by mouth once daily potassium chloride SR (MICRO-K) 8 mEq cpER Take 1 capsule by mouth once daily. 5 capsule 10/24/2023 03/23/2024 Discontinued Comment on above: [facility]. Triamterene-Hydrochlo rothiazid (1 source) Start: 014 End: Triamterene-Hydrochl orothiazid Discontinued 1 EACH PO DAILY October 09, 2013 12:00am July 16, 2021 12:53pm Triamterene-Hydrochlo rothiazid 1 EACH capsule (5 sources) Start: 014 End: Triamterene-Hydrochl orothiazid 1 EACH capsule Discontinued 1 NMA PO DAILY October 09, 2013 12:00am July 16, 2021 12:53pm bp Start: 10-09-2013 End: 07-16-2021 Triamterene-Hydrochlorothiaz id 1 EACH capsule Discontinued 1 NMA PO DAILY October 09, 2013 12:00am July 16, 2021 12:53pm Problems Active Problems Problem Classification Problem Date Documented Da te Episodic/Chronic Abdominal hernia (2 sources) Hiatal hernia; Translations: [Diaphragmatic hernia without obstruction or gangrene] Onset: 5 01-07-2025 Episodic Asthma (1 source) Unspecified asthma, uncomplicated; Translations: [Unspecified asthma, uncomplicated] Onset: 5 Chronic Cancer of thyroid (20 sources) Malignant tumor of thyroid gland; Translations: [Malignant neoplasm of thyroid gland] Onset: 5 07-02-2011 Chronic Cardiac dysrhythmias (20 sources) EKG: atrial flutter; Translations: [Unspecified atrial flutter] Onset: 1 05-05-2021 Chronic Chronic obstructive pulmonary disease and bronchiectasis (12 sources) Chronic obstructive lung disease; Translations: [Chronic obstructive pulmonary disease, unspecified] Onset: 5 02-22-2023 Chronic Complications of surgical procedures or medical care (20 sources) Postoperative hypothyroidism; Translations: [Postprocedural hypothyroidism] Onset: 4 Chronic Complications of surgical procedures or medical care (9 sources) Drug therapy finding; Translations: [Unspecified adverse effect of drug or medicament, initial encounter] Onset: 5 12-31-2024 Episodic Conditions associated with dizziness or vertigo (20 sources) Vertigo; Translations: [Dizziness and giddiness] Onset: 1 05-05-2021 Episodic Deficiency and other anemia (8 sources) Anemia; Translations: [Anemia, unspecified] 12-31-2024 Episodic Deficiency and other anemia (1 source) Iron deficiency anemia; Translations: [Other iron deficiency anemias] 01-07-2025 Episodic Deficiency and other anemia (1 source) Other iron deficiency anemias; Translations: [Other iron deficiency anemia] Onset: 5 Episodic Deficiency and other anemia (1 source) Anemia, unspecified; Translations: [Anemia, unspecified] Onset: 5 Episodic Diabetes mellitus without complication (2 sources) High hemoglobin A1c level; Translations: [Other abnormal glucose] Episodic Essential hypertension (20 sources) Essential hypertension; Translations: [Essential (primary) hypertension] Onset: 0 Chronic Gastrointestinal hemorrhage (20 sources) Gastrointestinal hemorrhage; Translations: [Gastrointestinal hemorrhage, unspecified] Onset: 5 12-31-2024 Episodic Immunizations and screening for infectious disease (1 source) Encounter for immunization; Translations: [Encounter for immunization] Onset: 5 Episodic Malaise and fatigue (9 sources) Asthenia; Translations: [Weakness] Onset: 5 12-31-2024 Episodic Nonspecific chest pain (7 sources) Chest pain; Translations: [Chest pain, unspecified] 10-27-2021 Episodic Nutritional deficiencies (2 sources) Vitamin D deficiency; Translations: [Vitamin D deficiency, unspecified] Onset: 5 03-12-2025 Chronic Other aftercare (10 sources) Patient encounter status; Translations: [Other 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 (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) drug therapy] Episodic Other aftercare (2 sources) Long-term current use of drug therapy; Translations: [Other 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 (current) drug therapy] 03-23-2024 Episodic Other aftercare (14 sources) Long-term current use of anticoagulant; Translations: [terminal clerk (current) use of anticoagulants] 08-23-2024 Episodic Other aftercare (4 sources) Blood transfusion finding; Translations: [Blood transfusion, without reported diagnosis] 12-31-2024 Episodic Other aftercare (2 sources) [facility] (current) use of anticoagulants; Translations: [Chronic anticoagulation] Onset: 5 Episodic Other aftercare (1 source) Other fpc (current) drug therapy; Translations: [Encounter for long-term current use of medication] Onset: 5 Episodic Other and unspecified benign neoplasm (20 sources) Neoplasm of meninges; Translations: [Benign neoplasm of meninges, unspecified] Onset: 9 03-02-2019 Chronic Other and unspecified benign neoplasm (1 source) Lipoma of buttock; Translations: [Benign lipomatous neoplasm of skin and subcutaneous tissue of trunk] Episodic Other and unspecified benign neoplasm (1 source) Lipoma of back; Translations: [Benign lipomatous neoplasm of skin and subcutaneous tissue of trunk] Episodic Other and unspecified benign neoplasm (2 sources) History of polyp of colon; Translations: [Personal history of colonic polyps] Episodic Other circulatory disease (9 sources) H/O: atrial fibrillation; Translations: [Personal history of other diseases of the circulatory system] 12-31-2024 Episodic Other circulatory disease (1 source) Personal history of other diseases of the circulatory system; Translations: [Personal history of other diseases of the circulatory system] Onset: 5 Episodic Other connective tissue disease (2 sources) Pain of left lower leg; Translations: [Pain in left lower leg] 11-01-2023 Episodic Other gastrointestinal disorders (1 source) Vascular ectasia of colon; Translations: [Angiodysplasia of colon with hemorrhage] 01-07-2025 Episodic Other gastrointestinal disorders (1 source) Angiodysplasia of colon with hemorrhage; Translations: [Angiodysplasia of colon with hemorrhage] Onset: 5 Episodic Other injuries and conditions due to external causes (1 source) Scratch orosco; Translations: [Other injury of unspecified body region, initial encounter] Episodic Other injuries and conditions due to external causes (1 source) Post-traumatic wound infection; Translations: [Other injury of unspecified body region, initial encounter] 03-26-2025 Episodic Other injuries and conditions due to external causes (1 source) Other injury of unspecified body region, initial encounter; Translations: [Infected skin tear] Onset: 5 Episodic Other lower respiratory disease (1 source) Cough; Translations: [Acute cough] Episodic Other lower respiratory disease (2 sources) Wheezing; Translations: [Wheezing] Episodic Other lower respiratory disease (1 source) Chronic cough; Translations: [Chronic cough] Episodic Other lower respiratory disease (14 sources) Dyspnea on exertion; Translations: [Other forms of dyspnea] 01-10-2023 Episodic Other lower respiratory disease (2 sources) Other forms of dyspnea; Translations: [Other respiratory abnormalities] Onset: 5 01-10-2023 Episodic Other lower respiratory disease (1 source) Cough; Translations: [Acute cough] 10-25-2022 Episodic Other nervous system disorders (6 sources) Ataxia; Translations: [Ataxia, unspecified] 10-24-2019 Episodic Other nutritional; endocrine; and metabolic disorders (20 sources) Metabolic syndrome X; Translations: [Metabolic syndrome] Onset: 8 08-24-2007 Chronic Other nutritional; endocrine; and metabolic disorders (1 source) Hypercalcemia; Translations: [Hypercalcemia] Chronic Other nutritional; endocrine; and metabolic disorders (2 sources) Hypocalcemia; Translations: [Hypocalcemia] 05-04-2024 Chronic Other nutritional; endocrine; and metabolic disorders (1 source) Hypocalcemia; Translations: [Hypocalcemia] Onset: 5 Chronic Other nutritional; endocrine; and metabolic disorders (1 source) Dysmetabolic syndrome X; Translations: [Dysmetabolic syndrome X] Onset: 8 Chronic Other upper respiratory disease (2 sources) Hoarse; Translations: [Dysphonia] 03-18-2025 Episodic Prolapse of female genital organs (20 sources) Disorder of rectum; Translations: [Rectocele] Onset: 5 Resolved: 9 03-03-2009 Chronic Residual codes; unclassified (1 source) Bilateral lower limb edema; Translations: [Localized edema] 01-07-2025 Episodic Residual codes; unclassified (1 source) Localized edema; Translations: [Bilateral lower extremity edema] Onset: 5 Episodic Screening and history of mental health and substance abuse codes (2 sources) Encounter for screening for depression; Translations: [Encounter for screening examination for other mental health and behavioral disorders] Onset: 5 Episodic Skin and subcutaneous tissue infections (12 sources) Cellulitis of skin; Translations: [Cellulitis, unspecified] Onset: 5 10-09-2023 Episodic Thyroid disorders (20 sources) Hypothyroidism; Translations: [Hypothyroidism, unspecified] Onset: 5 Resolved: 7 02-10-2019 Chronic Past or Other Problems Problem Classification Problem Date Documented Date Episodic/Chronic Cancer of thyroid (20 sources) History of malignant neoplasm of thyroid; Translations: [Personal history of malignant neoplasm of thyroid] Onset: 10-21-2019 Episodic Cardiac dysrhythmias (20 sources) Palpitations; Translations: [Palpitations] Onset: 10-21-2019 10-21-2019 Episodic Genitourinary symptoms and ill-defined conditions (18 sources) Female stress incontinence; Translations: [Stress incontinence (female) (male)] Onset: 11-04-2004 Resolved: 03-03-2009 03-03-2009 Chronic Other hematologic conditions (20 sources) Other specified abnormalities of plasma proteins; Translations: [Other nonspecific findings on examination of blood] Onset: 12-20-2018 12-20-2018 Episodic Other lower respiratory disease (20 sources) Multiple nodules of lung; Translations: [Other nonspecific abnormal finding of lung field] Onset: 12-18-2012 07-27-2021 Episodic Other screening for suspected conditions (not mental disorders or infectious disease) (12 sources) Abnormal quantity of physiologic substance; Translations: [Other specified abnormal findings of blood chemistry] Onset: 12-20-2018 12-20-2018 Episodic Spondylosis; intervertebral disc disorders; other back problems (20 sources) Chronic low back pain; Translations: [Chronic right-sided low back pain without sciatica] Onset: 10-21-2019 10-21-2019 Episodic Results Test Name Value Interpretation Reference Range Facility [facility] 04-03-2025 [facility] Telephone (INTMWS) MARIETTA TEMPLE ([id number]) 1945 F Date Time Provider Department 04/03/25 [facility] your visit today, we recorded the following information about you: Le Norton RN 04/03/2025 9:06 AM Signed Yael with [facility] called in and reports they only received the cover page for this Pt. Copied the referral, demographics, and referral and put in faxes to be hand delivered to [facility]. Le Norton RN Allergies As of Date: 04/03/2025 Noted Allergy Reaction CODEINE 04/30/2005 8 - GI Upset Comments: Other reaction(s): Nausea SULFA (SULFONAMIDE ANTIBIOTICS) 11/04/2004 2 - Rash Comments: UNSURE OF REACTION Date Reviewed: 04/02/2025 Reviewed by: Holly Liang LPN - Fully Assessed Reason for Visit: Orders [681] Prescriptions as of 04/03/2025 - levothyroxine (SYNTHROID) 125 mcg tablet Take 1 tablet by mouth once daily. - cephALEXin (KEFLEX) 500 mg capsule Take 1 capsule by mouth four times daily for 7 days. - mupirocin (BACTROBAN) 2 % ointment Apply 1 application to affected area three times a day for 10 days. - iron polysaccharide complex (FERREX-150) 150 mg iron capsule Take 1 capsule by mouth once daily. - apixaban (ELIQUIS) 5 mg tab(s) Take 1 tablet by mouth two times a day. - losartan (COZAAR) 100 mg tablet Take one tablet daily - triamterene-hydroCHL OROthiazide (MAXZIDE-25) 37.5-25 mg per tablet Take 1 tab on every other day and the other days take 2 tabs - pantoprazole DR (PROTONIX) 40 mg tablet Take 1 tablet by mouth once daily. - metoprolol succinate ER (TOPROL XL) 50 mg 24 hr tablet Take 50 mg by mouth two times a day. - conjugated estrogens (PREMARIN) vaginal cream Use small amount at vaginal opening twice a week - meclizine (ANTIVERT) 25 mg tab Take 1 tablet by mouth three times daily. - Multivitamin capsule Take 1 capsule by mouth once daily. - magnesium oxide 200 mg magnesium tab Take 1 tablet by mouth once daily. - cholecalciferol (VITAMIN D3) 50 mcg (2,000 unit) tablet Take 2,000 Units by mouth once daily. - coenzyme Q10 (COENZYME Q-10) 100 mg cap capsule Take 100 mg by mouth once daily. Problem List As Of Date 04/03/2025 Noted Resolved FEMALE STRESS INCONTINENCE [N39.3] 11/04/2004 03/03/2009 UTERVAGINAL PROLAPSE NOS [N81.4] 11/04/2004 03/03/2009 TOX UNINOD GOIT NO NOREEN [E05.10] 04/30/2005 09/09/2006 Thyroid cancer [C73] 07/16/2005 Essential hypertension [I10] DYSMETABOLIC SYNDROME X [E88.810] 08/24/2007 RECTOCELE [N81.6] 02/29/2008 03/03/2009 RECTOCELE [N81.6] 03/03/2009 VAGINAL ENTEROCELE [N81.5] 03/03/2009 Cystocele, midline [N81.11] 11/03/2011 Indeterminate pulmonary nodules [R91.8] 12/18/2012 Hypothyroidism, postsurgical [E89.0] High serum thyroglobulin [R77.8] 12/20/2018 Meningioma (HCC) [D32.9] 03/02/2019 Heart palpitations [R00.2] 10/21/2019 Chronic right-sided low back pain without sciat*10/21/2019 History of thyroid cancer [Z85.850] 10/21/2019 Atrial flutter by electrocardiogram (HCC) [I48.*05/05/2021 Vertigo [R42] 05/05/2021 Encounter Status:Closed by LE NORTON on 04/03/25 Normal [facility] CNOVon 04-02-2025 CNOV Office Visit (INTMWS) TEMPLEMARIETTA Ayoub ([id number]) 1945 F Date Time Provider Department 04/02/25 1:20 PM GUILLERMO ALCANTARA INTMWS During your visit today, we recorded the following information about you: Pulse Respiration Blood pressure Weight 64/minute 16/minute 130/62 88.2 kg Guillermo Alcantara APRN.IS CONSULTANT 04/02/2025 2:18 PM Signed Marietta Ayoub Maverick is a 80 year old female here for a Medicare wellness visit. Medicare Health Risk Assessment General Health Very good Exercise: Minutes/Day Patient declined Exercise: Days/Week Patient declined Alcohol: Daily Use Patient declined Alcohol: Drinks/Day Patient declined Alcohol: 6 or more drinks Patient declined Feel off balance Yes Concerns: Teeth/Dentures No Concerns: Sexual function Decline Troubled by feelings Decline Frequency: Eating healthy diet Decline ADLs requiring help None of the above Safety precautions in home/vehicle Yes Smoke, vape, chews tobacco No Difficulty hearing Yes Difficulty seeing Yes Current Providers Specialists: I have reviewed specialist-related care of the patient in the medical record. Medical/Family history review Reviewed and updated problem list, medical/surgical/fam ashwin/social history, medications, and allergies. Opioid use review Opioid Medications (last 90 days) No data to display Anxiety/Depression screening PHQ-2 Score: 0 (Lower risk for depression) LACHELLE-7 Score: 0. Recommendation: no further intervention at this time Cognitive screening Mini Cog Score: 4 Cognitive screening reviewed and No further action needed (score 3-5). Functional Observation Was the patient's Timed Up AND Go test unsteady or >= 12 seconds? No Advance Care Planning Surrogate decision maker and/or advance care plan documented Thmoas Measurements BP 130/62 Pulse 64 Resp 16 Wt 88.2 kg (194 lb 7.1 oz) SpO2 97% BMI 32.59 kg/m? Vision Screening: Follows with optometry/ophthalmol ogy Latest Ref Rng 03/23/2024 06/16/2024 01/21/2025 03/19/2025 03/26/2025 WBC 3.70 - 11.00 k/uL 7.49 7.41 7.93 RBC 3.90 - 5.20 m/uL 4.84 3.76 (L) 4.16 Hemoglobin 11.5 - 15.5 g/dL 13.3 9.4 (L) 9.6 (L) Hematocrit 36.0 - 46.0 % 42.7 32.2 (L) 32.4 (L) MCV 80.0 - 100.0 fL 88.2 85.6 77.9 (L) MCH 26.0 - 34.0 pg 27.5 25.0 (L) 23.1 (L) MCHC 30.5 - 36.0 g/dL 31.1 29.2 (L) 29.6 (L) RDW-CV 11.5 - 15.0 % 15.2 (H) 17.1 (H) 18.2 (H) Platelet Count 150 - 400 k/uL 314 449 (H) 396 MPV 9.0 - 12.7 fL 10.9 10.6 10.4 Neut% % 65.4 Abs Neut (ANC) 1.45 - 7.50 k/uL 5.19 Lymph% % 22.3 Abs Lymph 1.00 - 4.00 k/uL 1.77 Nobles% % 8.7 Abs Nobles <0.87 k/uL 0.69 Eosin% % 2.8 Abs Eosin <0.46 k/uL 0.22 Baso% % 0.5 Abs Baso <0.11 k/uL 0.04 Immature Gran % % 0.3 IMMATURE GRANS (ABS) <0.10 k/uL <0.03 NRBC /100 WBC 0.0 Absolute nRBC <0.01 k/uL <0.01 <0.01 <0.01 DTYPE Auto Protein, Total 6.3 - 8.0 g/dL 7.1 6.9 6.9 Albumin 3.9 - 4.9 g/dL 4.3 4.1 4.0 Calcium 8.5 - 10.2 mg/dL 10.0 9.7 10.1 10.0 Bilirubin, Total 0.2 - 1.3 mg/dL 0.3 0.2 0.2 Alkaline Phosphatase 34 - 123 U/L 89 88 85 AST 13 - 35 U/L 31 18 24 ALT 7 - 38 U/L 29 16 24 Glucose 74 - 99 mg/dL 81 78 89 82 BUN 7 - 21 mg/dL 12 14 23 (H) 15 Creatinine 0.58 - 0.96 mg/dL 0.65 0.74 0.99 (H) 0.94 Sodium 136 - 144 mmol/L 138 139 140 137 Potassium 3.7 - 5.1 mmol/L 4.1 4.6 4.2 4.5 Chloride 98 - 107 mmol/L 98 102 102 100 CO2 22 - 30 mmol/L 29 25 25 27 Anion Gap 8 - 15 mmol/L 11 12 13 10 eGFR >=60 mL/min/1.73m? 89 82 58 (L) 61 Cholesterol, Total <200 mg/dL 209 (H) 192 Triglyceride <150 mg/dL 89 77 HDL Cholesterol >39 mg/dL 62 58 Non HDL Cholesterol <130 mg/dL 147 (H) 134 (H) Fasting Time hrs 12 12 VLDL Cholesterol <30 mg/dL 18 13 TC:HDL Ratio <5.10 3.37 3.31 LDL Cholesterol, Calculated <100 mg/dL 129 (H) 120 (H) LDL:HDL Ratio <2.54 2.08 2.07 Thyroglobulin Ab, Serum <4.0 IU/mL <0.9 <0.9 Thyroglobulin, Serum 1.6 - 50.0 ng/mL 2.9 2.7 TSH 0.270 - 4.200 mIU/L 4.080 5.860 (H) Free T4 0.9 - 1.7 ng/dL 1.5 1.3 Free T3 2.3 - 4.1 pg/mL 2.4 2.2 (L) Vitamin D 25 Hydroxy 31.0 - 80.0 ng/mL 129.0 (H) 71.0 Magnesium 1.7 - 2.3 mg/dL 2.1 2.2 Legend: (H) High (L) Low Assessment/Plan Medicare annual wellness visit, subsequent (Z00.00) - Counseled on healthy diet and regular exercise - Fall avoidance information provided - Personalized prevention plan provided 1. Medicare annual wellness visit, subsequent (Z00.00) 2. Screening for depression (Z13.31) 3. Encounter for screening examination for other mental health and behavioral disorders (Z13.39) 4. Encounter for immunization (Z23) - Completed Medicare annual wellness visit with focus on prevention. - No significant memory problems or difficulty with activities of daily living reported. - Discussed importance of advance directives; patient reports having a living will with Thomas as designee. 5. Gastrointestinal hemorrhage, unspecified (more content not included)... Normal [facility] CNOVon 03-26-2025 CNOV Office Visit (WOUCA) MARIETTA TEMPLE ([id number]) 1945 F Date Time Provider Department 03/26/25 10:00 AM SU SILVEIRA During your visit today, we recorded the following information about you: Temperature Pulse Respiration Blood pressure 97.9 degrees 60/minute 18/minute 142/82 Weight 88 kg Su Silveira APRN.SENIOR RECRUITMENT CONSULTANT 03/26/2025 10:04 AM Signed URGENT CARE NO Subjective Marietta Anitra Temple is a 80 year old female. Patient presents with: leg wound: Right lower leg wound x 3 days HPI The patient is an 80-year-old female presenting for evaluation of a leg wound. Leg Wound: - Sustained a scrape on the leg after missing a step on the porch 3-4 days ago. - Noted swelling around the wound and drainage on the Band-Aid. - Cleaned the wound with witch su and peroxide yesterday. - Reports pain when lying on the affected side. - Denies fever or chills. Review of Systems Constitutional: Negative for chills and fever. Skin: Positive for color change and wound. Negative for rash. Constitutional: (-) fever, (-) chills Musculoskeletal: (+) right lower leg erythema and tenderness and swelling Skin: (+) wound swelling, (+) wound drainage, (-) wound bleeding Objective BP 142/82 Pulse 60 Temp 36.6 ?C (97.9 ?F) (Tympanic) Resp 18 Wt 88 kg (194 lb 0.1 oz) SpO2 97% BMI 32.52 kg/m? Physical Exam Vitals and nursing note reviewed. Constitutional: General: She is not in acute distress. Appearance: Normal appearance. She is not ill-appearing. Cardiovascular: Rate and Rhythm: Normal rate. Pulmonary: Effort: Pulmonary effort is normal. Skin: General: Skin is warm and dry. Capillary Refill: Capillary refill takes less than 2 seconds. Findings: Erythema present. No rash. Neurological: Mental Status: She is alert. { 1. Skin infection (L08.9) 2. Infected skin tear (T14.8XXA) - Acute skin tear with signs of localized infection (erythema, tenderness, drainage) present for 3-4 days. - Start oral antibiotic TID for 5 days. - Advised to discontinue peroxide use due to delayed healing risk; instructed to apply topical antibiotic ointment (Neosporin or Triple Antibiotic) and keep wound covered for several days. - Advised to avoid water exposure to the wound. - Discussed importance of infection prevention due to history of artificial knees. - Follow-up with your PCP in 3-5 days if symptoms have not improved or sooner if symptoms worsen - Discussed red flags and need for immediate medical evaluation if any occur. - Discussed supportive care treatment with fluids, rest and analgesia. - Discussed expected course of illness Su Silveira APRN.SENIOR RECRUITMENT CONSULTANT and Recording using SmartCloud software for draft documentation of the visit was discussed with the patient/authorized provider relations representative; all questions welcomed and answered. Patient/authorized provider relations representative agreed to proceed Disposition The patient was discharged. Procedures Su Silveira APRN.SENIOR RECRUITMENT CONSULTANT 03/26/2025 10:04 AM Signed 1. Skin infection (L08.9) 2. Infected skin tear (T14.8XXA) - Acute skin tear with signs of localized infection (erythema, tenderness, drainage) present for 3-4 days. - Start oral antibiotic TID for 5 days. - Advised to discontinue peroxide use due to delayed healing risk; instructed to apply topical antibiotic ointment (Neosporin or Triple Antibiotic) and keep wound covered for several days. - Advised to avoid water exposure to the wound. - Discussed importance of infection prevention due to history of artificial knees. 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 - At home, clean the knee wound gently, apply a thin layer of antibiotic ointment (for example, Neosporin), and keep it covered with a fresh bandage for the next couple of days. - Do not use peroxide on the wound, since it can slow healing. - Keep the area dry and avoid soaking or water rubbings on your knee. - Expect the swelling and redness to improve over the next few days; monitor for any worsening signs such as increased pain, redness, swelling, drainage, fever, or chills. If these occur, contact the office. Allergies As of Date: 03/26/2025 Noted Allergy Reaction CODEINE 04/30/2005 8 - GI Upset Comments: Other reaction(s): Nausea SULFA (SULFONAMIDE ANTIBIOTICS) 11/04/2004 2 - Rash Comments: UNSURE OF REACTION Date Reviewed: 03/26/2025 Reviewed by: Umm Nichols LPN - Fully Assessed Reason for Visit: leg wound [Other] Cmt: Right lower leg wound x 3 days Primary Visit Diagnosis:Skin infection [L08.9] Other Visit Diagnosis:Infected skin tear [T14.8XXA, L08.9] Order(s):cephALEXin (KEFLEX) 500 mg capsuleTake 1 capsule by mouth three times a day for 5 days.Disp: 15 capsuleRfl: 0 Prescriptions as of 03/26/2025 - cephALEXin (KEFLEX) 500 mg (more content not included)... Normal [facility] Lipid 1996 panelon 5 Cholesterol [Mass/Vol] 192 mg/dL Normal <200 [facility] Comment on above: Order Comment: Speci men Type: BLOOD SPECIMENOrdering Facility: [facility] Address: [address] [place] [address] Result Comment: <200 mg/dL, Desirable 200-239 mg/dL, Borderline high >239 mg/dL, High Performed By: #### 2 4331-1 ####[facility] LABCLIA [id number] [facility] [id number], [place] [address] [place] Cholesterol in HDL [Mass/Vol] 58 mg/dL Normal >39 [facility] Comment on above: Order Comment: Speci men Type: BLOOD SPECIMENOrdering Facility: [facility] Address: [address] [place] [address] Result Comment: 40-5 9 mg/dL, Acceptable >59 mg/dL, High: Negative risk factor for coronary heart disease <40 mg/dL, Low: Positive risk factor for coronary heart disease Performed By: #### 2 4331-1 ####[facility] LABIA [id number] [address], [address] [place] Cholesterol in LDL [Mass/Vol] 120 mg/dL High <100 [facility] Comment on above: Order Comment: Razi men Type: BLOOD SPECIMENOrdering Facility: [facility] Address: [address] [place] [address] Result Comment: <100 mg/dL, Optimal 100-129 mg/dL, Near optimal/above optimal 130-159 mg/dL, Borderline high 160-189 mg/dL, High >189 mg/dL, Very high Secondary prevention optimal LDL Cholesterol levels are recommended to be <70 mg/dL LDL cholesterol is calculated using the Foss-NIH equation. Performed By: #### 2 4331-1 ####[facility] LABIA [id number] [address] [place] Cholesterol in LDL/Cholesterol in HDL [Mass ratio] 2.07 {ratio} Normal <2.54 [facility] Comment on above: Order Comment: Speci men Type: BLOOD SPECIMENOrdering Facility: [facility] Address: [facility] [place] [address] Result Comment: Analisa kirby: 1. National Cholesterol Education Program ATP III Guideline At-A-Glance Quick Desk Reference: National Heart, Lung, and Blood [place]. National Institutes of Health. 2001: NIH Publication No. 01-3305. 2. An International Atherosclerosis Society position paper: global recommendations for the management of dyslipidemia: executive summary, Atherosclerosis. 2014: 232(2):410-413. Performed By: #### 2 4331-1 ####[facility] LABCLIA [id number] [place] [address] [place] Cholesterol in VLDL [Mass/Vol] 13 mg/dL Normal <30 [facility] Comment on above: Order Comment: Speci men Type: BLOOD SPECIMENOrdering Facility: [facility] Address: [address] [place] [address] Performed By: #### 2 4331-1 ####[facility] LABCLIA [id number] [place] [address] [place] Cholesterol non HDL [Mass/Vol] 134 mg/dL High <130 [facility] Comment on above: Order Comment: Raoul owen Type: BLOOD SPECIMENOrdering Facility: [facility] Address: [address] [place] [address] Result Comment: <130 mg/dL, Optimal 130-159 mg/dL, Near optimal/above optimal 160-189 mg/dL, Borderline high 190-219 mg/dL, High >219 mg/dL, Very high Secondary prevention optimal non HDL Cholesterol levels are recommended to be <100 mg/dL Performed By: #### 2 4331-1 ####[facility] LABCLIA [id number] [place] [id number] [place] Cholesterol.total/Shani sterol in HDL [Mass ratio] 3.31 {ratio} Normal <5.10 [facility] Comment on above: Order Comment: Razi men Type: BLOOD SPECIMENOrdering Facility: [facility] Address: [address] [place] [address] Performed By: #### 2 4331-1 ####[facility] LABIA [id number] [address] [place] [address] [place] FASTING TIME 12 hrs Normal [facility] Comment on above: Order Comment: Speci men Type: BLOOD SPECIMENOrdering Facility: [facility] Address: [address] [place], [place] [address] Performed By: #### 2 4331-1 ####[facility] [id number] [address] [place] [address] [place] [address] [facility] Triglyceride [Mass/Vol] 77 mg/dL Normal <150 [facility] Comment on above: Order Comment: Speci men Type: BLOOD SPECIMENOrdering Facility: [facility] Address: [address] [place] [address] Result Comment: <150 mg/dL, Normal 150-199 mg/dL, Borderline high 200-499 mg/dL, High >499 mg/dL, Very high Performed By: #### 2 4331-1 ####[facility] [id number] [place] [id number] [place] [facility] 25(OH)D3 [facility] 2024 25-hydroxyvitamin D3 [Mass/Vol] 71.0 ng/mL Normal 31.0-80.0 [facility] Comment on above: Order Comment: Speci men Type: BLOOD SPECIMENOrdering Facility: [facility] Address: [address] [place] [address] Result Comment: Clas sification of 25 [place] Vitamin D status: Deficiency/Insufficiency: < or = 30 ng/ml. Sufficiency/Optimal Levels: 31-80 ng/mL Toxicity: > 100 ng/mL. Test performed by chemiluminescent immunoassay. Performed By: #### 1 989-3 ####[facility] LABIA [id number] [address] [place] [address] [place] CBC W Auto Differential pane l (Bld)on 03-19-2025 Basophils (Bld) [#/Vol] 0.04 10*3/uL Normal <0.11 [facility] Comment on above: Order Comment: Speci men Type: BLOOD SPECIMENOrdering Facility: [facility] Address: [address] [place] [address] Performed By: #### 5 7021-8 ####[facility] LABCLIA [id number] [address] [place] Basophils/100 WBC (Bld) 0.5 % Normal [facility] Comment on above: Order Comment: Speci men Type: BLOOD SPECIMENOrdering Facility: [facility] Address: [address] [place] [address] Performed By: #### 5 7021-8 ####[facility] LABCLIA [id number] [address], [place] [address] [place] Differential cell count method Nom (Bld) Auto Normal [facility] Comment on above: Order Comment: Speci men Type: BLOOD SPECIMENOrdering Facility: [facility] Address: [address] [place] [address] Performed By: #### 5 7021-8 ####[facility] LABCLIA [id number] [place] [address] [place] Eosinophils (Bld) [#/Vol] 0.22 10*3/uL Normal <0.46 [facility] Comment on above: Order Comment: Speci men Type: BLOOD SPECIMENOrdering Facility: [facility] Address: [address] [place] [address] Performed By: #### 5 7021-8 ####[facility] LABCLIA [id number] [address] [place] Eosinophils/100 WBC (Bld) 2.8 % Normal [facility] Comment on above: Order Comment: Speci men Type: BLOOD SPECIMENOrdering Facility: [facility] Address: [address] [place] [address] Performed By: #### 5 7021-8 ####[facility] LABCLIA [id number] [place] [address] [place] Erythrocyte distribution width (RBC) [Ratio] 18.2 % High 11.5-15.0 [facility] Comment on above: Order Comment: Speci men Type: BLOOD SPECIMENOrdering Facility: [facility] Address: [address] [place] [address] Performed By: #### 5 7021-8 ####[facility] LABIA [id number] [place] [address] [place] Hematocrit (Bld) [Volume fraction] 32.4 % Low 36.0-46.0 [facility] Comment on above: Order Comment: Speci men Type: BLOOD SPECIMENOrdering Facility: [facility] Address: [address] [place] [address] Performed By: #### 5 7021-8 ####[facility] LABIA [id number] [place] [address] [place] Hemoglobin (Bld) [Mass/Vol] 9.6 g/dL Low 11.5-15.5 [facility] Comment on above: Order Comment: Speci men Type: BLOOD SPECIMENOrdering Facility: [facility] Address: [address] [place] [address] Performed By: #### 5 7021-8 ####[facility] LABIA [id number] [place] [address] [place] Immature granulocytes (Bld) [#/Vol] 10*3/uL Normal <0.10 [facility] Comment on above: Order Comment: Speci men Type: BLOOD SPECIMENOrdering Facility: [facility] Address: [address] [place] [address] Performed By: #### 5 7021-8 ####[facility] LABIA [id number] [place] [address] [place] Immature granulocytes/100 WBC (Bld) 0.3 % Normal [facility] Comment on above: Order Comment: Speci men Type: BLOOD SPECIMENOrdering Facility: [facility] Address: [address] [place] [address] Performed By: #### 5 7021-8 ####[facility] LABCLIA [id number] [place] [address] [place] Lymphocytes (Bld) [#/Vol] 1.77 10*3/uL Normal 1.00-4.00 [facility] Comment on above: Order Comment: Speci men Type: BLOOD SPECIMENOrdering Facility: [facility] Address: [address] [place] [address] Performed By: #### 5 7021-8 ####[facility] LABCLIA [id number] [place] [address] [place] Lymphocytes/100 WBC (Bld) 22.3 % Normal [facility] Comment on above: Order Comment: Speci men Type: BLOOD SPECIMENOrdering Facility: [facility] Address: [address] [place] [address] Performed By: #### 5 7021-8 ####[facility] LABCLIA [id number] [place] [address] [place] MCH (RBC) [Entitic mass] 23.1 pg Low 26.0-34.0 [facility] Comment on above: Order Comment: Speci men Type: BLOOD SPECIMENOrdering Facility: [facility] Address: [address] [place] [address] Performed By: #### 5 7021-8 ####[facility] LABCLIA [id number] [place] [address] [place] MCHC (RBC) [Mass/Vol] 29.6 g/dL Low 30.5-36.0 [facility] Comment on above: Order Comment: Speci men Type: BLOOD SPECIMENOrdering Facility: [facility] Address: [address] [place] [address] Performed By: #### 5 7021-8 ####[facility] LABCLIA [id number] [place] [address] [place] MCV (RBC) [Entitic vol] 77.9 fL Low 80.0-100.0 [facility] Comment on above: Order Comment: Speci men Type: BLOOD SPECIMENOrdering Facility: [facility] Address: [address] [place] [address] Performed By: #### 5 7021-8 ####[facility] LABCLIA [id number] [place] [address] [place] Monocytes (Bld) [#/Vol] 0.69 10*3/uL Normal <0.87 [facility] Comment on above: Order Comment: Speci men Type: BLOOD SPECIMENOrdering Facility: [facility] Address: [address] [place] [address] Performed By: #### 5 7021-8 ####[facility] LABIA [id number] [place] [address] [place] Monocytes/100 WBC (Bld) 8.7 % Normal [facility] Comment on above: Order Comment: Speci men Type: BLOOD SPECIMENOrdering Facility: [facility] Address: [address] [place] [address] Performed By: #### 5 7021-8 ####[facility] LABCLIA [id number] [place] [address] [place] Neutrophils (Bld) [#/Vol] 5.19 10*3/uL Normal 1.45-7.50 [facility] Comment on above: Order Comment: Speci men Type: BLOOD SPECIMENOrdering Facility: [facility] Address: [address] [place] [address] Performed By: #### 5 7021-8 ####[facility] LABIA [id number] [place] [address] [place] Neutrophils/100 WBC (Bld) 65.4 % Normal [facility] Comment on above: Order Comment: Speci men Type: BLOOD SPECIMENOrdering Facility: [facility] Address: [address] [place] [address] Performed By: #### 5 7021-8 ####[facility] LABCLIA [id number] [facility] [address], [place] [address] [place] Nucleated RBC (Bld) [#/Vol] 10*3/uL Normal <0.01 [facility] Comment on above: Order Comment: Speci men Type: BLOOD SPECIMENOrdering Facility: [facility] Address: [address] [place] [address] Performed By: #### 5 7021-8 ####[facility] LABCLIA [id number] [address], [place] [address] [place] Nucleated RBC/100 WBC (Bld) [Ratio] 0.0 /100 WBC Normal [facility] Comment on above: Order Comment: Speci men Type: BLOOD SPECIMENOrdering Facility: [facility] Address: [address] [place] [address] Performed By: #### 5 7021-8 ####[facility] LABCLIA [id number] [address] [place] Platelet mean volume (Bld) [Entitic vol] 10.4 fL Normal 9.0-12.7 [facility] Comment on above: Order Comment: Speci men Type: BLOOD SPECIMENOrdering Facility: [facility] Address: [address] [place] [address] Performed By: #### 5 7021-8 ####[facility] LABCLIA [id number] [place] [id number] [place] Platelets (Bld) [#/Vol] 396 10*3/uL Normal 150-400 [facility] Comment on above: Order Comment: Speci men Type: BLOOD SPECIMENOrdering Facility: [facility] Address: [address] [place] [address] Performed By: #### 5 7021-8 ####[facility] LABIA [id number] [address] [address] [place] RBC (Bld) [#/Vol] 4.16 10*6/uL Normal 3.90-5.20 [facility] Comment on above: Order Comment: Speci men Type: BLOOD SPECIMENOrdering Facility: [facility] Address: [address] [place] [address] Performed By: #### 5 7021-8 ####[facility] LABIA [id number] [place] [id number] [place] WBC (Bld) [#/Vol] 7.93 10*3/uL Normal 3.70-11.00 [facility] Comment on above: Order Comment: Speci men Type: BLOOD SPECIMENOrdering Facility: [facility] Address: [address] [place] [address] Performed By: #### 5 7021-8 ####[facility] [id number] [place] [id number] [place] Comprehensive metabolic 2000 panelon 03-19-2025 Albumin [Mass/Vol] 4.0 g/dL Normal 3.9-4.9 [facility] Comment on above: Order Comment: Speci men Type: BLOOD SPECIMENOrdering Facility: [facility] Address: [address] [place] [address] Performed By: #### 2 4323-8, 3024-7, 3016-3, 3051-0 ####[facility] [id number] [place] [id number] [place] ALP [Catalytic activity/Vol] 85 U/L Normal 34-123 [facility] Comment on above: Order Comment: Speci men Type: BLOOD SPECIMENOrdering Facility: [facility] Address: [address] [place] [address] Performed By: #### 2 4323-8, 3024-7, 3016-3, 3051-0 ####[facility] LABCLIA [id number] [address] [address] [place] ALT [Catalytic activity/Vol] 24 U/L Normal 7-38 [facility] Comment on above: Order Comment: Speci men Type: BLOOD SPECIMENOrdering Facility: [facility] Address: [address] [place] [address] Performed By: #### 2 4323-8, 3024-7, 3016-3, 3051-0 ####[facility] LABCLIA [id number] [address] [address] [place] Anion gap [Moles/Vol] 10 mmol/L Normal 8-15 [facility] Comment on above: Order Comment: Speci men Type: BLOOD SPECIMENOrdering Facility: [facility] Address: [address] [place] [address] Performed By: #### 2 4323-8, 3024-7, 3016-3, 3051-0 ####[facility] LABIA [id number] [address] [address] [place] AST [Catalytic activity/Vol] 24 U/L Normal 13-35 [facility] Comment on above: Order Comment: Speci men Type: BLOOD SPECIMENOrdering Facility: [facility] Address: [address] [place] [address] Performed By: #### 2 4323-8, 3024-7, 3016-3, 3051-0 ####[facility] LABIA [id number] [address] [address] [place] Bilirubin [Mass/Vol] 0.2 mg/dL Normal 0.2-1.3 [facility] Comment on above: Order Comment: Speci men Type: BLOOD SPECIMENOrdering Facility: [facility] Address: [address] [place], [place] [address] Performed By: #### 2 4323-8, 3024-7, 3016-3, 3051-0 ####[facility] LABCLIA [id number] [address] [address] [place] Calcium [Mass/Vol] 10.0 mg/dL Normal 8.5-10.2 [facility] Comment on above: Order Comment: Speci men Type: BLOOD SPECIMENOrdering Facility: [facility] Address: [address] [place], [place] [address] Performed By: #### 2 4323-8, 3024-7, 3016-3, 3051-0 ####[facility] LABCLIA [id number] [address] [address] [place] Chloride [Moles/Vol] 100 mmol/L Normal 98-107 [facility] Comment on above: Order Comment: Speci men Type: BLOOD SPECIMENOrdering Facility: [facility] Address: [address] [place], [place] [address] Performed By: #### 2 4323-8, 3024-7, 3016-3, 3051-0 ####[facility] LABIA [id number] [address] [address] [place] CO2 [Moles/Vol] 27 mmol/L Normal 22-30 [facility] Comment on above: Order Comment: Speci men Type: BLOOD SPECIMENOrdering Facility: [facility] Address: [address] [place] [address] Performed By: #### 2 4323-8, 3024-7, 3016-3, 3051-0 ####[facility] LABIA [id number] [address] [address] [place] Creatinine [Mass/Vol] 0.94 mg/dL Normal 0.58-0.96 [facility] Comment on above: Order Comment: Speci men Type: BLOOD SPECIMENOrdering Facility: [facility] Address: [address] [place] [address] Performed By: #### 2 4323-8, 3024-7, 3016-3, 3051-0 ####[facility] LABIA [id number] [place] [id number] [place] eGFRcr SerPlBld CKD-EPI 2020 61 mL/min/1.73m??? Normal >=60 [facility] Comment on above: Order Comment: Raoul owen Type: BLOOD SPECIMENOrdering Facility: [facility] Address: [address] [place] [address] Result Comment: Cristy mated Glomerular Filtration Rate (eGFR) is calculated using the 2020 CKD-EPI creatinine equation. This equation utilizes serum creatinine, sex, and age as parameters. The creatinine assay has traceable calibration to isotope dilution-mass spectrometry. Refer to KDIGO guidelines for clinical interpretation. In patients with unstable renal function, e.g. those with acute kidney injury, the eGFR may not accurately reflect actual GFR. Performed By: #### 2 4323-8, 3024-7, 6-3, 3051-0 ####[facility] LABCLIA [id number] [place] [id number] [place] Glucose [Mass/Vol] 82 mg/dL Normal 74-99 [facility] Comment on above: Order Comment: Raoul owen Type: BLOOD SPECIMENOrdering Facility: [facility] Address: [address] [place] [address] Result Comment: The [place] Diabetes Association (ADA) provides guidance for cutoff values for fasting glucose and random glucose. The ADA defines fasting as no caloric intake for at least 8 hours. Fasting plasma glucose results between 100 to 125 mg/dL indicate increased risk for diabetes (prediabetes). Fasting plasma glucose results greater than or equal to 126 mg/dL meet the criteria for diagnosis of diabetes. In the absence of unequivocal hyperglycemia, results should be confirmed by repeat testing. In a patient with classic symptoms of hyperglycemia or hyperglycemic crisis, random plasma glucose results greater than or equal to 200 mg/dL meet the criteria for diagnosis of diabetes. Reference: Standards of Medical Care in Diabetes 2016, [place] Diabetes Association. Diabetes Care. 2016.39(Suppl 1). Performed By: #### 2 4323-8, 3024-7, 3016-3, 3051-0 ####[facility] LABCLIA [id number] [address] [address] [place] Potassium [Moles/Vol] 4.5 mmol/L Normal 3.7-5.1 [facility] Comment on above: Order Comment: Speci men Type: BLOOD SPECIMENOrdering Facility: [facility] Address: [address] [place] [address] Performed By: #### 2 4323-8, 7, 3016-3, 3051-0 ####[facility] LABIA [id number] [address] [address] [place] Protein [Mass/Vol] 6.9 g/dL Normal 6.3-8.0 [facility] Comment on above: Order Comment: Speci men Type: BLOOD SPECIMENOrdering Facility: [facility] Address: [address] [place], [place] [address] Performed By: #### 2 4323-8, 7, 3016-3, 3051-0 ####[facility] LABIA [id number] [address] [address] [place] Sodium [Moles/Vol] 137 mmol/L Normal 136-144 [facility] Comment on above: Order Comment: Speci men Type: BLOOD SPECIMENOrdering Facility: [facility] Address: [address] [place] [address] Performed By: #### 2 4323-8, 3023-7, 3016-3, 3051-0 ####[facility] LABIA [id number] [address] [address] [place] Urea nitrogen [Mass/Vol] 15 mg/dL Normal 7-21 [facility] Comment on above: Order Comment: Speci men Type: BLOOD SPECIMENOrdering Facility: [facility] Address: [address] [place] [address] Performed By: #### 2 4323-8, 3024-7, 3016-3, 3051-0 ####[facility] LABCLIA [id number] [address] [place] [address] [place] T3Free SerPl-mCncon 03-19-20 25 Free T3 [Mass/Vol] 2.2 pg/mL Low 2.3-4.1 [facility] Comment on above: Order Comment: Speci men Type: BLOOD SPECIMENOrdering Facility: [facility] Address: [address] [place] [address] Performed By: #### 2 4323-8, 3024-7, 3016-3, 3051-0 ####[facility] LABCLIA [id number] [place] [id number] [place] T4 Free SerPl-ncon 025 Free T4 [Mass/Vol] 1.3 ng/dL Normal 0.9-1.7 [facility] Comment on above: Order Comment: Speci men Type: BLOOD SPECIMENOrdering Facility: [facility] Address: [address] [place] [address] Performed By: #### 2 4323-8, 3024-7, 3016-3, 3051-0 ####[facility] LABCLIA [id number] [address] [address] [place] TSH SerPl-aCncon 03-19-2025 TSH Qn 5.860 m[IU]/L High 0.270-4.200 [facility] Comment on above: Order Comment: Speci men Type: BLOOD SPECIMENOrdering Facility: [facility] Address: [address] [place], [place] [address] Performed By: #### 2 4323-8, 3024-7, 3016-3, 3051-0 ####[facility] LABCLIA [id number] [address] [address] [place] Thyroglobulin and Thyrogobul in Ab panelon 03-19-2025 Thyroglobulin Ab Qn [IU]/mL Normal <4.0 [facility] Comment on above: Order Comment: Specsavannah owen Type: BLOOD SPECIMENOrdering Facility: [facility] Address: [address] [place] [address] Result Comment: The Thyroglobulin Antibody test was performed using the Abrahan SeeMe Unicel DXI paramagnetic particle chemiluminescent immunoassay method. Results obtained with different assay methods or kits cannot be used interchangeably. Performed By: #### 5 7780-9 ####[facility] LABCLIA [id number] [place] [address] [place] THYROGLOBULIN, SERUM 2.7 ng/mL Normal 1.6-50.0 [facility] Comment on above: Order Comment: Raoul owen Type: BLOOD SPECIMENOrdering Facility: [facility] Address: [address] [place] [address] Result Comment: The Thyroglobulin test was performed using the Abrahan Greg Unicel DXI paramagnetic particle chemiluminescent immunoassay method. Results obtained with different assay methods or kits cannot be used interchangeably. Performed By: #### 5 7780-9 ####[facility] LABCLIA [id number] [place] [address] [place] Pulmonary Visit Reporton Pulmonary Visit Report [facility] [address] [place] [address] OFFICE VISIT Date of Service: 03/18/25 MR#: [id number] Acct: [id number] Name: MAVERICKMARIETTA C Rep #: [id number] : 1945 Provider: KAMILLE Johnson Age/Sex: 80/F [facility] [place]: Signed Assessment and Plan Assessment and Plan (1) COPD (chronic obstructive pulmonary disease): Status: Chronic Qualifiers: COPD type: COPD with acute exacerbation Qualified Code(s): J44.1 - Chronic obstructive pulmonary disease with (acute) exacerbation Plan: Deteriorated. I believe she really has more of an asthma/COPD overlap syndrome, despite the last pulmonary function test indicating a reversibility. I am going to try to optimize her symptom control by adding an antihistamine. She does have postnasal drip but has failed Flonase as she suffered significant nosebleeds. Continue maintenance medication Advair with the use of a spacer. No additional testing today. Follow-up in the office in 6 months. Contact the office with any new or worsening symptoms in the meantime. (2) Hoarseness: Status: Acute Plan: I believe this is secondary to uncontrolled seasonal allergies. I am placing her on an antihistamine. She did have reservations about taking another pill. Initially, I was also going to place her on Flonase. However, the patient reports that she is not open to taking any nasal sprays as she has previously had trouble with nasal bleeds and is on anticoagulation. We will proceed with the antihistamine and reevaluate symptoms. Medications: New cetirizine 10 mg PO DAILY PRN 90 tabs 3RF allergy symptoms Plan Details Additional Comments: This note was generated with [employer] dictation software. It may contain incorrect words, spelling, and punctuation that were not noted in checking the note before signing. Follow Up: 6 Months HPI 6 M F/U Chief Complaint: routine follow up HPI Comments Details: This patient presents to the office today for follow-up of her COPD. She is ambulatory and on room air. She has not recently been seen in the ED or urgent care for any respiratory illness. She has not required any antibiotics or prednisone for any breathing problems. If you recall, she quit smoking back in the year 1999. She is compliant with Advair twice daily with the use of a spacer. She does report rinsing her mouth out after each use. She has not recently needed her albuterol rescue inhaler. She does have shortness of breath on exertion. However, she is a very active person golfing, bowling and participating in water aerobics 3 times weekly. She has a daily cough productive of clear to clear sputum. She is experiencing sinus drainage and chest congestion. She has had wheezing recently but denies any, chest pain or palpitations. Intake Vital Signs 09/18/24 10:11 03/18/25 08:24 Height 5 ft 4 in 5 ft 4 in Weight: 193 lb BMI 33.1 BP 149/65 H Blood Pressure Location Lt brachial Position Sitting Respiration 16 Pulse 74 Pulse Source Monitor Temp 97.3 F L Temperature Source Temporal Artery Pulse Oximetry (%) 97 Oxygen Delivery Method room air Intake Visit Reasons: 6 M F/U Chief Complaint: FU chronic respiratory conditions Allergies Sulfa (Sulfonamide Antibiotics) Allergy (Verified 12/31/24 10:33) Rash codeine Adverse Reaction (Verified 12/31/24 10:33) Nausea Medications ???Medication ???Instructions ???Recorded ???Confirmed ???Type conjugated estrogens 0.625 mg/gram 1 dose vaginal .COMPLEX dryness 10/09/13 03/18/25 History vaginal cream magnesium oxide 200 mg PO DAILY supplement 10/23/2 0 03/18/25 History multivitamin 1 cap PO DAILY vitamin 10/24/19 History triamterene 37.5 1 tab PO QODAY diuretic 07/16/21 0 03/18/25 History mg-hydrochlorothiazi de 25 mg tablet cholecalciferol (vitamin D3) 50 50 mcg PO DAILY vitamin 01/07/23 0 03/18/25 History mcg (2,000 unit) tablet coenzyme Q10 10 mg capsule 10 mg PO ONCE supplement 01/07/23 03/18/25 History levothyroxine 112 mcg tablet 112 mcg PO DAILY thyroid 01/07/23 03/18/25 History spacer #1 ea 02/22/23 12/31/24 Rx spacer #1 ea 03/21/23 12/31/24 Rx lactobacillus combination no.4 3 3,000 mmu cells PO DAILY supplemen t 08/15/24 03/18/25 History billion cell capsule (Probiotic) fluticasone propionate 230 2 inh inhalation BID breathing #3 09/18/24 03/18/25 Rx mcg-salmeterol 21 mcg/actuation ea HFA inhaler (Advair HFA) metoprolol succinate 50 mg 50 mg PO BID blood pressure 90 03/18/25 Rx tablet,extended release 24 hr days #180 tabs apixaban 5 mg tablet (Eliquis) 5 mg PO BID blood thinner 12/31/24 03/18/25 History Held on 01/04/25. Instructions: Resume on 01/14/25. losartan 100 mg ta (more content not included)... Normal [facility] [place] 03-11-2025 [facility] Telephone (INTMWS) MAVERICKMARIETTA ([id number]) 1945 F Date Time Provider Department 03/11/25 [facility] INTJULIANNA During your visit today, we recorded the following information about you: Destini Bee 03/11/2025 1:33 PM Signed In speaking with patient to reschedule her wellness visit, patient is asking if labs can be drawn prior to her appointment on 04/02. Please advise. Guillermo Vale APRN.IS CONSULTANT 03/12/2025 1:01 PM Signed OK orders in Holly Liang LPN 03/12/2025 1:40 PM Signed Patient notified that labs have been placed Allergies As of Date: 03/11/2025 Noted Allergy Reaction CODEINE 04/30/2005 8 - GI Upset Comments: Other reaction(s): Nausea SULFA (SULFONAMIDE ANTIBIOTICS) 11/04/2004 2 - Rash Comments: UNSURE OF REACTION Date Reviewed: 01/07/2025 Reviewed by: Holly Liang LPN - Fully Assessed Reason for Visit: Orders [681] Primary Visit Diagnosis:High serum thyroglobulin [R77.8] Other Visit Diagnoses:History of thyroid cancer [Z85.850] Hypothyroidism, postsurgical [E89.0] Essential hypertension with goal blood pressure less than 140/90 [I10] Hypocalcemia [E83.51] Essential hypertension [I10] Dysmetabolic syndrome X [E88.810] Vitamin D deficiency [E55.9] Order(s):COMPREHENSI VE METABOLIC PANEL [SQCMP] Order #: [id number] FUTURE COMPLETE BLOOD COUNT AND DIFFERENTIAL [SQCBCDIF] Order #: [id number] FUTURE THYROGLOBULIN, SERUM WITH REFLEX TO IA OR LC-MS/MS [SQTHYRORF] Order #: [id number] FUTURE VITAMIN D 25 HYDROXY [SQVITD] Order #: [id number] FUTURE THYROID STIMULATING HORMONE [SQTSH] Order #: [id number] FUTURE T4 FREE/FREE THYROXINE [SQFT4] Order #: [id number] FUTURE T3, FREE [SQFREET3] Order #: [id number] FUTURE LIPID PANEL, FASTING [SQLIPB] Order #: [id number] FUTURE Prescriptions as of 03/12/2025 - levothyroxine (SYNTHROID) 112 mcg tablet Take 1 tablet by mouth once daily. Take on empty stomach. For thyroid - iron polysaccharide complex (FERREX-150) 150 mg iron capsule once daily. - pantoprazole DR (PROTONIX) 40 mg tablet Take 1 tablet by mouth once daily. - metoprolol succinate ER (TOPROL XL) 50 mg 24 hr tablet Take 50 mg by mouth two times a day. - triamterene-hydroCHL OROthiazide (MAXZIDE-25) 37.5-25 mg per tablet Take 1 tab on every other day and the other days take 2 tabs - losartan (COZAAR) 100 mg tablet Take 1 tablet by mouth once daily. DOSE CHANGE, take one daily - conjugated estrogens (PREMARIN) vaginal cream Use small amount at vaginal opening twice a week - meclizine (ANTIVERT) 25 mg tab Take 1 tablet by mouth three times daily. - Multivitamin capsule Take 1 capsule by mouth once daily. - magnesium oxide 200 mg magnesium tab Take 1 tablet by mouth once daily. - cholecalciferol (VITAMIN D3) 50 mcg (2,000 unit) tablet Take 2,000 Units by mouth once daily. - coenzyme Q10 (COENZYME Q-10) 100 mg cap capsule Take 100 mg by mouth once daily. Problem List As Of Date 03/11/2025 Noted Resolved FEMALE STRESS INCONTINENCE [N39.3] 11/04/2004 03/03/2009 UTERVAGINAL PROLAPSE NOS [N81.4] 11/04/2004 03/03/2009 TOX UNINOD GOIT NO NOREEN [E05.10] 04/30/2005 09/09/2006 Thyroid cancer [C73] 07/16/2005 Essential hypertension [I10] DYSMETABOLIC SYNDROME X [E88.810] 08/24/2007 RECTOCELE [N81.6] 02/29/2008 03/03/2009 RECTOCELE [N81.6] 03/03/2009 VAGINAL ENTEROCELE [N81.5] 03/03/2009 Cystocele, midline [N81.11] 11/03/2011 Indeterminate pulmonary nodules [R91.8] 12/18/2012 Hypothyroidism, postsurgical [E89.0] High serum thyroglobulin [R77.8] 12/20/2018 Meningioma (HCC) [D32.9] 03/02/2019 Heart palpitations [R00.2] 10/21/2019 Chronic right-sided low back pain without sciat*10/21/2019 History of thyroid cancer [Z85.850] 10/21/2019 Atrial flutter by electrocardiogram (HCC) [I48.*05/05/2021 Vertigo [R42] 05/05/2021 Encounter Status:Closed by HOLLY LIANG on 03/12/25 Normal [facility] CBC panel Auto (Bld)on 01-21 Erythrocyte distribution width (RBC) [Ratio] 17.1 % High 11.5-15.0 [facility] Comment on above: Order Comment: Speci men Type: BLOOD SPECIMENOrdering Facility: [facility] Address: [address] [place] [address] Performed By: #### 5 8410-2 ####[facility] [id number] [place] [address] [place] Hematocrit (Bld) [Volume fraction] 32.2 % Low 36.0-46.0 [facility] Comment on above: Order Comment: Speci men Type: BLOOD SPECIMENOrdering Facility: [facility] Address: [address] [place] [address] Performed By: #### 5 8410-2 ####[facility] [id number] [place] [address] [place] Hemoglobin (Bld) [Mass/Vol] 9.4 g/dL Low 11.5-15.5 [facility] Comment on above: Order Comment: Speci men Type: BLOOD SPECIMENOrdering Facility: [facility] Address: [address] [place] [address] Performed By: #### 5 8410-2 ####[facility] LABIA [id number] [place] [address] [place] MCH (RBC) [Entitic mass] 25.0 pg Low 26.0-34.0 [facility] Comment on above: Order Comment: Speci men Type: BLOOD SPECIMENOrdering Facility: [facility] Address: [address] [place] [address] Performed By: #### 5 8410-2 ####[facility] LABIA [id number] [place] [address] [place] MCHC (RBC) [Mass/Vol] 29.2 g/dL Low 30.5-36.0 [facility] Comment on above: Order Comment: Speci men Type: BLOOD SPECIMENOrdering Facility: [facility] Address: [address] [place] [address] Performed By: #### 5 8410-2 ####[facility] [id number] [place] [address] [place] MCV (RBC) [Entitic vol] 85.6 fL Normal 80.0-100.0 [facility] Comment on above: Order Comment: Speci men Type: BLOOD SPECIMENOrdering Facility: [facility] Address: [address] [place] [address] Performed By: #### 5 8410-2 ####[facility] [id number] [address] [place] Nucleated RBC (Bld) [#/Vol] 10*3/uL Normal <0.01 [facility] Comment on above: Order Comment: Speci men Type: BLOOD SPECIMENOrdering Facility: [facility] Address: [address] [place] [address] Performed By: #### 5 8410-2 ####[facility] [id number] [place] [address] [place] Platelet mean volume (Bld) [Entitic vol] 10.6 fL Normal 9.0-12.7 [facility] Comment on above: Order Comment: Speci men Type: BLOOD SPECIMENOrdering Facility: [facility] Address: [address] [place] [address] Performed By: #### 5 8410-2 ####[facility] LABCLIA [id number] [facility] [place] [address] [place] Platelets (Bld) [#/Vol] 449 10*3/uL High 150-400 [facility] Comment on above: Order Comment: Speci men Type: BLOOD SPECIMENOrdering Facility: [facility] Address: [address] [place] [address] Performed By: #### 5 8410-2 ####[facility] LABCLIA [id number] [place] [address] [place] RBC (Bld) [#/Vol] 3.76 10*6/uL Low 3.90-5.20 [facility] Comment on above: Order Comment: Speci men Type: BLOOD SPECIMENOrdering Facility: [facility] Address: [address] [place] [address] Performed By: #### 5 8410-2 ####[facility] LABCLIA [id number] [place] [address] [place] WBC (Bld) [#/Vol] 7.41 10*3/uL Normal 3.70-11.00 [facility] Comment on above: Order Comment: Speci men Type: BLOOD SPECIMENOrdering Facility: [facility] Address: [address] [place] [address] Performed By: #### 5 8410-2 ####[facility] LABCLIA [id number] [address] [address] [place] Comprehensive metabolic 2000 panelon 01-21-2025 Albumin [Mass/Vol] 4.1 g/dL Normal 3.9-4.9 [facility] Comment on above: Order Comment: Speci men Type: BLOOD SPECIMENOrdering Facility: [facility] Address: [address] [id number] Performed By: #### 1 23-9, 36946-4 ####[facility] LABCLIA [id number] [address] [address] [place] ALP [Catalytic activity/Vol] 88 U/L Normal 34-123 [facility] Comment on above: Order Comment: Speci men Type: BLOOD SPECIMENOrdering Facility: [facility] Address: [address] [place], [place] [address] Performed By: #### 1 9122-9, 74198-7 ####[facility] LABCLIA [id number] [place] [address] [place] ALT [Catalytic activity/Vol] 16 U/L Normal 7-38 [facility] Comment on above: Order Comment: Speci men Type: BLOOD SPECIMENOrdering Facility: [facility] Address: [address] [place], [place] [address] Performed By: #### 1 23-9, 34744-1 ####[facility] LABIA [id number] [place] [id number] [place] Anion gap [Moles/Vol] 13 mmol/L Normal 8-15 [facility] Comment on above: Order Comment: Speci men Type: BLOOD SPECIMENOrdering Facility: [facility] Address: [address] [place], [place] [address] Performed By: #### 1 23-9, 27681-5 ####[facility] LABCLIA [id number] [place] [address] [place] AST [Catalytic activity/Vol] 18 U/L Normal 13-35 [facility] Comment on above: Order Comment: Speci men Type: BLOOD SPECIMENOrdering Facility: [facility] Address: [address] [place], [place] [address] Performed By: #### 1 23-9, 30130-2 ####[facility] LABCLIA [id number] [address] [address] [place] Bilirubin [Mass/Vol] 0.2 mg/dL Normal 0.2-1.3 [facility] Comment on above: Order Comment: Speci men Type: BLOOD SPECIMENOrdering Facility: [facility] Address: [address] [place] [address] Performed By: #### 1 239, ####[facility] LABCLIA [id number] [address] [address] [place] Calcium [Mass/Vol] 10.1 mg/dL Normal 8.5-10.2 [facility] Comment on above: Order Comment: Speci men Type: BLOOD SPECIMENOrdering Facility: [facility] Address: [address] [place] [address] Performed By: #### 1 9123-04, ####[facility] LABCLIA [id number] [address] [address] [place] Chloride [Moles/Vol] 102 mmol/L Normal 98-107 [facility] Comment on above: Order Comment: Speci men Type: BLOOD SPECIMENOrdering Facility: [facility] Address: [address] [place] [address] Performed By: #### 1 239, ####[facility] LABCLIA [id number] [address] [address] [place] CO2 [Moles/Vol] 25 mmol/L Normal 22-30 [facility] Comment on above: Order Comment: Speci men Type: BLOOD SPECIMENOrdering Facility: [facility] Address: [address] [place], [place] [address] Performed By: #### 1 9123-9, ####[facility] LABCLIA [id number] [address] [address] [place] Creatinine [Mass/Vol] 0.99 mg/dL High 0.58-0.96 [facility] Comment on above: Order Comment: Raoul owen Type: BLOOD SPECIMENOrdering Facility: [facility] Address: [address] [place] [address] Performed By: #### 1 9123-9, 06819-8 ####[facility] LABCLIA [id number] [place] [address] [place] [facility] [place] Creatinine and Glomerular filtration rate.predicted panel (S/P/Bld) 58 mL/min/1.73m??? Low >=60 [facility] Comment on above: Order Comment: Raoul owen Type: BLOOD SPECIMENOrdering Facility: [facility] Address: [address] [place] [address] Result Comment: Cristy mated Glomerular Filtration Rate (eGFR) is calculated using the 2020 CKD-EPI creatinine equation. This equation utilizes serum creatinine, sex, and age as parameters. The creatinine assay has traceable calibration to isotope dilution-mass spectrometry. Refer to KDIGO guidelines for clinical interpretation. In patients with unstable renal function, e.g. those with acute kidney injury, the eGFR may not accurately reflect actual GFR. Performed By: #### 1 9123-9, ####[facility] LABCLIA [id number] [place] [address] [place] Glucose [Mass/Vol] 89 mg/dL Normal 74-99 [facility] Comment on above: Order Comment: Raoul owen Type: BLOOD SPECIMENOrdering Facility: [facility] Address: [address] [place] [address] Result Comment: The [place] Diabetes Association (ADA) provides guidance for cutoff values for fasting glucose and random glucose. The ADA defines fasting as no caloric intake for at least 8 hours. Fasting plasma glucose results between 100 to 125 mg/dL indicate increased risk for diabetes (prediabetes). Fasting plasma glucose results greater than or equal to 126 mg/dL meet the criteria for diagnosis of diabetes. In the absence of unequivocal hyperglycemia, results should be confirmed by repeat testing. In a patient with classic symptoms of hyperglycemia or hyperglycemic crisis, random plasma glucose results greater than or equal to 200 mg/dL meet the criteria for diagnosis of diabetes. Reference: Standards of Medical Care in Diabetes 2016, [place] Diabetes Association. Diabetes Care. 2016.39(Suppl 1). Performed By: #### 1 23-9, ####[facility] LABCLIA [id number] [address] [address] [place] Potassium [Moles/Vol] 4.2 mmol/L Normal 3.7-5.1 [facility] Comment on above: Order Comment: Speci men Type: BLOOD SPECIMENOrdering Facility: [facility] Address: [address] [place] [address] Performed By: #### 1 23-9, ####[facility] LABIA [id number] [address] [address] [place] Protein [Mass/Vol] 6.9 g/dL Normal 6.3-8.0 [facility] Comment on above: Order Comment: Speci men Type: BLOOD SPECIMENOrdering Facility: [facility] Address: [address] [place] [address] Performed By: #### 1 23-9, ####[facility] LABIA [id number] [place] [id number] [place] Sodium [Moles/Vol] 140 mmol/L Normal 136-144 [facility] Comment on above: Order Comment: Speci men Type: BLOOD SPECIMENOrdering Facility: [facility] Address: [address] [place] [address] Performed By: #### 1 23-9, ####[facility] LABIA [id number] [address] [address] [place] Urea nitrogen [Mass/Vol] 23 mg/dL High 7-21 [facility] Comment on above: Order Comment: Speci men Type: BLOOD SPECIMENOrdering Facility: [facility] Address: [address] [place] [address] Performed By: #### 1 9123-9, 30027-0 ####[facility] [id number] [place] [id number] [place] Magnesium SerPl-mCncon 01-21 Magnesium [Mass/Vol] 2.2 mg/dL Normal 1.7-2.3 [facility] Comment on above: Order Comment: Speci men Type: BLOOD SPECIMENOrdering Facility: [facility] Address: [address] [facility] [place] [address] Performed By: #### 1 9123-9, 30995-0 ####[facility] [id number] [address] [place] CNPCait [facility]-18-20[facility] MARIETTA TEMPLE ([id number]) 1945 F Date Time Provider Department 01/18/25 [facility]IKA P[facility] INTWS During your visit today, we recorded the following information about you: Desirae Sanderson 01/18/2025 10:11 AM Signed Patient requesting the following medication that is : ADVAIR HFA 230-21 mcg/actuation inhale Patient last seen 01-07-25 Further appointment scheduled: no PHARMACY: Andrew/Holly Brooks LPN 01/18/2025 11:01 AM Signed Called patient to discuss Advair prescription but she was not available. It appears we have never prescribe the inhaler. Spoke with and ask who prescribe the medication and he didn't know who prescribed it. Inhaler is in cartridge and he can't get it out. He states she uses it everyday. He also states that she needs another refill of something but doesn't remember what it is. He mentioned Protonix but if this is it we didn't prescribe this one either. He is going to talk to patient when she gets home and call us back Destini Hurley RN 01/18/2025 12:37 PM Signed Patient states that change management specialist prescribes this. Patient will contact that office for refills Destini Hurley RN Allergies As of Date: 01/18/2025 Noted Allergy Reaction CODEINE 04/30/2005 8 - GI Upset Comments: Other reaction(s): Nausea SULFA (SULFONAMIDE ANTIBIOTICS) 11/04/2004 2 - Rash Comments: UNSURE OF REACTION Date Reviewed: 01/07/2025 Reviewed by: Holly Liang LPN - Fully Assessed Reason for Visit: requesting medication that is [Other] Prescriptions as of 01/18/2025 - iron polysaccharide complex (FERREX-150) 150 mg iron capsule once daily. - pantoprazole DR (PROTONIX) 40 mg tablet Take 1 tablet by mouth once daily. - metoprolol succinate ER (TOPROL XL) 50 mg 24 hr tablet Take 50 mg by mouth two times a day. - triamterene-hydroCHL OROthiazide (MAXZIDE-25) 37.5-25 mg per tablet Take 1 tab on every other day and the other days take 2 tabs - losartan (COZAAR) 100 mg tablet Take 1 tablet by mouth once daily. DOSE CHANGE, take one daily - conjugated estrogens (PREMARIN) vaginal cream Use small amount at vaginal opening twice a week - levothyroxine (SYNTHROID) 112 mcg tablet Take 1 tablet by mouth once daily. Take on empty stomach. For thyroid - meclizine (ANTIVERT) 25 mg tab Take 1 tablet by mouth three times daily. - Multivitamin capsule Take 1 capsule by mouth once daily. - magnesium oxide 200 mg magnesium tab Take 1 tablet by mouth once daily. - cholecalciferol (VITAMIN D3) 50 mcg (2,000 unit) tablet Take 2,000 Units by mouth once daily. - coenzyme Q10 (COENZYME Q-10) 100 mg cap capsule Take 100 mg by mouth once daily. Problem List As Of Date 01/18/2025 Noted Resolved FEMALE STRESS INCONTINENCE [N39.3] 11/04/2004 03/03/2009 UTERVAGINAL PROLAPSE NOS [N81.4] 11/04/2004 03/03/2009 TOX UNINOD GOIT NO NOREEN [E05.10] 04/30/2005 09/09/2006 Thyroid cancer [C73] 07/16/2005 Essential hypertension [I10] DYSMETABOLIC SYNDROME X [E88.810] 08/24/2007 RECTOCELE [N81.6] 02/29/2008 03/03/2009 RECTOCELE [N81.6] 03/03/2009 VAGINAL ENTEROCELE [N81.5] 03/03/2009 Cystocele, midline [N81.11] 11/03/2011 Indeterminate pulmonary nodules [R91.8] 12/18/2012 Hypothyroidism, postsurgical [E89.0] High serum thyroglobulin [R77.8] 12/20/2018 Meningioma (HCC) [D32.9] 03/02/2019 Heart palpitations [R00.2] 10/21/2019 Chronic right-sided low back pain without sciat*10/21/2019 History of thyroid cancer [Z85.850] 10/21/2019 Atrial flutter by electrocardiogram (HCC) [I48.*05/05/2021 Vertigo [R42] 05/05/2021 Encounter Status:Closed by DESTINI HURLEY on 01/18/25 [facility] CNOVkang 01-07-2025 CNOV Office Visit (INTMWS) MARIETTA TEMPLE ([id number]) 1945 F Date Time Provider Department 01/07/25 10:00 AM [facility]IKA PARK INTMWS During your visit today, we recorded the following information about you: Pulse Respiration Blood pressure Weight 65/minute 16/minute 122/59 88.1 kg Marika Park MD 01/07/2025 10:57 AM Signed This note was created using NoteWriter. Subjective Marietta Temple is a 79 year old female. Patient presents with: Hospital F/U Marietta Temple is a 79-year-old female, with a history of diverticulitis, presenting for follow-up after a recent hospitalization for GI bleeding and severe anemia. Marietta was hospitalized at [facility] from December 31 to January 04 for GI bleeding and severe anemia, with a hemoglobin level of 5.8 g/dL on admission. During her hospital stay, she received 2 units of packed red blood cells, an iron infusion, and was placed on Protonix. An endoscopy was performed by Dr. 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 A hiatal hernia and a gastric lipoma were also identified. A colonoscopy revealed diverticuli, red blood in the cecum, and 2 large localized angiodysplastic lesions, which were treated with clips. Since discharge, Marietta has been experiencing significant swelling in her feet and ankles, which she attributes to the iron infusion and oral iron tablets she is currently taking. She reports that the swelling increases when she is upright and ambulating. She also notes weight gain, which she believes is primarily due to fluid retention. She denies any issues with swelling prior to her anemia and hospitalization. Marietta reports dark stools but denies hematochezia. She experiences occasional reflux, which she manages by avoiding overeating and certain foods. She denies persistent reflux. She also reports feeling bloated and describes her abdomen as big gut, noting that she felt after taking the iron. This bloating has subsided somewhat since returning home. Marietta reports fatigue, stating that she can work for about 10-15 minutes before needing to sit down. She also experiences neck, back, and leg pain, which she attributes to her anemia. She reports that her energy levels are slowly returning and that she feels better after taking a nap. She denies any issues with bowel movements and reports that her cramping before and after bowel movements has subsided. Marietta is currently holding her Eliquis for 2 weeks as per her discharge instructions. She has resumed her regular medications, including metoprolol. She reports that her blood pressure has been lower than usual since her anemia, with readings in the hospital as low as 48 mmHg. She notes that her normal diastolic blood pressure is usually in the 70s. Marietta also reports a hard area on her forearm where an IV was placed during her hospital stay. She describes the area as real hard and notes that it was uncomfortable. She reports that the IV was moved to a different location by a nurse. Marietta is concerned about her weight and asks for recommendations to help her lose weight. She reports that she eats a lot of vegetables and drinks coffee and water, but has a sweet tooth and occasionally eats ice cream. She also reports a craving for peanuts and eats a handful of dry roasted peanuts. She enjoys oatmeal and scrambled eggs and reports that she has been doing some exercises, including stretching and leg weights, in bed. She has a treadmill and a bic, ycle in her basement and expresses a desire to do water aerobics. PAST MEDICAL HISTORY Diagnosis Date Benign neoplasm of colon Cancer (HCC) Colon polyp Cystocele, midline Hemorrhage of gastrointestinal tract, unspecified Hypothyroidism, postsurgical Indeterminate pulmonary nodules 12/18/2012 CT stable 2009 through 10/2012. 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 pantoprazole DR (PROTONIX) 40 mg tablet Take 1 tablet by mouth once daily. metoprolol succinate ER (TOPROL XL) 50 mg 24 hr tablet Take 50 mg by mouth two times a day. triamterene-hydroCHL OROthiazide (MAXZIDE-25) 37.5-25 mg per tablet Take 1 tab on every other day and the (more content not included)... Normal [facility] Absolute lymphocyte countOrd ered By: Carrillo Strong on 01-04-2025 Lymphocytes Auto (Unsp spec) [#/Vol] 2.03 10*3/uL 0.83-4.51 [facility] Absolute neutrophil countOrd ered By: Carrillo Strong on 01-04-2025 Neutrophils (Bld) [#/Vol] 5.5 10*3/uL 2.0-7.7 [facility] Anion gap in Serum or Plasma Ordered By: Carrillo Strong on 01-04-2025 Anion gap [Moles/Vol] 10 mmol/L 5-15 [facility] Automated lymphocyte count a s percentage of total leukocytesOrdered By: Carrillo Strong on 01-04-2025 Lymphocytes/100 WBC Auto (Unsp spec) 23.4 % 19-41 [facility] BUN/creatinine ratioOrdered By: Carrillo Strong on 01-04-2025 Urea nitrogen/Creatinine [Mass ratio] 7.4 mg/mg Low 10- [facility] Basic Metabolic Profile (BMP )on 01-04-2025 BUN/CRE 7.4 RATIO Low - [facility] Comment on above: Performed By: #### L 500.2500, L100.0100 #### [facility] [address] [place], [address] Calcium [Mass/Vol] 8.9 mg/dL Normal 7.6-11.0 [facility] Comment on above: Performed By: #### L 500.2500, L100.0100 #### [facility] [address] [place], [address] Chloride [Moles/Vol] 106 mmol/L Normal 98-108 [facility] Comment on above: Performed By: #### L 500.2500, L100.0100 #### [facility] [address] [place], [address] CO2 [Moles/Vol] 24.0 mmol/L Normal 21.0-32.0 [facility] Comment on above: Performed By: #### L 500.2500, L100.0100 #### [facility] [address] [place], [address] Creatinine [Mass/Vol] 0.90 mg/dL Normal 0.70-1.20 [facility] Comment on above: Performed By: #### L 500.2500, L100.0100 #### [facility] [address] [place], [address] ECRCL 53.00 ml/min Normal 50-250 [facility] Comment on above: Performed By: #### L 500.2500, L100.0100 #### [facility] [address] [place], [address] GAP 10 Normal 5-15 [facility] Comment on above: Performed By: #### L 500.2500, L100.0100 #### [facility] [address] [place], [address] GFR/1.73 sq M.predicted among non-blacks MDRD (S/P/Bld) [Vol rate/Area] 65 mL/min/{1.73_m2} Normal >60 [facility] Comment on above: Result Comment: mL/m in/1.73m2 CKD-EPI Creatinine Equation (2020) Performed By: #### L 500.2500, L100.0100 #### [facility] [address] [place], [address] Glucose [Mass/Vol] 84 mg/dL Normal 70-99 [facility] Comment on above: Performed By: #### L 500.2500, L100.0100 #### [facility] [address] [place], [address] Potassium [Moles/Vol] 3.5 mmol/L Normal 3.3-5.1 [facility] Comment on above: Result Comment: Hemo lysis present, Results??could be affected. ?? Performed By: #### L 500.2500, L100.0100 #### [facility] [address] [place], [address] Sodium [Moles/Vol] 140 mmol/L Normal 133-145 [facility] Comment on above: Performed By: #### L 500.2500, L100.0100 #### [facility] [address] [place], [address] Urea nitrogen [Mass/Vol] 7 mg/dL Normal 4-19 [facility] Comment on above: Performed By: #### L 500.2500, L100.0100 #### [facility] [address] [place], [address] Basophil percentageOrdered B y: Carrillo Naseemradha on 01-04-2025 Basophils/100 WBC (Bld) 0.3 % 0-1 [facility] CBC W/Diff, Automatedon Absolute Lymph 2.03 X10 3/uL Normal 0.83-4.51 [facility] Comment on above: Performed By: #### L 500.2500, L100.0100 #### [facility] [address] [place], [address] Absolute Neut 5.5 X10 3/uL Normal 2.0-7.7 [facility] Comment on above: Performed By: #### L 500.2500, L100.0100 #### [facility] [address] [place], [address] Basophils/100 WBC (Bld) 0.3 % Normal 0-1 [facility] Comment on above: Performed By: #### L 500.2500, L100.0100 #### [facility] [address] [place], [address] Eosinophils/100 WBC (Bld) 1.6 % Normal 0-5 [facility] Comment on above: Performed By: #### L 500.2500, L100.0100 #### [facility] [address] [place], [address] Erythrocyte distribution width (RBC) [Ratio] 15.2 % High 11.6-14.6 [facility] Comment on above: Performed By: #### L 500.2500, L100.0100 #### [facility] [address] [place], [address] Hematocrit (Bld) [Volume fraction] 23.8 % Low 37-47 [facility] Comment on above: Performed By: #### L 500.2500, L100.0100 #### [facility] [address] [place], [address] Hemoglobin (Bld) [Mass/Vol] 7.5 g/dL Low 12.0-15.0 [facility] Comment on above: Performed By: #### L 500.2500, L100.0100 #### [facility] [address] [place], [address] IG% 0.700 Normal 0.0-0.9 [facility] Comment on above: Result Comment: IG% - Immature Granulocytes (promyelocytes, myelocytes and metamyelocytes) > 1% indicates that a LEFT SHIFT is Present. Performed By: #### L 500.2500, L100.0100 #### [facility] [address] [place], [address] Lymphocytes/100 WBC (Bld) 23.4 % Normal 19-41 [facility] Comment on above: Performed By: #### L 500.2500, L100.0100 #### [facility] [address] [place], [address] MCH (RBC) [Entitic mass] 25.6 pg Low 27.0-32.0 [facility] Comment on above: Performed By: #### L 500.2500, L100.0100 #### [facility] [address] [place], [address] MCHC (RBC) [Mass/Vol] 31.5 g/dL Low 32-36 [facility] Comment on above: Performed By: #### L 500.2500, L100.0100 #### [facility] [address] [place], [address] MCV (RBC) [Entitic vol] 81.2 fL Normal 81-99 [facility] Comment on above: Performed By: #### L 500.2500, L100.0100 #### [facility] [address] [place], [address] Monocytes/100 WBC (Bld) 10.3 % High 0-10 [facility] Comment on above: Performed By: #### L 500.2500, L100.0100 #### [facility] [address] [place], [address] Neutrophils/100 WBC (Bld) 63.7 % Normal 47-70 [facility] Comment on above: Performed By: #### L 500.2500, L100.0100 #### [facility] [address] [place], [address] Nucleated RBC (Bld) [#/Vol] 0 10*3/uL Normal 0-5 [facility] Comment on above: Performed By: #### L 500.2500, L100.0100 #### [facility] [address] [place], [address] Platelet mean volume (Bld) [Entitic vol] 10.3 fL Normal 6.2-12.0 [facility] Comment on above: Performed By: #### L 500.2500, L100.0100 #### [facility] [address] [place], [address] Platelets (Bld) [#/Vol] 335 10*3/uL Normal 150-450 [facility] Comment on above: Performed By: #### L 500.2500, L100.0100 #### [facility] [address] [place], [address] RBC (Bld) [#/Vol] 2.93 10*6/uL Low 4.2-5.4 [facility] Comment on above: Performed By: #### L 500.2500, L100.0100 #### [facility] [address] [place], [address] RDW SD 44.2 fl High 35.1-43.9 [facility] Comment on above: Performed By: #### L 500.2500, L100.0100 #### [facility] [address] [place], [address] WBC (Bld) [#/Vol] 8.7 10*3/uL Normal 4.4-11.0 [facility] Comment on above: Performed By: #### L 500.2500, L100.0100 #### [facility] [address] [place], [address] Carbon dioxide, total [Moles /volume] in Central venous bloodOrdered By: Carrillo Strong on 01-04-2025 CO2 [Moles/Vol] 24.0 mmol/L 21.0-32.0 [facility] Chloride assayOrdered By: Eliu Strong on 01-04-2025 Chloride [Moles/Vol] 106 mmol/L 98-108 [facility] Eosinophil percentageOrdered By: Carrillo Strong on 01-04-2025 Eosinophils/100 WBC (Bld) 1.6 % 0-5 [facility] Erythrocyte distribution wid th ratioOrdered By: Carrillo Strong on 01-04-2025 Erythrocyte distribution width (RBC) [Ratio] 15.2 % High 11.6-14.6 [facility] Erythrocyte distribution wid th standard deviationOrdered By: Carrillo Strong on 01-04-2025 Erythrocyte distribution width (RBC) [Ratio] 44.2 fl High 35.1-43.9 [facility] Glomerular filtration rate ( GFR) estimation/1.73 sq m using serum, plasma, or whole bOrdered By: Carrillo Strong on 01-04-2025 GFR/1.73 sq M.predicted among non-blacks MDRD (S/P/Bld) [Vol rate/Area] 65 mL/min/{1.73_m2} >60 [facility] Comment on above: mL/min/1.73m2 CKD-EP I Creatinine Equation (2020) Hematocrit Auto (Bld) [Volum e fraction]Ordered By: Carrillo Strong on 01-04-2025 Hematocrit (Bld) [Volume fraction] 23.8 % Low 37-47 [facility] Hemoglobin measurementOrdere d By: Carrillo Strong on 01-04-2025 Hemoglobin (Bld) [Mass/Vol] 7.5 g/dL Low 12.0-15.0 [facility] Immature granulocytes/100 WB C Auto (Bld)Ordered By: Carrillo Strong on 01-04-2025 Immature granulocytes/100 WBC (Bld) 0.700 % 0.0-0.9 [facility] Comment on above: IG% - Immature Granu locytes (promyelocytes, myelocytes and metamyelocytes) > 1% indicates that a LEFT SHIFT is Present. MCV (mean corpuscular volume ) determinationOrdered By: Carrillo Strong on 01-04-2025 MCV (RBC) [Entitic vol] 81.2 fL 81-99 [facility] Mean corpuscular hemoglobin (MCH) determinationOrdered By: Carrillo Strong on 01-04-2025 MCH (RBC) [Entitic mass] 25.6 pg Low 27.0-32.0 [facility] Mean corpuscular hemoglobin concentration (MCHC) determinationOrdered By: Carrillo Strong on 01-04-2025 MCHC (RBC) [Mass/Vol] 31.5 g/dL Low 32-36 [facility] Mean platelet volume determi nationOrdered By: Carrillo Strong on 01-04-2025 Platelet mean volume (Bld) [Entitic vol] 10.3 fL 6.2-12.0 [facility] Monocyte percentageOrdered B y: Carrillo Strong on 01-04-2025 Monocytes/100 WBC (Bld) 10.3 % High 0-10 [facility] Neutrophil percentageOrdered By: Carrillo Strong on 01-04-2025 Neutrophils/100 WBC (Bld) 63.7 % 47-70 [facility] Nucleated red blood cell per centageOrdered By: Carrillo Strong on 01-04-2025 Nucleated RBC/100 WBC (Bld) [Ratio] 0 % 0-5 [facility] Platelet countOrdered By: Eliu Strong on 01-04-2025 Platelets (Bld) [#/Vol] 335 10*3/uL 150-450 [facility] Potassium measurement (mass/ volume)Ordered By: Carrillo Strong on 01-04-2025 Potassium (Unsp spec) [Mass/Vol] 3.5 mmol/L 3.3-5.1 [facility] Comment on above: Hemolysis present, R esults could be affected. RBC Auto (Bld) [#/Vol]Ordere d By: Carrillo Strong on 01-04-2025 RBC (Bld) [#/Vol] 2.93 10*6/uL Low 4.2-5.4 [facility] Serum creatinine measurement (mass/volume)Ordered By: Carrillo Strong on 01-04-2025 Creatinine [Mass/Vol] 0.90 mg/dL 0.70-1.20 [facility] Serum glucose measurement (m ass/volume)Ordered By: Carrillo Strong on 01-04-2025 Glucose [Mass/Vol] 84 mg/dL 70-99 [facility] Serum or plasma calcium elke urement (mass/volume)Ordered By: Carrillo Strong on 01-04-2025 Calcium [Mass/Vol] 8.9 mg/dL 7.6-11.0 [facility] Serum or plasma urea nitroge n measurement (mass/volume)Ordered By: Carrillo Strong on 01-04-2025 Urea nitrogen [Mass/Vol] 7 mg/dL 4-19 [facility] Sodium levelOrdered By: Jonah Strong on 01-04-2025 Sodium [Moles/Vol] 140 mmol/L 133-145 [facility] White blood cell (WBC) count Ordered By: Carrillo Strong on 01-04-2025 WBC (Bld) [#/Vol] 8.7 10*3/uL 4.4-11.0 [facility] Basic Metabolic Profile (BMP )on 01-03-2025 BUN/CRE 8.2 RATIO Low 10-20 [facility] Comment on above: Performed By: #### L 100.0100, L300.3900, L500.3400, L500.2500 #### [facility] [address] [place], [address] Calcium [Mass/Vol] 8.7 mg/dL Normal 7.6-11.0 [facility] Comment on above: Performed By: #### L 100.0100, L300.3900, L500.3400, L500.2500 #### [facility] [address] [place], [address] Chloride [Moles/Vol] 101 mmol/L Normal 98-108 [facility] Comment on above: Performed By: #### L 100.0100, L300.3900, L500.3400, L500.2500 #### [facility] [address] [place], [address] CO2 [Moles/Vol] 23.0 mmol/L Normal 21.0-32.0 [facility] Comment on above: Performed By: #### L 100.0100, L300.3900, L500.3400, L500.2500 #### [facility] [address] [place], [address] Creatinine [Mass/Vol] 0.91 mg/dL Normal 0.70-1.20 [facility] Comment on above: Performed By: #### L 100.0100, L300.3900, L500.3400, L500.2500 #### [facility] [address] [place], [address] ECRCL 52.35 ml/min Normal 50-250 [facility] Comment on above: Performed By: #### L 100.0100, L300.3900, L500.3400, L500.2500 #### [facility] [address] [place], [address] GAP 13 Normal 5-15 [facility] Comment on above: Performed By: #### L 100.0100, L300.3900, L500.3400, L500.2500 #### [facility] [address] [place], [address] GFR/1.73 sq M.predicted among non-blacks MDRD (S/P/Bld) [Vol rate/Area] 64 mL/min/{1.73_m2} Normal >60 [facility] Comment on above: Result Comment: mL/m in/1.73m2 CKD-EPI Creatinine Equation (2020) Performed By: #### L 100.0100, L300.3900, L500.3400, L500.2500 #### [facility] [address] [place], [address] Glucose [Mass/Vol] 154 mg/dL High 70-99 [facility] Comment on above: Performed By: #### L 100.0100, L300.3900, L500.3400, L500.2500 #### [facility] [address] [place], [address] Potassium [Moles/Vol] 3.3 mmol/L Normal 3.3-5.1 [facility] Comment on above: Performed By: #### L 100.0100, L300.3900, L500.3400, L500.2500 #### [facility] [address] [place], [address] Sodium [Moles/Vol] 137 mmol/L Normal 133-145 [facility] Comment on above: Performed By: #### L 100.0100, L300.3900, L500.3400, L500.2500 #### [facility] [address] [place], [address] Urea nitrogen [Mass/Vol] 7 mg/dL Normal 4-19 [facility] Comment on above: Performed By: #### L 100.0100, L300.3900, L500.3400, L500.2500 #### [facility] [address] [place], [address] CBC W/Diff, Automatedon 06-0 5 Absolute Lymph 1.41 X10 3/uL Normal 0.83-4.51 [facility] Comment on above: Performed By: #### L 300.4310, L300.3900 #### [facility] [address] [place], [address] Absolute Neut 7.8 X10 3/uL High 2.0-7.7 [facility] Comment on above: Performed By: #### L 300.4310, L300.3900 #### [facility] [address] [place], [address] Basophils/100 WBC (Bld) 0.1 % Normal 0-1 [facility] Comment on above: Performed By: #### L 300.4310, L300.3900 #### [facility] [address] [place], [address] Eosinophils/100 WBC (Bld) 0.2 % Normal 0-5 [facility] Comment on above: Performed By: #### L 300.4310, L300.3900 #### [facility] [address] [place], [address] Erythrocyte distribution width (RBC) [Ratio] 14.9 % High 11.6-14.6 [facility] Comment on above: Performed By: #### L 300.4310, L300.3900 #### [facility] [address] [place], [address] Hematocrit (Bld) [Volume fraction] 24.5 % Low 37-47 [facility] Comment on above: Performed By: #### L 300.4310, L300.3900 #### [facility] [address] [place], [address] Hemoglobin (Bld) [Mass/Vol] 7.6 g/dL Low 12.0-15.0 [facility] Comment on above: Performed By: #### L 300.4310, L300.3900 #### [facility] [address] [place], [address] IG% 0.800 Normal 0.0-0.9 [facility] Comment on above: Result Comment: IG% - Immature Granulocytes (promyelocytes, myelocytes and metamyelocytes) > 1% indicates that a LEFT SHIFT is Present. Performed By: #### L 300.4310, L300.3900 #### [facility] [address] [place], [address] Lymphocytes/100 WBC (Bld) 13.8 % Low 19-41 [facility] Comment on above: Performed By: #### L 300.4310, L300.3900 #### [facility] [address] [place], [address] MCH (RBC) [Entitic mass] 25.2 pg Low 27.0-32.0 [facility] Comment on above: Performed By: #### L 300.4310, L300.3900 #### [facility] [address] [place], [address] MCHC (RBC) [Mass/Vol] 31.0 g/dL Low 32-36 [facility] Comment on above: Performed By: #### L 300.4310, L300.3900 #### [facility] [address] [place], [address] MCV (RBC) [Entitic vol] 81.4 fL Normal 81-99 [facility] Comment on above: Performed By: #### L 300.4310, L300.3900 #### [facility] [address] [place], [address] Monocytes/100 WBC (Bld) 9.0 % Normal 0-10 [facility] Comment on above: Performed By: #### L 300.4310, L300.3900 #### [facility] [address] [place], [address] Neutrophils/100 WBC (Bld) 76.1 % High 47-70 [facility] Comment on above: Performed By: #### L 300.4310, L300.3900 #### [facility] [address] [place], [address] Nucleated RBC (Bld) [#/Vol] 0 10*3/uL Normal 0-5 [facility] Comment on above: Performed By: #### L 300.4310, L300.3900 #### [facility] [address] [place], [address] Platelet mean volume (Bld) [Entitic vol] 9.8 fL Normal 6.2-12.0 [facility] Comment on above: Performed By: #### L 300.4310, L300.3900 #### [facility] [address] [place], [address] Platelets (Bld) [#/Vol] 340 10*3/uL Normal 150-450 [facility] Comment on above: Performed By: #### L 300.4310, L300.3900 #### [facility] [address] [place], [address] RBC (Bld) [#/Vol] 3.01 10*6/uL Low 4.2-5.4 [facility] Comment on above: Performed By: #### L 300.4310, L300.3900 #### [facility] [address] [place], [address] RDW SD 43.5 fl Normal 35.1-43.9 [facility] Comment on above: Performed By: #### L 300.4310, L300.3900 #### [facility] [address] [place], [address] WBC (Bld) [#/Vol] 10.2 10*3/uL Normal 4.4-11.0 [facility] [place] Comment on above: Performed By: #### L 300.4310, L300.3900 #### [facility] [address] [place], [address] Colonoscopy Reporton 025 Colonoscopy Report [facility] Medical Records Department [address] [place] [address] Colonoscopy Report MR#: [id number] Acct: [id number] Name: MARIETTA TEMPLE Rep #: [id number] : 1945 79 From: Austin Jaimes DO PCP: Dr. Marika Park MD Status:ADM IN Patient Name: Marietta Temple Procedure Date: 01/02/2025 1:28 PM Date of : 1945 Age: 79 Procedure: Colonoscopy Indications: Hematochezia Providers: Austin Jaimes DO Medicines: Monitored Anesthesia Care Patient Profile: This is an 79 year old female. Refer to note in patient chart for documentation of history and physical. Last Colonoscopy: within the past 3 years. Complications: No immediate complications. Procedure: Pre-Anesthesia Assessment: - Prior to the procedure, a History and Physical was performed, and patient medications and allergies were reviewed. The patient is competent. The risks and benefits of the procedure and the sedation options and risks were discussed with the patient. All questions were answered and informed consent was obtained. Patient identification and proposed procedure were verified by the physician. Mental Status Examination: normal. Prophylactic Antibiotics: The patient does not require prophylactic antibiotics. Prior Anticoagulants: The patient has taken no anticoagulant or antiplatelet agents except for NSAID medication. ASA Grade Assessment: II - A patient with mild systemic disease. After reviewing the risks and benefits, the patient was deemed in satisfactory condition to undergo the procedure. The anesthesia plan was to use monitored anesthesia care (MAC). Immediately prior to administration of medications, the patient was re-assessed for adequacy to receive sedatives. The heart rate, respiratory rate, oxygen saturations, blood pressure, adequacy of pulmonary ventilation, and response to care were monitored throughout the procedure. The physical status of the patient was re-assessed after the procedure. After I obtained informed consent, the scope was passed under direct vision. Throughout the procedure, the patient's blood pressure, pulse, and oxygen saturations were monitored continuously. The Colonoscope was introduced through the anus and advanced to the cecum, identified by appendiceal orifice and ileocecal valve. The colonoscopy was performed without difficulty. The patient tolerated the procedure well. The quality of the bowel preparation was adequate. The terminal ileum, ileocecal valve, appendiceal orifice, and rectum were photographed. Scope In: 1:43:30 PM Scope Withdrawal Time 0 hours 20 minutes 22 seconds Scope Out: 2:08:52 PM Total Procedure Duration Time 0 hours 25 minutes 22 seconds Findings: The perianal and digital rectal examinations were normal. Multiple small and large-mouthed diverticula were found in the recto-sigmoid colon, sigmoid colon, descending colon, splenic flexure and ascending colon. Red blood was found in the cecum. 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 Coagulation for hemostasis using heater probe was successful. For location marking, one hemostatic clip was successfully placed. 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 There was no bleeding at the end of the procedure. Impression: - Diverticulosis in the recto-sigmoid colon, in the sigmoid colon, in the descending colon, at the splenic flexure and in the ascending colon. - No specimens collected. Recommendation: - Discharge patient to home. - Resume previous diet. - Continue present medications. - No repeat colonoscopy. Procedure Code(s): --- Professional --- 71728, Colonoscopy, flexible; with control of bleeding, any method 67363, Unlisted procedure, colon CPT copyright 2021 [employer]. All rights reserved. The codes documented in this report are preliminary and upon power station operator review may be revised to meet current compliance requirements. Austin Jaimes DO 01/03/2025 5:33:59 PM This report has been signed electronically. Number of Addenda: 0 Note Initiated On: 01/02/2025 1:28 PM 01/03/25 1734 Date Austin Zarco Signature: Date (if indicated) CC: Dr. Marika Park MD; Austin Friend, DO Date Dictated: 01/02/25 1328 Date Transcribed: Verifier Operator: RF Signed Normal [facility] Basic Metabolic Profile (BMP )on 01-02-2025 BUN/CRE 11.8 RATIO Normal 10-20 [facility] Comment on above: Performed By: #### L 100.0100, L300.3900, L500.3400, L500.2500 #### [facility] [address] [place], [address] Calcium [Mass/Vol] 8.6 mg/dL Normal 7.6-11.0 [facility] Comment on above: Performed By: #### L 100.0100, L300.3900, L500.3400, L500.2500 #### [facility] [address] [place], [address] Chloride [Moles/Vol] 102 mmol/L Normal 98-108 [facility] Comment on above: Performed By: #### L 100.0100, L300.3900, L500.3400, L500.2500 #### [facility] [address] [place], [address] CO2 [Moles/Vol] 25.0 mmol/L Normal 21.0-32.0 [facility] Comment on above: Performed By: #### L 100.0100, L300.3900, L500.3400, L500.2500 #### [facility] [address] [place], [address] Creatinine [Mass/Vol] 0.91 mg/dL Normal 0.70-1.20 [facility] Comment on above: Performed By: #### L 100.0100, L300.3900, L500.3400, L500.2500 #### [facility] [address] [place], [address] ECRCL 53.44 ml/min Normal 50-250 [facility] Comment on above: Performed By: #### L 100.0100, L300.3900, L500.3400, L500.2500 #### [facility] [address] [place], [address] GAP 12 Normal 5-15 [facility] Comment on above: Performed By: #### L 100.0100, L300.3900, L500.3400, L500.2500 #### [facility] [address] [place], [address] GFR/1.73 sq M.predicted among non-blacks MDRD (S/P/Bld) [Vol rate/Area] 64 mL/min/{1.73_m2} Normal >60 [facility] Comment on above: Result Comment: mL/m in/1.73m2 CKD-EPI Creatinine Equation (2020) Performed By: #### L 100.0100, L300.3900, L500.3400, L500.2500 #### [facility] [address] [place], [address] Glucose [Mass/Vol] 104 mg/dL High 70-99 [facility] Comment on above: Performed By: #### L 100.0100, L300.3900, L500.3400, L500.2500 #### [facility] [address] [place], [address] Potassium [Moles/Vol] 3.3 mmol/L Normal 3.3-5.1 [facility] Comment on above: Performed By: #### L 100.0100, L300.3900, L500.3400, L500.2500 #### [facility] [address] [place], [address] Sodium [Moles/Vol] 139 mmol/L Normal 133-145 [facility] Comment on above: Performed By: #### L 100.0100, L300.3900, L500.3400, L500.2500 #### [facility] [address] [place], [address] Urea nitrogen [Mass/Vol] 11 mg/dL Normal 4-19 [facility] Comment on above: Performed By: #### L 100.0100, L300.3900, L500.3400, L500.2500 #### [facility] [address] [place], [address] Bilirubin directOrdered By: Austin Jaimes on 01-02-2025 Bilirubin.direct [Mass/Vol] 0.15 mg/dL 0.00-0.30 [facility] Bilirubin, totalOrdered By: Austin Jaimes on 01-02-2025 Bilirubin [Mass/Vol] 0.39 mg/dL 0.00-1.30 [facility] CBC W/Diff, Automatedon 06-0 Absolute Lymph 1.68 X10 3/uL Normal 0.83-4.51 [facility] Comment on above: Performed By: #### L 100.0100, L300.3900, L500.3400, L500.2500 #### [facility] [address] [place], [address] Absolute Neut 6.2 X10 3/uL Normal 2.0-7.7 [facility] Comment on above: Performed By: #### L 100.0100, L300.3900, L500.3400, L500.2500 #### [facility] [address] [place], [address] Basophils/100 WBC (Bld) 0.2 % Normal 0-1 [facility] Comment on above: Performed By: #### L 100.0100, L300.3900, L500.3400, L500.2500 #### [facility] [address] [place], [address] Eosinophils/100 WBC (Bld) 2.0 % Normal 0-5 [facility] Comment on above: Performed By: #### L 100.0100, L300.3900, L500.3400, L500.2500 #### [facility] [address] [place], [address] Erythrocyte distribution width (RBC) [Ratio] 14.8 % High 11.6-14.6 [facility] Comment on above: Performed By: #### L 100.0100, L300.3900, L500.3400, L500.2500 #### [facility] [address] [place], [address] Hematocrit (Bld) [Volume fraction] 25.2 % Low 37-47 [facility] Comment on above: Performed By: #### L 100.0100, L300.3900, L500.3400, L500.2500 #### [facility] [address] [place], [address] Hemoglobin (Bld) [Mass/Vol] 8.1 g/dL Low 12.0-15.0 [facility] Comment on above: Performed By: #### L 100.0100, L300.3900, L500.3400, L500.2500 #### [facility] [address] [place], [address] IG% 0.300 Normal 0.0-0.9 [facility] Comment on above: Result Comment: IG% - Immature Granulocytes (promyelocytes, myelocytes and metamyelocytes) > 1% indicates that a LEFT SHIFT is Present. Performed By: #### L 100.0100, L300.3900, L500.3400, L500.2500 #### [facility] [address] [place], [address] Lymphocytes/100 WBC (Bld) 18.9 % Low 19-41 [facility] Comment on above: Performed By: #### L 100.0100, L300.3900, L500.3400, L500.2500 #### [facility] [address] [place], [address] MCH (RBC) [Entitic mass] 25.6 pg Low 27.0-32.0 [facility] Comment on above: Performed By: #### L 100.0100, L300.3900, L500.3400, L500.2500 #### [facility] [address] [place], [address] MCHC (RBC) [Mass/Vol] 32.1 g/dL Normal 32-36 [facility] Comment on above: Performed By: #### L 100.0100, L300.3900, L500.3400, L500.2500 #### [facility] [address] [place], [address] MCV (RBC) [Entitic vol] 79.7 fL Low 81-99 [facility] Comment on above: Performed By: #### L 100.0100, L300.3900, L500.3400, L500.2500 #### [facility] [address] [place], [address] Monocytes/100 WBC (Bld) 9.2 % Normal 0-10 [facility] Comment on above: Performed By: #### L 100.0100, L300.3900, L500.3400, L500.2500 #### [facility] [address] [place], [address] Neutrophils/100 WBC (Bld) 69.4 % Normal 47-70 [facility] Comment on above: Performed By: #### L 100.0100, L300.3900, L500.3400, L500.2500 #### [facility] [address] [place], [address] Nucleated RBC (Bld) [#/Vol] 0 10*3/uL Normal 0-5 [facility] Comment on above: Performed By: #### L 100.0100, L300.3900, L500.3400, L500.2500 #### [facility] [address] [place], [address] Platelet mean volume (Bld) [Entitic vol] 9.5 fL Normal 6.2-12.0 [facility] Comment on above: Performed By: #### L 100.0100, L300.3900, L500.3400, L500.2500 #### [facility] [address] [place], [address] Platelets (Bld) [#/Vol] 321 10*3/uL Normal 150-450 [facility] Comment on above: Performed By: #### L 100.0100, L300.3900, L500.3400, L500.2500 #### [facility] [address] [place], [address] RBC (Bld) [#/Vol] 3.16 10*6/uL Low 4.2-5.4 [facility] Comment on above: Performed By: #### L 100.0100, L300.3900, L500.3400, L500.2500 #### [facility] [address] [place], [address] RDW SD 43.6 fl Normal 35.1-43.9 [facility] Comment on above: Performed By: #### L 100.0100, L300.3900, L500.3400, L500.2500 #### [facility] [address] [place], [address] WBC (Bld) [#/Vol] 8.9 10*3/uL Normal 4.4-11.0 [facility] Comment on above: Performed By: #### L 100.0100, L300.3900, L500.3400, L500.2500 #### [facility] [address] [place], [address] International normalized rat io (INR) calculationOrdered By: Austin Jaimes on 01-02-2025 INR Coag (Bld) [Relative time] 1.1 {INR} [facility] - Chemistry and C hemistry - challengeOrdered By: Austin Jaimes on 01-02-2025 AST [Catalytic activity/Vol] 22 U/L <32 [facility] Liver Profileon 01-02-2025 Albumin [Mass/Vol] 3.6 g/dL Normal 3.4-4.8 [facility] Comment on above: Performed By: #### L 100.0100, L300.3900, L500.3400, L500.2500 #### [facility] [address] [place], [address] ALK PHOS 81 U/L Normal 35-104 [facility] Comment on above: Performed By: #### L 100.0100, L300.3900, L500.3400, L500.2500 #### [facility] [address] [place], [address] ALT [Catalytic activity/Vol] 20 U/L Normal <=34 [facility] Comment on above: Performed By: #### L 100.0100, L300.3900, L500.3400, L500.2500 #### [facility] [address] [place], [address] AST [Catalytic activity/Vol] 22 U/L Normal <=31 [facility] Comment on above: Performed By: #### L 100.0100, L300.3900, L500.3400, L500.2500 #### [facility] [address] [place], [address] Bilirubin [Mass/Vol] 0.39 mg/dL Normal 0.00-1.30 [facility] Comment on above: Performed By: #### L 100.0100, L300.3900, L500.3400, L500.2500 #### [facility] [address] [place], [address] Bilirubin.direct [Mass/Vol] 0.15 mg/dL Normal 0.00-0.30 [facility] Comment on above: Performed By: #### L 100.0100, L300.3900, L500.3400, L500.2500 #### [facility] [address] [place], [address] Globulin (S) [Mass/Vol] 2.7 g/dL Normal 2.2-4.2 [facility] Comment on above: Performed By: #### L 100.0100, L300.3900, L500.3400, L500.2500 #### [facility] [address] [place], [address] T PROT 6.3 g/dL Normal 5.9-8.4 [facility] Comment on above: Performed By: #### L 100.0100, L300.3900, L500.3400, L500.2500 #### [facility] [address] [place], [address] MR/POSTOP.ANEon 01-02-2025 MR/POSTOP.[facility] Medical Records Department [address] [place] [address] Anesthesia Postop Eval I 01/02/25 1419 MR#: [id number] Acct: [id number] Name: MARIETTA TEMPLE Rep #: [id number] : 1945 79 From: Van Zamarripa PCP: Dr. Marika Park MD Status:ADM IN Y Race: C Location: [place] [address] Anesthesia: Postop Eval I Current Vital Signs Temperature: 98.7 F Pulse Rate: 72 Blood Pressure: 119/54 Respiratory Rate: 16 Pulse Ox: 100 Oxygen Delivery Method: Room Air Assessment Airway patent: Yes Spontaneous unlabored respirations: Yes Mental status: Awake and Calm nausea: No Vomiting: No Anesthesia Complication: No Fluid Hydration Crystalloid volume administer (ml): 800 Total IV fluid infused: 800 Progress Note Anesthesia document: Postop Eval 1 completed: Yes 01/02/25 1420 Date Van Lwagaurang Signature: Date CC: Signed Normal [facility] Prothrombin Time w/INRon INR Coag (PPP) [Relative time] 1.1 {INR} Normal [facility] Comment on above: Performed By: #### L 100.0100, L300.3900, L500.3400, L500.2500 #### [facility] [address] [place], [address] PT Coag (PPP) [Time] 14.0 s Normal 11.7-14.9 [facility] Comment on above: Performed By: #### L 100.0100, L300.3900, L500.3400, L500.2500 #### [facility] [address] [place], [address] Prothrombin timeOrdered By: Austin Jaimes on 01-02-2025 PT Coag (PPP) [Time] 14.0 s 11.7-14.9 [facility] Serum globulin measurementOr dered By: Austin Jaimes on 01-02-2025 Globulin (S) [Mass/Vol] 2.7 g/dL 2.2-4.2 [facility] Serum or plasma alanine bragg otransferase (ALT) measurementOrdered By: Austin Jaimes on 01-02-2025 ALT [Catalytic activity/Vol] 20 U/L <35 [facility] Serum or plasma albumin elke urement (mass/volume)Ordered By: Austin Jaimes on 01-02-2025 Albumin [Mass/Vol] 3.6 g/dL 3.4-4.8 [facility] Serum or plasma alkaline lanny sphatase measurementOrdered By: Austin Jaimes on 01-02-2025 ALP [Catalytic activity/Vol] 81 U/L 35-104 [facility] Total proteinOrdered By: Yifan Jaimes on 01-02-2025 Protein [Mass/Vol] 6.3 g/dL 5.9-8.4 [facility] Activated partial thrombopla stin time (aPTT) in platelet poor plasma by coagulation aOrdered By: Alejandro Malloy on 01-01-2025 aPTT Coag (PPP) [Time] 31.9 s 24.1-36.2 [facility] Bilirubin, Directon 01-02-20 25 Bilirubin.direct [Mass/Vol] 0.24 mg/dL Normal 0.00-0.30 [facility] Comment on above: Performed By: #### L 300.4310, L300.3900 #### [facility] [address] [place], [address] CBC W/Diff, Automatedon Absolute Lymph 1.81 X10 3/uL Normal 0.83-4.51 [facility] Comment on above: Performed By: #### L 300.4310, L300.3900 #### [facility] [address] [place], [address] Absolute Neut 4.4 X10 3/uL Normal 2.0-7.7 [facility] Comment on above: Performed By: #### L 300.4310, L300.3900 #### [facility] [address] [place], [address] Basophils/100 WBC (Bld) 0.3 % Normal 0-1 [facility] Comment on above: Performed By: #### L 300.4310, L300.3900 #### [facility] [address] [place], [address] Eosinophils/100 WBC (Bld) 2.0 % Normal 0-5 [facility] Comment on above: Performed By: #### L 300.4310, L300.3900 #### [facility] [address] [place], [address] Erythrocyte distribution width (RBC) [Ratio] 14.7 % High 11.6-14.6 [facility] Comment on above: Performed By: #### L 300.4310, L300.3900 #### [facility] [address] [place], [address] Hematocrit (Bld) [Volume fraction] 24.3 % Low 37-47 [facility] Comment on above: Performed By: #### L 300.4310, L300.3900 #### [facility] [address] [place], [address] Hemoglobin (Bld) [Mass/Vol] 7.8 g/dL Low 12.0-15.0 [facility] Comment on above: Performed By: #### L 300.4310, L300.3900 #### [facility] [address] [place], [address] IG% 0.500 Normal 0.0-0.9 [facility] Comment on above: Result Comment: IG% - Immature Granulocytes (promyelocytes, myelocytes and metamyelocytes) > 1% indicates that a LEFT SHIFT is Present. Performed By: #### L 300.4310, L300.3900 #### [facility] [address] [place], [address] Lymphocytes/100 WBC (Bld) 24.7 % Normal 19-41 [facility] Comment on above: Performed By: #### L 300.4310, L300.3900 #### [facility] [address] [place], [address] MCH (RBC) [Entitic mass] 25.7 pg Low 27.0-32.0 [facility] Comment on above: Performed By: #### L 300.4310, L300.3900 #### [facility] [address] [place], [address] MCHC (RBC) [Mass/Vol] 32.1 g/dL Normal 32-36 [facility] Comment on above: Performed By: #### L 300.4310, L300.3900 #### [facility] [address] [place], [address] MCV (RBC) [Entitic vol] 79.9 fL Low 81-99 [facility] Comment on above: Performed By: #### L 300.4310, L300.3900 #### [facility] [address] [place], [address] Monocytes/100 WBC (Bld) 12.4 % High 0-10 [facility] Comment on above: Performed By: #### L 300.4310, L300.3900 #### [facility] [address] [place], [address] Neutrophils/100 WBC (Bld) 60.1 % Normal 47-70 [facility] Comment on above: Performed By: #### L 300.4310, L300.3900 #### [facility] [address] [place], [address] Nucleated RBC (Bld) [#/Vol] 0 10*3/uL Normal 0-5 [facility] Comment on above: Performed By: #### L 300.4310, L300.3900 #### [facility] [address] [place], [address] Platelet mean volume (Bld) [Entitic vol] 10.0 fL Normal 6.2-12.0 [facility] Comment on above: Performed By: #### L 300.4310, L300.3900 #### [facility] [address] [place], [address] Platelets (Bld) [#/Vol] 304 10*3/uL Normal 150-450 [facility] Comment on above: Performed By: #### L 300.4310, L300.3900 #### [facility] [address] [place], [address] RBC (Bld) [#/Vol] 3.04 10*6/uL Low 4.2-5.4 [facility] Comment on above: Performed By: #### L 300.4310, L300.3900 #### [facility] [address] [place], [address] RDW SD 42.9 fl Normal 35.1-43.9 [facility] Comment on above: Performed By: #### L 300.4310, L300.3900 #### [facility] [address] [place], [address] WBC (Bld) [#/Vol] 7.3 10*3/uL Normal 4.4-11.0 [facility] Comment on above: Performed By: #### L 300.4310, L300.3900 #### [facility] [address] [place], [address] Comprehensive Metabolic Prof [facility] 01-01-2025 Albumin [Mass/Vol] 3.5 g/dL Normal 3.4-4.8 [facility] Comment on above: Performed By: #### L 501.5200, L501.2300, L100.0100, L500.4050, L501.4700 #### [facility] [address] [place], [address] Albumin/Globulin [Mass ratio] 1.5 {ratio} Normal 0.9-2.4 [facility] Comment on above: Performed By: #### L 501.5200, L501.2300, L100.0100, L500.4050, L501.4700 #### [facility] [address] [place], [address] ALK PHOS 81 U/L Normal 35-104 [facility] Comment on above: Performed By: #### L 501.5200, L501.2300, L100.0100, L500.4050, L501.4700 #### [facility] [address] [place], [address] ALT [Catalytic activity/Vol] 19 U/L Normal <=34 [facility] Comment on above: Performed By: #### L 501.5200, L501.2300, L100.0100, L500.4050, L501.4700 #### [facility] [address] [place], [address] AST [Catalytic activity/Vol] 21 U/L Normal <=31 [facility] Comment on above: Performed By: #### L 501.5200, L501.2300, L100.0100, L500.4050, L501.4700 #### [facility] [address] [place], [address] Bilirubin [Mass/Vol] 0.58 mg/dL Normal 0.00-1.30 [facility] Comment on above: Performed By: #### L 501.5200, L501.2300, L100.0100, L500.4050, L501.4700 #### [facility] [address] [place], [address] BUN/CRE 15.7 RATIO Normal 10-20 [facility] Comment on above: Performed By: #### L 501.5200, L501.2300, L100.0100, L500.4050, L501.4700 #### [facility] [address] [place], [address] Calcium [Mass/Vol] 8.9 mg/dL Normal 7.6-11.0 [facility] Comment on above: Performed By: #### L 501.5200, L501.2300, L100.0100, L500.4050, L501.4700 #### [facility] [address] [place], [address] Chloride [Moles/Vol] 104 mmol/L Normal 98-108 [facility] Comment on above: Performed By: #### L 501.5200, L501.2300, L100.0100, L500.4050, L501.4700 #### [facility] [address] [place], [address] CO2 [Moles/Vol] 26.3 mmol/L Normal 21.0-32.0 [facility] Comment on above: Performed By: #### L 501.5200, L501.2300, L100.0100, L500.4050, L501.4700 #### [facility] [address] [place], [address] Creatinine [Mass/Vol] 0.84 mg/dL Normal 0.70-1.20 [facility] Comment on above: Performed By: #### L 501.5200, L501.2300, L100.0100, L500.4050, L501.4700 #### [facility] [address] [place], [address] ECRCL 57.90 ml/min Normal 50-250 [facility] Comment on above: Performed By: #### L 501.5200, L501.2300, L100.0100, L500.4050, L501.4700 #### [facility] [address] [place], [address] GAP 9 Normal 5-15 [facility] Comment on above: Performed By: #### L 501.5200, L501.2300, L100.0100, L500.4050, L501.4700 #### [facility] [address] [place], [address] GFR/1.73 sq M.predicted among non-blacks MDRD (S/P/Bld) [Vol rate/Area] 70 mL/min/{1.73_m2} Normal >60 [facility] Comment on above: Result Comment: mL/m in/1.73m2 CKD-EPI Creatinine Equation (2020) Performed By: #### L 501.5200, L501.2300, L100.0100, L500.4050, L501.4700 #### [facility] [address] [place], [address] Globulin (S) [Mass/Vol] 2.4 g/dL Normal 2.2-4.2 [facility] Comment on above: Performed By: #### L 501.5200, L501.2300, L100.0100, L500.4050, L501.4700 #### [facility] [address] [place], [address] Glucose [Mass/Vol] 97 mg/dL Normal 70-99 [facility] Comment on above: Performed By: #### L 501.5200, L501.2300, L100.0100, L500.4050, L501.4700 #### [facility] [address] [place], [address] Potassium [Moles/Vol] 3.5 mmol/L Normal 3.3-5.1 [facility] Comment on above: Performed By: #### L 501.5200, L501.2300, L100.0100, L500.4050, L501.4700 #### [facility] [address] [place], [address] Sodium [Moles/Vol] 140 mmol/L Normal 133-145 [facility] Comment on above: Performed By: #### L 501.5200, L501.2300, L100.0100, L500.4050, L501.4700 #### [facility] [address] [place], [address] T PROT 5.9 g/dL Normal 5.9-8.4 [facility] Comment on above: Performed By: #### L 501.5200, L501.2300, L100.0100, L500.4050, L501.4700 #### [facility] [address] [place], [address] Urea nitrogen [Mass/Vol] 13 mg/dL Normal 4-19 [facility] Comment on above: Performed By: #### L 501.5200, L501.2300, L100.0100, L500.4050, L501.4700 #### [facility] [address] [place], [address] EGD Reporton 01-01-2025 EGD Report [facility] Medical Records Department [address] [facility] [place] [address] EGD Report MR#: [id number] Acct: [id number] Name: MARIETTA TEPMLE Rep #: [id number] : 1945 79 From: Austin Jaimes DO PCP: Dr. Marika Park MD Status:ADM IN Patient Name: Marietta Temple Procedure Date: 01/01/2025 4:14 PM Date of : 1945 Age: 79 Procedure: Upper GI endoscopy Indications: Iron deficiency anemia, Melena, Occult blood in stool, Recent gastrointestinal bleeding Providers: Austin Jaimes DO Medicines: Monitored Anesthesia Care Patient Profile: This is an 79 year old female. Refer to note in patient chart for documentation of history and physical. Patient has symptoms. Complications: No immediate complications. Procedure: Pre-Anesthesia Assessment: - Prior to the procedure, a History and Physical was performed, and patient medications and allergies were reviewed. The patient is competent. The risks and benefits of the procedure and the sedation options and risks were discussed with the patient. All questions were answered and informed consent was obtained. Patient identification and proposed procedure were verified by the physician. Mental Status Examination: alert and oriented. Airway Examination: normal oropharyngeal airway and neck mobility. Respiratory Examination: clear to auscultation. CV Examination: normal. ASA Grade Assessment: II - A patient with mild systemic disease. After reviewing the risks and benefits, the patient was deemed in satisfactory condition to undergo the procedure. The anesthesia plan was to use monitored anesthesia care (MAC). Immediately prior to administration of medications, the patient was re-assessed for adequacy to receive sedatives. The heart rate, respiratory rate, oxygen saturations, blood pressure, adequacy of pulmonary ventilation, and response to care were monitored throughout the procedure. The physical status of the patient was re-assessed after the procedure. After obtaining informed consent, the endoscope was passed under direct vision. Throughout the procedure, the patient's blood pressure, pulse, and oxygen saturations were monitored continuously. The Endoscope was introduced through the mouth, and advanced to the fourth part of the duodenum. Small bowel enteroscopy was deemed necessary. The upper GI endoscopy was accomplished without difficulty. The patient tolerated the procedure well. Scope In: 4:27:40 PM Scope Out: 4:30:48 PM Total Procedure Duration Time 0 hours 3 minutes 8 seconds Findings: There were esophageal mucosal changes suspicious for short-segment Lozada's esophagus present in the lower third of the esophagus. The maximum longitudinal extent of these mucosal changes was 3 cm in length. Mucosa was biopsied with a cold forceps for histology in a targeted manner at intervals of 1 cm in the lower third of the esophagus. One specimen bottle was sent to pathology. Verification of patient identification for the specimen was done. Estimated blood loss was minimal. A small hiatal hernia was present. No other significant abnormalities were identified in a careful examination of the stomach. There was a medium-sized lipoma in the gastric body. Patchy mild mucosal changes characterized by erosion and granularity were found in the first portion of the duodenum. Biopsies were taken with a cold forceps for histology. Verification of patient identification for the specimen was done. Estimated blood loss was minimal. Impression: - Esophageal mucosal changes suspicious for short-segment Lozada's esophagus. Biopsied. - Small hiatal hernia. - Gastric lipoma. - Mucosal changes in the duodenum. Biopsied. Recommendation: - [facility]. - Clear liquid diet. - Continue present medications. - Await pathology results. - Prep for colonoscopy Procedure Code(s): --- Professional --- 48911, Small intestinal endoscopy, enteroscopy beyond second portion of duodenum, not including ileum; with biopsy, single or multiple CPT copyright 2021 [employer]. All rights reserved. The codes documented in this report are preliminary and upon power station operator review may be revised to meet current compliance requirements. Austin Jaimes DO 01/01/2025 4:37:16 PM This report has been signed electronically. Number of Addenda: 0 Note Initiated On: 01/01/2025 4:14 PM 01/01/25 1637 Date Austin Jaimes DO Cosigner Signature: Date (if indicated) CC: Dr. Marika Park MD; Austin Jaimes DO Date Dictated: 01/01/25 1614 Date Transcribed: Verifier Operator: RF Signed Normal [facility] Electrocardiogram reportOrde red By: Abdias Yan on 01-01-2025 EKG study [facility] Services [address] [place] [address] 12 Lead EKG 12/31/24 1104 MR#: [id number] Acct: [id number] Name: MARIETTA TEMPLE Rep #:[id number] : 1945 79 From: Abdias galdamez MD Attending Dr: Dr. Carrillo Strong MD Status: ADM IN Ordering Dr: Trenton Lenz MD Date: 09/25 Location: [facility] Sex: F C Admitted: 12/31/24 Test Reason : GENERAL Blood Pressure : */* mmHG Vent. Rate : 75 BPM Atrial Rate : 75 BPM P-R Int : 180 ms QRS Dur : 98 ms QT Int : 418 ms P-R-T Axes : 75 -25 39 degrees QTcB Int : 466 ms Normal sinus rhythm Normal ECG Confirmed by Abdias Yan ([id number]), editor managing director LE MCGREGOR ([id number]) on 01/01/2025 9:53:56 AM Referred By: Confirmed By: Abdias Yan 01/01/25 0953 Date _ Abdias Yan MD CC: Dr. Carrillo Strong MD; Dr. Trenton Lenz MD; Dr. Marika Park MD ~ Signed [facility] Other HH, Hemoglobin AND Hematocri ton 01-01-2025 Hematocrit (Bld) [Volume fraction] 26.0 % Low [address] [place] [address] Comment on above: Performed By: #### L 100.0100, L300.3900, L500.3400, L500.2500 #### [facility] [address] [place], [address] Hemoglobin (Bld) [Mass/Vol] 8.3 g/dL Low 12.0-15.0 [facility] Comment on above: Performed By: #### L 100.0100, L300.3900, L500.3400, L500.2500 #### [facility] [address] [place], [address] HCT Normal [address] [place] [address] Comment on above: Result Comment: OVER LAPPING- CBCD ORDERED SEE H70 Performed By: #### L 100.0600 #### [facility] [address] [place], [address] HGB Normal 12.0-15.0 [facility] Comment on above: Result Comment: OVER LAPPING- CBCD ORDERED SEE H70 Performed By: #### L 100.0600 #### [facility] [address] [place], [address] Hematocrit (Bld) [Volume fraction] 24.5 % Low [address] [place] [address] Comment on above: Order Comment: IN TR ANSFUSION OF 2129, WILL COLLECT IN 2 HOURS. Performed By: #### L 500.2500, L100.0100 #### [facility] [address] [place], [address] Hemoglobin (Bld) [Mass/Vol] 7.8 g/dL Low 12.0-15.0 [facility] Comment on above: Order Comment: IN TR ANSFUSION OF 2129, WILL COLLECT IN 2 HOURS. Performed By: #### L 500.2500, L100.0100 #### [facility] [address] [place], [address] MR/POSTOP.ANE 01-01-2025 MR/POSTOP[facility] Medical Records Department [address] [place] [address] Anesthesia Postop Eval I 01/01/25 1622 MR#: [id number] Acct: [id number] Name: MAVERICKMARIETTA C Rep #: [id number] : 1945 79 From: Andres Omer CRNA PCP: Dr. Marika Park MD Status:ADM IN Y Race: C Location: [place] [address] Anesthesia: Postop Eval I Current Vital Signs Temperature: 97 F Pulse Rate: 65 Blood Pressure: 123/76 Respiratory Rate: 16 Pulse Ox: 100 Oxygen Delivery Method: Room Air Assessment Airway patent: Yes Spontaneous unlabored respirations: Yes Mental status: Awake nausea: No Vomiting: No Anesthesia Complication: No Fluid Hydration Crystalloid volume administer (ml): 200 Total IV fluid infused: 200 Progress Note Anesthesia document: Postop Eval 1 completed: Yes 01/01/25 1632 Date Andres Omer CRNA Cosigner Signature: Date CC: Signed Normal [facility] MR/[id number] 01-01-2025 MR/POSTOPAN2 [facility] Medical Records Department [address] [place] [address] Anesthesia Postop Eval II 01/01/251648 MR#: [id number] Acct: [id number] Name: MARIETTA TEMPLE Rep #: [id number] : 1945 79 From: Andres Omer CRNA PCP: Dr. Marika Park MD Status:ADM IN Y Race: C Location: [place] [address] Anesthesia Postop Eval I Sum Postop Eval Completion status Anesthesia document: Postop Eval 1 completed: Yes Anesthesia Postop Eval I Summary Anesthesia Postop Eval I Summary: Anesthesia Postop Eval I: Assessment Summary Airway patent Yes 01/01/25 16:32 PIPE FINISHING SUPERVISOR.MDOT Spontaneous unlabored Yes 01/01/25 16:32 PIPE FINISHING SUPERVISOR.MDOT respirations Mental status Awake 01/01/25 16:32 PIPE FINISHING SUPERVISOR.MDOT nausea No 01/01/25 16:32 PIPE FINISHING SUPERVISOR.MDOT Vomiting No 01/01/25 16:32 PIPE FINISHING SUPERVISOR.MDOT Anesthesia Postop Eval I: Fluid Summary Crystalloid volume administer 200 01/01/25 16:32 PIPE FINISHING SUPERVISOR.MDOT (ml) Colloids volume administered ( ml) Blood Product volume administered (ml) Total IV fluid infused 200 01/01/25 16:32 PIPE FINISHING SUPERVISOR.MDOT Anesthesia Postop Eval I: Summary Notes Anesthesia Complication No 01/01/25 16:32 PIPE FINISHING SUPERVISOR.MDOT Anesthesia Complication Comment: Post-operative progress note Anesthesia: Postop Eval II Evaluation Mental status: Awake and Calm Pain Level: 0 nausea: No Vomiting: No Complications Anesthesia Complication: No 01/01/251648 Date Andres Omer CRNA Cosigner Signature: Date CC: Signed [facility] Magnesiumon 01-01-2025 Magnesium [Mass/Vol] 2.0 mg/dL Normal 1.5-2.2 [facility] Comment on above: Performed By: #### L 300.4310, L300.3900 #### [facility] [address] [place], [address] Magnesium measurement (mass/ volume)Ordered By: Myranda Shirley on 01-01-2025 Magnesium (Unsp spec) [Mass/Vol] 2.0 mg/dL 1.5-2.2 [facility] Partial Thromboplast Timeon 01-01-2025 aPTT Coag (Bld) [Time] 31.9 s Normal 24.1-36.2 [facility] Comment on above: Performed By: #### L 300.4310, L300.3900 #### [facility] [address] [place], [address] Phosphoruson 01-01-2025 Phosphate [Mass/Vol] 3.3 mg/dL Normal 2.7-4.5 [facility] Comment on above: Performed By: #### L 300.4310, L300.3900 #### [facility] [address] [place], [address] Prothrombin Time w/INRon INR Coag (PPP) [Relative time] 1.1 {INR} Normal [facility] Comment on above: Performed By: #### L 300.4310, L300.3900 #### [facility] [address] [place], [address] PT Coag (PPP) [Time] 14.9 s Normal 11.7-14.9 [facility] Comment on above: Performed By: #### L 300.4310, L300.3900 #### [facility] [address] [place], [address] Serum or plasma albumin/glob ulin mass ratioOrdered By: Myranda Shirley on 01-01-2025 Albumin/Globulin [Mass ratio] 1.5 {ratio} 0.9-2.4 [facility] Surgery Specimen Level Nubia 01-01-2025 Surgery Specimen Level IV Patient Age/Sex Location Account Attending Physician MARIETTA TEMPLE 79/F [facility] [id number] Dr. Carrillo Strong MD Specimen: [id number] Received: 01/02/25 Status: ОЛЬГА James Num: [id number] Spec Type: EGD BIOPSY Subm Dr: Austin Jaimes DO HEADER OPERATION: EGD with biopsies PRE-OP DIAGNOSIS: Gastrointestinal bleeding TISSUE SUBMITTED: A- Duodenum biopsy, B- Distal esophagus biopsy MICROSCOPIC DIAGNOSIS A. 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 Esophagus, distal: * Benign squamous epithelium * Oxynto-cardiac mucosa with chronic inflammation * No goblet cell metaplasia is identified MICROSCOPIC DESCRIPTION Slides are reviewed. GROSS DESCRIPTION A. Received in formalin in a container labeled with the patient's name, date of , and duodenum biopsy are 2 chaudhari-pink fragments of mucosal tissue, each measuring 0.5 x 0.2 x 0.2 cm. Submitted in toto in A1. B. Received in formalin in a container labeled with the patient's name, date of , and distal esophagus biopsy are 2 chaudhari-pink fragments of mucosal tissue, each measuring 0.5 x 0.3 x 0.2 cm. Submitted in toto in B1. [facility] 01-02-2025 CPT:03701m8 Patient Age/Sex Location Account Attending Physician MARIETTA TEMPLE 79/F [facility] [id number] Dr. Carrillo Strong MD Signed (signature on file) Dr. Jeffy Stoll MD 01/04/25 1608 Normal [facility] Comment on above: Performed By: #### L 500.2500, L100.0100 #### [facility] [address] [place], [address] 12 Lead EKGon 12-31-2024 12 Lead EKG [facility] Cardiovascular Services [address] [place] [address] 12 Lead EKG 12/31/24 1104 MR#: [id number] Acct: [id number] Name: MARIETTA TEMPLE Rep #: [id number] : 1945 79 From: Abdias Yan MD Attending Dr: Dr. Carrillo Strong MD Status: ADM IN Ordering Dr: Trenton Lenz MD Date: 12/31/24 Location: [facility] Sex: F C Admitted: 12/31/24 Test Reason : GENERAL Blood Pressure : */* mmHG Vent. Rate : 75 BPM Atrial Rate : 75 BPM P-R Int : 180 ms QRS Dur : 98 ms QT Int : 418 ms P-R-T Axes : 75 -25 39 degrees QTcB Int : 466 ms Normal sinus rhythm Normal ECG Confirmed by Abdias Yan ([id number]), editor managing director LE MCGREGOR ([id number]) on 01/01/2025 9:53:56 AM Referred By: Confirmed By: Abdias Yan 01/01/25 0953 Date Abdias Yan MD CC: Dr. Carrillo Strong MD; Dr. Trenton Lenz MD; Dr. Marika Park MD Signed Normal [facility] Absolute lymphocyte countOrd ered By: Trenton Lenz on 12-31-2024 Lymphocytes Auto (Unsp spec) [#/Vol] 1.39 10*3/uL 0.83-4.51 [facility] Absolute neutrophil countOrd ered By: Trenton Lenz on 12-31-2024 Neutrophils (Bld) [#/Vol] 6.5 10*3/uL 2.0-7.7 [facility] Anion gap in Serum or Plasma Ordered By: Trenton Lenz on 12-31-2024 Anion gap [Moles/Vol] 14 mmol/L 5-15 [facility] Automated lymphocyte count a s percentage of total leukocytesOrdered By: Trenton Lenz on 12-31-2024 Lymphocytes/100 WBC Auto (Unsp spec) 15.4 % Low 19-41 [facility] BRCon 12-31-2024 RC Normal [facility] Comment on above: Result Comment: [id number] OP RC TRANSFUSED 12/31/242007 [id number] OP RC TRANSFUSED 12/31/24 165 [id number] OP RC NOT AVAILABLE [id number] OP RC NOT AVAILABLE Performed By: #### L 500.2500, L100.0100 #### [facility] [address] [place], [address] BUN/creatinine ratioOrdered By: Trenton Lenz on 12-31-2024 Urea nitrogen/Creatinine [Mass ratio] 23.2 mg/mg High [facility]20 [facility] Basic Metabolic Profile (BMP )on 12-31-2024 BUN/CRE 23.2 RATIO [address] [place] [address] Comment on above: Performed By: #### L 100.0100, L300.3900, L500.3400, L500.2500 #### [facility] [address] [place], [address] Calcium [Mass/Vol] 9.4 mg/dL Normal 7.6-11.0 [facility] Comment on above: Performed By: #### L 100.0100, L300.3900, L500.3400, L500.2500 #### [facility] [address] [place], [address] Chloride [Moles/Vol] 101 mmol/L Normal 98-108 [facility] Comment on above: Performed By: #### L 100.0100, L300.3900, L500.3400, L500.2500 #### [facility] [address] [place], [address] CO2 [Moles/Vol] 22.3 mmol/L Normal 21.0-32.0 [facility] Comment on above: Performed By: #### L 100.0100, L300.3900, L500.3400, L500.2500 #### [facility] [address] [place], [address] Creatinine [Mass/Vol] 0.88 mg/dL Normal 0.70-1.20 [facility] Comment on above: Performed By: #### L 100.0100, L300.3900, L500.3400, L500.2500 #### [facility] [address] [place], [address] GAP 14 Normal 5-15 [facility] Comment on above: Performed By: #### L 100.0100, L300.3900, L500.3400, L500.2500 #### [facility] [address] [place], [address] GFR/1.73 sq M.predicted among non-blacks MDRD (S/P/Bld) [Vol rate/Area] 66 mL/min/{1.73_m2} Normal >60 [facility] Comment on above: Result Comment: mL/m in/1.73m2 CKD-EPI Creatinine Equation (2020) Performed By: #### L 100.0100, L300.3900, L500.3400, L500.2500 #### [facility] [address] [place], [address] Glucose [Mass/Vol] 113 mg/dL High 70-99 [facility] Comment on above: Performed By: #### L 100.0100, L300.3900, L500.3400, L500.2500 #### [facility] [address] [place], [address] Potassium [Moles/Vol] 3.4 mmol/L Normal 3.3-5.1 [facility] Comment on above: Performed By: #### L 100.0100, L300.3900, L500.3400, L500.2500 #### [facility] [address] [place], [address] Sodium [Moles/Vol] 137 mmol/L Normal 133-145 [facility] Comment on above: Performed By: #### L 100.0100, L300.3900, L500.3400, L500.2500 #### [facility] [address] [place], [address] Urea nitrogen [Mass/Vol] 20 mg/dL High 4-19 [facility] Comment on above: Performed By: #### L 100.0100, L300.3900, L500.3400, L500.2500 #### [facility] [address] [place], [address] Basophil percentageOrdered B y: Trenton Lenz on 12-31-2024 Basophils/100 WBC (Bld) 0.2 % 0-1 [facility] CBC W/Diff, Automatedon Absolute Lymph 1.39 X10 3/uL Normal 0.83-4.51 [facility] Comment on above: Order Comment: VELMA Pak. PREVIOUS SPECIMEN REJECTED DUE TOSPECIMEN BEING QNS. 12/31/24 1220 [employer] Performed By: #### L 300.4310, L300.3900 #### [facility] [address] [place], [address] Absolute Neut 6.5 X10 3/uL Normal 2.0-7.7 [facility] Comment on above: Order Comment: REDRA W. PREVIOUS SPECIMEN REJECTED DUE TOSPECIMEN BEING QNS. 12/31/24 1220 [employer]. Performed By: #### L 300.4310, L300.3900 #### [facility] [address] [place], [address] Basophils/100 WBC (Bld) 0.2 % Normal 0-1 [facility] Comment on above: Order Comment: REDRA W. PREVIOUS SPECIMEN REJECTED DUE TOSPECIMEN BEING QNS. 12/31/24 1220 [employer]. Performed By: #### L 300.4310, L300.3900 #### [facility] [address] [place], [address] Eosinophils/100 WBC (Bld) 1.1 % Normal 0-5 [facility] Comment on above: Order Comment: REDRA W. PREVIOUS SPECIMEN REJECTED DUE TOSPECIMEN BEING QNS. 12/31/24 1220 [employer]. Performed By: #### L 300.4310, L300.3900 #### [facility] [address] [place], [address] Erythrocyte distribution width (RBC) [Ratio] 15.0 % High 11.6-14.6 [facility] Comment on above: Order Comment: REDRA W. PREVIOUS SPECIMEN REJECTED DUE TOSPECIMEN BEING QNS. 12/31/24 1220 [employer]. Performed By: #### L 300.4310, L300.3900 #### [facility] [address] [place], [address] Hematocrit (Bld) [Volume fraction] 20.1 % Low 37-47 [facility] Comment on above: Order Comment: REDRA W. PREVIOUS SPECIMEN REJECTED DUE TOSPECIMEN BEING QNS. 12/31/24 1220 [employer] Performed By: #### L 300.4310, L300.3900 #### [facility] [address] [place], [address] Hemoglobin (Bld) [Mass/Vol] 6.2 g/dL Low 12.0-15.0 [facility] Comment on above: Order Comment: REDRA W. PREVIOUS SPECIMEN REJECTED DUE TOSPECIMEN BEING QNS. 12/31/24 1220 [employer] Performed By: #### L 300.4310, L300.3900 #### [facility] [address] [place], [address] IG% 0.600 Normal 0.0-0.9 [facility] Comment on above: Order Comment: REDRA W. PREVIOUS SPECIMEN REJECTED DUE TOSPECIMEN BEING QNS. 12/31/24 1220 [employer] Result Comment: IG% - Immature Granulocytes (promyelocytes, myelocytes and metamyelocytes) > 1% indicates that a LEFT SHIFT is Present. Performed By: #### L 300.4310, L300.3900 #### [facility] [address] [place], [address] Lymphocytes/100 WBC (Bld) 15.4 % Low 19-41 [facility] Comment on above: Order Comment: REDRA W. PREVIOUS SPECIMEN REJECTED DUE TOSPECIMEN BEING QNS. 12/31/24 1220 All Smith Performed By: #### L 300.4310, L300.3900 #### [facility] [address] [place], [address] MCH (RBC) [Entitic mass] 25.0 pg Low 27.0-32.0 [facility] Comment on above: Order Comment: REDRA W. PREVIOUS SPECIMEN REJECTED DUE TOSPECIMEN BEING QNS. 12/31/24 1220 All Smith Performed By: #### L 300.4310, L300.3900 #### [facility] [address] [place], [address] MCHC (RBC) [Mass/Vol] 30.8 g/dL Low 32-36 [facility] Comment on above: Order Comment: REDRA W. PREVIOUS SPECIMEN REJECTED DUE TOSPECIMEN BEING QNS. 12/31/24 1220 All Rodriguezr. Performed By: #### L 300.4310, L300.3900 #### [facility] [address] [place], [address] MCV (RBC) [Entitic vol] 81.0 fL Normal 81-99 [facility] Comment on above: Order Comment: REDRA W. PREVIOUS SPECIMEN REJECTED DUE TOSPECIMEN BEING QNS. 12/31/24 1220 All Rodriguezr. Performed By: #### L 300.4310, L300.3900 #### [facility] [address] [place], [address] Monocytes/100 WBC (Bld) 10.5 % High 0-10 [facility] Comment on above: Order Comment: REDRA W. PREVIOUS SPECIMEN REJECTED DUE TOSPECIMEN BEING QNS. 12/31/24 1220 All Rodriguezr. Performed By: #### L 300.4310, L300.3900 #### [facility] [address] [place], [address] Neutrophils/100 WBC (Bld) 72.2 % High 47-70 [facility] Comment on above: Order Comment: REDRA W. PREVIOUS SPECIMEN REJECTED DUE TOSPECIMEN BEING QNS. 12/31/24 1220 All Rodriguezr. Performed By: #### L 300.4310, L300.3900 #### [facility] [address] [place], [address] Nucleated RBC (Bld) [#/Vol] 0 10*3/uL Normal 0-5 [facility] Comment on above: Order Comment: REDRA W. PREVIOUS SPECIMEN REJECTED DUE TOSPECIMEN BEING QNS. 12/31/24 1220 All R Stoner. Performed By: #### L 300.4310, L300.3900 #### [facility] [address] [place], [address] Platelet mean volume (Bld) [Entitic vol] 10.6 fL Normal 6.2-12.0 [facility] Comment on above: Order Comment: REDRA W. PREVIOUS SPECIMEN REJECTED DUE TOSPECIMEN BEING QNS. 12/31/24 1220 All Stringer. Performed By: #### L 300.4310, L300.3900 #### [facility] [address] [place], [address] Platelets (Bld) [#/Vol] 330 10*3/uL Normal 150-450 [facility] Comment on above: Order Comment: REDRA W. PREVIOUS SPECIMEN REJECTED DUE TOSPECIMEN BEING QNS. 12/31/24 1220 All Stringer. Performed By: #### L 300.4310, L300.3900 #### [facility] [address] [place], [address] RBC (Bld) [#/Vol] 2.48 10*6/uL Low 4.2-5.4 [facility] Comment on above: Order Comment: REDRA W. PREVIOUS SPECIMEN REJECTED DUE TOSPECIMEN BEING QNS. 12/31/24 1220 All Smith Performed By: #### L 300.4310, L300.3900 #### [facility] [address] [place], [address] RDW SD 44.1 fl High 35.1-43.9 [facility] Comment on above: Order Comment: REDRA W. PREVIOUS SPECIMEN REJECTED DUE TOSPECIMEN BEING QNS. 12/31/24 1220 All Stringer. Performed By: #### L 300.4310, L300.3900 #### [facility] [address] [place], [address] WBC (Bld) [#/Vol] 9.0 10*3/uL Normal 4.4-11.0 [facility] Comment on above: Order Comment: VELMA Pak. PREVIOUS SPECIMEN REJECTED DUE TOSPECIMEN BEING QNS. 12/31/24 1220 All Johnny Michaelr. Performed By: #### L 300.4310, L300.3900 #### [facility] [address] [place], [address] Absolute Neut Normal 2.0-7.7 [facility] Comment on above: Result Comment: This specimen has been REJECTED due to Laboratory criteria: Quanity Not Sufficient. VICKY IN ER has been notified of need of recollection. 12/31/24 1218 All R Stoner Performed By: #### L 500.2500, L100.0100 #### [facility] [address] [place], [address] HCT Normal 37-47 [facility] Comment on above: Result Comment: This specimen has been REJECTED due to Laboratory criteria: Quanity Not Sufficient. VICKY IN ER has been notified of need of recollection. 12/31/24 1218 All R Stoner Performed By: #### L 500.2500, L100.0100 #### [facility] [address] [place], [address] HGB Normal 12.0-15.0 [facility] Comment on above: Result Comment: This specimen has been REJECTED due to Laboratory criteria: Quanity Not Sufficient. VICKY IN ER has been notified of need of recollection. 12/31/24 1218 All R Stoner Performed By: #### L 500.2500, L100.0100 #### [facility] [address] [place], [address] MCH Normal 27.0-32.0 [facility] Comment on above: Result Comment: This specimen has been REJECTED due to Laboratory criteria: Quanity Not Sufficient. VICKY IN ER has been notified of need of recollection. 12/31/24 1218 All R Stoner Performed By: #### L 500.2500, L100.0100 #### [facility] [address] [place], [address] MCHC Normal 32-36 [facility] Comment on above: Result Comment: This specimen has been REJECTED due to Laboratory criteria: Quanity Not Sufficient. VICKY IN ER has been notified of need of recollection. 12/31/24 1218 All R Stoner Performed By: #### L 500.2500, L100.0100 #### [facility] [address] [place], [address] MCV Normal 81-99 [facility] Comment on above: Result Comment: This specimen has been REJECTED due to Laboratory criteria: Quanity Not Sufficient. VICKY IN ER has been notified of need of recollection. 12/31/24 1218 All R Stoner Performed By: #### L 500.2500, L100.0100 #### [facility] [address] [place], [address] NEUT% Normal 47-70 [facility] Comment on above: Result Comment: This specimen has been REJECTED due to Laboratory criteria: Quanity Not Sufficient. VICKY IN ER has been notified of need of recollection. 12/31/24 1218 All R Stoner Performed By: #### L 500.2500, L100.0100 #### [facility] [address] [place], [address] PLT Normal 150-450 [facility] Comment on above: Result Comment: This specimen has been REJECTED due to Laboratory criteria: Quanity Not Sufficient. VICKY IN ER has been notified of need of recollection. 12/31/24 1218 All R Stoner Performed By: #### L 500.2500, L100.0100 #### [facility] [address] [place], [address] RBC Normal 4.2-5.4 [facility] Comment on above: Result Comment: This specimen has been REJECTED due to Laboratory criteria: Quanity Not Sufficient. VICKY IN ER has been notified of need of recollection. 12/31/24 1218 All R Stoner Performed By: #### L 500.2500, L100.0100 #### [facility] [address] [place], [address] RDW CV Normal 11.6-14.6 [facility] Comment on above: Result Comment: This specimen has been REJECTED due to Laboratory criteria: Quanity Not Sufficient. VICKY IN ER has been notified of need of recollection. 12/31/24 1218 All R Stoner Performed By: #### L 500.2500, L100.0100 #### [facility] [address] [place], [address] RDW SD Normal 35.1-43.9 [facility] Comment on above: Result Comment: This specimen has been REJECTED due to Laboratory criteria: Quanity Not Sufficient. VICKY IN ER has been notified of need of recollection. 12/31/24 1218 Lal R Stoner Performed By: #### L 500.2500, L100.0100 #### [facility] [address] [place], [address] WBC Normal 4.4-11.0 [facility] Comment on above: Result Comment: This specimen has been REJECTED due to Laboratory criteria: Quanity Not Sufficient. VICKY IN ER has been notified of need of recollection. 12/31/24 1218 All R Stoner Performed By: #### L 500.2500, L100.0100 #### [facility] [address] [place], [address] CNOVkang 12-31-2024 CNOV Office Visit (UCWSTR) MARIETTA TEMPLE ([id number]) 1945 F Date Time Provider Department 12/31/24 10:30 AM CARLOS IBARRA During your visit today, we recorded the following information about you: Carlos Ibarra APRN.[facility] 12/31/2024 10:28 AM Signed Patient came in with complaints of left-sided chest pain pressure and tightness. Patient says she is having shortness of breath. Patient does have some cardiac history. Patient says her arms feel very heavy she says she feels very fatigued. Concern for cardiac event. Patient is declining squad. Patient insisted on taking herself. Did tell her to go straight there. Allergies As of Date: 12/31/2024 Noted Allergy Reaction CODEINE 04/30/2005 8 - GI Upset Comments: Other reaction(s): Nausea SULFA (SULFONAMIDE ANTIBIOTICS) 11/04/2004 2 - Rash Comments: UNSURE OF REACTION Date Reviewed: 11/19/2024 Reviewed by: Tammie Rashid MA - Fully Assessed Primary Visit Diagnosis:Chest pain, unspecified type [R07.9] Prescriptions as of 12/31/2024 - metoprolol succinate ER (TOPROL XL) 50 mg 24 hr tablet Take 50 mg by mouth two times a day. - triamterene-hydroCHL OROthiazide (MAXZIDE-25) 37.5-25 mg per tablet Take 1 tab on every other day and the other days take 2 tabs - losartan (COZAAR) 100 mg tablet Take 1 tablet by mouth once daily. DOSE CHANGE, take one daily - conjugated estrogens (PREMARIN) vaginal cream Use small amount at vaginal opening twice a week - apixaban (ELIQUIS) 5 mg tab(s) Take 1 tablet by mouth two times a day. - levothyroxine (SYNTHROID) 112 mcg tablet Take 1 tablet by mouth once daily. Take on empty stomach. For thyroid - metoprolol succinate ER (TOPROL XL) 25 mg 24 hr tablet Take 1 tablet by mouth once daily. - meclizine (ANTIVERT) 25 mg tab Take 1 tablet by mouth three times daily. - Multivitamin capsule Take 1 capsule by mouth once daily. - magnesium oxide 200 mg magnesium tab Take 1 tablet by mouth once daily. - cholecalciferol (VITAMIN D3) 50 mcg (2,000 unit) tablet Take 2,000 Units by mouth once daily. - coenzyme Q10 (COENZYME Q-10) 100 mg cap capsule Take 100 mg by mouth once daily. Problem List As Of Date 12/31/2024 Noted Resolved FEMALE STRESS INCONTINENCE [N39.3] 11/04/2004 03/03/2009 UTERVAGINAL PROLAPSE NOS [N81.4] 11/04/2004 03/03/2009 TOX UNINOD GOIT NO NOREEN [E05.10] 04/30/2005 09/09/2006 Thyroid cancer [C73] 07/16/2005 Essential hypertension [I10] DYSMETABOLIC SYNDROME X [E88.810] 08/24/2007 RECTOCELE [N81.6] 02/29/2008 03/03/2009 RECTOCELE [N81.6] 03/03/2009 VAGINAL ENTEROCELE [N81.5] 03/03/2009 Cystocele, midline [N81.11] 11/03/2011 Indeterminate pulmonary nodules [R91.8] 12/18/2012 Hypothyroidism, postsurgical [E89.0] High serum thyroglobulin [R77.8] 12/20/2018 Meningioma (HCC) [D32.9] 03/02/2019 Heart palpitations [R00.2] 10/21/2019 Chronic right-sided low back pain without sciat*10/21/2019 History of thyroid cancer [Z85.850] 10/21/2019 Atrial flutter by electrocardiogram ([facility]) [I48.*05/05/2021 Vertigo [R42] 05/05/2021 Encounter Status:Closed by CARLOS IBARRA on 12/31/24 Normal [facility] Carbon dioxide, total [Moles /volume] in Central venous bloodOrdered By: Trenton Lenz on 12-31-2024 CO2 [Moles/Vol] 22.3 mmol/L 21.0-32.0 [facility] Chest PA and Lateralon 12-31 Chest PA and Lateral [facility] [address] [place], [place] [address] Chest PA and Lateral MR#: [id number] Acct: [id number] Name: MARIETTA TEMPLE Rep #: [id number] : 1945 F 79 From: Nigel Acevedo MD PCP: Dr. Marika Park MD Status: REG ER Study: Chest PA and Lateral Date of Exam: 12/31/24 Exam# [id number] Ordering Dr: Trenton Lenz MD EXAM: XR Chest, 2 Views CLINICAL INDICATION: CHEST PAIN TECHNIQUE: Frontal and lateral views of the chest. COMPARISON: No relevant prior studies available. FINDINGS: LUNGS AND PLEURAL SPACES: Unremarkable. No consolidation. No pneumothorax. HEART: Unremarkable. No cardiomegaly. MEDIASTINUM: Unremarkable. Normal mediastinal contour. BONES/JOINTS: Unremarkable. No acute fracture. RAD/Chest PA and Lateral IMPRESSION: No acute cardiopulmonary process. Reading Location: [facility] CC: Dr. Trenton Lenz MD; Dr. Marika Park MD Verifier Operator: Signed Normal [facility] Chloride assayOrdered By: Dg Lenz on 12-31-2024 Chloride [Moles/Vol] 101 mmol/L 98-108 [facility] Emergency Department Summary on 12-31-2024 Emergency Department Summary [facility] Medical Records Department [address] [place] [id number] Emergency Department Summary 12/31/24 MR#: [id number] Acct: [id number] Name: MARIETTA TEMPLE Rep #: [id number] : 1945 79 From: Trenton Lenz MD PCP: Dr. Marika Park MD Status:REG ER Location: ED HPI History of Present Illness Chief Complaint: Weakness Detail of Chief Complaint: Exertional dyspnea and fatigue. Informant: patient Onset/Context/Timing Onset: Days Context: Gradual Onset Timing: Intermittent Current Severity: Mild Maximum Severity: Mild Narrative Narrative: 79-year-old female history of atrial flutter on Eliquis and history of COPD. States since Tuesday she has had generalized weakness and fatigue. Exertional dyspnea at times some chest discomfort. Says she just does not have any energy. Denies any fever or chills. Denies any vomiting or diarrhea. Denies any dysuria. No abdominal pain. 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 Symptomatic menopausal or female climacteric states Vaginal enterocele, congenital or acquired Postmenopausal atrophic vaginitis Rectocele Plantar fasciitis Pain in joint, shoulder region Nontoxic multinodular goiter Indeterminate pulmonary nodules Hemorrhage of gastrointestinal tract, unspecified Cystocele, midline Benign neoplasm of colon Colon polyp Dyspnea on exertion Chest pain, unspecified Essential hypertension Ventricular ectopy Premature atrial contraction Paroxysmal atrial flutter Vision problems Thyroid cancer Skin cancer Osteoarthritis IBS (irritable bowel syndrome) Cancer Arthritis Ataxia Home Medications ???Medication ???Instructions ???Recorded ???Last Taken ???Type conjugated estrogens 0.625 mg/gram 1 dose vaginal .COMPLEX dryness 10/09/13 02/08/19 History vaginal cream magnesium oxide 200 mg PO DAILY 10/24/19 12/31/24 History multivitamin 1 cap PO DAILY 10/24/19 12/31/24 H istory triamterene 37.5 1 tab PO QODAY 07/16/21 12/31/24 H istory mg-hydrochlorothiazi de 25 mg tablet cholecalciferol (vitamin D3) 50 50 mcg PO DAILY 01/07/23 12/31/24 History mcg (2,000 unit) tablet coenzyme Q10 10 mg capsule 10 mg PO ONCE 01/07/23 12/31/24 Hi story levothyroxine 112 mcg tablet 112 mcg PO DAILY 01/07/23 12/30/24 History spacer #1 ea 02/22/23 Unknown Rx spacer #1 ea 03/21/23 Unknown Rx lactobacillus combination no.4 3 3,000 mmu cells PO DAILY supplemen t 08/15/24 12/31/24 History billion cell capsule (Probiotic) fluticasone propionate 230 2 inh inhalation BID #3 ea 5 12/31/24 Rx mcg-salmeterol 21 mcg/actuation HFA inhaler (Advair HFA) metoprolol succinate 50 mg 50 mg PO BID 90 days #180 tabs 12/31/24 Rx tablet,extended release 24 hr apixaban 5 mg tablet (Eliquis) 5 mg PO BID 12/31/24 12/31/24 Hist ory losartan 100 mg tablet 100 mg PO DAILY 12/31/24 12/31/24 History triamterene 37.5 2 tab PO QODAY 12/31/24 12/30/24 H istory mg-hydrochlorothiazi de 25 mg tablet Allergy/AdvReac Type Severity Reaction Status Date / Time Sulfa (Sulfonamide Allergy Rash Verified 12/31/24 10:33 Antibiotics) codeine AdvReac Nausea Verified 12/31/24 10:33 Family History Father , 1977 Alcoholism Emphysema of lung Sister , 2016 ANGINA Cancer Diabetes CVA (cerebral vascular accident) Thyroid disorder Uterine cancer Brother Cancer Diabetes Mother Diabetes Myocardial infarction Heart disease 1964-59 YEARS Hypertension Surgical History History of cholecystectomy History of thyroidectomy Hx of breast reduction, elective History of bilateral knee replacement Social History Smoking Status: Former smoker how long ago did patient quit smokin alcohol intake: never substance use type: does not use caffeine: Yes Type: coffee Number of servings: 4 and tea ROS ROS ED ROS Narrative Exertional dyspnea. Fatigue. Occasional chest pressure. Constitutional Constitutional ED: Denies chills or fever(s) Eyes Eyes: Denies blurry vision ENT ENT ED: Denies ear pain Cardiovascular Cardiovascular: Reports chest pain Respiratory/Chest Respiratory/Chest: Reports dyspnea and dyspnea on exertion Gastrointestinal Gastrointestinal: Denies abdominal pain Genitourinary Genitourinary ED: Denies dysuria or hematuria Musculoskeletal Musculoskeletal: Denies arthralgias Integumentary Denies a (more content not included)... Normal [facility] Eosinophil percentageOrdered By: Trenton Lenz on 12-31-2024 Eosinophils/100 WBC (Bld) 1.1 % 0-5 [facility] Erythrocyte distribution wid th ratioOrdered By: Trenton Lenz on 12-31-2024 Erythrocyte distribution width (RBC) [Ratio] 15.0 % High 11.6-14.6 [facility] Erythrocyte distribution wid th standard deviationOrdered By: Trenton Lenz on 12-31-2024 Erythrocyte distribution width (RBC) [Ratio] 44.1 fl High 35.1-43.9 [facility] Glomerular filtration rate ( GFR) estimation/1.73 sq m using serum, plasma, or whole bOrdered By: Trenton Lenz on 12-31-2024 GFR/1.73 sq M.predicted among non-blacks MDRD (S/P/Bld) [Vol rate/Area] 66 mL/min/{1.73_m2} >60 [facility] Comment on above: mL/min/1.73m2 CKD-EP I Creatinine Equation (2020) H AND P Exam - [facility] 12-31-2024 H&P Exam - Hospitalist [facility] Medical Records Department [address] [place] [address] H P Exam - Hospitalist 12/31/24 1433 MR#: [id number] Acct: [id number] Name: MARIETTA TEMPLE Rep #: [id number] : 1945 79 From: Myranda Shirley DO PCP: Dr. Marika Park MD Status:ADM IN [facility] - [facility] General Date of Admission: 12/31/24 Date of Service: 12/31/24 Chief Complaint: Fatigue/Exertional Dyspnea HPI Narrative MARIETTA TEMPLE, is a 79 F who presented to the emergency department at [facility] on 12/31/2024 with a chief complaint of shortness of breath with exertion and fatigue. Patient reported that since Tuesday she has been experiencing generalized weakness and fatigue. At times she was having chest discomfort however she is not currently having any. She indicated she just does not seem to have any energy. She denied any fever or chills. She has had no vomiting or diarrhea. She has had no constipation. She does indicate that her stool has been darker than usual and she is on Eliquis for history of atrial fibrillation/flutter . Patient indicated that her stool has been darker than typical for several months now. She was unable to give me an exact timeframe. She stated she had 2 very dark bowel movements that were blowouts over the weekend. 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 She states her stools are never hard and always soft. Her last dose of Eliquis was on the morning of presentation. She has never had this issue before. Her last colonoscopy was outpatient at [facility] in 2022. She has never had an EGD. Vital signs on presentation showed temperature of 98, heart rate 76, respiratory rate 16, blood pressure is 137/67, pulse ox was 97% on room air. CBC showed a marked anemia with a hemoglobin of 6.2. This was normocytic. Her most recent CBC we have on record is from August 2024 at which time she was 13.5. Chemistry panel was unremarkable. BUN/creatinine ratio was not all that significant. With a BUN of 20 and a serum creatinine of 0.88. Initial troponin was 10 with a delta pending. Chest x-ray was unremarkable for acute findings. EKG showed no evidence of acute ischemia. She is currently normal sinus rhythm. In the emergency department she was given acetaminophen 1 g x 1 dose and ordered 4 units of blood with 2 to be on hold and to to be given. Per discussion with ER physician Dr. Jaimes was consulted by the emergency department and will evaluate the patient on the medical floor. 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 Symptomatic menopausal or female climacteric states Vaginal enterocele, congenital or acquired Postmenopausal atrophic vaginitis Rectocele Plantar fasciitis Pain in joint, shoulder region Nontoxic multinodular goiter Indeterminate pulmonary nodules Hemorrhage of gastrointestinal tract, unspecified Cystocele, midline Benign neoplasm of colon Colon polyp Dyspnea on exertion Chest pain, unspecified Essential hypertension Ventricular ectopy Premature atrial contraction Paroxysmal atrial flutter Vision problems Thyroid cancer Skin cancer Osteoarthritis IBS (irritable bowel syndrome) Cancer Arthritis Ataxia Home Medications ???Medication ???Instructions ???Recorded ???Last Taken ???Type conjugated estrogens 0.625 mg/gram 1 dose vaginal .COMPLEX dryness 10/09/13 02/08/19 History vaginal cream magnesium oxide 200 mg PO DAILY 10/24/19 12/31/24 History multivitamin 1 cap PO DAILY 10/24/19 12/31/24 H istory triamterene 37.5 1 tab PO QODAY 07/16/21 12/31/24 H istory mg-hydrochlorothiazi de 25 mg tablet cholecalciferol (vitamin D3) 50 50 mcg PO DAILY 01/07/23 12/31/24 History mcg (2,000 unit) tablet coenzyme Q10 10 mg capsule 10 mg PO ONCE 01/07/23 12/31/24 Hi story levothyroxine 112 mcg tablet 112 mcg PO DAILY 01/07/23 12/30/24 History spacer #1 ea 02/22/23 Unknown Rx spacer #1 ea 03/21/23 Unknown Rx lactobacillus combination no.4 3 3,000 mmu cells PO DAILY supplemen t 08/15/24 12/31/24 History billion cell capsule (Probiotic) fluticasone propionate 230 2 inh inhalation BID #3 ea 5 12/31/24 Rx mcg-salmeterol 21 mcg/actuation HFA inhaler (Advair HFA) metoprolol succinate 50 mg 50 mg PO BID 90 days #180 tabs 12/31/24 Rx tablet,extended release 24 hr apixaban 5 mg tablet (Eliquis) 5 mg PO BID 12/31/24 12/31/24 Hist ory losartan 100 mg tablet 100 mg PO DAILY 12/31/24 12/31/24 History triamterene 37.5 2 tab PO QODAY 12/31/24 12/30/24 H istory mg-hydrochlorothiazi de 25 mg tablet Aller (more content not included)... Normal [facility] HH, Hemoglobin AND Hematocri ton 12-31-2024 Hemoglobin (Bld) [Mass/Vol] 5.8 g/dL Invalid Interpretation Code 12.0-15.0 [facility] Comment on above: Result Comment: CRIT ICAL VALUE CALLED TO Dallin SCANLON 12/31/24 1605 Kati Cabello. RESULTS READ BACK BY SAME. Performed By: #### L 300.4310, L300.3900 #### [facility] [address] [place], [address] Hematocrit (Bld) [Volume fraction] 19.2 % Low 37-47 [facility] Comment on above: Performed By: #### L 300.4310, L300.3900 #### [facility] [address] [place], [place], [address] Hematocrit Auto (Bld) [Volum e fraction]Ordered By: Trenton Lenz on 12-31-2024 Hematocrit (Bld) [Volume fraction] 20.1 % Low 37-47 [facility] Hemoglobin measurementOrdere d By: Trenton Lenz on 12-31-2024 Hemoglobin (Bld) [Mass/Vol] 6.2 g/dL Low 12.0-15.0 [facility] Immature granulocytes/100 WB C Auto (Bld)Ordered By: Trenton Lenz on 12-31-2024 Immature granulocytes/100 WBC (Bld) 0.600 % 0.0-0.9 [facility] Comment on above: IG% - Immature Granu locytes (promyelocytes, myelocytes and metamyelocytes) > 1% indicates that a LEFT SHIFT is Present. L499.0042on 12-31-2024 Trop T High Sen 10 ng/L Normal <=14 [facility] Comment on above: Order Comment: NEED DRAWN 2 HOURS AFTER FIRST TROPONIN. Performed By: #### L 300.4310, L300.3900 #### [facility] [address] [place], [address] L501.4021on 12-31-2024 Trop T High Sen 10 ng/L Normal <=14 [facility] Comment on above: Performed By: #### L 100.0100, L300.3900, L500.3400, L500.2500 #### [facility] [address] [place], [place], [id number] MCV (mean corpuscular volume ) determinationOrdered By: Trenton Lenz on 12-31-2024 MCV (RBC) [Entitic vol] 81.0 fL 81-99 [facility] MR/CON.PCM.GIkang 12-31-2024 MR/CON.PCM.GI [facility] Medical Records Department [address] [place] [address] Consultation - GI 12/31/241924 MR#: [id number] Acct: [id number] Name: MARIETTA TEMLPE Rep #: [id number] : 1945 79 From: Austin Jaimes DO PCP: Dr. Marika Park MD Status:ADM [facility] H[facility] Consult Data Date of Consult: 12/31/24 HPI Narrative Reason for Consultation: GI bleed HPI Narrative: MARIETTA TEMPLE, is a 79 F who presents with worsening fatigue and shortness of breath. She has a history of atrial fibrillation/atrial flutter. She also has COPD. In ED she was hypertensive and mildly tachycardic. WBC 9.0, Hgb 6.2 L, Hct 20.1 L, MCV 81.0, Plt Count 330. 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 Symptomatic menopausal or female climacteric states Vaginal enterocele, congenital or acquired Postmenopausal atrophic vaginitis Rectocele Plantar fasciitis Pain in joint, shoulder region Nontoxic multinodular goiter Indeterminate pulmonary nodules Hemorrhage of gastrointestinal tract, unspecified Cystocele, midline Benign neoplasm of colon Colon polyp Dyspnea on exertion Chest pain, unspecified Essential hypertension Ventricular ectopy Premature atrial contraction Paroxysmal atrial flutter Vision problems Thyroid cancer Skin cancer Osteoarthritis IBS (irritable bowel syndrome) Cancer Arthritis Ataxia Home Medications ???Medication ???Instructions ???Recorded ???Last Taken ???Type conjugated estrogens 0.625 mg/gram 1 dose vaginal .COMPLEX dryness 10/09/13 02/08/19 History vaginal cream magnesium oxide 200 mg PO DAILY 10/24/19 12/31/24 History multivitamin 1 cap PO DAILY 10/24/19 12/31/24 H istory triamterene 37.5 1 tab PO QODAY 07/16/21 12/31/24 H istory mg-hydrochlorothiazi de 25 mg tablet cholecalciferol (vitamin D3) 50 50 mcg PO DAILY 01/07/23 12/31/24 History mcg (2,000 unit) tablet coenzyme Q10 10 mg capsule 10 mg PO ONCE 01/07/23 12/31/24 Hi story levothyroxine 112 mcg tablet 112 mcg PO DAILY 01/07/23 12/30/24 History spacer #1 ea 02/22/23 Unknown Rx spacer #1 ea 03/21/23 Unknown Rx lactobacillus combination no.4 3 3,000 mmu cells PO DAILY supplemen t 08/15/24 12/31/24 History billion cell capsule (Probiotic) fluticasone propionate 230 2 inh inhalation BID #3 ea 5 12/31/24 Rx mcg-salmeterol 21 mcg/actuation HFA inhaler (Advair HFA) metoprolol succinate 50 mg 50 mg PO BID 90 days #180 tabs 12/31/24 Rx tablet,extended release 24 hr apixaban 5 mg tablet (Eliquis) 5 mg PO BID 12/31/24 12/31/24 Hist ory losartan 100 mg tablet 100 mg PO DAILY 12/31/24 12/31/24 History triamterene 37.5 2 tab PO QODAY 12/31/24 12/30/24 H istory mg-hydrochlorothiazi de 25 mg tablet Allergy/AdvReac Type Severity Reaction Status Date / Time Sulfa (Sulfonamide Allergy Rash Verified 12/31/24 10:33 Antibiotics) codeine AdvReac Nausea Verified 12/31/24 10:33 Family History Father , 1977 Alcoholism Emphysema of lung Sister , 2016 ANGINA Cancer Diabetes CVA (cerebral vascular accident) Thyroid disorder Uterine cancer Brother Cancer Diabetes Mother Diabetes Myocardial infarction Heart disease 1964-59 YEARS Hypertension Surgical History History of cholecystectomy History of thyroidectomy Hx of breast reduction, elective History of bilateral knee replacement Social History Smoking Status: Former smoker how long ago did patient quit smokin alcohol intake: never substance use type: does not use caffeine: Yes Type: coffee Number of servings: 4 and tea ROS Constitutional Constitutional: Denies fatigue, fever(s), poor appetite, weight gain or weight loss Gastrointestinal Gastrointestinal: Denies belching, bloating, change in bowel habits, change in stool character, chewing difficulty, coffee ground emesis, constipation, cramping, diarrhea, dyspepsia, dysphagia, early satiety, excessive flatus, fecal incontinence, heartburn, hematemesis, hematochezia, hemorrhoids, loose stools, melena, nausea, odynophagia, rectal bleeding, tenesmus, vomiting or weight changes Physical Exam Const alert, oriented x3, no apparent distress and healthy appearing General Appearance: cooperative GI normal to inspection, nondistended, normoactive bowel sounds, soft to palpation, non-tender and non- distended Percussion: normal to percussion Rectal Exam: de (more content not included)... Normal [facility] Mean corpuscular hemoglobin (MCH) determinationOrdered By: Trenton Lenz on 12-31-2024 MCH (RBC) [Entitic mass] 25.0 pg Low 27.0-32.0 [facility] Mean corpuscular hemoglobin concentration (MCHC) determinationOrdered By: Trenton Lenz on 12-31-2024 MCHC (RBC) [Mass/Vol] 30.8 g/dL Low 32-36 [facility] Mean platelet volume determi nationOrdered By: Trenton Lenz on 12-31-2024 Platelet mean volume (Bld) [Entitic vol] 10.6 fL 6.2-12.0 [facility] Monocyte percentageOrdered B y: Trenton Lenz on 12-31-2024 Monocytes/100 WBC (Bld) 10.5 % High 0-10 [facility] Neutrophil percentageOrdered By: Trenton Lenz on 12-31-2024 Neutrophils/100 WBC (Bld) 72.2 % High 47-70 [facility] Nucleated red blood cell per centageOrdered By: Trenton Lenz on 12-31-2024 Nucleated RBC/100 WBC (Bld) [Ratio] 0 % 0-5 [facility] Platelet countOrdered By: Dg Lenz on 12-31-2024 Platelets (Bld) [#/Vol] 330 10*3/uL 150-450 [facility] Potassium measurement (mass/ volume)Ordered By: Trenton Lenz on 12-31-2024 Potassium (Unsp spec) [Mass/Vol] 3.4 mmol/L 3.3-5.1 [facility] RBC Auto (Bld) [#/Vol]Ordere d By: Trenton Lenz on 12-31-2024 RBC (Bld) [#/Vol] 2.48 10*6/uL Low 4.2-5.4 [facility] Serum creatinine measurement (mass/volume)Ordered By: Trenton Lenz on 12-31-2024 Creatinine [Mass/Vol] 0.88 mg/dL 0.70-1.20 [facility] Serum glucose measurement (m ass/volume)Ordered By: Trenton Lenz on 12-31-2024 Glucose [Mass/Vol] 113 mg/dL High 70-99 [facility] Serum or plasma calcium elke urement (mass/volume)Ordered By: Trenton Lenz on 12-31-2024 Calcium [Mass/Vol] 9.4 mg/dL 7.6-11.0 [facility] Serum or plasma urea nitroge n measurement (mass/volume)Ordered By: Trenton Lenz on 12-31-2024 Urea nitrogen [Mass/Vol] 20 mg/dL High 4-19 [facility] Sodium levelOrdered By: Trenton Lenz on 12-31-2024 Sodium [Moles/Vol] 137 mmol/L 133-145 [facility] Troponin T.cardiac [Mass/vol ume] in Serum or Plasma by High sensitivity methodOrdered By: Trenton Lenz on 12-31-2024 Troponin T.cardiac High sensitivity method [Mass/Vol] 10 ng/L <14 [facility] Troponin T.cardiac High sensitivity method [Mass/Vol] 10 ng/L <14 [facility] Type AND Screenon 12-31-2024 Ab SCREEN GEL Negative Normal [facility] Comment on above: Order Comment: CMV N EG? NNumber of units to transfuse: 2Is there a >20% drop in pt's BP? NIs the pt's CVP (central venous pressure) <3 cm/H2O? NIs the EBL >/= 1000ml in adults or >/= 12ml/kg in children?YIs there an orthostatic change in pt's BP(SBP drop>10mmHg)? YIs pt's HR > 100 bpm? NReason for Ordering Blood: AcuteAre the blood/blood products to be transfused? YIs the patient having/had surgery? NHas pt arrived? YNWhcydney ReadyNYHGI Performed By: #### L 500.2500, L100.0100 #### [facility] [place], [address] White blood cell (WBC) count Ordered By: Trenton Lenz on 12-31-2024 WBC (Bld) [#/Vol] 9.0 10*3/uL 4.4-11.0 [facility] 11-19-2024 CNOV Office Visit (UCWSTR) MARIETTA TEMPLE ([id number]) 1945 F Date Time Provider Department 11/19/24 4:00 PM RAUL BONILLA [facility] [place] During your visit today, we recorded the following information about you: Temperature Pulse Respiration Blood pressure 97.4 degrees 70/minute 18/minute 124/70 Weight 86.9 kg Raul Bonilla MD 11/19/2024 4:33 PM Signed [facility] Subjective Marietta Temple is a 79 year old female. Patient presents with: Chest Congestion: cough x 5 days Patient's had cough and congestion for 4 days. I wrote it 1 her only 1 chest feels tight and she is having trouble producing anything out of that. She had rhinorrhea increase over the weekend but has returned to normal. She has chronic postnasal drainage. She has used mucus relief [id number]. She continues to use her COPD inhaler twice a day prescribed by her change management specialist. Pulmonology note from September reveals treatment with prednisone for COPD exacerbation. She denies fever, chills, body aches, nausea, vomiting, diarrhea, or leg edema. She is little more tired than usual. Review of Systems Objective BP 124/70 Pulse 70 Temp 36.3 ?C (97.4 ?F) Resp 18 Wt 86.9 kg (191 lb 9.3 oz) SpO2 95% BMI 32.11 kg/m? Physical Exam Constitutional: General: She is not in acute distress. Appearance: Normal appearance. She is not ill-appearing. HENT: Right Ear: Tympanic membrane and ear canal normal. Left Ear: Tympanic membrane and ear canal normal. Nose: No congestion or rhinorrhea. Mouth/Throat: Mouth: Mucous membranes are moist. Pharynx: No oropharyngeal exudate or posterior oropharyngeal erythema. Eyes: Extraocular Movements: Extraocular movements intact. Conjunctiva/sclera: Conjunctivae normal. Pupils: Pupils are equal, round, and reactive to light. Cardiovascular: Rate and Rhythm: Normal rate and regular rhythm. Pulmonary: Effort: No respiratory distress. Breath sounds: Wheezing and rales (throughout) present. Musculoskeletal: Cervical back: Neck supple. No tenderness. Right lower leg: Edema (trace pitting edema) present. Left lower leg: Edema (1+ pitting) present. Lymphadenopathy: Cervical: No cervical adenopathy. Neurological: Mental Status: She is alert. {ASSESSMENT/PLAN: 1. COPD with exacerbation (HCC) - ICD9: 491.21, ICD10: J44.1 - PREDNISONE 20 MG TABLET burst Follow up with worsening cough, worsening shortness of breath, increasing chest pain, or late onset fever. Raul Bonilla MD History and Record Review External record(s) reviewed: prior outpatient record. Findings from review of outpatient records: Pulmonology consult from September Differential Diagnoses - COPD exacerbation is more likely for the following reason(s): suggested by HANDP - pneumonia is less likely for the following reason(s): lack of fever/malaise - CHF is less likely for the following reason(s): denies change in leg edema Additional Tests or Interventions The following testing was considered but ultimately not selected after discussion with patient/family: CXR Procedures Allergies As of Date: 11/19/2024 Noted Allergy Reaction CODEINE 04/30/2005 8 - GI Upset Comments: Other reaction(s): Nausea SULFA (SULFONAMIDE ANTIBIOTICS) 11/04/2004 2 - Rash Comments: UNSURE OF REACTION Date Reviewed: 11/19/2024 Reviewed by: Tammie Rashid MA - Fully Assessed Reason for Visit: Chest Congestion [236] Cmt: cough x 5 days Primary Visit Diagnosis:COPD with exacerbation (HCC) [J44.1] Order(s):predniSONE (DELTASONE) 20 mg tabletTake 2 tablets by mouth once daily for 5 days.Disp: 10 tabletRfl: 0 Prescriptions as of 11/19/2024 - metoprolol succinate ER (TOPROL XL) 50 mg 24 hr tablet Take 50 mg by mouth two times a day. - predniSONE (DELTASONE) 20 mg tablet Take 2 tablets by mouth once daily for 5 days. - triamterene-hydroCHL OROthiazide (MAXZIDE-25) 37.5-25 mg per tablet Take 1 tab on every other day and the other days take 2 tabs - losartan (COZAAR) 100 mg tablet Take 1 tablet by mouth once daily. DOSE CHANGE, take one daily - conjugated estrogens (PREMARIN) vaginal cream Use small amount at vaginal opening twice a week - apixaban (ELIQUIS) 5 mg tab(s) Take 1 tablet by mouth two times a day. - levothyroxine (SYNTHROID) 112 mcg tablet Take 1 tablet by mouth once daily. Take on empty stomach. For thyroid - metoprolol succinate ER (TOPROL XL) 25 mg 24 hr tablet Take 1 tablet by mouth once daily. - meclizine (ANTIVERT) 25 mg tab Take 1 tablet by mouth three times daily. - Multivitamin capsule Take 1 capsule by mouth once daily. - magnesium oxide 200 mg magnesium tab Take 1 tablet by mouth once daily. - cholecalciferol (VITAMIN D3) 50 mcg (2,000 unit) tablet Take 2,000 Units by mouth once daily. - coenzyme Q10 (COENZYME Q-10) 100 mg cap capsule Take 100 mg by mouth once daily. Probl (more content not included)... Normal [facility] Pulmonary Visit Reporton Pulmonary Visit Report [facility] of [address] [place] [address] OFFICE VISIT Date of Service: 09/18/24 MR#: [id number] Acct: [id number] Name: MARIETTA TEMPLE Rep #: [id number] : 1945 Provider: KAMILLE Johnson Age/Sex: 79/F [place] [facility] [place] Status: Signed Assessment and Plan Assessment and Plan (1) COPD (chronic obstructive pulmonary disease): Status: Chronic Qualifiers: COPD type: COPD with acute exacerbation Qualified Code(s): J44.1 - Chronic obstructive pulmonary disease with (acute) exacerbation Plan: Deteriorated. The patient does appear to be an exacerbation of COPD today. Influenza A has been running in the community. However, the patient's symptoms started 4 days ago and at the time test results would return the patient would be outside of the window of treatment for Tamiflu. For this reason, I am just going to treat her with a burst of prednisone for the exacerbation. I do not believe that antibiotics are necessary. Continue maintenance medication Advair. No additional testing today. Follow-up in the office in 6 months. Contact the office with any new or worsening symptoms in the meantime. Medications: New prednisone administer with food or milk 60 mg (3 x 20 mg) PO QDAY 5 days 15 tabs 0RF Refilled fluticasone propion-salmeterol 230-21 mcg/actuation (Advair HFA) 2 inhalations inhalation BID 3 ea 3RF Plan Details Follow Up: 6 Months ([facility]) HPI 6 M FU Chief Complaint: Cough HPI Comments Details: This patient presents to the office today for follow-up of her COPD. She is ambulatory and currently on room air. She has not recently been seen in the ED or urgent care for any respiratory illness. She has not required any antibiotics or prednisone for any breathing problems. However, she does report that on September 14, 2024 she developed chills and body aches as well as fatigue. She also had shortness of breath and cough. This morning she experienced nausea after eating breakfast, she described it as feeling queasy. She is compliant with Advair twice daily. She does report rinsing her mouth out after each use. She has not recently needed her albuterol rescue inhaler. She has not recently utilize Mucinex because she was not sure if it contained acetaminophen. She does have shortness of breath on exertion. She has a daily cough productive of clear to clear sputum. She is experiencing sinus drainage and chest congestion. She has had wheezing recently but denies any, chest pain or palpitations. She is a previous smoker. If you recall, she quit smoking back in the year 1999. She did smoke for 30 or 40 years. Intake Vital Signs 12/27/23 08:26 09/18/24 10:11 Height 5 ft 4 in 5 ft 4 in Weight: 190 lb BMI 32.5 BP 126/66 H Blood Pressure Location Lt brachial Position Sitting Respiration 18 Pulse 62 Pulse Source Monitor Temp 97.3 F L Temperature Source Temporal Artery Pulse Oximetry (%) 95 Oxygen Delivery Method room air Intake Visit Reasons: 6 M FU Chief Complaint: FU chronic respiratory conditions Swatch Cutter Required: No Accompanied by: Self Allergies Sulfa (Sulfonamide Antibiotics) Allergy (Verified 09/18/24 13:51) Rash codeine Adverse Reaction (Verified 09/18/24 13:51) Nausea Medications ???Medication ???Instructions ???Recorded ???Confirmed ???Type conjugated estrogens 0.625 mg/gram 1 dose vaginal DAILY dryness 06/1409/18/24 History vaginal cream magnesium oxide 200 mg PO DAILY 10/24/19 09/18/24 History multivitamin 1 cap PO DAILY 10/24/19 09/18/24 H istory apixaban 5 mg tablet (Eliquis) 5 mg PO BID #74 tabs 04/26/2109/01 Rx losartan 50 mg tablet 50 mg PO DAILY 07/16/21 09/18/24 H istory triamterene 37.5 1 tab PO DAILY 07/16/21 09/18/24 H istory mg-hydrochlorothiazi de 25 mg tablet cholecalciferol (vitamin D3) 50 50 mcg PO DAILY 01/07/23 09/18/24 History mcg (2,000 unit) tablet coenzyme Q10 10 mg capsule 10 mg PO ONCE 01/07/23 09/18/24 Hi story levothyroxine 112 mcg tablet 112 mcg PO DAILY 01/07/23 09/18/24 History spacer #1 ea 02/22/23 09/18/24 Rx spacer #1 ea 03/21/23 09/18/24 Rx lactobacillus combination no.4 3 3,000 mmu cells PO DAILY supplemen t 08/15/24 09/18/24 History billion cell capsule (Probiotic) metoprolol succinate 50 mg 50 mg PO DAILY 90 days #90 tabs 09/18/24 Rx tablet,extended release 24 hr fluticasone propionate 230 2 inh inhalation BID #3 ea 5 09/18/24 Rx mcg-salmeterol 21 mcg/actuation HFA inhaler (Advair HFA) prednisone 20 mg tablet 60 mg (3 x 20 mg) PO QDAY 5 days 0 09/18/24 09/18/24 Rx #15 tabs Have you fallen in the past year?: No PFSH Medical History ... Normal [facility] 12 Lead EKG performed [place] [facility] [place]-06-[place]24 12 Lead EKG performed by [facility] [address] 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 ABNORMAL Electronically signed on 09/12/2024 at 09:40 by Mamadou Manriquewood Software Version [id number] 09/12/24 0944 Date Toby Pinto NP GROVE WORKER-C CC: Dr. Marika Park MD Date Dictated: 09/06/24 1147 Date Transcribed: 09/06/24 114 Verifier Operator: KAYCEE Signed Normal [facility] Cardiology Visit Reporton Cardiology Visit Report [facility] [address] [place] [address] OFFICE VISIT Date of Service: 09/06/24 MR#: [id number] Acct: [id number] Name: MARIETTA TEMPLE Rep #: [id number] : 1945 Provider: GROVE WORKER-Anitra villasenor Age/Sex: 79/F [place] [facility] [place] Status: Signed HPI HPI History of Present Illness Details: This is a 79-year-old white female who presents today for an outpatient cardiovascular consultation based upon concerns of underlying palpitations, chest discomfort, and subsequent findings of atrial flutter. She presented to the [facility] Emergency Department on 04-26-2021 for the aforementioned concerns. She was found to be in atrial flutter at that time. While in the emergency department, she had spontaneous conversion to sinus rhythm. She was eventually released home for continued outpatient cardiovascular follow-up. In the interim she was placed on medical therapy with beta-baldev therapy and anticoagulant therapy. She presented to [facility] Emergency Department again on 08/15/2024 for palpitations. She has noted be in atrial fibrillation with RVR. Her metoprolol was increased to 50 mg p.o. daily. Twelve-lead ECG on 09/06/2024 sinus rhythm with PAC at 70 bpm. She denies chest, arm, jaw, or neck discomfort. She states intermittent palpitations that she describes as fast. She notes this to wake her up. She states bilateral lower extremity edema with left worse than right. She denies claudication. She denies shortness of breath with activity, shortness of breath at rest, orthopnea, or PND. She denies chronic cough. She denies significant, sudden weight gain. She denies lightheadedness, dizziness, near-syncope, or syncope. She acknowledges occasional vertigo. She denies blood in urine, blood in stool, or epistaxis. He denies fever with chills. She denies myalgia. She denies fatigue. Her exercise level has remained stable. Intake Vital Signs 08/15/24 05:02 09/06/24 11:22 Height 5 ft 4 in 5 ft 4 in Weight: 189 lb BMI 32.4 BP 122/66 H Blood Pressure Location Lt brachial Position Sitting Respiration 18 Pulse 71 Pulse Source NIBP Intake Visit Reasons: S/P [facility] 08/15 Swatch Cutter Required: No Is patient in pain?: No Allergies Sulfa (Sulfonamide Antibiotics) Allergy (Verified 09/06/24 11:28) Rash codeine Adverse Reaction (Verified 09/06/24 11:28) Nausea Medications ???Medication ???Instructions ???Recorded ???Confirmed ???Type conjugated estrogens 0.625 mg/gram 1 dose vaginal DAILY dryness 06/1409/06/24 History vaginal cream magnesium oxide 200 mg PO DAILY 10/24/19 09/06/24 History multivitamin 1 cap PO DAILY 10/24/19 09/06/24 H istory apixaban 5 mg tablet (Eliquis) 5 mg PO BID #74 tabs 04/26/2101/23 Rx losartan 50 mg tablet 50 mg PO DAILY 07/16/21 09/06/24 H istory triamterene 37.5 1 tab PO DAILY 07/16/21 09/06/24 H istory mg-hydrochlorothiazi de 25 mg tablet cholecalciferol (vitamin D3) 50 50 mcg PO DAILY 01/07/23 09/06/24 History mcg (2,000 unit) tablet coenzyme Q10 10 mg capsule 10 mg PO ONCE 01/07/23 09/06/24 Hi story levothyroxine 112 mcg tablet 112 mcg PO DAILY 01/07/23 09/06/24 History spacer #1 ea 02/22/23 06/30/23 Rx spacer #1 ea 03/21/23 06/30/23 Rx fluticasone propionate 230 2 inh inhalation BID #3 ea 2 3 09/06/24 Rx mcg-salmeterol 21 mcg/actuation HFA inhaler (Advair HFA) lactobacillus combination no.4 3 3,000 mmu cells PO DAILY supplemen t 08/15/24 09/06/24 History billion cell capsule (Probiotic) metoprolol succinate 50 mg 50 mg PO DAILY 90 days #90 tabs 09/06/24 Rx tablet,extended release 24 hr Ejection fraction %: 60 Have you fallen in the past year?: No PFSH Medical History Other nonspecific abnormal finding of lung field 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 Symptomatic menopausal or female climacteric states Vaginal enterocele, congenital or acquired Postmenopausal atrophic vaginitis Rectocele Plantar fasciitis Pain in joint, shoulder region Nontoxic multinodular goiter Indeterminate pulmonary nodules Hemorrhage of gastrointestinal tract, unspecified Cystocele, midline Benign neoplasm of colon Colon polyp Dyspnea on exertion Chest pain, unspecified Essential hypertension Ventricular ectopy Premature atrial contraction Paroxysmal atrial flutter Vision problems Thyroid cancer Skin cancer Osteoarthritis IBS (irritable bowel syndrome) Cancer Arthritis Ataxia Surgical History History of cholecystectomy History of thyroidectomy Hx of breast reduction, elective History of bilateral knee replacemen (more content not included)... Normal [facility] 12 Lead EKGon 08-15-2024 12 Lead EKG [facility] [address] [place] [address] 12 Lead EKG 08/15/24 0507 MR#: [id number] Acct: [id number] Name: MARIETTA TEMPLE Rep #: [id number] : 1945 79 From: Kalpana Reddy MD Attending Dr: Status: DEP ER Ordering Dr: Lemuel Willett DO Date: 08/15/24 Location: ED Sex: F C Admitted: Test Reason : DYSRHYTHMIA Blood Pressure : */* mmHG Vent. Rate : 123 BPM Atrial Rate : * BPM P-R Int : * ms QRS Dur : 92 ms QT Int : 330 ms P-R-T Axes : * -30 64 degrees QTcB Int : 472 ms Atrial fibrillation with rapid ventricular response Left axis deviation Pulmonary disease pattern Nonspecific ST abnormality Abnormal ECG Confirmed by DEMETRIO MEYERS, AG ([id number]), editor managing director MICHAEL REED ([id number]) on 08/27/2024 2:20:05 PM Referred By: ESTRELLITA Confirmed By: AG REDDY MD 08/27/24 1420 Date Kalpana Reddy MD CC: Dr. Marika Park MD; Lemuel Willett DO Signed Normal [facility] Absolute neutrophil countOrd ered By: Lemuel Willett on 08-15-2024 Neutrophils (Bld) [#/Vol] 5.7 10*3/uL 2.0-7.7 [facility] Basic Metabolic Profile (BMP )on 08-15-2024 BUN/CRE 18.3 RATIO Normal 10- [facility] Comment on above: Performed By: #### L 100.0100, L300.3900, L500.3400, L500.2500 #### [facility] [address] [place], [address] CA,Total 9.8 mg/dL Normal 8.5-10.1 [facility] Comment on above: Performed By: #### L 100.0100, L300.3900, L500.3400, L500.2500 #### [facility] [address] [place], [address] Chloride [Moles/Vol] 101 mmol/L Normal 98-107 [facility] Comment on above: Performed By: #### L 100.0100, L300.3900, L500.3400, L500.2500 #### [facility] [address] [place], [address] CO2 [Moles/Vol] 32.0 mmol/L Normal 21.0-32.0 [facility] Comment on above: Performed By: #### L 100.0100, L300.3900, L500.3400, L500.2500 #### [facility] [address] [place], [address] Creatinine [Mass/Vol] 0.88 mg/dL Normal 0.55-1.02 [facility] Comment on above: Result Comment: The validity of the calculated GFR GFRAA in patients over 70 years has not been determined. Clinical correlation is essential. Performed By: #### L 100.0100, L300.3900, L500.3400, L500.2500 #### [facility] [address] [place], [address] ECRCL 53.50 ml/min Normal [facility] Comment on above: Performed By: #### L 100.0100, L300.3900, L500.3400, L500.2500 #### [facility] [address] [place], [address] EST GFR - AA 80 mL/min Normal >60 [facility] Comment on above: Result Comment: Afri can Indonesian GFR Calc Performed By: #### L 100.0100, L300.3900, L500.3400, L500.2500 #### [facility] [address] [place], [address] GAP 2 Low 5-15 [facility] Comment on above: Performed By: #### L 100.0100, L300.3900, L500.3400, L500.2500 #### [facility] [address] [place], [address] GFR/1.73 sq M.predicted among non-blacks MDRD (S/P/Bld) [Vol rate/Area] 66 mL/min/{1.73_m2} Normal >60 [facility] Comment on above: Result Comment: Non- GFR Calc Performed By: #### L 100.0100, L300.3900, L500.3400, L500.2500 #### [facility] [address] [place], [address] Glucose [Mass/Vol] 131 mg/dL High 74-106 [facility] Comment on above: Result Comment: Fast ing Glucose result greater than or equal to 126 mg/dL suggests DIABETES MELLITUS per A.D.A. criteria. Performed By: #### L 100.0100, L300.3900, L500.3400, L500.2500 #### [facility] [address] [place], [address] Potassium [Moles/Vol] 3.2 mmol/L Low 3.5-5.1 [facility] Comment on above: Performed By: #### L 100.0100, L300.3900, L500.3400, L500.2500 #### [facility] [address] [place], [address] Sodium [Moles/Vol] 135 mmol/L Low 136-145 [facility] Comment on above: Performed By: #### L 100.0100, L300.3900, L500.3400, L500.2500 #### [facility] [address] [place], [address] Urea nitrogen [Mass/Vol] 16 mg/dL Normal 7-18 [facility] Comment on above: Performed By: #### L 100.0100, L300.3900, L500.3400, L500.2500 #### [facility] [address] [place], [address] Basophil percentageOrdered B y: Lemuel Willett on 08-15-2024 Basophils/100 WBC (Bld) 0.5 % 0-1 [facility] Blood urea nitrogen (BUN)/cr eatinine ratioOrdered By: Lemuel Willett on 08-15-2024 Urea nitrogen/Creatinine [Mass ratio] 18.3 mg/mg 10-20 [facility] CBC W/Diff, Automatedon 08-01 Absolute Lymph 2.43 X10 3/uL Normal 0.83-4.51 [facility] Comment on above: Performed By: #### L 100.0100, L300.3900, L500.3400, L500.2500 #### [facility] [address] [place], [address] Absolute Neut 5.7 X10 3/uL Normal 2.0-7.7 [facility] Comment on above: Performed By: #### L 100.0100, L300.3900, L500.3400, L500.2500 #### [facility] [address] [place], [address] Basophils/100 WBC (Bld) 0.5 % Normal 0-1 [facility] Comment on above: Performed By: #### L 100.0100, L300.3900, L500.3400, L500.2500 #### [facility] [address] [place], [address] Eosinophils/100 WBC (Bld) 2.8 % Normal 0-5 [facility] Comment on above: Performed By: #### L 100.0100, L300.3900, L500.3400, L500.2500 #### [facility] [address] [place], [address] Erythrocyte distribution width (RBC) [Ratio] 14.6 % Normal 11.6-14.6 [facility] Comment on above: Performed By: #### L 100.0100, L300.3900, L500.3400, L500.2500 #### [facility] [address] [place], [address] Hematocrit (Bld) [Volume fraction] 41.9 % Normal 37-47 [facility] Comment on above: Performed By: #### L 100.0100, L300.3900, L500.3400, L500.2500 #### [facility] [address] [place], [address] Hemoglobin (Bld) [Mass/Vol] 13.5 g/dL Normal 12.0-15.0 [facility] Comment on above: Performed By: #### L 100.0100, L300.3900, L500.3400, L500.2500 #### [facility] [address] [place], [address] IG% 0.700 Normal 0.0-0.9 [facility] Comment on above: Result Comment: IG% - Immature Granulocytes (promyelocytes, myelocytes and metamyelocytes) > 1% indicates that a LEFT SHIFT is Present. Performed By: #### L 100.0100, L300.3900, L500.3400, L500.2500 #### [facility] [address] [place], [address] Lymphocytes/100 WBC (Bld) 25.7 % Normal 19-41 [facility] Comment on above: Performed By: #### L 100.0100, L300.3900, L500.3400, L500.2500 #### [facility] [address] [place], [address] MCH (RBC) [Entitic mass] 28.2 pg Normal 27.0-32.0 [facility] Comment on above: Performed By: #### L 100.0100, L300.3900, L500.3400, L500.2500 #### [facility] [address] [place], [address] MCHC (RBC) [Mass/Vol] 32.2 g/dL Normal 32-36 [facility] Comment on above: Performed By: #### L 100.0100, L300.3900, L500.3400, L500.2500 #### [facility] [address] [place], [address] MCV (RBC) [Entitic vol] 87.7 fL Normal 81-99 [facility] Comment on above: Performed By: #### L 100.0100, L300.3900, L500.3400, L500.2500 #### [facility] [address] [place], [address] Monocytes/100 WBC (Bld) 9.7 % Normal 0-10 [facility] Comment on above: Performed By: #### L 100.0100, L300.3900, L500.3400, L500.2500 #### [facility] [address] [place], [address] Neutrophils/100 WBC (Bld) 60.6 % Normal 47-70 [facility] Comment on above: Performed By: #### L 100.0100, L300.3900, L500.3400, L500.2500 #### [facility] [address] [place], [address] Nucleated RBC (Bld) [#/Vol] 0 10*3/uL Normal 0-5 [facility] Comment on above: Performed By: #### L 100.0100, L300.3900, L500.3400, L500.2500 #### [facility] [address] [place], [address] Platelet mean volume (Bld) [Entitic vol] 10.4 fL Normal 6.2-12.0 [facility] Comment on above: Performed By: #### L 100.0100, L300.3900, L500.3400, L500.2500 #### [facility] [address] [place], [address] Platelets (Bld) [#/Vol] 359 10*3/uL Normal 150-450 [facility] Comment on above: Performed By: #### L 100.0100, L300.3900, L500.3400, L500.2500 #### [facility] [address] [place], [address] RBC (Bld) [#/Vol] 4.78 10*6/uL Normal 4.2-5.4 [facility] Comment on above: Performed By: #### L 100.0100, L300.3900, L500.3400, L500.2500 #### [facility] [address] [place], [address] RDW SD 47.4 fl High 35.1-43.9 [facility] Comment on above: Performed By: #### L 100.0100, L300.3900, L500.3400, L500.2500 #### [facility] [address] [place], [address] WBC (Bld) [#/Vol] 9.4 10*3/uL Normal 4.4-11.0 [facility] Comment on above: Performed By: #### L 100.0100, L300.3900, L500.3400, L500.2500 #### [facility] [address] [place], [address] Carbon dioxide measurementOr dered By: Lemuel Willett on 08-15-2024 CO2 [Moles/Vol] 32.0 mmol/L 21.0-32.0 [facility] Chloride measurementOrdered By: Lemuel Willett on 08-15-2024 Chloride [Moles/Vol] 101 mmol/L 98-107 [facility] Emergency Department Summary on 08-15-2024 Emergency Department Summary [facility] Medical Records Department [address] [place] [address] Emergency Department Summary 08/15/24 MR#: [id number] Acct: [id number] Name: MARIETTA TEMPLE Rep #: [id number] : 1945 79 From: Lemuel Willett DO PCP: Dr. Marika Park MD Status:REG ER Location: ED HPI History of Present Illness Chief Complaint: Palpitations Informant: patient and spouse/S.O. Narrative Narrative: Patient is an 79-year-old female with past medical history of hypothyroidism paroxysmal atrial fibrillation/flutter currently on Eliquis as well as hypertension and COPD. She states she takes Eliquis twice a day for her history of A-fib and has taken it as directed without missing doses. She also reports she is on metoprolol and has been taking that as directed as well. She states her life has been stressful recently as she has been in [place] secondary to her son having heart issues. Other than the increased rest she states she has been feeling normal without fevers chills increased cough congestion shortness of breath or dysuria. Patient states she was tired and went to bed last night and then awoke around 3:30 in the morning with her heart racing. 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 Symptomatic menopausal or female climacteric states Vaginal enterocele, congenital or acquired Postmenopausal atrophic vaginitis Rectocele Plantar fasciitis Pain in joint, shoulder region Nontoxic multinodular goiter Indeterminate pulmonary nodules Hemorrhage of gastrointestinal tract, unspecified Cystocele, midline Benign neoplasm of colon Colon polyp Dyspnea on exertion Chest pain, unspecified Essential hypertension Ventricular ectopy Premature atrial contraction Paroxysmal atrial flutter Vision problems Thyroid cancer Skin cancer Osteoarthritis IBS (irritable bowel syndrome) Cancer Arthritis Ataxia Home Medications ???Medication ???Instructions ???Recorded ???Last Taken ???Type conjugated estrogens 0.625 mg/gram 1 dose vaginal DAILY dryness 10/09/13 02/08/19 History vaginal cream magnesium oxide 200 mg PO DAILY 10/24/19 Unknown History multivitamin 1 cap PO DAILY 10/24/19 Unknown History apixaban 5 mg tablet (Eliquis) 5 mg PO BID #74 tabs 04/26/21 Unknown Rx metoprolol succinate 25 mg 25 mg PO DAILY #30 tabs 04/26/21 Unknown Rx tablet,extended release 24 hr losartan 50 mg tablet 50 mg PO DAILY 07/16/21 Unknown History triamterene 37.5 1 tab PO DAILY 07/16/21 Unknown History mg-hydrochlorothiazi de 25 mg tablet cholecalciferol (vitamin D3) 50 50 mcg PO DAILY 01/07/23 Unknown History mcg (2,000 unit) tablet coenzyme Q10 10 mg capsule 10 mg PO ONCE 01/07/23 Unknown History levothyroxine 112 mcg tablet 112 mcg PO DAILY 01/07/23 Unknown History spacer #1 ea 02/22/23 Unknown Rx spacer #1 ea 03/21/23 Unknown Rx fluticasone propionate 230 2 inh inhalation BID #3 ea 07/05/23 Unknown Rx mcg-salmeterol 21 mcg/actuation HFA inhaler (Advair HFA) montelukast 10 mg tablet 10 mg PO QPM #30 tabs 12/27/23 Unknown Rx lactobacillus combination no.4 3 3,000 mmu cells PO DAILY supplement 08/15/24 Unknown History billion cell capsule (Probiotic) metoprolol succinate 50 mg 50 mg PO DAILY 30 days #30 tabs 08/15/24 Unknown Rx tablet,extended release 24 hr Allergy/AdvReac Type Severity Reaction Status Date / Time Sulfa (Sulfonamide Allergy Rash Verified 08/15/24 05:02 Antibiotics) codeine AdvReac Nausea Verified 01/15/25 05:02 Family History Father , 1977 Alcoholism Emphysema of lung Sister , 2016 ANGINA Cancer Diabetes CVA (cerebral vascular accident) Thyroid disorder Uterine cancer Brother Cancer Diabetes Mother Diabetes Myocardial infarction Heart disease 1964-59 YEARS Hypertension Surgical History History of cholecystectomy History of thyroidectomy Hx of breast reduction, elective History of bilateral knee replacement Social History Smoking Status: Former smoker alcohol intake: never substance use type: does not use caffeine: Yes Type: coffee Number of servings: 4 ROS ROS ED Constitutional Constitutional ED: Denies chills or fever(s) Eyes Eyes: Denies blurry vision or change in vision ENT ENT ED: Denies sore throat Cardiovascular Cardiovascular: Reports palpitati (more content not included)... Normal [facility] Eosinophil percentageOrdered By: Lemuel Willett on 08-15-2024 Eosinophils/100 WBC (Bld) 2.8 % 0-5 [facility] Erythrocyte distribution wid th (RBC) [Ratio]Ordered By: Lemuel Willett on 08-15-2024 Erythrocyte distribution width (RBC) [Entitic vol] 47.4 fL High 35.1-43.9 [facility] Erythrocyte distribution wid th ratioOrdered By: Lemuel Willett on 08-15-2024 Erythrocyte distribution width (RBC) [Ratio] 14.6 % 11.6-14.6 [facility] Estimated glomerular filtrat ion rate (GFR) AmericanOrdered By: Lemuel Willett on 08-15-2024 Estimated GFR (MDRD) Amer 80 mL/min >60 [facility] Comment on above: GFR Calc Estimation of creatinine ness aranceOrdered By: Lemuel Willett on 08-15-2024 Estimated Creatinine Clearance Calc 53.50 ml/min [facility] Glomerular filtration rate ( GFR) estimationOrdered By: Lemuel Willett on 08-15-2024 Estimated GFR (MDRD) Non-Af Amer 66 mL/min >60 [facility] Comment on above: Non- GFR Calc Glucose measurementOrdered B y: Lemuel Willett on 08-15-2024 Glucose [Mass/Vol] 131 mg/dL High 74-106 [facility] Comment on above: Fasting Glucose resu lt greater than or equal to 126 mg/dL suggests DIABETES MELLITUS per A.D.A. criteria. Hematocrit Auto (Bld) [Volum e fraction]Ordered By: Lemuel Willett on 08-15-2024 Hematocrit (Bld) [Volume fraction] 41.9 % 37-47 [facility] Hemoglobin measurementOrdere d By: Lemuel Willett on 08-15-2024 Hemoglobin (Bld) [Mass/Vol] 13.5 g/dL 12.0-15.0 [facility] Immature granulocytes/100 WB C Auto (Bld)Ordered By: Lemuel Willett on 08-15-2024 Immature granulocytes/100 WBC (Bld) 0.700 % 0.0-0.9 [facility] Comment on above: IG% - Immature Granu locytes (promyelocytes, myelocytes and metamyelocytes) > 1% indicates that a LEFT SHIFT is Present. Lymphocytes Auto (Unsp spec) [#/Vol]Ordered By: Lemuel Willett on 08-15-2024 Lymphocytes (Bld) [#/Vol] 2.43 10*3/uL 0.83-4.51 [facility] Lymphocytes/100 WBC Auto (Un sp spec)Ordered By: Lemuel Willett on 08-15-2024 Lymphocytes/100 WBC (Bld) 25.7 % 19-41 [facility] MCV (mean corpuscular volume ) determinationOrdered By: Lemuel Willett on 08-15-2024 MCV (RBC) [Entitic vol] 87.7 fL 81-99 [facility] Magnesiumon 08-15-2024 Magnesium [Mass/Vol] 2.0 mg/dL Normal 1.6-2.6 [facility] Comment on above: Performed By: #### L 100.0100, L300.3900, L500.3400, L500.2500 #### [facility] [address] [place], [address] Magnesium measurementOrdered By: Lemuel Willett on 08-15-2024 Magnesium [Mass/Vol] 2.0 mg/dL 1.6-2.6 [facility] Mean corpuscular hemoglobin (MCH) determinationOrdered By: Lemuel Willett on 08-15-2024 MCH (RBC) [Entitic mass] 28.2 pg 27.0-32.0 [facility] Mean corpuscular hemoglobin concentration (MCHC) determinationOrdered By: Lemuel Willett on 08-15-2024 MCHC (RBC) [Mass/Vol] 32.2 g/dL 32-36 [facility] Mean platelet volume determi nationOrdered By: Lemuel Willett on 08-15-2024 Platelet mean volume (Bld) [Entitic vol] 10.4 fL 6.2-12.0 [facility] Monocyte percentageOrdered B y: Lemuel Willett on 08-15-2024 Monocytes/100 WBC (Bld) 9.7 % 0-10 [facility] Neutrophil percentageOrdered By: Lemuel Willett on 08-15-2024 Neutrophils/100 WBC (Bld) 60.6 % 47-70 [facility] Nucleated red blood cell per centageOrdered By: Lemuel Willett on 08-15-2024 Nucleated RBC/100 WBC (Bld) [Ratio] 0 % 0-5 [facility] Platelet countOrdered By: Adriane Willett on 08-15-2024 Platelets (Bld) [#/Vol] 359 10*3/uL 150-450 [facility] Potassium measurementOrdered By: Lemuel Willett on 08-15-2024 Potassium [Moles/Vol] 3.2 mmol/L Low 3.5-5.1 [facility] RBC Auto (Bld) [#/Vol]Ordere d By: Lemuel Willett on 08-15-2024 RBC (Bld) [#/Vol] 4.78 10*6/uL 4.2-5.4 [facility] Serum anion gap measurementO rdered By: Lemuel Willett on 08-15-2024 Anion gap [Moles/Vol] 2 mmol/L Low 5-15 [facility] Serum or plasma calcium elke urement (mass/volume)Ordered By: Lemuel Willett on 08-15-2024 Calcium [Mass/Vol] 9.8 mg/dL 8.5-10.1 [facility] Serum or plasma creatinine m easurement (mass/volume)Ordered By: Lemuel Willett on 08-15-2024 Creatinine [Mass/Vol] 0.88 mg/dL 0.55-1.02 [facility] Comment on above: The validity of the calculated GFR & GFRAA in patients over 70 years has not been determined. Clinical correlation is essential. Serum or plasma urea nitroge n measurement (mass/volume)Ordered By: Lemuel Willett on 08-15-2024 Urea nitrogen [Mass/Vol] 16 mg/dL 7-18 [facility] Sodium levelOrdered By: Edgar Willett on 08-15-2024 Sodium [Moles/Vol] 135 mmol/L Low 136-145 [facility] TSH QnOrdered By: Geremias on 08-15-2024 Thyroid Stimulating Hormone (TSH) 4.640 uIU/mL High 0.358-3.740 [facility] Thyroid Stim Hormone (TSH)on 08-15-2024 TSH 4.640 uIU/mL High 0.358-3.740 [facility] Comment on above: Performed By: #### L 100.0100, L300.3900, L500.3400, L500.2500 #### [facility] [address] [place], [place], [id number] White blood cell (WBC) count Ordered By: Lemuel Willett on 08-15-2024 WBC (Bld) [#/Vol] 9.4 10*3/uL 4.4-11.0 [facility] Basic metabolic 2000 panelon 06-16-2024 Anion gap [Moles/Vol] 12 mmol/L Normal 8-15 [facility] Comment on above: Order Comment: Speci men Type: BLOOD SPECIMENOrdering Facility: [facility] Address: [address] [place] [address] Performed By: #### 2 4321-2 ####[facility] LABCLIA [id number] [facility] [place] [address] [place] Calcium [Mass/Vol] 9.7 mg/dL Normal 8.5-10.2 [facility] Comment on above: Order Comment: Speci men Type: BLOOD SPECIMENOrdering Facility: [facility] Address: [address] [place] [address] Performed By: #### 2 4321-2 ####[facility] LABCLIA [id number] [place] [address] [place] Chloride [Moles/Vol] 102 mmol/L Normal 98-107 [facility] Comment on above: Order Comment: Speci men Type: BLOOD SPECIMENOrdering Facility: [facility] Address: [address] [place] [address] Performed By: #### 2 4321-2 ####[facility] LABCLIA [id number] [place] [address] [place] CO2 [Moles/Vol] 25 mmol/L Normal 22-30 [facility] Comment on above: Order Comment: Speci men Type: BLOOD SPECIMENOrdering Facility: [facility] Address: [address] [place] [address] Performed By: #### 2 4321-2 ####[facility] LABCLIA [id number] [place] [address] [place] Creatinine [Mass/Vol] 0.74 mg/dL Normal 0.58-0.96 [facility] Comment on above: Order Comment: Speci men Type: BLOOD SPECIMENOrdering Facility: [facility] Address: [address] [place] [address] Performed By: #### 2 4321-2 ####[facility] LABCLIA [id number] [place] [address] [place] Creatinine and Glomerular filtration rate.predicted panel (S/P/Bld) 82 mL/min/1.73m??? Normal >=60 [facility] Comment on above: Order Comment: Speci men Type: BLOOD SPECIMENOrdering Facility: [facility] Address: [address] [place] [address] Result Comment: Cristy mated Glomerular Filtration Rate (eGFR) is calculated using the 2020 CKD-EPI creatinine equation. This equation utilizes serum creatinine, sex, and age as parameters. The creatinine assay has traceable calibration to isotope dilution-mass spectrometry. Refer to KDIGO guidelines for clinical interpretation. In patients with unstable renal function, e.g. those with acute kidney injury, the eGFR may not accurately reflect actual GFR. Performed By: #### 2 4321-2 ####[facility] LABCLIA [id number] [place] [address] [place] Glucose [Mass/Vol] 78 mg/dL Normal 74-99 [facility] Comment on above: Order Comment: Raoul owen Type: BLOOD SPECIMENOrdering Facility: [facility] Address: [address] [place] [address] Result Comment: The [place] Diabetes Association (ADA) provides guidance for cutoff values for fasting glucose and random glucose. The ADA defines fasting as no caloric intake for at least 8 hours. Fasting plasma glucose results between 100 to 125 mg/dL indicate increased risk for diabetes (prediabetes). Fasting plasma glucose results greater than or equal to 126 mg/dL meet the criteria for diagnosis of diabetes. In the absence of unequivocal hyperglycemia, results should be confirmed by repeat testing. In a patient with classic symptoms of hyperglycemia or hyperglycemic crisis, random plasma glucose results greater than or equal to 200 mg/dL meet the criteria for diagnosis of diabetes. Reference: Standards of Medical Care in Diabetes 2016, [place] [employer] Association. Diabetes Care. 2016.39(Suppl 1). Performed By: #### 2 4321-2 ####[facility] LABIA [id number] [place] [id number] [place] Potassium [Moles/Vol] 4.6 mmol/L Normal 3.7-5.1 [facility] Comment on above: Order Comment: Raoul owen Type: BLOOD SPECIMENOrdering Facility: [facility] Address: [address] [place] [address] Performed By: #### 2 4321-2 ####[facility] LABIA [id number] [place] [address] [place] Sodium [Moles/Vol] 139 mmol/L Normal 136-144 [facility] Comment on above: Order Comment: Speci men Type: BLOOD SPECIMENOrdering Facility: [facility] Address: [address] [place] [address] Performed By: #### 2 4321-2 ####[facility] LABCLIA [id number] [place] [address] [place] Urea nitrogen [Mass/Vol] 14 mg/dL Normal 7-21 [facility] Comment on above: Order Comment: Speci men Type: BLOOD SPECIMENOrdering Facility: [facility] Address: [address] [place] [address] Performed By: #### 2 4321-2 ####[facility] LABCLIA [id number] [address] [place] CNOVon 05-04-2024 CNOV Office Visit (INTMWS) MARIETTA TEMPLE ([id number]) 1945 F Date Time Provider Department 05/04/24 10:40 AM MINDY EMERSON INTMWS During your visit today, we recorded the following information about you: Pulse Blood pressure Weight 67/minute 140/78 84.9 kg Mindy Emerson APRN.SENIOR RECRUITMENT CONSULTANT 05/04/2024 11:46 AM Signed SUBJECTIVE Marietta Temple is a 79 year old female here today for a check up on her medical problems. Chief Complaint Patient presents with: Recheck: blood pressure MANI Philip is a 79 year old female who presents for follow-up for hypertension. They are here today for a recheck of blood pressure. Blood pressure appears to be stable but still slightly elevated. Denies any symptoms referable to elevated blood pressure. Specifically denies headache, chest pain, palpitations, dyspnea and peripheral edema. Tolerating medications well. Her medications were reviewed today and her list is now up to date. Medications Current Outpatient Medications Medication Sig losartan (COZAAR) 100 mg tablet Take 1 tablet by mouth once daily. DOSE CHANGE, take one daily conjugated estrogens (PREMARIN) vaginal cream Use small amount at vaginal opening twice a week apixaban (ELIQUIS) 5 mg tab(s) Take 1 tablet by mouth two times a day. levothyroxine (SYNTHROID) 112 mcg tablet Take 1 tablet by mouth once daily. Take on empty stomach. For thyroid metoprolol succinate ER (TOPROL XL) 25 mg 24 hr tablet Take 1 tablet by mouth once daily. meclizine (ANTIVERT) 25 mg tab Take 1 tablet by mouth three times daily. (Patient taking differently: Take 25 mg by mouth as needed.) Multivitamin capsule Take 1 capsule by mouth once daily. magnesium oxide 200 mg magnesium tab Take 1 tablet by mouth once daily. cholecalciferol (VITAMIN D3) 50 mcg (2,000 unit) tablet Take 2,000 Units by mouth once daily. coenzyme Q10 (COENZYME Q-10) 100 mg cap capsule Take 100 mg by mouth once daily. triamterene-hydroCHL OROthiazide (MAXZIDE-25) 37.5-25 mg per tablet Take 1 tab on every other day and the other days take 2 tabs No current facility-administere d medications for this visit. ALLERGIES Allergen Reactions Codeine GI Upset Other reaction(s): Nausea Sulfa (Sulfonamide * Rash UNSURE OF REACTION ACTIVE PROBLEM LIST Atrial Flutter By Electrocardiogram ([facility]) - 05/05/2021 Vertigo - 05/05/2021 Heart Palpitations - 10/21/2019 Chronic Right-Sided Low Back Pain Without Sciatica - 10/21/2019 History of Thyroid Cancer - 10/21/2019 Meningioma ([facility]) - 03/02/2019 Comment: Needs follow-up imaging in 12 months High Serum Thyroglobulin - 12/20/2018 Hypothyroidism, Postsurgical Indeterminate Pulmonary Nodules - 12/18/2012 Comment: CT stable 2009 through 10/2012. TO Cystocele, Midline - 11/03/2011 Rectocele - 03/03/2009 Vaginal Enterocele, Congenital Or Acquired - 03/03/2009 Dysmetabolic Syndrome X - 08/24/2007 Essential Hypertension Thyroid cancer - 07/16/2005 Comment: * Surgery (): total thyroidectomy (Dr. Guerrier) * Pathology (): Right lobe papillary CA 0.6cm, partially involving perithyroidal connective tissue. 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 Focal vascular and capsular invasion present. (): right neck node FNA (3.1cm sag x 0.8cm deep x 1.0cm transverse nodule high right neck in jugular groove), path=reactive lymph node * QUILES (): 100 mCi 131-Iodine given, TSH=54.79 (): 201 mCi 131-Iodine Rx, TSH=67.5 * Thyroglobulin (): PY=0665.0 ng/ml (Ab neg), prior to thyroidectomy (): TG=33.9, Ab neg, TSH=54.79 (): TG=0.7 ng/ml, Ab neg, unstim (): TG=1.0 ng/ml, Ab neg, unstim (): TG=10.7 ng/ml, Ab neg, Thyrogen stim (): TG=8.3 ng/ml, Ab neg, off T4 (TSH=16.7) (): TG=10.6 ng/ml, Ab neg, off T4 (TSH=67.5) (): TG=1.3 ng/ml, Ab neg (): TG=0.9 ng/ml, Ab neg (): TG=0.9 ng/ml, Ab neg (): TG Social History Tobacco Use Smoking status: Former Current packs/day: 0.00 Average packs/day: 1 pack/day for 30.0 years (30.0 ttl pk-yrs) Types: Cigarettes Start date: 09/29/1969 Quit date: 09/30/1999 Years since quittin.6 Smokeless tobacco: Never Vaping Use Vaping status: Never Used Substance Use Topics Alcohol use: Yes Comment: Rarely 1 per month Drug use: No Review of Systems Respiratory: Negative. Cardiovascular: Negative. OBJECTIVE BP 140/78 Pulse 67 Wt 187 lb 2.7 oz (84.9kg) SpO2 98% Physical Exam Vitals and nursing note reviewed. Constitutional: General: She is awake. She is not in acute distress. Appearance: Normal appearance. She is well-developed and well-groomed. She is not ill-appearing, toxic-appearing or diaphoretic. HENT: Head: Normocephalic. Right Ear: External ear normal. Left Ear: External ear normal. N (more content not included)... Normal [facility] Thyroglobulin and Thyrogobul in Ab panelon 03-26-2024 Interpretation and review of laboratory results Normal [facility] Thyroglobulin Ab Qn [facility] Comment on above: The Thyroglobulin An tibody test was performed using the Isoterael DXI paramagnetic particle chemiluminescent immunoassay method. Results obtained with different assay methods or kits cannot be used interchangeably. Thyroglobulin, Serum 2.9 ng/mL 1.6 - 5 0.0 ng/mL [facility] Comment on above: The Thyroglobulin te st was performed using the Isoterael DXI paramagnetic particle chemiluminescent immunoassay method. Results obtained with different assay methods or kits cannot be used interchangeably. [facility] Comprehensive metabolic 2000 panelon 03-24-2024 Albumin [Mass/Vol] 4.3 g/dL 3.9 - 4.9 g/dL [facility] ALP [Catalytic activity/Vol] 89 U/L 34 - 123 U/L [facility] ALT [Catalytic activity/Vol] 29 U/L 7 - 38 U/L [facility] Anion gap [Moles/Vol] 11 mmol/L 8 - 15 mmol/L [facility] AST [Catalytic activity/Vol] 31 U/L 13 - 35 U/L [facility] Bilirubin [Mass/Vol] 0.3 mg/dL 0.2 - 1 .3 mg/dL [facility] Calcium [Mass/Vol] 10.0 mg/dL 8.5 - 10. 2 mg/dL [facility] Chloride [Moles/Vol] 98 mmol/L 98 - 10 7 mmol/L [facility] CO2 [Moles/Vol] 29 mmol/L 22 - 30 mmol/L [facility] Creatinine [Mass/Vol] 0.65 mg/dL 0.58 - 0.96 mg/dL [facility] GFR/1.73 sq M.predicted among non-blacks MDRD (S/P/Bld) [Vol rate/Area] 89 mL/min/{1.73_m2} - PINF [facility] Comment on above: Estimated Glomerular Filtration Rate (eGFR) is calculated using the 2020 CKD-EPI creatinine equation. This equation utilizes serum creatinine, sex, and age as parameters. The creatinine assay has traceable calibration to isotope dilution-mass spectrometry. Refer to KDIGO guidelines for clinical interpretation. In patients with unstable renal function, e.g. those with acute kidney injury, the eGFR may not accurately reflect actual GFR. Glucose [Mass/Vol] 81 mg/dL 74 - 99 mg/dL [facility] Comment on above: The [place] Diabete s Association (ADA) provides guidance for cutoff values for fasting glucose and random glucose. The ADA defines fasting as no caloric intake for at least 8 hours. Fasting plasma glucose results between 100 to 125 mg/dL indicate increased risk for diabetes (prediabetes). Fasting plasma glucose results greater than or equal to 126 mg/dL meet the criteria for diagnosis of diabetes. In the absence of unequivocal hyperglycemia, results should be confirmed by repeat testing. In a patient with classic symptoms of hyperglycemia or hyperglycemic crisis, random plasma glucose results greater than or equal to 200 mg/dL meet the criteria for diagnosis of diabetes. Reference: Standards of Medical Care in Diabetes 2016, [place] Diabetes Association. Diabetes Care. 2016.39(Suppl 1). Interpretation and review of laboratory results Normal [facility] Potassium [Moles/Vol] 4.1 mmol/L 3.7 - 5.1 mmol/L [facility] Protein [Mass/Vol] 7.1 g/dL 6.3 - 8.0 g/dL [facility] Sodium [Moles/Vol] 138 mmol/L 136 - 144 mmol/L [facility] Urea nitrogen [Mass/Vol] 12 mg/dL 7 - 21 mg/dL [facility] Lipid 1996 panelon 4 Cholesterol [Mass/Vol] 209 mg/dL High NINF - 200 mg/dL [facility] Comment on above: <200 mg/dL, Desirabl e 200-239 mg/dL, Borderline high >239 mg/dL, High Cholesterol in HDL [Mass/Vol] 62 mg/dL 39 - PINF mg/dL [facility] Comment on above: 40-59 mg/dL, Accepta ble >59 mg/dL, High: Negative risk factor for coronary heart disease <40 mg/dL, Low: Positive risk factor for coronary heart disease Cholesterol in LDL [Mass/Vol] 129 mg/dL High NINF - 100 mg/dL [facility] Comment on above: <100 mg/dL, Optimal 100-129 mg/dL, Near optimal/above optimal 130-159 mg/dL, Borderline high 160-189 mg/dL, High >189 mg/dL, Very high Secondary prevention optimal LDL Cholesterol levels are recommended to be < 70 mg/dL Cholesterol in LDL/Cholesterol in HDL [Mass ratio] 2.08 {ratio} NINF - 2.54 [facility] Comment on above: Reference: 1. National Cholesterol Education Program ATP III Guideline At-A-Glance Quick Desk Reference: National Heart, Lung, and Blood [place]. National Institutes of Health. 2001: NIH Publication No. 01-3305. 2. An International Atherosclerosis Society position paper: global recommendations for the management of dyslipidemia: executive summary, Atherosclerosis. 2014: 232(2):410-413. Cholesterol in VLDL [Mass/Vol] 18 mg/dL NINF - 30 mg/dL [facility] Cholesterol non HDL [Mass/Vol] 147 mg/dL High NINF - 130 mg/dL [facility] Comment on above: <130 mg/dL, Optimal 130-159 mg/dL, Near optimal/above optimal 160-189 mg/dL, Borderline high 190-219 mg/dL, High >219 mg/dL, Very high Secondary prevention optimal non HDL Cholesterol levels are recommended to be <100 mg/dL Cholesterol.total/Shani sterol in HDL [Mass ratio] 3.37 {ratio} NINF - 5.10 [facility] Fasting Time 12 hrs [facility] Interpretation and review of laboratory results Abnormal [facility] Triglyceride [Mass/Vol] 89 mg/dL NINF - 150 mg/dL [facility] Comment on above: <150 mg/dL, Normal 150-199 mg/dL, Borderline high 200-499 mg/dL, High >499 mg/dL, Very high MAGNESIUMon 03-24-2024 Magnesium [Mass/Vol] 2.1 mg/dL 1.7 - 2 .3 mg/dL [facility] Magnesium [Mass/Vol]on 03-24 Interpretation and review of laboratory results Normal [facility] No Panel Informationon 03-24 Interpretation and review of laboratory results Normal [facility] T3, FREEon 03-24-2024 Free T3 [Mass/Vol] 2.4 pg/mL 2.3 - 4.1 pg/mL [facility] T4 FREE/FREE THYROXINEon Free T4 [Mass/Vol] 1.5 ng/dL 0.9 - 1.7 ng/dL [facility] THYROID STIMULATING HORMONEo n 03-24-2024 TSH Qn 4.080 m[IU]/L [facility] TSH Qnon 03-24-2024 Interpretation and review of laboratory results Normal [facility] 25-hydroxyvitamin D3 [Mass/V ol]on 03-23-2024 Interpretation and review of laboratory results Abnormal [facility] CBC panel Auto (Bld)on 03-23 Erythrocyte distribution width (RBC) [Ratio] 15.2 % High 11.5 - 15.0 % [facility] Hematocrit (Bld) [Volume fraction] 42.7 % 36.0 - 46.0 % [facility] Hemoglobin (Bld) [Mass/Vol] 13.3 g/dL 11.5 - 15.5 g/dL [facility] Interpretation and review of laboratory results Abnormal [facility] MCH (RBC) [Entitic mass] 27.5 pg 26.0 - 34.0 pg [facility] MCHC (RBC) [Mass/Vol] 31.1 g/dL 30.5 - 36.0 g/dL [facility] MCV (RBC) [Entitic vol] 88.2 fL 80.0 - 100.0 fL [facility] Nucleated RBC (Bld) [#/Vol] NINF [facility] Platelet mean volume (Bld) [Entitic vol] 10.9 fL 9.0 - 12.7 fL [facility] Platelets (Bld) [#/Vol] 314 10*3/uL [facility] RBC (Bld) [#/Vol] 4.84 10*6/uL 3.90 - 5.2 0 m/uL [facility] WBC (Bld) [#/Vol] 7.49 10*3/uL [facility] VITAMIN D 25 HYDROXYon 03-23 25-hydroxyvitamin D3 [Mass/Vol] 129.0 ng/mL High 31.0 - 80.0 ng/mL [facility] US Lower extremity veinon Non-Invasive Vascular Laboratory [facility] Lower Extremity Venous Duplex Unilateral - Left Date of service/time: 11/18/2023 3:12:55 PM Name: MRS. MARIETTA TEMPLE Date of : 1945 Age: 78 years Gender: F Clinical Indication Lower extremity swelling. Left TECHNIQUE -------- A venous duplex ultrasound examination was performed, including grayscale imaging with compression maneuvers and color Doppler and spectral Doppler examination with augmentation maneuvers and response to respiration of the below mentioned veins. FINDINGS -------- RIGHT SIDE Common femoral vein Doppler: normal flow. LEFT SIDE Distal external iliac vein Doppler: normal flow. Compression: normal. Common femoral vein Doppler: normal flow. Compression: normal. Femoral vein Doppler: normal flow. Compression: normal. Popliteal vein Doppler: normal flow. Compression: normal. Posterior tibial veins Compression: normal. Peroneal veins Compression: normal. Great saphenous vein Compression: normal. Small saphenous vein Compression: normal. IMPRESSION RIGHT SIDE - DEEP VEINS Spontaneous and respirophasic flow noted in the common femoral vein. LEFT SIDE - DEEP VEINS Negative for acute deep vein thrombosis. LEFT SIDE - SUPERFICIAL VEINS Negative for superficial thrombophlebitis in the great saphenous vein and small saphenous vein. Technologist: Osiris Arguello RVT, RDMS Ordering physician: GUILLERMO ALCANTARA Interpreting physician: ALEJANDRO Johnston DO Final See Link below for Image [facility] SURGICAL PATHOLOGYon 023 Case Report Surgical Pathology Report Case: [id number] Authorizing Provider: Juna Jose Toussaint MD Collected: 11/02/2022 12:13 PM Ordering Location: Ambulatory Surgery Received: 11/02/2022 02:18 PM Pathologist: Saul Cook MD Specimens: A) - TRANSVERSE COLON POLYP B) - TRANSVERSE COLON POLYP, Distal transverse C) - SIGMOID COLON BIOPSY, Sigmoid colon bx verse polyp [facility] Diagnosis Comment C. Multiple additional deeper sections were examined. [facility] FINAL DIAGNOSIS A. Colon, transverse polyp, biopsy: -Fragments of tubular adenoma. B. Colon, distal transverse polyp, biopsy: -Fragments of tubular adenoma. C. Colon, sigmoid polyp, biopsy: -Hyperplastic polyp, see comment. [facility] Gross Description A. TRANSVERSE COLON POLYP Received in formalin are multiple pieces of chaudhari-brown, soft tissue aggregating to 1.8 x 0.3 x 0.2 cm. Totally submitted in one cassette. B. TRANSVERSE COLON POLYP Received in formalin are multiple pieces of chaudhari-brown, soft tissue aggregating to 1.5 x 0.3 x 0.2 cm. Totally submitted in one cassette. C. SIGMOID COLON BIOPSY Received in formalin is one piece of chaudhari-brown, soft tissue measuring 0.4 x 0.3 x 0.2 cm. Totally submitted in one cassette. KK November 03, 2022 2:49 AM Gross examination performed at [facility], [facility] Performing Lab Diagnostic interpretation performed at [facility], [address] [id number] Hospice Liaison: Ghanshyam Rey M.D. [facility] COLONOSCOPY SCREENINGon 04-0 [facility] XR CHEST 2V FRONTAL/LATon [facility] XR Chest PA and Lateralon IMPRESSION: No acute radiographic abnormality. Verifier Operator: [facility] Transcribe Date/Time: Oct 25 2022 12:39P Dictated by : TAVON FREEDMAN MD This examination was interpreted and the report reviewed and electronically signed by: TAVON FREEDMAN MD on Oct 25 2022 12:41PM [facility] DIVISION OF RADIOLOGY * * *Final Report* * * DATE OF EXAM: Oct 25 2022 12:14PM WOX [id number] - XR CHEST 2V FRONTAL/LAT / PROCEDURE REASON: multiple diagnoses * * * * Physician Interpretation * * * * EXAMINATION: CHEST RADIOGRAPH (2 VIEW FRONTAL & LATERAL) CLINICAL HISTORY: Acute cough Wheezing MQ: XC2_6 EXAM DATE/TIME: 10/25/2022 12:14 PM COMPARISON: Chest x-ray on 10/08/2014 RESULT: Lines, tubes, and devices: None. Lungs and pleura: No consolidation. No lung mass. No pleural effusion. No pneumothorax. Cardiomediastinal silhouette: Stable cardiomediastinal silhouette. Bones and soft tissues: There are degenerative changes in the spine and shoulders. DIVISION OF RADIOLOGY Provider, [facility] [place] - 10/25/2022 * * *Final Report* * * DATE OF EXAM: Oct 25 2022 12:14PM WOX 5291 - XR CHEST 2V FRONTAL/LAT / PROCEDURE REASON: multiple diagnoses * * * * Physician Interpretation * * * * EXAMINATION: CHEST RADIOGRAPH (2 VIEW FRONTAL & LATERAL) CLINICAL HISTORY: Acute cough Wheezing MQ: XC2_6 EXAM DATE/TIME: 10/25/2022 12:14 PM COMPARISON: Chest x-ray on 10/08/2014 RESULT: Lines, tubes, and devices: None. Lungs and pleura: No consolidation. No lung mass. No pleural effusion. No pneumothorax. Cardiomediastinal silhouette: Stable cardiomediastinal silhouette. Bones and soft tissues: There are degenerative changes in the spine and shoulders. IMPRESSION IMPRESSION: No acute radiographic abnormality. Verifier Operator: CONSUELO Transcribe Date/Time: Oct 25 2022 12:39P Dictated by : TAVON FREEDMAN MD This examination was interpreted and the report reviewed and electronically signed by: TAVON FREEDMAN MD on Oct 25 2022 12:41PM [facility] Radiology Study observation (narrative) Liang galvan [facility] XR Chest PA and LateralOrder ed By: Cc Provider on 10-25-2022 [facility] .Auto Diffon 11-08-2018 Ammonia mass conc (P) 1.30 10 3/mcL High 0.15-1.00 [facility] ([place]) Comment on above: Performed By: #### C BC, ADIFF, ANEU #### [address] [address] #### BMP, GFR #### [address] [address] Basophils #/vol (Bld) 0.00 10 3/mcL Normal 0.00-0.19 [facility] ([place]) Comment on above: Performed By: #### C BC, HALEIGHIFF, ANEU #### [address] [address] #### BMP, GFR #### [address] [address] Basophils/100 WBC (Bld) 0.2 % Normal 0.0-2.5 A [facility] ([place]) Comment on above: Performed By: #### C BC, ADIFF, ANEU #### [address] [address] #### BMP, GFR #### [address] [address] Eosinophils #/vol (Bld) 0.00 10 3/mcL Normal 0.00-0.40 [facility] ([place]) Comment on above: Performed By: #### MARLY GRANADOS, ANEU #### [place] [address] #### BMP, GFR #### [address] [address] Eosinophils/100 WBC (Bld) 0.0 % Normal 0.0-7.0 [facility] ([place]) Comment on above: Performed By: #### C BARON ADIFF, ANEU #### [address] [address] #### BMP, GFR #### [address] [address] Lymphocytes #/vol (Bld) 1.40 10 3/mcL Normal 0.77-3.85 [facility] ([place]) Comment on above: Performed By: #### C BC, ADIFF, ANEU #### [place] [address] #### BMP, GFR #### [address] [address] Lymphocytes/100 WBC (Bld) 8.5 % Low 10.0-50.0 [facility] ([place]) Comment on above: Performed By: #### C BC, ADIFF, ANEU #### [address] [address] #### BMP, GFR #### [address] [address] Monocytes/100 WBC (Bld) 7.6 % Normal 1.7-13.0 A [facility] ([place]) Comment on above: Performed By: #### C BC, ADIFF, ANEU #### [address] [address] #### BMP, GFR #### [address] [address] Neutrophils/100 WBC (Bld) 83.7 % High 37.0-80.0 [facility] ([place]) Comment on above: Performed By: #### C BC, ADIFF, ANEU #### [address] [address] #### BMP, GFR #### [address] [address] .GFRon 11-08-2018 GFR Non- 71 ml/min/1.73sqm Normal [facility] ([place]) Comment on above: Result Comment: GFR Population mean for , Non- Americans Ages 20-29 = 116 mL/min/1.73 sq.m. Ages 30-39 = 107 mL/min/1.73 sq.m. Ages 40-49 = 99 mL/min/1.73 sq.m. Ages 50-59 = 93 mL/min/1.73 sq.m. Ages 60-69 = 85 mL/min/1.73 sq.m. Ages 70+ = 75 mL/min/1.73 sq.m. Chronic Kidney Disease: Less than 60 mL/min/1.73 square meters End Stage Renal Disease: Less than 15 mL/min/1.73 square meters Performed By: #### B MP, GFR #### [address] [address] #### CBC, ADIFF, ANEU #### [address] [address] GFR 86 ml/min/1.73sqm Normal [facility] ([place]) Comment on above: Result Comment: GFR Population mean for , Non- Americans Ages 20-29 = 116 mL/min/1.73 sq.m. Ages 30-39 = 107 mL/min/1.73 sq.m. Ages 40-49 = 99 mL/min/1.73 sq.m. Ages 50-59 = 93 mL/min/1.73 sq.m. Ages 60-69 = 85 mL/min/1.73 sq.m. Ages 70+ = 75 mL/min/1.73 sq.m. Chronic Kidney Disease: Less than 60 mL/min/1.73 square meters End Stage Renal Disease: Less than 15 mL/min/1.73 square meters Performed By: #### B MP, GFR #### [place] [address] #### CBC, ADIFF, ANEU #### [address] [address] .NEUABSon 11-08-2018 Neutrophils #/vol (Bld) 13.70 10 3/mcL High 2.85-6.1 6 [facility] ([place]) Comment on above: Performed By: #### C BC, ADIFF, ANEU #### [place] [address] #### BMP, GFR #### [place] [address] BMPon 11-08-2018 Calcium mass conc 8.8 mg/dL Normal 8.4-10.2 [facility] ([place]) Comment on above: Performed By: #### B MP, GFR #### [place] [address] #### CBC, ADIFF, ANEU #### [address] [address] Chloride molar conc 103 mmol/L Normal 98-107 [facility] ([place]) Comment on above: Performed By: #### B MP, GFR #### [place] [address] #### CBC, ADIFF, ANEU #### [address] [address] CO2 molar conc 25 mmol/L Normal 23-31 [facility] ([place]) Comment on above: Performed By: #### B MP, GFR #### [place] [address] #### CBC, ADIFF, ANEU #### [address] [address] Creatinine mass conc 0.79 mg/dL Normal 0.55-1.02 [facility] ([place]) Comment on above: Performed By: #### B MP, GFR #### [place] [address] #### CBC, ADIFF, ANEU #### [address] [address] Electrolyte Balance 13.0 mEq/L Normal [facility] ([place]) Comment on above: Performed By: #### B MP, GFR #### [place] [address] #### CBC, ADIFF, ANEU #### [address] [address] Glucose mass conc 148 mg/dL High 83-110 [facility] ([place]) Comment on above: Performed By: #### B MP, GFR #### [place] [address] #### CBC, ADIFF, ANEU #### [address] [address] Potassium molar conc 4.1 mmol/L Normal 3.5-5.1 [facility] ([place]) Comment on above: Performed By: #### B MP, GFR #### [place] [address] #### CBC, ADIFF, ANEU #### [address] [address] Sodium molar conc 141 mmol/L Normal 136-145 [facility] ([place]) Comment on above: Performed By: #### B MP, GFR #### [place] [address] #### CBC, ADIFF, ANEU #### [address] [address] Urea nitrogen mass conc 11 mg/dL Normal 7-18 A [facility] ([place]) Comment on above: Performed By: #### B MP, GFR #### [place] [address] #### CBC, ADIFF, ANEU #### [address] [address] Urea nitrogen/Creatinine mass ratio 14 ratio Normal 7-27 [facility] ([place]) Comment on above: Performed By: #### B MP, GFR #### [place] [address] #### CBC, ADIFF, ANEU #### [address] [address] CBCon 11-08-2018 Erythrocyte distribution width Ratio (RBC) 14.9 % High 11.5-14.5 [facility] ([place]) Comment on above: Performed By: #### B MP, GFR #### [place] [address] #### CBC, ADIFF, ANEU #### [address] [address] Hematocrit Volume Fraction (Bld) 40.1 % Normal 37.0-47.0 [facility] ([place]) Comment on above: Performed By: #### B MP, GFR #### [place] [address] #### CBC, ADIFF, ANEU #### [address] [address] Hemoglobin mass conc (Bld) 12.9 G/dL Normal 12.0-16.0 [facility] ([place]) Comment on above: Performed By: #### B MP, GFR #### [place] [address] #### CBC, ADIFF, ANEU #### [address] [address] MCH Entitic mass (RBC) 26.9 pg Low 27.0-31.2 [facility] ([place]) Comment on above: Performed By: #### B MP, GFR #### [address] [address] #### CBC, ADIFF, ANEU #### [address] [address] MCHC mass conc (RBC) 32.2 G/dL Low 33.0-37.0 [facility] ([place]) Comment on above: Performed By: #### B MP, GFR #### [place] [address] #### CBC, ADIFF, ANEU #### [address] [address] MCV Entitic volume (RBC) 83.6 fL Normal 80.0-94.0 [facility] ([place]) Comment on above: Performed By: #### B MP, GFR #### [place] [address] #### CBC, ADIFF, ANEU #### [address] [address] Platelet mean volume Entitic volume (Bld) 8.5 fL Normal 7.4-10.4 [facility] ([place]) Comment on above: Performed By: #### B MP, GFR #### [place] [address] #### CBC, ADIFF, ANEU #### [address] [address] Platelets #/vol (Bld) 266 10 3/mcL Normal 130-400 A [facility] ([place]) Comment on above: Performed By: #### B MP, GFR #### [place] [address] #### CBC, ADIFF, ANEU #### [address] [address] RBC #/vol (Bld) 4.80 10 6/mcL Normal 4.20-5.40 [facility] ([place]) Comment on above: Performed By: #### B MP, GFR #### [place] [address] #### CBC, ADIFF, ANEU #### [address] [address] WBC #/vol (Bld) 16.40 10 3/mcL High 4.60-10.80 [facility] ([place]) Comment on above: Performed By: #### B MP, GFR #### [place] [address] #### CBC, ADIFF, ANEU #### [address] [address] XR KNEE 1 OR 2 VIEWS LEFTon 11-07-2018 XR KNEE 1 OR 2 VIEWS LEFT ORIGINAL Portable LEFT knee AP and crosstable lateral 2 views CLINICAL STATEMENT: Status Post Arthroplasty , knee replacement surgery, check prosthesis alignment COMPARISON: CT 10/19/2018 FINDINGS: There is knee replacement surgery. The total knee prosthesis show satisfactory alignment. Expected postoperative changes in the soft tissues. IMPRESSION: Knee replacement surgery with satisfactory prosthesis alignment. Interpreted By: Augusto Gray MD Preliminary Report By: Augusto Gray MD Electronically Signed By: Augusto Gray MD Dictated Date: 11/07/2018 12:43:37 PM Prelim Date: 11/07/2018 12:43:37 PM Sign Date: 11/07/2018 12:44:20 PM Normal [facility] ([place]) .Auto Diffon 10-23-2018 Ammonia mass conc (P) 0.70 10 3/mcL Normal 0.15-1.00 [facility] ([place]) Comment on above: Performed By: #### C BC, ADIFF, ANEU #### [address] [address] #### BMP, GFR #### [place] [address] Basophils #/vol (Bld) 0.00 10 3/mcL Normal 0.00-0.19 [facility] ([place]) Comment on above: Performed By: #### C BC, ADIFF, ANEU #### [place] [address] #### BMP, GFR #### [address] [address] Basophils/100 WBC (Bld) 0.4 % Normal 0.0-2.5 A [facility] ([place]) Comment on above: Performed By: #### C BC, ADIFF, ANEU #### [address] [address] #### BMP, GFR #### [address] [address] Eosinophils #/vol (Bld) 0.30 10 3/mcL Normal 0.00-0.40 [facility] ([place]) Comment on above: Performed By: #### C BC, ADIFF, ANEU #### [address] [address] #### BMP, GFR #### [address] [address] Eosinophils/100 WBC (Bld) 2.6 % Normal 0.0-7.0 [facility] ([place]) Comment on above: Performed By: #### C BC, ADIFF, ANEU #### [address] [address] #### BMP, GFR #### [address] [address] Lymphocytes #/vol (Bld) 2.20 10 3/mcL Normal 0.77-3.85 [facility] ([place]) Comment on above: Performed By: #### C BC, ADIFF, ANEU #### [place] [address] #### BMP, GFR #### [address] [address] Lymphocytes/100 WBC (Bld) 21.1 % Normal 10.0-50.0 [facility] ([place]) Comment on above: Performed By: #### C BC, ADIFF, ANEU #### [address] [address] #### BMP, GFR #### [address] [address] Monocytes/100 WBC (Bld) 7.0 % Normal 1.7-13.0 A [facility] ([place]) Comment on above: Performed By: #### C BC, ADIFF, ANEU #### [address] [address] #### BMP, GFR #### [address] [address] Neutrophils/100 WBC (Bld) 68.9 % Normal 37.0-80.0 [facility] ([place]) Comment on above: Performed By: #### C BC, ADIFF, ANEU #### Marily [address] [address] #### BMP, GFR #### [address] [address] .GFRon 10-23-2018 GFR 106 ml/min/1.73sqm Normal [facility] ([place]) Comment on above: Result Comment: GFR Population mean for , Non- Americans Ages 20-29 = 116 mL/min/1.73 sq.m. Ages 30-39 = 107 mL/min/1.73 sq.m. Ages 40-49 = 99 mL/min/1.73 sq.m. Ages 50-59 = 93 mL/min/1.73 sq.m. Ages 60-69 = 85 mL/min/1.73 sq.m. Ages 70+ = 75 mL/min/1.73 sq.m. Chronic Kidney Disease: Less than 60 mL/min/1.73 square meters End Stage Renal Disease: Less than 15 mL/min/1.73 square meters Performed By: #### C BC, ADIFF, ANEU #### [place] [address] [address] #### BMP, GFR #### [address] [address] GFR Non- 88 ml/min/1.73sqm Normal [facility] ([place]) Comment on above: Result Comment: GFR Population mean for , Non- Americans Ages 20-29 = 116 mL/min/1.73 sq.m. Ages 30-39 = 107 mL/min/1.73 sq.m. Ages 40-49 = 99 mL/min/1.73 sq.m. Ages 50-59 = 93 mL/min/1.73 sq.m. Ages 60-69 = 85 mL/min/1.73 sq.m. Ages 70+ = 75 mL/min/1.73 sq.m. Chronic Kidney Disease: Less than 60 mL/min/1.73 square meters End Stage Renal Disease: Less than 15 mL/min/1.73 square meters Performed By: #### C BC, ADIFF, ANEU #### [place] [address] #### BMP, GFR #### [address] [address] .NEUABSon 10-23-2018 Neutrophils #/vol (Bld) 7.30 10 3/mcL High 2.85-6.16 [facility] ([place]) Comment on above: Performed By: #### C BC, ADIFF, ANEU #### [place] [address] #### BMP, GFR #### [place] [address] BMPon 10-23-2018 Calcium mass conc 9.0 mg/dL Normal 8.4-10.2 [facility] ([place]) Comment on above: Performed By: #### C BC, ADIFF, ANEU #### [place] [address] #### BMP, GFR #### [place] [address] Chloride molar conc 103 mmol/L Normal 98-107 [facility] ([place]) Comment on above: Performed By: #### C BC, ADIFF, ANEU #### [place] [address] #### BMP, GFR #### [place] [address] CO2 molar conc 31 mmol/L Normal 23-31 [facility] ([place]) Comment on above: Performed By: #### C BC, ADIFF, ANEU #### [place] [address] #### BMP, GFR #### [address] [address] Creatinine mass conc 0.66 mg/dL Normal 0.55-1.02 [facility] ([place]) Comment on above: Performed By: #### C BC, ADIFF, ANEU #### [address] [address] #### BMP, GFR #### [address] [address] Electrolyte Balance 8.0 mEq/L Normal [facility] ([place]) Comment on above: Performed By: #### C BC, ADIFF, ANEU #### [place] [address] #### BMP, GFR #### [place] [address] Glucose mass conc 81 mg/dL Low 83-110 [facility] ([place]) Comment on above: Performed By: #### C BC, ADIFF, ANEU #### [place] [address] #### BMP, GFR #### [address] [address] Potassium molar conc 3.8 mmol/L Normal 3.5-5.1 [facility] ([place]) Comment on above: Performed By: #### C BC, ADIFF, ANEU #### [address] [address] #### BMP, GFR #### [address] [address] Sodium molar conc 142 mmol/L Normal 136-145 [facility] ([place]) Comment on above: Performed By: #### C BC, ADIFF, ANEU #### [place] [address] #### BMP, GFR #### [address] [address] Urea nitrogen mass conc 14 mg/dL Normal 7-18 A [facility] ([place]) Comment on above: Performed By: #### C BC, ADIFF, ANEU #### [address] [address] #### BMP, GFR #### [address] [address] Urea nitrogen/Creatinine mass ratio 21 ratio Normal 7-27 [facility] ([place]) Comment on above: Performed By: #### C BC, ADIFF, ANEU #### [address] [address] #### BMP, GFR #### [place] [address] CBCon 10-23-2018 Erythrocyte distribution width Ratio (RBC) 14.7 % High 11.5-14.5 [facility] ([place]) Comment on above: Performed By: #### C BC, ADIFF, ANEU #### [place] [address] #### BMP, GFR #### [place] [address] Hematocrit Volume Fraction (Bld) 42.1 % Normal 37.0-47.0 [facility] ([place]) Comment on above: Performed By: #### C BC, ADIFF, ANEU #### [place] [address] #### BMP, GFR #### [place] [address] Hemoglobin mass conc (Bld) 13.8 G/dL Normal 12.0-16.0 [facility] ([place]) Comment on above: Performed By: #### C BC, ADIFF, ANEU #### [address] [address] #### BMP, GFR #### [place] [address] MCH Entitic mass (RBC) 27.2 pg Normal 27.0-31.2 [facility] ([place]) Comment on above: Performed By: #### C BC, ADIFF, ANEU #### [address] [address] #### BMP, GFR #### [place] [address] MCHC mass conc (RBC) 32.8 G/dL Low 33.0-37.0 [facility] ([place] Comment on above: Performed By: #### C BC, ADIFF, ANEU #### [address] [address] #### BMP, GFR #### [place] [address] MCV Entitic volume (RBC) 83.1 fL Normal 80.0-94.0 [facility] ([place]) Comment on above: Performed By: #### C BC, ADIFF, ANEU #### [place] [address] #### BMP, GFR #### [place] [address] Platelet mean volume Entitic volume (Bld) 9.0 fL Normal 7.4-10.4 [facility] ([place]) Comment on above: Performed By: #### Anitra BC, ADIFF, ANEU #### [place] [address] #### BMP, GFR #### [place] [address] Platelets #/vol (Bld) 289 10 3/mcL Normal 130-400 A [facility] ([place] Comment on above: Performed By: #### C BC, ADIFF, ANEU #### [place] [address] #### BMP, GFR #### [place] [address] RBC #/vol (Bld) 5.07 10 6/mcL Normal 4.20-5.40 [facility] ([place]) Comment on above: Performed By: #### C BC, ADIFF, ANEU #### [place] [address] #### BMP, GFR #### [place] [address] WBC #/vol (Bld) 10.60 10 3/mcL Normal 4.60-10.80 [facility] ([place]) Comment on above: Performed By: #### C BC, ADIFF, ANEU #### [place] [id number] [place], [place] [address] #### BMP, GFR #### [address] [address] [address] KNEE W/O CONTRAST LEFTon 10-20-2018 CT KNEE W/O CONTRAST LEFT ORIGINAL CT KNEE W/O CONTRAST LEFT This exam was performed according to our departmental dose optimization program, and includes the following measures where applicable: automated exposure control, adjustment of the mAs and/or kVp according to patient size and/or exam, and an iterative reconstruction algorithm. CLINICAL STATEMENT: UNILATERAL PRIMARY OSTEOARTHRITIS, chronic knee pain COMPARISON: None FINDINGS: Tricompartmental osteophyte formation is demonstrated. A rather large osteophyte arises from the medial femoral condyle posteriorly. Medial tibiofemoral and patellofemoral joint compartments are most severely narrowed. There is no fracture. A minimal effusion is present. Axial images were acquired at the LEFT hip and ankle, demonstrating no acute abnormality. IMPRESSION: Advanced osteoarthritis LEFT knee. Interpreted By: Tarsha Alcantara MD Preliminary Report By: Tarsha Alcantara MD Electronically Signed By: Tarsha Alcantara MD Dictated Date: 10/20/2018 10:22:21 AM Prelim Date: 10/20/2018 10:22:21 AM Sign Date: 10/20/2018 10:29:00 AM Normal [facility] ([place]) Vital Signs Date Time Vital Sign Value Performing Clinician Facility 04-17-2025 08:130400 Body height 162.[address] Marika Park MD Work Phone: [facility] 04-17-2025 08:13-0400 Diastolic blood pressure 64 mm[Hg] Dr. Marika Park MD Work Phone: [facility] 04-17-2025 08:13-0400 Systolic blood pressure 138 mm[Hg] Dr. Marika Park MD Work Phone: [facility] 04-17-2025 08:09-0400 Body mass index (BMI) [Ratio] 32.9 kg/m2 Dr. Marika Park MD Work Phone: [facility] 04-17-2025 08:09-0400 Body weight 87.[address] Marika Park MD Work Phone: [facility] 04-17-2025 08:09-0400 Heart rate 66 /min Dr. Marika Park MD Work Phone: [facility] 04-17-2025 08:09-0400 Respiratory rate 18 /min Dr. Marika Park MD Work Phone: [facility] 04-17-2025 08:09-0400 SaO2% (BldA) [Mass fraction] 97 % Dr. Marika Park MD Work Phone: [facility] 04-02-2025 13:14-0400 Body mass index (BMI) [Ratio] 32.59 kg/m2 [facility]ATED ACCESS SYSTEMS TECHNICIAN.IS CONSULTANT Work Phone: [facility] 04-02-2025 13:14-0400 Body weight 88.2 kg Guillermo Alcantara AUTOMATED ACCESS SYSTEMS TECHNICIAN.IS CONSULTANT Work Phone: [facility] 04-02-2025 13:14-0400 Diastolic blood pressure 62 mm[Hg] Guillermo Alcantara AUTOMATED ACCESS SYSTEMS TECHNICIAN.IS CONSULTANT Work Phone: [facility] 04-02-2025 13:14-0400 Heart rate 64 /min Guillermo Alcantara AUTOMATED ACCESS SYSTEMS TECHNICIAN.IS CONSULTANT Work Phone: [facility] 04-02-2025 13:14-0400 Respiratory rate 16 /min Guillermo Alcantara AUTOMATED ACCESS SYSTEMS TECHNICIAN.IS CONSULTANT Work Phone: [facility] 04-02-2025 13:14-0400 SaO2% (BldA) [Mass fraction] 97 % Guillermo Alcantara AUTOMATED ACCESS SYSTEMS TECHNICIAN.IS CONSULTANT Work Phone: [facility] 04-02-2025 13:14-0400 Systolic blood pressure 130 mm[Hg] Guillermo Alcantara AUTOMATED ACCESS SYSTEMS TECHNICIAN.IS CONSULTANT Work Phone: [facility] 03-26-2025 09:43-0400 Body mass index (BMI) [Ratio] 32.52 kg/m2 Su Praisler-Wood AUTOMATED ACCESS SYSTEMS TECHNICIAN.SENIOR RECRUITMENT CONSULTANT Work Phone: [facility] 03-26-2025 09:43-0400 Body temperature 97.9 [degF] Su Praisler-Wood AUTOMATED ACCESS SYSTEMS TECHNICIAN.SENIOR RECRUITMENT CONSULTANT Work Phone: [facility] 03-26-2025 09:43-0400 Body weight 88 kg Su Praisler-Wood AUTOMATED ACCESS SYSTEMS TECHNICIAN.SENIOR RECRUITMENT CONSULTANT Work Phone: [facility] 03-26-2025 09:43-0400 Diastolic blood pressure 82 mm[Hg] Su Praisler-Wood AUTOMATED ACCESS SYSTEMS TECHNICIAN.[facility] Work Phone: [facility] 03-26-2025 09:43-0400 Heart rate 60 /min Su Praisler-Wood AUTOMATED ACCESS SYSTEMS TECHNICIAN.[facility] Work Phone: [facility] 03-26-2025 09:43-0400 Respiratory rate 18 /min Su Praisler-Wood AUTOMATED ACCESS SYSTEMS TECHNICIAN.SENIOR RECRUITMENT CONSULTANT Work Phone: [facility] 03-26-2025 09:43-0400 SaO2% (BldA) [Mass fraction] 97 % Su Praisler-Wood AUTOMATED ACCESS SYSTEMS TECHNICIAN.[facility] Work Phone: [facility] 03-26-2025 09:43-0400 Systolic blood pressure 142 mm[Hg] Su Praisler-Wood AUTOMATED ACCESS SYSTEMS TECHNICIAN.[facility] Work Phone: [facility] 03-18-2025 08:24-0400 Body mass index (BMI) [Ratio] 33.1 kg/m2 Dr. Marika Park MD Work Phone: [facility] 03-18-2025 08:24-0400 Body temperature 97.3 [degF] Dr. Marika Park MD Work Phone: [facility] 03-18-2025 08:24-0400 Body weight 87.[address] Marika Park MD Work Phone: [facility] 03-18-2025 08:24-0400 Diastolic blood pressure 65 mm[Hg] Dr. Marika Park MD Work Phone: [facility] 03-18-2025 08:24-0400 Heart rate 74 /min Dr. Marika Park MD Work Phone: [facility] 03-18-2025 08:24-0400 Respiratory rate 16 /min Dr. Marika Park MD Work Phone: [facility] 03-18-2025 08:24-0400 SaO2% (BldA) [Mass fraction] 97 % Dr. Marika Park MD Work Phone: [facility] 03-18-2025 08:24-0400 Systolic blood pressure 149 mm[Hg] Dr. Marika Park MD Work Phone: [facility] 01-07-2025 10:14-0400 Body mass index (BMI) [Ratio] 32.56 kg/m2 Marika Park MD Work Phone: [facility] 01-07-2025 10:14-0400 Body weight 88.1 kg Marika Park MD Work Phone: [facility] 01-07-2025 10:14-0400 Diastolic blood pressure 59 mm[Hg] Marika Park MD Work Phone: [facility] 01-07-2025 10:14-0400 Heart rate 65 /min Marika Park MD Work Phone: [facility] 01-07-2025 10:14-0400 Respiratory rate 16 /min Marika Park MD Work Phone: [facility] 01-07-2025 10:14-0400 Systolic blood pressure 122 mm[Hg] Marika Park MD Work Phone: [facility] 01-04-2025 09:44-0400 Heart rate 100 /min Dr. Marika Park MD Work Phone: [facility] 01-04-2025 09:00-0400 Body temperature 97.8 [degF] Dr. Marika Park MD Work Phone: 7(805)329-060608 [place] [address] 01-04-2025 09:00-0400 Diastolic blood pressure 100 mm[Hg] Dr. Marika Park MD Work Phone: 0(959)070-048011 [place] [address] 01-04-2025 09:00-0400 Respiratory rate 12 /min Dr. Marika Park MD Work Phone: 1(134)081-901911 [place] [address] 01-04-2025 09:00-0400 SaO2% (BldA) [Mass fraction] 98 % Dr. Marika Park MD Work Phone: 0(758)284-559811 [place] [address] 01-04-2025 09:00-0400 Systolic blood pressure 114 mm[Hg] Dr. Marika Park MD Work Phone: 5(390)523-985611 [place] [address] 01-04-2025 04:32-0400 Body mass index (BMI) [Ratio] 32.6 kg/m2 Dr. Marika Park MD Work Phone: 5(422)564-664911 [place] [address] 01-04-2025 04:32-0400 Body weight 86.[address] Marika Park MD Work Phone: 6(270)436-957711 [place] [address] 01-02-2025 11:11-0400 Body height 162.[address] Marika Park MD Work Phone: 7(890)382-486211 [place] [address] 12-31-2024 13:41-0400 Body mass index (BMI) [Ratio] 33.5 kg/m2 Dr. Marika Park MD Work Phone: 5(623)875-664111 [place] [address] 12-31-2024 13:41-0400 Body weight 88.[address] Marika Park MD Work Phone: 3(023)198-088011 [place] [address] 12-31-2024 13:35-0400 Diastolic blood pressure 54 mm[Hg] Dr. Marika Park MD Work Phone: 6(804)229-406511 [place] [address] 12-31-2024 13:35-0400 Heart rate 70 /min Dr. Marika Park MD Work Phone: 5(686)987-812711 [place] [address] 12-31-2024 13:35-0400 Respiratory rate 10 /min Dr. Marika Park MD Work Phone: [facility] 12-31-2024 13:35-0400 SaO2% (BldA) [Mass fraction] 100 % Dr. Marika Park MD Work Phone: 0(700)918-271308 [place] [address] 12-31-2024 13:35-0400 Systolic blood pressure 111 mm[Hg] Dr. Marika Park MD Work Phone: 1(243)884-189708 [place] [address] 12-31-2024 10:33-0400 Body height 162.[address] Marika Park MD Work Phone: 3(225)775-118908 [place] [address] 12-31-2024 10:33-0400 Body temperature 98 [degF] Dr. Marika Park MD Work Phone: 3(974)101-321808 [place] [address] 11-19-2024 15:57-0400 Body mass index (BMI) [Ratio] 32.11 kg/m2 Raul Bonilla MD Work Phone: [facility] 11-19-2024 15:57-0400 Body temperature 97.39 [degF] Raul Bonilla MD Work Phone: [facility] 11-19-2024 15:57-0400 Body weight 86.9 kg Raul Bonilla MD Work Phone: [facility] 11-19-2024 15:57-0400 Diastolic blood pressure 70 mm[Hg] Raul Bonilla MD Work Phone: [facility] 11-19-2024 15:57-0400 Heart rate 70 /min Raul Bonilla MD Work Phone: [facility] 11-19-2024 15:57-0400 Respiratory rate 18 /min Raul Bonilla MD Work Phone: [facility] 11-19-2024 15:57-0400 SaO2% (BldA) [Mass fraction] 95 % Raul Bonilla MD Work Phone: [facility] 11-19-2024 15:57-0400 Systolic blood pressure 124 mm[Hg] Raul Bonilla MD Work Phone: 6(545)952-773663 [place] [address] 09-18-2024 10:11-0500 Body mass index (BMI) [Ratio] 32.5 kg/m2 Dr. Marika Park MD Work Phone: 2(985)272-599108 [place] [address] 09-18-2024 10:11-0500 Body temperature 97.3 [degF] Dr. Marika Park MD Work Phone: 9(913)458-223411 [place] [address] 09-18-2024 10:11-0500 Body weight 86.[address] Marika Park MD Work Phone: 5(878)398-071011 [place] [address] 09-18-2024 10:11-0500 Diastolic blood pressure 66 mm[Hg] Dr. Marika Park MD Work Phone: 2(857)117-026711 [place] [address] 09-18-2024 10:11-0500 Heart rate 62 /min Dr. Marika Park MD Work Phone: 1(199)368-559911 [place] [address] 09-18-2024 10:11-0500 Respiratory rate 18 /min Dr. Marika Park MD Work Phone: 8(118)822-944311 [place] [address] 09-18-2024 10:11-0500 SaO2% (BldA) [Mass fraction] 95 % Dr. Marika Park MD Work Phone: 6(705)303-222711 [place] [address] 09-18-2024 10:11-0500 Systolic blood pressure 126 mm[Hg] Dr. Marika Park MD Work Phone: 7(322)060-856211 [place] [address] 09-06-2024 11:22-0500 Body height 162.[address] Marika Park MD Work Phone: 5(327)170-799211 [place] [address] 09-06-2024 11:22-0500 Body mass index (BMI) [Ratio] 32.4 kg/m2 Dr. Marika Park MD Work Phone: 2(395)407-301808 [place] [address] 09-06-2024 11:22-0500 Body weight 85.[address] Marika Park MD Work Phone: 7(122)331-874611 [place] [address] 09-06-2024 11:22-0500 Diastolic blood pressure 66 mm[Hg] Dr. Marika Park MD Work Phone: 2(406)594-439911 [place] [address] 09-06-2024 11:22-0500 Heart rate 71 /min Dr. Marika Park MD Work Phone: 3(272)444-748011 [place] [address] 09-06-2024 11:22-0500 Respiratory rate 18 /min Dr. Marika Park MD Work Phone: 7(286)140-456211 [place] [address] 09-06-2024 11:22-0500 Systolic blood pressure 122 mm[Hg] Dr. Marika Park MD Work Phone: 1(878)983-470711 [place] [address] 08-15-2024 09:02-0500 Body temperature 98 [degF] Dr. Marika Park MD Work Phone: 1(230)558-945311 [place] [address] 08-15-2024 09:02-0500 Diastolic blood pressure 66 mm[Hg] Dr. Marika Park MD Work Phone: 9(940)126-855611 [place] [address] 08-15-2024 09:02-0500 Heart rate 68 /min Dr. Marika Park MD Work Phone: 6(241)009-084911 [place] [address] 08-15-2024 09:02-0500 Respiratory rate 18 /min Dr. Marika Park MD Work Phone: 8(365)624-474311 [place] [address] 08-15-2024 09:02-0500 SaO2% (BldA) [Mass fraction] 97 % Dr. Marika Park MD Work Phone: 6(668)345-142411 [place] [address] 08-15-2024 09:02-0500 Systolic blood pressure 135 mm[Hg] Dr. Marika Park MD Work Phone: 3(469)946-418711 [place] [address] 08-15-2024 05:02-0500 Body mass index (BMI) [Ratio] 31.8 kg/m2 Dr. Marika Park MD Work Phone: 7(707)303-237911 [place] [address] 08-15-2024 05:02-0500 Body weight 84.[address] Marika Park MD Work Phone: [facility] 05-04-2024 10:59-0400 Diastolic blood pressure 78 mm[Hg] Mindy Idania AUTOMATED ACCESS SYSTEMS TECHNICIAN.SENIOR RECRUITMENT CONSULTANT Work Phone: [facility] 05-04-2024 10:59-0400 Systolic blood pressure 140 mm[Hg] Mindy Idania AUTOMATED ACCESS SYSTEMS TECHNICIAN.SENIOR RECRUITMENT CONSULTANT Work Phone: [facility] 05-04-2024 10:58-0400 Body mass index (BMI) [Ratio] 31.37 kg/m2 Mindy Idania AUTOMATED ACCESS SYSTEMS TECHNICIAN.SENIOR RECRUITMENT CONSULTANT Work Phone: [facility] 05-04-2024 10:58-0400 Body weight 84.9 kg Imndy Idania AUTOMATED ACCESS SYSTEMS TECHNICIAN.SENIOR RECRUITMENT CONSULTANT Work Phone: [facility] 05-04-2024 10:58-0400 Heart rate 67 /min Mindy Idania AUTOMATED ACCESS SYSTEMS TECHNICIAN.SENIOR RECRUITMENT CONSULTANT Work Phone: [facility] 05-04-2024 10:58-0400 SaO2% (BldA) [Mass fraction] 98 % Mindy Idania AUTOMATED ACCESS SYSTEMS TECHNICIAN.SENIOR RECRUITMENT CONSULTANT Work Phone: [facility] 03-23-2024 11:21-0400 Diastolic blood pressure 72 mm[Hg] Marika Park MD Work Phone: [facility] 03-23-2024 11:21-0400 Systolic blood pressure 146 mm[Hg] Marika Park MD Work Phone: [facility] 03-23-2024 10:26-0400 Body height 164.5 cm Marika Park MD Work Phone: [facility] 03-23-2024 10:26-0400 Body mass index (BMI) [Ratio] 31.85 kg/m2 Marika Park MD Work Phone: [facility] 03-23-2024 10:26-0400 Body temperature 97.11 [degF] Marika Park MD Work Phone: [facility] 03-23-2024 10:26-0400 Body weight 86.2 kg Marika Park MD Work Phone: [facility] 03-23-2024 10:26-0400 Heart rate 70 /min Marika Park MD Work Phone: [facility] 03-23-2024 10:26-0400 Respiratory rate 16 /min Marika Park MD Work Phone: [facility] 03-23-2024 10:26-0400 SaO2% (BldA) [Mass fraction] 96 % Marika Park MD Work Phone: [facility] 11-01-2023 10:08-0400 Diastolic blood pressure 77 mm[Hg] Guillermo Alcantara AUTOMATED ACCESS SYSTEMS TECHNICIAN.IS CONSULTANT Work Phone: [facility] 11-01-2023 10:08-0400 Heart rate 70 /min Guillermo Alcantara AUTOMATED ACCESS SYSTEMS TECHNICIAN.IS CONSULTANT Work Phone: [facility] 11-01-2023 10:08-0400 Systolic blood pressure 145 mm[Hg] Guillermo Alcantara AUTOMATED ACCESS SYSTEMS TECHNICIAN.IS CONSULTANT Work Phone: [facility] 11-01-2023 10:07-0400 Body weight 87.09 kg Guillermo Alcantara AUTOMATED ACCESS SYSTEMS TECHNICIAN.IS CONSULTANT Work Phone: [facility] 11-01-2023 10:07-0400 Respiratory rate 16 /min Guillermo Alcantara AUTOMATED ACCESS SYSTEMS TECHNICIAN.IS CONSULTANT Work Phone: [facility] 10-24-2023 10:06-0400 Diastolic blood pressure 74 mm[Hg] Guillermo Alcantara AUTOMATED ACCESS SYSTEMS TECHNICIAN.IS CONSULTANT Work Phone: [facility] 10-24-2023 10:06-0400 Heart rate 66 /min Guillermo Alcantara AUTOMATED ACCESS SYSTEMS TECHNICIAN.IS CONSULTANT Work Phone: [facility] 10-24-2023 10:06-0400 Systolic blood pressure 154 mm[Hg] Guillermo Alcantara AUTOMATED ACCESS SYSTEMS [email or web address].[email or web address] CONSULTANT Work Phone: [facility] 10-24-2023 10:05-0400 Body weight 86.64 kg Guillermo Alcantara AUTOMATED ACCESS SYSTEMS [email or web address].IS CONSULTANT Work Phone: [facility] 10-24-2023 10:05-0400 Respiratory rate 16 /min Guillermo Alcantara AUTOMATED ACCESS SYSTEMS [email or web address].IS CONSULTANT Work Phone: [facility] 10-17-2023 10:11-0400 Diastolic blood pressure 78 mm[Hg] Guillermo Alcantara AUTOMATED ACCESS SYSTEMS TECHNICIAN.IS CONSULTANT Work Phone: [facility] 10-17-2023 10:11-0400 Heart rate 71 /min Guillermo Alcantara AUTOMATED ACCESS SYSTEMS TECHNICIAN.IS CONSULTANT Work Phone: [facility] 10-17-2023 10:11-0400 Systolic blood pressure 131 mm[Hg] Guillermo Alcantara AUTOMATED ACCESS SYSTEMS TECHNICIAN.IS CONSULTANT Work Phone: [facility] 10-17-2023 10:09-0400 Body weight 87.09 kg Guillermo Alcantara AUTOMATED ACCESS SYSTEMS TECHNICIAN.IS CONSULTANT Work Phone: [facility] 10-17-2023 10:09-0400 Respiratory rate 16 /min Guillermo Alcantara AUTOMATED ACCESS SYSTEMS TECHNICIAN.IS CONSULTANT Work Phone: [facility] 10-11-2023 08:56-0400 Body temperature 96.6 [degF] Guillermo Alcantara AUTOMATED ACCESS SYSTEMS TECHNICIAN.IS CONSULTANT Work Phone: [facility] 10-11-2023 08:56-0400 Body weight 86.77 kg Guillermo Alcantara AUTOMATED ACCESS SYSTEMS TECHNICIAN.IS CONSULTANT Work Phone: [facility] 10-11-2023 08:56-0400 Diastolic blood pressure 70 mm[Hg] Guillermo Alcantara AUTOMATED ACCESS SYSTEMS TECHNICIAN.IS CONSULTANT Work Phone: [facility] 10-11-2023 08:56-0400 Heart rate 80 /min Guillermo Alcantara AUTOMATED ACCESS SYSTEMS TECHNICIAN.IS CONSULTANT Work Phone: [facility] 10-11-2023 08:56-0400 SaO2% (BldA) [Mass fraction] 98 % Guillermo Alcantara AUTOMATED ACCESS SYSTEMS TECHNICIAN.IS CONSULTANT Work Phone: [facility] 10-11-2023 08:56-0400 Systolic blood pressure 150 mm[Hg] Guillermo Alcantara AUTOMATED ACCESS SYSTEMS TECHNICIAN.IS CONSULTANT Work Phone: [facility] 10-09-2023 11:06-0400 Body temperature 97.9 [degF] Mari Athy PA-C Work Phone: [facility] 10-09-2023 11:06-0400 Body weight 86 kg Mari Athy PA-C Work Phone: [facility] 10-09-2023 11:06-0400 Diastolic blood pressure 75 mm[Hg] Mari Athy PA-C Work Phone: [facility] 10-09-2023 11:06-0400 Heart rate 98 /min Mari Athy PA-C Work Phone: [facility] 10-09-2023 11:06-0400 Respiratory rate 20 /min Mari Athy PA-C Work Phone: [facility] 10-09-2023 11:06-0400 SaO2% (BldA) [Mass fraction] 95 % Mari Athy PA-C Work Phone: [facility] 10-09-2023 11:06-0400 Systolic blood pressure 114 mm[Hg] Mari Athy PA-C Work Phone: [facility] 01-10-2023 07:49-0400 Body height 162.[address] Marika Park Work Phone: [facility] 01-10-2023 07:49-0400 Body mass index (BMI) [Ratio] 31.7 kg/m2 Dr. Marika Park Work Phone: [facility] 01-10-2023 07:49-0400 Body temperature 98.4 [degF] Dr. Marika Park Work Phone: [facility] 01-10-2023 07:49-0400 Body weight 83.[address] Marika Park Work Phone: [facility] 01-10-2023 07:49-0400 Diastolic blood pressure 74 mm[Hg] Dr. Marika Park Work Phone: [facility] 01-10-2023 07:49-0400 Heart rate 91 /min Dr. Marika Park Work Phone: [facility] 01-10-2023 07:49-0400 Respiratory rate 18 /min Dr. Marika Park Work Phone: [facility] 01-10-2023 07:49-0400 SaO2% (BldA) [Mass fraction] 94 % Dr. Marika Park Work Phone: [facility] 01-10-2023 07:49-0400 Systolic blood pressure 149 mm[Hg] Dr. Mairka Park Work Phone: [facility] 11-02-2022 13:07-0400 Diastolic blood pressure 70 mm[Hg] Juan Jose Toussaint MD Work Phone: [facility] 11-02-2022 13:07-0400 Heart rate 77 /min Juan Jose Toussaint MD Work Phone: [facility] 11-02-2022 13:07-0400 SaO2% (BldA) [Mass fraction] 98 % Juan Jose Toussaint MD Work Phone: [facility] 11-02-2022 13:07-0400 Systolic blood pressure 164 mm[Hg] Juan Jose Toussaint MD Work Phone: [facility] 11-02-2022 11:41-0400 Respiratory rate 16 /min Juan Jose Toussaint MD Work Phone: [facility] 11-02-2022 11:18-0400 Body temperature 97.7 [degF] Juan Jose Toussaint MD Work Phone: [facility] 11-02-2022 11:18-0400 Body weight 82.7 kg Juan Jose Toussaint MD Work Phone: [facility] 10-25-2022 11:26-0400 Body temperature 97.11 [degF] Raul Bonilla MD Work Phone: [facility] 10-25-2022 11:26-0400 Body weight 82.74 kg Raul Bonilla MD Work Phone: [facility] 10-25-2022 11:26-0400 Diastolic blood pressure 90 mm[Hg] Raul Bonilla MD Work Phone: [facility] 10-25-2022 11:26-0400 Heart rate 64 /min Raul Bonilla MD Work Phone: [facility] 10-25-2022 11:26-0400 Respiratory rate 21 /min Raul Bonilla MD Work Phone: [facility] 10-25-2022 11:26-0400 SaO2% (BldA) [Mass fraction] 95 % Raul Bonilla MD Work Phone: [facility] 10-25-2022 11:26-0400 Systolic blood pressure 172 mm[Hg] Raul Bonilla MD Work Phone: [facility] 09-15-2022 08:38-0500 Body height 162.6 cm Le Chace PA-C Work Phone: [facility] 09-15-2022 08:38-0500 Body temperature 97.2 [degF] Le Chace PA-C Work Phone: [facility] 09-15-2022 08:38-0500 Body weight 83.19 kg Le Chace PA-C Work Phone: [facility] 09-15-2022 08:38-0500 Diastolic blood pressure 86 mm[Hg] Le Iredell PA-C Work Phone: [facility] 09-15-2022 08:38-0500 Heart rate 91 /min Le Chace PA-C Work Phone: [facility] 09-15-2022 08:38-0500 SaO2% (BldA) [Mass fraction] 96 % Le Iredell PA-C Work Phone: [facility] 09-15-2022 08:38-0500 Systolic blood pressure 124 mm[Hg] Le Chace PA-C Work Phone: [facility] 01-20-2022 16:12-0400 Body weight 83.46 kg Marika Park MD Work Phone: [facility] 01-20-2022 16:12-0400 Diastolic blood pressure 82 mm[Hg] Marika Park MD Work Phone: [facility] 01-20-2022 16:12-0400 Heart rate 71 /min Marika Park MD Work Phone: [facility] 01-20-2022 16:12-0400 SaO2% (BldA) [Mass fraction] 97 % Marika Park MD Work Phone: [facility] 01-20-2022 16:12-0400 Systolic blood pressure 122 mm[Hg] Marika Park MD Work Phone: [facility] 12-14-2021 16:13-0400 Body temperature 96.6 [degF] Denia Talia AUTOMATED ACCESS SYSTEMS TECHNICIAN.SENIOR RECRUITMENT CONSULTANT Work Phone: [facility] 12-14-2021 16:13-0400 Body weight 85 kg Denia Talia AUTOMATED ACCESS SYSTEMS TECHNICIAN.SENIOR RECRUITMENT CONSULTANT Work Phone: [facility] 12-14-2021 16:13-0400 Diastolic blood pressure 94 mm[Hg] Denia Talia AUTOMATED ACCESS SYSTEMS TECHNICIAN.SENIOR RECRUITMENT CONSULTANT Work Phone: [facility] 12-14-2021 16:13-0400 Heart rate 80 /min Denia Talia AUTOMATED ACCESS SYSTEMS TECHNICIAN.SENIOR RECRUITMENT CONSULTANT Work Phone: [facility] 12-14-2021 16:13-0400 Respiratory rate 21 /min Denia Talia AUTOMATED ACCESS SYSTEMS TECHNICIAN.SENIOR RECRUITMENT CONSULTANT Work Phone: [facility] 12-14-2021 16:13-0400 SaO2% (BldA) [Mass fraction] 96 % Denia Talia AUTOMATED ACCESS SYSTEMS TECHNICIAN.SENIOR RECRUITMENT CONSULTANT Work Phone: [facility] 12-14-2021 16:13-0400 Systolic blood pressure 172 mm[Hg] Denia Talia AUTOMATED ACCESS SYSTEMS TECHNICIAN.SENIOR RECRUITMENT CONSULTANT Work Phone: [facility] Encounters Encounter Date Encounter Type Care Provider Facility Start: 04-19-2025 ambulatory Marika Park Facilit y:[facility] Start: 04-17-2025 End: 04-17-[address] Marika Park MD Work Phone: -[facility] Start: 04-17-2025 End: 04-17-2025 Patient encounter procedure Timothy Lalita PA -[facility] Work Phone: Start: 04-03-2025 End: 04-03-2025 Telephone encounter Guillermo Alcantara APRN.IS CONSULTANT Work Phone: Internal Medicine [place] Comment on above: Orders Start: 04-02-2025 End: 04-02-2025 ambulatory [facility] Facility:[facility] Start: 04-02-2025 End: 04-02-2025 Patient encounter procedure Guillermo Alcantara AUTOMATED ACCESS SYSTEMS TECHNICIAN.IS CONSULTANT Work Phone: Internal Medicine No Comment on above: Medicare annual well ness visit, subsequent (Primary Dx); Screening for depression; Encounter for screening examination for other mental health and behavioral disorders; Encounter for immunization; Gastrointestinal hemorrhage, unspecified gastrointestinal hemorrhage type; Hypothyroidism, postsurgical; History of thyroid cancer; Chronic anticoagulation; Cellulitis of right lower extremity Start: 03-26-2025 End: 03-26-2025 Patient encounter procedure Su Silveira APRN.SENIOR RECRUITMENT CONSULTANT Work Phone: [facility]gent [facility] No Comment on above: Skin infection (Prim kevin Dx); Infected skin tear Refill Request Start: 03-26-2025 End: 03-26-2025 [facility] Facility:[facility] Start: 03-19-2025 End: 03-19-2025 [facility] Facility:[facility] Start: 03-18-2025 End: 03-18-2025 Patient encounter procedure Jailyn SIMENTAL -[facility] Work Phone: Start: 03-18-2025 End: 03-18-[address] Marika Park MD Work Phone: -[facility] Start: 03-11-2025 End: 03-12-2025 Telephone encounter Marika Park MD Work Phone: Internal Medicine No Comment on above: Orders Start: 02-05-2025 End: 04-10-2025 ambulatory Marika Park MD Work Phone: Internal [facility] [place] Comment on above: Drug interaction. Start: 01-29-2025 Non-patient / Non-visit Dr. Des Reinoso MD -[facility] Work Phone: Start: 01-21-2025 End: 01-21-2025 ambulatory MARIKA PARK Facility:[facility] Start: 01-18-2025 End: 01-18-2025 ambulatory Marika Park MD Work Phone: Internal [facility] [place] Comment on above: Palpitations Refill Request Start: 01-18-2025 End: 01-18-2025 Telephone encounter Marika Park MD Work Phone: Internal Medicine No Comment on above: requesting medicatio n that is Start: 01-07-2025 End: 01-07-2025 Office outpatient visit 25 minutes Markia Park MD Work Phone: Internal [facility] [place] Comment on above: Other iron deficienc y anemia (Primary Dx); Hiatal hernia; Essential hypertension with goal blood pressure less than 140/90; Bilateral lower extremity edema; Angiodysplasia of colon with hemorrhage; Encounter for long-term current use of medication Start: 01-07-2025 End: 01-07-2025 ambulatory MARIKA PARK Facility:[facility] Start: 01-04-2025 Non-patient / Non-visit Dr. Carrillo mcnair MD -[facility] Work Phone: Start: 01-03-2025 Non-patient / Non-visit Dr. Carrillo mcnair MD -[facility] Work Phone: Start: 01-02-2025 Non-patient / Non-visit Austin Michel nd DO -[facility] Start: 01-02-2025 Non-patient / Non-visit Dr. Carrillo mcnair MD -[facility] Work Phone: Start: 01-01-2025 Non-patient / Non-visit Austin Michel nd [facility] Start: 01-01-2025 Non-patient / Non-visit Dr. Carrillo mcnair MD -[facility] Work Phone: Start: 12-31-2024 Non-patient / Non-visit Austin Michel nd [facility] Start: 12-31-2024 ambulatory Myranda Shirley Facility:[facility] Start: 12-31-2024 End: 01-04-2025 Evaluation and management of inpatient Dr. Myranda Shirley DO -Progressive Care Unit Work Phone: Start: 12-31-2024 End: 12-31-2024 Patient encounter procedure Carlos Ibarra APRN.[facility] Work Phone: [facility] Comment on above: Chest pain, unspecif ied type (Primary Dx) Start: 12-31-2024 End: 12-31-2024 ambulatory MARIKA Mandy PARK Facility:[facility] Start: 11-19-2024 End: 11-19-2024 Office outpatient visit 25 minutes Raul Bonilla MD Work Phone: [facility] Comment on above: COPD with exacerbati on (HCC) (Primary Dx) Start: 11-19-2024 End: 11-19-2024 ambulatory [facility] Facility:[facility] Start: 10-25-2024 Non-patient / Non-visit Dr. Marsha MEYERS -[facility] Work Phone: Start: 10-25-2024 End: 10-25-[address] Marika Park MD Work Phone: [facility] Work Phone: Start: 10-25-2024 End: 10-25-2024 Patient encounter procedure Susannah Britt PA -Pulmonary Services/Neurology Work Phone: Start: 10-25-2024 End: 10-25-2024 ambulatory Susannah SCOTT Facility:[facility] Start: 09-18-2024 End: 09-18-2024 Patient encounter procedure Jailyn Johnson GROVE WORKER-C -[facility] Work Phone: Start: 09-18-2024 End: 09-18-2024 ambulatory Marika Park [place] Start: 09-06-2024 End: 09-06-2024 Patient encounter procedure Toby Pinto GROVE WORKER-C -[place] [facility] Work Phone: Start: 09-06-2024 End: 09-06-2024 ambulatory Marika D Lissa [place] Start: 08-15-2024 End: 08-15-2024 Emergency department patient visit Lemuel Anddenice DO -Emergency Department Work Phone: Start: 06-16-2024 End: 06-16-2024 ambulatory MINDY EMERSON Facility:[facility] Start: 05-04-2024 End: 05-04-2024 ambulatory MINDY EMERSON Facility:[facility] Start: 05-04-2024 End: 05-04-2024 Patient encounter procedure Mindy Emerson AUTOMATED ACCESS SYSTEMS TECHNICIAN.SENIOR RECRUITMENT CONSULTANT Work Phone: Internal Medicine No Comment on above: Essential hypertensi on with goal blood pressure less than 140/90 (Primary Dx) Start: 03-23-2024 End: 03-23-2024 Patient encounter procedure Marika Park MD Work Phone: Internal Medicine No Comment on above: Medicare annual well ness visit, subsequent (Primary Dx); Essential hypertension with goal blood pressure less than 140/90; History of thyroid cancer; Hypothyroidism, postsurgical; Hypocalcemia; Elevated hemoglobin A1c; Encounter for long-term current use of medication; Screening for depression; Encounter for screening examination for other mental health and behavioral disorders; Encounter for immunization Start: 01-16-2024 Get Medical Advice Marika wilson MD Work Phone: Internal Medicine No Comment on above: Refills Refill Request Start: 11-18-2023 End: 11-18-2023 Patient encounter procedure Yashira Lab [facility] Work Phone: Vasculary Surgery Comment on above: Left leg cellulitis; Pain and swelling of left lower leg Start: 11-01-2023 End: 11-01-2023 Subsequent hospital visit by physician Antonieta [facility] Work Phone: Radiology Comment on above: Left leg cellulitis [L03.116] Start: 11-01-2023 End: 11-01-2023 Office outpatient visit 25 minutes Guillermo Alcantara AUTOMATED ACCESS SYSTEMS TECHNICIAN.IS CONSULTANT Work Phone: Internal Medicine [place] Comment on above: Left leg cellulitis (Primary Dx); Pain and swelling of left lower leg Start: 10-24-2023 End: 10-24-2023 Office outpatient visit 15 minutes Guillermo Alcantara AUTOMATED ACCESS SYSTEMS TECHNICIAN.IS CONSULTANT Work Phone: Internal Medicine [place] Comment on above: Left leg cellulitis (Primary Dx) Start: 10-17-2023 End: 10-17-2023 Office outpatient visit 15 minutes Guillermo Alcantara AUTOMATED ACCESS SYSTEMS TECHNICIAN.IS CONSULTANT Work Phone: Internal Medicine No Comment on above: Left leg cellulitis (Primary Dx) Start: 10-11-2023 End: 10-11-2023 Office outpatient visit 15 minutes Guillermo Alcantara AUTOMATED ACCESS SYSTEMS TECHNICIAN.IS CONSULTANT Work Phone: Internal Medicine [place] Comment on above: Left leg cellulitis (Primary Dx) Start: 10-09-2023 End: 10-09-2023 Patient encounter procedure Mari Erickson PA-C Work Phone: [facility] Comment on above: Cellulitis of skin ( Primary Dx) Start: 02-08-2023 Refill Marika cannon MD Work Phone: Family Medicine [place] Comment on above: Refill Request Start: 01-19-2023 Non-patient / Non-visit Dr. Juanita Park Work Phone: [facility] Start: 01-18-2023 End: 01-18-[address] Marika Park Work Phone: [facility] Work Phone: Start: 01-18-2023 End: 01-18-[address] Marika Park Work Phone: [facility]-Pulmonary Services/Neurology Start: 01-10-2023 End: 01-10-[address] Marika Park [facility] Start: 01-04-2023 Telephone encounter Marika cummins MD Work Phone: Internal Medicine [place] Comment on above: Referral Request Start: 11-17-2022 ambulatory Le Mas PA -C Work Phone: General Surgery Comment on above: Colonoscopy Results Start: 11-17-2022 E-mail encounter fro m caregiver Le Singhf PA-C Work Phone: [facility] Start: 11-16-2022 Telephone encounter Le Singh f PA-C Work Phone: General Surgery Comment on above: Results Start: 11-02-2022 ambulatory Su L Schelizabeth [facility] Comment on above: Population Health Na vigation Outreach ([facility]) Start: 11-02-2022 End: 11-02-2022 Subsequent hospital visit by physician Juan Jose Toussaint MD Work Phone: Ambulatory Surgery Comment on above: History of colonic p olyps [Z86.010] Start: 10-26-2022 Telephone encounter Nata SCOTT Work Phone: [facility] Comment on above: Results Start: 10-25-2022 End: 10-25-2022 Subsequent hospital visit by physician [facility] Work Phone: Radiology Comment on above: Acute cough [R05.1] Start: 10-25-2022 End: 10-25-2022 Patient encounter procedure Raul Bonilla MD Work Phone: [facility] Comment on above: Acute cough (Primary Dx); Wheezing Start: 09-15-2022 End: 09-15-2022 Patient encounter procedure Le Mas PA-C Work Phone: General Surgery Comment on above: History of colonic p olyps (Primary Dx); Colon cancer screening Start: 09-06-2022 Telephone encounter Marika cummins MD Work Phone: Internal Medicine No Comment on above: Consult Start: 04-09-2022 Telephone encounter Marika cummins MD Work Phone: Internal Medicine [place] Comment on above: Forms Start: 01-20-2022 End: 01-20-2022 Office outpatient visit 25 minutes Marika Park MD Work Phone: Internal Medicine [place] Comment on above: Hypothyroidism, post surgical (Primary Dx); Essential hypertension with goal blood pressure less than 140/90; History of thyroid cancer; Atrial flutter by electrocardiogram (HCC); Lipoma of buttock; Lipoma of back; Hypercalcemia Start: 12-14-2021 End: 12-14-2021 Patient encounter procedure Denia Melgar APRN.SENIOR RECRUITMENT CONSULTANT Work Phone: [facility] Comment on above: Scratch (Primary Dx) Start: 07-21-2021 End: 07-21-2021 ambulatory Marika Park MD Work Phone: Internal Medicine No Comment on above: Hypothyroidism, post surgical (Primary Dx); History of thyroid cancer; Essential hypertension; Medication management; Elevated hemoglobin A1c Start: 07-21-2021 End: 07-21-2021 Telemedicine consultation with patient Marika Park MD Work Phone: [facility] Start: 11-07-2018 End: 11-08-2018 Patient encounter procedure BERNIE WRIGHT Facility:[facility] Start: 10-16-2018 Patient encounter procedure BERNIE WRIGHT Facility:[facility] Start: 10-13-2018 Patient encounter procedure BERNIE WRIGHT Facility:[facility] Procedures Date Procedure Procedure Detail Performing Clinician Start: 04-02-2025 Adult depression screening assessment Guillermo Alcantara APRN.IS CONSULTANT Work Phone: Start: 01-04-[address] Marika Park MD Work Phone: Start: 01-03-2025 Colonoscopy Marika Park MD Work Phone: Start: 01-02-[address] Marika Park MD Work Phone: Start: 01-01-[address] Marika napoles MD Work Phone: Start: 01-01-2025 Serum inorganic phosphate measurement Dr. Marika Park MD Work Phone: Start: 12-31-2024 X-ray of chest, PA and lateral views Dr. Marika Park MD Work Phone: Start: 09-06-2024 Evaluation of diagnostic study results Dr. Marika Park MD Work Phone: Start: 03-23-2024 Adult depression screening assessment Xr No Work Phone: Start: 11-18-2023 Dup-scan xtr veins unilateral/limited study Guillermo Alcantara AUTOMATED ACCESS SYSTEMS TECHNICIAN.IS CONSULTANT Work Phone: Start: 11-02-2022 Level iv surg pathology gross&microscopic exam Juan Jose Toussaint MD Work Phone: Start: 11-02-2022 Colonoscopy flx dx w/collj spec when pfrmd Le Mas PA-C Work Phone: Start: 11-02-2022 Colonoscopy Le Mas PA-C Work Phone: Start: 10-25-2022 Radiologic exam chest 2 views Raul Underwood MD Work Phone: Start: 01-27-2021 Adult depression screening assessment Marika Park MD Work Phone: Plan of Treatment Date Care Activity Detail Author Start: 01-03-2030 Screening for malign ant neoplasm of colon Colonoscopy [facility] Start: 03-19-2028 Diabetes Screening Diabetes Screenin g [facility] Start: 01-22-2028 Diabetes Screening Diabetes Screenin g [facility] Start: 11-03-2027 Colonoscopy COLONOSCOPY [facility] Start: 11-03-2027 COLORECTAL CANCER SCREENING COLORECTAL CANCER SCREENING [facility] Start: 11-03-2027 Screening for malign ant neoplasm of colon [facility] Start: 06-16-2027 Diabetes Screening Diabetes Screenin g [facility] Start: 03-23-2027 Diabetes Screening Diabetes Screenin g [facility] Start: 04-08-2026 End: 04-08-2026 Patient encounter procedure 04/08/2026 2:00 PM EDT Office Visit Internal Medicine [place] [address] [place] [address] Guillermo Alcantara APRN.IS CONSULTANT [address] [place] [address] 6 month f/u Internal Medicine [place] Comment on above: 6 month f/u Start: 04-02-2026 Anxiety Screening Anxiety Screening [facility] Start: 04-02-2026 Depression Screening Depression Scre ening [facility] Start: 04-02-2026 Medicare Annual Well ness Visit Medicare Annual Wellness Visit [facility] Start: 03-15-2026 Diabetes Screening Diabetes Screenin g [facility] Start: 01-07-2026 Annual PCP Team [employer] ellen Disease Visit Annual PCP Team Chronic Disease Visit [facility] Start: 01-07-2026 BP Controlled (<130/80) BP Controlle d (<130/80) [facility] Start: 11-19-2025 BP Controlled (<130/80) BP Controlle d (<130/80) [facility] Start: 10-09-2025 End: 10-09-2025 Patient encounter procedure 10/09/2025 3:20 PM EDT Office Visit Internal Medicine No [address] [place] [address] Marika Park MD [address] [facility] [place] [address] 6 month f/u Internal [facility] [place] Comment on above: 6 month f/u Start: 07-04-2025 End: 07-04-2025 ambulatory 07/04/2025 10:00 AM EST [facility] [address] [place] [address] [facility] Start: 07-02-2025 End: 10-01-2025 TSH W/REFLEX FT4 TSH W/REFLEX FT4 Lab Routine Hypothyroidism, postsurgical History of thyroid cancer Expected: 07/02/2025 (Approximate), Expires: 10/01/2025 [facility] Work Phone: Comment on above: Expected: 07/02/2025 (Approximate), Expires: 10/01/2025 Start: 05-04-2025 Annual PCP Team [employer] ellen Disease Visit Annual PCP Team Chronic Disease Visit [facility] Start: 04-17-2025 End: 04-17-2025 Evaluation of diagnostic study results [facility] Start: 04-02-2025 End: 04-02-2025 Patient encounter procedure Internal Medicine [place] Comment on above: Medicare Wellness Start: 04-01-2025 Influenza vaccination [facility] Start: 03-23-2025 Annual PCP Team [employer] ellen Disease Visit Annual PCP Team Chronic Disease Visit [facility] Start: 03-23-2025 Anxiety Screening Anxiety Screening [facility] Start: 03-23-2025 Depression Screening Depression Scre ening [facility] Start: 03-23-2025 Medicare Annual Well ness Visit Medicare Annual Wellness Visit [facility] Start: 2025 End: 2025 ambulatory 2025 10:00 AM EDT Results Only [facility] [address] [place] [address] [facility] Start: 03-12-2025 End: 06-11-2025 25-hydroxyvitamin D3 [Mass/volume] in Serum or Plasma VITAMIN D 25 HYDROXY Lab Routine Vitamin D deficiency Expected: 03/12/2025, Expires: 06/11/2025 [facility] Comment on above: Expected: 03/12/2025 , Expires: 06/11/2025 Start: 03-12-2025 End: 06-11-2025 CBC W Auto Differential panel - Blood COMPLETE BLOOD COUNT AND DIFFERENTIAL Lab Routine Essential hypertension with goal blood pressure less than 140/90 Essential hypertension Dysmetabolic syndrome X Expected: 03/12/2025, Expires: 06/11/2025 [facility] Comment on above: Expected: 03/12/2025 , Expires: 06/11/2025 Start: 03-12-2025 End: 06-11-2025 Comprehensive metabolic 2000 panel - Serum or Plasma COMPREHENSIVE METABOLIC PANEL Lab Routine Hypothyroidism, postsurgical Essential hypertension with goal blood pressure less than 140/90 Hypocalcemia Essential hypertension Dysmetabolic syndrome X Expected: 03/12/2025, Expires: 06/11/2025 [facility] Work Phone: Comment on above: Expected: 03/12/2025 , Expires: 06/11/2025 Start: 03-12-2025 End: 06-11-2025 Lipid 1996 panel - Serum or Plasma LIPID PANEL, FASTING Lab Routine Essential hypertension Dysmetabolic syndrome X Expected: 03/12/2025, Expires: 06/11/2025 [facility] Comment on above: Expected: 03/12/2025 , Expires: 06/11/2025 Start: 03-12-2025 End: 06-10-2025 Thyroglobulin and Thyrogobulin Ab panel - Serum or Plasma THYROGLOBULIN, SERUM WITH REFLEX TO IA OR LC-MS/MS Lab Routine High serum thyroglobulin History of thyroid cancer Expected: 03/12/2025, Expires: 06/10/2025 [facility] Comment on above: Expected: 03/12/2025 , Expires: 06/10/2025 Start: 03-12-2025 End: 06-11-2025 Thyrotropin [Units/volume] in Serum or Plasma THYROID STIMULATING HORMONE Lab Routine High serum thyroglobulin History of thyroid cancer Hypothyroidism, postsurgical Expected: 03/12/2025, Expires: 06/11/2025 [facility] Comment on above: Expected: 03/12/2025 , Expires: 06/11/2025 Start: 03-12-2025 End: 06-10-2025 Thyroxine (T4) free [Mass/volume] in Serum or Plasma T4 FREE/FREE THYROXINE Lab Routine High serum thyroglobulin History of thyroid cancer Hypothyroidism, postsurgical Expected: 03/12/2025, Expires: 06/10/2025 [facility] Comment on above: Expected: 03/12/2025 , Expires: 06/10/2025 Start: 03-12-2025 End: 06-10-2025 Triiodothyronine (T3) Free [Mass/volume] in Serum or Plasma T3, FREE Lab Routine High serum thyroglobulin History of thyroid cancer Hypothyroidism, postsurgical Expected: 03/12/2025, Expires: 06/10/2025 [facility] Comment on above: Expected: 03/12/2025 , Expires: 06/10/2025 Start: 01-21-2025 End: 04-22-2025 CBC panel - Blood by Automated count COMPLETE BLOOD COUNT Lab Routine Other iron deficiency anemia Essential hypertension with goal blood pressure less than 140/90 Bilateral lower extremity edema Encounter for long-term current use of medication Expected: 01/21/2025 (Approximate), Expires: 04/22/2025 [facility] Work Phone: Comment on above: Expected: 01/21/2025 (Approximate), Expires: 04/22/2025 Start: 01-21-2025 End: 04-22-2025 Comprehensive metabolic 2000 panel - Serum or Plasma COMPREHENSIVE METABOLIC PANEL Lab Routine Essential hypertension with goal blood pressure less than 140/90 Bilateral lower extremity edema Encounter for long-term current use of medication Expected: 01/21/2025 (Approximate), Expires: 04/22/2025 [facility] Comment on above: Expected: 01/21/2025 (Approximate), Expires: 04/22/2025 Start: 01-21-2025 End: 04-22-2025 Magnesium [Mass/volume] in Serum or Plasma MAGNESIUM Lab Routine Encounter for long-term current use of medication Expected: 01/21/2025 (Approximate), Expires: 04/22/2025 [facility] Comment on above: Expected: 01/21/2025 (Approximate), Expires: 04/22/2025 Start: 01-21-2025 End: 01-21-2025 ambulatory 01/21/2025 9:00 AM EDT Results Only [facility] [address] [place] [address] [facility] Start: 01-15-2025 DIABETES SCREEN DIABETES SCREEN [facility] Start: 01-04-2025 Patient discharge [facility] Start: 01-03-2025 Provision of activit y privileges [facility] Start: 01-01-2025 [facility] Start: 01-01-2025 Application of intermittent pneumatic compression device [facility] Start: 12-31-2024 Following clinical p athway protocol [facility] Start: 12-31-2024 Assessment of risk o f venous thromboembolism [facility] Start: 12-31-2024 Catheterization of vein [facility] Start: 12-31-2024 Documentation procedure [facility] Start: 12-31-2024 Inhalation therapy procedure [facility] Start: 12-31-2024 Insertion of cathete r into peripheral vein [facility] Start: 12-31-2024 Measuring intake and output [facility] Start: 12-31-2024 Providing care accor ding to standard [facility] Start: 12-31-2024 Provision of activit y privileges [facility] Start: 12-31-2024 Referral for physica l therapy [facility] Start: 12-31-2024 Referral to gastroenterology service [facility] Start: 12-31-2024 Referral to occupati onal therapist [facility] Start: 12-31-2024 Referral to service [facility] Start: 12-31-2024 [facility] Start: 12-31-2024 Leukocyte reduced re d blood cells [facility] Start: 12-31-2024 Verification routine [facility] Start: 12-31-2024 Admission procedure [facility] Start: 12-31-2024 Hospital admission, emergency, from emergency room, medical nature [facility] Start: 12-31-2024 Administration of bl ood product [facility] Start: 12-31-2024 End: 12-31-2024 [facility] Start: 12-31-2024 End: 01-01-2025 [facility] Start: 10-08-2024 BP Controlled (<130/80) BP Controlle d (<130/80) [facility] Start: 08-15-2024 [facility] Start: 08-01-2024 Advance Directive Discussion Advance Directive Discussion [facility] Start: 07-18-2024 DIABETES SCREEN DIABETES SCREEN [facility] Start: 06-15-2024 End: 09-14-2024 Basic metabolic 2000 panel - Serum or Plasma BASIC METABOLIC PANEL Lab Routine Essential hypertension with goal blood pressure less than 140/90 Expected: 06/15/2024, Expires: 09/14/2024 [facility] Work Phone: Comment on above: Expected: 06/15/2024 , Expires: 09/14/2024 Start: 05-04-2024 End: 05-04-2024 Patient encounter procedure 05/04/2024 10:40 AM EDT Office Visit [facility] [address] [place], [place] [id number] Mindy Emerson APRN.SENIOR RECRUITMENT CONSULTANT [address] [place], [place] [id number] 1 - 2 month BP/medication change follow up [facility] [place] Comment on above: 1 - 2 month BP/medic ation change follow up Start: 04-01-2024 Covid-19 Vaccine ( season) Covid-19 Vaccine ( season) [facility] Start: 04-01-2024 Influenza vaccination C [facility] Start: 03-21-2024 End: 03-21-2024 Patient encounter procedure 03/21/2024 8:00 AM EDT Office Visit [facility] [place] [address] [place], [place] [id number] Marika Park MD [address] [place], [place] [phone] Yealy exam [facility] [place] Comment on above: Yealy exam Start: 03-15-2024 Annual PCP Team [employer] ellen Disease Visit Annual PCP Team Chronic Disease Visit [facility] Start: 03-15-2024 BP Controlled (<130/80) BP Controlle d (<130/80) [facility] Start: 03-15-2024 Covid-19 Vaccine (#1) Covid-19 Vacci ne (#1) [facility] Comment on above: Postponed from 09/16 (Declined at this time) Start: 03-15-2024 Shingrix Vaccine (1 of 2) Bejarano grix Vaccine (1 of 2) [facility] Comment on above: Postponed from 03/16 (Declined at this time) Start: 03-15-2024 Urine microalbumin profile DTa P,Tdap,Td Vaccine (1 - Tdap) [facility] Comment on above: Postponed from 03/16 (Declined at this time) Start: 10-09-2023 End: 01-08-2024 Bacteria identified in Wound by Culture ABSCESS AND WOUND CULTURE WITH GRAM STAIN Microbiology Routine Cellulitis of skin Expected: 10/09/2023, Expires: 01/08/2024 [facility] Work Phone: Comment on above: Expected: 10/09/2023 , Expires: 01/08/2024 Start: 08-01-2023 Advance Directive Discussion Advance Directive Discussion [facility] Start: 08-01-2023 Behavioral Health Screening Behavioral Health Screening [facility] Start: 08-01-2023 Depression Assessment Depression Ass essment [facility] Start: 04-01-2023 Covid-19 Vaccine () Covid-19 Vaccine () [facility] Start: 04-01-2023 Influenza vaccination [facility] Start: 01-20-2023 ANNUAL PCP TEAM TAX MANAGER ELLEN DISEASE VISIT ANNUAL PCP TEAM CHRONIC DISEASE VISIT [facility] Start: 09-01-2022 End: 11-01-2022 25-hydroxyvitamin D3 [Mass/volume] in Serum or Plasma VITAMIN D 25 HYDROXY Lab Routine Hypercalcemia Expected: 09/01/2022 (Approximate), Expires: 11/01/2022 [facility] Work Phone: Comment on above: Expected: 09/01/2022 (Approximate), Expires: 11/01/2022 Start: 09-01-2022 End: 11-01-2022 CBC panel - Blood by Automated count CBC Lab Routine Essential hypertension with goal blood pressure less than 140/90 Expected: 09/01/2022 (Approximate), Expires: 11/01/2022 [facility] Work Phone: Comment on above: Expected: 09/01/2022 (Approximate), Expires: 11/01/2022 Start: 09-01-2022 End: 11-01-2022 Comprehensive metabolic 2000 panel - Serum or Plasma COMP METABOLIC PANEL Lab Routine Essential hypertension with goal blood pressure less than 140/90 Expected: 09/01/2022 (Approximate), Expires: 11/01/2022 [facility] Work Phone: Comment on above: Expected: 09/01/2022 (Approximate), Expires: 11/01/2022 Start: 09-01-2022 End: 11-01-2022 Lipid 1996 panel - Serum or Plasma LIPID PANEL BASIC Lab Routine Essential hypertension with goal blood pressure less than 140/90 Expected: 09/01/2022 (Approximate), Expires: 11/01/2022 [facility] Work Phone: Comment on above: Expected: 09/01/2022 (Approximate), Expires: 11/01/2022 Start: 09-01-2022 End: 11-01-2022 Parathyrin.intact [Mass/volume] in Serum or Plasma PTH INTACT BLD Lab Routine Hypercalcemia Expected: 09/01/2022 (Approximate), Expires: 11/01/2022 [facility] Work Phone: Comment on above: Expected: 09/01/2022 (Approximate), Expires: 11/01/2022 Start: 09-01-2022 End: 11-01-2022 Thyrotropin [Units/volume] in Serum or Plasma TSH BLD Lab Routine Hypothyroidism, postsurgical Expected: 09/01/2022 (Approximate), Expires: 11/01/2022 [facility] Work Phone: Comment on above: Expected: 09/01/2022 (Approximate), Expires: 11/01/2022 Start: 08-01-2022 ADVANCE DIRECTIVE DISCUSSION ADVANCE DIRECTIVE DISCUSSION [facility] Start: 08-01-2022 DEPRESSION ASSESSMENT DEPRESSION ASS ESSMENT [facility] Start: 07-21-2022 ANNUAL PCP TEAM TAX MANAGER ELLEN DISEASE VISIT ANNUAL PCP TEAM CHRONIC DISEASE VISIT [facility] Start: 04-01-2022 Influenza vaccination C [facility] Start: 01-28-2022 Influenza vaccination INFLUENZA (#1) [facility] Comment on above: Postponed from 04/01 (Declined at this time) Start: 01-27-2022 Adult depression scr eening assessment DEPRESSION SCREENING [facility] Start: 01-27-2022 COVID-19 VACCINE (#1) COVID-19 VACCI NE (#1) [facility] Comment on above: Postponed from 03/16 (Declined at this time) Start: 01-27-2022 COVID-19 VACCINE (1) COVID-19 VACCIN E (1) [facility] Comment on above: Postponed from 03/16 (Declined at this time) Start: 01-27-2022 SHINGRIX VACCINE (1 of 2) BEJARANO GRIX VACCINE (1 of 2) [facility] Comment on above: Postponed from 03/16 (Declined at this time) Start: 01-27-2022 Urine microalbumin profile DTAP,TDAP ,TD (1 - Tdap) [facility] Comment on above: Postponed from 03/16 (Declined at this time) Start: 01-19-2022 End: 07-21-2022 CBC panel - Blood by Automated count CBC Lab Routine Essential hypertension Medication management Expected: 01/19/2022 (Approximate), Expires: 07/21/2022 [facility] Work Phone: Comment on above: Expected: 01/19/2022 (Approximate), Expires: 07/21/2022 Start: 01-19-2022 End: 07-21-2022 Comprehensive metabolic 2000 panel - Serum or Plasma COMP METABOLIC PANEL Lab Routine Essential hypertension Medication management Elevated hemoglobin A1c Expected: 01/19/2022 (Approximate), Expires: 07/21/2022 [facility] Work Phone: Comment on above: Expected: 01/19/2022 (Approximate), Expires: 07/21/2022 Start: 01-19-2022 End: 07-21-2022 Hemoglobin A1c/Hemoglobin.total in Blood HGB A1C Lab Routine Elevated hemoglobin A1c Expected: 01/19/2022 (Approximate), Expires: 07/21/2022 [facility] Work Phone: Comment on above: Expected: 01/19/2022 (Approximate), Expires: 07/21/2022 Start: 01-19-2022 End: 07-21-2022 T3 FREE BLD T3 FREE BLD Lab Routine Hypothyroidism, postsurgical Expected: 01/19/2022 (Approximate), Expires: 07/21/2022 [facility] Work Phone: Comment on above: Expected: 01/19/2022 (Approximate), Expires: 07/21/2022 Start: 01-19-2022 End: 07-21-2022 T4 FREE/FREE THYROX T4 FREE/FREE THYROX Lab Routine Hypothyroidism, postsurgical Expected: 01/19/2022 (Approximate), Expires: 07/21/2022 [facility] Work Phone: Comment on above: Expected: 01/19/2022 (Approximate), Expires: 07/21/2022 Start: 01-19-2022 End: 07-21-2022 Thyrotropin [Units/volume] in Serum or Plasma TSH BLD Lab Routine Hypothyroidism, postsurgical Expected: 01/19/2022 (Approximate), Expires: 07/21/2022 [facility] Work Phone: Comment on above: Expected: 01/19/2022 (Approximate), Expires: 07/21/2022 Start: 08-01-2021 ADVANCE DIRECTIVE DISCUSSION ADVANCE DIRECTIVE DISCUSSION [facility] Start: 07-21-2021 End: 07-21-2022 Thyroglobulin and Thyrogobulin Ab panel - Serum or Plasma THYROGLOBULIN BLD Lab Routine History of thyroid cancer Expected: 07/21/2021, Expires: 07/21/2022 [facility] Work Phone: Comment on above: Expected: 07/21/2021 , Expires: 07/21/2022 Start: 2019 RSV Vaccine (1 - 1-d ose 75+ series) RSV Vaccine (1 - 1-dose 75+ series) [facility] Start: 2004 RSV Vaccine (1 - 1-d ose 60+ series) RSV Vaccine (1 - 1-dose 60+ series) [facility] Start: 1994 SHINGRIX VACCINE (1 of 2) BEJARANO GRIX VACCINE (1 of 2) [facility] Start: 1989 COLOGUARD (FIT-DNA) COLOGUARD (FIT-D NA) [facility] Start: [address] COLONOGRAPHY [facility] Start: 1989 FECAL OCCULT BLOOD FECAL OCCULT BLOO D [facility] Start: 1989 Screening for malign ant neoplasm of colon [facility] Start: 1989 SIGMOIDOSCOPY SIGMOIDOSCOPY [facility] Start: 1963 Urine microalbumin profile [facility] Start: 1962 BP CONTROLLED (<130/80) BP CONTROLLE D (<130/80) [facility] Start: 1944 COVID-19 VACCINE (#1) COVID-19 VACCI NE (#1) [facility] CBC W Auto Different ial panel - Blood [facility] Patient Education AFib Dc ED Hypertension, Established [facility] Work Phone: Patient referral [facility] Work Phone: SARS-CoV-2 (COVID-19 ) RNA [Presence] in Respiratory specimen by MAXX with probe detection 2019 CORONAVIRUS Microbiology Routine Acute cough Wheezing Ordered: 10/25/2022 [facility] Work Phone: Comment on above: Ordered: 10/25/2022 Troponin T.cardiac [Mass/volume] in Serum or Plasma by High sensitivity method [facility] End: 10-31-2024 US Lower extremity vein US LEG VEIN DVT UNL [facility]AS LAB Vascular Lab Routine Left leg cellulitis Pain and swelling of left lower leg 1 Occurrences starting 11/01/2023 until 10/31/2024 [facility] Work Phone: Comment on above: 1 Occurrences starti ng 11/01/2023 until 10/31/2024 End: 11-15-2024 XR Tibia and Fibula - left AP and Lateral XR TIBIA FIBULA 2V AP/LAT LEFT Radiology Routine Left leg cellulitis 1 Occurrences starting 10/17/2023 until 11/15/2024 [facility] Work Phone: Comment on above: 1 Occurrences starti ng 10/17/2023 until 11/15/2024 XR Tibia and Fibula - left AP and Lateral XR TIBIA FIBULA 2V AP/LAT LEFT Radiology Routine Left leg cellulitis 11/01/2023 1:28 PM EDT [facility] Work Phone: [facility] Immunizations Immunization Date Immunization Notes Care Provider Ioana christie 12-09-2015 pneumococcal conjuga te vaccine, 13 rene Park MD Work Phone: [facility] Work Phone: 03-05-2014 pneumococcal polysaccharide vaccine, 23 valrodger Park MD Work Phone: [facility] Payers Date Payer Category Payer Self-pay [id number] 2009 Medicare MEDICARE MEDICAR E A AND B [id number] 2009-Present [phone] [address] [address] [place] [address] Medicare [id number] 2009 Medicare [id number] 2009 Medicare [id number] 2005 Private Health Insurance KEVIN AMAYA PPO [id number] 2005-Present [phone] [address] [place] [address] PPO [id number] 2005 Private Health Insurance [id number] 2005 Private Health Insurance [id number] 1944 Unknown [id number] Unknown [id number]. 2.462 Unknown [id number] [id number]. 2.462 Unknown [id number]. 2.462 Unknown [id number]. 2.462 Unknown [id number]. 2.462 Unknown [id number]. 2.462 Unknown [id number]. 2.462 Unknown [id number]. 2.462 Unknown [id number]. 2.462 Unknown [id number] [id number]. 2.462 Unknown [id number]. 2.462 Unknown [id number]. 2.462 Unknown [id number]. 2.462 Unknown [id number]. 2.462 Unknown [id number]. [id number] Unknown [id number] 2.462 Social History Date Type Detail Facility Start: 10-08-2014 End: 12-31-2024 Tobacco smoking status NHIS Ex-smoker [facility] Work Phone: Start: 09-29-1969 End: 09-30-1999 History of tobacco use Current smoker [facility] Start: 05-05-2021 End: 01-07-2025 Alcohol intake Current drinker of alcohol (finding) [facility] Start: 09-14-2019 History SDOH Alcohol Frequency 2 [facility] Start: 09-14-2019 End: 01-13-2022 History SDOH Alcohol Std Drinks 98 [facility] Start: 12-08-2012 History SDOH Alcohol Comment Rarely 1 per month [facility] Start: 09-14-2019 History SDOH Social Connections Phone 4 [facility] Start: 09-14-2019 End: 01-13-2022 History SDOH Social Connections Living 3 [facility] Start: 09-14-2019 End: 01-13-2022 History SDOH Physical Activity MPS 6 [facility] Start: 09-14-2019 History SDOH Financial 5 [facility] Start: 09-14-2019 Education 12 [facility] Start: 1945 Sex Assigned At Not on file C [facility] Start: 08-01-2021 End: 01-20-2022 Exposure to SARS-CoV-2 (event) Not sure [facility] Start: 09-29-1969 End: 09-30-1999 History of tobacco use Cigarette Smoker [facility] Start: 10-08-2014 End: 03-11-2023 Cigarettes smoked current (pack per day) - Reported 1 [facility] Start: 10-08-2014 End: 03-23-2024 Tobacco use and exposure Smokeless tobacco non-user [facility] Start: 01-13-2022 History SDOH Stress 1 [facility] Start: 1945 Sex Assigned At Female C [facility] Start: 01-10-2023 Tobacco smoking stat us MDIS Unknown if ever smoked [facility] Start: 02-10-2019 Occasional [facility] Start: 02-10-2019 None [facility] Start: 02-10-2019 Spouse/ Signif icant Other [facility] Start: 02-10-2019 Non-smoker [facility] Start: 01-14-2023 End: 03-11-2023 Tobacco use panel [facility] Start: 01-13-2022 Gender identity Identifies as female gender (finding) [facility] Start: 07-15-2021 Sexual orientation Heterosexual (zarina fernandez) [facility] Start: 07-02-2012 In a typical week, h ow many times do you talk on the telephone with family, friends, or neighbors? Patient refused [facility] Are you now , , , , never or living with a partner? [facility] How hard is it for y ou to pay for the very basics like food, housing, medical care, and heating Very hard [facility] Do you feel stress - tense, restless, nervous, or anxious, or unable to sleep at night because your mind is troubled all the time - these days [OSQ] Not at all [facility] (I/We) worried wheth er (my/our) food would run out before (I/we) got money to buy more. DK or Refused [facility] How often to you hav e a drink containing alcohol? Never [facility] Start: 11-01-2024 Sex Female (finding) [facility] Has the [employer] or [employer] threatened to shut off services in your home in past 12Mo No [facility] (I/We) worried wheth er (my/our) food would run out before (I/we) got money to buy more. Never true [facility] NEGATED: Highlighted row Not [facility] Medical Equipment Procedure Code Equipment Code Equipment Original Text Equipment Identifier Dates Colonoscopy Gastrointestinal endoscopic clip, long-term, non-bioabsorbable ()[id number] [facility] Start: 01-02-2025 Goals Date Patient Goal Desired Activity /State Functional Status Date Assessment Result Facility 04-01-2025 Total score [AUDIT-C] -1 025 11:29 AM EDT User, Cat [facility] 04-01-2025 Functional status Patient declin ed 04/01/2025 11:29 AM EDT UserCat Patient declined [facility] 01-04-2025 Functional status Up ad gurdeep [facility] Work Phone: 01-24-2015 Are you deaf, or do you have serious difficulty hearing No 01/24/2015 2:30 PM EDT Alison Early LPN No [facility] 01-24-2015 Are you blind, or do you have serious difficulty seeing, even when wearing glasses No 01/24/2015 2:30 PM EDT Alison Early LPN No [facility] 01-24-2015 Do you have serious difficulty walking or climbing stairs No 01/24/2015 2:30 PM EDT Alison Early LPN No [facility] 01-24-2015 Do you have difficul ty dressing or bathing No 01/24/2015 2:30 PM EDT Alison Early LPN No [facility] 01-24-2015 Because of a physica l, mental, or emotional condition, do you have difficulty doing errands alone such as visiting a physician's office or shopping No 01/24/2015 2:30 PM EDT Alison Early LPN No [facility] Mental Status Date Assessment Result Facility 01-04-2025 Cognitive function Voice/Name;Touch/Shaki ng [facility] Work Phone: 12-31-2024 Cognitive function Level Of Cons ciousness Awake;Alert;Appropriate;Fol lows Commands [facility] Work Phone: 08-15-2024 Cognitive function Voice/Name [facility] Work Phone: 01-24-2015 Because of a physica l, mental, or emotional condition, do you have serious difficulty concentrating, remembering, or making decisions No 01/24/2015 2:30 PM EDT Alison Early LPN No [facility] Clinical Notes 02-29-2008 to 04-10-2025 Telephone Encounter - Marika Park MD - 04/10/2025 12:27 AM EDTTelephone Encounter - Marika Park MD - 04/10/2025 12:27 AM EDTAddendum Note - Guillermo Alcantara APRN.IS CONSULTANT - 04/02/2025 2:29 PM EDT Note Date & Type Note Facility 04-10-2025 Telephone encounter Note See MyChart reply [facility] 04-10-2025 Miscellaneous Notes See Cat reply documented in this encounter [facility] 04-03-2025 Telephone encounter Note Yael with [facility] called in and reports they only received the cover page for this Pt. Copied the referral, demographics, and referral and put in faxes to be hand delivered to [facility]. Le Norton RN [facility] 04-03-2025 Miscellaneous Notes Yael with [facility] called in and reports they only received the cover page for this Pt. Copied the referral, demographics, and referral and put in faxes to be hand delivered to [facility]. Le Norton RN documented in this encounter [facility] 04-02-2025 Note Addended by: GUILLERMO ALCANTARA on: 04/02/2025 02:29 PM Modules accepted: Orders [facility] 04-02-2025 Miscellaneous Notes Addended by: GUILLERMO ALCANTARA on: 04/02/2025 02:29 PM Modules accepted: Orders documented in this encounter [facility] 04-02-2025 Note HNO ID: [id number] Author: GUILLERMO ALCANTARA APRN.CNS Service: ? Author Type: Nurse Specialist Type: Progress Notes Filed: 04/02/2025 14:18 Note Text: Marietta Temple is a 80 year old female here for a Medicare wellness visit. Medicare Health Risk Assessment General Health Very good Exercise: Minutes/Day Patient declined Exercise: Days/Week Patient declined Alcohol: Daily Use Patient declined Alcohol: Drinks/Day Patient declined Alcohol: 6 or more drinks Patient declined Feel off balance Yes Concerns: Teeth/Dentures No Concerns: Sexual function Decline Troubled by feelings Decline Frequency: Eating healthy diet Decline ADLs requiring help None of the above Safety precautions in home/vehicle Yes Smoke, vape, chews tobacco No Difficulty hearing Yes Difficulty seeing Yes Current Providers Specialists: I have reviewed specialist-related care of the patient in the medical record. Medical/Family history review Reviewed and updated problem list, medical/surgical/family/social history, medications, and allergies. Opioid use review Opioid Medications (last 90 days) No data to display Anxiety/Depression screening PHQ-2 Score: 0 (Lower risk for depression) LACHELLE-7 Score: 0. Recommendation: no further intervention at this time Cognitive screening Mini Cog Score: 4 Cognitive screening reviewed and No further action needed (score 3-5). Functional Observation Was the patient's Timed Up AND Go test unsteady or >= 12 seconds? No Advance Care Planning Surrogate decision maker and/or advance care plan documented Thomas Measurements BP 130/62 Pulse 64 Resp 16 Wt 88.2 kg (194 lb 7.1 oz) SpO2 97% BMI 32.59 kg/m? Vision Screening: Follows with optometry/ophthalmology Latest Ref Rng 03/23/2024 06/16/2024 01/21/2025 03/19/2025 03/26/2025 WBC 3.70 - 11.00 k/uL 7.49 7.41 7.93 RBC 3.90 - 5.20 m/uL 4.84 3.76 (L) 4.16 Hemoglobin 11.5 - 15.5 g/dL 13.3 9.4 (L) 9.6 (L) Hematocrit 36.0 - 46.0 % 42.7 32.2 (L) 32.4 (L) MCV 80.0 - 100.0 fL 88.2 85.6 77.9 (L) MCH 26.0 - 34.0 pg 27.5 25.0 (L) 23.1 (L) MCHC 30.5 - 36.0 g/dL 31.1 29.2 (L) 29.6 (L) RDW-CV 11.5 - 15.0 % 15.2 (H) 17.1 (H) 18.2 (H) Platelet Count 150 - 400 k/uL 314 449 (H) 396 MPV 9.0 - 12.7 fL 10.9 10.6 10.4 Neut% % 65.4 Abs Neut (ANC) 1.45 - 7.50 k/uL 5.19 Lymph% % 22.3 Abs Lymph 1.00 - 4.00 k/uL 1.77 Nobles% % 8.7 Abs Nobles <0.87 k/uL 0.69 Eosin% % 2.8 Abs Eosin <0.46 k/uL 0.22 Baso% % 0.5 Abs Baso <0.11 k/uL 0.04 Immature Gran % % 0.3 IMMATURE GRANS (ABS) <0.10 k/uL <0.03 NRBC /100 WBC 0.0 Absolute nRBC <0.01 k/uL <0.01 <0.01 <0.01 DTYPE Auto Protein, Total 6.3 - 8.0 g/dL 7.1 6.9 6.9 Albumin 3.9 - 4.9 g/dL 4.3 4.1 4.0 Calcium 8.5 - 10.2 mg/dL 10.0 9.7 10.1 10.0 Bilirubin, Total 0.2 - 1.3 mg/dL 0.3 0.2 0.2 Alkaline Phosphatase 34 - 123 U/L 89 88 85 AST 13 - 35 U/L 31 18 24 ALT 7 - 38 U/L 29 16 24 Glucose 74 - 99 mg/dL 81 78 89 82 BUN 7 - 21 mg/dL 12 14 23 (H) 15 Creatinine 0.58 - 0.96 mg/dL 0.65 0.74 0.99 (H) 0.94 Sodium 136 - 144 mmol/L 138 139 140 137 Potassium 3.7 - 5.1 mmol/L 4.1 4.6 4.2 4.5 Chloride 98 - 107 mmol/L 98 102 102 100 CO2 22 - 30 mmol/L 29 25 25 27 Anion Gap 8 - 15 mmol/L 11 12 13 10 eGFR >=60 mL/min/1.73m? 89 82 58 (L) 61 Cholesterol, Total <200 mg/dL 209 (H) 192 Triglyceride <150 mg/dL 89 77 HDL Cholesterol >39 mg/dL 62 58 Non HDL Cholesterol <130 mg/dL 147 (H) 134 (H) Fasting Time hrs 12 12 VLDL Cholesterol <30 mg/dL 18 13 TC:HDL Ratio <5.10 3.37 3.31 LDL Cholesterol, Calculated <100 mg/dL 129 (H) 120 (H) LDL:HDL Ratio <2.54 2.08 2.07 Thyroglobulin Ab, Serum <4.0 IU/mL <0.9 <0.9 Thyroglobulin, Serum 1.6 - 50.0 ng/mL 2.9 2.7 TSH 0.270 - 4.200 mIU/L 4.080 5.860 (H) Free T4 0.9 - 1.7 ng/dL 1.5 1.3 Free T3 2.3 - 4.1 pg/mL 2.4 2.2 (L) Vitamin D 25 Hydroxy 31.0 - 80.0 ng/mL 129.0 (H) 71.0 Magnesium 1.7 - 2.3 mg/dL 2.1 2.2 Legend: (H) High (L) Low Assessment/Plan Medicare annual wellness visit, subsequent (Z00.00) - Counseled on healthy diet and regular exercise - Fall avoidance information provided - Personalized prevention plan provided 1. Medicare annual wellness visit, subsequent (Z00.00) 2. Screening for depression (Z13.31) 3. Encounter for screening examination for other mental health and behavioral disorders (Z13.39) 4. Encounter for immunization (Z23) - Completed Medicare annual wellness visit with focus on prevention. - No significant memory problems or difficulty with activities of daily living reported. - Discussed importance of advance directives; patient reports having a living will with Thomas as designee. 5. Gastrointestinal hemorrhage, unspecified gastrointestinal hemorrhage type (K92.2) 6. Chronic anticoagulation (Z79.01) - Hemoglobin and hematocrit remain low (Hgb 9.4 in December, 9.6 currently) with no improvement despite iron supplementation; ongoing GI blood loss suspected. - Black, tarry (more content not included)... [facility] 04-02-2025 History of Present illness Narrative Images from the original note were not included. Marietta Temple is a 80 year old female here for a Medicare wellness visit. Medicare Health Risk Assessment General Health Very good Exercise: Minutes/Day Patient declined Exercise: Days/Week Patient declined Alcohol: Daily Use Patient declined Alcohol: Drinks/Day Patient declined Alcohol: 6 or more drinks Patient declined Feel off balance Yes Concerns: Teeth/Dentures No Concerns: Sexual function Decline Troubled by feelings Decline Frequency: Eating healthy diet Decline ADLs requiring help None of the above Safety precautions in home/vehicle Yes Smoke, vape, chews tobacco No Difficulty hearing Yes Difficulty seeing Yes Current Providers Specialists: I have reviewed specialist-related care of the patient in the medical record. Medical/Family history review Reviewed and updated problem list, medical/surgical/family/social history, medications, and allergies. Opioid use review Opioid Medications (last 90 days) No data to display Anxiety/Depression screening PHQ-2 Score: 0 (Lower risk for depression) LACHELLE-7 Score: 0. Recommendation: no further intervention at this time Cognitive screening Mini Cog Score: 4 Cognitive screening reviewed and No further action needed (score 3-5). Functional Observation Was the patient's Timed Up & Go test unsteady or >= 12 seconds? No Advance Care Planning Surrogate decision maker and/or advance care plan documented Thomas Measurements BP 130/62 Pulse 64 Resp 16 Wt 88.2 kg (194 lb 7.1 oz) SpO2 97% BMI 32.59 kg/m Vision Screening: Follows with optometry/ophthalmology Latest Ref Rng 03/23/2024 06/16/2024 01/21/2025 03/19/2025 03/26/2025 WBC 3.70 - 11.00 k/uL 7.49 7.41 7.93 RBC 3.90 - 5.20 m/uL 4.84 3.76 (L) 4.16 Hemoglobin 11.5 - 15.5 g/dL 13.3 9.4 (L) 9.6 (L) Hematocrit 36.0 - 46.0 % 42.7 32.2 (L) 32.4 (L) MCV 80.0 - 100.0 fL 88.2 85.6 77.9 (L) MCH 26.0 - 34.0 pg 27.5 25.0 (L) 23.1 (L) MCHC 30.5 - 36.0 g/dL 31.1 29.2 (L) 29.6 (L) RDW-CV 11.5 - 15.0 % 15.2 (H) 17.1 (H) 18.2 (H) Platelet Count 150 - 400 k/uL 314 449 (H) 396 MPV 9.0 - 12.7 fL 10.9 10.6 10.4 Neut% % 65.4 Abs Neut (ANC) 1.45 - 7.50 k/uL 5.19 Lymph% % 22.3 Abs Lymph 1.00 - 4.00 k/uL 1.77 Nobles% % 8.7 Abs Nobles <0.87 k/uL 0.69 Eosin% % 2.8 Abs Eosin <0.46 k/uL 0.22 Baso% % 0.5 Abs Baso <0.11 k/uL 0.04 Immature Gran % % 0.3 IMMATURE GRANS (ABS) <0.10 k/uL <0.03 NRBC /100 WBC 0.0 Absolute nRBC <0.01 k/uL <0.01 <0.01 <0.01 DTYPE Auto Protein, Total 6.3 - 8.0 g/dL 7.1 6.9 6.9 Albumin 3.9 - 4.9 g/dL 4.3 4.1 4.0 Calcium 8.5 - 10.2 mg/dL 10.0 9.7 10.1 10.0 Bilirubin, Total 0.2 - 1.3 mg/dL 0.3 0.2 0.2 Alkaline Phosphatase 34 - 123 U/L 89 88 85 AST 13 - 35 U/L 31 18 24 ALT 7 - 38 U/L 29 16 24 Glucose 74 - 99 mg/dL 81 78 89 82 BUN 7 - 21 mg/dL 12 14 23 (H) 15 Creatinine 0.58 - 0.96 mg/dL 0.65 0.74 0.99 (H) 0.94 Sodium 136 - 144 mmol/L 138 139 140 137 Potassium 3.7 - 5.1 mmol/L 4.1 4.6 4.2 4.5 Chloride 98 - 107 mmol/L 98 102 102 100 CO2 22 - 30 mmol/L 29 25 25 27 Anion Gap 8 - 15 mmol/L 11 12 13 10 eGFR >=60 mL/min/1.73m 89 82 58 (L) 61 Cholesterol, Total <200 mg/dL 209 (H) 192 Triglyceride <150 mg/dL 89 77 HDL Cholesterol >39 mg/dL 62 58 Non HDL Cholesterol <130 mg/dL 147 (H) 134 (H) Fasting Time hrs 12 12 VLDL Cholesterol <30 mg/dL 18 13 TC:HDL Ratio <5.10 3.37 3.31 LDL Cholesterol, Calculated <100 mg/dL 129 (H) 120 (H) LDL:HDL Ratio <2.54 2.08 2.07 Thyroglobulin Ab, Serum <4.0 IU/mL <0.9 <0.9 Thyroglobulin, Serum 1.6 - 50.0 ng/mL 2.9 2.7 TSH 0.270 - 4.200 mIU/L 4.080 5.860 (H) Free T4 0.9 - 1.7 ng/dL 1.5 1.3 Free T3 2.3 - 4.1 pg/mL 2.4 2.2 (L) Vitamin D 25 Hydroxy 31.0 - 80.0 ng/mL 129.0 (H) 71.0 Magnesium 1.7 - 2.3 mg/dL 2.1 2.2 Legend: (H) High (L) Low Assessment/Plan Medicare annual wellness visit, subsequent (Z00.00) - Counseled on healthy diet and regular exercise - Fall avoidance information provided - Personalized prevention plan provided 1. Medicare annual wellness visit, subsequent (Z00.00) 2. Screening for depression (Z13.31) 3. Encounter for screening examination for other mental health and behavioral disorders (Z13.39) 4. Encounter for immunization (Z23) - Completed Medicare annual wellness visit with focus on prevention. - No significant memory problems or difficulty with activities of daily living reported. - Discussed importance of advance directives; patient reports having a living will with Thomas as designee. 5. Gastrointestinal hemorrhage, unspecified gastrointestinal hemorrhage type (K92.2) 6. Chronic anticoagulation (Z79.01) - Hemoglobin and hematocrit remain low (Hgb 9.4 in December, 9.6 currently) with no improvement despite iron supplementation; ongoing GI blood loss suspected. - Black, tarry stools persist; no overt hematochezia. - History of GI bleeding with prior endoscopic intervention (clipping). - On chronic anticoagulation with Eliquis for stroke prevention; discussed increased bleeding risk. - Advised coordination between gastroenterology and cardiology to determine appropriateness of continued anticoagulation. - Refer to Dr. Jaimes (GI) for further evaluation of ongoing GI blood loss; may require repeat endoscopy or colonoscopy. 7. Hypothyroidism, postsurgical (E89.0) 8. History of thyroid cancer (Z85.850) - TSH elevated on current levothyroxine 112 mcg nightly; patient reports adherence to medication on empty stomach. - Increase levothyroxine to 125 mcg nightly. - Recheck TSH in 3 months. 9. Cellulitis of right lower extremity (L03.115) - Healing lesion on right lower extremity; previously treated with oral antibiotics and Neosporin. - Start topical antibacterial ointment; instructed to wash with soap and water daily, apply ointment, and cover with a bandage until healed. - Advised to notify clinic if not healed by end of antibiotic course. She is followed by [facility], on chronic anticoagulation apixaban for atrial fibrillation for stroke prevention. She had a GI bleed and remains persistently anemic. Recommend she follow-up with rat 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 Dr. Jaimes and cardiology to discuss need for ongoing chronic anticoagulation, need for additional evaluation for continued anemia. Guillermo Alcantara APRN.CNS documented in this encounter [facility] 04-02-2025 Instructions Guillermo Alcantara APRN.CNS - 04/02/2025 1:44 PM EDT - Levothyroxine dose increased to 125 mcg nightly on an empty stomach; prescription has been sent to your pharmacy. - Schedule a blood test in about 3 months to check your TSH level. - Apply the new topical antibiotic ointment to your leg lesion once daily: gently wash the area with soap and water, pat dry, spread on ointment, and cover with a wide Band-Aid until it heals. If it s not healed by next Tuesday, call our office. - Arrange a gastroenterology visit with Dr. Jaimes or another GI provider to evaluate your persistent anemia and discuss whether further testing (such as a repeat scope) is needed. - Contact [facility] (your degreaser operator) to review your use of Eliquis and coordinate with gastroenterology about the balance of bleeding risk and stroke prevention. Screening schedule The following prevention plan is recommended: DTaP,Tdap,Td Vaccine(1 - Tdap) Never done Shingrix Vaccine(1 of 2) Never done RSV Vaccine(1 - 1-dose 75+ series) Never done Advance Directive Discussion due on 08/01/2024 Medicare Annual Wellness Visit due on 03/23/2025 Depression Screening due on 03/23/2025 Anxiety Screening due on 03/23/2025 Influenza Vaccine(1) due on 04/01/2025 WHAT YOU CAN DO TO PREVENT FALLS Many falls can be prevented. By making some changes, you can lower your chances of falling. Four things YOU can do to prevent falls for you* and your caregiver 1. Begin a regular exercise program Exercise is one of the most important ways to lower your chances of falling. It makes you stronger and helps you feel better. Exercises that improve balance and coordination (like Adam Chi) are the most helpful. Lack of exercise leads to weakness and increases your chances of falling. Ask your doctor or health care provider about the best type of exercise program for you. 2. Have your health care provider review your medicines Have your doctor or pharmacist review all the medicines you take, even [id number] medicines. As you get older, the way medicines work in your body can change. Some medicines, or combinations of medicines, can make you sleepy or dizzy and can cause you to fall. 3. Have your vision checked Have your eyes checked by an eye doctor at least once a year. You may be wearing the wrong glasses or have a condition like glaucoma or cataracts that limits your vision. Poor vision can increase your chances of falling. 4. Make your home safer About half of all falls happen at home. To make your home safer: Remove things you can trip over (like papers, books, clothes, and shoes) from stairs and places where you walk. Remove small throw rugs or use double-sided tape to keep the rugs from slipping. Keep items you use often in cabinets you can reach easily without using a step stool. Have grab bars put in next to your toilet and in the tub or shower. Use non-slip mats in the bathtub and on shower floors. Improve the lighting in your home. As you get older, you need brighter lights to see well. Hang light-weight curtains or shades to reduce glare. Have handrails and lights put in on all staircases. Wear shoes both inside and outside the house. Avoid going barefoot or wearing slippers. For more information, contact: Centers for Disease Control and Prevention www.cdc.gov/injury * This information may not apply if you have certain medical conditions. documented in this encounter [facility] 03-26-2025 Telephone encounter Note Prescription Refill Information The patient has been identified by name and date of : Yes Caregiver verified no other encounters exist for this prescription request: Yes Caregiver confirmed with patient/requestor that no other refills are due, in the near future, with this provider at this time: Yes The last office visit in the department: 01/07/25 Does the patient have a future office visit with this provider/department: Yes 04/02/25 Requested Prescriptions Pending Prescriptions Disp Refills apixaban (ELIQUIS) 5 mg tab(s) 180 tablet 3 Sig: Take 1 tablet by mouth two times a day. losartan (COZAAR) 100 mg tablet 90 tablet 3 Sig: Take 1 tablet by mouth once daily. DOSE CHANGE, take one daily triamterene-hydroCHLOROthiazide (MAXZIDE-25) 37.5-25 mg per tablet 135 tablet 3 Sig: Take 1 tab on every other day and the other days take 2 tabs Azalea Read LPN March 26, 2025 10:29 AM T [facility] 03-26-2025 Miscellaneous Notes Prescription Refill Information The patient has been identified by name and date of : Yes Caregiver verified no other encounters exist for this prescription request: Yes Caregiver confirmed with patient/requestor that no other refills are due, in the near future, with this provider at this time: Yes The last office visit in the department: 01/07/25 Does the patient have a future office visit with this provider/department: Yes 04/02/25 Requested Prescriptions Pending Prescriptions Disp Refills apixaban (ELIQUIS) 5 mg tab(s) 180 tablet 3 Sig: Take 1 tablet by mouth two times a day. losartan (COZAAR) 100 mg tablet 90 tablet 3 Sig: Take 1 tablet by mouth once daily. DOSE CHANGE, take one daily triamterene-hydroCHLOROthiazide (MAXZIDE-25) 37.5-25 mg per tablet 135 tablet 3 Sig: Take 1 tab on every other day and the other days take 2 tabs Azalea Read LPN March 26, 2025 10:29 AM documented in this encounter [facility] 03-26-2025 Instructions Su Silveira APRN.SENIOR RECRUITMENT CONSULTANT - 03/26/2025 10:04 AM EDT 1. Skin infection (L08.9) 2. Infected skin tear (T14.8XXA) - Acute skin tear with signs of localized infection (erythema, tenderness, drainage) present for 3-4 days. - Start oral antibiotic TID for 5 days. - Advised to discontinue peroxide use due to delayed healing risk; instructed to apply topical antibiotic ointment (Neosporin or Triple Antibiotic) and keep wound covered for several days. - Advised to avoid water exposure to the wound. - Discussed importance of infection prevention due to history of artificial knees. 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 - At home, clean the knee wound gently, apply a thin layer of antibiotic ointment (for example, Neosporin), and keep it covered with a fresh bandage for the next couple of days. - Do not use peroxide on the wound, since it can slow healing. - Keep the area dry and avoid soaking or water rubbings on your knee. - Expect the swelling and redness to improve over the next few days; monitor for any worsening signs such as increased pain, redness, swelling, drainage, fever, or chills. If these occur, contact the office. documented in this encounter [facility] 03-26-2025 Note HNO ID: [id number] Author: SU SILVEIRA APRN.MAYANK Service: ? Author Type: Nurse Practitioner Type: Progress Notes Filed: 03/26/2025 10:04 Note Text: URGENT CARE NO Temple is a 80 year old female. Patient presents with: leg wound: Right lower leg wound x 3 days HPI The patient is an 80-year-old female presenting for evaluation of a leg wound. Leg Wound: - Sustained a scrape on the leg after missing a step on the porch 3-4 days ago. - Noted swelling around the wound and drainage on the Band-Aid. - Cleaned the wound with witch su and peroxide yesterday. - Reports pain when lying on the affected side. - Denies fever or chills. Review of Systems Constitutional: Negative for chills and fever. Skin: Positive for color change and wound. Negative for rash. Constitutional: (-) fever, (-) chills Musculoskeletal: (+) right lower leg erythema and tenderness and swelling Skin: (+) wound swelling, (+) wound drainage, (-) wound bleeding Objective BP 142/82 Pulse 60 Temp 36.6 ?C (97.9 ?F) (Tympanic) Resp 18 Wt 88 kg (194 lb 0.1 oz) SpO2 97% BMI 32.52 kg/m? Physical Exam Vitals and nursing note reviewed. Constitutional: General: She is not in acute distress. Appearance: Normal appearance. She is not ill-appearing. Cardiovascular: Rate and Rhythm: Normal rate. Pulmonary: Effort: Pulmonary effort is normal. Skin: General: Skin is warm and dry. Capillary Refill: Capillary refill takes less than 2 seconds. Findings: Erythema present. No rash. Neurological: Mental Status: She is alert. { 1. Skin infection (L08.9) 2. Infected skin tear (T14.8XXA) - Acute skin tear with signs of localized infection (erythema, tenderness, drainage) present for 3-4 days. - Start oral antibiotic TID for 5 days. - Advised to discontinue peroxide use due to delayed healing risk; instructed to apply topical antibiotic ointment (Neosporin or Triple Antibiotic) and keep wound covered for several days. - Advised to avoid water exposure to the wound. - Discussed importance of infection prevention due to history of artificial knees. - Follow-up with your PCP in 3-5 days if symptoms have not improved or sooner if symptoms worsen - Discussed red flags and need for immediate medical evaluation if any occur. - Discussed supportive care treatment with fluids, rest and analgesia. - Discussed expected course of illness Su Silveira APRN.SENIOR RECRUITMENT CONSULTANT and Recording using SmartCloud software for draft documentation of the visit was discussed with the patient/authorized provider relations representative; all questions welcomed and answered. Patient/authorized provider relations representative agreed to proceed Disposition The patient was discharged. Procedures [facility] 03-26-2025 History of Present illness Narrative Images from the original note were not included. URGENT CARE NO Popeye Temple is a 80 year old female. Patient presents with: leg wound: Right lower leg wound x 3 days HPI The patient is an 80-year-old female presenting for evaluation of a leg wound. Leg Wound: - Sustained a scrape on the leg after missing a step on the porch 3-4 days ago. - Noted swelling around the wound and drainage on the Band-Aid. - Cleaned the wound with witch su and peroxide yesterday. - Reports pain when lying on the affected side. - Denies fever or chills. Review of Systems Constitutional: Negative for chills and fever. Skin: Positive for color change and wound. Negative for rash. Constitutional: (-) fever, (-) chills Musculoskeletal: (+) right lower leg erythema and tenderness and swelling Skin: (+) wound swelling, (+) wound drainage, (-) wound bleeding Objective BP 142/82 Pulse 60 Temp 36.6 C (97.9 F) (Tympanic) Resp 18 Wt 88 kg (194 lb 0.1 oz) SpO2 97% BMI 32.52 kg/m Physical Exam Vitals and nursing note reviewed. Constitutional: General: She is not in acute distress. Appearance: Normal appearance. She is not ill-appearing. Cardiovascular: Rate and Rhythm: Normal rate. Pulmonary: Effort: Pulmonary effort is normal. Skin: General: Skin is warm and dry. Capillary Refill: Capillary refill takes less than 2 seconds. Findings: Erythema present. No rash. Neurological: Mental Status: She is alert. { 1. Skin infection (L08.9) 2. Infected skin tear (T14.8XXA) - Acute skin tear with signs of localized infection (erythema, tenderness, drainage) present for 3-4 days. - Start oral antibiotic TID for 5 days. - Advised to discontinue peroxide use due to delayed healing risk; instructed to apply topical antibiotic ointment (Neosporin or Triple Antibiotic) and keep wound covered for several days. - Advised to avoid water exposure to the wound. - Discussed importance of infection prevention due to history of artificial knees. - Follow-up with your PCP in 3-5 days if symptoms have not improved or sooner if symptoms worsen - Discussed red flags and need for immediate medical evaluation if any occur. - Discussed supportive care treatment with fluids, rest and analgesia. - Discussed expected course of illness Su Silveira APRN.CNP and Recording using SmartCloud software for draft documentation of the visit was discussed with the patient/authorized provider relations representative; all questions welcomed and answered. Patient/authorized provider relations representative agreed to proceed Disposition The patient was discharged. Procedures documented in this encounter [facility] 03-12-2025 Telephone encounter Note Patient notified that labs have been placed [facility] 03-12-2025 Miscellaneous Notes Patient notified that labs have been placed OK orders in In speaking with patient to reschedule her wellness visit, patient is asking if labs can be drawn prior to her appointment on 04/02. Please advise. Destini Bee documented in this encounter [facility] 03-12-2025 Telephone encounter Note OK orders in [facility] 03-11-2025 Telephone encounter Note In speaking with patient to reschedule her wellness visit, patient is asking if labs can be drawn prior to her appointment on 04/02. Please advise. Destini Bee [facility] 01-18-2025 Telephone encounter Note Pt spouse informed Brooke Gilbert MA [facility] 01-18-2025 Miscellaneous Notes Pt spouse informed Brooke Gilbert MA The following approved medication requests have been transmitted electronically. Requested Prescriptions Pending Prescriptions Disp Refills levothyroxine (SYNTHROID) 112 mcg tablet 90 tablet 3 Sig: Take 1 tablet by mouth once daily. Take on empty stomach. For thyroid Marika Park MD Patient calls and states that she only has 6 pills left. The patient has been identified by name and date of : Yes Caregiver verified no other encounters exist for this prescription request: Yes Caregiver confirmed with patient/requestor that no other refills are due, in the near future, with this provider at this time: Yes The last office visit in the department: 01/07/2025 Does the patient have a future office visit with this provider/department: Yes 01/18/2025 Requested Prescriptions Pending Prescriptions Disp Refills levothyroxine (SYNTHROID) 112 mcg tablet 90 tablet 3 Sig: Take 1 tablet by mouth once daily. Take on empty stomach. For thyroid Destini Hurley RN January 18, 2025 12:32 PM Prescription Refill Information The patient has been identified by name and date of : Yes Caregiver verified no other encounters exist for this prescription request: Yes Caregiver confirmed with patient/requestor that no other refills are due, in the near future, with this provider at this time: Yes The last office visit in the department: 01-07-25 Does the patient have a future office visit with this provider/department: Yes Requested Prescriptions Pending Prescriptions Disp Refills levothyroxine (SYNTHROID) 112 mcg tablet 90 tablet 3 Sig: Take 1 tablet by mouth once daily. Take on empty stomach. For thyroid Desirae Kin January 18, 2025 10:07 AM documented in this encounter [facility] 01-18-2025 Telephone encounter Note The following approved medication requests have been transmitted electronically. Requested Prescriptions Pending Prescriptions Disp Refills levothyroxine (SYNTHROID) 112 mcg tablet 90 tablet 3 Sig: Take 1 tablet by mouth once daily. Take on empty stomach. For thyroid Marika Park MD [facility] 01-18-2025 Telephone encounter Note Patient states that change management specialist prescribes this. Patient will contact that office for refills Destini Hurley RN [facility] 01-18-2025 Miscellaneous Notes Patient states that change management specialist prescribes this. Patient will contact that office for refills Destini Hurley RN Called patient to discuss Advair prescription but she was not available. It appears we have never prescribe the inhaler. Spoke with and ask who prescribe the medication and he didn't know who prescribed it. Inhaler is in cartridge and he can't get it out. He states she uses it everyday. He also states that she needs another refill of something but doesn't remember what it is. He mentioned Protonix but if this is it we didn't prescribe this one either. He is going to talk to patient when she gets home and call us back Patient requesting the following medication that is : ADVAIR HFA 230-21 mcg/actuation inhale Patient last seen 01-07-25 Further appointment scheduled: no PHARMACY: [facility]/No documented in this encounter [facility] 01-18-2025 Telephone encounter Note Patient calls and states that she only has 6 pills left. The patient has been identified by name and date of : Yes Caregiver verified no other encounters exist for this prescription request: Yes Caregiver confirmed with patient/requestor that no other refills are due, in the near future, with this provider at this time: Yes The last office visit in the department: 01/07/2025 Does the patient have a future office visit with this provider/department: Yes 01/18/2025 Requested Prescriptions Pending Prescriptions Disp Refills levothyroxine (SYNTHROID) 112 mcg tablet 90 tablet 3 Sig: Take 1 tablet by mouth once daily. Take on empty stomach. For thyroid Destini Hurley RN January 18, 2025 12:32 PM [facility] 01-18-2025 Telephone encounter Note Patient call in for palpitations that happened only once last evening at 2 am. Patient has been off of Eliquis x 2 weeks after hospital visit. Patient reports that she is supposed to take Eliquis again so she took medication and her palpitations stopped. Nurse Triage assessment completed with protocol recommending for disposition of Home Care. Advised patient that she needs to call degreaser operator about episode and medication. Patient voiced understanding. Care advice reviewed with patient, patient stated understanding. Patient advised to contact office or seek evaluation in urgent care or ER if symptoms persist or gets worse. Reason for Disposition Palpitations Answer Assessment - Initial Assessment Questions 1. DESCRIPTION: Palpitations at 2:30 this morning; states was not bad but just woke her up. 2. ONSET: 2 am this morning. 3. DURATION: About a half hour, took eliquis and it went away 4. PATTERN Just happened once last evening 5. HEART RATE: Heart Rate is doing great now. 6. RECURRENT SYMPTOM: Denies 7. CAUSE: What do you think is causing the palpitations? Unsure, took eliquis and it stopped. 8. CARDIAC HISTORY: A-Fib 9. OTHER SYMPTOMS: Denies Protocols used: Heart Rate and Heartbeat [id number] [facility] 01-18-2025 Miscellaneous Notes Patient call in for palpitations that happened only once last evening at 2 am. Patient has been off of Eliquis x 2 weeks after hospital visit. Patient reports that she is supposed to take Eliquis again so she took medication and her palpitations stopped. Nurse Triage assessment completed with protocol recommending for disposition of Home Care. Advised patient that she needs to call degreaser operator about episode and medication. Patient voiced understanding. Care advice reviewed with patient, patient stated understanding. Patient advised to contact office or seek evaluation in urgent care or ER if symptoms persist or gets worse. Reason for Disposition Palpitations Answer Assessment - Initial Assessment Questions 1. DESCRIPTION: Palpitations at 2:30 this morning; states was not bad but just woke her up. 2. ONSET: 2 am this morning. 3. DURATION: About a half hour, took eliquis and it went away 4. PATTERN Just happened once last evening 5. HEART RATE: Heart Rate is doing great now. 6. RECURRENT SYMPTOM: Denies 7. CAUSE: What do you think is causing the palpitations? Unsure, took eliquis and it stopped. 8. CARDIAC HISTORY: A-Fib 9. OTHER SYMPTOMS: Denies Protocols used: Heart Rate and Heartbeat [id number] TC patient, left message for patient to call back and speak with a triage nurse regarding symptoms Destini Hurley RN [place] is calling Marika Park MD today with concern regarding patient having Palpitations last night. Patient was not taking eliquis. Patient was in the hospital and she was told not to take the medication for 2 weeks. Patient took an Eliquis last night while having the heart palpitations. The palpitations went away. Patient will be leaving at 10:30. Patient has been identified by name and birthdate. Duration of symptoms: 1 days Person calling: self Call patient at: on home [phone] (home) [phone] (cell) Was an appointment scheduled: No Closing statement: Symptom Call: Thank you for calling [facility], your call is very important. A nurse will call in approximately 2-4 hours during business hours. If this is an emergency, please contact 911. Desirae Sanderson documented in this encounter [facility] 01-18-2025 Telephone encounter Note TC patient, left message for patient to call back and speak with a triage nurse regarding symptoms Destini Hurley RN [facility] 01-18-2025 Telephone encounter Note Called patient to discuss Advair prescription but she was not available. It appears we have never prescribe the inhaler. Spoke with and ask who prescribe the medication and he didn't know who prescribed it. Inhaler is in cartridge and he can't get it out. He states she uses it everyday. He also states that she needs another refill of something but doesn't remember what it is. He mentioned Protonix but if this is it we didn't prescribe this one either. He is going to talk to patient when she gets home and call us back [facility] 01-18-2025 Telephone encounter Note Marietta is calling Marika Park MD today with concern regarding patient having Palpitations last night. Patient was not taking eliquis. Patient was in the hospital and she was told not to take the medication for 2 weeks. Patient took an Eliquis last night while having the heart palpitations. The palpitations went away. Patient will be leaving at 10:30. Patient has been identified by name and birthdate. Duration of symptoms: 1 days Person calling: self Call patient at: on home [phone] (home) [phone] (cell) Was an appointment scheduled: No Closing statement: Symptom Call: Thank you for calling [facility], your call is very important. A nurse will call in approximately 2-4 hours during business hours. If this is an emergency, please contact 911. Desirae Sanderson T [facility] 01-18-2025 Telephone encounter Note Patient requesting the following medication that is : ADVAIR HFA 230-21 mcg/actuation inhale Patient last seen 01-07-25 Further appointment scheduled: no PHARMACY: [facility]/No [facility] 01-18-2025 Telephone encounter Note Prescription Refill Information The patient has been identified by name and date of : Yes Caregiver verified no other encounters exist for this prescription request: Yes Caregiver confirmed with patient/requestor that no other refills are due, in the near future, with this provider at this time: Yes The last office visit in the department: 01-07-25 Does the patient have a future office visit with this provider/department: Yes Requested Prescriptions Pending Prescriptions Disp Refills levothyroxine (SYNTHROID) 112 mcg tablet 90 tablet 3 Sig: Take 1 tablet by mouth once daily. Take on empty stomach. For thyroid Desirae Sanderson January 18, 2025 10:07 AM [facility] 01-07-2025 Note HNO ID: [id number] Author: MARIKA PARK MD Service: ? Author Type: Physician Type: Progress Notes Filed: 01/07/2025 10:57 Note Text: This note was created using [employer]. Popeye Temple is a 79 year old female. Patient presents with: [facility] F/U Marietta Temple is a 79-year-old female, with a history of diverticulitis, presenting for follow-up after a recent hospitalization for GI bleeding and severe anemia. Marietta was hospitalized at [facility] from December 31 to January 04 for GI bleeding and severe anemia, with a hemoglobin level of 5.8 g/dL on admission. During her hospital stay, she received 2 units of packed red blood cells, an iron infusion, and was placed on Protonix. An endoscopy was performed by Dr. 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 A hiatal hernia and a gastric lipoma were also identified. A colonoscopy revealed diverticuli, red blood in the cecum, and 2 large localized angiodysplastic lesions, which were treated with clips. Since discharge, Marietta has been experiencing significant swelling in her feet and ankles, which she attributes to the iron infusion and oral iron tablets she is currently taking. She reports that the swelling increases when she is upright and ambulating. She also notes weight gain, which she believes is primarily due to fluid retention. She denies any issues with swelling prior to her anemia and hospitalization. Marietta reports dark stools but denies hematochezia. She experiences occasional reflux, which she manages by avoiding overeating and certain foods. She denies persistent reflux. She also reports feeling bloated and describes her abdomen as big gut, noting that she felt after taking the iron. This bloating has subsided somewhat since returning home. Marietta reports fatigue, stating that she can work for about 10-15 minutes before needing to sit down. She also experiences neck, back, and leg pain, which she attributes to her anemia. She reports that her energy levels are slowly returning and that she feels better after taking a nap. She denies any issues with bowel movements and reports that her cramping before and after bowel movements has subsided. Marietta is currently holding her Eliquis for 2 weeks as per her discharge instructions. She has resumed her regular medications, including metoprolol. She reports that her blood pressure has been lower than usual since her anemia, with readings in the hospital as low as 48 mmHg. She notes that her normal diastolic blood pressure is usually in the 70s. Marietta also reports a hard area on her forearm where an IV was placed during her hospital stay. She describes the area as real hard and notes that it was uncomfortable. She reports that the IV was moved to a different location by a nurse. Marietta is concerned about her weight and asks for recommendations to help her lose weight. She reports that she eats a lot of vegetables and drinks coffee and water, but has a sweet tooth and occasionally eats ice cream. She also reports a craving for peanuts and eats a handful of dry roasted peanuts. She enjoys oatmeal and scrambled eggs and reports that she has been doing some exercises, including stretching and leg weights, in bed. She has a treadmill and a bic, ycle in her basement and expresses a desire to do water aerobics. PAST MEDICAL HISTORY Diagnosis Date Benign neoplasm of colon Cancer (HCC) Colon polyp Cystocele, midline Hemorrhage of gastrointestinal tract, unspecified Hypothyroidism, postsurgical Indeterminate pulmonary nodules 12/18/2012 CT stable 2009 through 10/2012. 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 pantoprazole DR (PROTONIX) 40 mg tablet Take 1 tablet by mouth once daily. metoprolol succinate ER (TOPROL XL) 50 mg 24 hr tablet Take 50 mg by mouth two times a day. triamterene-hydroCHLOROthiazide (MAXZIDE-25) 37.5-25 mg per tablet Take 1 tab on every other day and the other days take 2 tabs losartan (COZAAR) 100 mg tablet Take 1 tablet by mouth once daily. DOSE CHANGE, take one daily conjugated estrogens (PREMARIN) vaginal cream Use small amount at vaginal opening twice a week apixaban (ELIQUIS) 5 mg tab(s) Take 1 tablet by (more content not included)... [facility] 01-07-2025 History of Present illness Narrative This note was created using NoteWriter. Subjective Marietta Temple is a 79 year old female. Patient presents with: Hospital F/U Marietta Temple is a 79-year-old female, with a history of diverticulitis, presenting for follow-up after a recent hospitalization for GI bleeding and severe anemia. Marietta was hospitalized at [facility] from December 31 to January 04 for GI bleeding and severe anemia, with a hemoglobin level of 5.8 g/dL on admission. During her hospital stay, she received 2 units of packed red blood cells, an iron infusion, and was placed on Protonix. An endoscopy was performed by Dr. 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 A hiatal hernia and a gastric lipoma were also identified. A colonoscopy revealed diverticuli, red blood in the cecum, and 2 large localized angiodysplastic lesions, which were treated with clips. Since discharge, Marietta has been experiencing significant swelling in her feet and ankles, which she attributes to the iron infusion and oral iron tablets she is currently taking. She reports that the swelling increases when she is upright and ambulating. She also notes weight gain, which she believes is primarily due to fluid retention. She denies any issues with swelling prior to her anemia and hospitalization. Marietta reports dark stools but denies hematochezia. She experiences occasional reflux, which she manages by avoiding overeating and certain foods. She denies persistent reflux. She also reports feeling bloated and describes her abdomen as big gut, noting that she felt after taking the iron. This bloating has subsided somewhat since returning home. Marietta reports fatigue, stating that she can work for about 10-15 minutes before needing to sit down. She also experiences neck, back, and leg pain, which she attributes to her anemia. She reports that her energy levels are slowly returning and that she feels better after taking a nap. She denies any issues with bowel movements and reports that her cramping before and after bowel movements has subsided. Marietta is currently holding her Eliquis for 2 weeks as per her discharge instructions. She has resumed her regular medications, including metoprolol. She reports that her blood pressure has been lower than usual since her anemia, with readings in the hospital as low as 48 mmHg. She notes that her normal diastolic blood pressure is usually in the 70s. Marietta also reports a hard area on her forearm where an IV was placed during her hospital stay. She describes the area as real hard and notes that it was uncomfortable. She reports that the IV was moved to a different location by a nurse. Marietta is concerned about her weight and asks for recommendations to help her lose weight. She reports that she eats a lot of vegetables and drinks coffee and water, but has a sweet tooth and occasionally eats ice cream. She also reports a craving for peanuts and eats a handful of dry roasted peanuts. She enjoys oatmeal and scrambled eggs and reports that she has been doing some exercises, including stretching and leg weights, in bed. She has a treadmill and a bic, ycle in her basement and expresses a desire to do water aerobics. PAST MEDICAL HISTORY Diagnosis Date Benign neoplasm of colon Cancer (HCC) Colon polyp Cystocele, midline Hemorrhage of gastrointestinal tract, unspecified Hypothyroidism, postsurgical Indeterminate pulmonary nodules 12/18/2012 CT stable 2009 through 10/2012. 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 pantoprazole DR (PROTONIX) 40 mg tablet Take 1 tablet by mouth once daily. metoprolol succinate ER (TOPROL XL) 50 mg 24 hr tablet Take 50 mg by mouth two times a day. triamterene-hydroCHLOROthiazide (MAXZIDE-25) 37.5-25 mg per tablet Take 1 tab on every other day and the other days take 2 tabs losartan (COZAAR) 100 mg tablet Take 1 tablet by mouth once daily. DOSE CHANGE, take one daily conjugated estrogens (PREMARIN) vaginal cream Use small amount at vaginal opening twice a week apixaban (ELIQUIS) 5 mg tab(s) Take 1 tablet by mouth two times a day. levothyroxine (SYNTHROID) 112 mcg tablet Take 1 tablet by mouth once daily. Take on empty stomach. For thyroid meclizine (ANTIVERT) 25 mg tab Take 1 tablet by mouth three times daily. Multivitamin capsule Take 1 capsule by mouth once daily. magnesium oxide 200 mg magnesium tab Take 1 tablet by mouth once daily. cholecalciferol (VITAMIN D3) 50 mcg (2,000 unit) tablet Take 2,000 Units by mouth once daily. coenzyme Q10 (COENZYME Q-10) 100 mg cap capsule Take 100 mg by mouth once daily. metoprolol succinate ER (TOPROL XL) 25 mg 24 hr tablet Take 1 tablet by mouth once daily. (Patient not taking: Reported on 11/19/2024) No current facility-administered medications for this visit. Review of Systems Objective BP 122/59 Pulse 65 Resp 16 Wt 88.1 kg (194 lb 3.6 oz) BMI 32.56 kg/m Last 5 Encounter Wt Readings: Date: Wt: 01/07/2025 88.1 kg (194 lb 3.6 oz) 11/19/2024 86.9 kg (191 lb 9.3 oz) 05/04/2024 84.9 kg (187 lb 2.7 oz) 03/23/2024 86.2 kg (190 lb 0.6 oz) 11/01/2023 87.1 kg (192 lb) No waist measurement recorded Estimated body mass index is 32.56 kg/m as calculated from the following: Height as of 03/23/24: 164.5 cm (5' 4.76). Weight as of this encounter: 88.1 kg (194 lb 3.6 oz). Last 5 Encounter BP Readings: Date: BP: 01/07/2025 122/59 11/19/2024 124/70 05/04/2024 140/78 03/23/2024 146/72 11/01/2023 145/77[192lb[ Physical Exam Constitutional: Appearance: Normal appearance. HENT: Head: Normocephalic. Eyes: Conjunctiva/sclera: Conjunctivae normal. Cardiovascular: Rate and Rhythm: Normal rate and regular rhythm. Heart sounds: Normal heart sounds. Comments: Both lower legs and feet with edema Pulmonary: Effort: Pulmonary effort is normal. Breath sounds: Normal breath sounds. Musculoskeletal: Right lower le+ Pitting Edema present. Left lower le+ Pitting Edema present. Skin: General: Skin is warm and dry. Neurological: General: No focal deficit present. Mental Status: She is alert and oriented to person, place, and time. Psychiatric: Mood and Affect: Mood normal. Behavior: Behavior normal. Thought Content: Thought content normal. Judgment: Judgment normal. Assessment and Plan # Other iron deficiency anemia (D50.8) # Bilateral lower extremity edema (R60.0) - Recent hospitalization from December 31 to January 04 for GI bleeding resulted in severe anemia with hemoglobin dropping to 5.8 g/dL on admission. - Received two units of packed red blood cells and iron infusions during hospitalization. - Current hemoglobin is 8.1 g/dL; patient still experiencing fatigue and edema. - Edema likely multifactorial, related to anemia and recent fluid administration during hospitalization. - Prescribed oral iron supplements; discussed potential side effects including gastrointestinal upset and constipation. - Recommended dietary sources of iron such as liver, beef, and minh seeds. - Ordered CBC and comprehensive metabolic panel to be performed in 2-4 weeks to monitor hemoglobin levels and assess kidney and liver function. - Advised use of support stockings and leg elevation to manage edema. - Patient understands and agrees with the treatment plan. # Hiatal hernia (K44.9) - Diagnosed during recent endoscopy; small in size. - Discussed dietary modifications to reduce reflux symptoms, including smaller meals, avoiding eating 3 hours before bedtime, and limiting acidic foods. - Patient reports occasional reflux; advised to monitor and report any worsening symptoms. # Essential hypertension with goal blood pressure less than 140/90 (I10) - Blood pressure today is 122/59 mmHg. - Resumed metoprolol as per hospital discharge instructions. - Continue current antihypertensive regimen. 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 - No further episodes of hematochezia reported. - Holding Eliquis for 2 weeks post-procedure to ensure hemostasis. - Awaiting biopsy results from endoscopy to rule out Lozada's esophagus. - Scheduled follow-up with Dr. Jaimes to discuss biopsy results and further management. # Encounter for long-term current use of medication (Z79.899) - Resumed metoprolol as per hospital discharge instructions. - Holding Eliquis for 2 weeks post-procedure to ensure hemostasis. - Continue current antihypertensive regimen. I spent a total of 30 minutes on the date of the service which included [id number] patient care, completing clinical documentation, obtaining and/or reviewing separately obtained history, performing a medically appropriate examination, counseling and educating the patient/family/caregiver, and ordering medications, tests, or procedures. Marika Park MD Recording using SmartCloud software for draft documentation of the visit was discussed with the patient/authorized provider relations representative; all questions welcomed and answered. Patient/authorized provider relations representative agreed to proceed documented in this encounter [facility] 01-04-2025 Discharge summary Note Date/Time January 04, 2025 9:49am [facility] Medical Records Department [address] [place] [address] Discharge Summary 01/04/25 0941 MR#: [id number] Acct: [id number] Name: MARIETTA TEMPLE Rep #[id number] : 1945 79 From: Carrillo Strong MD PCP: Dr. Marika Park MD Status:AD M IN Location: [place] [id number]- Providers Date of Admission: 12/31/24 Date of Discharge: 01/04/25 Primary Care Physician: Dr. Marika Park MD Consultations 12/31/24 15:09 Consult: Gastroenterology Routine Consulting Provider: [facility] Reason for Consult: GI bleed EMERGENT Consult: No MD Notified: Yes Date Notified: 12/31/24 Time Notified: 14:36 Method of Notification: ED Physician Initiated Reason For Visit: UPPER GI BLEED Diagnosis Discharge Diagnosis (1) Melena: Status: Acute Code(s): K92.1 - Melena Plan Patient is an 79-year-old lady admitted with GI bleed?melena with associated fatigue 1.Acute GI bleed ? Suspected to be secondary to upper GI bleed exacerbated by the use of apixaban. Patient hemoglobin on admission was 5.8. Admitted to a monitored bedpatient was transfused with 2 unit PRBC and. Eliquis held started on Protonix drip following a bolus. Consult placed to GI for endoscopy ? 01/02/2025; patient underwent EGD by Dr. 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 Biopsied. - Small hiatal hernia. - Gastric lipoma. - Mucosal changes in the duodenum. Biopsied. Recommendations : - [facility]. - Clear liquid diet. - Continue present medications. - Await pathology results. - Prep for colonoscopy ? Patient scheduled to undergo colonoscopy ? 01/03/2025; patient underwent colonoscopy the day prior. Official report pending. Repeated H&H this a.m. 01/04/2025 7: Patient colonoscopy demonstrated multiple small and large mouth diverticula found in the rectosigmoid colon, sigmoid colon and descending colon as well as splenic and descending colon red blood was found in the cecum. Patient was also noted to have 2 large localized angiodysplastic lesion with bleeding in the cecum. Coagulation for hemostasis using heater probe was successful. For location marking 1 hemostatic clip was successfully placed. 2. Anemia ? Secondary to acute blood loss anemia management as discussed above; monitoringH&H and transfuse if patient becomes symptomatic or hemoglobin falls below 7 ? 01/02/2025; patient hemoglobin up to 8.1 following blood transfusion. Will repeat H&H in a.m. 3. Paroxysmal atrial fibrillation ? Rate controlled on systemic anticoagulation with apixaban held given reasons above ? In view of above decision was made to hold patient systemic anticoagulation for a week on discharge 4. Essential hypertension ? Patient antihypertensives held on admission given relative hypotension 5. Class I obesity with BMI of 34 ? Complicating care weight loss advised 6. History of thyroid cancer status post thyroidectomy ? Patient is on replacement therapy with levothyroxine 7. Generalized osteoarthritis ? Pain meds as needed 8. DVT prophylaxis ? Chemoprophylaxis contraindicated given patient presentation Time spent in the patient's overall evaluation,decision-making process, review of diagnostic data, adjustment of management, discussion with other providers, nursing nursing and ancillary staff involved in patient's care documentation, 35 Minutes Medications at Discharge Home Medications conjugated estrogens 0.625 mg/gram vaginal cream 1 dose vaginal .COMPLEX [id number] magnesium oxide 200 mg PO DAILY 10/24/19 multivitamin 1 cap PO DAILY 10/24/19 triamterene 37.5 mg-hydrochlorothiazide 25 mg tablet 1 tab PO QODAY 07/16/21 cholecalciferol (vitamin D3) 50 mcg (2,000 unit) tablet 50 mcg PO DAILY 01/07/23 coenzyme Q10 10 mg capsule 10 mg PO ONCE 01/07/23 levothyroxine 112 mcg tablet 112 mcg PO DAILY 01/07/23 spacer #1 ea 02/22/23 spacer #1 ea 03/21/23 lactobacillus combination no.4 3 billion cell capsule (Probiotic) 3,000 mmu cells PO DAILY supplement 08/15/24 fluticasone propionate 230 mcg-salmeterol 21 mcg/actuation HFA inhaler (Advair HFA) 2 inh inhalation BID #3 ea 09/18/24 metoprolol succinate 50 mg tablet,extended release 24 hr 50 mg PO BID 90 days #180 tabs 09/28/24 apixaban 5 mg tablet (Eliquis) 5 mg PO BID 12/31/24 Held on 01/04/25. Instructions: Resume on 01/14/25. losartan 100 mg tablet 100 mg PO DAILY 12/31/24 triamterene 37.5 mg-hydrochlorothiazide 25 mg tablet 2 tab PO QODAY 12/31/24 pantoprazole 40 mg tablet,delayed release (Protonix) 40 mg PO DAILY #90 tabs 01/04/25 polysaccharide iron complex 150 mg iron capsule (Ferrex) 150 mg PO DAILY #90 caps 01/04/25 Physical Exam Narrative GENERAL: cooperative HEENT: Atraumatic; normocephalic EYES; Anicteric, Normal Conjunctiva NECK; supple, normal thyroid, RESPIRATORY: Diminished to auscultation CARDIOVASCULAR: Regular S1 S2, GI: soft, normoactive bowel sounds, : No Renal angle tenderness; EXTREMITIES: No edema, no clubbing, MUSCULOSKELETAL: no muscle wasting NEURO: Awake; no lateralizing signs. SKIN: No Rash PSYCH; Flat affect Weight / BMI Weight Weight: 86.3 kg Body Mass Index (BMI) 32.6 ABG / Lab / Microbiology Data 01/04/25 08:40 01/04/25 08:40 Laboratory: Laboratory Results - last 24 hr 12/31/24 14:45: Crossmatch See Detail 01/03/25 12:13: WBC 10.2, RBC 3.01 L, Hgb 7.6 L, Hct 24.5 L, MCV 81.4, MCH 25.2 L, MCHC 31.0 L, RDW Std Deviation 43.5, RDW Coeff of Carmine 14.9 H, Plt Count 340, MPV 9.8, Immature Gran % (Auto) 0.800, Neut % (Auto) 76.1 H, Lymph % (Auto) 13.8L, Nobles % (Auto) 9.0, Eos % (Auto) 0.2, Baso % (Auto) 0.1, Absolute Neuts (auto)7.8 H, Absolute Lymphs (auto) 1.41, Nucleated RBC % 0, Sodium 137, Potassium 3.3, Chloride 101, Carbon Dioxide 23.0, Anion Gap 13, BUN 7, Creatinine 0.91, Estim Creat Clear Calc 52.35, Est GFR (MDRD) Non-Af 64, BUN/Creatinine Ratio 8.2L, Glucose 154 H, Calcium 8.7 01/04/25 08:40: WBC 8.7, RBC 2.93 L, Hgb 7.5 L, Hct 23.8 L, MCV 81.2, MCH 25.6 L, MCHC 31.5 L, RDW Std Deviation 44.2 H, RDW Coeff of Carmine 15.2 H, Plt Count 335,MPV 10.3, Immature Gran % (Auto) 0.700, Neut % (Auto) 63.7, Lymph % (Auto) 23.4,Nobles % (Auto) 10.3 H, Eos % (Auto) 1.6, Baso % (Auto) 0.3, Absolute Neuts (auto)5.5, Absolute Lymphs (auto) 2.03, Nucleated RBC % 0, Sodium 140, Potassium 3.5, Chloride 106, Carbon Dioxide 24.0, Anion Gap 10, BUN 7, Creatinine 0.90, Estim Creat Clear Calc 53.00, Est GFR (MDRD) Non-Af 65, BUN/Creatinine Ratio 7.4 L, Glucose 84, Calcium 8.9 D/C Instructions Discharge Diet: No restrictions Discharge Activity: Return to Normal Activity Call your doctor if you observe: Fever of 101 or Higher, Shortness of breath, Fainting spells and Chest pain DC O2, CPAP, BIPAP Needs Home O2 Discharge instructions: No Meaningful Use Info Meaningful Use Meaningful Use Diagnoses (Choose all that apply): None applicable Ischemic Stroke Statin Dosing Therapy Reference: STATIN DOSE THERAPY REFERENCE: * Patients > 75 years receive moderate or high dose statin therapy. * Patients 75 years or YOUNGER should receive HIGH intensity statin dose unless contraindicated. You will be required to document reason for non-treatment if statin daily dose does not meet guidelines. HIGH DOSE STATIN THERAPY DAILY Atorvastatin > than or = to 40 mg Rosuvastatin > than or = to 20 mg Amlodipine + Atorvastatin > than or = to 2.5/40 mg Ezetimibe + Simvastatin 10/80 mg Simvastatin 80mg Discharge Plan Admission Admit Date/Time: 12/31/24 14:34 Attending Provider: Carrillo Strong Primary Care Provider: Marika Park Consulting Providers: Myranda Shirley Discharge Orders/Prescriptions Prescriptions: New polysaccharide iron complex [Ferrex 150] 150 mg iron Capsule 150 mg PO DAILY Qty: 90 0RF pantoprazole [Protonix] 40 mg tablet,delayed release (DR/EC) 40 mg PO DAILY Qty: 90 0RF Continued magnesium oxide 200 mg magnesium tablet 200 mg PO DAILY multivitamin Capsule 1 cap PO DAILY triamterene-hydrochlorothiazid 37.5-25 mg tablet 1 tab PO QODAY coenzyme Q10 10 mg capsule 10 mg PO ONCE levothyroxine 112 mcg tablet 112 mcg PO DAILY cholecalciferol (vitamin D3) 50 mcg (2,000 unit) tablet 50 mcg PO DAILY (DME) spacer See Rx Instructions .ROUTE .MEDSUPPLY Qty: 1 0RF Rx Instructions: As directed fluticasone propion-salmeterol [Advair HFA] 230-21 mcg/actuation HFA aerosol inhaler 2 inh inhalation BID Qty: 3 3RF conjugated estrogens 1 DOSE cream 1 dose vaginal .COMPLEX Patient Comments: ONLY USES WHEN DRYNESS OCCURS Rx Instructions: 1 dose vaginally BI-WEEKLY; losartan 100 mg tablet 100 mg PO DAILY triamterene-hydrochlorothiazid 37.5-25 mg tablet 2 tab PO QODAY Probiotic 3 billion cell capsule 3,000 mmu cells PO DAILY Patient Comments: pt unsure of dosage Rx Instructions: administer with a meal (DME) spacer See Rx Instructions .ROUTE .MEDSUPPLY Qty: 1 0RF Rx Instructions: As directed metoprolol succinate 50 mg tablet extended release 24 hr 50 mg PO BID 90 Days Qty: 180 3RF Rx Instructions: This is a dose increase Held Eliquis 5 MG tablet 5 mg PO BID Hold Instructions: Resume on 01/14/25. Referrals / Follow Up: Marika Park MD [Primary Care Provider] - Within 2 Weeks Disposition Disposition (needs filled in before D/C Order can be placed): Home, Self Care 01/04/25 0949 <Electronically signed by Carrillo Strong MD> Cosigner Signature (if applicable): CC: Dr. Carrillo Strong MD; Dr. Marika Park MD~ Signed [facility] Work Phone: [phone] [phone] Discharge summary [facility] Medical Records Department [address] [place] [address] Discharge Summary 01/04/25 0941 MR#: [id number] Acct: [id number] Name: MARIETTA TEMPLE Rep #:[id number] : 1945 79 From: Carrillo Strong MD PCP: Dr. Marika Park MD Status:[place] Location: [place] [address] Providers Date of Admission: 12/31/24 Date of Discharge: 01/04/25 Primary Care Physician: Dr. Marika Park MD Consultations 12/31/24 15:09 Consult: Gastroenterology Routine Consulting Provider: [facility] Reason for Consult: GI bleed EMERGENT Consult: No MD Notified: Yes Date Notified: 12/31/24 Time Notified: 14:36 Method of Notification: ED Physician Initiated Reason For Visit: UPPER GI BLEED Diagnosis Discharge Diagnosis (1) Melena: Status: Acute Code(s): K92.1 - Melena Plan Patient is an 79-year-old lady admitted with GI bleed?melena with associated fatigue 1.Acute GI bleed ? Suspected to be secondary to upper GI bleed exacerbated by the use of apixaban. Patient hemoglobin on admission was 5.8. Admitted to a monitored bedpatient was transfused with 2 unit PRBC and. Eliquis held started on Protonix drip following a bolus. Consult placed to GI for endoscopy ? 01/02/2025; patient underwent EGD by Dr. 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 Biopsied. - Small hiatal hernia. - Gastric lipoma. - Mucosal changes in the duodenum. Biopsied. Recommendations : - [facility]. - Clear liquid diet. - Continue present medications. - Await pathology results. - Prep for colonoscopy ? Patient scheduled to undergo colonoscopy ? 01/03/2025; patient underwent colonoscopy the day prior. Official report pending. Repeated H&H this a.m. 01/04/2025 7: Patient colonoscopy demonstrated multiple small and large mouth diverticula found in the rectosigmoid colon, sigmoid colon and descending colon as well as splenic and descending colon redblood was found in the cecum. Patient was also noted to have 2 large localized angiodysplastic lesion with bleeding in the cecum. Coagulation for hemostasis using heater probe was successful. For location marking 1 hemostatic clip was successfully placed. 2. Anemia ? Secondary to acute blood loss anemia management as discussed above; monitoringH&H and transfuse if patient becomes symptomatic or hemoglobin falls below 7 ? 01/02/2025; patient hemoglobin up to 8.1 following blood transfusion. Will repeat H&H in a.m. 3. Paroxysmal atrial fibrillation ? Rate controlled on systemic anticoagulation with apixaban held given reasons above ? In view of above decision was made to hold patient systemic anticoagulation for a week on discharge 4. Essential hypertension ? Patient antihypertensives held on admission given relative hypotension 5. Class I obesity with BMI of 34 ? Complicating care weight loss advised 6. History of thyroid cancer status post thyroidectomy ? Patient is on replacement therapy with levothyroxine 7. Generalized osteoarthritis ? Pain meds as needed 8. DVT prophylaxis ? Chemoprophylaxis contraindicated given patient presentation Time spent in the patient's overall evaluation,decision-making process, review of diagnostic data, adjustment of management, discussion with other providers, nursing nursing and ancillary staff involved in patient's care documentation, 35 Minutes Medications at Discharge Home Medications conjugated estrogens 0.625 mg/gram vaginal cream 1 dose vaginal .COMPLEX [id number]/11/14 magnesium oxide 200 mg PO DAILY 10/24/19 multivitamin 1 cap PO DAILY 10/24/19 triamterene 37.5 mg-hydrochlorothiazide 25 mg tablet 1 tab PO QODAY 07/16/21 cholecalciferol (vitamin D3) 50 mcg (2,000 unit) tablet 50 mcg PO DAILY 01/07/23 coenzyme Q10 10 mg capsule 10 mg PO ONCE 01/07/23 levothyroxine 112 mcg tablet 112 mcg PO DAILY 01/07/23 spacer #1 ea 02/22/23 spacer #1 ea 03/21/23 lactobacillus combination no.4 3 billion cell capsule (Probiotic) 3,000 mmu cells PO DAILY supplement 08/15/24 fluticasone propionate 230 mcg-salmeterol 21 mcg/actuation HFA inhaler (Advair HFA) 2 inh inhalation BID #3 ea 09/18/24 metoprolol succinate 50 mg tablet,extended release 24 hr 50 mg PO BID 90 days #180 tabs 09/28/24 apixaban 5 mg tablet (Eliquis) 5 mg PO BID 12/31/24 Held on 01/04/25. Instructions: Resume on 01/14/25. losartan 100 mg tablet 100 mg PO DAILY 12/31/24 triamterene 37.5 mg-hydrochlorothiazide 25 mg tablet 2 tab PO QODAY 12/31/24 pantoprazole 40 mg tablet,delayed release (Protonix) 40 mg PO DAILY #90 tabs 01/04/25 polysaccharide iron complex 150 mg iron capsule (Ferrex) 150 mg PO DAILY #90 caps 01/04/25 Physical Exam Narrative GENERAL: cooperative HEENT: Atraumatic; normocephalic EYES; Anicteric, Normal Conjunctiva NECK; supple, normal thyroid, RESPIRATORY: Diminished to auscultation CARDIOVASCULAR: Regular S1 S2, GI: soft, normoactive bowel sounds, : No Renal angle tenderness; EXTREMITIES: No edema, no clubbing, MUSCULOSKELETAL: no muscle wasting NEURO: Awake; no lateralizing signs. SKIN: No Rash PSYCH; Flat affect Weight / BMI Weight Weight: 86.3 kg Body Mass Index (BMI) 32.6 ABG / Lab / Microbiology Data 01/04/25 08:40 01/04/25 08:40 Laboratory: Laboratory Results - last 24 hr 12/31/24 14:45: Crossmatch See Detail 01/03/25 12:13: WBC 10.2, RBC 3.01 L, Hgb 7.6 L, Hct 24.5 L, MCV 81.4, MCH 25.2 L, MCHC 31.0 L, RDWStd Deviation 43.5, RDW Coeff of Carmine 14.9 H, Plt Count 340, MPV 9.8, Immature Gran % (Auto) 0.800, Neut % (Auto) 76.1 H, Lymph % (Auto) 13.8L, Nobles % (Auto) 9.0, Eos % (Auto) 0.2, Baso % (Auto) 0.1, Absolute Neuts (auto)7.8 H, Absolute Lymphs (auto) 1.41, Nucleated RBC % 0, Sodium 137, Potassium 3.3, Chloride 101, Carbon Dioxide 23.0, Anion Gap 13, BUN 7, Creatinine 0.91, Estim Creat Clear Calc 52.35, Est GFR (MDRD) Non-Af 64, BUN/Creatinine Ratio 8.2L, Glucose 154 H, Calcium 8.7 01/04/25 08:40: WBC 8.7, RBC 2.93 L, Hgb 7.5 L, Hct 23.8 L, MCV 81.2, MCH 25.6 L, MCHC 31.5 L, RDW Std Deviation 44.2 H, RDW Coeff of Carmine 15.2 H, Plt Count 335,MPV 10.3, Immature Gran % (Auto) 0.700,Neut % (Auto) 63.7, Lymph % (Auto) 23.4,Nobles % (Auto) 10.3 H, Eos % (Auto) 1.6, Baso % (Auto) 0.3, Absolute Neuts (auto)5.5, Absolute Lymphs (auto) 2.03, Nucleated RBC % 0, Sodium 140, Potassium 3.5,Chloride 106, Carbon Dioxide 24.0, Anion Gap 10, BUN 7, Creatinine 0.90, Estim Creat Clear Calc 53.00, Est GFR (MDRD) Non-Af 65, BUN/Creatinine Ratio 7.4 L, Glucose 84, Calcium 8.9 D/C Instructions Discharge Diet: No restrictions Discharge Activity: Return to Normal Activity Call your doctor if you observe: Fever of 101 or Higher, Shortness of breath, Fainting spells and Chest pain DC O2, CPAP, BIPAP Needs Home O2 Discharge instructions: No Meaningful Use Info Meaningful Use Meaningful Use Diagnoses (Choose all that apply): None applicable Ischemic Stroke Statin Dosing Therapy Reference: STATIN DOSE THERAPY REFERENCE: * Patients > 75 years receive moderate or high dose statin therapy. * Patients 75 years or YOUNGER should receive HIGH intensity statin dose unless contraindicated. You will be required to document reason for non-treatment if statin daily dose does not meet guidelines. HIGH DOSE STATIN THERAPY DAILY Atorvastatin > than or = to 40 mg Rosuvastatin > than or = to 20 mg Amlodipine + Atorvastatin > than or = to 2.5/40 mg Ezetimibe + Simvastatin 10/80 mg Simvastatin 80mg Discharge Plan Admission Admit Date/Time: 12/31/24 14:34 Attending Provider: Carrillo Strong Primary Care Provider: Marika Park Consulting Providers: Myranda Shirley Discharge Orders/Prescriptions Prescriptions: New polysaccharide iron complex [Ferrex 150] 150 mg iron Capsule 150 mg PO DAILY Qty: 90 0RF pantoprazole [Protonix] 40 mg tablet,delayed release (DR/EC) 40 mg PO DAILY Qty: 90 0RF Continued magnesium oxide 200 mg magnesium tablet 200 mg PO DAILY multivitamin Capsule 1 cap PO DAILY triamterene-hydrochlorothiazid 37.5-25 mg tablet 1 tab PO QODAY coenzyme Q10 10 mg capsule 10 mg PO ONCE levothyroxine 112 mcg tablet 112 mcg PO DAILY cholecalciferol (vitamin D3) 50 mcg (2,000 unit) tablet 50 mcg PO DAILY (DME) spacer See Rx Instructions .ROUTE .MEDSUPPLY Qty: 1 0RF Rx Instructions: As directed fluticasone propion-salmeterol [Advair HFA] 230-21 mcg/actuation HFA aerosol inhaler 2 inh inhalation BID Qty: 3 3RF conjugated estrogens 1 DOSE cream 1 dose vaginal .COMPLEX Patient Comments: ONLY USES WHEN DRYNESS OCCURS Rx Instructions: 1 dose vaginally BI-WEEKLY; losartan 100 mg tablet 100 mg PO DAILY triamterene-hydrochlorothiazid 37.5-25 mg tablet 2 tab PO QODAY Probiotic 3 billion cell capsule 3,000 mmu cells PO DAILY Patient Comments: pt unsure of dosage Rx Instructions: administer with a meal (DME) spacer See Rx Instructions .ROUTE .MEDSUPPLY Qty: 1 0RF Rx Instructions: As directed metoprolol succinate 50 mg tablet extended release 24 hr 50 mg PO BID 90 Days Qty: 180 3RF Rx Instructions: This is a dose increase Held Eliquis 5 MG tablet 5 mg PO BID Hold Instructions: Resume on 01/14/25. Referrals / Follow Up: Marika Park MD [Primary Care Provider] - Within 2 Weeks Disposition Disposition (needs filled in before D/C Order can be placed): Home, Self Care 01/04/25 0984 Cosigner Signature (if applicable): CC: Dr. Carrillo Strong MD; Dr. Marika Park MD~ Signed [facility]-06-2025 [facility] Medical Records Department [address] [place] [address] Discharge Summary 01/04/25 0941 MR#: [id number] Acct: [id number] Name: MARIETTA TEMPLE Rep #: [id number] : 1945 79 From: Carrillo Strong MD PCP: Dr. Marika Park MD Status:ADM IN [id number] Prov[facility] Date of Admission: 12/31/24 Date of Discharge: 01/04/25 Primary Care Physician: Dr. Marika Park MD Consultations 12/31/24 15:09 Consult: Gastroenterology Routine Consulting Provider: [facility] Reason for Consult: GI bleed EMERGENT Consult: No MD Notified: Yes Date Notified: 12/31/24 Time Notified: 14:36 Method of Notification: ED Physician Initiated Reason For Visit: UPPER GI BLEED Diagnosis Discharge Diagnosis (1) Melena: Status: Acute Code(s): K92.1 - Melena Plan Patient is an 79-year-old lady admitted with GI bleed???melena with associated fatigue 1.Acute GI bleed ??? Suspected to be secondary to upper GI bleed exacerbated by the use of apixaban. Patient hemoglobin on admission was 5.8. Admitted to a monitored bed patient was transfused with 2 unit PRBC and. Eliquis held started on Protonix drip following a bolus. Consult placed to GI for endoscopy ??? 01/02/2025; patient underwent EGD by Dr. 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 Biopsied. - Small hiatal hernia. - Gastric lipoma. - Mucosal changes in the duodenum. Biopsied. Recommendations : - [facility]. - Clear liquid diet. - Continue present medications. - Await pathology results. - Prep for colonoscopy ??? Patient scheduled to undergo colonoscopy ??? 01/03/2025; patient underwent colonoscopy the day prior. Official report pending. Repeated H H this a.m. 01/04/2025 7: Patient colonoscopy demonstrated multiple small and large mouth diverticula found in the rectosigmoid colon, sigmoid colon and descending colon as well as splenic and descending colon red blood was found in the cecum. Patient was also noted to have 2 large localized angiodysplastic lesion with bleeding in the cecum. Coagulation for hemostasis using heater probe was successful. For location marking 1 hemostatic clip was successfully placed. 2. Anemia ??? Secondary to acute blood loss anemia management as discussed above; monitoring H H and transfuse if patient becomes symptomatic or hemoglobin falls below 7 ??? 01/02/2025; patient hemoglobin up to 8.1 following blood transfusion. Will repeat H H in a.m. 3. Paroxysmal atrial fibrillation ??? Rate controlled on systemic anticoagulation with apixaban held given reasons above ??? In view of above decision was made to hold patient systemic anticoagulation for a week on discharge 4. Essential hypertension ??? Patient antihypertensives held on admission given relative hypotension 5. Class I obesity with BMI of 34 ??? Complicating care weight loss advised 6. History of thyroid cancer status post thyroidectomy ??? Patient is on replacement therapy with levothyroxine 7. Generalized osteoarthritis ??? Pain meds as needed 8. DVT prophylaxis ??? Chemoprophylaxis contraindicated given patient presentation Time spent in the patient's overall evaluation,decision-making process, review of diagnostic data, adjustment of management, discussion with other providers, nursing nursing and ancillary staff involved in patient's care documentation, 35 Minutes Medications at Discharge Home Medications conjugated estrogens 0.625 mg/gram vaginal cream 1 dose vaginal .COMPLEX dryness 10/09/13 magnesium oxide 200 mg PO DAILY 10/24/19 multivitamin 1 cap PO DAILY 10/24/19 triamterene 37.5 mg-hydrochlorothiazide 25 mg tablet 1 tab PO QODAY 07/16/21 cholecalciferol (vitamin D3) 50 mcg (2,000 unit) tablet 50 mcg PO DAILY 01/07/23 coenzyme Q10 10 mg capsule 10 mg PO ONCE 01/07/23 levothyroxine 112 mcg tablet 112 mcg PO DAILY 01/07/23 spacer #1 ea 02/22/23 spacer #1 ea 03/21/23 lactobacillus combination no.4 3 billion cell capsule (Probiotic) 3,000 mmu cells PO DAILY supplement 08/15/24 fluticasone propionate 230 mcg-salmeterol 21 mcg/actuation HFA inhaler (Advair HFA) 2 inh inhalation BID #3 ea 09/18/24 metoprolol succinate 50 mg tablet,extended release 24 hr 50 mg PO BID 90 days #180 tabs 09/28/24 apixaban 5 mg tablet (Eliquis) 5 mg PO BID 12/31/24 Held on 01/04/25. Instructions: Resume on 01/14/25. losartan 100 mg tablet 100 mg PO DAILY 12/31/24 triamterene 37.5 mg-hydrochlorothiazide 25 mg tablet 2 tab PO QODAY 12/31/24 pantoprazole 40 mg tablet,delayed release (Protonix) 40 mg PO DAILY #90 tabs 01/04/25 polysaccharide iron complex 150 mg iron capsule (Ferrex) 150 mg PO DAILY #90 caps 01/04/25 Physical Exam Narrative GENERAL: cooperative HEENT: Atrau (more content not included)...[facility]06-05-2025 Procedure note [facility] Medical Records Department [address] [place] [address] Colonoscopy Report MR#: [id number] Acct: [id number] Name: MARIETTA TEMPLE Rep #:[id number] : 1945 79 From: Austin Jaimes DO PCP: Dr. Marika Park MD Status:AD M IN Patient Name: Marietta Temple Procedure Date: 01/02/2025 1:28 PM Date of : 1945 Age: 79 Procedure: Colonoscopy Indications: Hematochezia Providers: Austin Jaimes DO Medicines: Monitored Anesthesia Care Patient Profile: This is an 79 year old female. Refer to note in patient chart for documentation of history and physical. Last Colonoscopy: within the past 3 years. Complications: No immediate complications. Procedure: Pre-Anesthesia Assessment: - Prior to the procedure, a History and Physical was performed, and patient medications and allergies were reviewed. The patient is competent. The risks and benefits of the procedure and the sedation options and risks were discussed with the patient. All questions were answered and informed consent was obtained. Patient identification and proposed procedure were verified by the physician. Mental Status Examination: normal. Prophylactic Antibiotics: The patient does not require prophylactic antibiotics. Prior Anticoagulants: The patient has taken no anticoagulant or antiplatelet agents except for NSAID medication. ASA Grade Assessment: II - A patient with mild systemic disease. After reviewing the risks and benefits, the patient was deemed in satisfactory condition to undergo the procedure. The anesthesia plan was to use monitored anesthesia care (MAC). Immediately prior to administration of medications, the patient was re-assessed for adequacy to receive sedatives. The heart rate, respiratory rate, oxygen saturations, blood pressure, adequacy of pulmonary ventilation, and response to care were monitored throughout the procedure. The physical status of the patient was re-assessed after the procedure. After I obtained informed consent, the scope was passed under direct vision. Throughout the procedure, the patient's blood pressure, pulse, and oxygen saturations were monitored continuously. The Colonoscope was introduced through the anus and advanced to the cecum, identified by appendiceal orifice and ileocecal valve. The colonoscopy was performed without difficulty. The patient tolerated the procedure well. The quality of the bowel preparation was adequate. The terminal ileum, ileocecal valve, appendiceal orifice, and rectum were photographed. Scope In: 1:43:30 PM Scope Withdrawal Time 0 hours 20 minutes 22 seconds Scope Out: 2:08:52 PM Total Procedure Duration Time 0 hours 25 minutes 22 seconds Findings: The perianal and digital rectal examinations were normal. Multiple small and large-mouthed diverticula were found in the recto-sigmoid colon, sigmoid colon, descending colon, splenic flexure and ascending colon. Red blood was found in the cecum. 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 Coagulation for hemostasis using heater probe was successful. For location marking, one hemostatic clip was successfully placed. 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 There was no bleeding at the end of the procedure. Impression: - Diverticulosis in the recto-sigmoid colon, in the sigmoid colon, in the descending colon, at the splenic flexure and in the ascending colon. - No specimens collected. Recommendation: - Discharge patient to home. - Resume previous diet. - Continue present medications. - No repeat colonoscopy. Procedure Code(s): --- Professional --- 10576, Colonoscopy, flexible; with control of bleeding, any method 00998, Unlisted procedure, colon CPT copyright 2021 [employer]. All rights reserved. The codes documented in this report are preliminary and upon power station operator review may be revised to meet current compliance requirements. Austin Jaimes DO 01/03/2025 5:33:59 PM This report has been signed electronically. Number of Addenda: 0 Note Initiated On: 01/02/2025 1:28 PM 01/03/25 1734 Date _ Austin Jaimes DO Cosigner Signature: Date (if indicated) CC: Dr. Marika Park MD; Austin Jaimes DO ~ Date Dictated: 01/02/25 1328 Date Transcribed: Verifier Operator: RF Signed [facility]06-05-2025 Procedure note [facility] Medical Records Department [address] [place] [address] Operative Report - CC Letter MR#: [id number] Acct: [id number] Name: MARIETTA TEMPLE Rep #:[id number] : 1945 79 From: Austin Jaimes DO PCP: Dr. Marika Park MD Status:AD M IN 01/03/2025 Marika Park [address] [place] [address] Re : Colonoscopy procedure for Marietta Bartlettd Dear Dr. Park This procedure was performed on Thursday, January 02, 2025. My impressions and recommendations are as follows: Impressions : - Diverticulosis in the recto-sigmoid colon, in the sigmoid colon, in the descending colon, at the splenic flexure and in the ascending colon. - No specimens collected. Recommendations : - Discharge patient to home. - Resume previous diet. - Continue present medications. - No repeat colonoscopy. My findings are described in the full procedure note, which is enclosed. If I can be of further assistance, please feel free to contact me at . Sincerely, Austin Jaimes DO 01/03/2025 5:33:59 PM This report has been signed electronically. 01/03/25 1734 Date _ Austin Theodore Zarco Signature: Date (if indicated) CC: Dr. Carrillo Strong MD; Dr. Myranda Shirley DO; Dr. Marika Park MD ~ Date Dictated: 01/02/25 1328 Date Transcribed: Verifier Operator: RF Signed [facility]06-05-2025 Progress note Author Carrillo Strong [facility] Note Date/Time January 03, 2025 11:42 am [facility] Medical Records Department [address] [place] [id number] Progress Note - Hospitalist 01/03/25 1138 MR#: [id number] Acct: [id number] Name: MARIETTA TEMPLE Rep #:[id number] : 1945 79 From: Carrillo Strong MD PCP: Dr. Marika Park MD Status:AD M IN Location: [place] [address] Reason for Visit Reason for Visit: Diagnoses Anemia, unspecified (12/31/24) Melena (12/31/24) Gastrointestinal hemorrhage, unspecified (12/31/24) Other forms of dyspnea (12/31/24) Weakness (12/31/24) Unspecified adverse effect of drug or medicament, initial encounter (12/31/24) [facility] (current) use of anticoagulants (12/31/24) Personal history of other diseases of the circulatory system (12/31/24) Subjective Subjective patient underwent colonoscopy the day prior. Official report pending. RepeatedH&H this a.m. Objective Data Objective Data Vital Signs: Vital Signs Temp Pulse Resp BP Pulse Ox O2 Del Method 97.7 F L 86 14 126/49 H 98 Room Air 01/03/25 09:00 01/03/25 09:41 01/03/25 09:00 01/03/25 09:00 01/03/25 09:00 01/03/25 09:00 Oxygen Delivery Method Room Air Weight: 86.1 kg Body Mass Index (BMI) 32.5 Intake & Output: Intake and Output for Last 24 Hours 01/01/25 01/02/25 01/03/25 23:59 23:59 23:59 Intake Total 926.83 / 926.83 348.92 / 348.92 100 / 100 Balance 926.83 / 926.83 348.92 / 348.92 100 / 100 Lab / Micro Data 01/02/25 05:30 01/02/25 05:30 Rhythm Strip Rhythm Strip: Sinus Rhythm Rate: 75 Ectopy: None Physical Exam Narrative GENERAL: cooperative HEENT: Atraumatic; normocephalic EYES; Anicteric, Normal Conjunctiva NECK; supple, normal thyroid, RESPIRATORY: Diminished to auscultation CARDIOVASCULAR: Regular S1 S2, GI: soft, normoactive bowel sounds, : No Renal angle tenderness; EXTREMITIES: No edema, no clubbing, MUSCULOSKELETAL: no muscle wasting NEURO: Awake; no lateralizing signs. SKIN: No Rash PSYCH; Flat affect Assessment & Plan Assessment/Plan (1) Melena: PLAN: Plan Patient is an 79-year-old lady admitted with GI bleed?melena with associated fatigue 1.Acute GI bleed ? Suspected to be secondary to upper GI bleed exacerbated by the use of apixaban. Patient hemoglobin on admission was 5.8. Admitted to a monitored bedpatient was transfused with 2 unit PRBC and. Eliquis held started on Protonix drip following a bolus. Consult placed to GI for endoscopy ? 01/02/2025; patient underwent EGD by Dr. 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 Biopsied. - Small hiatal hernia. - Gastric lipoma. - Mucosal changes in the duodenum. Biopsied. Recommendations : - [facility]. - Clear liquid diet. - Continue present medications. - Await pathology results. - Prep for colonoscopy ? Patient scheduled to undergo colonoscopy ? 01/03/2025; patient underwent colonoscopy the day prior. Official report pending. Repeated H&H this a.m. 2. Anemia ? Secondary to acute blood loss anemia management as discussed above; monitoringH&H and transfuse if patient becomes symptomatic or hemoglobin falls below 7 ? 01/02/2025; patient hemoglobin up to 8.1 following blood transfusion. Will repeat H&H in a.m. 3. Paroxysmal atrial fibrillation ? Rate controlled on systemic anticoagulation with apixaban held given reasons above 4. Essential hypertension ? Patient antihypertensives held on admission given relative hypotension 5. Class I obesity with BMI of 34 ? Complicating care weight loss advised 6. History of thyroid cancer status post thyroidectomy ? Patient is on replacement therapy with levothyroxine 7. Generalized osteoarthritis ? Pain meds as needed 8. DVT prophylaxis ? Chemoprophylaxis contraindicated given patient presentation Time spent in the patient's overall evaluation,decision-making process, review of diagnostic data, adjustment of management, discussion with other providers, nursing nursing and ancillary staff involved in patient's care documentation, 36 Minutes Charges/Coding Visit Charges Inpatient E&M: 22818 Subs Hosp L2 01/03/25 1142 <Electronically signed by Carrillo Strong MD> Cosigner Signature (if applicable): CC: ~ Signed [facility] Work Phone: 1(294) 450-869706-05-2025 Progress note [facility] Medical Records Department [address] [place] [address] Progress Note - Hospitalist 01/03/25 1138 MR#: [id number] Acct: [id number] Name: MARIETTA TEMPLE Rep #:[id number] : 1945 79 From: Carrillo Strong MD PCP: Dr. Marika Park MD Status:AD M IN Location: [place] [address] Reason for Visit Reason for Visit: Diagnoses Anemia, unspecified (12/31/24) Melena (12/31/24) Gastrointestinal hemorrhage, unspecified (12/31/24) Other forms of dyspnea (12/31/24) Weakness (12/31/24) Unspecified adverse effect of drug or medicament, initial encounter (12/31/24) [facility] (current) use of anticoagulants (12/31/24) Personal history of other diseases of the circulatory system (12/31/24) Subjective Subjective patient underwent colonoscopy the day prior. Official report pending. RepeatedH&H this a.m. Objective Data Objective Data Vital Signs: Vital Signs Temp Pulse Resp BP Pulse Ox O2 Del Method 97.7 F L 86 14 126/49 H 98 Room Air 01/03/25 09:00 01/03/25 09:41 01/03/25 09:00 01/03/25 09:00 01/03/25 09:00 01/03/25 09:00 Oxygen Delivery Method Room Air Weight: 86.1 kg Body Mass Index (BMI) 32.5 Intake & Output: Intake and Output for Last 24 Hours 01/01/25 01/02/25 01/03/25 23:59 23:59 23:59 Intake Total 926.83 / 926.83 348.92 / 348.92 100 / 100 Balance 926.83 / 926.83 348.92 / 348.92 100 / 100 Lab / Micro Data 01/02/25 05:30 01/02/25 05:30 Rhythm Strip Rhythm Strip: Sinus Rhythm Rate: 75 Ectopy: None Physical Exam Narrative GENERAL: cooperative HEENT: Atraumatic; normocephalic EYES; Anicteric, Normal Conjunctiva NECK; supple, normal thyroid, RESPIRATORY: Diminished to auscultation CARDIOVASCULAR: Regular S1 S2, GI: soft, normoactive bowel sounds, : No Renal angle tenderness; EXTREMITIES: No edema, no clubbing, MUSCULOSKELETAL: no muscle wasting NEURO: Awake; no lateralizing signs. SKIN: No Rash PSYCH; Flat affect Assessment & Plan Assessment/Plan (1) Melena: PLAN: Plan Patient is an 79-year-old lady admitted with GI bleed?melena with associated fatigue 1.Acute GI bleed ? Suspected to be secondary to upper GI bleed exacerbated by the use of apixaban. Patient hemoglobin on admission was 5.8. Admitted to a monitored bedpatient was transfused with 2 unit PRBC and. Eliquis held started on Protonix drip following a bolus. Consult placed to GI for endoscopy ? 01/02/2025; patient underwent EGD by Dr. 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 Biopsied. - Small hiatal hernia. - Gastric lipoma. - Mucosal changes in the duodenum. Biopsied. Recommendations : - [facility]. - Clear liquid diet. - Continue present medications. - Await pathology results. - Prep for colonoscopy ? Patient scheduled to undergo colonoscopy ? 01/03/2025; patient underwent colonoscopy the day prior. Official report pending. Repeated H&H this a.m. 2. Anemia ? Secondary to acute blood loss anemia management as discussed above; monitoringH&H and transfuse if patient becomes symptomatic or hemoglobin falls below 7 ? 01/02/2025; patient hemoglobin up to 8.1 following blood transfusion. Will repeat H&H in a.m. 3. Paroxysmal atrial fibrillation ? Rate controlled on systemic anticoagulation with apixaban held given reasons above 4. Essential hypertension ? Patient antihypertensives held on admission given relative hypotension 5. Class I obesity with BMI of 34 ? Complicating care weight loss advised 6. History of thyroid cancer status post thyroidectomy ? Patient is on replacement therapy with levothyroxine 7. Generalized osteoarthritis ? Pain meds as needed 8. DVT prophylaxis ? Chemoprophylaxis contraindicated given patient presentation Time spent in the patient's overall evaluation,decision-making process, review of diagnostic data, adjustment of management, discussion with other providers, nursing nursing and ancillary staff involved in patient's care documentation, 36 Minutes Charges/Coding Visit Charges Inpatient E&M: 12045 Subs Hosp L2 01/03/25 1142 Cosigner Signature (if applicable): CC: ~ Signed [facility]06-04-2025 Consult note Author Van Zamarripa [facility] Note Date/Time January 02, 2025 2:20p m [facility] Medical Records Department [address] [place] [address] Anesthesia Postop Eval I 01/02/25 1419 MR#: [id number] Acct: [id number] Name: MARIETTA TEMPLE Rep #:[id number] : 1945 79 From: Van Zamarripa PCP: Dr. Marika Park MD Status:AD M IN Y Race: C Location: [place] [address] 0-1 Anesthesia: Postop Eval I Current Vital Signs Temperature: 98.7 F Pulse Rate: 72 Blood Pressure: 119/54 Respiratory Rate: 16 Pulse Ox: 100 Oxygen Delivery Method: Room Air Assessment Airway patent: Yes Spontaneous unlabored respirations: Yes Mental status: Awake and Calm nausea: No Vomiting: No Anesthesia Complication: No Fluid Hydration Crystalloid volume administer (ml): 800 Total IV fluid infused: 800 Progress Note Anesthesia document: Postop Eval 1 completed: Yes 01/02/25 1420 <Electronically signed by Van Zamarripa > Date _ Van Lawignnamrata Signature: Date CC: ~ Signed [facility] Work Phone: 1(336) 841-978506-04-2025 Progress note Author Austin Jaimes [facility] Note Date/Time January 02, 2025 1:22p m [facility] Medical Records Department [address] [facility] [place] [address] Progress Note 01/02/25 1321 MR#: [id number] Acct: [id number] Name: MARIETTA TEMPLE Rep #:[id number] : 1945 79 From: Austin Jaimes DO PCP: Dr. Marika Park MD Status:AD M IN Location: [place] [address] Progress Note Patient completed a prep without any problems. She is for colonoscopy today. Physical Exam Const alert, oriented x3, no apparent distress and healthy appearing General Appearance: cooperative GI normal to inspection, nondistended, normoactive bowel sounds, soft to palpation,non-tender and non-distended Percussion: normal to percussion Rectal Exam: deferred Assessment & Plan Assessment/Plan (1) GIB (gastrointestinal bleeding): PLAN: 79-year-old on Eliquis comes in with melanotic stools discovered to have hemoglobin of 5.8. Likely upper GI bleed versus small bowel bleed versus lower GI bleed. She should undergo an upper endoscopy. She was explained alternatives, risk and benefits including withstanding bleeding, pressure, subs,perforation, need for charge and . Have an ASA of 3. PLAN: Plan 01/01/2025-all labs reviewed and patient questions and concerns were answered prior to the procedure. She was explained alternatives, risk and benefits include not withstanding bleeding, infection, sepsis, perforation, need for urgent . She will have an ASA of 3. 01/02/2025-patient completed her prep. Follow-up hemoglobin has improved with blood transfusion. She had no bleeding with the prep. She will undergo colonoscopy. She was explained alternatives, risk and benefits include understanding bleeding, infection, sepsis, perforation, need for surgery . She will have an ASA of 3. Visit Charges Inpatient E&M: 08550 Subs Hosp L2 01/02/25 1322 <Electronically signed by Austin Jaimes DO> Austin Jaimes DO Cosgaurang Signature (if applicable): CC: ~ Signed [facility] Work Phone: 1(125) 621-926606-04-2025 Consult note [facility] Medical Records Department [address] [place] [address] Anesthesia Postop Eval I 01/02/25 1419 MR#: [id number] Acct: [id number] Name: MARIETTA TEMPLE Anitra Rep #:[id number] : 1945 79 From: Van Zamarripa PCP: Dr. Marika Park MD Status:AD M IN Y Race: C Location: [place] [address] 0- Anesthesia: Postop Eval I Current Vital Signs Temperature: 98.7 F Pulse Rate: 72 Blood Pressure: 119/54 Respiratory Rate: 16 Pulse Ox: 100 Oxygen Delivery Method: Room Air Assessment Airway patent: Yes Spontaneous unlabored respirations: Yes Mental status: Awake and Calm nausea: No Vomiting: No Anesthesia Complication: No Fluid Hydration Crystalloid volume administer (ml): 800 Total IV fluid infused: 800 Progress Note Anesthesia document: Postop Eval 1 completed: Yes 01/02/25 1420 > Date _ Van Marion Signature: Date CC: ~ Signed [facility]06-04-2025 Consult note Author Power Monroe [facility] Note Date/Time January 02, 2025 11:46 am [facility] Medical Records Department [address] [place] [address] Pre-Anesthesia Evaluation 01/02/25 1140 MR#: [id number] Acct: [id number] Name: MARIETTA TEMPLE Rep #:[id number] : 1945 79 From: Power Monroe MD PCP: Dr. Marika Park MD Status:AD M IN Y Race: C Location: [place] [address] 0-1 ASA Classification* ASA Classification ASA Classification: 3 Assessment & Plan Anesthesia* Anesthesia Assessment Anesthesia Assessment: Discussed sedation and/or anesthesia options, risks, benefits, and alternatives with patient/parents/legal guardian/POA. Questions invited. The patient/parents/legal guardian/POA seems to understand and agrees to proceedwith anesthesia plan. Reviewed the physical assessment, medical history, allergy history and patient home medications list prior to surgery/procedure/anesthetic and documented any changes. Performed airway and anesthesia risk assessments. Anesthesia Type Anesthesia Type: General History Source History Obtained from:: Patient and Chart Anesthesia Focused Assessment* Temperature: 97.7 F Pulse Rate: 66 Blood Pressure: 108/55 Respiratory Rate: 16 Pulse Ox: 100 Airway Assessment Mouth opens: >3 cm Mallampati Score: II Teeth Condition: Dentures and Upper Neck Range of motion (ROM): Limited ROM Focused Labs Anesthesia Preop lab: CBC WBC 8.9 K/mm3 (4.4-11.0) 01/02/25 05:30 01/02/25 RBC 3.16 M/mm3 (4.2-5.4) L 01/02/25 05:01/02/25 Hgb 8.1 g/dL (12.0-15.0) L 01/02/25 05:01/02/25 Hct 25.2 % (37-47) L 01/02/25 05:30 01/02/25 Plt Count 321 K/mm3 (150-450) 01/02/25 05:30 01/02/25 CHEMISTRY Potassium 3.3 mmol/L (3.3-5.1) 01/02/25 05:30 01/02/25 Sodium 139 mmol/L (133-145) 01/02/25 05:30 01/02/25 Magnesium 2.0 mg/dL (1.5-2.2) 01/01/25 05:25 01/01/25 Phosphorus 3.3 mg/dL (2.7-4.5) 01/01/25 05:25 01/01/25 BUN 11 mg/dL (4-19) 01/02/25 05:30 01/02/25 Creatinine 0.91 mg/dL (0.70-1.20) 01/02/25 05:30 01/02/25 Glucose 104 mg/dL (70-99) H 01/02/25 05:30 01/02/25 TSH 4.640 uIU/mL (0.358-3.740) H 08/15/24 05:06 COAG PT 14.0 SECONDS (11.7-14.9) 01/02/25 05:30 Pre-Assessment Diagnosis/Proposed Procedure Planned Operative Procedure(s): Esophagogastroduodenoscopy with possible cauteryand/or injection therapy. Anesthesia History Anesthesia History - collateral clerk: Anesthesia History - collateral clerk Hx Hospitalization Any Problems With Anesthesia No 01/01/25 22:49 Cholinesterase deficiency No 01/01/25 22:49 You/Your Family Experience No 01/01/25 22:49 fever (hyperthermia) with Relationship Recent Exposure to Contagious No 01/01/25 22:49 Disease Does patient have nerve No 01/01/25 22:49 stimulator Patient instructed to have No 01/01/25 22:49 device shut off --Does patient have Pacemaker No 01/01/25 14:16 or ICD? When Was Last Pacemaker Check QUESTION #4 FULL TEXT: You/Your Family Experience fever (hyperthermia) with Anesthesia Last Oral Intake Last Oral intake: Last Oral Intake NPO since 00:00 01/02/25 09:17 Meds taken in AM with sips of No 01/02/25 09:17 water? Meds patient instructed to 50mg metoprolol at 0839 01/01/25 14:16 take am of surgery PONV PONV - collateral clerk: PONV - collateral clerk Female HX of Motion Sickness HX of N/V After Surgery Non-Smoker Duration of Surgery greater than 60 minutes Number of Risk Factors PONV Score Height & Weight Height & Weight: Anesthesia: Height & Weight Height 5 ft 4 in 01/02/25 11:11 Weight: 86.7 kg 01/02/25 11:11 Body Mass Index (BMI) 32.8 01/02/25 09:17 Respiratory Assessment Respiratory Assessment - collateral clerk: Respiratory Tract Infection Hx - collateral clerk Hx Respiratory Tract Infection No 01/01/25 22:49 STOP Sleep Apnea STOP Sleep Apnea - collateral clerk: STOP Sleep Apnea - collateral clerk Hx Hypertension Yes 01/01/25 12:10 Hx Sleep Apnea No 12/31/24 15:09 CPAP BIPAP Do you snore loudly (louder No 12/31/24 15:09 than talking or can be heard Do you often feel tired/ No 12/31/24 15:09 fatigued/ sleepy during daytime? Has anyone observed you stop No 12/31/24 15:09 breathing during sleep? STOP Results Negative 01/01/25 16:35 QUESTION #5 FULL TEXT : Do you snore loudly (louder than talking or can be heard through closed doors)? Tobacco Use History Tobacco Use History - collateral clerk: Tobacco Use History - collateral clerk Tobacco Use Smoking Status Former smoker 12/31/24 15:09 Hx Tobacco Use No 12/31/24 15:09 Years Smoking Packs Smoked per Day Smoking Cessation Date was No - quit smoking greater 12/31/24 15:09 within the last 15 years than 15 years ago Hx Smoking Cessation Date 12/28/99 12/31/24 15:09 Hx Smoking Cessation No 12/31/24 15:09 Counseling Hematologic Medial History Hematologic Hx - collateral clerk: Hematologic Medical Hx - bull bucker Hx of Blood Transfusion No 12/31/24 15:09 Hx of Transfusion in last 3 No 12/31/24 15:09 Months Date of Last Transfusion (if within last 3 months) Ever experience any problems No 12/31/24 15:09 with transfusion(s)? Specify any problems Hx of Preganancy in last 3 No 12/31/24 15:09 Months Nurse Filling Out Transfusion DEJAH 12/31/24 15:09 & Questions: Date: 12/31/24 12/31/24 15:09 Time: 16:25 12/31/24 15:09 Patient unable to answer at this time (ie. confused, unrespo /Reproduction History /Reproductive History - collateral clerk: /Reproductive Hx- collateral clerk Hx Now No 01/01/25 22:49 Gestational Age (in weeks): EDC: Hx Hx Para Hx Section SAB No 01/01/25 22:49 Active Medications Active Medications: Current Medications Generic Name Dose Route Start Last Admin Trade Name Freq PRN Reason Stop Dose Admin Acetaminophen 650 mg 12/31/24 15:09 Acetaminophen 325 Mg Tablet PO Q6H PRN PRN Pain 1-10 Or Fever >100.7 Albuterol Sulfate 2.5 mg 12/31/24 15:32 01/02/25 07:06 Albuterol 2.5 Mg/3 Ml Vial.Neb. INHALATION 2.5 mg Q6HWA.RT EDITA Administration Albuterol Sulfate 2.5 mg 12/31/24 15:09 Albuterol 2.5 Mg/3 Ml Vial.Neb. INHALATION Q2H PRN PRN SOB &/OR WHEEZING Budesonide 0.5 mg 12/31/24 15:45 01/02/25 07:07 Budesonide Respules 0.5 Mg/2 Ml Ampul.Neb. INHALATION 0.5 mg Q12H.RT EDITA Administration Cholecalciferol 50 mcg 01/01/25 10:00 01/01/25 16:27 Cholecalciferol (Vit D3) 25 Mcg Tablet (1,000 Units) PO Not Given DAILY EDITA Pantoprazole Sodium 80 mg/ 100 mls @ 10 mls/hr 12/31/24 15:09 01/02/25 11:27 Sodium Chloride CONT INF 01/03/25 15:10 0 mls/hr Q10H EDITA Infusion Sodium Chloride 250 mls @ 15 mls/hr 12/31/24 15:10 01/01/25 13:00 IV Infused .[id number] PRN Infusion Saline Flush Lactated Ringer's 1,000 mls @ 15 mls/hr 01/01/25 14:45 01/01/25 18:10 IV Infused .Q48H EDITA Infusion Lactated Ringer's 1,000 mls @ 15 mls/hr 01/02/25 11:45 IV .Q48H [facility] Levothyroxine Sodium 112 mcg 01/02/25 22:00 Levothyroxine 112 Mcg Tablet PO QHS [facility] Metoprolol Succinate 50 mg 12/31/24 22:00 01/02/25 11:33 Metoprolol(Xl)Succ 50 Mg Tablet PO Not Given BID [facility] Protocol Ondansetron HCl 4 mg 12/31/24 15:09 Ondansetron 4 Mg/2 Ml Vial IV Q8H PRN PRN NAUSEA/VOMITING Pantoprazole Sodium 40 mg 01/04/25 10:00 Pantoprazole Sodium 40 Mg Tablet PO BID [facility] Sodium Chloride 10 - 40 ml 12/31/24 15:10 01/01/25 14:29 0.9% Saline Lock 10 Ml Syringe IV 10 ml UD PRN Administration SALINE FLUSH PFSH Medical History Other nonspecific abnormal finding of lung field 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 Symptomatic menopausal or female climacteric states Vaginal enterocele, congenital or acquired Postmenopausal atrophic vaginitis Rectocele Plantar fasciitis Pain in joint, shoulder region Nontoxic multinodular goiter Indeterminate pulmonary nodules Hemorrhage of gastrointestinal tract, unspecified Cystocele, midline Benign neoplasm of colon Colon polyp Dyspnea on exertion Chest pain, unspecified Essential hypertension Ventricular ectopy Premature atrial contraction Paroxysmal atrial flutter Vision problems Thyroid cancer Skin cancer Osteoarthritis IBS (irritable bowel syndrome) Cancer Arthritis Ataxia Home Medications ?Medication ?Instructions ?Recorded ?Last Taken ?Type conjugated estrogens 0.625 mg/gram 1 dose Lolapps .Qonf PLEX dryness 10/09/13 02/08/19 History vaginal cream magnesium oxide 200 mg PO DAILY 10/24/1909/25 History multivitamin 1 cap PO DAILY 10/24/1909/25 History triamterene 37.5 1 tab PO QODAY 07/16/2109/25 History mg-hydrochlorothiazide 25 mg tablet cholecalciferol (vitamin D3) 50 50 mcg PO DAILY 12/31/24 History mcg (2,000 unit) tablet coenzyme Q10 10 mg capsule 10 mg PO ONCE 01/07/2309/25 History levothyroxine 112 mcg tablet 112 mcg PO DAILY 01/07/23 12/30/24 History spacer #1 ea 07/25/23 Unknown Rx spacer #1 ea 03/21/23 Unknown Rx lactobacillus combination no.4 3 3,000 mmu cells PO DA ASHWIN supplement 08/15/24 12/31/24 History billion cell capsule (Probiotic) fluticasone propionate 230 2 inh inhalation BID #3 ea 09/18/24 12/31/24 Rx mcg-salmeterol 21 mcg/actuation HFA inhaler (Advair HFA) metoprolol succinate 50 mg 50 mg PO BID 90 days #180 t abs 09/28/24 01/01/25 Rx tablet,extended release 24 hr apixaban 5 mg tablet (Eliquis) 5 mg PO BID 12/31/24 History losartan 100 mg tablet 100 mg PO DAILY 12/31/2409/25 History triamterene 37.5 2 tab PO QODAY 12/31/2408/25 History mg-hydrochlorothiazide 25 mg tablet Allergy/AdvReac Type Severity Reaction Status Date / Time Sulfa (Sulfonamide Allergy Rash Verified 12/31/24 10:33 Antibiotics) codeine AdvReac Nausea Verified 12/31/24 10:33 Family History Father , 1977 Alcoholism Emphysema of lung Sister , 2016 ANGINA Cancer Diabetes CVA (cerebral vascular accident) Thyroid disorder Uterine cancer Brother Cancer Diabetes Mother Diabetes Myocardial infarction Heart disease 1964-59 YEARS Hypertension Surgical History History of cholecystectomy History of thyroidectomy Hx of breast reduction, elective History of bilateral knee replacement Social History Smoking Status: Former smoker how long ago did patient quit smokin alcohol intake: never substance use type: does not use caffeine: Yes Type: coffee Number of servings: 4 and tea Review of Systems (Anesthesia) ROS Narrative System reviewed and no additional complaints, except as documented. 01/02/25 3856 <Electronically signed by Power Monroe MD> Date _ Power Monroe MD Cosigner Signature: Date CC: ~ Signed [facility] Work Phone: 1(820) 714-700506-04-2025 Progress note [facility] Medical Records Department [address] [place] [address] Progress Note 01/02/25 1321 MR#: [id number] Acct: [id number] Name: MARIETTA TEMPLE Rep #:[id number] : 1945 79 From: Austin Friend DO PCP: Dr. Marika Park MD Status:AD M IN Location: [place] [address] Progress Note Patient completed a prep without any problems. She is for colonoscopy today. Physical Exam Const alert, oriented x3, no apparent distress and healthy appearing General Appearance: cooperative GI normal to inspection, nondistended, normoactive bowel sounds, soft to palpation,non-tender and non-distended Percussion: normal to percussion Rectal Exam: deferred Assessment & Plan Assessment/Plan (1) GIB (gastrointestinal bleeding): PLAN: 79-year-old on Eliquis comes in with melanotic stools discovered to have hemoglobin of 5.8. Likely upper GI bleed versus small bowel bleed versus lower GI bleed. She should undergo an upper endoscopy. She was explained alternatives, risk and benefits including withstanding bleeding, pressure,subs,perforation, need for charge and . Have an ASA of 3. PLAN: Plan 01/01/2025-all labs reviewed and patient questions and concerns were answered prior to the procedure.She was explained alternatives, risk and benefits include not withstanding bleeding, infection, sepsis, perforation, need for urgent . She will have an ASA of 3. 01/02/2025-patient completed her prep. Follow-up hemoglobin has improved with blood transfusion. She had no bleeding with the prep. She will undergo colonoscopy. She was explained alternatives, risk and benefits include understanding bleeding, infection, sepsis, perforation, need for surgery . She will have an ASA of 3. Visit Charges Inpatient E&M: 60011 Subs Hosp L2 01/02/25 1322 Austin Friend DO Aniigner Signature (if applicable): CC: ~ Signed [facility]06-04-2025 Progress note Author Carrillo Strong [facility] Note Date/Time January 02, 2025 11:12 am [facility] Medical Records Department [address] [place] [address] Progress Note - Hospitalist 01/02/25 0735 MR#: [id number] Acct: [id number] Name: MARIETTA TEMPLE Rep #:[id number] : 1945 79 From: Carrillo Strong MD PCP: Dr. Marika Park MD Status:AD M IN Location: [place] [address] Reason for Visit Reason for Visit: Diagnoses Anemia, unspecified (12/31/24) Melena (12/31/24) Gastrointestinal hemorrhage, unspecified (12/31/24) Other forms of dyspnea (12/31/24) Weakness (12/31/24) Unspecified adverse effect of drug or medicament, initial encounter (12/31/24) [facility] (current) use of anticoagulants (12/31/24) Personal history of other diseases of the circulatory system (12/31/24) Subjective Subjective Patient underwent EGD the day prior findings and recommendation as below. Patient currently being prepped for colonoscopy Objective Data Objective Data Vital Signs: Vital Signs Temp Pulse Resp BP Pulse Ox O2 Del Method 98 F 69 16 118/48 L 98 Room Air 01/02/25 04:32 01/02/25 07:07 01/02/25 07:07 01/02/25 04:32 01/02/25 07:07 01/02/25 07:07 Oxygen Delivery Method Room Air Weight: 86.7 kg Body Mass Index (BMI) 32.8 Intake & Output: Intake and Output for Last 24 Hours 12/31/24 01/01/25 01/02/25 23:59 23:59 23:59 Intake Total 879.5 / 1329.5 926.83 / 926.83 98.17 / 98.17 Balance 879.5 / 1329.5 926.83 / 926.83 98.17 / 98.17 Lab / Micro Data 01/02/25 05:30 01/02/25 05:30 Labs: Laboratory Results - last 24 hr 01/01/25 11:39: Hgb 8.3 L, Hct 26.0 L 01/02/25 05:30: WBC 8.9, RBC 3.16 L, Hgb 8.1 L, Hct 25.2 L, MCV 79.7 L, MCH 25.6L, MCHC 32.1, RDW Std Deviation 43.6, RDW Coeff of Carmine 14.8 H, Plt Count 321, MPV 9.5, Immature Gran % (Auto) 0.300, Neut % (Auto) 69.4, Lymph % (Auto) 18.9 L, Nobles % (Auto) 9.2, Eos % (Auto) 2.0, Baso % (Auto) 0.2, Absolute Neuts (auto) 6.2, Absolute Lymphs (auto) 1.68, Nucleated RBC % 0, PT 14.0, INR 1.1, Sodium 139, Potassium 3.3, Chloride 102, Carbon Dioxide 25.0, Anion Gap 12, BUN 11, Creatinine 0.91, Estim Creat Clear Calc 53.44, Est GFR (MDRD) Non-Af 64, BUN/Creatinine Ratio 11.8, Glucose 104 H, Calcium 8.6, Total Bilirubin 0.39, Direct Bilirubin 0.15, AST 22, ALT 20, Alkaline Phosphatase 81, Total Protein 6.3, Albumin 3.6, Globulin 2.7 Rhythm Strip Rhythm Strip: Sinus Rhythm Rate: 75 Ectopy: None Physical Exam Narrative GENERAL: cooperative HEENT: Atraumatic; normocephalic EYES; Anicteric, Normal Conjunctiva NECK; supple, normal thyroid, RESPIRATORY: Diminished to auscultation CARDIOVASCULAR: Regular S1 S2, GI: soft, normoactive bowel sounds, : No Renal angle tenderness; EXTREMITIES: No edema, no clubbing, MUSCULOSKELETAL: no muscle wasting NEURO: Awake; no lateralizing signs. SKIN: No Rash PSYCH; Flat affect Assessment & Plan Assessment/Plan (1) Melena: PLAN: Plan Patient is an 79-year-old lady admitted with GI bleed?melena with associated fatigue 1.Acute GI bleed ? Suspected to be secondary to upper GI bleed exacerbated by the use of apixaban. Patient hemoglobin on admission was 5.8. Admitted to a monitored bedpatient was transfused with 2 unit PRBC and. Eliquis held started on Protonix drip following a bolus. Consult placed to GI for endoscopy ? 01/02/2025; patient underwent EGD by Dr. 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 Biopsied. - Small hiatal hernia. - Gastric lipoma. - Mucosal changes in the duodenum. Biopsied. Recommendations : - [facility]. - Clear liquid diet. - Continue present medications. - Await pathology results. - Prep for colonoscopy ? Patient scheduled to undergo colonoscopy 2. Anemia ? Secondary to acute blood loss anemia management as discussed above; monitoringH&H and transfuse if patient becomes symptomatic or hemoglobin falls below 7 ? 01/02/2025; patient hemoglobin up to 8.1 following blood transfusion. Will repeat H&H in a.m. 3. Paroxysmal atrial fibrillation ? Rate controlled on systemic anticoagulation with apixaban held given reasons above 4. Essential hypertension ? Patient antihypertensives held on admission given relative hypotension 5. Class I obesity with BMI of 34 ? Complicating care weight loss advised 6. History of thyroid cancer status post thyroidectomy ? Patient is on replacement therapy with levothyroxine 7. Generalized osteoarthritis ? Pain meds as needed 8. DVT prophylaxis ? Chemoprophylaxis contraindicated given patient presentation Time spent in the patient's overall evaluation,decision-making process, review of diagnostic data, adjustment of management, discussion with other providers, nursing nursing and ancillary staff involved in patient's care documentation, 52Minutes Charges/Coding Visit Charges Inpatient E&M: 69513 Subs Hosp L2 01/02/25 1112 <Electronically signed by Carrillo Strong MD> Cosigner Signature (if applicable): CC: ~ Signed [facility] Work Phone: 1(330) [phone] Consult note [facility] Medical Records Department [address] [place] [address] Pre-Anesthesia Evaluation 01/02/25 1140 MR#: [id number] Acct: [id number] Name: MARIETTA TEMPLE Rep #:[id number] : 1945 79 From: Power Monroe MD PCP: Dr. Marika Park MD Status:AD M IN Y Race: C Location: [place] [address] 0-1 ASA Classification* ASA Classification ASA Classification: 3 Assessment & Plan Anesthesia* Anesthesia Assessment Anesthesia Assessment: Discussed sedation and/or anesthesia options, risks, benefits, and alternatives with patient/parents/legal guardian/POA. Questions invited. The patient/parents/legal guardian/POA seems to understand and agrees to proceedwith anesthesia plan. Reviewed the physical assessment, medical history, allergy history and patient home medications list prior to surgery/procedure/anesthetic and documented any changes. Performed airway and anesthesia risk assessments. Anesthesia Type Anesthesia Type: General History Source History Obtained from:: Patient and Chart Anesthesia Focused Assessment* Temperature: 97.7 F Pulse Rate: 66 Blood Pressure: 108/55 Respiratory Rate: 16 Pulse Ox: 100 Airway Assessment Mouth opens: >3 cm Mallampati Score: II Teeth Condition: Dentures and Upper Neck Range of motion (ROM): Limited ROM Focused Labs Anesthesia Preop lab: CBC WBC 8.9 K/mm3 (4.4-11.0) 01/02/25 05:30 01/02/25 RBC 3.16 M/mm3 (4.2-5.4) L 01/02/25 05:30 01/02/25 Hgb 8.1 g/dL (12.0-15.0) L 01/02/25 05:30 01/02/25 Hct 25.2 % (37-47) L 01/02/25 05:30 01/02/25 Plt Count 321 K/mm3 (150-450) 01/02/25 05:30 01/02/25 CHEMISTRY Potassium 3.3 mmol/L (3.3-5.1) 01/02/25 05:30 01/02/25 Sodium 139 mmol/L (133-145) 01/02/25 05:30 01/02/25 Magnesium 2.0 mg/dL (1.5-2.2) 01/01/25 05:25 01/01/25 Phosphorus 3.3 mg/dL (2.7-4.5) 01/01/25 05:25 01/01/25 BUN 11 mg/dL (4-19) 01/02/25 05:30 01/02/25 Creatinine 0.91 mg/dL (0.70-1.20) 01/02/25 05:30 01/02/25 Glucose 104 mg/dL (70-99) H 01/02/25 05:30 01/02/25 TSH 4.640 uIU/mL (0.358-3.740) H 08/15/24 05:06 COAG PT 14.0 SECONDS (11.7-14.9) 01/02/25 05:30 Pre-Assessment Diagnosis/Proposed Procedure Planned Operative Procedure(s): Esophagogastroduodenoscopy with possible cauteryand/or injection therapy. Anesthesia History Anesthesia History - collateral clerk: Anesthesia History - collateral clerk Hx Hospitalization Any Problems With Anesthesia No 01/01/25 22:49 Cholinesterase deficiency No 01/01/25 22:49 You/Your Family Experience No 01/01/25 22:49 fever (hyperthermia) with Relationship Recent Exposure to Contagious No 01/01/25 22:49 Disease Does patient have nerve No 01/01/25 22:49 stimulator Patient instructed to have No 01/01/25 22:49 device shut off --Does patient have Pacemaker No 01/01/25 14:16 or ICD? When Was Last Pacemaker Check QUESTION #4 FULL TEXT: You/Your Family Experience fever (hyperthermia) with Anesthesia Last Oral Intake Last Oral intake: Last Oral Intake NPO since 00:00 01/02/25 09:17 Meds taken in AM with sips of No 01/02/25 09:17 water? Meds patient instructed to 50mg metoprolol at 0839 01/01/25 14:16 take am of surgery PONV PONV - collateral clerk: PONV - collateral clerk Female HX of Motion Sickness HX of N/V After Surgery Non-Smoker Duration of Surgery greater than 60 minutes Number of Risk Factors PONV Score Height & Weight Height & Weight: Anesthesia: Height & Weight Height 5 ft 4 in 01/02/25 11:11 Weight: 86.7 kg 01/02/25 11:11 Body Mass Index (BMI) 32.8 01/02/25 09:17 Respiratory Assessment Respiratory Assessment - collateral clerk: Respiratory Tract Infection Hx - collateral clerk Hx Respiratory Tract Infection No 01/01/25 22:49 STOP Sleep Apnea STOP Sleep Apnea - collateral clerk: STOP Sleep Apnea - collateral clerk Hx Hypertension Yes 01/01/25 12:10 Hx Sleep Apnea No 12/31/24 15:09 CPAP BIPAP Do you snore loudly (louder No 12/31/24 15:09 than talking or can be heard Do you often feel tired/ No 12/31/24 15:09 fatigued/ sleepy during daytime? Has anyone observed you stop No 12/31/24 15:09 breathing during sleep? STOP Results Negative 01/01/25 16:35 QUESTION #5 FULL TEXT : Do you snore loudly (louder than talking or can be heard through closeddoors)? Tobacco Use History Tobacco Use History - collateral clerk: Tobacco Use History - collateral clerk Tobacco Use Smoking Status Former smoker 12/31/24 15:09 Hx Tobacco Use No 12/31/24 15:09 Years Smoking Packs Smoked per Day Smoking Cessation Date was No - quit smoking greater 12/31/24 15:09 within the last 15 years than 15 years ago Hx Smoking Cessation Date 12/28/99 12/31/24 15:09 Hx Smoking Cessation No 12/31/24 15:09 Counseling Hematologic Medial History Hematologic Hx - collateral clerk: Hematologic Medical Hx - bull bucker Hx of Blood Transfusion No 12/31/24 15:09 Hx of Transfusion in last 3 No 12/31/24 15:09 Months Date of Last Transfusion (if within last 3 months) Ever experience any problems No 12/31/24 15:09 with transfusion(s)? Specify any problems Hx of Preganancy in last 3 No 12/31/24 15:09 Months Nurse Filling Out Transfusion DEJAH 12/31/24 15:09 & Questions: Date: 12/31/24 12/31/24 15:09 Time: 16:12/31/24 15:09 Patient unable to answer at this time (ie. confused, unrespo /Reproduction History /Reproductive History - collateral clerk: /Reproductive Hx- collateral clerk Hx Now No 01/01/25 22:49 Gestational Age (in weeks): EDC: Hx Hx Para Hx Section SAB No 01/01/25 22:49 Active Medications Active Medications: Current Medications Generic Name Dose Route Start Last Admin Trade Name Freq PRN Reason Stop Dose Admin Acetaminophen 650 mg 12/31/24 15:09 Acetaminophen 325 Mg Tablet PO Q6H PRN PRN Pain 1-10 Or Fever >100.7 Albuterol Sulfate 2.5 mg 12/31/24 15:32 01/02/25 07:06 Albuterol 2.5 Mg/3 Ml Vial.Neb. INHALATION 2.5 mg Q6HWA.RT EDITA Administration Albuterol Sulfate 2.5 mg 12/31/24 15:09 Albuterol 2.5 Mg/3 Ml Vial.Neb. INHALATION Q2H PRN PRN SOB &/OR WHEEZING Budesonide 0.5 mg 12/31/24 15:45 01/02/25 07:07 Budesonide Respules 0.5 Mg/2 Ml Ampul.Neb. INHALATION 0.5 mg Q12H.RT EDITA Administration Cholecalciferol 50 mcg 01/01/25 10:00 01/01/25 16:27 Cholecalciferol (Vit D3) 25 Mcg Tablet (1,000 Units) PO Not Given DAILY EDITA Pantoprazole Sodium 80 mg/ 100 mls @ 10 mls/hr 12/31/24 15:09 01/02/25 11:27 Sodium Chloride CONT INF 01/03/25 15:10 0 mls/hr Q10H EDITA Infusion Sodium Chloride 250 mls @ 15 mls/hr 12/31/24 15:10 01/01/25 13:00 IV Infused .[id number] PRN Infusion Saline Flush Lactated Ringer's 1,000 mls @ 15 mls/hr 01/01/25 14:45 01/01/25 18:10 IV Infused .Q48H EDITA Infusion Lactated Ringer's 1,000 mls @ 15 mls/hr 01/02/25 11:45 IV .Q48H EDITA Levothyroxine Sodium 112 mcg 01/02/25 22:00 Levothyroxine 112 Mcg Tablet PO QHS EDITA Metoprolol Succinate 50 mg 12/31/24 22:00 01/02/25 11:33 Metoprolol(Xl)Succ 50 Mg Tablet PO Not Given BID [facility] Protocol Ondansetron HCl 4 mg 12/31/24 15:09 Ondansetron 4 Mg/2 Ml Vial IV Q8H PRN PRN NAUSEA/VOMITING Pantoprazole Sodium 40 mg 01/04/25 10:00 Pantoprazole Sodium 40 Mg Tablet PO BID EDITA Sodium Chloride 10 - 40 ml 12/31/24 15:10 01/01/25 14:29 0.9% Saline Lock 10 Ml Syringe IV 10 ml UD PRN Administration SALINE FLUSH 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 Symptomatic menopausal or female climacteric states Vaginal enterocele, congenital or acquired Postmenopausal atrophic vaginitis Rectocele Plantar fasciitis Pain in joint, shoulder region Nontoxic multinodular goiter Indeterminate pulmonary nodules Hemorrhage of gastrointestinal tract, unspecified Cystocele, midline Benign neoplasm of colon Colon polyp Dyspnea on exertion Chest pain, unspecified Essential hypertension Ventricular ectopy Premature atrial contraction Paroxysmal atrial flutter Vision problems Thyroid cancer Skin cancer Osteoarthritis IBS (irritable bowel syndrome) Cancer Arthritis Ataxia Home Medications ?Medication ?Instructions ?Recorded ?Last Taken ?Type conjugated estrogens 0.625 mg/gram 1 dose Lolapps .COM PLEX dryness 10/09/13 02/08/19 History vaginal cream magnesium oxide 200 mg PO DAILY 10/24/1909/25 History multivitamin 1 cap PO DAILY 10/24/1909/25 History triamterene 37.5 1 tab PO QODAY 07/16/2109/25 History mg-hydrochlorothiazide 25 mg tablet cholecalciferol (vitamin D3) 50 50 mcg PO DAILY 12/31/24 History mcg (2,000 unit) tablet coenzyme Q10 10 mg capsule 10 mg PO ONCE 01/07/2309/25 History levothyroxine 112 mcg tablet 112 mcg PO DAILY 01/07/23 12/30/24 History spacer #1 ea 02/22/23 Unknown Rx spacer #1 ea 03/21/23 Unknown Rx lactobacillus combination no.4 3 3,000 mmu cells PO DA ASHWIN supplement 08/15/24 12/31/24 History billion cell capsule (Probiotic) fluticasone propionate 230 2 inh inhalation BID #3 ea 09/18/24 12/31/24 Rx mcg-salmeterol 21 mcg/actuation HFA inhaler (Advair HFA) metoprolol succinate 50 mg 50 mg PO BID 90 days #180 t abs 09/28/24 01/01/25 Rx tablet,extended release 24 hr apixaban 5 mg tablet (Eliquis) 5 mg PO BID 12/31/24 History losartan 100 mg tablet 100 mg PO DAILY 12/31/2409/25 History triamterene 37.5 2 tab PO QODAY 12/31/2408/25 History mg-hydrochlorothiazide 25 mg tablet Allergy/AdvReac Type Severity Reaction Status Date / Time Sulfa (Sulfonamide Allergy Rash Verified 12/31/24 10:33 Antibiotics) codeine AdvReac Nausea Verified 12/31/24 10:33 Family History Father , 1977 Alcoholism Emphysema of lung Sister , 2016 ANGINA Cancer Diabetes CVA (cerebral vascular accident) Thyroid disorder Uterine cancer Brother Cancer Diabetes Mother Diabetes Myocardial infarction Heart disease 1964-59 YEARS Hypertension Surgical History History of cholecystectomy History of thyroidectomy Hx of breast reduction, elective History of bilateral knee replacement Social History Smoking Status: Former smoker how long ago did patient quit smokin alcohol intake: never substance use type: does not use caffeine: Yes Type: coffee Number of servings: 4 and tea Review of Systems (Anesthesia) ROS Narrative System reviewed and no additional complaints, except as documented. 01/02/25 1146 MD> Date _ Power Lawignnamrata Signature: Date CC: ~ Signed [facility]06-04-2025 Progress note [facility] Medical Records Department [address] [place] [address] Progress Note - Hospitalist 01/02/25 0735 MR#: [id number] Acct: [id number] Name: MARIETTA TEMPLE Rep #:[id number] : 1945 79 From: Carrillo Strong MD PCP: Dr. Marika Park MD Status:AD M IN Location: [place] [address] Reason for Visit Reason for Visit: Diagnoses Anemia, unspecified (12/31/24) Melena (12/31/24) Gastrointestinal hemorrhage, unspecified (12/31/24) Other forms of dyspnea (12/31/24) Weakness (12/31/24) Unspecified adverse effect of drug or medicament, initial encounter (12/31/24) [facility] (current) use of anticoagulants (12/31/24) Personal history of other diseases of the circulatory system (12/31/24) Subjective Subjective Patient underwent EGD the day prior findings and recommendation as below. Patient currently being prepped for colonoscopy Objective Data Objective Data Vital Signs: Vital Signs Temp Pulse Resp BP Pulse Ox O2 Del Method 98 F 69 16 118/48 L 98 Room Air 01/02/25 04:32 01/02/25 07:07 01/02/25 07:07 01/02/25 04:32 01/02/25 07:07 01/02/25 07:07 Oxygen Delivery Method Room Air Weight: 86.7 kg Body Mass Index (BMI) 32.8 Intake & Output: Intake and Output for Last 24 Hours 12/31/24 01/01/25 01/02/25 23:59 23:59 23:59 Intake Total 879.5 / 1329.5 926.83 / 926.83 98.17 / 98.17 Balance 879.5 / 1329.5 926.83 / 926.83 98.17 / 98.17 Lab / Micro Data 01/02/25 05:30 01/02/25 05:30 Labs: Laboratory Results - last 24 hr 01/01/25 11:39: Hgb 8.3 L, Hct 26.0 L 01/02/25 05:30: WBC 8.9, RBC 3.16 L, Hgb 8.1 L, Hct 25.2 L, MCV 79.7 L, MCH 25.6L, MCHC 32.1, RDW Std Deviation 43.6, RDW Coeff of Carmine 14.8 H, Plt Count 321, MPV 9.5, Immature Gran % (Auto) 0.300, Neut % (Auto) 69.4, Lymph % (Auto) 18.9 L, Nobles % (Auto) 9.2, Eos % (Auto) 2.0, Baso % (Auto) 0.2, Absolute Neuts (auto) 6.2, Absolute Lymphs (auto) 1.68, Nucleated RBC % 0, PT 14.0, INR 1.1, Sodium 139, Potassium 3.3, Chloride 102, Carbon Dioxide 25.0, Anion Gap 12, BUN 11, Creatinine 0.91, Estim Creat Clear Calc 53.44, Est GFR (MDRD) Non-Af 64, BUN/Creatinine Ratio 11.8, Glucose 104 H, Calcium 8.6, Total Bilirubin 0.39, Direct Bilirubin 0.15, AST 22, ALT 20, Alkaline Phosphatase 81, Total Protein 6.3, Albumin 3.6, Globulin 2.7 Rhythm Strip Rhythm Strip: Sinus Rhythm Rate: 75 Ectopy: None Physical Exam Narrative GENERAL: cooperative HEENT: Atraumatic; normocephalic EYES; Anicteric, Normal Conjunctiva NECK; supple, normal thyroid, RESPIRATORY: Diminished to auscultation CARDIOVASCULAR: Regular S1 S2, GI: soft, normoactive bowel sounds, : No Renal angle tenderness; EXTREMITIES: No edema, no clubbing, MUSCULOSKELETAL: no muscle wasting NEURO: Awake; no lateralizing signs. SKIN: No Rash PSYCH; Flat affect Assessment & Plan Assessment/Plan (1) Melena: PLAN: Plan Patient is an 79-year-old lady admitted with GI bleed?melena with associated fatigue 1.Acute GI bleed ? Suspected to be secondary to upper GI bleed exacerbated by the use of apixaban. Patient hemoglobin on admission was 5.8. Admitted to a monitored bedpatient was transfused with 2 unit PRBC and. Eliquis held started on Protonix drip following a bolus. Consult placed to GI for endoscopy ? 01/02/2025; patient underwent EGD by Dr. 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 Biopsied. - Small hiatal hernia. - Gastric lipoma. - Mucosal changes in the duodenum. Biopsied. Recommendations : - Return patient to [facility]. - Clear liquid diet. - Continue present medications. - Await pathology results. - Prep for colonoscopy ? Patient scheduled to undergo colonoscopy 2. Anemia ? Secondary to acute blood loss anemia management as discussed above; monitoringH&H and transfuse if patient becomes symptomatic or hemoglobin falls below 7 ? 01/02/2025; patient hemoglobin up to 8.1 following blood transfusion. Will repeat H&H in a.m. 3. Paroxysmal atrial fibrillation ? Rate controlled on systemic anticoagulation with apixaban held given reasons above 4. Essential hypertension ? Patient antihypertensives held on admission given relative hypotension 5. Class I obesity with BMI of 34 ? Complicating care weight loss advised 6. History of thyroid cancer status post thyroidectomy ? Patient is on replacement therapy with levothyroxine 7. Generalized osteoarthritis ? Pain meds as needed 8. DVT prophylaxis ? Chemoprophylaxis contraindicated given patient presentation Time spent in the patient's overall evaluation,decision-making process, review of diagnostic data, adjustment of management, discussion with other providers, nursing nursing and ancillary staff involved in patient's care documentation, 52Minutes Charges/Coding Visit Charges Inpatient E&M: 28226 Subs Hosp L2 01/02/25 1112 Cosigner Signature (if applicable): CC: ~ Signed [facility]06-03-2025 Consult note Author Austin Jaimes [facility] Note Date/Time January 01, 2025 5:39p m [facility] Medical Records Department [address] [place] [address] Consultation - GI 12/31/241924 MR#: [id number] Acct: [id number] Name: MARIETTA TEMPLE Rep #:[id number] : 1945 79 From: Austin Jaimes DO PCP: Dr. Marika Park MD Status:AD M IN Location: [place] [id number]- HPI Consult Data Date of Consult: 12/31/24 HPI Narrative Reason for Consultation: GI bleed HPI Narrative: MARIETTA TEMPLE, is a 79 F who presents with worsening fatigue and shortness of breath. She has a history of atrial fibrillation/atrial flutter. She also has COPD. In ED she was hypertensive and mildly tachycardic. WBC 9.0, Hgb 6.2 L, Hct 20.1 L, MCV 81.0, Plt Count 330. 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 Symptomatic menopausal or female climacteric states Vaginal enterocele, congenital or acquired Postmenopausal atrophic vaginitis Rectocele Plantar fasciitis Pain in joint, shoulder region Nontoxic multinodular goiter Indeterminate pulmonary nodules Hemorrhage of gastrointestinal tract, unspecified Cystocele, midline Benign neoplasm of colon Colon polyp Dyspnea on exertion Chest pain, unspecified Essential hypertension Ventricular ectopy Premature atrial contraction Paroxysmal atrial flutter Vision problems Thyroid cancer Skin cancer Osteoarthritis IBS (irritable bowel syndrome) Cancer Arthritis Ataxia Home Medications ?Medication ?Instructions ?Recorded ?Last Taken ?Type conjugated estrogens 0.625 mg/gram 1 dose vaginal .COM PLEX dryness 10/09/13 02/08/19 History vaginal cream magnesium oxide 200 mg PO DAILY 10/24/1909/25 History multivitamin 1 cap PO DAILY 10/24/1909/25 History triamterene 37.5 1 tab PO QODAY 07/16/2109/25 History mg-hydrochlorothiazide 25 mg tablet cholecalciferol (vitamin D3) 50 50 mcg PO DAILY 12/31/24 History mcg (2,000 unit) tablet coenzyme Q10 10 mg capsule 10 mg PO ONCE 01/07/2309/25 History levothyroxine 112 mcg tablet 112 mcg PO DAILY 01/07/23 12/30/24 History spacer #1 ea 02/22/23 Unknown Rx spacer #1 ea 03/21/23 Unknown Rx lactobacillus combination no.4 3 3,000 mmu cells PO DA ASHWIN supplement 08/15/24 12/31/24 History billion cell capsule (Probiotic) fluticasone propionate 230 2 inh inhalation BID #3 ea 09/18/24 12/31/24 Rx mcg-salmeterol 21 mcg/actuation HFA inhaler (Advair HFA) metoprolol succinate 50 mg 50 mg PO BID 90 days #180 t abs 09/28/24 12/31/24 Rx tablet,extended release 24 hr apixaban 5 mg tablet (Eliquis) 5 mg PO BID 12/31/24 History losartan 100 mg tablet 100 mg PO DAILY 12/31/2409/25 History triamterene 37.5 2 tab PO QODAY 12/31/2408/25 History mg-hydrochlorothiazide 25 mg tablet Allergy/AdvReac Type Severity Reaction Status Date / Time Sulfa (Sulfonamide Allergy Rash Verified 12/31/24 10:33 Antibiotics) codeine AdvReac Nausea Verified 12/31/24 10:33 Family History Father , 1977 Alcoholism Emphysema of lung Sister , 2016 ANGINA Cancer Diabetes CVA (cerebral vascular accident) Thyroid disorder Uterine cancer Brother Cancer Diabetes Mother Diabetes Myocardial infarction Heart disease 1964-59 YEARS Hypertension Surgical History History of cholecystectomy History of thyroidectomy Hx of breast reduction, elective History of bilateral knee replacement Social History Smoking Status: Former smoker how long ago did patient quit smokin alcohol intake: never substance use type: does not use caffeine: Yes Type: coffee Number of servings: 4 and tea ROS Constitutional Constitutional: Denies fatigue, fever(s), poor appetite, weight gain or weight loss Gastrointestinal Gastrointestinal: Denies belching, bloating, change in bowel habits, change in stool character, chewing difficulty, coffee ground emesis, constipation, cramping, diarrhea, dyspepsia, dysphagia, early satiety, excessive flatus, fecalincontinence, heartburn, hematemesis, hematochezia, hemorrhoids, loose stools, melena, nausea, odynophagia, rectal bleeding, tenesmus, vomiting or weight changes Physical Exam Const alert, oriented x3, no apparent distress and healthy appearing General Appearance: cooperative GI normal to inspection, nondistended, normoactive bowel sounds, soft to palpation,non-tender and non-distended Percussion: normal to percussion Rectal Exam: deferred Lab / Micro Data 12/31/24 15:28 12/31/24 11:55 Labs: Laboratory Results - last 24 hr 12/31/24 11:55: WBC Cancelled, Corrected WBC Cancelled, RBC Cancelled, Hgb Cancelled, Hct Cancelled, MCV Cancelled, MCH Cancelled, MCHC Cancelled, RDW Std Deviation Cancelled, RDW Coeff of Carmine Cancelled, Plt Count Cancelled, MPV Cancelled, Immature Gran % (Auto) Cancelled, Neut % (Auto) Cancelled, Lymph % (Auto) Cancelled, Nobles % (Auto) Cancelled, Eos % (Auto) Cancelled, Baso % (Auto)Cancelled, Absolute Neuts (auto) Cancelled, Absolute Lymphs (auto) Cancelled, Total Counted Cancelled, Neutrophils % (Manual) Cancelled, Band Neutrophils % Cancelled, Lymphocytes % (Manual) Cancelled, Monocytes % (Manual) Cancelled, Eosinophils % (Manual) Cancelled, Basophils % (Manual) Cancelled, Metamyelocytes% Cancelled, Myelocytes % Cancelled, Promyelocytes % Cancelled, Blast Cells % Cancelled, Plasma Cell % (Manual) Cancelled, Other Cells % Cancelled, Nucleated RBC % Cancelled, Nucleated RBCs/100 WBC Cancelled, Differential Comment Cancelled, Diff Path Review Cancelled, Hypersegmented Neuts Cancelled, Atypical Lymphocytes Cancelled, Reactive Lymphocytes Cancelled, Smudge Cells Cancelled, Toxic Granulation Cancelled, Toxic Vacuolation Cancelled, Dohle Bodies Cancelled, Naz Rods Cancelled, Platelet Estimate Cancelled, Plt Morphology Comment Cancelled, RBC Morphology Cancelled 12/31/24 11:55: RBC Morphology Cancelled, Polychromasia Cancelled, HypochromasiaCancelled, Basophilic Stippling Cancelled, Anisocytosis Cancelled, Microcytosis Cancelled, Macrocytosis Cancelled, Spherocytes Cancelled, Sickle Cells Cancelled, Target Cells Cancelled, Tear Drop Cells Cancelled, Ovalocytes Cancelled, Stomatocytes Cancelled, [place] Bodies Cancelled, Mary Ellen Cells Cancelled, Bite Cells Cancelled, Crenated Cell Cancelled, Acanthocytes (Spur) Cancelled, Rouleaux Cancelled, Schistocytes Cancelled, Sodium 137, Potassium 3.4, Chloride 101, Carbon Dioxide 22.3, Anion Gap 14, BUN 20 H, Creatinine 0.88,Est GFR (MDRD) Non-Af 66, BUN/Creatinine Ratio 23.2 H, Glucose 113 H, Calcium 9.4, Troponin T High Sens 10 12/31/24 12:30: WBC 9.0, RBC 2.48 L, Hgb 6.2 L, Hct 20.1 L, MCV 81.0, MCH 25.0 L, MCHC 30.8 L, RDW Std Deviation 44.1 H, RDW Coeff of Carmine 15.0 H, Plt Count 330,MPV 10.6, Immature Gran % (Auto) 0.600, Neut % (Auto) 72.2 H, Lymph % (Auto) 15.4 L, Nobles % (Auto) 10.5 H, Eos % (Auto) 1.1, Baso % (Auto) 0.2, Absolute Neuts (auto) 6.5, Absolute Lymphs (auto) 1.39, Nucleated RBC % 0 12/31/24 14:45: Blood Type O POSITIVE, Antibody Screen NEGATIVE, Crossmatch See Detail 12/31/24 15:28: Hgb 5.8 L*, Hct 19.2 L, Troponin T Hi Sens 2 Hr 10 Rhythm Strip Rhythm Strip: Sinus Rhythm Rate: 75 Ectopy: None Imaging Radiology Impression Chest X-Ray 12/31/24 11:35 IMPRESSION: No acute cardiopulmonary process. Reading Location: [facility] Assessment & Plan Assessment/Plan (1) GIB (gastrointestinal bleeding): PLAN: 79-year-old on Eliquis comes in with melanotic stools discovered to have hemoglobin of 5.8. Likely upper GI bleed versus small bowel bleed versus lower GI bleed. She should undergo an upper endoscopy. She was explained alternatives, risk and benefits including withstanding bleeding, pressure, subs,perforation, need for charge and . Have an ASA of 3. Charges/Coding Visit Charges Inpatient E&M: 02740 Init Hosp L3 01/01/25 0710 <Electronically signed by Austin Friend DO> Cosigner Signature (if applicable): CC: Dr. Marika Park MD~ Signed [facility] Work Phone: 1(653) 210-389306-03-2025 Consult note Author Andres Omer [facility] Note Date/Time January 01, 2025 4:49p m [facility] Medical Records Department [address] [place] [address] Anesthesia Postop Eval II 01/01/25 1649 MR#: [id number] Acct: [id number] Name: MARIETTA TEMPLE Rep #:[id number] : 1945 79 From: Andres SEQUEIRA PCP: Dr. Marika Park MD Status:AD M IN Y Race: C Location: [place] [address] 0-1 Anesthesia Postop Eval I Sum Postop Eval Completion status Anesthesia document: Postop Eval 1 completed: Yes Anesthesia Postop Eval I Summary Anesthesia Postop Eval I Summary: Anesthesia Postop Eval I: Assessment Summary Airway patent Yes 01/01/25 16:32 PIPE FINISHING SUPERVISOR.MDOT Spontaneous unlabored Yes 01/01/25 16:32 PIPE FINISHING SUPERVISOR.MDOT respirations Mental status Awake 01/01/25 16:32 PIPE FINISHING SUPERVISOR.MDOT nausea No 01/01/25 16:32 PIPE FINISHING SUPERVISOR.MDOT Vomiting No 01/01/25 16:32 PIPE FINISHING SUPERVISOR.MDOT Anesthesia Postop Eval I: Fluid Summary Crystalloid volume administer 200 01/01/25 16:32 PIPE FINISHING SUPERVISOR.MDOT (ml) Colloids volume administered ( ml) Blood Product volume administered (ml) Total IV fluid infused 200 01/01/25 16:32 PIPE FINISHING SUPERVISOR.MDOT Anesthesia Postop Eval I: Summary Notes Anesthesia Complication No 01/01/25 16:32 PIPE FINISHING SUPERVISOR.MDOT Anesthesia Complication Comment: Post-operative progress note Anesthesia: Postop Eval II Evaluation Mental status: Awake and Calm Pain Level: 0 nausea: No Vomiting: No Complications Anesthesia Complication: No 01/01/25 1649 <Electronically signed by Andres Omer CRNA> Date _ Andres Omer CRNA Cosigner Signature: Date CC: ~ Signed [facility] Work Phone: 1(499) 981-638006-03-2025 Consult note Author Andres Omer [facility] Note Date/Time January 01, 2025 4:32p m [facility] Medical Records Department [address] [place] [address] Anesthesia Postop Eval I 01/01/25 1622 MR#: [id number] Acct: [id number] Name: MARIETTA TEMPLE Rep #:[id number] : 1945 79 From: Andres SEQUEIRA PCP: Dr. Marika Park MD Status:AD M IN Y Race: C Location: [place] [address] 0-1 Anesthesia: Postop Eval I Current Vital Signs Temperature: 97 F Pulse Rate: 65 Blood Pressure: 123/76 Respiratory Rate: 16 Pulse Ox: 100 Oxygen Delivery Method: Room Air Assessment Airway patent: Yes Spontaneous unlabored respirations: Yes Mental status: Awake nausea: No Vomiting: No Anesthesia Complication: No Fluid Hydration Crystalloid volume administer (ml): 200 Total IV fluid infused: 200 Progress Note Anesthesia document: Postop Eval 1 completed: Yes 01/01/25 1632 <Electronically signed by Andres Omer CRNA> Date _ Andres Omer CRNA Cosigner Signature: Date CC: ~ Signed [facility] Work Phone: [phone]) 981-903706-03-2025 Consult note Author Alejandro Malloy [facility] Note Date/Time January 01, 2025 3:41p m [facility] Medical Records Department [address] [place] [address] Pre-Anesthesia Evaluation 01/01/25 1524 MR#: [id number] Acct: [id number] Name: MARIETTA TEMPLE Rep #:[id number] : 1945 79 From: Alejandro Malloy MD PCP: Dr. Marika Park MD Status:AD M IN Y Race: C Location: [place] [address] 0-[address] Alejandro Malloy MD on 01/01/25 at 1540 Addendum Patient's lower partial is out. 01/01/25 1540 <Electronically signed by Alejandro chin MD> Date _ Alejandro Malloy MD cc: ~* Signed ASA Classification* ASA Classification ASA Classification: 3 Assessment & Plan Anesthesia* Anesthesia Assessment Anesthesia Assessment: Discussed sedation and/or anesthesia options, risks, benefits, and alternatives with patient/parents/legal guardian/POA. Questions invited. The patient/parents/legal guardian/POA seems to understand and agrees to proceedwith anesthesia plan. Reviewed the physical assessment, medical history, allergy history and patient home medications list prior to surgery/procedure/anesthetic and documented any changes. Performed airway and anesthesia risk assessments. Anesthesia Type Anesthesia Type: MAC History Source History Obtained from:: Patient and Chart Anesthesia Focused Assessment* Temperature: 98.2 F Pulse Rate: 67 Blood Pressure: 122/49 Respiratory Rate: 16 Pulse Ox: 99 Oxygen Delivery Method: Room Air Airway Assessment Mouth opens: >3 cm Mallampati Score: II Teeth Condition: Dentures (Patient has full upper dentures.) Neck Range of motion (ROM): Limited ROM (Slight decrease in extension.) Focused Labs Anesthesia Preop lab: CBC WBC 7.3 K/mm3 (4.4-11.0) 01/01/25 05:25 01/01/25 RBC 3.04 M/mm3 (4.2-5.4) L 01/01/25 05:25 01/01/25 Hgb 8.3 g/dL (12.0-15.0) L 01/01/25 11:39 01/01/25 Hct 26.0 % (37-47) L 01/01/25 11:39 01/01/25 Plt Count 304 K/mm3 (150-450) 01/01/25 05:25 01/01/25 CHEMISTRY Potassium 3.5 mmol/L (3.3-5.1) 01/01/25 05:25 01/01/25 Sodium 140 mmol/L (133-145) 01/01/25 05:25 01/01/25 Magnesium 2.0 mg/dL (1.5-2.2) 01/01/25 05:25 01/01/25 Phosphorus 3.3 mg/dL (2.7-4.5) 01/01/25 05:25 01/01/25 BUN 13 mg/dL (4-19) 01/01/25 05:25 01/01/25 Creatinine 0.84 mg/dL (0.70-1.20) 01/01/25 05:25 01/01/25 Glucose 97 mg/dL (70-99) 01/01/25 05:25 01/01/25 TSH 4.640 uIU/mL (0.358-3.740) H 08/15/24 05:06 COAG PT 14.9 SECONDS (11.7-14.9) 01/01/25 05:25 Pre-Assessment Diagnosis/Proposed Procedure Planned Operative Procedure(s): Esophagogastroduodenoscopy with possible cauteryand/or injection therapy. Anesthesia History Anesthesia History - collateral clerk: Anesthesia History - collateral clerk Hx Hospitalization Any Problems With Anesthesia No 12/31/24 22:58 Cholinesterase deficiency No 12/31/24 22:58 You/Your Family Experience No 12/31/24 22:58 fever (hyperthermia) with Relationship Recent Exposure to Contagious No 12/31/24 22:58 Disease Does patient have nerve No 12/31/24 22:58 stimulator Patient instructed to have No 12/31/24 22:58 device shut off --Does patient have Pacemaker No 01/01/25 14:16 or ICD? When Was Last Pacemaker Check QUESTION #4 FULL TEXT: You/Your Family Experience fever (hyperthermia) with Anesthesia Last Oral Intake Last Oral intake: Last Oral Intake NPO since 00:00 01/01/25 14:16 Meds taken in AM with sips of Yes 01/01/25 14:16 water? Meds patient instructed to 50mg metoprolol at 0839 01/01/25 14:16 take am of surgery PONV PONV - collateral clerk: PONV - collateral clerk Female HX of Motion Sickness HX of N/V After Surgery Non-Smoker Duration of Surgery greater than 60 minutes Number of Risk Factors PONV Score Height & Weight Height & Weight: Anesthesia: Height & Weight Height 5 ft 4 in 01/01/25 14:16 Weight: 89.6 kg 01/01/25 14:16 Body Mass Index (BMI) 33.9 01/01/25 14:16 Respiratory Assessment Respiratory Assessment - collateral clerk: Respiratory Tract Infection Hx - collateral clerk Hx Respiratory Tract Infection No 12/31/24 22:58 STOP Sleep Apnea STOP Sleep Apnea - collateral clerk: STOP Sleep Apnea - collateral clerk Hx Hypertension Yes 01/01/25 12:10 Hx Sleep Apnea No 12/31/24 15:09 CPAP BIPAP Do you snore loudly (louder No 12/31/24 15:09 than talking or can be heard Do you often feel tired/ No 12/31/24 15:09 fatigued/ sleepy during daytime? Has anyone observed you stop No 12/31/24 15:09 breathing during sleep? STOP Results Negative 12/31/24 15:09 QUESTION #5 FULL TEXT : Do you snore loudly (louder than talking or can be heard through closed doors)? Tobacco Use History Tobacco Use History - collateral clerk: Tobacco Use History - collateral clerk Tobacco Use Smoking Status Former smoker 12/31/24 15:09 Hx Tobacco Use No 12/31/24 15:09 Years Smoking Packs Smoked per Day Smoking Cessation Date was No - quit smoking greater 12/31/24 15:09 within the last 15 years than 15 years ago Hx Smoking Cessation Date 12/28/99 12/31/24 15:09 Hx Smoking Cessation No 12/31/24 15:09 Counseling Hematologic Medial History Hematologic Hx - collateral clerk: Hematologic Medical Hx - bull bucker Hx of Blood Transfusion No 12/31/24 15:09 Hx of Transfusion in last 3 No 12/31/24 15:09 Months Date of Last Transfusion (if within last 3 months) Ever experience any problems No 12/31/24 15:09 with transfusion(s)? Specify any problems Hx of Preganancy in last 3 No 12/31/24 15:09 Months Nurse Filling Out Transfusion DEJAH 12/31/24 15:09 & Questions: Date: 12/31/24 12/31/24 15:09 Time: 16:12/31/24 15:09 Patient unable to answer at this time (ie. confused, unrespo /Reproduction History /Reproductive History - collateral clerk: /Reproductive Hx- collateral clerk Hx Now No 12/31/24 22:58 Gestational Age (in weeks): EDC: Hx Hx Para Hx Section SAB No 12/31/24 22:58 Active Medications Active Medications: Current Medications Generic Name Dose Route Start Last Admin Trade Name Freq PRN Reason Stop Dose Admin Acetaminophen 650 mg 12/31/24 15:09 Acetaminophen 325 Mg Tablet PO Q6H PRN PRN Pain 1-10 Or Fever >100.7 Albuterol Sulfate 2.5 mg 12/31/24 15:32 01/01/25 07:22 Albuterol 2.5 Mg/3 Ml Vial.Neb. INHALATION 2.5 mg Q6HWA.RT EDITA Administration Albuterol Sulfate 2.5 mg 12/31/24 15:09 Albuterol 2.5 Mg/3 Ml Vial.Neb. INHALATION Q2H PRN PRN SOB &/OR WHEEZING Budesonide 0.5 mg 12/31/24 15:45 12/31/24 22:15 Budesonide Respules 0.5 Mg/2 Ml Ampul.Neb. INHALATION 0.5 mg Q12H.RT EDITA Administration Cholecalciferol 50 mcg 01/01/25 10:00 Cholecalciferol (Vit D3) 25 Mcg Tablet (1,000 Units) PO DAILY EDITA Pantoprazole Sodium 80 mg/ 100 mls @ 10 mls/hr 12/31/24 15:09 01/01/25 14:30 Sodium Chloride CONT INF 01/03/25 15:10 0 mls/hr Q10H EDITA Infusion Sodium Chloride 250 mls @ 15 mls/hr 12/31/24 15:10 01/01/25 13:00 IV Infused .[id number] PRN Infusion Saline Flush Lactated Ringer's 1,000 mls @ 15 mls/hr 01/01/25 14:45 01/01/25 14:50 IV 15 mls/hr .Q48H EDITA Administration Levothyroxine Sodium 112 mcg 01/01/25 06:00 01/01/25 00:22 Levothyroxine 112 Mcg Tablet PO 112 mcg DAILY@0600 EDITA Administration Metoprolol Succinate 50 mg 12/31/24 22:00 01/01/25 08:39 Metoprolol(Xl)Succ 50 Mg Tablet PO 50 mg BID EDITA Administration Protocol Ondansetron HCl 4 mg 12/31/24 15:09 Ondansetron 4 Mg/2 Ml Vial IV Q8H PRN PRN NAUSEA/VOMITING Pantoprazole Sodium 40 mg 01/04/25 10:00 Pantoprazole Sodium 40 Mg Tablet PO BID EDITA Sodium Chloride 10 - 40 ml 12/31/24 15:10 01/01/25 14:29 0.9% Saline Lock 10 Ml Syringe IV 10 ml UD PRN Administration SALINE FLUSH PFSH Medical History Other nonspecific abnormal finding of lung field 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 Symptomatic menopausal or female climacteric states Vaginal enterocele, congenital or acquired Postmenopausal atrophic vaginitis Rectocele Plantar fasciitis Pain in joint, shoulder region Nontoxic multinodular goiter Indeterminate pulmonary nodules Hemorrhage of gastrointestinal tract, unspecified Cystocele, midline Benign neoplasm of colon Colon polyp Dyspnea on exertion Chest pain, unspecified Essential hypertension Ventricular ectopy Premature atrial contraction Paroxysmal atrial flutter Vision problems Thyroid cancer Skin cancer Osteoarthritis IBS (irritable bowel syndrome) Cancer Arthritis Ataxia Home Medications ?Medication ?Instructions ?Recorded ?Last Taken ?Type conjugated estrogens 0.625 mg/gram 1 dose vaginal .COM PLEX dryness 10/09/13 02/08/19 History vaginal cream magnesium oxide 200 mg PO DAILY 10/24/1909/25 History multivitamin 1 cap PO DAILY 10/24/1909/25 History triamterene 37.5 1 tab PO QODAY 07/16/2109/25 History mg-hydrochlorothiazide 25 mg tablet cholecalciferol (vitamin D3) 50 50 mcg PO DAILY 12/31/24 History mcg (2,000 unit) tablet coenzyme Q10 10 mg capsule 10 mg PO ONCE 01/07/2309/25 History levothyroxine 112 mcg tablet 112 mcg PO DAILY 01/07/23 12/30/24 History spacer #1 ea 02/22/23 Unknown Rx spacer #1 ea 03/21/23 Unknown Rx lactobacillus combination no.4 3 3,000 mmu cells PO DA ASHWIN supplement 08/15/24 12/31/24 History billion cell capsule (Probiotic) fluticasone propionate 230 2 inh inhalation BID #3 ea 09/18/24 12/31/24 Rx mcg-salmeterol 21 mcg/actuation HFA inhaler (Advair HFA) metoprolol succinate 50 mg 50 mg PO BID 90 days #180 t abs 09/28/24 01/01/25 Rx tablet,extended release 24 hr apixaban 5 mg tablet (Eliquis) 5 mg PO BID 12/31/24 History losartan 100 mg tablet 100 mg PO DAILY 12/31/2409/25 History triamterene 37.5 2 tab PO QODAY 12/31/2408/25 History mg-hydrochlorothiazide 25 mg tablet Allergy/AdvReac Type Severity Reaction Status Date / Time Sulfa (Sulfonamide Allergy Rash Verified 12/31/24 10:33 Antibiotics) codeine AdvReac Nausea Verified 12/31/24 10:33 Family History Father , 1977 Alcoholism Emphysema of lung Sister , 2016 ANGINA Cancer Diabetes CVA (cerebral vascular accident) Thyroid disorder Uterine cancer Brother Cancer Diabetes Mother Diabetes Myocardial infarction Heart disease 1964-59 YEARS Hypertension Surgical History History of cholecystectomy History of thyroidectomy Hx of breast reduction, elective History of bilateral knee replacement Social History Smoking Status: Former smoker how long ago did patient quit smokin alcohol intake: never substance use type: does not use caffeine: Yes Type: coffee Number of servings: 4 and tea Review of Systems (Anesthesia) ROS Narrative System reviewed and no additional complaints, except as documented. 01/01/25 5190 <Electronically signed by Alejandro chin MD> Date _ Alejandro Malloy MD Cosigner Signature: Date CC: ~ Signed [facility] Work Phone: 1(125) [phone] Consult note [facility] Medical Records Department [address] [place] [address] Consultation - GI 12/31/241924 MR#: [id number] Acct: [id number] Name: MARIETTA TEMPLE Rep #:[id number] : 1945 79 From: Austin Jaimes DO PCP: Dr. Marika Park MD Status:AD M IN Location: [place] [address] HPI Consult Data Date of Consult: 12/31/24 HPI Narrative Reason for Consultation: GI bleed HPI Narrative: MARIETTA TEMPLE, is a 79 F who presents with worsening fatigue and shortness of breath. She has a historyof atrial fibrillation/atrial flutter. She also has COPD. In ED she was hypertensive and mildly tachycardic. WBC 9.0, Hgb 6.2 L, Hct 20.1 L, MCV 81.0, Plt Count 330. 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 Symptomatic menopausal or female climacteric states Vaginal enterocele, congenital or acquired Postmenopausal atrophic vaginitis Rectocele Plantar fasciitis Pain in joint, shoulder region Nontoxic multinodular goiter Indeterminate pulmonary nodules Hemorrhage of gastrointestinal tract, unspecified Cystocele, midline Benign neoplasm of colon Colon polyp Dyspnea on exertion Chest pain, unspecified Essential hypertension Ventricular ectopy Premature atrial contraction Paroxysmal atrial flutter Vision problems Thyroid cancer Skin cancer Osteoarthritis IBS (irritable bowel syndrome) Cancer Arthritis Ataxia Home Medications ?Medication ?Instructions ?Recorded ?Last Taken ?Type conjugated estrogens 0.625 mg/gram 1 dose vaginal .COM PLEX dryness 10/09/13 02/08/19 History vaginal cream magnesium oxide 200 mg PO DAILY 10/24/1909/25 History multivitamin 1 cap PO DAILY 10/24/19 06/09/25 History triamterene 37.5 1 tab PO QODAY 12/16/21 06/0 2/25 History mg-hydrochlorothiazide 25 mg tablet cholecalciferol (vitamin D3) 50 50 mcg PO DAILY 12/31/24 History mcg (2,000 unit) tablet coenzyme Q10 10 mg capsule 10 mg PO ONCE 01/07/2309/25 History levothyroxine 112 mcg tablet 112 mcg PO DAILY 01/07/23 12/30/24 History spacer #1 ea 02/22/23 Unknown Rx spacer #1 ea 03/21/23 Unknown Rx lactobacillus combination no.4 3 3,000 mmu cells PO DA ASHWIN supplement 08/15/24 12/31/24 History billion cell capsule (Probiotic) fluticasone propionate 230 2 inh inhalation BID #3 ea 09/18/24 12/31/24 Rx mcg-salmeterol 21 mcg/actuation HFA inhaler (Advair HFA) metoprolol succinate 50 mg 50 mg PO BID 90 days #180 t abs 09/28/24 12/31/24 Rx tablet,extended release 24 hr apixaban 5 mg tablet (Eliquis) 5 mg PO BID 12/31/24 History losartan 100 mg tablet 100 mg PO DAILY 12/31/2409/25 History triamterene 37.5 2 tab PO QODAY 12/31/2408/25 History mg-hydrochlorothiazide 25 mg tablet Allergy/AdvReac Type Severity Reaction Status Date / Time Sulfa (Sulfonamide Allergy Rash Verified 12/31/24 10:33 Antibiotics) codeine AdvReac Nausea Verified 12/31/24 10:33 Family History Father , 1977 Alcoholism Emphysema of lung Sister , 2016 ANGINA Cancer Diabetes CVA (cerebral vascular accident) Thyroid disorder Uterine cancer Brother Cancer Diabetes Mother Diabetes Myocardial infarction Heart disease 1964-59 YEARS Hypertension Surgical History History of cholecystectomy History of thyroidectomy Hx of breast reduction, elective History of bilateral knee replacement Social History Smoking Status: Former smoker how long ago did patient quit smokin alcohol intake: never substance use type: does not use caffeine: Yes Type: coffee Number of servings: 4 and tea ROS Constitutional Constitutional: Denies fatigue, fever(s), poor appetite, weight gain or weight loss Gastrointestinal Gastrointestinal: Denies belching, bloating, change in bowel habits, change in stool character, chewing difficulty, coffee ground emesis, constipation, cramping, diarrhea, dyspepsia, dysphagia, earlysatiety, excessive flatus, fecalincontinence, heartburn, hematemesis, hematochezia, hemorrhoids, loose stools, melena, nausea, odynophagia, rectal bleeding, tenesmus, vomiting or weight changes Physical Exam Const alert, oriented x3, no apparent distress and healthy appearing General Appearance: cooperative GI normal to inspection, nondistended, normoactive bowel sounds, soft to palpation,non-tender and non-distended Percussion: normal to percussion Rectal Exam: deferred Lab / Micro Data 12/31/24 15:28 12/31/24 11:55 Labs: Laboratory Results - last 24 hr 12/31/24 11:55: WBC Cancelled, Corrected WBC Cancelled, RBC Cancelled, Hgb Cancelled, Hct Cancelled, MCV Cancelled, MCH Cancelled, MCHC Cancelled, RDW Std Deviation Cancelled, RDW Coeff of Carmine Cancelled, Plt Count Cancelled, MPV Cancelled, Immature Gran % (Auto) Cancelled, Neut % (Auto) Cancelled, Lymph % (Auto) Cancelled, Nobles % (Auto) Cancelled, Eos % (Auto) Cancelled, Baso % (Auto)Cancelled, Absolute Neuts (auto) Cancelled, Absolute Lymphs (auto) Cancelled, Total Counted Cancelled, Neutrophils % (Manual) Cancelled, Band Neutrophils % Cancelled, Lymphocytes % (Manual) Cancelled, Monocytes %(Manual) Cancelled, Eosinophils % (Manual) Cancelled, Basophils % (Manual) Cancelled, Metamyelocytes% Cancelled, Myelocytes % Cancelled, Promyelocytes % Cancelled, Blast Cells % Cancelled, Plasma Cell % (Manual) Cancelled, Other Cells % Cancelled, Nucleated RBC % Cancelled, Nucleated RBCs/100 WBC Cancelled, Differential Comment Cancelled, Diff Path Review Cancelled, Hypersegmented Neuts Cancelled, Atypical Lymphocytes Cancelled, Reactive Lymphocytes Cancelled, Smudge Cells Cancelled, Toxic Granulation Cancelled, Toxic Vacuolation Cancelled, Dohle Bodies Cancelled, Naz Rods Cancelled, Platelet Estimate Cancelled, Plt Morphology Comment Cancelled, RBC Morphology Cancelled 12/31/24 11:55: RBC Morphology Cancelled, Polychromasia Cancelled, HypochromasiaCancelled, Basophilic Stippling Cancelled, Anisocytosis Cancelled, Microcytosis Cancelled, Macrocytosis Cancelled, Spherocytes Cancelled, Sickle Cells Cancelled, Target Cells Cancelled, Tear Drop Cells Cancelled, Ovalocytes Cancelled, Stomatocytes Cancelled, [place] Bodies Cancelled, [place] Cells Cancelled, Bite Cells Cancelled, Crenated Cell Cancelled, Acanthocytes (Spur) Cancelled, Rouleaux Cancelled, Schistocytes Cancelled, Sodium 137, Potassium 3.4, Chloride 101, Carbon Dioxide 22.3, Anion Gap 14, BUN 20 H,Creatinine 0.88,Est GFR (MDRD) Non-Af 66, BUN/Creatinine Ratio 23.2 H, Glucose 113 H, Calcium 9.4, Troponin T High Sens 10 12/31/24 12:30: WBC 9.0, RBC 2.48 L, Hgb 6.2 L, Hct 20.1 L, MCV 81.0, MCH 25.0 L, MCHC 30.8 L, RDW Std Deviation 44.1 H, RDW Coeff of Carmine 15.0 H, Plt Count 330,MPV 10.6, Immature Gran % (Auto) 0.600,Neut % (Auto) 72.2 H, Lymph % (Auto) 15.4 L, Nobles % (Auto) 10.5 H, Eos % (Auto) 1.1, Baso % (Auto) 0.2, Absolute Neuts (auto) 6.5, Absolute Lymphs (auto) 1.39, Nucleated RBC % 0 12/31/24 14:45: Blood Type O POSITIVE, Antibody Screen NEGATIVE, Crossmatch See Detail 12/31/24 15:28: Hgb 5.8 L*, Hct 19.2 L, Troponin T Hi Sens 2 Hr 10 Rhythm Strip Rhythm Strip: Sinus Rhythm Rate: 75 Ectopy: None Imaging Radiology Impression Chest X-Ray 12/31/24 11:35 IMPRESSION: No acute cardiopulmonary process. Reading Location: [facility] Assessment & Plan Assessment/Plan (1) GIB (gastrointestinal bleeding): PLAN: 79-year-old on Eliquis comes in with melanotic stools discovered to have hemoglobin of 5.8. Likely upper GI bleed versus small bowel bleed versus lower GI bleed. She should undergo an upper endoscopy. She was explained alternatives, risk and benefits including withstanding bleeding, pressure,subs,perforation, need for charge and . Have an ASA of 3. Charges/Coding Visit Charges Inpatient E&M: 14916 Init Hosp L3 01/01/25 3269 Cosigner Signature (if applicable): CC: Dr. Marika Park MD~ Signed [facility]06-03-2025 Progress note Author Austin Jaimes [facility] Note Date/Time January 01, 2025 3:20p m [facility] Medical Records Department [address] [place] [address] Progress Note 01/01/25 1519 MR#: [id number] Acct: [id number] Name: MARIETTA TEMPLE Rep #:[id number] : 1945 79 From: Austin Jaimes DO PCP: Dr. Marika Park MD Status:AD M IN Location: [place] [id number]- Progress Note Patient has been n.p.o. all day. She has been off anticoagulation. She has notseen any more dark stools. Physical Exam Const alert, oriented x3, no apparent distress and healthy appearing General Appearance: cooperative GI normal to inspection, nondistended, normoactive bowel sounds, soft to palpation,non-tender and non-distended Percussion: normal to percussion Rectal Exam: deferred Assessment & Plan Assessment/Plan (1) GIB (gastrointestinal bleeding): PLAN: 79-year-old on Eliquis comes in with melanotic stools discovered to have hemoglobin of 5.8. Likely upper GI bleed versus small bowel bleed versus lower GI bleed. She should undergo an upper endoscopy. She was explained alternatives, risk and benefits including withstanding bleeding, pressure, subs,perforation, need for charge and . Have an ASA of 3. PLAN: Plan 01/01/2025-all labs reviewed and patient questions and concerns were answered prior to the procedure. She was explained alternatives, risk and benefits include not withstanding bleeding, infection, sepsis, perforation, need for urgent . She will have an ASA of 3. Visit Charges Inpatient E&M: 73024 Subs Hosp L2 01/01/25 1520 <Electronically signed by Austin Jaimes DO> Austin Jaimes DO Cosigner Signature (if applicable): CC: ~ Signed [facility] Work Phone: [phone]) 801-613806-03-2025 Consult note [facility] Medical Records Department [address] [place] [address] Anesthesia Postop Eval II 01/01/25 1649 MR#: [id number] Acct: [id number] Name: MARIETTA TEMPLE Rep #:[id number] : 1945 79 From: Andres Ayoub RNA PCP: Dr. Marika Park MD Status:AD M IN Y Race: C Location: [place] [address] 0-1 Anesthesia Postop Eval I Sum Postop Eval Completion status Anesthesia document: Postop Eval 1 completed: Yes Anesthesia Postop Eval I Summary Anesthesia Postop Eval I Summary: Anesthesia Postop Eval I: Assessment Summary Airway patent Yes 01/01/25 16:32 PIPE FINISHING SUPERVISOR.MDOT Spontaneous unlabored Yes 01/01/25 16:32 PIPE FINISHING SUPERVISOR.MDOT respirations Mental status Awake 01/01/25 16:32 PIPE FINISHING SUPERVISOR.MDOT nausea No 01/01/25 16:32 PIPE FINISHING SUPERVISOR.MDOT Vomiting No 01/01/25 16:32 PIPE FINISHING SUPERVISOR.MDOT Anesthesia Postop Eval I: Fluid Summary Crystalloid volume administer 200 01/01/25 16:32 PIPE FINISHING SUPERVISOR.MDOT (ml) Colloids volume administered ( ml) Blood Product volume administered (ml) Total IV fluid infused 200 01/01/25 16:32 PIPE FINISHING SUPERVISOR.MDOT Anesthesia Postop Eval I: Summary Notes Anesthesia Complication No 01/01/25 16:32 PIPE FINISHING SUPERVISOR.MDOT Anesthesia Complication Comment: Post-operative progress note Anesthesia: Postop Eval II Evaluation Mental status: Awake and Calm Pain Level: 0 nausea: No Vomiting: No Complications Anesthesia Complication: No 01/01/25 1649 PIPE FINISHING SUPERVISOR> Date _ Andres Omer PIPE FINISHING SUPERVISOR Cosigner Signature: Date CC: ~ Signed [facility]06-03-2025 Procedure note [facility] Medical Records Department [address] [place] [address] EGD Report MR#: [id number] Acct: [id number] Name: MARIETTA TEMPLE Rep #:[id number] : 1945 79 From: Austin Jaimes DO PCP: Dr. Marika Park MD Status:AD M IN Patient Name: Marietta Temple Procedure Date: 01/01/2025 4:14 PM Date of : 1945 Age: 79 Procedure: Upper GI endoscopy Indications: Iron deficiency anemia, Melena, Occult blood in stool, Recent gastrointestinal bleeding Providers: Austin Jaimes DO Medicines: Monitored Anesthesia Care Patient Profile: This is an 79 year old female. Refer to note in patient chart for documentation of history and physical. Patient has symptoms. Complications: No immediate complications. Procedure: Pre-Anesthesia Assessment: - Prior to the procedure, a History and Physical was performed, and patient medications and allergies were reviewed. The patient is competent. The risks and benefits of the procedure and the sedation options and risks were discussed with the patient. All questions were answered and informed consent was obtained. Patient identification and proposed procedure were verified by the physician. Mental Status Examination: alert and oriented. Airway Examination: normal oropharyngeal airway and neck mobility. Respiratory Examination: clear to auscultation. CV Examination: normal. ASA Grade Assessment: II - A patient with mild systemic disease. After reviewing the risks and benefits, the patient was deemed in satisfactory condition to undergo the procedure. The anesthesia plan was to use monitored anesthesia care (MAC). Immediately prior to administration of medications, the patient was re-assessed for adequacy to receive sedatives. The heart rate, respiratory rate, oxygen saturations, blood pressure, adequacy of pulmonary ventilation, and response to care were monitored throughout the procedure. The physical status of the patient was re-assessed after the procedure. After obtaining informed consent, the endoscope was passed under direct vision. Throughout the procedure, the patient's blood pressure, pulse, and oxygen saturations were monitored continuously. The Endoscope was introduced through the mouth, and advanced to the fourth part of the duodenum. Small bowel enteroscopy was deemed necessary. The upper GI endoscopy was accomplished without difficulty. The patient tolerated the procedure well. Scope In: 4:27:40 PM Scope Out: 4:30:48 PM Total Procedure Duration Time 0 hours 3 minutes 8 seconds Findings: There were esophageal mucosal changes suspicious for short-segment Lozada's esophagus present in the lower third of the esophagus. The maximum longitudinal extent of these mucosal changes was 3 cm in length. Mucosa was biopsied with a cold forceps for histology in a targeted manner at intervals of 1 cm in the lower third of the esophagus. One specimen bottle was sent to pathology. Verification of patient identification for the specimen was done. Estimated blood loss was minimal. A small hiatal hernia was present. No other significant abnormalities were identified in a careful examination of the stomach. There was a medium-sized lipoma in the gastric body. Patchy mild mucosal changes characterized by erosion and granularity were found in the first portion of the duodenum. Biopsies were taken with a cold forceps for histology. Verification of patient identification for the specimen was done. Estimated blood loss was minimal. Impression: - Esophageal mucosal changes suspicious for short-segment Lozada's esophagus. Biopsied. - Small hiatal hernia. - Gastric lipoma. - Mucosal changes in the duodenum. Biopsied. Recommendation: - [facility]. - Clear liquid diet. - Continue present medications. - Await pathology results. - Prep for colonoscopy Procedure Code(s): --- Professional --- 64328, Small intestinal endoscopy, enteroscopy beyond second portion of duodenum, not including ileum; with biopsy, single or multiple CPT copyright 2021 [employer]. All rights reserved. The codes documented in this report are preliminary and upon power station operator review may be revised to meet current compliance requirements. Austin Jaimes DO 01/01/2025 4:37:16 PM This report has been signed electronically. Number of Addenda: 0 Note Initiated On: 01/01/2025 4:14 PM 01/01/251636 Date _ Austin Jaimes DO Cosigner Signature: Date (if indicated) CC: Dr. Marika Park MD; Austin Jaimes DO ~ Date Dictated: 01/01/25 1614 Date Transcribed: Verifier Operator: RF Signed [facility]06-03-2025 Procedure note [facility] Medical Records Department [address] [place] [address] Operative Report - CC Letter MR#: [id number] Acct: [id number] Name: MARIETTA TEMPLE Rep #:[id number] : 1945 79 From: Austin Jaimes DO PCP: Dr. Marika Park MD Status:AD M IN 01/01/2025 Marika Park [address] [place] [address] Re : Upper GI endoscopy procedure for Marietta Temple Dear Dr. Park This procedure was performed on Wednesday, January 01, 2025. My impressions and recommendations are as follows: Impressions : - Esophageal mucosal changes suspicious for short-segment Lozada's esophagus. Biopsied. - Small hiatal hernia. - Gastric lipoma. - Mucosal changes in the duodenum. Biopsied. Recommendations : - [facility]. - Clear liquid diet. - Continue present medications. - Await pathology results. - Prep for colonoscopy My findings are described in the full procedure note, which is enclosed. If I can be of further assistance, please feel free to contact me at . Sincerely, Austin Jaimes DO 01/01/2025 4:37:16 PM This report has been signed electronically. 01/01/251636 Date _ Austin Theodore EDWARDS Cosigner Signature: Date (if indicated) CC: Dr. Carrillo Strong MD; Dr. Myranda Shirley DO; Dr. Marika Park MD ~ Date Dictated: 01/01/25 1614 Date Transcribed: Verifier Operator: RF Signed [facility]06-03-2025 Consult note [facility] Medical Records Department [address] [place] [address] Anesthesia Postop Eval I 01/01/25 1622 MR#: [id number] Acct: [id number] Name: MARIETTA TEMPLE Rep #:[id number] : 1945 79 From: Andres Ayoub RNA PCP: Dr. Marika Park MD Status:AD M IN Y Race: C Location: [place] [address] 0-1 Anesthesia: Postop Eval I Current Vital Signs Temperature: 97 F Pulse Rate: 65 Blood Pressure: 123/76 Respiratory Rate: 16 Pulse Ox: 100 Oxygen Delivery Method: Room Air Assessment Airway patent: Yes Spontaneous unlabored respirations: Yes Mental status: Awake nausea: No Vomiting: No Anesthesia Complication: No Fluid Hydration Crystalloid volume administer (ml): 200 Total IV fluid infused: 200 Progress Note Anesthesia document: Postop Eval 1 completed: Yes 01/01/25 1632 PIPE FINISHING SUPERVISOR> Date _ Andres Omer PIPE FINISHING SUPERVISOR Cosigner Signature: Date CC: ~ Signed [facility]06-03-2025 Consult note [facility] Medical Records Department [address] [place] [address] Pre-Anesthesia Evaluation 01/01/25 1524 MR#: [id number] Acct: [id number] Name: MARIETTA TEMPLE Rep #:[id number] : 1945 79 From: Alejandro Malloy MD PCP: Dr. Marika Park MD Status:AD M IN Y Race: C Location: [place] [address] 0-[address] Alejandro Malloy MD on 01/01/25 at 1540 Addendum Patient's lower partial is out. 01/01/25 1540 la MD> Date _ Alejandro Malloy MD cc: ~* Signed ASA Classification* ASA Classification ASA Classification: 3 Assessment & Plan Anesthesia* Anesthesia Assessment Anesthesia Assessment: Discussed sedation and/or anesthesia options, risks, benefits, and alternatives with patient/parents/legal guardian/POA. Questions invited. The patient/parents/legal guardian/POA seems to understand and agrees to proceedwith anesthesia plan. Reviewed the physical assessment, medical history, allergy history and patient home medications list prior to surgery/procedure/anesthetic and documented any changes. Performed airway and anesthesia risk assessments. Anesthesia Type Anesthesia Type: MAC History Source History Obtained from:: Patient and Chart Anesthesia Focused Assessment* Temperature: 98.2 F Pulse Rate: 67 Blood Pressure: 122/49 Respiratory Rate: 16 Pulse Ox: 99 Oxygen Delivery Method: Room Air Airway Assessment Mouth opens: >3 cm Mallampati Score: II Teeth Condition: Dentures (Patient has full upper dentures.) Neck Range of motion (ROM): Limited ROM (Slight decrease in extension.) Focused Labs Anesthesia Preop lab: CBC WBC 7.3 K/mm3 (4.4-11.0) 01/01/25 05:25 01/01/25 RBC 3.04 M/mm3 (4.2-5.4) L 01/01/25 05:25 01/01/25 Hgb 8.3 g/dL (12.0-15.0) L 01/01/25 11:39 01/01/25 Hct 26.0 % (37-47) L 01/01/25 11:39 01/01/25 Plt Count 304 K/mm3 (150-450) 01/01/25 05:25 01/01/25 CHEMISTRY Potassium 3.5 mmol/L (3.3-5.1) 01/01/25 05:25 01/01/25 Sodium 140 mmol/L (133-145) 01/01/25 05:25 01/01/25 Magnesium 2.0 mg/dL (1.5-2.2) 01/01/25 05:25 01/01/25 Phosphorus 3.3 mg/dL (2.7-4.5) 01/01/25 05:01/01/25 BUN 13 mg/dL (4-19) 01/01/25 05:25 01/01/25 Creatinine 0.84 mg/dL (0.70-1.20) 01/01/25 05:01/01/25 Glucose 97 mg/dL (70-99) 01/01/25 05:25 01/01/25 TSH 4.640 uIU/mL (0.358-3.740) H 08/15/24 05:06 COAG PT 14.9 SECONDS (11.7-14.9) 01/01/25 05:25 Pre-Assessment Diagnosis/Proposed Procedure Planned Operative Procedure(s): Esophagogastroduodenoscopy with possible cauteryand/or injection therapy. Anesthesia History Anesthesia History - collateral clerk: Anesthesia History - collateral clerk Hx Hospitalization Any Problems With Anesthesia No 12/31/24 22:58 Cholinesterase deficiency No 12/31/24 22:58 You/Your Family Experience No 12/31/24 22:58 fever (hyperthermia) with Relationship Recent Exposure to Contagious No 12/31/24 22:58 Disease Does patient have nerve No 12/31/24 22:58 stimulator Patient instructed to have No 12/31/24 22:58 device shut off --Does patient have Pacemaker No 01/01/25 14:16 or ICD? When Was Last Pacemaker Check QUESTION #4 FULL TEXT: You/Your Family Experience fever (hyperthermia) with Anesthesia Last Oral Intake Last Oral intake: Last Oral Intake NPO since 00:00 01/01/25 14:16 Meds taken in AM with sips of Yes 01/01/25 14:16 water? Meds patient instructed to 50mg metoprolol at 0839 01/01/25 14:16 take am of surgery PONV PONV - collateral clerk: PONV - collateral clerk Female HX of Motion Sickness HX of N/V After Surgery Non-Smoker Duration of Surgery greater than 60 minutes Number of Risk Factors PONV Score Height & Weight Height & Weight: Anesthesia: Height & Weight Height 5 ft 4 in 01/01/25 14:16 Weight: 89.6 kg 01/01/25 14:16 Body Mass Index (BMI) 33.9 01/01/25 14:16 Respiratory Assessment Respiratory Assessment - collateral clerk: Respiratory Tract Infection Hx - collateral clerk Hx Respiratory Tract Infection No 12/31/24 22:58 STOP Sleep Apnea STOP Sleep Apnea - collateral clerk: STOP Sleep Apnea - collateral clerk Hx Hypertension Yes 01/01/25 12:10 Hx Sleep Apnea No 12/31/24 15:09 CPAP BIPAP Do you snore loudly (louder No 12/31/24 15:09 than talking or can be heard Do you often feel tired/ No 12/31/24 15:09 fatigued/ sleepy during daytime? Has anyone observed you stop No 12/31/24 15:09 breathing during sleep? STOP Results Negative 12/31/24 15:09 QUESTION #5 FULL TEXT : Do you snore loudly (louder than talking or can be heard through closeddoors)? Tobacco Use History Tobacco Use History - collateral clerk: Tobacco Use History - collateral clerk Tobacco Use Smoking Status Former smoker 12/31/24 15:09 Hx Tobacco Use No 12/31/24 15:09 Years Smoking Packs Smoked per Day Smoking Cessation Date was No - quit smoking greater 12/31/24 15:09 within the last 15 years than 15 years ago Hx Smoking Cessation Date 12/28/99 12/31/24 15:09 Hx Smoking Cessation No 12/31/24 15:09 Counseling Hematologic Medial History Hematologic Hx - collateral clerk: Hematologic Medical Hx - bull bucker Hx of Blood Transfusion No 12/31/24 15:09 Hx of Transfusion in last 3 No 12/31/24 15:09 Months Date of Last Transfusion (if within last 3 months) Ever experience any problems No 12/31/24 15:09 with transfusion(s)? Specify any problems Hx of Preganancy in last 3 No 12/31/24 15:09 Months Nurse Filling Out Transfusion DEJAH 12/31/24 15:09 & Questions: Date: 12/31/24 12/31/24 15:09 Time: 16:25 12/31/24 15:09 Patient unable to answer at this time (ie. confused, unrespo /Reproduction History /Reproductive History - collateral clerk: /Reproductive Hx- collateral clerk Hx Now No 12/31/24 22:58 Gestational Age (in weeks): EDC: Hx Hx Para Hx Section SAB No 12/31/24 22:58 Active Medications Active Medications: Current Medications Generic Name Dose Route Start Last Admin Trade Name Freq PRN Reason Stop Dose Admin Acetaminophen 650 mg 12/31/24 15:09 Acetaminophen 325 Mg Tablet PO Q6H PRN PRN Pain 1-10 Or Fever >100.7 Albuterol Sulfate 2.5 mg 12/31/24 15:32 01/01/25 07:22 Albuterol 2.5 Mg/3 Ml Vial.Neb. INHALATION 2.5 mg Q6HWA.RT EDITA Administration Albuterol Sulfate 2.5 mg 12/31/24 15:09 Albuterol 2.5 Mg/3 Ml Vial.Neb. INHALATION Q2H PRN PRN SOB &/OR WHEEZING Budesonide 0.5 mg 12/31/24 15:45 12/31/24 22:15 Budesonide Respules 0.5 Mg/2 Ml Ampul.Neb. INHALATION 0.5 mg Q12H.RT EDITA Administration Cholecalciferol 50 mcg 01/01/25 10:00 Cholecalciferol (Vit D3) 25 Mcg Tablet (1,000 Units) PO DAILY EDITA Pantoprazole Sodium 80 mg/ 100 mls @ 10 mls/hr 12/31/24 15:09 01/01/25 14:30 Sodium Chloride CONT INF 01/03/25 15:10 0 mls/hr Q10H EDITA Infusion Sodium Chloride 250 mls @ 15 mls/hr 12/31/24 15:10 01/01/25 13:00 IV Infused .[id number] PRN Infusion Saline Flush Lactated Ringer's 1,000 mls @ 15 mls/hr 01/01/25 14:45 01/01/25 14:50 IV 15 mls/hr .Q48H EDITA Administration Levothyroxine Sodium 112 mcg 01/01/25 06:00 01/01/25 00:22 Levothyroxine 112 Mcg Tablet PO 112 mcg DAILY@0600 EDITA Administration Metoprolol Succinate 50 mg 12/31/24 22:00 01/01/25 08:39 Metoprolol(Xl)Succ 50 Mg Tablet PO 50 mg BID EDITA Administration Protocol Ondansetron HCl 4 mg 12/31/24 15:09 Ondansetron 4 Mg/2 Ml Vial IV Q8H PRN PRN NAUSEA/VOMITING Pantoprazole Sodium 40 mg 01/04/25 10:00 Pantoprazole Sodium 40 Mg Tablet PO BID [facility] Sodium Chloride 10 - 40 ml 12/31/24 15:10 01/01/25 14:29 0.9% Saline Lock 10 Ml Syringe IV 10 ml UD PRN Administration SALINE FLUSH PFSH Medical History Other nonspecific abnormal finding of lung field 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 Symptomatic menopausal or female climacteric states Vaginal enterocele, congenital or acquired Postmenopausal atrophic vaginitis Rectocele Plantar fasciitis Pain in joint, shoulder region Nontoxic multinodular goiter Indeterminate pulmonary nodules Hemorrhage of gastrointestinal tract, unspecified Cystocele, midline Benign neoplasm of colon Colon polyp Dyspnea on exertion Chest pain, unspecified Essential hypertension Ventricular ectopy Premature atrial contraction Paroxysmal atrial flutter Vision problems Thyroid cancer Skin cancer Osteoarthritis IBS (irritable bowel syndrome) Cancer Arthritis Ataxia Home Medications ?Medication ?Instructions ?Recorded ?Last Taken ?Type conjugated estrogens 0.625 mg/gram 1 dose vaginal .COM PLEX dryness 10/09/13 02/08/19 History vaginal cream magnesium oxide 200 mg PO DAILY 10/24/1909/25 History multivitamin 1 cap PO DAILY 10/24/1909/25 History triamterene 37.5 1 tab PO QODAY 07/16/2109/25 History mg-hydrochlorothiazide 25 mg tablet cholecalciferol (vitamin D3) 50 50 mcg PO DAILY 12/31/24 History mcg (2,000 unit) tablet coenzyme Q10 10 mg capsule 10 mg PO ONCE 01/07/2309/25 History levothyroxine 112 mcg tablet 112 mcg PO DAILY 01/07/23 12/30/24 History spacer #1 ea 02/22/23 Unknown Rx spacer #1 ea 03/21/23 Unknown Rx lactobacillus combination no.4 3 3,000 mmu cells PO DA ASHWIN supplement 08/15/24 12/31/24 History billion cell capsule (Probiotic) fluticasone propionate 230 2 inh inhalation BID #3 ea 09/18/24 12/31/24 Rx mcg-salmeterol 21 mcg/actuation HFA inhaler (Advair HFA) metoprolol succinate 50 mg 50 mg PO BID 90 days #180 t abs 09/28/24 01/01/25 Rx tablet,extended release 24 hr apixaban 5 mg tablet (Eliquis) 5 mg PO BID 12/31/24 History losartan 100 mg tablet 100 mg PO DAILY 12/31/2409/25 History triamterene 37.5 2 tab PO QODAY 12/31/2408/25 History mg-hydrochlorothiazide 25 mg tablet Allergy/AdvReac Type Severity Reaction Status Date / Time Sulfa (Sulfonamide Allergy Rash Verified 12/31/24 10:33 Antibiotics) codeine AdvReac Nausea Verified 12/31/24 10:33 Family History Father , 1977 Alcoholism Emphysema of lung Sister , 2016 ANGINA Cancer Diabetes CVA (cerebral vascular accident) Thyroid disorder Uterine cancer Brother Cancer Diabetes Mother Diabetes Myocardial infarction Heart disease 1964-59 YEARS Hypertension Surgical History History of cholecystectomy History of thyroidectomy Hx of breast reduction, elective History of bilateral knee replacement Social History Smoking Status: Former smoker how long ago did patient quit smokin alcohol intake: never substance use type: does not use caffeine: Yes Type: coffee Number of servings: 4 and tea Review of Systems (Anesthesia) ROS Narrative System reviewed and no additional complaints, except as documented. 01/01/25 1539 giuseppe MEYERS> Date _ Alejandro Malloy MD Cosigner Signature: Date CC: ~ Signed [facility]06-03-2025 Progress note [facility] Medical Records Department [address] [place] [address] Progress Note 01/01/25 1519 MR#: [id number] Acct: [id number] Name: MARIETTA TEMPLE Rep #:[id number] : 1945 79 From: Austin Friend PCP: Dr. Marika Park MD Status:AD M IN Location: [place] [address] Progress Note Patient has been n.p.o. all day. She has been off anticoagulation. She has notseen any more dark stools. Physical Exam Const alert, oriented x3, no apparent distress and healthy appearing General Appearance: cooperative GI normal to inspection, nondistended, normoactive bowel sounds, soft to palpation,non-tender and non-distended Percussion: normal to percussion Rectal Exam: deferred Assessment & Plan Assessment/Plan (1) GIB (gastrointestinal bleeding): PLAN: 79-year-old on Eliquis comes in with melanotic stools discovered to have hemoglobin of 5.8. Likely upper GI bleed versus small bowel bleed versus lower GI bleed. She should undergo an upper endoscopy. She was explained alternatives, risk and benefits including withstanding bleeding, pressure,subs,perforation, need for charge and . Have an ASA of 3. PLAN: Plan 01/01/2025-all labs reviewed and patient questions and concerns were answered prior to the procedure.She was explained alternatives, risk and benefits include not withstanding bleeding, infection, sepsis, perforation, need for urgent . She will have an ASA of 3. Visit Charges Inpatient E&M: 30385 Subs Hosp L2 01/01/25 3777 Austin Friend DO Cosigner Signature (if applicable): CC: ~ Signed [facility]06-03-2025 Progress note Author Carrillo Strong [facility] Note Date/Time January 01, 2025 9:28a m [facility] Medical Records Department [address] [place] [address] Progress Note - Hospitalist 01/01/25 0918 MR#: [id number] Acct: [id number] Name: MARIETTA TEMPLE Rep #:[id number] : 1945 79 From: Carrillo Strong MD PCP: Dr. Marika Park MD Status:AD M IN Location: [place] [address] Reason for Visit Reason for Visit: Diagnoses Anemia, unspecified (12/31/24) Melena (12/31/24) Gastrointestinal hemorrhage, unspecified (12/31/24) Other forms of dyspnea (12/31/24) Weakness (12/31/24) Unspecified adverse effect of drug or medicament, initial encounter (12/31/24) [facility] (current) use of anticoagulants (12/31/24) Personal history of other diseases of the circulatory system (12/31/24) Subjective Subjective Patient is an 79-year-old lady who presented with fatigue found to have hemoglobin of 5.8 Objective Data Objective Data Vital Signs: Vital Signs Temp Pulse Resp BP Pulse Ox O2 Del Method 98.0 F 71 16 132/64 H 97 Room Air 01/01/25 08:30 01/01/25 08:39 01/01/25 08:30 01/01/25 08:30 01/01/25 08:30 01/01/25 08:30 Oxygen Delivery Method Room Air Weight: 89.6 kg Body Mass Index (BMI) 33.9 Intake & Output: Intake and Output for Last 24 Hours 12/30/24 12/31/24 01/01/25 23:59 23:59 23:59 Intake Total 879.5 / 1329.5 526.83 / 526.83 Balance 879.5 / 1329.5 526.83 / 526.83 Lab / Micro Data 01/01/25 05:25 01/01/25 05:25 Labs: Laboratory Results - last 24 hr 12/31/24 11:55: WBC Cancelled, Corrected WBC Cancelled, RBC Cancelled, Hgb Cancelled, Hct Cancelled, MCV Cancelled, MCH Cancelled, MCHC Cancelled, RDW Std Deviation Cancelled, RDW Coeff of Carmine Cancelled, Plt Count Cancelled, MPV Cancelled, Immature Gran % (Auto) Cancelled, Neut % (Auto) Cancelled, Lymph % (Auto) Cancelled, Nobles % (Auto) Cancelled, Eos % (Auto) Cancelled, Baso % (Auto)Cancelled, Absolute Neuts (auto) Cancelled, Absolute Lymphs (auto) Cancelled, Total Counted Cancelled, Neutrophils % (Manual) Cancelled, Band Neutrophils % Cancelled, Lymphocytes % (Manual) Cancelled, Monocytes % (Manual) Cancelled, Eosinophils % (Manual) Cancelled, Basophils % (Manual) Cancelled, Metamyelocytes% Cancelled, Myelocytes % Cancelled, Promyelocytes % Cancelled, Blast Cells % Cancelled, Plasma Cell % (Manual) Cancelled, Other Cells % Cancelled, Nucleated RBC % Cancelled, Nucleated RBCs/100 WBC Cancelled, Differential Comment Cancelled, Diff Path Review Cancelled, Hypersegmented Neuts Cancelled, Atypical Lymphocytes Cancelled, Reactive Lymphocytes Cancelled, Smudge Cells Cancelled, Toxic Granulation Cancelled, Toxic Vacuolation Cancelled, Dohle Bodies Cancelled, Naz Rods Cancelled, Platelet Estimate Cancelled, Plt Morphology Comment Cancelled, RBC Morphology Cancelled 12/31/24 11:55: RBC Morphology Cancelled, Polychromasia Cancelled, HypochromasiaCancelled, Basophilic Stippling Cancelled, Anisocytosis Cancelled, Microcytosis Cancelled, Macrocytosis Cancelled, Spherocytes Cancelled, Sickle Cells Cancelled, Target Cells Cancelled, Tear Drop Cells Cancelled, Ovalocytes Cancelled, Stomatocytes Cancelled, [place] Bodies Cancelled, [place] Cells Cancelled, Bite Cells Cancelled, Crenated Cell Cancelled, Acanthocytes (Spur) Cancelled, Rouleaux Cancelled, Schistocytes Cancelled, Sodium 137, Potassium 3.4, Chloride 101, Carbon Dioxide 22.3, Anion Gap 14, BUN 20 H, Creatinine 0.88,Est GFR (MDRD) Non-Af 66, BUN/Creatinine Ratio 23.2 H, Glucose 113 H, Calcium 9.4, Troponin T High Sens 10 12/31/24 12:30: WBC 9.0, RBC 2.48 L, Hgb 6.2 L, Hct 20.1 L, MCV 81.0, MCH 25.0 L, MCHC 30.8 L, RDW Std Deviation 44.1 H, RDW Coeff of Carmine 15.0 H, Plt Count 330,MPV 10.6, Immature Gran % (Auto) 0.600, Neut % (Auto) 72.2 H, Lymph % (Auto) 15.4 L, Nobles % (Auto) 10.5 H, Eos % (Auto) 1.1, Baso % (Auto) 0.2, Absolute Neuts (auto) 6.5, Absolute Lymphs (auto) 1.39, Nucleated RBC % 0 12/31/24 14:45: Blood Type O POSITIVE, Antibody Screen NEGATIVE, Crossmatch See Detail 12/31/24 15:28: Hgb 5.8 L*, Hct 19.2 L, Troponin T Hi Sens 2 Hr 10 12/31/24 23:45: Hgb 7.8 L, Hct 24.5 L 01/01/25 05:25: WBC 7.3, RBC 3.04 L, Hgb 7.8 L, Hct 24.3 L, MCV 79.9 L, MCH 25.7L, MCHC 32.1, RDW Std Deviation 42.9, RDW Coeff of Carmine 14.7 H, Plt Count 304, MPV 10.0, Immature Gran % (Auto) 0.500, Neut % (Auto) 60.1, Lymph % (Auto) 24.7,Nobles % (Auto) 12.4 H, Eos % (Auto) 2.0, Baso % (Auto) 0.3, Absolute Neuts (auto)4.4, Absolute Lymphs (auto) 1.81, Nucleated RBC % 0, PT 14.9, INR 1.1, APTT 31.9, Sodium 140, Potassium 3.5, Chloride 104, Carbon Dioxide 26.3, Anion Gap 9,BUN 13, Creatinine 0.84, Estim Creat Clear Calc 57.90, Est GFR (MDRD) Non-Af 70,BUN/Creatinine Ratio 15.7, Glucose 97, Calcium 8.9, Phosphorus 3.3, Magnesium 2.0, Total Bilirubin 0.58, Direct Bilirubin 0.24, AST 21, ALT 19, Alkaline Phosphatase 81, Total Protein 5.9, Albumin 3.5, Globulin 2.4, Albumin/Globulin Ratio 1.5 Radiography Diagnostic Testing: Radiology Impression Chest X-Ray 12/31/24 11:35 IMPRESSION: No acute cardiopulmonary process. Reading Location: [facility] Rhythm Strip Rhythm Strip: Sinus Rhythm Rate: 75 Ectopy: None Physical Exam Narrative GENERAL: cooperative HEENT: Atraumatic; normocephalic EYES; Anicteric, Normal Conjunctiva NECK; supple, normal thyroid, RESPIRATORY: Diminished to auscultation CARDIOVASCULAR: Regular S1 S2, GI: soft, normoactive bowel sounds, : No Renal angle tenderness; EXTREMITIES: No edema, no clubbing, MUSCULOSKELETAL: no muscle wasting NEURO: Awake; no lateralizing signs. SKIN: No Rash PSYCH; Flat affect Assessment & Plan Assessment/Plan (1) Melena: PLAN: Plan Patient is an 79-year-old lady admitted with GI bleed?melena with associated fatigue 1.Acute GI bleed ? Suspected to be secondary to upper GI bleed exacerbated by the use of apixaban. Patient hemoglobin on admission was 5.8. Admitted to a monitored bedpatient was transfused with 2 unit PRBC and. Eliquis held started on Protonix drip following a bolus. Consult placed to GI for endoscopy 2. Anemia ? Secondary to acute blood loss anemia management as discussed above; monitoringH&H and transfuse if patient becomes symptomatic or hemoglobin falls below 7 3. Paroxysmal atrial fibrillation ? Rate controlled on systemic anticoagulation with apixaban held given reasons above 4. Essential hypertension ? Patient antihypertensives held on admission given relative hypotension 5. Class I obesity with BMI of 34 ? Complicating care weight loss advised 6. History of thyroid cancer status post thyroidectomy ? Patient is on replacement therapy with levothyroxine 7. Generalized osteoarthritis ? Pain meds as needed 8. DVT prophylaxis ? Chemoprophylaxis contraindicated given patient presentation Time spent in the patient's overall evaluation,decision-making process, review of diagnostic data, adjustment of management, discussion with other providers, nursing nursing and ancillary staff involved in patient's care documentation, 52Minutes Charges/Coding Visit Charges Inpatient E&M: 03629 Subs Hosp L3 06/03/25 0928 <Electronically signed by Carrillo Strong MD> Cosigner Signature (if applicable): CC: ~ Signed [facility] Work Phone: [phone]) 140-791706-03-2025 Progress note [facility] Medical Records Department [address] [place] [address] Progress Note - Hospitalist 01/01/25917 MR#: [id number] Acct: [id number] Name: MARIETTA TEMPLE Rep #:[id number] : 1945 79 From: Carrillo Strong MD PCP: Dr. Marika Park MD Status:AD M IN Location: [place] [address] Reason for Visit Reason for Visit: Diagnoses Anemia, unspecified (12/31/24) Melena (12/31/24) Gastrointestinal hemorrhage, unspecified (12/31/24) Other forms of dyspnea (12/31/24) Weakness (12/31/24) Unspecified adverse effect of drug or medicament, initial encounter (12/31/24) [facility] (current) use of anticoagulants (12/31/24) Personal history of other diseases of the circulatory system (12/31/24) Subjective Subjective Patient is an 79-year-old lady who presented with fatigue found to have hemoglobin of 5.8 Objective Data Objective Data Vital Signs: Vital Signs Temp Pulse Resp BP Pulse Ox O2 Del Method 98.0 F 71 16 132/64 H 97 Room Air 01/01/25 08:30 01/01/25 08:39 01/01/25 08:30 01/01/25 08:30 01/01/25 08:30 01/01/25 08:30 Oxygen Delivery Method Room Air Weight: 89.6 kg Body Mass Index (BMI) 33.9 Intake & Output: Intake and Output for Last 24 Hours 12/30/24 12/31/24 01/01/25 23:59 23:59 23:59 Intake Total 879.5 / 1329.5 526.83 / 526.83 Balance 879.5 / 1329.5 526.83 / 526.83 Lab / Micro Data 01/01/25 05:25 01/01/25 05:25 Labs: Laboratory Results - last 24 hr 12/31/24 11:55: WBC Cancelled, Corrected WBC Cancelled, RBC Cancelled, Hgb Cancelled, Hct Cancelled, MCV Cancelled, MCH Cancelled, MCHC Cancelled, RDW Std Deviation Cancelled, RDW Coeff of Carmine Cancelled, Plt Count Cancelled, MPV Cancelled, Immature Gran % (Auto) Cancelled, Neut % (Auto) Cancelled, Lymph % (Auto) Cancelled, Nobles % (Auto) Cancelled, Eos % (Auto) Cancelled, Baso % (Auto)Cancelled, Absolute Neuts (auto) Cancelled, Absolute Lymphs (auto) Cancelled, Total Counted Cancelled, Neutrophils % (Manual) Cancelled, Band Neutrophils % Cancelled, Lymphocytes % (Manual) Cancelled, Monocytes %(Manual) Cancelled, Eosinophils % (Manual) Cancelled, Basophils % (Manual) Cancelled, Metamyelocytes% Cancelled, Myelocytes % Cancelled, Promyelocytes % Cancelled, Blast Cells % Cancelled, Plasma Cell % (Manual) Cancelled, Other Cells % Cancelled, Nucleated RBC % Cancelled, Nucleated RBCs/100 WBC Cancelled, Differential Comment Cancelled, Diff Path Review Cancelled, Hypersegmented Neuts Cancelled, Atypical Lymphocytes Cancelled, Reactive Lymphocytes Cancelled, Smudge Cells Cancelled, Toxic Granulation Cancelled, Toxic Vacuolation Cancelled, Dohle Bodies Cancelled, Naz Rods Cancelled, Platelet Estimate Cancelled, Plt Morphology Comment Cancelled, RBC Morphology Cancelled 12/31/24 11:55: RBC Morphology Cancelled, Polychromasia Cancelled, HypochromasiaCancelled, Basophilic Stippling Cancelled, Anisocytosis Cancelled, Microcytosis Cancelled, Macrocytosis Cancelled, Spherocytes Cancelled, Sickle Cells Cancelled, Target Cells Cancelled, Tear Drop Cells Cancelled, Ovalocytes Cancelled, Stomatocytes Cancelled, [place] Bodies Cancelled, [place] Cells Cancelled, Bite Cells Cancelled, Crenated Cell Cancelled, Acanthocytes (Spur) Cancelled, Rouleaux Cancelled, Schistocytes Cancelled, Sodium 137, Potassium 3.4, Chloride 101, Carbon Dioxide 22.3, Anion Gap 14, BUN 20 H,Creatinine 0.88,Est GFR (MDRD) Non-Af 66, BUN/Creatinine Ratio 23.2 H, Glucose 113 H, Calcium 9.4, Troponin T High Sens 10 12/31/24 12:30: WBC 9.0, RBC 2.48 L, Hgb 6.2 L, Hct 20.1 L, MCV 81.0, MCH 25.0 L, MCHC 30.8 L, RDW Std Deviation 44.1 H, RDW Coeff of Carmine 15.0 H, Plt Count 330,MPV 10.6, Immature Gran % (Auto) 0.600,Neut % (Auto) 72.2 H, Lymph % (Auto) 15.4 L, Nobles % (Auto) 10.5 H, Eos % (Auto) 1.1, Baso % (Auto) 0.2, Absolute Neuts (auto) 6.5, Absolute Lymphs (auto) 1.39, Nucleated RBC % 0 12/31/24 14:45: Blood Type O POSITIVE, Antibody Screen NEGATIVE, Crossmatch See Detail 12/31/24 15:28: Hgb 5.8 L*, Hct 19.2 L, Troponin T Hi Sens 2 Hr 10 12/31/24 23:45: Hgb 7.8 L, Hct 24.5 L 01/01/25 05:25: WBC 7.3, RBC 3.04 L, Hgb 7.8 L, Hct 24.3 L, MCV 79.9 L, MCH 25.7L, MCHC 32.1, RDW Std Deviation 42.9, RDW Coeff of Carmine 14.7 H, Plt Count 304, MPV 10.0, Immature Gran % (Auto) 0.500, Neut % (Auto) 60.1, Lymph % (Auto) 24.7,Nobles % (Auto) 12.4 H, Eos % (Auto) 2.0, Baso % (Auto) 0.3, Absolute Neuts (auto)4.4, Absolute Lymphs (auto) 1.81, Nucleated RBC % 0, PT 14.9, INR 1.1, APTT 31.9,Sodium 140, Potassium 3.5, Chloride 104, Carbon Dioxide 26.3, Anion Gap 9,BUN 13, Creatinine 0.84, Estim Creat Clear Calc 57.90, Est GFR (MDRD) Non- Af 70,BUN/Creatinine Ratio 15.7, Glucose 97, Calcium 8.9, Phosphorus 3.3, Magnesium 2.0, Total Bilirubin 0.58, Direct Bilirubin 0.24, AST 21, ALT 19, Al kaline Phosphatase 81, Total Protein 5.9, Albumin 3.5, Globulin 2.4, Albumin/Globulin Ratio 1.5 Radiography Diagnostic Testing: Radiology Impression Chest X-Ray 12/31/24 11:35 IMPRESSION: No acute cardiopulmonary process. Reading Location: [facility] Rhythm Strip Rhythm Strip: Sinus Rhythm Rate: 75 Ectopy: None Physical Exam Narrative GENERAL: cooperative HEENT: Atraumatic; normocephalic EYES; Anicteric, Normal Conjunctiva NECK; supple, normal thyroid, RESPIRATORY: Diminished to auscultation CARDIOVASCULAR: Regular S1 S2, GI: soft, normoactive bowel sounds, : No Renal angle tenderness; EXTREMITIES: No edema, no clubbing, MUSCULOSKELETAL: no muscle wasting NEURO: Awake; no lateralizing signs. SKIN: No Rash PSYCH; Flat affect Assessment & Plan Assessment/Plan (1) Melena: PLAN: Plan Patient is an 79-year-old lady admitted with GI bleed?melena with associated fatigue 1.Acute GI bleed ? Suspected to be secondary to upper GI bleed exacerbated by the use of apixaban. Patient hemoglobin on admission was 5.8. Admitted to a monitored bedpatient was transfused with 2 unit PRBC and. Eliquis held started on Protonix drip following a bolus. Consult placed to GI for endoscopy 2. Anemia ? Secondary to acute blood loss anemia management as discussed above; monitoringH&H and transfuse if patient becomes symptomatic or hemoglobin falls below 7 3. Paroxysmal atrial fibrillation ? Rate controlled on systemic anticoagulation with apixaban held given reasons above 4. Essential hypertension ? Patient antihypertensives held on admission given relative hypotension 5. Class I obesity with BMI of 34 ? Complicating care weight loss advised 6. History of thyroid cancer status post thyroidectomy ? Patient is on replacement therapy with levothyroxine 7. Generalized osteoarthritis ? Pain meds as needed 8. DVT prophylaxis ? Chemoprophylaxis contraindicated given patient presentation Time spent in the patient's overall evaluation,decision-making process, review of diagnostic data, adjustment of management, discussion with other providers, nursing nursing and ancillary staff involved in patient's care documentation, 52Minutes Charges/Coding Visit Charges Inpatient E&M: 56330 Subs Hosp L3 01/01/25 0928 Cosigner Signature (if applicable): CC: ~ Signed [facility]06-02-2025 History and physical note Author Myranda Shirley [facility] Note Date/Time December 31, 2024 3:32p m [facility] Medical Records Department [address] [place] [address] H&P Exam - Hospitalist 12/31/24 1433 MR#: [id number] Acct: [id number] Name: MARIETTA TEMPLE Rep #:[id number] : 1945 79 From: Myranda Shirley DO PCP: Dr. Marika Park MD Status:AD M IN Location: [facility] [id number] HPI - General General Date of Admission: 12/31/24 Date of Service: 12/31/24 Chief Complaint: Fatigue/Exertional Dyspnea HPI Narrative MARIETTA TEMPLE, is a 79 F who presented to the emergency department at [facility] on 12/31/2024 with a chief complaint of shortness of breath with exertion and fatigue. Patient reported that since Tuesday she has been experiencing generalized weakness and fatigue. At times she was having chest discomfort however she is not currently having any. She indicated she just doesnot seem to have any energy. She denied any fever or chills. She has had no vomiting or diarrhea. She has had no constipation. She does indicate that her stool has been darker than usual and she is on Eliquis for history of atrial fibrillation/flutter. Patient indicated that her stool has been darker than typical for several months now. She was unable to give me an exact timeframe. She stated she had 2 very dark bowel movements that were blowouts over the weekend. 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 She states her stools are never hard and always soft. Her last dose of Eliquis was on the morning of presentation. She has never had this issue before. Her last colonoscopy was outpatient at [facility] in 2022. She has never had an EGD. Vital signs on presentation showed temperature of 98, heart rate 76, respiratoryrate 16, blood pressure is 137/67, pulse ox was 97% on room air. CBC showed a marked anemia with a hemoglobin of 6.2. This was normocytic. Her most recent CBC we have on record is from August 2024 at which time she was 13.5. Chemistry panel was unremarkable. BUN/creatinine ratio was not all that significant. With a BUN of 20 and a serum creatinine of 0.88. Initial troponinwas 10 with a delta pending. Chest x-ray was unremarkable for acute findings. EKG showed no evidence of acute ischemia. She is currently normal sinus rhythm. In the emergency department she was given acetaminophen 1 g x 1 dose and ordered4 units of blood with 2 to be on hold and to to be given. Per discussion with ER physician Dr. Jaimes was consulted by the emergency department and will evaluate the patient on the medical floor. 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 Symptomatic menopausal or female climacteric states Vaginal enterocele, congenital or acquired Postmenopausal atrophic vaginitis Rectocele Plantar fasciitis Pain in joint, shoulder region Nontoxic multinodular goiter Indeterminate pulmonary nodules Hemorrhage of gastrointestinal tract, unspecified Cystocele, midline Benign neoplasm of colon Colon polyp Dyspnea on exertion Chest pain, unspecified Essential hypertension Ventricular ectopy Premature atrial contraction Paroxysmal atrial flutter Vision problems Thyroid cancer Skin cancer Osteoarthritis IBS (irritable bowel syndrome) Cancer Arthritis Ataxia Home Medications ?Medication ?Instructions ?Recorded ?Last Taken ?Type conjugated estrogens 0.625 mg/gram 1 dose vaginal .COM PLEX dryness 10/09/13 02/08/19 History vaginal cream magnesium oxide 200 mg PO DAILY 10/24/1909/25 History multivitamin 1 cap PO DAILY 10/24/1909/25 History triamterene 37.5 1 tab PO QODAY 07/16/2109/25 History mg-hydrochlorothiazide 25 mg tablet cholecalciferol (vitamin D3) 50 50 mcg PO DAILY 12/31/24 History mcg (2,000 unit) tablet coenzyme Q10 10 mg capsule 10 mg PO ONCE 01/07/2309/25 History levothyroxine 112 mcg tablet 112 mcg PO DAILY 01/07/23 12/30/24 History spacer #1 ea 02/22/23 Unknown Rx spacer #1 ea 03/21/23 Unknown Rx lactobacillus combination no.4 3 3,000 mmu cells PO DA ASHWIN supplement 08/15/24 12/31/24 History billion cell capsule (Probiotic) fluticasone propionate 230 2 inh inhalation BID #3 ea 09/18/24 12/31/24 Rx mcg-salmeterol 21 mcg/actuation HFA inhaler (Advair HFA) metoprolol succinate 50 mg 50 mg PO BID 90 days #180 t abs 09/28/24 12/31/24 Rx tablet,extended release 24 hr apixaban 5 mg tablet (Eliquis) 5 mg PO BID 12/31/24 History losartan 100 mg tablet 100 mg PO DAILY 12/31/2409/25 History triamterene 37.5 2 tab PO QODAY 12/31/2408/25 History mg-hydrochlorothiazide 25 mg tablet Allergy/AdvReac Type Severity Reaction Status Date / Time Sulfa (Sulfonamide Allergy Rash Verified 12/31/24 10:33 Antibiotics) codeine AdvReac Nausea Verified 12/31/24 10:33 Family History Father , 1977 Alcoholism Emphysema of lung Sister , 2016 ANGINA Cancer Diabetes CVA (cerebral vascular accident) Thyroid disorder Uterine cancer Brother Cancer Diabetes Mother Diabetes Myocardial infarction Heart disease 1964-58 YEARS Hypertension Surgical History History of cholecystectomy History of thyroidectomy Hx of breast reduction, elective History of bilateral knee replacement Social History Smoking Status: Former smoker how long ago did patient quit smokin alcohol intake: never substance use type: does not use caffeine: Yes Type: coffee Number of servings: 4 and tea ROS Constitutional Constitutional: Reports fatigue and weakness; Denies anorexia, change in weight,chills, fever(s), malaise, night sweats or other Eyes Eyes: Denies blurry vision, change in eye color, change in vision, discharge from eye(s), double vision, erythema, eye pain, loss of vision or other ENT HEENT: Denies abnormal hearing, dysphagia, ear pain, epistaxis, headache(s), hearing loss, nasal congestion, nasal discharge, post nasal drip, sinus pressure, sore throat or other Cardiovascular Cardiovascular: Reports dyspnea on exertion, edema and other Details: Intermittent chest discomfort ; Denies chest pain, claudication, lightheadedness, orthopnea, palpitations, paroxysmal nocturnal dyspnea, rapid heart rate or syncope Respiratory/Chest Respiratory/Chest: Reports shortness of breath with exertion; Denies cough, dyspnea, excessive phlegm production, hemoptysis, productive cough, shortness ofbreath at rest, wheezing or other Gastrointestinal Gastrointestinal: Reports melena; Denies abdominal pain, coffee ground emesis, constipation, diarrhea, dyspepsia, hematemesis, hematochezia, loose stools, nausea, vomiting or other Genitourinary Genitourinary: Denies burning urination, difficulty urinating, dysuria, hematuria, nocturia, urinary frequency, urinary hesitancy, urinary incontinence,urinary urgency or other Musculoskeletal Musculoskeletal: Denies arthralgias, back pain, joint pain, joint stiffness, joint swelling, myalgias, neck pain or other Neurologic Neurologic: Denies abnormal gait, abnormal speech, confusion, disequilibrium, dizziness, focal weakness, headache(s), numbness, paresthesias, seizure-like activity, seizures, syncope, tingling, tremor(s) or other Psychiatric Psychiatric: Denies anxiety, depression, homicidal ideation, suicidal ideation or other Endocrine Endocrinology: Denies change in body appearance, cold intolerance, excessive sweating, heat intolerance, polydipsia, polyuria or other Hematologic/Lymphatic Hematologic/Lymphatic: Reports easy bleeding and easy bruising; Denies anemia, lymphadenopathy or other Allergic/Immunologic Allergic/Immunologic: Denies rhinitis, hives, eczemia, asthma or other Vital Signs Vital Signs Vital Signs: 12/31/24 10:33 12/31/24 11:33 12/31/24 12:00 Temperature 98 F Temperature Source Oral Pulse Rate 76 72 70 Respiratory Rate 16 16 16 Respiratory Pattern Blood Pressure 137/67 H 100/60 106/41 L Blood Pressure Mean 90 73 62 Pulse Ox 97 96 97 Oxygen Delivery Method Room Air Room Air 12/31/24 12:00 12/31/24 13:35 Temperature Temperature Source Pulse Rate 70 Respiratory Rate 10 L Respiratory Pattern Normal Blood Pressure 111/54 L Blood Pressure Mean 73 Pulse Ox 100 Oxygen Delivery Method Room Air Weight Weight: 88.496 kg Body Mass Index (BMI) 33.5 Physical Exam Const alert, oriented x3, no apparent distress and well nourished; Negative for average body habitus Constitutional Narrative: elderly, obese, white female, sitting up in bed, appears comfortable, nontoxic, very pleasant General Appearance: cooperative HEENT normocephalic, head/scalp atraumatic and moist oral mucous membranes; Negative for hearing grossly normal bilaterally HEENT Narrative: Mild hearing loss, dentures in place, Mallampati 3, no thrush Eyes Eyes Narrative: Conjunctiva are considerably pale upon laterally, no scleral icterus Neck no lymphadenopathy and supple Neck Narrative: Trachea midline Resp normal respiratory effort, no retractions, no use of accessory muscles and clearto auscultation bilaterally Auscultation: Negative for rales, rhonchi or wheezes Cardio regular rate, regular rhythm, S1 normal heart sound, S2 normal heart sound, no rub, no gallops and no clicks; Negative for no murmurs Cardio Narrative: 2 out of 6 systolic murmur loudest at the right upper sternal border GI normal to inspection, nondistended, normoactive bowel sounds, soft to palpation and non-tender Extremity Extremity Narrative: Trace bilateral lower extremity pitting edema that is chronic, no cyanosis or clubbing Skin Skin Narrative: Skin is pale, skin changes consistent with previous sun exposure Neuro oriented x3, CN's II-XII intact bilaterally, moves all extremities and no focal motor deficits Speech: speech normal Psych affect normal Psych Narrative: Extremely pleasant, interacts appropriately, eye contact is good Results Lab / Micro Data 12/31/24 12:30 12/31/24 11:55 Labs: Laboratory Results - last 24 hr 12/31/24 11:55: WBC Cancelled, Corrected WBC Cancelled, RBC Cancelled, Hgb Cancelled, Hct Cancelled, MCV Cancelled, MCH Cancelled, MCHC Cancelled, RDW Std Deviation Cancelled, RDW Coeff of Carmine Cancelled, Plt Count Cancelled, MPV Cancelled, Immature Gran % (Auto) Cancelled, Neut % (Auto) Cancelled, Lymph % (Auto) Cancelled, Nobles % (Auto) Cancelled, Eos % (Auto) Cancelled, Baso % (Auto)Cancelled, Absolute Neuts (auto) Cancelled, Absolute Lymphs (auto) Cancelled, Total Counted Cancelled, Neutrophils % (Manual) Cancelled, Band Neutrophils % Cancelled, Lymphocytes % (Manual) Cancelled, Monocytes % (Manual) Cancelled, Eosinophils % (Manual) Cancelled, Basophils % (Manual) Cancelled, Metamyelocytes% Cancelled, Myelocytes % Cancelled, Promyelocytes % Cancelled, Blast Cells % Cancelled, Plasma Cell % (Manual) Cancelled, Other Cells % Cancelled, Nucleated RBC % Cancelled, Nucleated RBCs/100 WBC Cancelled, Differential Comment Cancelled, Diff Path Review Cancelled, Hypersegmented Neuts Cancelled, Atypical Lymphocytes Cancelled, Reactive Lymphocytes Cancelled, Smudge Cells Cancelled, Toxic Granulation Cancelled, Toxic Vacuolation Cancelled, Dohle Bodies Cancelled, Naz Rods Cancelled, Platelet Estimate Cancelled, Plt Morphology Comment Cancelled, RBC Morphology Cancelled 12/31/24 11:55: RBC Morphology Cancelled, Polychromasia Cancelled, HypochromasiaCancelled, Basophilic Stippling Cancelled, Anisocytosis Cancelled, Microcytosis Cancelled, Macrocytosis Cancelled, Spherocytes Cancelled, Sickle Cells Cancelled, Target Cells Cancelled, Tear Drop Cells Cancelled, Ovalocytes Cancelled, Stomatocytes Cancelled, [place] Bodies Cancelled, [place] Cells Cancelled, Bite Cells Cancelled, Crenated Cell Cancelled, Acanthocytes (Spur) Cancelled, Rouleaux Cancelled, Schistocytes Cancelled, Sodium 137, Potassium 3.4, Chloride 101, Carbon Dioxide 22.3, Anion Gap 14, BUN 20 H, Creatinine 0.88,Est GFR (MDRD) Non-Af 66, BUN/Creatinine Ratio 23.2 H, Glucose 113 H, Calcium 9.4, Troponin T High Sens 10 12/31/24 12:30: WBC 9.0, RBC 2.48 L, Hgb 6.2 L, Hct 20.1 L, MCV 81.0, MCH 25.0 L, MCHC 30.8 L, RDW Std Deviation 44.1 H, RDW Coeff of Carmine 15.0 H, Plt Count 330,MPV 10.6, Immature Gran % (Auto) 0.600, Neut % (Auto) 72.2 H, Lymph % (Auto) 15.4 L, Nobles % (Auto) 10.5 H, Eos % (Auto) 1.1, Baso % (Auto) 0.2, Absolute Neuts (auto) 6.5, Absolute Lymphs (auto) 1.39, Nucleated RBC % 0 Rhythm Strip Rhythm Strip: Sinus Rhythm Rate: 75 Ectopy: None Imaging Radiology Impression Chest X-Ray 12/31/24 11:35 IMPRESSION: No acute cardiopulmonary process. Reading Location: [facility] Assessment & Plan Assessment/Plan (1) History of atrial fibrillation: (2) Chronic anticoagulation: (3) Acute anemia: (4) GIB (gastrointestinal bleeding): (5) Medication side effect: (6) Melena: (7) Exertional dyspnea: (8) Generalized weakness: PLAN: Plan Melena secondary to GI bleed due to Eliquis side effect - Patient on chronic Eliquis for atrial fibrillation with last dose being on a.m. of presentation - Hemoglobin in August was 13.5 and down to 6.2 on the day of admission - Transfused 2 units packed red blood cells with 2 on hold per ED - Cycle every 4 hours hemoglobin - Protonix bolus with drip - Hold Eliquis - Consult GI for endoscopy likely tomorrow - Will start clear liquid diet for now and n.p.o. after midnight Acute anemia - Secondary to the above - Baseline hemoglobin 13-15 - 6.2 on admission - Transfused 2 units packed red blood cells with 2 on hold - Cycle hemoglobin every 4 hours - Treatment as above Exertional dyspnea/generalized weakness - Suspect related to the above - Should improve after transfusion - Will have PT/OT evaluate the patient for discharge safety to home with advanced age Paroxysmal atrial fibrillation - Patient is chronically anticoagulated with Eliquis - Hold Eliquis for now given GI bleed - Currently in sinus rhythm - Continue home beta-baldev with hold parameters for systolic blood pressure and heart rate - [id number] score: 4 (age +2, gender, HTN) (4.8% stroke risk) Essential hypertension - Patient with some relative hypotension likely related to anemia - Will continue metoprolol with hold parameters - Hold losartan and triamterene/HCTZ for now--> reinitiate once blood pressure is trended and stabilized COPD - Continue home inhalers - No signs of acute exacerbation - Not oxygen dependent at baseline - As needed albuterol Hypothyroidism with history of thyroid cancer - status post thyroidectomy - Continue home levothyroxine Osteoarthritis - History of bilateral total knee arthroplasty - As needed Tylenol available Obesity - BMI is 33.5 - Complicates treatment, prognosis, outcomes DVT prophylaxis - Chemoprophylaxis contraindicated due to GI bleed at presentation - SCDs CODE STATUS - Full code as verified with patient at the time of admission Charges/Coding Visit Charges Inpatient E&M: 26997 Init Hosp L2 12/31/24 1532 <Electronically signed by Myranda Shirley DO> Cosigner Signature (if applicable): CC: Dr. Myranda Shirley DO; Dr. Marika Park MD~ Signed [facility] Work Phone: 1(201) 842-213306-02-2025 Evaluation note* Diagnosis Onset Date Resolution Status Admit Date Chronic anticoagulation acute J une 2024 2:34pm History of atrial fibrillation acute December 31, 2024 2:34pm Acute anemia resolved December 31 2:34pm Exertional dyspnea resolved December 312024 2:34pm Generalized weakness resolved December 31, 2024 2:34pm GIB (gastrointestinal bleeding) reso lved December 31, 2024 2:34pm Medication side effect resolved Ju ne 2024 2:34pm Melena resolved December 31, 2024 2:34pm COPD (chronic obstructive pulmonary disease) chronic March 18, 2025 11:48am [facility] [employer] Work Phone: [phone]) 952-264506-02-2025 Evaluation note* Diagnosis Onset Date Resolution Status Admit Date Chronic anticoagulation acute J une 2024 2:34pm History of atrial fibrillation acute December 31, 2024 2:34pm Acute anemia resolved December 31 2:34pm Exertional dyspnea resolved December 312024 2:34pm Generalized weakness resolved December 31, 2024 2:34pm GIB (gastrointestinal bleeding) resolved December 31, 2024 2 :34pm Medication side effect resolved Ju ne 2024 2:34pm Melena resolved December 31, 2024 2:34pm Hoarseness acute March 18 11:48am COPD (chronic obstructive pulmonary disease) chronic March 18, 2025 11:48am History of atrial fibrillation acute April 17, 2025 8:00am Essential hypertension chronic Se ptember 2024 8:00am [facility] Work Phone: [phone] 410-855006-02-2025 Discharge summary Author Trenton Lenz [facility] Note Date/Time December 31, 2024 2:27p m [facility] Medical Records Department [address] [place] [address] Emergency Department Summary 12/31/24 MR#: [id number] Acct: [id number] Name: MARIETTA TEMPLE Rep #:[id number] : 1945 79 From: Trenton Lenz MD PCP: Dr. Marika Park MD Status:RE G ER Location: ED HPI History of Present Illness Chief Complaint: Weakness Detail of Chief Complaint: Exertional dyspnea and fatigue. Informant: patient Onset/Context/Timing Onset: Days Context: Gradual Onset Timing: Intermittent Current Severity: Mild Maximum Severity: Mild Narrative Narrative: 79-year-old female history of atrial flutter on Eliquis and history of COPD. States since Tuesday she has had generalized weakness and fatigue. Exertional dyspnea at times some chest discomfort. Says she just does not have any energy. Denies any fever or chills. Denies any vomiting or diarrhea. Denies any dysuria. No abdominal pain. 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 Symptomatic menopausal or female climacteric states Vaginal enterocele, congenital or acquired Postmenopausal atrophic vaginitis Rectocele Plantar fasciitis Pain in joint, shoulder region Nontoxic multinodular goiter Indeterminate pulmonary nodules Hemorrhage of gastrointestinal tract, unspecified Cystocele, midline Benign neoplasm of colon Colon polyp Dyspnea on exertion Chest pain, unspecified Essential hypertension Ventricular ectopy Premature atrial contraction Paroxysmal atrial flutter Vision problems Thyroid cancer Skin cancer Osteoarthritis IBS (irritable bowel syndrome) Cancer Arthritis Ataxia Home Medications ?Medication ?Instructions ?Recorded ?Last Taken ?Type conjugated estrogens 0.625 mg/gram 1 dose vaginal .COM PLEX dryness 10/09/13 02/08/19 History vaginal cream magnesium oxide 200 mg PO DAILY 10/24/1909/25 History multivitamin 1 cap PO DAILY 10/24/1909/25 History triamterene 37.5 1 tab PO QODAY 07/16/2109/25 History mg-hydrochlorothiazide 25 mg tablet cholecalciferol (vitamin D3) 50 50 mcg PO DAILY 12/31/24 History mcg (2,000 unit) tablet coenzyme Q10 10 mg capsule 10 mg PO ONCE 01/07/2309/25 History levothyroxine 112 mcg tablet 112 mcg PO DAILY 01/07/23 12/30/24 History spacer #1 ea 02/22/23 Unknown Rx spacer #1 ea 03/21/23 Unknown Rx lactobacillus combination no.4 3 3,000 mmu cells PO DA ASHWIN supplement 08/15/24 History billion cell capsule (Probiotic) fluticasone propionate 230 2 inh inhalation BID #3 ea 09/18/24 12/31/24 Rx mcg-salmeterol 21 mcg/actuation HFA inhaler (Advair HFA) metoprolol succinate 50 mg 50 mg PO BID 90 days #180 t abs 09/28/24 12/31/24 Rx tablet,extended release 24 hr apixaban 5 mg tablet (Eliquis) 5 mg PO BID 12/31/24 History losartan 100 mg tablet 100 mg PO DAILY 12/31/2409/25 History triamterene 37.5 2 tab PO QODAY 12/31/2408/25 History mg-hydrochlorothiazide 25 mg tablet Allergy/AdvReac Type Severity Reaction Status Date / Time Sulfa (Sulfonamide Allergy Rash Verified 12/31/24 10:33 Antibiotics) codeine AdvReac Nausea Verified 12/31/24 10:33 Family History Father , 1977 Alcoholism Emphysema of lung Sister , 2016 ANGINA Cancer Diabetes CVA (cerebral vascular accident) Thyroid disorder Uterine cancer Brother Cancer Diabetes Mother Diabetes Myocardial infarction Heart disease 1964-59 YEARS Hypertension Surgical History History of cholecystectomy History of thyroidectomy Hx of breast reduction, elective History of bilateral knee replacement Social History Smoking Status: Former smoker how long ago did patient quit smokin alcohol intake: never substance use type: does not use caffeine: Yes Type: coffee Number of servings: 4 and tea ROS ROS ED ROS Narrative Exertional dyspnea. Fatigue. Occasional chest pressure. Constitutional Constitutional ED: Denies chills or fever(s) Eyes Eyes: Denies blurry vision ENT ENT ED: Denies ear pain Cardiovascular Cardiovascular: Reports chest pain Respiratory/Chest Respiratory/Chest: Reports dyspnea and dyspnea on exertion Gastrointestinal Gastrointestinal: Denies abdominal pain Genitourinary Genitourinary ED: Denies dysuria or hematuria Musculoskeletal Musculoskeletal: Denies arthralgias Integumentary Denies abscess Neurologic Neurologic: Denies headache(s) Psychiatric Psychiatric: Denies anxiety Endocrine Endocrinology: Denies cold intolerance Hematologic/Lymphatic Hematologic/Lymphatic: Reports none Allergic/Immunologic Allergic/Immunologic ED: Denies mouth swelling, tongue swelling or urticaria EXAM Physical Exam Narrative Exam Narrative: 79-year-old female sitting upright in bed. Vital signs are stable afebrile. Pulse ox is 97 to 99% on room air. She is in no distress. Currently no family with her. H EENT exam pupils round react light. Moist mucous membranes. No trauma. Neck nontender. Lungs clear to auscultation bilaterally. Heart regular rhythm rate about 75 no murmur. Chest wall and ribs nontender. Abdomensoft nontender. Back nontender. Moving all 4 extremities. Calves are nontender. There is no cords. She has normal allergy and immunology specialist strength. Normal dorsi plantarflexion. She does have bilateral very mild ankle edema. Neurologically she is awake and alert. Answering questions following commands.No focal motor deficits. Const Vital Signs: 12/31/24 10:33 12/31/24 11:33 12/31/24 12:00 Temperature 98 F Temperature Source Oral Pulse Rate 76 72 70 Respiratory Rate 16 16 16 Respiratory Pattern Blood Pressure 137/67 H 100/60 106/41 L Blood Pressure Mean 90 73 62 Pulse Ox 97 96 97 Oxygen Delivery Method Room Air Room Air 12/31/24 12:00 12/31/24 13:35 Temperature Temperature Source Pulse Rate 70 Respiratory Rate 10 L Respiratory Pattern Normal Blood Pressure 111/54 L Blood Pressure Mean 73 Pulse Ox 100 Oxygen Delivery Method Room Air Positive well nourished and well developed; Negative for cachectic, contracturesor unkempt General Appearance ED: well developed and NAD; Negative for unkempt, cachectic, contractures, cyanotic, diaphoretic or pallor Nutritional Appearance: Negative for cachectic HEENT Reports moist mucous membranes Negative for trauma or tenderness Eyes PERRL and EOMs intact bilaterally General Eye ED: Negative for pale conjunctiva Neck no lymphadenopathy, supple and no JVD General: Negative for tenderness Chest Wall inspection of chest normal and palpation of chest normal Resp normal respiratory effort and clear to auscultation bilaterally Auscultation: Negative for rales, rhonchi, wheezes or diminished lung sounds Cardio regular rate, regular rhythm, S1 normal heart sound, S2 normal heart sound and no murmurs GI normal to inspection, nondistended, normoactive bowel sounds, non-tender, non-distended and no masses Auscultation: normoactive bowel sounds Palpation: soft; Negative for tender, guarding or rebound tenderness present Back/Spine no CVA tenderness General Back: Negative for CVA tenderness Cervical Spine: Negative for cervical spine tenderness Thoracic Spine / Upper Back: Negative for thoracic spinal tenderness Lumbar Spine / Lower Back: Negative for lumbar spinal tenderness Extremity normal to inspection Extremity Narrative: Except for trace bilateral ankle edema. Nontender. General Extremety ED: Yes edema General Extremity: edema Neuro oriented x3 and CN's II-XII intact bilaterally Sensorium / Orientation: alert Motor Exam: strength 5/5 throughout Psych mental status grossly normal Appearance: Negative for unkempt Mood & Affect: Negative for depressed, anxious or tearful Skin no rashes or lesions noted, no wounds and skin turgor normal General Skin Exam: Negative for jaundice or pallor Lesions: No lesion noted Rashes: No rashes noted Trauma: Negative for abrasion Wounds: Negative for wounds noted MDM MDM MDM Narrative Medical decision making narrative: 79-year-old female on Eliquis due to atrial flutter with a history of COPD complaining of the at times generalized weakness and fatigue. Chest pressure. Differential would include cardiac disease, COPD, anemia excetra. She undergo cardiac workup. Exam is benign. Patient brought in a stool sample with her. It is very dark looks black looks like it could be from an upper GI bleed. Repeat exam patient is doing well at 2:20 PM. I explained to her she is anemic I suspect is from an upper GI bleed. She has been typed and crossed she will betransfused 2 units of blood. Have already spoken to the hospitalist to admit the patient. I have GI on page. History & Record Review Discussion w/independent historian: Patient Additional record(s) reviewed:: Prior inpatient record, Prior outpatient record,Prior ED visit and Prior labs Lab Data Attestation: I reviewed the patient's lab results. Lab results narrative: CBC shows a white count of 9. H&H of 6.2 and 20. Platelets of 330. Initial troponin 10. BMP shows a sodium 137. Gap 14. BUN 20 creatinine 0.8. Glucose 113. Labs are consistent with acute anemia secondary to a GI bleed which I suspect isupper Labs: Laboratory Results - last 24 hr 12/31/24 12/31/24 12/31/24 11:55 11:55 12:30 WBC Cancelled 9.0 Corrected WBC Cancelled RBC Cancelled 2.48 L Hgb Cancelled 6.2 L Hct Cancelled 20.1 L MCV Cancelled 81.0 MCH Cancelled 25.0 L MCHC Cancelled 30.8 L RDW Std Deviation Cancelled 44.1 H RDW Coeff of Carmine Cancelled 15.0 H Plt Count Cancelled 330 MPV Cancelled 10.6 Immature Gran % (Auto) Cancelled 0.600 Neut % (Auto) Cancelled 72.2 H Lymph % (Auto) Cancelled 15.4 L Nobles % (Auto) Cancelled 10.5 H Eos % (Auto) Cancelled 1.1 Baso % (Auto) Cancelled 0.2 Absolute Neuts (auto) Cancelled 6.5 Absolute Lymphs (auto) Cancelled 1.39 Total Counted Cancelled Neutrophils % (Manual) Cancelled Band Neutrophils % Cancelled Lymphocytes % (Manual) Cancelled Monocytes % (Manual) Cancelled Eosinophils % (Manual) Cancelled Basophils % (Manual) Cancelled Metamyelocytes % Cancelled Myelocytes % Cancelled Promyelocytes % Cancelled Blast Cells % Cancelled Plasma Cell % (Manual) Cancelled Other Cells % Cancelled Nucleated RBC % Cancelled 0 Nucleated RBCs/100 WBC Cancelled Differential Comment Cancelled Diff Path Review Cancelled Hypersegmented Neuts Cancelled Atypical Lymphocytes Cancelled Reactive Lymphocytes Cancelled Smudge Cells Cancelled Toxic Granulation Cancelled Toxic Vacuolation Cancelled Dohle Bodies Cancelled Naz Rods Cancelled Platelet Estimate Cancelled Plt Morphology Comment Cancelled RBC Morphology Cancelled Cancelled Polychromasia Cancelled Hypochromasia Cancelled Basophilic Stippling Cancelled Anisocytosis Cancelled Microcytosis Cancelled Macrocytosis Cancelled Spherocytes Cancelled Sickle Cells Cancelled Target Cells Cancelled Tear Drop Cells Cancelled Ovalocytes Cancelled Stomatocytes Cancelled [place] Bodies Cancelled [place] Cells Cancelled Bite Cells Cancelled Crenated Cell Cancelled Acanthocytes (Spur) Cancelled Rouleaux Cancelled Schistocytes Cancelled Sodium 137 Potassium 3.4 Chloride 101 Carbon Dioxide 22.3 Anion Gap 14 BUN 20 H Creatinine 0.88 Est GFR (MDRD) Non-Af 66 BUN/Creatinine Ratio 23.2 H Glucose 113 H Calcium 9.4 Troponin T High Sens 10 Radiography Chest X-Ray - ED: 2 View, Read by ED Physician, Read by Radiologist, Normal, Lungs, Mediastinum, Bony Structures, No Acute Disease and Chronic Changes Diagnostic Testing: Clinical Impression(s) from Imaging Studies Chest X-Ray 12/31/24 11:35 IMPRESSION: No acute cardiopulmonary process. Reading Location: [facility] Chest x-ray, 2 views, AP and lateral, interpreted both by myself and radiologistshows no acute process. Normal cardiac silhouette. No edema. No effusions. No infiltrate. Chronic changes. Rhythm Strip Rhythm Strip: Sinus Rhythm Rate: 75 Ectopy: None EKG Initial EKG: Attestation: I personally reviewed and interpreted this EKG as follows: Interpretation: Sinus Rhythm and No Acute Injury Pattern Comments: Normal sinus rhythm rate of 75 no acute signs of MA nor ischemia. Discharge Plan Triage Chief Complaint: Weakness ED Provider: Trenton Lenz Dx/Rx/DC Orders Clinical Impression: Acute upper gastrointestinal bleeding, Acute anemia, Chronic anticoagulation, History of atrial fibrillation, Transfusion of blood during current hospitalisation Prescriptions: No Action magnesium oxide 200 mg magnesium tablet 200 mg PO DAILY multivitamin Capsule 1 cap PO DAILY triamterene-hydrochlorothiazid 37.5-25 mg tablet 1 tab PO QODAY coenzyme Q10 10 mg capsule 10 mg PO ONCE levothyroxine 112 mcg tablet 112 mcg PO DAILY cholecalciferol (vitamin D3) 50 mcg (2,000 unit) tablet 50 mcg PO DAILY (DME) spacer See Rx Instructions .ROUTE .MEDSUPPLY Qty: 1 0RF Rx Instructions: As directed fluticasone propion-salmeterol [Advair HFA] 230-21 mcg/actuation HFA aerosol inhaler 2 inh inhalation BID Qty: 3 3RF conjugated estrogens 1 DOSE cream 1 dose vaginal .COMPLEX Patient Comments: ONLY USES WHEN DRYNESS OCCURS Rx Instructions: 1 dose vaginally BI-WEEKLY; losartan 100 mg tablet 100 mg PO DAILY triamterene-hydrochlorothiazid 37.5-25 mg tablet 2 tab PO QODAY Eliquis 5 MG tablet 5 mg PO BID Probiotic 3 billion cell capsule 3,000 mmu cells PO DAILY Patient Comments: pt unsure of dosage Rx Instructions: administer with a meal (DME) spacer See Rx Instructions .ROUTE .MEDSUPPLY Qty: 1 0RF Rx Instructions: As directed metoprolol succinate 50 mg tablet extended release 24 hr 50 mg PO BID 90 Days Qty: 180 3RF Rx Instructions: This is a dose increase Primary Care Provider: Marika Park Referrals: Marika Park MD [Primary Care Provider] - Print Language: Gabonese Disposition Disposition: Acute Care [facility] What to do if you have Problems For any increased pain, shortness of breath, bleeding, nausea or vomiting, chestpain, or any unexpected problems, contact your Primary Care Provider. Call [facility] ([phone]) or report to the closest Emergency Room. Call 911 if necessary. 12/31/24 1427 <Electronically signed by Trenton Lenz MD> Cosigner Signature (if applicable): CC: Dr. Marika Park MD ~ Signed [facility] Work Phone: 1(827) 884-179206-02-2025 History and physical note [facility] Medical Records Department [address] [place] [address] H&P Exam - Hospitalist 12/31/24 1433 MR#: [id number] Acct: [id number] Name: MARIETTA TEMPLE Rep #:[id number] : 1945 79 From: Myranda Shirley DO PCP: Dr. Marika Park MD Status:AD M IN Location: [facility] [id number] HPI - General General Date of Admission: 12/31/24 Date of Service: 12/31/24 Chief Complaint: Fatigue/Exertional Dyspnea HPI Katiana TEMPLE, is a 79 F who presented to the emergency department at [facility] on 12/31/2024 with a chief complaint of shortness of breath with exertion and fatigue. Patient reported thatsince Tuesday she has been experiencing generalized weakness and fatigue. At times she was having chest discomfort however she is not currently having any. She indicated she just doesnot seem to have any energy. She denied any fever or chills. She has had no vomiting or diarrhea. She has had no constipation. She does indicate that her stool has been darker than usual and she is on Eliquis for history of atrial fibrillation/flutter. Patient indicated that her stool has been darker than typical for several months now. She was unable to give me an exact timeframe. She stated she had 2 very dark bowel movements that were blowouts over the weekend. 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 She states her s tools are never hard and always soft. Her last dose of Eliquis was on the morning of presentation. She has never had this issue before. Her last colonoscopy was outpatient at [facility] in 2022. She has never had an EGD. Vital signs on presentation showed temperature of 98, heart rate 76, respiratoryrate 16, blood pressure is 137/67, pulse ox was 97% on room air. CBC showed a marked anemia with a hemoglobin of 6.2. This was normocytic. Her most recent CBC we have on record is from August 2024 at which time she was13.5. Chemistry panel was unremarkable. BUN/creatinine ratio was not all that significant. With a BUN of 20 and a serum creatinine of 0.88. Initial troponinwas 10 with a delta pending. Chest x-ray was unremarkable for acute findings. EKG showed no evidence of acute ischemia. She is currently normalsinus rhythm. In the emergency department she was given acetaminophen 1 g x 1 dose and ordered4 units of blood with 2 to be on hold and to to be given. Per discussion with ER physician Dr. Jaimes was consulted by the emergency department and will evaluate the patient on the medical floor. 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 Symptomatic menopausal or female climacteric states Vaginal enterocele, congenital or acquired Postmenopausal atrophic vaginitis Rectocele Plantar fasciitis Pain in joint, shoulder region Nontoxic multinodular goiter Indeterminate pulmonary nodules Hemorrhage of gastrointestinal tract, unspecified Cystocele, midline Benign neoplasm of colon Colon polyp Dyspnea on exertion Chest pain, unspecified Essential hypertension Ventricular ectopy Premature atrial contraction Paroxysmal atrial flutter Vision problems Thyroid cancer Skin cancer Osteoarthritis IBS (irritable bowel syndrome) Cancer Arthritis Ataxia Home Medications ?Medication ?Instructions ?Recorded ?Last Taken ?Type conjugated estrogens 0.625 mg/gram 1 dose vaginal .COM PLEX dryness 10/09/13 02/08/19 History vaginal cream magnesium oxide 200 mg PO DAILY 10/24/1909/25 History multivitamin 1 cap PO DAILY 10/24/1909/25 History triamterene 37.5 1 tab PO QODAY 07/16/2109/25 History mg-hydrochlorothiazide 25 mg tablet cholecalciferol (vitamin D3) 50 50 mcg PO DAILY 12/31/24 History mcg (2,000 unit) tablet coenzyme Q10 10 mg capsule 10 mg PO ONCE 01/07/2309/25 History levothyroxine 112 mcg tablet 112 mcg PO DAILY 01/07/23 12/30/24 History spacer #1 ea 02/22/23 Unknown Rx spacer #1 ea 03/21/23 Unknown Rx lactobacillus combination no.4 3 3,000 mmu cells PO DA ASHWIN supplement 08/15/24 12/31/24 History billion cell capsule (Probiotic) fluticasone propionate 230 2 inh inhalation BID #3 ea 09/18/24 12/31/24 Rx mcg-salmeterol 21 mcg/actuation HFA inhaler (Advair HFA) metoprolol succinate 50 mg 50 mg PO BID 90 days #180 t abs 09/28/24 12/31/24 Rx tablet,extended release 24 hr apixaban 5 mg tablet (Eliquis) 5 mg PO BID 12/31/24 History losartan 100 mg tablet 100 mg PO DAILY 12/31/2409/25 History triamterene 37.5 2 tab PO QODAY 12/31/2408/25 History mg-hydrochlorothiazide 25 mg tablet Allergy/AdvReac Type Severity Reaction Status Date / Time Sulfa (Sulfonamide Allergy Rash Verified 12/31/24 10:33 Antibiotics) codeine AdvReac Nausea Verified 12/31/24 10:33 Family History Father , 1977 Alcoholism Emphysema of lung Sister , 2016 ANGINA Cancer Diabetes CVA (cerebral vascular accident) Thyroid disorder Uterine cancer Brother Cancer Diabetes Mother Diabetes Myocardial infarction Heart disease 1964-59 YEARS Hypertension Surgical History History of cholecystectomy History of thyroidectomy Hx of breast reduction, elective History of bilateral knee replacement Social History Smoking Status: Former smoker how long ago did patient quit smokin alcohol intake: never substance use type: does not use caffeine: Yes Type: coffee Number of servings: 4 and tea ROS Constitutional Constitutional: Reports fatigue and weakness; Denies anorexia, change in weight,chills, fever(s), malaise, night sweats or other Eyes Eyes: Denies blurry vision, change in eye color, change in vision, discharge from eye(s), double vision, erythema, eye pain, loss of vision or other ENT HEENT: Denies abnormal hearing, dysphagia, ear pain, epistaxis, headache(s), hearing loss, nasal congestion, nasal discharge, post nasal drip, sinus pressure, sore throat or other Cardiovascular Cardiovascular: Reports dyspnea on exertion, edema and other Details: Intermittent chest discomfort; Denies chest pain, claudication, lightheadedness, orthopnea, palpitations, paroxysmal nocturnal dyspnea, rapid heart rate or syncope Respiratory/Chest Respiratory/Chest: Reports shortness of breath with exertion; Denies cough, dyspnea, excessive phlegm production, hemoptysis, productive cough, shortness ofbreath at rest, wheezing or other Gastrointestinal Gastrointestinal: Reports melena; Denies abdominal pain, coffee ground emesis, constipation, diarrhea, dyspepsia, hematemesis, hematochezia, loose stools, nausea, vomiting or other Genitourinary Genitourinary: Denies burning urination, difficulty urinating, dysuria, hematuria, nocturia, urinary frequency, urinary hesitancy, urinary incontinence,urinary urgency or other Musculoskeletal Musculoskeletal: Denies arthralgias, back pain, joint pain, joint stiffness, joint swelling, myalgias, neck pain or other Neurologic Neurologic: Denies abnormal gait, abnormal speech, confusion, disequilibrium, dizziness, focal weakness, headache(s), numbness, paresthesias, seizure-like activity, seizures, syncope, tingling, tremor(s) or other Psychiatric Psychiatric: Denies anxiety, depression, homicidal ideation, suicidal ideation or other Endocrine Endocrinology: Denies change in body appearance, cold intolerance, excessive sweating, heat intolerance, polydipsia, polyuria or other Hematologic/Lymphatic Hematologic/Lymphatic: Reports easy bleeding and easy bruising; Denies anemia, lymphadenopathy or other Allergic/Immunologic Allergic/Immunologic: Denies rhinitis, hives, eczemia, asthma or other Vital Signs Vital Signs Vital Signs: 12/31/24 10:33 12/31/24 11:33 12/31/24 12:00 Temperature 98 F Temperature Source Oral Pulse Rate 76 72 70 Respiratory Rate 16 16 16 Respiratory Pattern Blood Pressure 137/67 H 100/60 106/41 L Blood Pressure Mean 90 73 62 Pulse Ox 97 96 97 Oxygen Delivery Method Room Air Room Air 12/31/24 12:00 12/31/24 13:35 Temperature Temperature Source Pulse Rate 70 Respiratory Rate 10 L Respiratory Pattern Normal Blood Pressure 111/54 L Blood Pressure Mean 73 Pulse Ox 100 Oxygen Delivery Method Room Air Weight Weight: 88.496 kg Body Mass Index (BMI) 33.5 Physical Exam Const alert, oriented x3, no apparent distress and well nourished; Negative for average body habitus Constitutional Narrative: elderly, obese, white female, sitting up in bed, appears comfortable, nontoxic, very pleasant General Appearance: cooperative HEENT normocephalic, head/scalp atraumatic and moist oral mucous membranes; Negative for hearing grossly normal bilaterally HEENT Narrative: Mild hearing loss, dentures in place, Mallampati 3, no thrush Eyes Eyes Narrative: Conjunctiva are considerably pale upon laterally, no scleral icterus Neck no lymphadenopathy and supple Neck Narrative: Trachea midline Resp normal respiratory effort, no retractions, no use of accessory muscles and clearto auscultation bilaterally Auscultation: Negative for rales, rhonchi or wheezes Cardio regular rate, regular rhythm, S1 normal heart sound, S2 normal heart sound, no rub, no gallops and no clicks; Negative for no murmurs Cardio Narrative: 2 out of 6 systolic murmur loudest at the right upper sternal border GI normal to inspection, nondistended, normoactive bowel sounds, soft to palpation and non-tender Extremity Extremity Narrative: Trace bilateral lower extremity pitting edema that is chronic, no cyanosis or clubbing Skin Skin Narrative: Skin is pale, skin changes consistent with previous sun exposure Neuro oriented x3, CN's II-XII intact bilaterally, moves all extremities and no focal motor deficits Speech: speech normal Psych affect normal Psych Narrative: Extremely pleasant, interacts appropriately, eye contact is good Results Lab / Micro Data 12/31/24 12:30 12/31/24 11:55 Labs: Laboratory Results - last 24 hr 12/31/24 11:55: WBC Cancelled, Corrected WBC Cancelled, RBC Cancelled, Hgb Cancelled, Hct Cancelled, MCV Cancelled, MCH Cancelled, MCHC Cancelled, RDW Std Deviation Cancelled, RDW Coeff of Carmine Cancelled, Plt Count Cancelled, MPV Cancelled, Immature Gran % (Auto) Cancelled, Neut % (Auto) Cancelled, Lymph % (Auto) Cancelled, Nobles % (Auto) Cancelled, Eos % (Auto) Cancelled, Baso % (Auto)Cancelled, Absolute Neuts (auto) Cancelled, Absolute Lymphs (auto) Cancelled, Total Counted Cancelled, Neutrophils % (Manual) Cancelled, Band Neutrophils % Cancelled, Lymphocytes % (Manual) Cancelled, Monocytes %(Manual) Cancelled, Eosinophils % (Manual) Cancelled, Basophils % (Manual) Cancelled, Metamyelocytes% Cancelled, Myelocytes % Cancelled, Promyelocytes % Cancelled, Blast Cells % Cancelled, Plasma Cell % (Manual) Cancelled, Other Cells % Cancelled, Nucleated RBC % Cancelled, Nucleated RBCs/100 WBC Cancelled, Differential Comment Cancelled, Diff Path Review Cancelled, Hypersegmented Neuts Cancelled, Atypical Lymphocytes Cancelled, Reactive Lymphocytes Cancelled, Smudge Cells Cancelled, Toxic Granulation Cancelled, Toxic Vacuolation Cancelled, Dohle Bodies Cancelled, Naz Rods Cancelled, Platelet Estimate Cancelled, Plt Morphology Comment Cancelled, RBC Morphology Cancelled 12/31/24 11:55: RBC Morphology Cancelled, Polychromasia Cancelled, HypochromasiaCancelled, Basophilic Stippling Cancelled, Anisocytosis Cancelled, Microcytosis Cancelled, Macrocytosis Cancelled, Spherocytes Cancelled, Sickle Cells Cancelled, Target Cells Cancelled, Tear Drop Cells Cancelled, Ovalocytes Cancelled, Stomatocytes Cancelled, [place] Bodies Cancelled, [place] Cells Cancelled, Bite Cells Cancelled, Crenated Cell Cancelled, Acanthocytes (Spur) Cancelled, Rouleaux Cancelled, Schistocytes Cancelled, Sodium 137, Potassium 3.4, Chloride 101, Carbon Dioxide 22.3, Anion Gap 14, BUN 20 H,Creatinine 0.88,Est GFR (MDRD) Non-Af 66, BUN/Creatinine Ratio 23.2 H, Glucose 113 H, Calcium 9.4, Troponin T High Sens 10 12/31/24 12:30: WBC 9.0, RBC 2.48 L, Hgb 6.2 L, Hct 20.1 L, MCV 81.0, MCH 25.0 L, MCHC 30.8 L, RDW Std Deviation 44.1 H, RDW Coeff of Carmine 15.0 H, Plt Count 330,MPV 10.6, Immature Gran % (Auto) 0.600,Neut % (Auto) 72.2 H, Lymph % (Auto) 15.4 L, Nobles % (Auto) 10.5 H, Eos % (Auto) 1.1, Baso % (Auto) 0.2, Absolute Neuts (auto) 6.5, Absolute Lymphs (auto) 1.39, Nucleated RBC % 0 Rhythm Strip Rhythm Strip: Sinus Rhythm Rate: 75 Ectopy: None Imaging Radiology Impression Chest X-Ray 12/31/24 11:35 IMPRESSION: No acute cardiopulmonary process. Reading Location: [facility] Assessment & Plan Assessment/Plan (1) History of atrial fibrillation: (2) Chronic anticoagulation: (3) Acute anemia: (4) GIB (gastrointestinal bleeding): (5) Medication side effect: (6) Melena: (7) Exertional dyspnea: (8) Generalized weakness: PLAN: Plan Melena secondary to GI bleed due to Eliquis side effect - Patient on chronic Eliquis for atrial fibrillation with last dose being on a.m. of presentation - Hemoglobin in August was 13.5 and down to 6.2 on the day of admission - Transfused 2 units packed red blood cells with 2 on hold per ED - Cycle every 4 hours hemoglobin - Protonix bolus with drip - Hold Eliquis - Consult GI for endoscopy likely tomorrow - Will start clear liquid diet for now and n.p.o. after midnight Acute anemia - Secondary to the above - Baseline hemoglobin 13-15 - 6.2 on admission - Transfused 2 units packed red blood cells with 2 on hold - Cycle hemoglobin every 4 hours - Treatment as above Exertional dyspnea/generalized weakness - Suspect related to the above - Should improve after transfusion - Will have PT/OT evaluate the patient for discharge safety to home with advanced age Paroxysmal atrial fibrillation - Patient is chronically anticoagulated with Eliquis - Hold Eliquis for now given GI bleed - Currently in sinus rhythm - Continue home beta-baldev with hold parameters for systolic blood pressure and heart rate - [id number] score: 4 (age +2, gender, HTN) (4.8% stroke risk) Essential hypertension - Patient with some relative hypotension likely related to anemia - Will continue metoprolol with hold parameters - Hold losartan and triamterene/HCTZ for now--> reinitiate once blood pressure is trended and stabilized COPD - Continue home inhalers - No signs of acute exacerbation - Not oxygen dependent at baseline - As needed albuterol Hypothyroidism with history of thyroid cancer - status post thyroidectomy - Continue home levothyroxine Osteoarthritis - History of bilateral total knee arthroplasty - As needed Tylenol available Obesity - BMI is 33.5 - Complicates treatment, prognosis, outcomes DVT prophylaxis - Chemoprophylaxis contraindicated due to GI bleed at presentation - SCDs CODE STATUS - Full code as verified with patient at the time of admission Charges/Coding Visit Charges Inpatient E&M: 92393 Init Hosp L2 12/31/24 1532 Cosigner Signature (if applicable): CC: Dr. Myranda Shirley DO; Dr. Marika Park MD~ Signed [facility]06-02-2025 Discharge summary [facility] Medical Records Department [address] [place] [address] Emergency Department Summary 12/31/24 MR#: [id number] Acct: [id number] Name: MARIETTA TEMPLE Rep #:[id number] : 1945 79 From: Trenton Lenz MD PCP: Dr. Marika Park MD Status:RE G ER Location: ED HPI History of Present Illness Chief Complaint: Weakness Detail of Chief Complaint: Exertional dyspnea and fatigue. Informant: patient Onset/Context/Timing Onset: Days Context: Gradual Onset Timing: Intermittent Current Severity: Mild Maximum Severity: Mild Narrative Narrative: 79-year-old female history of atrial flutter on Eliquis and history of COPD. States since Tuesday she has had generalized weakness and fatigue. Exertional dyspnea at times some chest discomfort. Says she just does not have any energy. Denies any fever or chills. Denies any vomiting or diarrhea. Denies any dysuria. No abdominal pain. 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 Symptomatic menopausal or female climacteric states Vaginal enterocele, congenital or acquired Postmenopausal atrophic vaginitis Rectocele Plantar fasciitis Pain in joint, shoulder region Nontoxic multinodular goiter Indeterminate pulmonary nodules Hemorrhage of gastrointestinal tract, unspecified Cystocele, midline Benign neoplasm of colon Colon polyp Dyspnea on exertion Chest pain, unspecified Essential hypertension Ventricular ectopy Premature atrial contraction Paroxysmal atrial flutter Vision problems Thyroid cancer Skin cancer Osteoarthritis IBS (irritable bowel syndrome) Cancer Arthritis Ataxia Home Medications ?Medication ?Instructions ?Recorded ?Last Taken ?Type conjugated estrogens 0.625 mg/gram 1 dose vaginal .COM PLEX dryness 10/09/13 02/08/19 History vaginal cream magnesium oxide 200 mg PO DAILY 10/24/1909/25 History multivitamin 1 cap PO DAILY 10/24/1909/25 History triamterene 37.5 1 tab PO QODAY 07/16/2109/25 History mg-hydrochlorothiazide 25 mg tablet cholecalciferol (vitamin D3) 50 50 mcg PO DAILY 12/31/24 History mcg (2,000 unit) tablet coenzyme Q10 10 mg capsule 10 mg PO ONCE 01/07/2309/25 History levothyroxine 112 mcg tablet 112 mcg PO DAILY 01/07/23 12/30/24 History spacer #1 ea 02/22/23 Unknown Rx spacer #1 ea 03/21/23 Unknown Rx lactobacillus combination no.4 3 3,000 mmu cells PO DA ASHWIN supplement 08/15/24 History billion cell capsule (Probiotic) fluticasone propionate 230 2 inh inhalation BID #3 ea 09/18/24 12/31/24 Rx mcg-salmeterol 21 mcg/actuation HFA inhaler (Advair HFA) metoprolol succinate 50 mg 50 mg PO BID 90 days #180 t abs 09/28/24 12/31/24 Rx tablet,extended release 24 hr apixaban 5 mg tablet (Eliquis) 5 mg PO BID 12/31/24 History losartan 100 mg tablet 100 mg PO DAILY 12/31/2409/25 History triamterene 37.5 2 tab PO QODAY 12/31/2408/25 History mg-hydrochlorothiazide 25 mg tablet Allergy/AdvReac Type Severity Reaction Status Date / Time Sulfa (Sulfonamide Allergy Rash Verified 12/31/24 10:33 Antibiotics) codeine AdvReac Nausea Verified 12/31/24 10:33 Family History Father , 1977 Alcoholism Emphysema of lung Sister , 2016 ANGINA Cancer Diabetes CVA (cerebral vascular accident) Thyroid disorder Uterine cancer Brother Cancer Diabetes Mother Diabetes Myocardial infarction Heart disease 1964-59 YEARS Hypertension Surgical History History of cholecystectomy History of thyroidectomy Hx of breast reduction, elective History of bilateral knee replacement Social History Smoking Status: Former smoker how long ago did patient quit smokin alcohol intake: never substance use type: does not use caffeine: Yes Type: coffee Number of servings: 4 and tea ROS ROS ED ROS Narrative Exertional dyspnea. Fatigue. Occasional chest pressure. Constitutional Constitutional ED: Denies chills or fever(s) Eyes Eyes: Denies blurry vision ENT ENT ED: Denies ear pain Cardiovascular Cardiovascular: Reports chest pain Respiratory/Chest Respiratory/Chest: Reports dyspnea and dyspnea on exertion Gastrointestinal Gastrointestinal: Denies abdominal pain Genitourinary Genitourinary ED: Denies dysuria or hematuria Musculoskeletal Musculoskeletal: Denies arthralgias Integumentary Denies abscess Neurologic Neurologic: Denies headache(s) Psychiatric Psychiatric: Denies anxiety Endocrine Endocrinology: Denies cold intolerance Hematologic/Lymphatic Hematologic/Lymphatic: Reports none Allergic/Immunologic Allergic/Immunologic ED: Denies mouth swelling, tongue swelling or urticaria EXAM Physical Exam Narrative Exam Narrative: 79-year-old female sitting upright in bed. Vital signs are stable afebrile. Pulse ox is 97 to 99% on room air. She is in no distress. Currently no family with her. H EENT exam pupils round react light. Moist mucous membranes. No trauma. Neck nontender. Lungs clear to auscultation bilaterally. Heartregular rhythm rate about 75 no murmur. Chest wall and ribs nontender. Abdomensoft nontender. Back nontender. Moving all 4 extremities. Calves are nontender. There is no cords. She has normal allergy and immunology specialist strength. Normal dorsi plantarflexion. She does have bilateral very mild ankle edema. Neurologically she is awake and alert. Answering questions following commands.No focal motor deficits. Const Vital Signs: 12/31/24 10:33 12/31/24 11:33 12/31/24 12:00 Temperature 98 F Temperature Source Oral Pulse Rate 76 72 70 Respiratory Rate 16 16 16 Respiratory Pattern Blood Pressure 137/67 H 100/60 106/41 L Blood Pressure Mean 90 73 62 Pulse Ox 97 96 97 Oxygen Delivery Method Room Air Room Air 12/31/24 12:00 12/31/24 13:35 Temperature Temperature Source Pulse Rate 70 Respiratory Rate 10 L Respiratory Pattern Normal Blood Pressure 111/54 L Blood Pressure Mean 73 Pulse Ox 100 Oxygen Delivery Method Room Air Positive well nourished and well developed; Negative for cachectic, contracturesor unkempt General Appearance ED: well developed and NAD; Negative for unkempt, cachectic, contractures, cyanotic, diaphoretic or pallor Nutritional Appearance: Negative for cachectic HEENT Reports moist mucous membranes Negative for trauma or tenderness Eyes PERRL and EOMs intact bilaterally General Eye ED: Negative for pale conjunctiva Neck no lymphadenopathy, supple and no JVD General: Negative for tenderness Chest Wall inspection of chest normal and palpation of chest normal Resp normal respiratory effort and clear to auscultation bilaterally Auscultation: Negative for rales, rhonchi, wheezes or diminished lung sounds Cardio regular rate, regular rhythm, S1 normal heart sound, S2 normal heart sound and no murmurs GI normal to inspection, nondistended, normoactive bowel sounds, non-tender, non- distended and no masses Auscultation: normoactive bowel sounds Palpation: soft; Negative for tender, guarding or rebound tenderness present Back/Spine no CVA tenderness General Back: Negative for CVA tenderness Cervical Spine: Negative for cervical spine tenderness Thoracic Spine / Upper Back: Negative for thoracic spinal tenderness Lumbar Spine / Lower Back: Negative for lumbar spinal tenderness Extremity normal to inspection Extremity Narrative: Except for trace bilateral ankle edema. Nontender. General Extremety ED: Yes edema General Extremity: edema Neuro oriented x3 and CN's II-XII intact bilaterally Sensorium / Orientation: alert Motor Exam: strength 5/5 throughout Psych mental status grossly normal Appearance: Negative for unkempt Mood & Affect: Negative for depressed, anxious or tearful Skin no rashes or lesions noted, no wounds and skin turgor normal General Skin Exam: Negative for jaundice or pallor Lesions: No lesion noted Rashes: No rashes noted Trauma: Negative for abrasion Wounds: Negative for wounds noted MDM MDM MDM Narrative Medical decision making narrative: 79-year-old female on Eliquis due to atrial flutter with a history of COPD complaining of the at times generalized weakness and fatigue. Chest pressure. Differential would include cardiac disease, COPD, anemia excetra. She undergo cardiac workup. Exam is benign. Patient brought in a stool sample with her. It is very dark looks black looks like it could be froman upper GI bleed. Repeat exam patient is doing well at 2:20 PM. I explained to her she is anemic I suspect is from anupper GI bleed. She has been typed and crossed she will betransfused 2 units of blood. Have alreadyspoken to the hospitalist to admit the patient. I have GI on page. History & Record Review Discussion w/independent historian: Patient Additional record(s) reviewed:: Prior inpatient record, Prior outpatient record,Prior ED visit and Prior labs Lab Data Attestation: I reviewed the patient's lab results. Lab results narrative: CBC shows a white count of 9. H&H of 6.2 and 20. Platelets of 330. Initial troponin 10. BMP shows a sodium 137. Gap 14. BUN 20 creatinine 0.8. Glucose 113. Labs are consistent with acute anemia secondary to a GI bleed which I suspect isupper Labs: Laboratory Results - last 24 hr 12/31/24 12/31/24 12/31/24 11:55 11:55 12:30 WBC Cancelled 9.0 Corrected WBC Cancelled RBC Cancelled 2.48 L Hgb Cancelled 6.2 L Hct Cancelled 20.1 L MCV Cancelled 81.0 MCH Cancelled 25.0 L MCHC Cancelled 30.8 L RDW Std Deviation Cancelled 44.1 H RDW Coeff of Carmine Cancelled 15.0 H Plt Count Cancelled 330 MPV Cancelled 10.6 Immature Gran % (Auto) Cancelled 0.600 Neut % (Auto) Cancelled 72.2 H Lymph % (Auto) Cancelled 15.4 L Nobles % (Auto) Cancelled 10.5 H Eos % (Auto) Cancelled 1.1 Baso % (Auto) Cancelled 0.2 Absolute Neuts (auto) Cancelled 6.5 Absolute Lymphs (auto) Cancelled 1.39 Total Counted Cancelled Neutrophils % (Manual) Cancelled Band Neutrophils % Cancelled Lymphocytes % (Manual) Cancelled Monocytes % (Manual) Cancelled Eosinophils % (Manual) Cancelled Basophils % (Manual) Cancelled Metamyelocytes % Cancelled Myelocytes % Cancelled Promyelocytes % Cancelled Blast Cells % Cancelled Plasma Cell % (Manual) Cancelled Other Cells % Cancelled Nucleated RBC % Cancelled 0 Nucleated RBCs/100 WBC Cancelled Differential Comment Cancelled Diff Path Review Cancelled Hypersegmented Neuts Cancelled Atypical Lymphocytes Cancelled Reactive Lymphocytes Cancelled Smudge Cells Cancelled Toxic Granulation Cancelled Toxic Vacuolation Cancelled Dohle Bodies Cancelled Naz Rods Cancelled Platelet Estimate Cancelled Plt Morphology Comment Cancelled RBC Morphology Cancelled Cancelled Polychromasia Cancelled Hypochromasia Cancelled Basophilic Stippling Cancelled Anisocytosis Cancelled Microcytosis Cancelled Macrocytosis Cancelled Spherocytes Cancelled Sickle Cells Cancelled Target Cells Cancelled Tear Drop Cells Cancelled Ovalocytes Cancelled Stomatocytes Cancelled [place] Bodies Cancelled [place] Cells Cancelled Bite Cells Cancelled Crenated Cell Cancelled Acanthocytes (Spur) Cancelled Rouleaux Cancelled Schistocytes Cancelled Sodium 137 Potassium 3.4 Chloride 101 Carbon Dioxide 22.3 Anion Gap 14 BUN 20 H Creatinine 0.88 Est GFR (MDRD) Non-Af 66 BUN/Creatinine Ratio 23.2 H Glucose 113 H Calcium 9.4 Troponin T High Sens 10 Radiography Chest X-Ray - ED: 2 View, Read by ED Physician, Read by Radiologist, Normal, Lungs, Mediastinum, Bony Structures, No Acute Disease and Chronic Changes Diagnostic Testing: Clinical Impression(s) from Imaging Studies Chest X-Ray 12/31/24 11:35 IMPRESSION: No acute cardiopulmonary process. Reading Location: [facility] Chest x-ray, 2 views, AP and lateral, interpreted both by myself and radiologistshows no acute process. Normal cardiac silhouette. No edema. No effusions. No infiltrate. Chronic changes. Rhythm Strip Rhythm Strip: Sinus Rhythm Rate: 75 Ectopy: None EKG Initial EKG: Attestation: I personally reviewed and interpreted this EKG as follows: Interpretation: Sinus Rhythm and No Acute Injury Pattern Comments: Normal sinus rhythm rate of 75 no acute signs of MA nor ischemia. Discharge Plan Triage Chief Complaint: Weakness ED Provider: Trenton Lenz Dx/Rx/DC Orders Clinical Impression: Acute upper gastrointestinal bleeding, Acute anemia, Chronic anticoagulation, History of atrial fibrillation, Transfusion of blood during current hospitalisation Prescriptions: No Action magnesium oxide 200 mg magnesium tablet 200 mg PO DAILY multivitamin Capsule 1 cap PO DAILY triamterene-hydrochlorothiazid 37.5-25 mg tablet 1 tab PO QODAY coenzyme Q10 10 mg capsule 10 mg PO ONCE levothyroxine 112 mcg tablet 112 mcg PO DAILY cholecalciferol (vitamin D3) 50 mcg (2,000 unit) tablet 50 mcg PO DAILY (DME) spacer See Rx Instructions .ROUTE .MEDSUPPLY Qty: 1 0RF Rx Instructions: As directed fluticasone propion-salmeterol [Advair HFA] 230-21 mcg/actuation HFA aerosol inhaler 2 inh inhalation BID Qty: 3 3RF conjugated estrogens 1 DOSE cream 1 dose vaginal .COMPLEX Patient Comments: ONLY USES WHEN DRYNESS OCCURS Rx Instructions: 1 dose vaginally BI-WEEKLY; losartan 100 mg tablet 100 mg PO DAILY triamterene-hydrochlorothiazid 37.5-25 mg tablet 2 tab PO QODAY Eliquis 5 MG tablet 5 mg PO BID Probiotic 3 billion cell capsule 3,000 mmu cells PO DAILY Patient Comments: pt unsure of dosage Rx Instructions: administer with a meal (DME) spacer See Rx Instructions .ROUTE .MEDSUPPLY Qty: 1 0RF Rx Instructions: As directed metoprolol succinate 50 mg tablet extended release 24 hr 50 mg PO BID 90 Days Qty: 180 3RF Rx Instructions: This is a dose increase Primary Care Provider: Marika Park Referrals: Marika Park MD [Primary Care Provider] - Print Language: Gabonese Disposition Disposition: Acute Care [facility] What to do if you have Problems For any increased pain, shortness of breath, bleeding, nausea or vomiting, chestpain, or any unexpected problems, contact your Primary Care Provider. Call [facility] ([phone]) or report tothe closest Emergency Room. Call 911 if necessary. 12/31/24 1427 Cosigner Signature (if applicable): CC: Dr. Marika Park MD ~ Signed [facility]06-02-2025 Discharge summary Author Trenton Lenz [facility] Note Date/Time December 31, 2024 2:27p [facility] Medical Records Department [address] [place] [address] Emergency Department Summary 12/31/24 MR#: [id number] Acct: [id number] Name: MARIETTA TEMPLE Rep #:[id number] : 1945 79 From: Trenton Lenz MD PCP: Dr. Marika Park MD Status:RE G ER Location: ED HPI History of Present Illness Chief Complaint: Weakness Detail of Chief Complaint: Exertional dyspnea and fatigue. Informant: patient Onset/Context/Timing Onset: Days Context: Gradual Onset Timing: Intermittent Current Severity: Mild Maximum Severity: Mild Narrative Narrative: 79-year-old female history of atrial flutter on Eliquis and history of COPD. States since Tuesday she has had generalized weakness and fatigue. Exertional dyspnea at times some chest discomfort. Says she just does not have any energy. Denies any fever or chills. Denies any vomiting or diarrhea. Denies any dysuria. No abdominal pain. 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 Symptomatic menopausal or female climacteric states Vaginal enterocele, congenital or acquired Postmenopausal atrophic vaginitis Rectocele Plantar fasciitis Pain in joint, shoulder region Nontoxic multinodular goiter Indeterminate pulmonary nodules Hemorrhage of gastrointestinal tract, unspecified Cystocele, midline Benign neoplasm of colon Colon polyp Dyspnea on exertion Chest pain, unspecified Essential hypertension Ventricular ectopy Premature atrial contraction Paroxysmal atrial flutter Vision problems Thyroid cancer Skin cancer Osteoarthritis IBS (irritable bowel syndrome) Cancer Arthritis Ataxia Home Medications ?Medication ?Instructions ?Recorded ?Last Taken ?Type conjugated estrogens 0.625 mg/gram 1 dose vaginal .COM PLEX dryness 10/09/13 02/08/19 History vaginal cream magnesium oxide 200 mg PO DAILY 10/24/1909/25 History multivitamin 1 cap PO DAILY 10/24/1909/25 History triamterene 37.5 1 tab PO QODAY 07/16/2109/25 History mg-hydrochlorothiazide 25 mg tablet cholecalciferol (vitamin D3) 50 50 mcg PO DAILY 12/31/24 History mcg (2,000 unit) tablet coenzyme Q10 10 mg capsule 10 mg PO ONCE 01/07/2309/25 History levothyroxine 112 mcg tablet 112 mcg PO DAILY 01/07/23 12/30/24 History spacer #1 ea 02/22/23 Unknown Rx spacer #1 ea 03/21/23 Unknown Rx lactobacillus combination no.4 3 3,000 mmu cells PO DA ASHWIN supplement 08/15/24 History billion cell capsule (Probiotic) fluticasone propionate 230 2 inh inhalation BID #3 ea 09/18/24 12/31/24 Rx mcg-salmeterol 21 mcg/actuation HFA inhaler (Advair HFA) metoprolol succinate 50 mg 50 mg PO BID 90 days #180 t abs 09/28/24 12/31/24 Rx tablet,extended release 24 hr apixaban 5 mg tablet (Eliquis) 5 mg PO BID 12/31/24 History losartan 100 mg tablet 100 mg PO DAILY 12/31/2409/25 History triamterene 37.5 2 tab PO QODAY 12/31/2408/25 History mg-hydrochlorothiazide 25 mg tablet Allergy/AdvReac Type Severity Reaction Status Date / Time Sulfa (Sulfonamide Allergy Rash Verified 12/31/24 10:33 Antibiotics) codeine AdvReac Nausea Verified 12/31/24 10:33 Family History Father , 1977 Alcoholism Emphysema of lung Sister , 2016 ANGINA Cancer Diabetes CVA (cerebral vascular accident) Thyroid disorder Uterine cancer Brother Cancer Diabetes Mother Diabetes Myocardial infarction Heart disease 1964-59 YEARS Hypertension Surgical History History of cholecystectomy History of thyroidectomy Hx of breast reduction, elective History of bilateral knee replacement Social History Smoking Status: Former smoker how long ago did patient quit smokin alcohol intake: never substance use type: does not use caffeine: Yes Type: coffee Number of servings: 4 and tea ROS ROS ED ROS Narrative Exertional dyspnea. Fatigue. Occasional chest pressure. Constitutional Constitutional ED: Denies chills or fever(s) Eyes Eyes: Denies blurry vision ENT ENT ED: Denies ear pain Cardiovascular Cardiovascular: Reports chest pain Respiratory/Chest Respiratory/Chest: Reports dyspnea and dyspnea on exertion Gastrointestinal Gastrointestinal: Denies abdominal pain Genitourinary Genitourinary ED: Denies dysuria or hematuria Musculoskeletal Musculoskeletal: Denies arthralgias Integumentary Denies abscess Neurologic Neurologic: Denies headache(s) Psychiatric Psychiatric: Denies anxiety Endocrine Endocrinology: Denies cold intolerance Hematologic/Lymphatic Hematologic/Lymphatic: Reports none Allergic/Immunologic Allergic/Immunologic ED: Denies mouth swelling, tongue swelling or urticaria EXAM Physical Exam Narrative Exam Narrative: 79-year-old female sitting upright in bed. Vital signs are stable afebrile. Pulse ox is 97 to 99% on room air. She is in no distress. Currently no family with her. H EENT exam pupils round react light. Moist mucous membranes. No trauma. Neck nontender. Lungs clear to auscultation bilaterally. Heart regular rhythm rate about 75 no murmur. Chest wall and ribs nontender. Abdomensoft nontender. Back nontender. Moving all 4 extremities. Calves are nontender. There is no cords. She has normal allergy and immunology specialist strength. Normal dorsi plantarflexion. She does have bilateral very mild ankle edema. Neurologically she is awake and alert. Answering questions following commands.No focal motor deficits. Const Vital Signs: 12/31/24 10:33 12/31/24 11:33 12/31/24 12:00 Temperature 98 F Temperature Source Oral Pulse Rate 76 72 70 Respiratory Rate 16 16 16 Respiratory Pattern Blood Pressure 137/67 H 100/60 106/41 L Blood Pressure Mean 90 73 62 Pulse Ox 97 96 97 Oxygen Delivery Method Room Air Room Air 12/31/24 12:00 12/31/24 13:35 Temperature Temperature Source Pulse Rate 70 Respiratory Rate 10 L Respiratory Pattern Normal Blood Pressure 111/54 L Blood Pressure Mean 73 Pulse Ox 100 Oxygen Delivery Method Room Air Positive well nourished and well developed; Negative for cachectic, contracturesor unkempt General Appearance ED: well developed and NAD; Negative for unkempt, cachectic, contractures, cyanotic, diaphoretic or pallor Nutritional Appearance: Negative for cachectic HEENT Reports moist mucous membranes Negative for trauma or tenderness Eyes PERRL and EOMs intact bilaterally General Eye ED: Negative for pale conjunctiva Neck no lymphadenopathy, supple and no JVD General: Negative for tenderness Chest Wall inspection of chest normal and palpation of chest normal Resp normal respiratory effort and clear to auscultation bilaterally Auscultation: Negative for rales, rhonchi, wheezes or diminished lung sounds Cardio regular rate, regular rhythm, S1 normal heart sound, S2 normal heart sound and no murmurs GI normal to inspection, nondistended, normoactive bowel sounds, non-tender, non-distended and no masses Auscultation: normoactive bowel sounds Palpation: soft; Negative for tender, guarding or rebound tenderness present Back/Spine no CVA tenderness General Back: Negative for CVA tenderness Cervical Spine: Negative for cervical spine tenderness Thoracic Spine / Upper Back: Negative for thoracic spinal tenderness Lumbar Spine / Lower Back: Negative for lumbar spinal tenderness Extremity normal to inspection Extremity Narrative: Except for trace bilateral ankle edema. Nontender. General Extremety ED: Yes edema General Extremity: edema Neuro oriented x3 and CN's II-XII intact bilaterally Sensorium / Orientation: alert Motor Exam: strength 5/5 throughout Psych mental status grossly normal Appearance: Negative for unkempt Mood & Affect: Negative for depressed, anxious or tearful Skin no rashes or lesions noted, no wounds and skin turgor normal General Skin Exam: Negative for jaundice or pallor Lesions: No lesion noted Rashes: No rashes noted Trauma: Negative for abrasion Wounds: Negative for wounds noted MDM MDM MDM Narrative Medical decision making narrative: 79-year-old female on Eliquis due to atrial flutter with a history of COPD complaining of the at times generalized weakness and fatigue. Chest pressure. Differential would include cardiac disease, COPD, anemia excetra. She undergo cardiac workup. Exam is benign. Patient brought in a stool sample with her. It is very dark looks black looks like it could be from an upper GI bleed. Repeat exam patient is doing well at 2:20 PM. I explained to her she is anemic I suspect is from an upper GI bleed. She has been typed and crossed she will betransfused 2 units of blood. Have already spoken to the hospitalist to admit the patient. I have GI on page. History & Record Review Discussion w/independent historian: Patient Additional record(s) reviewed:: Prior inpatient record, Prior outpatient record,Prior ED visit and Prior labs Lab Data Attestation: I reviewed the patient's lab results. Lab results narrative: CBC shows a white count of 9. H&H of 6.2 and 20. Platelets of 330. Initial troponin 10. BMP shows a sodium 137. Gap 14. BUN 20 creatinine 0.8. Glucose 113. Labs are consistent with acute anemia secondary to a GI bleed which I suspect isupper Labs: Laboratory Results - last 24 hr 12/31/24 12/31/24 12/31/24 11:55 11:55 12:30 WBC Cancelled 9.0 Corrected WBC Cancelled RBC Cancelled 2.48 L Hgb Cancelled 6.2 L Hct Cancelled 20.1 L MCV Cancelled 81.0 MCH Cancelled 25.0 L MCHC Cancelled 30.8 L RDW Std Deviation Cancelled 44.1 H RDW Coeff of Carmine Cancelled 15.0 H Plt Count Cancelled 330 MPV Cancelled 10.6 Immature Gran % (Auto) Cancelled 0.600 Neut % (Auto) Cancelled 72.2 H Lymph % (Auto) Cancelled 15.4 L Nobles % (Auto) Cancelled 10.5 H Eos % (Auto) Cancelled 1.1 Baso % (Auto) Cancelled 0.2 Absolute Neuts (auto) Cancelled 6.5 Absolute Lymphs (auto) Cancelled 1.39 Total Counted Cancelled Neutrophils % (Manual) Cancelled Band Neutrophils % Cancelled Lymphocytes % (Manual) Cancelled Monocytes % (Manual) Cancelled Eosinophils % (Manual) Cancelled Basophils % (Manual) Cancelled Metamyelocytes % Cancelled Myelocytes % Cancelled Promyelocytes % Cancelled Blast Cells % Cancelled Plasma Cell % (Manual) Cancelled Other Cells % Cancelled Nucleated RBC % Cancelled 0 Nucleated RBCs/100 WBC Cancelled Differential Comment Cancelled Diff Path Review Cancelled Hypersegmented Neuts Cancelled Atypical Lymphocytes Cancelled Reactive Lymphocytes Cancelled Smudge Cells Cancelled Toxic Granulation Cancelled Toxic Vacuolation Cancelled Dohle Bodies Cancelled Naz Rods Cancelled Platelet Estimate Cancelled Plt Morphology Comment Cancelled RBC Morphology Cancelled Cancelled Polychromasia Cancelled Hypochromasia Cancelled Basophilic Stippling Cancelled Anisocytosis Cancelled Microcytosis Cancelled Macrocytosis Cancelled Spherocytes Cancelled Sickle Cells Cancelled Target Cells Cancelled Tear Drop Cells Cancelled Ovalocytes Cancelled Stomatocytes Cancelled [place] Bodies Cancelled [place] Cells Cancelled Bite Cells Cancelled Crenated Cell Cancelled Acanthocytes (Spur) Cancelled Rouleaux Cancelled Schistocytes Cancelled Sodium 137 Potassium 3.4 Chloride 101 Carbon Dioxide 22.3 Anion Gap 14 BUN 20 H Creatinine 0.88 Est GFR (MDRD) Non-Af 66 BUN/Creatinine Ratio 23.2 H Glucose 113 H Calcium 9.4 Troponin T High Sens 10 Radiography Chest X-Ray - ED: 2 View, Read by ED Physician, Read by Radiologist, Normal, Lungs, Mediastinum, Bony Structures, No Acute Disease and Chronic Changes Diagnostic Testing: Clinical Impression(s) from Imaging Studies Chest X-Ray 12/31/24 11:35 IMPRESSION: No acute cardiopulmonary process. Reading Location: [facility] Chest x-ray, 2 views, AP and lateral, interpreted both by myself and radiologistshows no acute process. Normal cardiac silhouette. No edema. No effusions. No infiltrate. Chronic changes. Rhythm Strip Rhythm Strip: Sinus Rhythm Rate: 75 Ectopy: None EKG Initial EKG: Attestation: I personally reviewed and interpreted this EKG as follows: Interpretation: Sinus Rhythm and No Acute Injury Pattern Comments: Normal sinus rhythm rate of 75 no acute signs of MA nor ischemia. Discharge Plan Triage Chief Complaint: Weakness ED Provider: Trenton Lenz Dx/Rx/DC Orders Clinical Impression: Acute upper gastrointestinal bleeding, Acute anemia, Chronic anticoagulation, History of atrial fibrillation, Transfusion of blood during current hospitalisation Prescriptions: No Action magnesium oxide 200 mg magnesium tablet 200 mg PO DAILY multivitamin Capsule 1 cap PO DAILY triamterene-hydrochlorothiazid 37.5-25 mg tablet 1 tab PO QODAY coenzyme Q10 10 mg capsule 10 mg PO ONCE levothyroxine 112 mcg tablet 112 mcg PO DAILY cholecalciferol (vitamin D3) 50 mcg (2,000 unit) tablet 50 mcg PO DAILY (DME) spacer See Rx Instructions .ROUTE .MEDSUPPLY Qty: 1 0RF Rx Instructions: As directed fluticasone propion-salmeterol [Advair HFA] 230-21 mcg/actuation HFA aerosol inhaler 2 inh inhalation BID Qty: 3 3RF conjugated estrogens 1 DOSE cream 1 dose vaginal .COMPLEX Patient Comments: ONLY USES WHEN DRYNESS OCCURS Rx Instructions: 1 dose vaginally BI-WEEKLY; losartan 100 mg tablet 100 mg PO DAILY triamterene-hydrochlorothiazid 37.5-25 mg tablet 2 tab PO QODAY Eliquis 5 MG tablet 5 mg PO BID Probiotic 3 billion cell capsule 3,000 mmu cells PO DAILY Patient Comments: pt unsure of dosage Rx Instructions: administer with a meal (DME) spacer See Rx Instructions .ROUTE .MEDSUPPLY Qty: 1 0RF Rx Instructions: As directed metoprolol succinate 50 mg tablet extended release 24 hr 50 mg PO BID 90 Days Qty: 180 3RF Rx Instructions: This is a dose increase Primary Care Provider: Marika Park Referrals: Marika Park MD [Primary Care Provider] - Print Language: Gabonese Disposition Disposition: Acute Care [facility] What to do if you have Problems For any increased pain, shortness of breath, bleeding, nausea or vomiting, chestpain, or any unexpected problems, contact your Primary Care Provider. Call [facility] ([phone]) or report to the closest Emergency Room. Call 911 if necessary. 12/31/24 1427 <Electronically signed by Trenton Lenz MD> Cosigner Signature (if applicable): CC: Dr. Marika Park MD ~ Signed [facility] Work Phone: 1(914) 732-190006-02-2025 Radiology Diagnostic study note [facility] [address] [place] [address] Chest PA and Lateral MR#: [id number] Acct: [id number] Name: MARIETTA TEMPLE Rep #: [id number] : 1945 F 79 From: Marilou Acevedo MD PCP: Dr. Marika Park MD Status: RE G ER Study:Chest PA and Lateral Date of Exam: 12/31/24 Exam# [id number] Ordering Dr: Marlena Lenz MD EXAM: XR Chest, 2 Views CLINICAL INDICATION: CHEST PAIN TECHNIQUE: Frontal and lateral views of the chest. COMPARISON: No relevant prior studies available. FINDINGS: LUNGS AND PLEURAL SPACES: Unremarkable. No consolidation. No pneumothorax. HEART: Unremarkable. No cardiomegaly. MEDIASTINUM: Unremarkable. Normal mediastinal contour. BONES/JOINTS: Unremarkable. No acute fracture. RAD/Chest PA and Lateral IMPRESSION: No acute cardiopulmonary process. Reading Location: [facility] CC: Dr. Trenton Lenz MD; Dr. Marika Park MD ~ Verifier Operator: Signed [facility]06-02-2025 NoteHNO ID: [id number] Author: CARLOS IBARRA APRN.SENIOR RECRUITMENT CONSULTANT Service: ? Author Type: Nurse Practitioner Type: Progress Notes Filed: 12/31/2024 10:28 Note Text: Patient came in with complaints of left-sided chest pain pressure and tightness. Patient says she is having shortness of breath. Patient does have some cardiac history. Patient says her arms feel very heavy she says she feels very fatigued. Concern for cardiac event. Patient is declining squad. Patient insisted on taking herself. Did tell her to go straight there.[facility]06-02-2025 History of Present illness Narrative* Carlos Ibarra APRN.CNP - 12/31/2024 10:27 AM EDT Patient came in with complaints of left-sided chest pain pressure and tightness. Patient says she is having shortness of breath. Patient does have some cardiac history. Patient says her arms feel very heavy she says she feels very fatigued. Concern for cardiac event. Patient is declining squad. Patient insisted on taking herself. Did tell her to go straight there. [facility] NoteHNO ID: [id number] Author: RAUL BONILLA MD Service: ? Author Type: Physician Type: Progress Notes Filed: 11/19/2024 16:33 Note Text: NO EXPRESS CARE Subjective Marietta Temple is a 79 year old female. Patient presents with: Chest Congestion: cough x 5 days Patient's had cough and congestion for 4 days. I wrote it 1 her only 1 chest feels tight and she is having trouble producing anything out of that. She had rhinorrhea increase over the weekend but has returned to normal. She has chronic postnasal drainage. She has used mucus relief [id number]. She continues to use her COPD inhaler twice a day prescribed by her change management specialist. Pulmonology note from September reveals treatment with prednisone for COPD exacerbation. She denies fever, chills, body aches, nausea, vomiting, diarrhea, or leg edema. She is little more tired than usual. Review of Systems Objective BP 124/70 Pulse 70 Temp 36.3 ?C (97.4 ?F) Resp 18 Wt 86.9 kg (191 lb 9.3 oz) SpO2 95% BMI 32.11 kg/m? Physical Exam Constitutional: General: She is not in acute distress. Appearance: Normal appearance. She is not ill-appearing. HENT: Right Ear: Tympanic membrane and ear canal normal. Left Ear: Tympanic membrane and ear canal normal. Nose: No congestion or rhinorrhea. Mouth/Throat: Mouth: Mucous membranes are moist. Pharynx: No oropharyngeal exudate or posterior oropharyngeal erythema. Eyes: Extraocular Movements: Extraocular movements intact. Conjunctiva/sclera: Conjunctivae normal. Pupils: Pupils are equal, round, and reactive to light. Cardiovascular: Rate and Rhythm: Normal rate and regular rhythm. Pulmonary: Effort: No respiratory distress. Breath sounds: Wheezing and rales (throughout) present. Musculoskeletal: Cervical back: Neck supple. No tenderness. Right lower leg: Edema (trace pitting edema) present. Left lower leg: Edema (1+ pitting) present. Lymphadenopathy: Cervical: No cervical adenopathy. Neurological: Mental Status: She is alert. {ASSESSMENT/PLAN: 1. COPD with exacerbation (HCC) - ICD9: 491.21, ICD10: J44.1 - PREDNISONE 20 MG TABLET burst Follow up with worsening cough, worsening shortness of breath, increasing chest pain, or late onset fever. Raul Bonilla MD History and Record Review External record(s) reviewed: prior outpatient record. Findings from review of outpatient records: Pulmonology consult from September Differential Diagnoses - COPD exacerbation is more likely for the following reason(s): suggested by HANDP - pneumonia is less likely for the following reason(s): lack of fever/malaise - CHF is less likely for the following reason(s): denies change in leg edema Additional Tests or Interventions The following testing was considered but ultimately not selected after discussion with patient/family: [facility] of Present illness Narrative* Raul Bonilla MD - 11/19/2024 4:21 PM EDT [facility] Subjective Marietta Temple is a 79 year old female. Patient presents with: Chest Congestion: cough x 5 days Patient's had cough and congestion for 4 days. I wrote it 1 her only 1 chest feels tight and she ishaving trouble producing anything out of that. She had rhinorrhea increase over the weekend but hasreturned to normal. She has chronic postnasal drainage. She has used mucus relief [id number].She continues to use her COPD inhaler twice a day prescribed by her change management specialist. Pulmonology notefrom September reveals treatment with prednisone for COPD exacerbation. She denies fever, chills, body aches, nausea, vomiting, diarrhea, or leg edema. She is little more tired than usual. Review of Systems Objective BP 124/70 Pulse 70 Temp 36.3 C (97.4 F) Resp 18 Wt 86.9 kg (191 lb 9.3 oz) SpO2 95% BMI32.11 kg/m Physical Exam Constitutional: General: She is not in acute distress. Appearance: Normal appearance. She is not ill-appearing. HENT: Right Ear: Tympanic membrane and ear canal normal. Left Ear: Tympanic membrane and ear canal normal. Nose: No congestion or rhinorrhea. Mouth/Throat: Mouth: Mucous membranes are moist. Pharynx: No oropharyngeal exudate or posterior oropharyngeal erythema. Eyes: Extraocular Movements: Extraocular movements intact. Conjunctiva/sclera: Conjunctivae normal. Pupils: Pupils are equal, round, and reactive to light. Cardiovascular: Rate and Rhythm: Normal rate and regular rhythm. Pulmonary: Effort: No respiratory distress. Breath sounds: Wheezing and rales (throughout) present. Musculoskeletal: Cervical back: Neck supple. No tenderness. Right lower leg: Edema (trace pitting edema) present. Left lower leg: Edema (1+ pitting) present. Lymphadenopathy: Cervical: No cervical adenopathy. Neurological: Mental Status: She is alert. {ASSESSMENT/PLAN: 1. COPD with exacerbation (HCC) - ICD9: 491.21, ICD10: J44.1 - PREDNISONE 20 MG TABLET burst Follow up with worsening cough, worsening shortness of breath, increasing chest pain, or late onsetfever. Raul Bonilla MD History and Record Review External record(s) reviewed: prior outpatient record. Findings from review of outpatient records: Pulmonology consult from September Differential Diagnoses - COPD exacerbation is more likely for the following reason(s): suggested by H&P - pneumonia is less likely for the following reason(s): lack of fever/malaise - CHF is less likely for the following reason(s): denies change in leg edema Additional Tests or Interventions The following testing was considered but ultimately not selected after discussion with patient/family: CXR Procedures [facility] Evaluation note* Diagnosis Onset Date Resolution Status Admit Date Essential hypertension chronic Fe bru2024 11:20am Paroxysmal atrial fibrillation chron ic September 06, 2024 11:20am COPD (chronic obstructive pulmonary disease) chronic September 1:39pm [facility] Work Phone: 1(763) 413-310602-06-2025 Evaluation note* Diagnosis Onset Date Resolution Status Admit Date Essential hypertension chronic Fe bruary 2024 11:20am Paroxysmal atrial fibrillation chron ic September 06, 2024 11:20am COPD (chronic obstructive pulmonary disease) chronic September 1:39pm Acute anemia acute December 31 2:34pm Chronic anticoagulation acute J 2024 2:34pm Exertional dyspnea acute December 312024 2:34pm Generalized weakness acute December 31, 2024 2:34pm GIB (gastrointestinal bleeding) acut e December 31, 2024 2:34pm History of atrial fibrillation acute December 31, 2024 2:34pm Medication side effect acute Ju 2024 2:34pm Melena acute December 31, 2024 2:34pm [facility] Work Phone: 1(250) 663-682210-04-2024 Instructions* Patient Instructions* Mindy Emerson APRN.CNP - 05/04/2024 11:39 AM EDT Keep taking the losartan as advised by Marika Park MD. Start taking the triamterene-hydrochlorothiazide as 1 pill alternating with taking 2 pills every other day (I.e. Tuesday take 1 pill, Tuesday take 2 pills, Tuesday take 1 pill and so on). Get blood work in 6-8 weeks. Check blood pressures at home, if running 150/90 or above then come in before scheduled follow up. documented in this encounterTrihealth10-04-2024 NoteHNO ID: [id number] Author: MINDY EMERSON APRN.CNP Service: ? Author Type: Nurse Practitioner Type: Progress Notes Filed: 05/04/2024 11:46 Note Text: POPEYE Temple is a 79 year old female here today for a check up on her medical problems. Chief Complaint Patient presents with: Recheck: blood pressure MANI Philip is a 79 year old female who presents for follow-up for hypertension. They are here today for a recheck of blood pressure. Blood pressure appears to be stable but still slightly elevated. Denies any symptoms referable to elevated blood pressure. Specifically denies headache, chest pain, palpitations, dyspnea and peripheral edema. Tolerating medications well. Her medications were reviewed today and her list is now up to date. Medications Current Outpatient Medications Medication Sig losartan (COZAAR) 100 mg tablet Take 1 tablet by mouth once daily. DOSE CHANGE, take one daily conjugated estrogens (PREMARIN) vaginal cream Use small amount at vaginal opening twice a week apixaban (ELIQUIS) 5 mg tab(s) Take 1 tablet by mouth two times a day. levothyroxine (SYNTHROID) 112 mcg tablet Take 1 tablet by mouth once daily. Take on empty stomach. For thyroid metoprolol succinate ER (TOPROL XL) 25 mg 24 hr tablet Take 1 tablet by mouth once daily. meclizine (ANTIVERT) 25 mg tab Take 1 tablet by mouth three times daily. (Patient taking differently: Take 25 mg by mouth as needed.) Multivitamin capsule Take 1 capsule by mouth once daily. magnesium oxide 200 mg magnesium tab Take 1 tablet by mouth once daily. cholecalciferol (VITAMIN D3) 50 mcg (2,000 unit) tablet Take 2,000 Units by mouth once daily. coenzyme Q10 (COENZYME Q-10) 100 mg cap capsule Take 100 mg by mouth once daily. triamterene-hydroCHLOROthiazide (MAXZIDE-25) 37.5-25 mg per tablet Take 1 tab on every other day and the other days take 2 tabs No current facility-administered medications for this visit. ALLERGIES Allergen Reactions Codeine GI Upset Other reaction(s): Nausea Sulfa (Sulfonamide * Rash UNSURE OF REACTION ACTIVE PROBLEM LIST Atrial Flutter By Electrocardiogram ([facility]) - 05/05/2021 Vertigo - 05/05/2021 Heart Palpitations - 10/21/2019 Chronic Right-Sided Low Back Pain Without Sciatica - 10/21/2019 History of Thyroid Cancer - 10/21/2019 Meningioma ([facility]) - 03/02/2019 Comment: Needs follow-up imaging in 12 months High Serum Thyroglobulin - 12/20/2018 Hypothyroidism, Postsurgical Indeterminate Pulmonary Nodules - 12/18/2012 Comment: CT stable 2009 through 10/2012. TO Cystocele, Midline - 11/03/2011 Rectocele - 03/03/2009 Vaginal Enterocele, Congenital Or Acquired - 03/03/2009 Dysmetabolic Syndrome X - 08/24/2007 Essential Hypertension Thyroid cancer - 07/16/2005 Comment: * Surgery (): total thyroidectomy (Dr. Guerrier) * Pathology (): Right lobe papillary CA 0.6cm, partially involving perithyroidal connective tissue. 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 Focal vascular and capsular invasion present. (): right neck node FNA (3.1cm sag x 0.8cm deep x 1.0cm transverse nodule high right neck in jugular groove), path=reactive lymph node * QUILES (): 100 mCi 131-Iodine given, TSH=54.79 (): 201 mCi 131-Iodine Rx, TSH=67.5 * Thyroglobulin (): VU=3185.0 ng/ml (Ab neg), prior to thyroidectomy (): TG=33.9, Ab neg, TSH=54.79 (): TG=0.7 ng/ml, Ab neg, unstim (): TG=1.0 ng/ml, Ab neg, unstim (): TG=10.7 ng/ml, Ab neg, Thyrogen stim (): TG=8.3 ng/ml, Ab neg, off T4 (TSH=16.7) (): TG=10.6 ng/ml, Ab neg, off T4 (TSH=67.5) (): TG=1.3 ng/ml, Ab neg (): TG=0.9 ng/ml, Ab neg (): TG=0.9 ng/ml, Ab neg (): TG Social History Tobacco Use Smoking status: Former Current packs/day: 0.00 Average packs/day: 1 pack/day for 30.0 years (30.0 ttl pk-yrs) Types: Cigarettes Start date: 09/29/1969 Quit date: 09/30/1999 Years since quittin.6 Smokeless tobacco: Never Vaping Use Vaping status: Never Used Substance Use Topics Alcohol use: Yes Comment: Rarely 1 per month Drug use: No Review of Systems Respiratory: Negative. Cardiovascular: Negative. OBJECTIVE BP 140/78 Pulse 67 Wt 187 lb 2.7 oz (84.9kg) SpO2 98% Physical Exam Vitals and nursing note reviewed. Constitutional: General: She is awake. She is not in acute distress. Appearance: Normal appearance. She is well-developed and well-groomed. She is not ill-appearing, toxic-appearing or diaphoretic. HENT: Head: Normocephalic. Right Ear: External ear normal. Left Ear: External ear normal. Nose: Nose normal. Eyes: General: Vision grossly intact. Conjunctiva/sclera: Conjunctivae normal. Pupils: Pupils are equal, round, and reactive to light. Neck: Vascular: No JVD. Trachea: Trachea normal. Cardiovascular: R (more content not included)...[facility] History of Present illness Narrative* Mindy Emerson APRN.SENIOR RECRUITMENT CONSULTANT - 05/04/2024 11:26 AM EDT SUBJECTIVE Marietta Temple is a 79 year old female here today for a check up on her medical problems. Chief Complaint Patient presents with: Recheck: blood pressure MANI Philip is a 79 year old female who presents for follow-up for hypertension. They are here today for arecheck of blood pressure. Blood pressure appears to be stable but still slightly elevated. Denies any symptoms referable to elevated blood pressure. Specifically denies headache, chest pain, palpitations, dyspnea and peripheral edema. Tolerating medications well. Her medications were reviewed today and her list is now up to date. Medications Current Outpatient Medications Medication Sig losartan (COZAAR) 100 mg tablet Take 1 tablet by mouth once daily. DOSE CHANGE, take one daily conjugated estrogens (PREMARIN) vaginal cream Use small amount at vaginal opening twice a week apixaban (ELIQUIS) 5 mg tab(s) Take 1 tablet by mouth two times a day. levothyroxine (SYNTHROID) 112 mcg tablet Take 1 tablet by mouth once daily. Take on empty stomach. For thyroid metoprolol succinate ER (TOPROL XL) 25 mg 24 hr tablet Take 1 tablet by mouth once daily. meclizine (ANTIVERT) 25 mg tab Take 1 tablet by mouth three times daily. (Patient taking differently: Take 25 mg by mouth as needed.) Multivitamin capsule Take 1 capsule by mouth once daily. magnesium oxide 200 mg magnesium tab Take 1 tablet by mouth once daily. cholecalciferol (VITAMIN D3) 50 mcg (2,000 unit) tablet Take 2,000 Units by mouth once daily. coenzyme Q10 (COENZYME Q-10) 100 mg cap capsule Take 100 mg by mouth once daily. triamterene-hydroCHLOROthiazide (MAXZIDE-25) 37.5-25 mg per tablet Take 1 tab on every other day and the other days take 2 tabs No current facility-administered medications for this visit. ALLERGIES Allergen Reactions Codeine GI Upset Other reaction(s): Nausea Sulfa (Sulfonamide * Rash UNSURE OF REACTION ACTIVE PROBLEM LIST Atrial Flutter By Electrocardiogram ([facility]) - 05/05/2021 Vertigo - 05/05/2021 Heart Palpitations - 10/21/2019 Chronic Right-Sided Low Back Pain Without Sciatica - 10/21/2019 History of Thyroid Cancer - 10/21/2019 Meningioma ([facility]) - 03/02/2019 Comment: Needs follow-up imaging in 12 months High Serum Thyroglobulin - 12/20/2018 Hypothyroidism, Postsurgical Indeterminate Pulmonary Nodules - 12/18/2012 Comment: CT stable 2009 through 10/2012. TO Cystocele, Midline - 11/03/2011 Rectocele - 03/03/2009 Vaginal Enterocele, Congenital Or Acquired - 03/03/2009 Dysmetabolic Syndrome X - 08/24/2007 Essential Hypertension Thyroid cancer - 07/16/2005 Comment: * Surgery (): total thyroidectomy (Dr. Guerrier) * Pathology (): Right lobe papillary CA 0.6cm, partially involving perithyroidal connective tissue. 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 Focal vascular and capsular invasion present. (): right neck node FNA (3.1cm sag x 0.8cm deep x 1.0cm transverse nodule high right neck in jugular groove), path=reactive lymph node * QUILES (): 100 mCi 131-Iodine given, TSH=54.79 (): 201 mCi 131-Iodine Rx, TSH=67.5 * Thyroglobulin (): SH=0359.0 ng/ml (Ab neg), prior to thyroidectomy (): TG=33.9, Ab neg, TSH=54.79 (): TG=0.7 ng/ml, Ab neg, unstim (): TG=1.0 ng/ml, Ab neg, unstim (): TG=10.7 ng/ml, Ab neg, Thyrogen stim (): TG=8.3 ng/ml, Ab neg, off T4 (TSH=16.7) (): TG=10.6 ng/ml, Ab neg, off T4 (TSH=67.5) (): TG=1.3 ng/ml, Ab neg (): TG=0.9 ng/ml, Ab neg (): TG=0.9 ng/ml, Ab neg (): TG Social History Tobacco Use Smoking status: Former Current packs/day: 0.00 Average packs/day: 1 pack/day for 30.0 years (30.0 ttl pk-yrs) Types: Cigarettes Start date: 09/29/1969 Quit date: 09/30/1999 Years since quittin.6 Smokeless tobacco: Never Vaping Use Vaping status: Never Used Substance Use Topics Alcohol use: Yes Comment: Rarely 1 per month Drug use: No Review of Systems Respiratory: Negative. Cardiovascular: Negative. OBJECTIVE BP 140/78 Pulse 67 Wt 187 lb 2.7 oz (84.9kg) SpO2 98% Physical Exam Vitals and nursing note reviewed. Constitutional: General: She is awake. She is not in acute distress. Appearance: Normal appearance. She is well-developed and well-groomed. She is not ill-appearing, toxic-appearing or diaphoretic. HENT: Head: Normocephalic. Right Ear: External ear normal. Left Ear: External ear normal. Nose: Nose normal. Eyes: General: Vision grossly intact. Conjunctiva/sclera: Conjunctivae normal. Pupils: Pupils are equal, round, and reactive to light. Neck: Vascular: No JVD. Trachea: Trachea normal. Cardiovascular: Rate and Rhythm: Normal rate and regular rhythm. Pulses: Normal pulses. Heart sounds: Normal heart sounds. No murmur heard. Pulmonary: Effort: Pulmonary effort is normal. No accessory muscle usage, prolonged expiration or respiratory distress. Breath sounds: Normal breath sounds. Musculoskeletal: Cervical back: Neck supple. Skin: General: Skin is warm and dry. Capillary Refill: Capillary refill takes less than 2 seconds. Neurological: General: No focal deficit present. Mental Status: She is alert and oriented to person, place, and time. Mental status is at baseline. Psychiatric: Attention and Perception: Attention and perception normal. Mood and Affect: Mood and affect normal. Speech: Speech normal. Behavior: Behavior normal. Behavior is cooperative. Thought Content: Thought content normal. Cognition and Memory: Cognition and memory normal. Judgment: Judgment normal. ASSESSMENT/PLAN: 1. Essential hypertension with goal blood pressure less than 140/90 - ICD9: 401.9, ICD10: I10 - Improving control - Increase Maxzide to every other day take 2 tabs, other days take 1 tab - Recommend home blood pressure monitoring, to bring results to next visit - Encouraged sodium restriction, DASH or Mediterranean diet - Recommend regular aerobic exercise - Reviewed risks of hypertension and principles of treatment - BASIC METABOLIC PANEL Portions of this note have been entered by ancillary staff. I have reviewed and when necessary edited, so that they are an adequate record of my encounter with this patient Please note that parts of this document were created using voice recognition software and therefore may contain grammatical errors. Patient verbalizes understanding of instructions from today's visit and in agreement with treatmentplan. Questions answered. Agrees to call the office if questions, concerns of issues with acute symptoms not improving or if they worsen. See diagnoses and orders for additional plan(s). Allergies and medications were reviewed, list was updated, and refills given if needed. Past medical, surgical, social, and family history reviewed and updated as appropriate. Encouraged proper diet & exercise as well as compliance with taking medications. Age- appropriate health preventative measures were discussed. Return if symptoms worsen or fail to improve, for Keep next scheduled appointment.. BRITTNY Fu documented in this encounterTri[facility]08-23-2024 Instructions* Patient Instructions* Marika Park MD - 03/23/2024 11:32 AM EDT Screening schedule The following prevention plan is recommended: Depression Screening Never done Anxiety Screening Never done DTaP,Tdap,Td Vaccine(1 - Tdap) Never done Shingrix Vaccine(1 of 2) Never done RSV Vaccine(1 - 1-dose 60+ series) Never done Advance Directive Discussion due on 08/01/2023 BP Controlled (<130/80) due on 03/15/2024 WHAT YOU CAN DO TO PREVENT FALLS Many falls can be prevented. By making some changes, you can lower your chances of falling. Four things YOU can do to prevent falls for you* and your caregiver 1. Begin a regular exercise program Exercise is one of the most important ways to lower your chances of falling. It makes you stronger and helps you feel better. Exercises that improve balance and coordination (like Adam Chi) are the most helpful. Lack of exercise leads to weakness and increases your chances of falling. Ask your doctor or health care provider about the best type of exercise program for you. 2. Have your health care provider review your medicines Have your doctor or pharmacist review all the medicines you take, even [id number] medicines. As you get older, the way medicines work in your body can change. Some medicines, or combinations of medicines, can make you sleepy or dizzy andcan cause you to fall. 3. Have your vision checked Have your eyes checked by an eye doctor at least once a year. You may be wearing the wrong glasses or have a condition like glaucoma or cataracts that limits your vision. Poor vision can increase your chances of falling. 4. Make your home safer About half of all falls happen at home. To make your home safer: Remove things you can trip over (like papers, books, clothes, and shoes) from stairs and places where you walk. Remove small throw rugs or use double-sided tape to keep the rugs from slipping. Keep items you use often in cabinets you can reach easily without using a step stool. Have grab bars put in next to your toilet and in the tub or shower. Use non-slip mats in the bathtub and on shower floors. Improve the lighting in your home. As you get older, you need brighter lights to see well. Hang light-weight curtains or shades to reduce glare. Have handrails and lights put in on all staircases. Wear shoes both inside and outside the house. Avoid going barefoot or wearing slippers. For more information, contact: Centers for Disease Control and Prevention www.cdc.gov/injury * This information may not apply if you have certain medical conditions. documented in this encounterTrihealth08-23-2024 History of Present illness Narrative* Marika Park MD - 03/23/2024 10:55 AM EDT Images from the original note were not included. This note was created using [employer]. Subjective Marietta Temple is a 79 year old female. HISTORY Marietta Temple is a 79 year old lady here for yearly exam and follow up appointment. Stable on meds. No adverse effects. Staying active. Water aerobics and golfing. See assessment and plan for other issues addressed. PAST MEDICAL HISTORY No date: Benign neoplasm of colon No date: Cancer (HCC) No date: Colon polyp No date: Cystocele, midline No date: Hemorrhage of gastrointestinal tract, unspecified No date: Hypothyroidism, postsurgical 12/18/2012: Indeterminate pulmonary nodules Comment: CT stable 2009 through 10/2012. 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 levothyroxine (SYNTHROID) 112 mcg tablet Take 1 tablet by mouth once daily. Take on empty stomach. For thyroid losartan (COZAAR) 50 mg tablet Take 1 tablet by mouth once daily. DOSE CHANGE, take one daily metoprolol succinate ER (TOPROL XL) 25 mg 24 hr tablet Take 1 tablet by mouth once daily. triamterene-hydroCHLOROthiazide (MAXZIDE-25) 37.5-25 mg per tablet Take 1 tablet by mouth once daily. conjugated estrogens (PREMARIN) vaginal cream Use small amount at vaginal opening twice a week meclizine (ANTIVERT) 25 mg tab Take 1 tablet by mouth three times daily. (Patient taking differently: Take 25 mg by mouth as needed.) Multivitamin capsule Take 1 capsule by mouth once daily. magnesium oxide 200 mg magnesium tab Take 1 tablet by mouth once daily. cholecalciferol (VITAMIN D3) 50 mcg (2,000 unit) tablet Take 2,000 Units by mouth once daily. coenzyme Q10 (COENZYME Q-10) 100 mg cap capsule Take 100 mg by mouth once daily. potassium chloride SR (MICRO-K) 8 mEq cpER Take 1 capsule by mouth once daily. (Patient not taking:Reported on 03/23/2024) furosemide (LASIX) 20 mg tablet Take 1 tablet by mouth once daily. diphenhydramine HCl (ALLERGY ORAL) Take 1 capsule by mouth once daily. (Patient not taking: Reported on 03/23/2024) No current facility-administered medications for this visit. ALLERGIES Allergen Reactions Codeine GI Upset Other reaction(s): Nausea Sulfa (Sulfonamide * Rash UNSURE OF REACTION FAMILY HISTORY Problem Relation Age of Onset Diabetes Mother Heart Mother Emphysema Father Diabetes Sister Cancer Sister Glaucoma Sister Cataract Sister other (Hypothyroidism) Sister Cancer Sister Diabetes Brother Cancer Brother brain Cancer Brother abdominal cancer Heart Brother Heart Brother Diabetes Brother Diabetes Maternal Grandmother Ischemic Heart Disease Son s/p MA Social History Tobacco Use Smoking status: Former Current packs/day: 0.00 Average packs/day: 1 pack/day for 30.0 years (30.0 ttl pk-yrs) Types: Cigarettes Start date: 09/29/1969 Quit date: 09/30/1999 Years since quittin.4 Smokeless tobacco: Never Vaping Use Vaping status: Never Used Substance Use Topics Alcohol use: Yes Comment: Rarely 1 per month Drug use: No Review of Systems Objective BP 144/82 Pulse 70 Temp 36.2 C (97.1 F) Resp 16 Ht 164.5 cm (5' 4.76) Wt 86.2 kg (190 lb0.6 oz) SpO2 96% BMI 31.85 kg/m Last 5 Encounter Wt Readings: Date: Wt: 03/23/2024 86.2 kg (190 lb 0.6 oz) 11/01/2023 87.1 kg (192 lb) 10/24/2023 86.6 kg (191 lb) 10/17/2023 87.1 kg (192 lb) 10/11/2023 86.8 kg (191 lb 4.8 oz) No waist measurement recorded Estimated body mass index is 31.85 kg/m as calculated from the following: Height as of this encounter: 164.5 cm (5' 4.76). Weight as of this encounter: 86.2 kg (190 lb 0.6 oz). Last 5 Encounter BP Readings: Date: BP: 03/23/2024 144/82 11/01/2023 145/77[192lb[ 10/24/2023 154/74[bp average[ 10/17/2023 131/78[bp average[ 10/11/2023 150/70 03/23/24 1026 03/23/24 1121 BP: 144/82 146/72 Pulse: 70 Resp: 16 Temp: 36.2 C (97.1 F) SpO2: 96% Weight: 86.2 kg (190 lb 0.6 oz) Height: 164.5 cm (5' 4.76) Physical Exam Assessment and Plan Marietta Temple is a 79 year old female here for a Medicare wellness visit. Medicare Health Risk Assessment General Health Very good Exercise: Minutes/Day 60 min Exercise: Days/Week 7 days Alcohol: Daily Use Never Alcohol: Drinks/Day Patient does not drink Alcohol: 6 or more drinks Never Feel off balance Yes (when has vertigo; not often recently) Concerns: Teeth/Dentures No Concerns: Sexual function No Troubled by feelings None of the above Frequency: Eating healthy diet Nearly every day ADLs requiring help None of the above Safety precautions in home/vehicle Yes Smoke, vape, chews tobacco No Difficulty hearing No Difficulty seeing No Current Providers Specialists: I have reviewed specialist-related care of the patient in the medical record. Outside specialists seen: Dr. Sal Basilio (ophthalmology); Dr. Grabiel Basilio (dermatology). Medical/Family history review Reviewed and updated problem list, medical/surgical/family/social history, medications, and allergies. Opioid use review Opioid Medications (last 90 days) No data to display Anxiety/Depression screening PHQ-9 Score: 0. LACHELLE-7 Score: 0. Recommendation: no further intervention at this time Cognitive screening Mini Cog Score: 5 Cognitive screening reviewed and No further action needed (score 3-5). Functional Observation Was the patient's Timed Up & Go test unsteady or >= 12 seconds? No Advance Care Planning Surrogate decision maker and/or advance care plan documented Has MEHRDAD and TORSTEN. Surrogate decision maker is Measurements BP 144/82 Pulse 70 Temp 36.2 C (97.1 F) Resp 16 Ht 164.5 cm (5' 4.76) Wt 86.2 kg (190 lb0.6 oz) SpO2 96% BMI 31.85 kg/m Vision Screening: Follows with optometry/ophthalmology Assessment/Plan Medicare annual wellness visit, subsequent (Z) - Counseled on healthy diet and regular exercise - Fall avoidance information provided - Personalized prevention plan provided Encounter Diagnosis ICD-10-CM 1. Medicare annual wellness visit, subsequent Z 2. Essential hypertension with goal blood pressure less than 140/90 I10 LIPID PANEL BASIC COMPREHENSIVE METABOLIC PANEL COMPLETE BLOOD COUNT THYROID STIMULATING HORMONE T4 FREE/FREE THYROXINE T3, FREE Fair control. Continue present management 3. History of thyroid cancer Z85.850 THYROGLOBULIN, SERUM WITH REFLEX TO IA OR LC-MS/MS No signs of recurrence 4. Hypothyroidism, postsurgical E89.0 THYROID STIMULATING HORMONE T4 FREE/FREE THYROXINE T3, FREE Stable on present management. Continue same 5. Hypocalcemia E83.51 VITAMIN D 25 HYDROXY Folllow up labs 6. Elevated hemoglobin A1c R73.09 COMPREHENSIVE METABOLIC PANEL Continue diet and exercise efforts for DM prevention 7. Encounter for long-term current use of medication Z79.899 LIPID PANEL BASIC COMPREHENSIVE METABOLIC PANEL COMPLETE BLOOD COUNT THYROID STIMULATING HORMONE T4 FREE/FREE THYROXINE T3, FREE THYROGLOBULIN, SERUM WITH REFLEX TO IA OR LC-MS/MS MAGNESIUM 8. Screening for depression Z13.31 DEPRESSION SCREENING 9. Encounter for screening examination for other mental health and behavioral disorders Z13.39 ANXIETY SCREENING 10. Encounter for immunization Z23 TDAP PRINTED PHARMACY INSTRUCTIONS [facility]ED [facility] INSTRUCTIONS RSV PRINTED [facility]ARMAC[facility] INSTRUCTIONS Marika Park MD documented in this encounterTrihealth06-18-2024 Telephone encounter Note * Telephone Encounter - Arcelia Mayfield OCCA - 01/17/2024 7:37 AM EDT Please see refill request 01/16/24. Routed to provider for review. CICI Lee [facility]-18-[facility] Miscellaneous Notes* Telephone Encounter - Arcelia Mayfield OCCA - 01/17/2024 7:37 AM EDT Please see refill request 01/16/24. Routed to provider for review. CICI Lee documented in this encounterTrihealth06-17-2024 Telephone encounter Note * Telephone Encounter - Holly Liang LPN - 01/16/2024 3:04 PM EDT Prescription Refill Information The patient has been identified by name and date of : Yes Caregiver verified no other encounters exist for this prescription request: Yes Caregiver confirmed with patient/requestor that no other refills are due, in the near future, with this provider at this time: Yes The last office visit in the department: 11/01/23 Does the patient have a future office visit with this provider/department: Yes Requested Prescriptions Pending Prescriptions Disp Refills apixaban (ELIQUIS) 5 mg tab(s) 180 tablet 3 Sig: Take 1 tablet by mouth two times a day. levothyroxine (SYNTHROID) 112 mcg tablet 90 tablet 3 Sig: Take 1 tablet by mouth once daily. Take on empty stomach. For thyroid losartan (COZAAR) 50 mg tablet 90 tablet 3 Sig: Take 1 tablet by mouth once daily. DOSE CHANGE, take one daily metoprolol succinate ER (TOPROL XL) 25 mg 24 hr tablet 90 tablet 3 Sig: Take 1 tablet by mouth once daily. triamterene-hydroCHLOROthiazide (MAXZIDE-25) 37.5-25 mg per tablet 90 tablet 3 Sig: Take 1 tablet by mouth once daily. Holly Liang LPN January 16, 2024 3:08 PM [facility]06-17-2024 Miscellaneous Notes* Telephone Encounter - Holly Liang LPN - 01/16/2024 3:04 PM EDT Prescription Refill Information The patient has been identified by name and date of : Yes Caregiver verified no other encounters exist for this prescription request: Yes Caregiver confirmed with patient/requestor that no other refills are due, in the near future, with this provider at this time: Yes The last office visit in the department: 11/01/23 Does the patient have a future office visit with this provider/department: Yes Requested Prescriptions Pending Prescriptions Disp Refills apixaban (ELIQUIS) 5 mg tab(s) 180 tablet 3 Sig: Take 1 tablet by mouth two times a day. levothyroxine (SYNTHROID) 112 mcg tablet 90 tablet 3 Sig: Take 1 tablet by mouth once daily. Take on empty stomach. For thyroid losartan (COZAAR) 50 mg tablet 90 tablet 3 Sig: Take 1 tablet by mouth once daily. DOSE CHANGE, take one daily metoprolol succinate ER (TOPROL XL) 25 mg 24 hr tablet 90 tablet 3 Sig: Take 1 tablet by mouth once daily. triamterene-hydroCHLOROthiazide (MAXZIDE-25) 37.5-25 mg per tablet 90 tablet 3 Sig: Take 1 tablet by mouth once daily. Holly Liang LPN January 16, 2024 3:08 PM documented in this encounterTrihealth05-14-2024 Progress note* Result Encounter Note - Guillermo Alcantara APRN.CNS - 12/13/2023 2:17 PM EDT Negative [facility]-14-[facility] Miscellaneous Notes* Result Encounter Note - Guillermo Alcantara APRN.CNS - 12/13/2023 2:17 PM EDT Negative documented in this encounterTrihealth04-02-2024 History of Present illness Narrative* Tammie Mckeon RT(R) - 11/01/2023 1:20 PM EDT Radiology Service Progress Note PATIENT NAME: Marietta Temple DATE OF SERVICE: November 01, 2023 TIME: 1:28 PM PATIENT IDENTITY VERIFICATION COMPLETED USING TWO (2) IDENTIFIERS: Name and Date of confirmedby patient verbally. FALL SCREENING: Has the patient had 2 falls in the last year or 1 fall with injury or currently using an Ambulatory Assistive Device (Walker, Cane, Wheelchair, Crutches, etc.)? No PATIENT GENDER DATA: Female. status: : No status: NO. PATIENT RELEVANT IMPLANT DATA REVIEWED: Not Applicable PATIENT PRESENTS WITH AN IMPLANTABLE OR ATTACHED PODODERMATOLOGIST: No RADIOLOGY DEPARTMENT: General X-ray: Exam(s) Completed: Lower Extremity X- Ray(s): Tibia Fibula, Left PERIPHERAL IV DATA: Not applicable SIGNED BY: RT Robe(R) November 01, 2023 1:28 PM documented in this encounterTrihealth04-02-2024 Instructions* Patient Instructions* Guillermo Alcantara APRN.CNS - 11/01/2023 10:42 AM EDT Complete ultrasound and x-ray of your left leg Continue to wash your leg with soap and water and apply ointment to the open wound on your bejarano. Elevate your leg when you are sitting down. If you are able to wear knee-high compression socks without pain in your leg please do so. You can return to exercise in the water once your wound is healed. Return to clinic for recheck if wound does not heal or pain continues following the above measures. documented in this encounterTrihealth04-02-2024 History of Present illness Narrative* Guillermo Alcantara APRN.CNS - 11/01/2023 10:00 AM EDT SUBJECTIVE: RSV Vaccine(1 - 1-dose 60+ series) Never done Covid-19 Vaccine(2022- season) Never done Advance Directive Discussion due on 08/01/2023 Depression Assessment due on 08/01/2023 HPI Marietta Temple is a 78 year old female. PMH significant for ACTIVE PROBLEM LIST Thyroid cancer Essential Hypertension Dysmetabolic Syndrome X Rectocele Vaginal Enterocele, Congenital Or Acquired Cystocele, Midline Indeterminate Pulmonary Nodules Hypothyroidism, Postsurgical High Serum Thyroglobulin Meningioma (Hcc) Heart Palpitations Chronic Right-Sided Low Back Pain Without Sciatica History of Thyroid Cancer Atrial Flutter By Electrocardiogram ([facility]) Vertigo Presents today for recheck of cellulitis. Today notes that she is feeling improved. She continues to have erythema and swelling in her left lower extremity. Wound on bejarano is nearly healed. It is less than previous. Afebrile. The wound on herleft bejarano is decreased in size. Review of Systems Constitutional: Negative. Skin: Positive for rash and wound. Objective BP 145/77 Pulse 70 Resp 16 Wt 87.1 kg (192 lb) BMI 32.96 kg/m Physical Exam Vitals and nursing note reviewed. Constitutional: Appearance: Normal appearance. HENT: Head: Normocephalic and atraumatic. Eyes: Conjunctiva/sclera: Conjunctivae normal. Cardiovascular: Rate and Rhythm: Normal rate and regular rhythm. Heart sounds: Normal heart sounds. Pulmonary: Effort: Pulmonary effort is normal. Breath sounds: Normal breath sounds. Abdominal: General: Bowel sounds are normal. Palpations: Abdomen is soft. Musculoskeletal: Right lower leg: Edema (scant ankle) present. Left lower leg: Edema (1-2+ ankle) present. Skin: General: Skin is warm and dry. Comments: Healing wound left anterior bejarano partia lthckness approximately 1/8 inch , no current drainage, erythema present at ankle only, no warmth, 1-2+ edema. Neurological: General: No focal deficit present. Mental Status: She is alert and oriented to person, place, and time. ALLERGIES Allergen Reactions Codeine GI Upset Other reaction(s): Nausea Sulfa (Sulfonamide * Rash UNSURE OF REACTION Medication potassium chloride SR (MICRO-K) 8 mEq cpER Take 1 capsule by mouth once daily. furosemide (LASIX) 20 mg tablet Take 1 tablet by mouth once daily. mupirocin (BACTROBAN) 2 % ointment Apply 1 application to affected area three times a day for 10 days. conjugated estrogens (PREMARIN) vaginal cream Use small amount at vaginal opening twice a week levothyroxine (SYNTHROID) 112 mcg tablet Take 1 tablet by mouth once daily. Take on empty stomach. For thyroid losartan (COZAAR) 50 mg tablet Take 1 tablet by mouth once daily. DOSE CHANGE, take one daily metoprolol succinate ER (TOPROL XL) 25 mg 24 hr tablet Take 1 tablet by mouth once daily. triamterene-hydroCHLOROthiazide (MAXZIDE-25) 37.5-25 mg per tablet Take 1 tablet by mouth once daily. apixaban (ELIQUIS) 5 mg tab(s) Take 1 tablet by mouth twice daily. meclizine (ANTIVERT) 25 mg tab Take 1 tablet by mouth three times daily. diphenhydramine HCl (ALLERGY ORAL) Take 1 capsule by mouth once daily. Multivitamin capsule Take 1 capsule by mouth once daily. magnesium oxide 200 mg magnesium tab Take 1 tablet by mouth once daily. cholecalciferol (VITAMIN D3) 50 mcg (2,000 unit) tablet Take 2,000 Units by mouth once daily. coenzyme Q10 (COENZYME Q-10) 100 mg cap capsule Take 100 mg by mouth once daily. PAST MEDICAL HISTORY Diagnosis Date Benign neoplasm of colon Cancer (HCC) Colon polyp Cystocele, midline Hemorrhage of gastrointestinal tract, unspecified Hypothyroidism, postsurgical Indeterminate pulmonary nodules 12/18/2012 CT stable 2009 through 10/2012. 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 Symptomatic menopausal or female climacteric states 03/03/2009 Unspecified essential hypertension Vaginal enterocele, congenital or acquired Vertigo Social History Tobacco Use Smoking status: Former Packs/day: 1.00 Years: 30.00 Additional pack years: 0.00 Total pack years: 30.00 Types: Cigarettes Quit date: 09/30/1999 Years since quittin.1 Smokeless tobacco: Never Vaping Use Vaping Use: Never used Substance Use Topics Alcohol use: Yes Comment: Rarely 1 per month Drug use: No Component Latest Ref Rng & Units 06/18/2020 07/18/2021 01/15/2022 Protein, Total 6.3 - 8.0 g/dL 7.3 Albumin 3.9 - 4.9 g/dL 4.2 Calcium 8.5 - 10.2 mg/dL 10.3 (H) 9.8 10.7 (H) Bilirubin, Total 0.2 - 1.3 mg/dL 0.3 Alkaline Phosphatase 34 - 123 U/L 101 AST 13 - 35 U/L 23 ALT 7 - 38 U/L 24 Glucose 74 - 99 mg/dL 70 (L) 92 90 BUN 7 - 21 mg/dL 13 13 15 Creatinine 0.58 - 0.96 mg/dL 0.82 0.69 0.69 Sodium 136 - 144 mmol/L 141 141 140 Potassium 3.7 - 5.1 mmol/L 3.7 4.3 4.1 Chloride 97 - 105 mmol/L 99 102 100 CO2 22 - 30 mmol/L 31 (H) 29 29 Anion Gap 9 - 18 mmol/L 11 10 11 eGFR >=60 mL/min/1.73m 90 eGFR- >60 >60 eGFR-All Other Races . >60 >60 WBC 3.70 - 11.00 k/uL 9.40 8.00 8.71 RBC 3.90 - 5.20 m/uL 5.00 5.03 5.11 Hemoglobin 11.5 - 15.5 g/dL 14.0 13.8 13.9 Hematocrit 36.0 - 46.0 % 44.8 44.4 45.3 MCV 80.0 - 100.0 fL 89.6 88.3 88.6 MCH 26.0 - 34.0 pg 28.0 27.4 27.2 MCHC 30.5 - 36.0 g/dL 31.3 31.1 30.7 RDW-CV 11.5 - 15.0 % 13.5 13.9 14.3 Platelet Count 150 - 400 k/uL 331 311 318 MPV 9.0 - 12.7 fL 11.0 11.3 10.8 Absolute nRBC <0.01 k/uL <0.01 <0.01 <0.01 Thyroglobulin 1.6 - 59.9 ng/mL 7.7 8.3 TG Antibody Screen <14.4 IU/mL <1.0 Hemoglobin A1C 4.3 - 5.6 % 5.8 (H) 5.9 (H) Estimated Average Glucose mg/dL 120 123 TSH 0.270 - 4.200 mIU/L 0.924 1.150 0.103 (L) Free T4 0.9 - 1.7 ng/dL 1.7 1.8 (H) Free T3 2.3 - 4.1 pg/mL 2.9 Thyroglobulin Ab <14.4 IU/mL <1.0 ASSESSMENT/PLAN: 1. Left leg cellulitis - ICD9: 682.6, ICD10: L03.116traumatic injury was the onset / cause of the cellulitis. Not yet healed but improved. Culture showed some staph. She notes chronic left leg swelling, reports present for years. Complete ultrasound and x-ray of left leg Continue to wash y leg with soap and water and apply ointment to the open wound on bejarano. Elevate leg when you are sitting down. If you are able to wear knee-high compression socks without pain in your leg please do so. You can return to exercise in the water once your wound is healed. Return to clinic for recheck if wound does not heal or pain continues following the above measures. Continue to wash your leg with soap and water and apply ointment to the open wound on your bejarano. No further antibiotic for now. - US DVT LE LEFT - XR TIBIA FIBULA 2V AP/LAT LEFT Guillermo Quinton, AUTOMATED ACCESS SYSTEMS [email or web address].IS CONSULTANT Medical Decision Making: Problems: Moderate: 1+ chronic illnesses with change Data: Unique test(s) ordered: 2 Risk: Moderate: Drug management Medical Decision Making Level: 4 - Moderate documented in this encounterTrihealth03-25-2024 History of Present illness Narrative* Guillermo Alcantara APRN.CNS - 10/24/2023 10:00 AM EDT SUBJECTIVE: RSV Vaccine(1 - 1-dose 60+ series) Never done Influenza Vaccine(1) Never done Covid-19 Vaccine( season) Never done Advance Directive Discussion due on 08/01/2023 Depression Assessment due on 08/01/2023 HPI Marietta Temple is a 78 year old female. PMH significant for ACTIVE PROBLEM LIST Thyroid cancer Essential Hypertension Dysmetabolic Syndrome X Rectocele Vaginal Enterocele, Congenital Or Acquired Cystocele, Midline Indeterminate Pulmonary Nodules Hypothyroidism, Postsurgical High Serum Thyroglobulin Meningioma ([facility]) Heart Palpitations Chronic Right-Sided Low Back Pain Without Sciatica History of Thyroid Cancer Atrial Flutter By Electrocardiogram ([facility]) Vertigo Presents today for recheck of cellulitis. HPI excerpted from previous visit: Presents today for [facility] follow[facility]up [facility]. She was seen in express care on October 09, 2023 forcellulitis of left lower extremity after cutting her leg on a branch a week prior. She was treated with cephalexin and doxycycline. She was advised to follow-up in 2 days. Today notes that she is tolerating antibiotics well. No adverse effects noted. The pain and rednessand warmth in her left lower extremity is decreased. She has been applying antibacterial ointment over the area of injury and Vaseline over the rest of her lower leg which was looking dry. She has chronic left leg swelling left greater than right that is increased from baseline but improved since she was seen in urgent care. Afebrile. Today notes that she is feeling improved. She continues to have erythema, warmth and swelling in her left lower extremity. It is less than previous. Afebrile. The wound on her left bejarano is decreased in size. Review of Systems Constitutional: Negative. Skin: Positive for rash and wound. Objective BP 154/74 Pulse 66 Resp 16 Wt 86.6 kg (191 lb) BMI 32.79 kg/m Physical Exam Vitals and nursing note reviewed. Constitutional: Appearance: Normal appearance. HENT: Head: Normocephalic and atraumatic. Eyes: Conjunctiva/sclera: Conjunctivae normal. Cardiovascular: Rate and Rhythm: Normal rate and regular rhythm. Heart sounds: Normal heart sounds. Pulmonary: Effort: Pulmonary effort is normal. Breath sounds: Normal breath sounds. Abdominal: General: Bowel sounds are normal. Palpations: Abdomen is soft. Musculoskeletal: Right lower leg: Edema (scant ankle) present. Left lower leg: Edema (1-2+ ankle) present. Skin: General: Skin is warm and dry. Comments: Healing wound left anterior bejarano approximately 1/4 x 1/8 inch , no current drainage, erythema present at ankle only, no warmth, less edema. f Neurological: General: No focal deficit present. Mental Status: She is alert and oriented to person, place, and time. ALLERGIES Allergen Reactions Codeine GI Upset Other reaction(s): Nausea Sulfa (Sulfonamide * Rash UNSURE OF REACTION Medication potassium chloride SR (MICRO-K) 8 mEq cpER Take 1 capsule by mouth once daily. furosemide (LASIX) 20 mg tablet Take 1 tablet by mouth once daily. cephALEXin (KEFLEX) 500 mg capsule Take 1 capsule by mouth four times daily for 4 days. Take with food doxycycline (VIBRA-TABS) 100 mg tablet Take 1 tablet by mouth two times a day for 4 days. Take withfood mupirocin (BACTROBAN) 2 % ointment Apply 1 application to affected area three times a day for 10 days. conjugated estrogens (PREMARIN) vaginal cream Use small amount at vaginal opening twice a week levothyroxine (SYNTHROID) 112 mcg tablet Take 1 tablet by mouth once daily. Take on empty stomach. For thyroid losartan (COZAAR) 50 mg tablet Take 1 tablet by mouth once daily. DOSE CHANGE, take one daily metoprolol succinate ER (TOPROL XL) 25 mg 24 hr tablet Take 1 tablet by mouth once daily. triamterene-hydroCHLOROthiazide (MAXZIDE-25) 37.5-25 mg per tablet Take 1 tablet by mouth once daily. apixaban (ELIQUIS) 5 mg tab(s) Take 1 tablet by mouth twice daily. meclizine (ANTIVERT) 25 mg tab Take 1 tablet by mouth three times daily. diphenhydramine HCl (ALLERGY ORAL) Take 1 capsule by mouth once daily. Multivitamin capsule Take 1 capsule by mouth once daily. magnesium oxide 200 mg magnesium tab Take 1 tablet by mouth once daily. cholecalciferol (VITAMIN D3) 50 mcg (2,000 unit) tablet Take 2,000 Units by mouth once daily. coenzyme Q10 (COENZYME Q-10) 100 mg cap capsule Take 100 mg by mouth once daily. PAST MEDICAL HISTORY Diagnosis Date Benign neoplasm of colon Cancer (HCC) Colon polyp Cystocele, midline Hemorrhage of gastrointestinal tract, unspecified Hypothyroidism, postsurgical Indeterminate pulmonary nodules 12/18/2012 CT stable 2009 through 10/2012. 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 Symptomatic menopausal or female climacteric states 03/03/2009 Unspecified essential hypertension Vaginal enterocele, congenital or acquired Vertigo Social History Tobacco Use Smoking status: Former Packs/day: 1.00 Years: 30.00 Additional pack years: 0.00 Total pack years: 30.00 Types: Cigarettes Quit date: 09/30/1999 Years since quittin.0 Smokeless tobacco: Never Vaping Use Vaping Use: Never used Substance Use Topics Alcohol use: Yes Comment: Rarely 1 per month Drug use: No Component Latest Ref Rng & Units 06/18/2020 07/18/2021 01/15/2022 Protein, Total 6.3 - 8.0 g/dL 7.3 Albumin 3.9 - 4.9 g/dL 4.2 Calcium 8.5 - 10.2 mg/dL 10.3 (H) 9.8 10.7 (H) Bilirubin, Total 0.2 - 1.3 mg/dL 0.3 Alkaline Phosphatase 34 - 123 U/L 101 AST 13 - 35 U/L 23 ALT 7 - 38 U/L 24 Glucose 74 - 99 mg/dL 70 (L) 92 90 BUN 7 - 21 mg/dL 13 13 15 Creatinine 0.58 - 0.96 mg/dL 0.82 0.69 0.69 Sodium 136 - 144 mmol/L 141 141 140 Potassium 3.7 - 5.1 mmol/L 3.7 4.3 4.1 Chloride 97 - 105 mmol/L 99 102 100 CO2 22 - 30 mmol/L 31 (H) 29 29 Anion Gap 9 - 18 mmol/L 11 10 11 eGFR >=60 mL/min/1.73m 90 eGFR- >60 >60 eGFR-All Other Races . >60 >60 WBC 3.70 - 11.00 k/uL 9.40 8.00 8.71 RBC 3.90 - 5.20 m/uL 5.00 5.03 5.11 Hemoglobin 11.5 - 15.5 g/dL 14.0 13.8 13.9 Hematocrit 36.0 - 46.0 % 44.8 44.4 45.3 MCV 80.0 - 100.0 fL 89.6 88.3 88.6 MCH 26.0 - 34.0 pg 28.0 27.4 27.2 MCHC 30.5 - 36.0 g/dL 31.3 31.1 30.7 RDW-CV 11.5 - 15.0 % 13.5 13.9 14.3 Platelet Count 150 - 400 k/uL 331 311 318 MPV 9.0 - 12.7 fL 11.0 11.3 10.8 Absolute nRBC <0.01 k/uL <0.01 <0.01 <0.01 Thyroglobulin 1.6 - 59.9 ng/mL 7.7 8.3 TG Antibody Screen <14.4 IU/mL <1.0 Hemoglobin A1C 4.3 - 5.6 % 5.8 (H) 5.9 (H) Estimated Average Glucose mg/dL 120 123 TSH 0.270 - 4.200 mIU/L 0.924 1.150 0.103 (L) Free T4 0.9 - 1.7 ng/dL 1.7 1.8 (H) Free T3 2.3 - 4.1 pg/mL 2.9 Thyroglobulin Ab <14.4 IU/mL <1.0 ASSESSMENT/PLAN: 1. Left leg cellulitis - ICD9: 682.6, ICD10: L03.116 Extend antibiotics an additional 4 days. 5 more days with diuretic and potassium repletion. Wash with soap and water daily. Switch to Bactroban ointment. Cover with a bandage. Recheck 1 week Advised: We will extend your antibiotics another 7 days. Take these with food. We will add a water pill for 5 days - furosemide. Take this first thing in the morning Take potassium capsule along with the water pill with breakfast Continue to wash your leg with soap and water and apply ointment to the open wound on your bejarano. Elevate your leg when you are sitting down. If you are able to wear knee-high compression socks without pain in your leg please do so. Consider completing x-ray at her next visit if not continuing to progress or healed, traumatic injury was the onset / cause of the cellulitis. - XR TIBIA FIBULA 2V AP/LAT LEFT Guillermo Alcantara APRN.CNS Medical Decision Making: Problems: Low: Acute, uncomplicated illness or injury Risk: Moderate: Drug management Medical Decision Making Level: 3 - Low documented in this encounterTrihealth03-18-2024 Instructions* Patient Instructions* Guillermo Alcantara APRN.CNS - 10/17/2023 10:38 AM EDT We will extend your antibiotics another 7 days. Take these with food. We will add a water pill for 5 days - furosemide. Take this first thing in the morning Take potassium capsule along with the water pill with breakfast Continue to wash your leg with soap and water and apply ointment to the open wound on your bejarano. Elevate your leg when you are sitting down. If you are able to wear knee-high compression socks without pain in your leg please do so. documented in this encounterTrihealth03-18-2024 History of Present illness Narrative* Guillermo Alcantara APRN.CNS - 10/17/2023 10:00 AM EDT SUBJECTIVE: RSV Vaccine(1 - 1-dose 60+ series) Never done Influenza Vaccine(1) Never done Covid-19 Vaccine(2022- season) Never done Advance Directive Discussion due on 08/01/2023 Depression Assessment due on 08/01/2023 MANI Temple is a 78 year old female. PMH significant for ACTIVE PROBLEM LIST Thyroid cancer Essential Hypertension Dysmetabolic Syndrome X Rectocele Vaginal Enterocele, Congenital Or Acquired Cystocele, Midline Indeterminate Pulmonary Nodules Hypothyroidism, Postsurgical High Serum Thyroglobulin Meningioma ([facility]) Heart Palpitations Chronic Right-Sided Low Back Pain Without Sciatica History of Thyroid Cancer Atrial Flutter By Electrocardiogram ([facility]) Vertigo Presents today for recheck of cellulitis. HPI excerpted from previous visit: Presents today for [facility] follow-up visit. She was seen in [facility] on October 09, 2023 forcellulitis of left lower extremity after cutting her leg on a branch a week prior. She was treated with cephalexin and doxycycline. She was advised to follow-up in 2 days. Today notes that she is tolerating antibiotics well. No adverse effects noted. The pain and rednessand warmth in her left lower extremity is decreased. She has been applying antibacterial ointment over the area of injury and Vaseline over the rest of her lower leg which was looking dry. She has chronic left leg swelling left greater than right that is increased from baseline but improved since she was seen in urgent care. Afebrile. Today notes that she is feeling improved. She continues to have erythema, warmth and swelling in her left lower extremity. It is less than previous. Afebrile. The wound on her left bejarano is decreased in size. Review of Systems Constitutional: Negative. Skin: Positive for rash and wound. Objective BP 131/78 Pulse 71 Resp 16 Wt 87.1 kg (192 lb) BMI 32.96 kg/m Physical Exam Vitals and nursing note reviewed. Constitutional: Appearance: Normal appearance. HENT: Head: Normocephalic and atraumatic. Eyes: Conjunctiva/sclera: Conjunctivae normal. Cardiovascular: Rate and Rhythm: Normal rate and regular rhythm. Heart sounds: Normal heart sounds. Pulmonary: Effort: Pulmonary effort is normal. Breath sounds: Normal breath sounds. Abdominal: General: Bowel sounds are normal. Palpations: Abdomen is soft. Musculoskeletal: Right lower leg: Edema (scant ankle) present. Left lower leg: Edema (1-2+ ankle) present. Skin: General: Skin is warm and dry. Comments: Healing wound left anterior bejarano approximately 1/2 x 1/4 inch , no current drainage, erythema present from foot to mid calf, very little warmth Neurological: General: No focal deficit present. Mental Status: She is alert and oriented to person, place, and time. ALLERGIES Allergen Reactions Codeine GI Upset Other reaction(s): Nausea Sulfa (Sulfonamide * Rash UNSURE OF REACTION Medication conjugated estrogens (PREMARIN) vaginal cream Use small amount at vaginal opening twice a week levothyroxine (SYNTHROID) 112 mcg tablet Take 1 tablet by mouth once daily. Take on empty stomach. For thyroid losartan (COZAAR) 50 mg tablet Take 1 tablet by mouth once daily. DOSE CHANGE, take one daily metoprolol succinate ER (TOPROL XL) 25 mg 24 hr tablet Take 1 tablet by mouth once daily. triamterene-hydroCHLOROthiazide (MAXZIDE-25) 37.5-25 mg per tablet Take 1 tablet by mouth once daily. apixaban (ELIQUIS) 5 mg tab(s) Take 1 tablet by mouth twice daily. meclizine (ANTIVERT) 25 mg tab Take 1 tablet by mouth three times daily. diphenhydramine HCl (ALLERGY ORAL) Take 1 capsule by mouth once daily. Multivitamin capsule Take 1 capsule by mouth once daily. magnesium oxide 200 mg magnesium tab Take 1 tablet by mouth once daily. cholecalciferol (VITAMIN D3) 50 mcg (2,000 unit) tablet Take 2,000 Units by mouth once daily. coenzyme Q10 (COENZYME Q-10) 100 mg cap capsule Take 100 mg by mouth once daily. cephALEXin (KEFLEX) 500 mg capsule Take 1 capsule by mouth four times daily for 7 days. Take with food doxycycline (VIBRA-TABS) 100 mg tablet Take 1 tablet by mouth two times a day for 7 days. Take withfood furosemide (LASIX) 20 mg tablet Take 1 tablet by mouth once daily. potassium chloride SR (MICRO-K) 8 mEq cpER Take 1 capsule by mouth once daily. PAST MEDICAL HISTORY Diagnosis Date Benign neoplasm of colon Cancer (HCC) Colon polyp Cystocele, midline Hemorrhage of gastrointestinal tract, unspecified Hypothyroidism, postsurgical Indeterminate pulmonary nodules 12/18/2012 CT stable 2009 through 10/2012. 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 Symptomatic menopausal or female climacteric states 03/03/2009 Unspecified essential hypertension Vaginal enterocele, congenital or acquired Vertigo Social History Tobacco Use Smoking status: Former Packs/day: 1.00 Years: 30.00 Additional pack years: 0.00 Total pack years: 30.00 Types: Cigarettes Quit date: 09/30/1999 Years since quittin.0 Smokeless tobacco: Never Vaping Use Vaping Use: Never used Substance Use Topics Alcohol use: Yes Comment: Rarely 1 per month Drug use: No Component Latest Ref Rng & Units 06/18/2020 07/18/2021 01/15/2022 Protein, Total 6.3 - 8.0 g/dL 7.3 Albumin 3.9 - 4.9 g/dL 4.2 Calcium 8.5 - 10.2 mg/dL 10.3 (H) 9.8 10.7 (H) Bilirubin, Total 0.2 - 1.3 mg/dL 0.3 Alkaline Phosphatase 34 - 123 U/L 101 AST 13 - 35 U/L 23 ALT 7 - 38 U/L 24 Glucose 74 - 99 mg/dL 70 (L) 92 90 BUN 7 - 21 mg/dL 13 13 15 Creatinine 0.58 - 0.96 mg/dL 0.82 0.69 0.69 Sodium 136 - 144 mmol/L 141 141 140 Potassium 3.7 - 5.1 mmol/L 3.7 4.3 4.1 Chloride 97 - 105 mmol/L 99 102 100 CO2 22 - 30 mmol/L 31 (H) 29 29 Anion Gap 9 - 18 mmol/L 11 10 11 eGFR >=60 mL/min/1.73m 90 eGFR- >60 >60 eGFR-All Other Races . >60 >60 WBC 3.70 - 11.00 k/uL 9.40 8.00 8.71 RBC 3.90 - 5.20 m/uL 5.00 5.03 5.11 Hemoglobin 11.5 - 15.5 g/dL 14.0 13.8 13.9 Hematocrit 36.0 - 46.0 % 44.8 44.4 45.3 MCV 80.0 - 100.0 fL 89.6 88.3 88.6 MCH 26.0 - 34.0 pg 28.0 27.4 27.2 MCHC 30.5 - 36.0 g/dL 31.3 31.1 30.7 RDW-CV 11.5 - 15.0 % 13.5 13.9 14.3 Platelet Count 150 - 400 k/uL 331 311 318 MPV 9.0 - 12.7 fL 11.0 11.3 10.8 Absolute nRBC <0.01 k/uL <0.01 <0.01 <0.01 Thyroglobulin 1.6 - 59.9 ng/mL 7.7 8.3 TG Antibody Screen <14.4 IU/mL <1.0 Hemoglobin A1C 4.3 - 5.6 % 5.8 (H) 5.9 (H) Estimated Average Glucose mg/dL 120 123 TSH 0.270 - 4.200 mIU/L 0.924 1.150 0.103 (L) Free T4 0.9 - 1.7 ng/dL 1.7 1.8 (H) Free T3 2.3 - 4.1 pg/mL 2.9 Thyroglobulin Ab <14.4 IU/mL <1.0 ASSESSMENT/PLAN: 1. Left leg cellulitis - ICD9: 682.6, ICD10: L03.116 Advised: We will extend your antibiotics another 7 days. Take these with food. We will add a water pill for 5 days - furosemide. Take this first thing in the morning Take potassium capsule along with the water pill with breakfast Continue to wash your leg with soap and water and apply ointment to the open wound on your bejarano. Elevate your leg when you are sitting down. If you are able to wear knee-high compression socks without pain in your leg please do so. Consider completing x-ray at her next visit if not continuing to progress or healed, traumatic injury was the onset / cause of the cellulitis. - XR TIBIA FIBULA 2V AP/LAT LEFT Guillermo Alcantara APRN.CNS Medical Decision Making: Problems: Low: Acute, uncomplicated illness or injury Data: Unique test(s) ordered: 1 Risk: Moderate: Drug management Medical Decision Making Level: 3 - Low documented in this encounterTrihealth03-12-2024 History of Present illness Narrative* Guillermo Alcantara APRN.CNS - 10/11/2023 9:00 AM EDT SUBJECTIVE: RSV Vaccine(1 - 1-dose 60+ series) Never done Influenza Vaccine(1) Never done Covid-19 Vaccine(2022- season) Never done Advance Directive Discussion due on 08/01/2023 Depression Assessment due on 08/01/2023 HPI Marietta Temple is a 78 year old female. PMH significant for ACTIVE PROBLEM LIST Thyroid cancer Essential Hypertension Dysmetabolic Syndrome X Rectocele Vaginal Enterocele, Congenital Or Acquired Cystocele, Midline Indeterminate Pulmonary Nodules Hypothyroidism, Postsurgical High Serum Thyroglobulin Meningioma (Hcc) Heart Palpitations Chronic Right-Sided Low Back Pain Without Sciatica History of Thyroid Cancer Atrial Flutter By Electrocardiogram ([facility]) Vertigo Presents today for [facility] follow-up visit. She was seen in [facility] on October 09, 2023 forcellulitis of left lower extremity after cutting her leg on a branch a week prior. She was treated with cephalexin and doxycycline. She was advised to follow-up in 2 days. Today notes that she is tolerating antibiotics well. No adverse effects noted. The pain and rednessand warmth in her left lower extremity is decreased. She has been applying antibacterial ointment over the area of injury and Vaseline over the rest of her lower leg which was looking dry. She has chronic left leg swelling left greater than right that is increased from baseline but improved since she was seen in urgent care. Afebrile. Review of Systems Constitutional: Negative. Objective BP 150/70 (BP Site: Left Arm, BP Position: Sitting, BP Cuff Size: Large Adult) Pulse 80 Temp (!) 35.9 C (96.6 F) (Temporal) Wt 86.8 kg (191 lb 4.8 oz) SpO2 98% BMI 32.84 kg/m Physical Exam Vitals and nursing note reviewed. Constitutional: Appearance: Normal appearance. HENT: Head: Normocephalic and atraumatic. Eyes: Conjunctiva/sclera: Conjunctivae normal. Cardiovascular: Rate and Rhythm: Normal rate and regular rhythm. Heart sounds: Normal heart sounds. Pulmonary: Effort: Pulmonary effort is normal. Breath sounds: Normal breath sounds. Abdominal: General: Bowel sounds are normal. Palpations: Abdomen is soft. Musculoskeletal: Right lower leg: Edema (scant ankle) present. Left lower leg: Edema (mild ankle) present. Skin: General: Skin is warm and dry. Comments: Healing wound left anterior bejarano approximately 1 inch diameter, no current drainage, erythema present from foot to mid calf, very little warmth Neurological: General: No focal deficit present. Mental Status: She is alert and oriented to person, place, and time. ALLERGIES Allergen Reactions Codeine GI Upset Other reaction(s): Nausea Sulfa (Sulfonamide * Rash UNSURE OF REACTION Medication doxycycline (VIBRA-TABS) 100 mg tablet Take 1 tablet by mouth two times a day for 7 days. cephALEXin (KEFLEX) 500 mg capsule Take 1 capsule by mouth four times daily for 7 days. conjugated estrogens (PREMARIN) vaginal cream Use small amount at vaginal opening twice a week levothyroxine (SYNTHROID) 112 mcg tablet Take 1 tablet by mouth once daily. Take on empty stomach. For thyroid losartan (COZAAR) 50 mg tablet Take 1 tablet by mouth once daily. DOSE CHANGE, take one daily metoprolol succinate ER (TOPROL XL) 25 mg 24 hr tablet Take 1 tablet by mouth once daily. triamterene-hydroCHLOROthiazide (MAXZIDE-25) 37.5-25 mg per tablet Take 1 tablet by mouth once daily. apixaban (ELIQUIS) 5 mg tab(s) Take 1 tablet by mouth twice daily. meclizine (ANTIVERT) 25 mg tab Take 1 tablet by mouth three times daily. diphenhydramine HCl (ALLERGY ORAL) Take 1 capsule by mouth once daily. Multivitamin capsule Take 1 capsule by mouth once daily. magnesium oxide 200 mg magnesium tab Take 1 tablet by mouth once daily. cholecalciferol (VITAMIN D3) 50 mcg (2,000 unit) tablet Take 2,000 Units by mouth once daily. coenzyme Q10 (COENZYME Q-10) 100 mg cap capsule Take 100 mg by mouth once daily. ADVAIR HFA 230-21 mcg/actuation inhaler SYMBICORT 160-4.5 mcg/actuation inhaler PAST MEDICAL HISTORY Diagnosis Date Benign neoplasm of colon Cancer (HCC) Colon polyp Cystocele, midline Hemorrhage of gastrointestinal tract, unspecified Hypothyroidism, postsurgical Indeterminate pulmonary nodules 12/18/2012 CT stable 2009 through 10/2012. 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 Symptomatic menopausal or female climacteric states 03/03/2009 Unspecified essential hypertension Vaginal enterocele, congenital or acquired Vertigo Social History Tobacco Use Smoking status: Former Packs/day: 1.00 Years: 30.00 Additional pack years: 0.00 Total pack years: 30.00 Types: Cigarettes Quit date: 09/30/1999 Years since quittin.0 Smokeless tobacco: Never Vaping Use Vaping Use: Never used Substance Use Topics Alcohol use: Yes Comment: Rarely 1 per month Drug use: No Component Latest Ref Rng & Units 06/18/2020 07/18/2021 01/15/2022 Protein, Total 6.3 - 8.0 g/dL 7.3 Albumin 3.9 - 4.9 g/dL 4.2 Calcium 8.5 - 10.2 mg/dL 10.3 (H) 9.8 10.7 (H) Bilirubin, Total 0.2 - 1.3 mg/dL 0.3 Alkaline Phosphatase 34 - 123 U/L 101 AST 13 - 35 U/L 23 ALT 7 - 38 U/L 24 Glucose 74 - 99 mg/dL 70 (L) 92 90 BUN 7 - 21 mg/dL 13 13 15 Creatinine 0.58 - 0.96 mg/dL 0.82 0.69 0.69 Sodium 136 - 144 mmol/L 141 141 140 Potassium 3.7 - 5.1 mmol/L 3.7 4.3 4.1 Chloride 97 - 105 mmol/L 99 102 100 CO2 22 - 30 mmol/L 31 (H) 29 29 Anion Gap 9 - 18 mmol/L 11 10 11 eGFR >=60 mL/min/1.73m 90 eGFR- >60 >60 eGFR-All Other Races . >60 >60 WBC 3.70 - 11.00 k/uL 9.40 8.00 8.71 RBC 3.90 - 5.20 m/uL 5.00 5.03 5.11 Hemoglobin 11.5 - 15.5 g/dL 14.0 13.8 13.9 Hematocrit 36.0 - 46.0 % 44.8 44.4 45.3 MCV 80.0 - 100.0 fL 89.6 88.3 88.6 MCH 26.0 - 34.0 pg 28.0 27.4 27.2 MCHC 30.5 - 36.0 g/dL 31.3 31.1 30.7 RDW-CV 11.5 - 15.0 % 13.5 13.9 14.3 Platelet Count 150 - 400 k/uL 331 311 318 MPV 9.0 - 12.7 fL 11.0 11.3 10.8 Absolute nRBC <0.01 k/uL <0.01 <0.01 <0.01 Thyroglobulin 1.6 - 59.9 ng/mL 7.7 8.3 TG Antibody Screen <14.4 IU/mL <1.0 Hemoglobin A1C 4.3 - 5.6 % 5.8 (H) 5.9 (H) Estimated Average Glucose mg/dL 120 123 TSH 0.270 - 4.200 mIU/L 0.924 1.150 0.103 (L) Free T4 0.9 - 1.7 ng/dL 1.7 1.8 (H) Free T3 2.3 - 4.1 pg/mL 2.9 Thyroglobulin Ab <14.4 IU/mL <1.0 ASSESSMENT/PLAN: 1. Left leg cellulitis - ICD9: 682.6, ICD10: L03.116 Continue current plan of care. Wash leg with soap and water. Elevate when seated. Continue with antibacterial ointment over the healing wound. Cover with gauze or Band-Aid until resolved. Return to clinic this Tuesday or next Tuesday for recheck. Guillermo Alcantara APRN.CNS Medical Decision Making: Problems: Low: Acute, uncomplicated illness or injury Risk: Moderate: Drug management Medical Decision Making Level: 3 - Low documented in this encounterTrihealth03-10-2024 History of Present illness Narrative* Mari Erickson PA-C - 10/09/2023 11:32 AM EDT Images from the original note were not included. This note was created using [employer]. Subjective Marietta Temple is a 78 year old female. HPI Presents with left lower leg swelling and redness over the past day. She states she had cut the front of her leg on a branch a week ago. She noticed today started to get red and painful. She states its painful to walk on it. She denies history of diabetes. She did have chills a day ago but denies any fever. There is been some drainage from the wound. Denies history of blood clots, she is on Eliquis for atrial flutter. She denies vomiting or diarrhea. Here with her . Review of Systems Constitutional: Positive for chills. Negative for fever. Musculoskeletal: Left lower leg redness All other systems reviewed and are negative. PAST MEDICAL HISTORY Diagnosis Date Benign neoplasm of colon Cancer (HCC) Colon polyp Cystocele, midline Hemorrhage of gastrointestinal tract, unspecified Hypothyroidism, postsurgical Indeterminate pulmonary nodules 12/18/2012 CT stable 2009 through 10/2012. 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 Take on empty stomach. For thyroid 90 tablet 3 losartan (COZAAR) 50 mg tablet Take 1 tablet by mouth once daily. DOSE CHANGE, take one daily 90 tablet 3 metoprolol succinate ER (TOPROL XL) 25 mg 24 hr tablet Take 1 tablet by mouth once daily. 90 tablet3 triamterene-hydroCHLOROthiazide (MAXZIDE-25) 37.5-25 mg per tablet Take 1 tablet by mouth once daily. 90 tablet 3 apixaban (ELIQUIS) 5 mg tab(s) Take 1 tablet by mouth twice daily. 180 tablet 3 meclizine (ANTIVERT) 25 mg tab Take 1 tablet by mouth three times daily. 30 tablet 0 diphenhydramine HCl (ALLERGY ORAL) Take 1 capsule by mouth once daily. Multivitamin capsule Take 1 capsule by mouth once daily. magnesium oxide 200 mg magnesium tab Take 1 tablet by mouth once daily. cholecalciferol (VITAMIN D3) 50 mcg (2,000 unit) tablet Take 2,000 Units by mouth once daily. coenzyme Q10 (COENZYME Q-10) 100 mg cap capsule Take 100 mg by mouth once daily. doxycycline (VIBRA-TABS) 100 mg tablet Take 1 tablet by mouth two times a day for 7 days. 14 tablet0 cephALEXin (KEFLEX) 500 mg capsule Take 1 capsule by mouth four times daily for 7 days. 28 capsule 0 No current facility-administered medications for this visit. PAST SURGICAL HISTORY Procedure Laterality Date ABDOMINAL SURGERY HX BREAST SURGERY HX COLONOSCOPY 11/02/2022 repeat in 5 years COLONOSCOPY FLX DX W/COLLJ SPEC WHEN PFRMD 12/14/2002 Colonoscopy COLONOSCOPY FLX DX W/COLLJ SPEC WHEN PFRMD 12/19/2007 Colonoscopy COLONOSCOPY FLX DX W/COLLJ SPEC WHEN PFRMD 01/16/2013 Colonoscopy COLONOSCOPY FLX DX W/COLLJ SPEC WHEN PFRMD 11/08/2017 Colonoscopy CORNEA SCRAPING DIAGNOSTIC SMEAR &/CULTURE 06/03/2004 Corneal Scraping OD CORNEA SCRAPING DIAGNOSTIC SMEAR &/CULTURE 10/29/2013 Left eye DILATION & CURETTAGE DX&/THER NONOBSTETRIC Dilation & curettage EYE SURGERY HX JOINT REPLACEMENT HX PAST SURGICAL HISTORY OF uterine polyps removed PAST SURGICAL HISTORY OF 01/11/2008 breast reduction and tummy- tuck PAST SURGICAL HISTORY OF 08/16/2011 (R) knee replacement- [facility]- Dr. Blood PAST SURGICAL HISTORY OF 10/29/2013 Superficial keratectomy, Left eye. PTK 02/25/2014 WITH [facility] OS FOR SALZMANNS NODULAR DYSTROPHY REMOVAL GALLBLADDER 2014 SKIN BIOPSY HX THYROIDECTOMY TOTAL/COMPLETE 05/25/2005 TOTAL KNEE REPLACEMENT Left 09/2018 Dr Callahan VAGINAL HYSTERECTOMY VAGINAL HYSTERECTOMY UTERUS 250 GM/< 10/2004 Hysterectomy, vaginal + vag repair FAMILY HISTORY Problem Relation Age of Onset Diabetes Mother Heart Mother Emphysema Father Diabetes Sister Cancer Sister Glaucoma Sister Cataract Sister other (Hypothyroidism) Sister Cancer Sister Diabetes Brother Cancer Brother brain Cancer Brother abdominal cancer Heart Brother Heart Brother Diabetes Brother Diabetes Maternal Grandmother Ischemic Heart Disease Son s/p MA Social History Tobacco Use Smoking status: Former Packs/day: 1.00 Years: 30.00 Additional pack years: 0.00 Total pack years: 30.00 Types: Cigarettes Quit date: 09/30/1999 Years since quittin.0 Smokeless tobacco: Never Vaping Use Vaping Use: Never used Substance Use Topics Alcohol use: Yes Comment: Rarely 1 per month Drug use: No Objective BP 114/75 Pulse 98 Temp 36.6 C (97.9 F) Resp 20 Wt 86 kg (189 lb 9.5 oz) SpO2 95% BMI 32.54 kg/m Physical Exam Vitals reviewed. Constitutional: Appearance: Normal appearance. HENT: Head: Normocephalic and atraumatic. Musculoskeletal: Legs: Comments: Patient has an open wound to the anterior mid bejarano of the left lower leg. She has surrounding erythema and swelling below this. No lymphangitic streaking. No other redness or swelling abovethis or above the knee. Pedal pulses are 2+. Some seepage from the open wound. Skin: General: Skin is warm and dry. Neurological: Mental Status: She is alert. Assessment and Plan ASSESSMENT/PLAN: 1. Cellulitis of skin - ICD9: 682.9, ICD10: L03.90 I will cover her with both doxycycline and Keflex. Kidney function reviewed from recent labs and was normal. Recommended a 2-day follow-up with PCP to make sure this is improving. If this is worsening or she has a fever she needs to be seen in the ER. Patient voiced understanding to plan. - ABSCESS AND WOUND CULTURE WITH GRAM STAIN Mari Erickson PA-C documented in this encounterTrihealth07-11-2023 Miscellaneous Notes* Telephone Encounter - Aster Holland LPN - 02/08/2023 3:44 PM EDT Last office visit: 01/20/22 Next appointment scheduled: 03/11/23 Last labs: 01/15/22 * Telephone Encounter - Jyoti Wood - 02/08/2023 2:43 PM EDT Patient has been identified by name and date of : Yes Last office visit in this department: 02/09/2019 RX INSTRUCTIONS: Patient aware RX will be sent to pharmacy. No need to notify patient. Patient phones requesting refills as follows: Requested Prescriptions Pending Prescriptions Disp Refills levothyroxine (SYNTHROID) 112 mcg tablet 90 tablet 3 Sig: Take 1 tablet by mouth once daily. Take on empty stomach. For thyroid losartan (COZAAR) 50 mg tablet 90 tablet 3 Sig: Take 1 tablet by mouth once daily. DOSE CHANGE, take one daily metoprolol succinate ER (TOPROL XL) 25 mg 24 hr tablet 90 tablet 3 Sig: Take 1 tablet by mouth once daily. triamterene-hydroCHLOROthiazide (MAXZIDE-25) 37.5-25 mg per tablet 90 tablet 3 Sig: Take 1 tablet by mouth once daily. apixaban (ELIQUIS) 5 mg tab(s) 180 tablet 3 Sig: Take 1 tablet by mouth twice daily. Please review and advise. Jyoti Wood documented in this encounterTrihealth06-21-2023 Procedure [facility] Miscellaneous Notes* Telephone Encounter - Viola Sparks RN - 01/04/2023 4:42 PM EDT Referral faxed to [facility] per request. Notified patient and instructed to contact their office to schedule appointment. Patient verbalizes understanding. Viola Sparks RN * Telephone Encounter - Mindy Emerson APRN.CNP - 01/04/2023 1:34 PM EDT Consult placed, patient can schedule now. * Telephone Encounter - Viola Sparks RN - 01/04/2023 10:58 AM EDT Patient calls to request referral to [facility] [place] for chronic cough. Patient reports that cough has been present for years. Worsened when got Covid in October of 2020 andhasn't improved. Consult pended with diagnosis of chronic cough. Please review and advise, Viola Sparks RN documented in this encounterTrihealth04-19-2023 Miscellaneous Notes* Telephone Encounter - Beverly Jara RN - 11/17/2022 1:55 PM EDT My Chart message sent to patient. Health maintenance and surgical history updated. Recall letter placed. Beverly Jara RN * Telephone Encounter - Le Mas PA-C - 11/17/2022 12:49 PM EDT Please let patient know polyps returned as adenomatous polyps-benign but precancerous type of polyps. Recommend repeat colonoscopy in 5 years for surveillance. The nodular area which was biopsied returned as hyperplastic tissue, benign. Please update HM and surgical history and generate a recall let ter for 5 years. documented in this encounterTrihealth04-04-2023 Nurse Note* Alissa Cote RN - 11/02/2022 1:19 PM EDT Abd remains slightly firm, but patient states it feels normal to her. Denies any pain. Alissa Cote RN * Alissa Cote RN - 11/02/2022 12:37 PM EDT Pt received in PACU. Pt moderately drowsy, but arouses fairly easily. Appears comfortable. Abd slightly firm but appears non distended. Alissa Cote RN documented in this encounterTrihealth04-04-2023 History and physical note * Juan Jose Toussaint MD - 11/02/2022 11:05 AM EDT UPDATED PROCEDURAL SEDATION HISTORY AND PHYSICAL EXAMINATION SERVICE DATE: 11/02/2022 SERVICE TIME: 11:47 AM PHYSICAL EXAM MUST BE COMPLETED ON ADMISSION PROCEDURE: Procedure Indications: The History and Physical (completed in the past 30 days) has been reviewed and the patient has beenexamined. The contents accurately reflect the patient's condition with the following additions or revisions since the H&P was completed. ASA Class: ASA Class:: Patient with mild systemic disease Examination indicates no changes. AIRWAY: Airway Visualization of Uvula: Yes Mouth opening greater than 2 fingerbreadths: Yes Neck Full Range of Motion: Yes LUNGS: Lungs clear to auscultation CARDIAC: Regular rhythm,Regular rate Provisional Diagnosis/Treatment Plan: personal history of colon polyps - colonoscopy SEDATION GOAL: Moderate This H&P can be found in the attached. SIGNATURE: Juan Jose Toussaint MD PATIENT NAME: Marietta Temple DATE: November 02, 2022 TIME: 11:47 AM Source Note - Juan Jose Toussaint MD - 11/02/2022 11:05 AM EDT Images from the original note were not included. HISTORY AND PHYSICAL Marietta Temple 1945 REFERRING PHYSICIAN: Mindy Emerson APRN.SENIOR RECRUITMENT CONSULTANT CHIEF COMPLAINT: Consult (Colon cancer screening) HPI: The patient is a 77 year old female referred for endoscopy. Marietta notes some irregularity of bowel movements, tries to get fiber in diet to help with this. Patient denies any acute change in bowel habits, weight changes, blood in stools, black tarry stools or abdominal pain. Denies family history of colon issues. The patient notes no upper GI complaints. Marietta has undergone prior endoscopy. Most recent colonoscopy 11/08/[address] Toussaint under conscious sedation with removal of a small hyperplastic polyp. Repeat colonoscopy recommended in 5 years due to previous history of polyps. Patient denies chest pain, shortness of breath or recent hospitalizations. Was evaluated in ED for palpitations and has since been initiated on eliquis, denies further issues with palpitation.s PAST MEDICAL HISTORY PAST MEDICAL HISTORY Diagnosis Date Benign neoplasm of colon Colon polyp Cystocele, midline Hemorrhage of gastrointestinal tract, unspecified Hypothyroidism, postsurgical Indeterminate pulmonary nodules 12/18/2012 CT stable 2009 through 10/2012. 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 Symptomatic menopausal or female climacteric states 03/03/2009 Unspecified essential hypertension Vaginal enterocele, congenital or acquired Vertigo PAST SURGICAL HISTORY PAST SURGICAL HISTORY Procedure Laterality Date COLONOSCOPY FLX DX W/COLLJ SPEC WHEN PFRMD 12/14/2002 Colonoscopy COLONOSCOPY FLX DX W/COLLJ SPEC WHEN PFRMD 12/19/2007 Colonoscopy COLONOSCOPY FLX DX W/COLLJ SPEC WHEN PFRMD 01/16/2013 Colonoscopy COLONOSCOPY FLX DX W/COLLJ SPEC WHEN PFRMD 11/08/2017 Colonoscopy CORNEA SCRAPING DIAGNOSTIC SMEAR &/CULTURE 06/03/2004 Corneal Scraping OD CORNEA SCRAPING DIAGNOSTIC SMEAR &/CULTURE 10/29/2013 Left eye DILATION & CURETTAGE DX&/THER NONOBSTETRIC Dilation & curettage PAST SURGICAL HISTORY OF uterine polyps removed PAST SURGICAL HISTORY OF 01/11/2008 breast reduction and tummy- tuck PAST SURGICAL HISTORY OF 08/16/2011 (R) knee replacement- [facility]- Dr. Blood PAST SURGICAL HISTORY OF 10/29/2013 Superficial keratectomy, Left eye. PTK 02/25/2014 WITH [facility] OS FOR SALZMANNS NODULAR DYSTROPHY REMOVAL GALLBLADDER 2015 THYROIDECTOMY TOTAL/COMPLETE 05/25/2005 TOTAL KNEE REPLACEMENT Left 09/2018 Dr Callahan VAGINAL HYSTERECTOMY UTERUS 250 GM/< 10/2004 Hysterectomy, vaginal + vag repair CURRENT MEDICATIONS Current Outpatient Medications Medication Sig meclizine (ANTIVERT) 25 mg tab Take 1 tablet by mouth three times daily. levothyroxine (SYNTHROID) 112 mcg tablet Take 1 tablet by mouth once daily. Take on empty stomach. For thyroid triamterene-hydroCHLOROthiazide (MAXZIDE-25) 37.5-25 mg per tablet Take 1 tablet by mouth once daily. losartan (COZAAR) 50 mg tablet Take 1 tablet by mouth once daily. DOSE CHANGE, take one daily metoprolol succinate ER (TOPROL XL) 25 mg 24 hr tablet Take 1 tablet by mouth once daily. apixaban (ELIQUIS) 5 mg tab(s) Take 1 tablet by mouth twice daily. diphenhydramine HCl (ALLERGY ORAL) Take 1 capsule by mouth once daily. conjugated estrogens (PREMARIN) vaginal cream Use small amount at vaginal opening twice a week Multivitamin capsule Take 1 capsule by mouth once daily. magnesium oxide 200 mg magnesium tab Take 1 tablet by mouth once daily. cholecalciferol (VITAMIN D3) 50 mcg (2,000 unit) tablet Take 2,000 Units by mouth once daily. coenzyme Q10 (COENZYME Q-10) 100 mg cap capsule Take 100 mg by mouth once daily. No current facility-administered medications for this visit. ALLERGIES: Codeine and Sulfa (Sulfonamide Antibiotics) PERSONAL HISTORY: SOCIAL HISTORY Social History Tobacco Use Smoking status: Former Packs/day: 1.00 Years: 30.00 Pack years: 30.00 Types: Cigarettes Quit date: 09/30/1999 Years since quittin.9 Smokeless tobacco: Never Vaping Use Vaping Use: Never used Substance Use Topics Alcohol use: Yes Comment: Rarely 1 per month Drug use: No FAMILY HISTORY: FAMILY HISTORY FAMILY HISTORY Problem Relation Age of Onset Diabetes Mother Heart Mother Emphysema Father Diabetes Sister Cancer Sister Glaucoma Sister Cataract Sister other (Hypothyroidism) Sister Cancer Sister Diabetes Brother Cancer Brother brain Cancer Brother abdominal cancer Heart Brother Heart Brother Diabetes Brother Diabetes Maternal Grandmother Ischemic Heart Disease Son s/p MA REVIEW OF SYMPTOMS: The review of systems data was entered by the nurse and reviewed by mt Nursing Notes: Stacy Landrum LPN 09/15/2022 8:50 AM Signed REVIEW OF SYSTEMS: General: The patient denies fatigue, denies weight loss, denies weight gain, denies feeling hot, and denies feelings of cold. Eyes: The patient denies glaucoma, denies eye injury/surgery, wears glasses or contacts. Ear/Nose/Throat: The patient denies allergies, denies hayfever, denies ear infections, and denies bloody noses. Cardiovascular: The patient denies chest pain, denies heart disease, NOTES high blood pressure,denies cardiac stent, denies prior heart attack, NOTES irregular heart beat, denies high cholesterol, denies poor circulation, denies heart failure, other cardiac issues, denies claudication, denies cold feet, denies peripheral arterial stent. Respiratory: The patient denies tuberculosis, denies pneumonia, NOTES frequent cough, denies pulmonary embolism, NOTES shortness of breath, and denies coughing up blood. Gastrointestinal: The patient denies difficulty swallowing, denies acid reflux, denies ulcers, denies vomiting, denies jaundice/hepatitis, NOTES gallbladder problems, denies black or tarry stools, NOTES hemorrhoids, denies bleeding from rectum, denies diverticulitis, denies constipation, denies diarrhea, denies loss of stool control, and denies hernias. Kidney/Bladder: The patient denies kidney stones, denies urine infections, and denies bloody urine. Skin: The patient denies a history of skin cancer, denies bleeding/changing moles, and denies a history of skin rash. Neurologic: The patient denies a history of epilepsy/convulsions, denies headaches, denies head/spinal injuries, and denies stroke/TIA. Psychiatric: The patient denies psychiatric medications, denies depression, and denies voices, denies substance abuse. Endocrine: The patient NOTES thyroid disorders, denies diabetes, and denies hormonal problems. Hematologic: The patient NOTES a history of bruising, denies bleeding, and denies anemia, denies blood clots. Infections: The patient NOTES a history of measles and mumps, denies rheumatic fever, and denies sexually transmitted diseases. Musculoskeletal: The patient denies back pain/injury, denies back problems, NOTES sciatica, denies knee/foot trouble, denies arthritis, or denies gout. When was patient's last Mammogram screening? N/A Last Colonoscopy: 2018 Stacy Landrum LPN I have confirmed and edited as necessary, the PFSH and ROS obtained by others. Le Mas PA-C PHYSICAL EXAMINATION: General: The patient is 77 year old female, well nourished, well hydrated in no acute distress. Thepatient is oriented to time, place, and person. VITALS: Blood pressure 124/86, pulse 91, temperature 36.2 C (97.2 F), height 162.6 cm (5' 4), weight 83.2 kg (183 lb 6.4 oz), SpO2 96 %. Body mass index is 31.48 kg/m . HEENT: Normal cephalic, ataumatic, pupils are equally round, sclera are anicteric, mucous membranesare moist, oropharynx is clear. Neck has no masses, asymmetry or lymphadenopathy. Respiratory: Clear to auscultation and percussion. Normal respiratory excursion and pattern. Cardiac: Examination is regular rate and rhythm. Normal S1/S2 Abdominal exam: Soft, nontender, with no palpable masses. No hepatosplenomegaly. No palpable hernias. Extremities: no clubbing, cyanosis or edema. No adenopathy. LABORATORY VALUES: As Noted RADIOLOGIC STUDIES: As Noted Assessment IMPRESSION: encounter for surveillance colonoscopy due to personal history of colon polyps PLAN: I have reviewed my findings with the surgeon. Will plan for lower endoscopy. We discussed therisks and benefits of the planned endoscopy. I have informed the patient that complications can occur including failure to complete the endoscopy and perforation. The patient had the opportunity to ask questions concerning the planned endoscopy. My staff has also explained the procedure to the patient in understandable terms and has given the patient printed material concerning the procedure. Thepatient freely consents to surgery. The patient was offered a surgery/procedure at a [facility] facility. I have counseled the patient regarding the risk of exposure to and/or potential harm posed by the COVID-19 virus with having a surgery/procedure at this time versus the risk of delaying the surgery/procedure. It is not possible to know either the risk of delaying the surgery or procedure or chance of getting an infection with perfect accuracy, but a joint decision was made between the patient and myself to proceed at this time with endoscopy. I plan to use Miralax bowel preparation Patient to remain on anticoagulation for endoscopy Diagnoses: (Z86.010) History of colonic polyps (primary encounter diagnosis) (Z12.11) Colon cancer screening Consultation requested by Mindy Emerson CNP for an opinion regarding screening colonoscopy. My final recommendations will be communicated back to the requesting physician by way of shared Medical record or letter to requesting physician via US mail. Le Mas PA-C * Juan Jose Toussaint MD - 11/02/2022 11:05 AM EDT Images from the original note were not included. HISTORY AND PHYSICAL Marietta Bartlettd 1945 REFERRING PHYSICIAN: Mindy Emerson APRN.SENIOR RECRUITMENT CONSULTANT CHIEF COMPLAINT: Consult (Colon cancer screening) HPI: The patient is a 77 year old female referred for endoscopy. Marietta notes some irregularity of bowel movements, tries to get fiber in diet to help with this. Patient denies any acute change in bowel habits, weight changes, blood in stools, black tarry stools or abdominal pain. Denies family history of colon issues. The patient notes no upper GI complaints. Marietta has undergone prior endoscopy. Most recent colonoscopy 11/08/[address] Toussaint under conscious sedation with removal of a small hyperplastic polyp. Repeat colonoscopy recommended in 5 years due to previous history of polyps. Patient denies chest pain, shortness of breath or recent hospitalizations. Was evaluated in ED for palpitations and has since been initiated on eliquis, denies further issues with palpitation.s PAST MEDICAL HISTORY PAST MEDICAL HISTORY Diagnosis Date Benign neoplasm of colon Colon polyp Cystocele, midline Hemorrhage of gastrointestinal tract, unspecified Hypothyroidism, postsurgical Indeterminate pulmonary nodules 12/18/2012 CT stable 2009 through 10/2012. 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 Symptomatic menopausal or female climacteric states 03/03/2009 Unspecified essential hypertension Vaginal enterocele, congenital or acquired Vertigo PAST SURGICAL HISTORY PAST SURGICAL HISTORY Procedure Laterality Date COLONOSCOPY FLX DX W/COLLJ SPEC WHEN PFRMD 12/14/2002 Colonoscopy COLONOSCOPY FLX DX W/COLLJ SPEC WHEN PFRMD 12/19/2007 Colonoscopy COLONOSCOPY FLX DX W/COLLJ SPEC WHEN PFRMD 01/16/2013 Colonoscopy COLONOSCOPY FLX DX W/COLLJ SPEC WHEN PFRMD 11/08/2017 Colonoscopy CORNEA SCRAPING DIAGNOSTIC SMEAR &/CULTURE 06/03/2004 Corneal Scraping OD CORNEA SCRAPING DIAGNOSTIC SMEAR &/CULTURE 10/29/2013 Left eye DILATION & CURETTAGE DX&/THER NONOBSTETRIC Dilation & curettage PAST SURGICAL HISTORY OF uterine polyps removed PAST SURGICAL HISTORY OF 01/11/2008 breast reduction and tummy- tuck PAST SURGICAL HISTORY OF 08/16/2011 (R) knee replacement- [facility]- Dr. Blood PAST SURGICAL HISTORY OF 10/29/2013 Superficial keratectomy, Left eye. PTK 02/25/2014 WITH [facility] OS FOR SALZMANNS NODULAR DYSTROPHY REMOVAL GALLBLADDER 2015 THYROIDECTOMY TOTAL/COMPLETE 05/25/2005 TOTAL KNEE REPLACEMENT Left 09/2018 Dr Callahan VAGINAL HYSTERECTOMY UTERUS 250 GM/< 10/2004 Hysterectomy, vaginal + vag repair CURRENT MEDICATIONS Current Outpatient Medications Medication Sig meclizine (ANTIVERT) 25 mg tab Take 1 tablet by mouth three times daily. levothyroxine (SYNTHROID) 112 mcg tablet Take 1 tablet by mouth once daily. Take on empty stomach. For thyroid triamterene-hydroCHLOROthiazide (MAXZIDE-25) 37.5-25 mg per tablet Take 1 tablet by mouth once daily. losartan (COZAAR) 50 mg tablet Take 1 tablet by mouth once daily. DOSE CHANGE, take one daily metoprolol succinate ER (TOPROL XL) 25 mg 24 hr tablet Take 1 tablet by mouth once daily. apixaban (ELIQUIS) 5 mg tab(s) Take 1 tablet by mouth twice daily. diphenhydramine HCl (ALLERGY ORAL) Take 1 capsule by mouth once daily. conjugated estrogens (PREMARIN) vaginal cream Use small amount at vaginal opening twice a week Multivitamin capsule Take 1 capsule by mouth once daily. magnesium oxide 200 mg magnesium tab Take 1 tablet by mouth once daily. cholecalciferol (VITAMIN D3) 50 mcg (2,000 unit) tablet Take 2,000 Units by mouth once daily. coenzyme Q10 (COENZYME Q-10) 100 mg cap capsule Take 100 mg by mouth once daily. No current facility-administered medications for this visit. ALLERGIES: Codeine and Sulfa (Sulfonamide Antibiotics) PERSONAL HISTORY: SOCIAL HISTORY Social History Tobacco Use Smoking status: Former Packs/day: 1.00 Years: 30.00 Pack years: 30.00 Types: Cigarettes Quit date: 09/30/1999 Years since quittin.9 Smokeless tobacco: Never Vaping Use Vaping Use: Never used Substance Use Topics Alcohol use: Yes Comment: Rarely 1 per month Drug use: No FAMILY HISTORY: FAMILY HISTORY FAMILY HISTORY Problem Relation Age of Onset Diabetes Mother Heart Mother Emphysema Father Diabetes Sister Cancer Sister Glaucoma Sister Cataract Sister other (Hypothyroidism) Sister Cancer Sister Diabetes Brother Cancer Brother brain Cancer Brother abdominal cancer Heart Brother Heart Brother Diabetes Brother Diabetes Maternal Grandmother Ischemic Heart Disease Son s/p MA REVIEW OF SYMPTOMS: The review of systems data was entered by the nurse and reviewed by mt Nursing Notes: Stacy Landrum LPN 09/15/2022 8:50 AM Signed REVIEW OF SYSTEMS: General: The patient denies fatigue, denies weight loss, denies weight gain, denies feeling hot, and denies feelings of cold. Eyes: The patient denies glaucoma, denies eye injury/surgery, wears glasses or contacts. Ear/Nose/Throat: The patient denies allergies, denies hayfever, denies ear infections, and denies bloody noses. Cardiovascular: The patient denies chest pain, denies heart disease, NOTES high blood pressure,denies cardiac stent, denies prior heart attack, NOTES irregular heart beat, denies high cholesterol, denies poor circulation, denies heart failure, other cardiac issues, denies claudication, denies cold feet, denies peripheral arterial stent. Respiratory: The patient denies tuberculosis, denies pneumonia, NOTES frequent cough, denies pulmonary embolism, NOTES shortness of breath, and denies coughing up blood. Gastrointestinal: The patient denies difficulty swallowing, denies acid reflux, denies ulcers, denies vomiting, denies jaundice/hepatitis, NOTES gallbladder problems, denies black or tarry stools, NOTES hemorrhoids, denies bleeding from rectum, denies diverticulitis, denies constipation, denies diarrhea, denies loss of stool control, and denies hernias. Kidney/Bladder: The patient denies kidney stones, denies urine infections, and denies bloody urine. Skin: The patient denies a history of skin cancer, denies bleeding/changing moles, and denies a history of skin rash. Neurologic: The patient denies a history of epilepsy/convulsions, denies headaches, denies head/spinal injuries, and denies stroke/TIA. Psychiatric: The patient denies psychiatric medications, denies depression, and denies voices, denies substance abuse. Endocrine: The patient NOTES thyroid disorders, denies diabetes, and denies hormonal problems. Hematologic: The patient NOTES a history of bruising, denies bleeding, and denies anemia, denies blood clots. Infections: The patient NOTES a history of measles and mumps, denies rheumatic fever, and denies sexually transmitted diseases. Musculoskeletal: The patient denies back pain/injury, denies back problems, NOTES sciatica, denies knee/foot trouble, denies arthritis, or denies gout. When was patient's last Mammogram screening? N/A Last Colonoscopy: 2018 Stacy Landrum LPN I have confirmed and edited as necessary, the PFSH and ROS obtained by others. Le Mas PA-C PHYSICAL EXAMINATION: General: The patient is 77 year old female, well nourished, well hydrated in no acute distress. Thepatient is oriented to time, place, and person. VITALS: Blood pressure 124/86, pulse 91, temperature 36.2 C (97.2 F), height 162.6 cm (5' 4), weight 83.2 kg (183 lb 6.4 oz), SpO2 96 %. Body mass index is 31.48 kg/m . HEENT: Normal cephalic, ataumatic, pupils are equally round, sclera are anicteric, mucous membranesare moist, oropharynx is clear. Neck has no masses, asymmetry or lymphadenopathy. Respiratory: Clear to auscultation and percussion. Normal respiratory excursion and pattern. Cardiac: Examination is regular rate and rhythm. Normal S1/S2 Abdominal exam: Soft, nontender, with no palpable masses. No hepatosplenomegaly. No palpable hernias. Extremities: no clubbing, cyanosis or edema. No adenopathy. LABORATORY VALUES: As Noted RADIOLOGIC STUDIES: As Noted Assessment IMPRESSION: encounter for surveillance colonoscopy due to personal history of colon polyps PLAN: I have reviewed my findings with the surgeon. Will plan for lower endoscopy. We discussed therisks and benefits of the planned endoscopy. I have informed the patient that complications can occur including failure to complete the endoscopy and perforation. The patient had the opportunity to ask questions concerning the planned endoscopy. My staff has also explained the procedure to the patient in understandable terms and has given the patient printed material concerning the procedure. Thepatient freely consents to surgery. The patient was offered a surgery/procedure at a [facility] facility. I have counseled the patient regarding the risk of exposure to and/or potential harm posed by the COVID-19 virus with having a surgery/procedure at this time versus the risk of delaying the surgery/procedure. It is not possible to know either the risk of delaying the surgery or procedure or chance of getting an infection with perfect accuracy, but a joint decision was made between the patient and myself to proceed at this time with endoscopy. I plan to use Miralax bowel preparation Patient to remain on anticoagulation for endoscopy Diagnoses: (Z86.010) History of colonic polyps (primary encounter diagnosis) (Z12.11) Colon cancer screening Consultation requested by Mindy Emerson CNP for an opinion regarding screening colonoscopy. My final recommendations will be communicated back to the requesting physician by way of shared Medical record or letter to requesting physician via US mail. Le Mas PA-C documented in this encounterTrihealth04-04-2023 History of Present illness Narrative* Su Pabon MA - 11/02/2022 10:35 AM EDT POPULATION HEALTH NAVIGATION OUTREACH Action/FYI SPOKE with Marietta. pt declined D32.9 - Meningioma ([facility]) - [id number] Last Billed 02/20/2021 I48.92 - Atrial flutter by electrocardiogram ([facility]) - [id number] Last Billed 01/20/2022 ANNUAL MEDICARE WELLNESS BP CONTROLLED (<130/80) Never done Patient Identified by Name and : YES, via phone Outreach Outcome/Action Spoke to patient / parent / legal guardian: Patient declined Did you use a PCP flex slot to schedule this appointment? N/A Reason for Outreach Care Gap or Scheduling/Wellness visits Payer: Payor: MEDICARE / Plan: MEDICARE A AND B / Product Type: Medicare / Care Gap Reviewed:: Annual Wellness visit Controlling Blood Pressure Reminder: Reminder note to check Health Maintenance for items below Health Maintenance items due: COVID-19 VACCINE(1) Never done BP CONTROLLED (<130/80) Never done DTAP,TDAP,TD(1 - Tdap) Never done SHINGRIX VACCINE(1 of 2) Never done ADVANCE DIRECTIVE DISCUSSION due on 08/01/2022 DEPRESSION ASSESSMENT Never done Navigation Signature: Su Pabon MA November 02, 2022 10:35 AM documented in this encounterTrihealth03-28-2023 Miscellaneous Notes* Telephone Encounter - Azalea Read LPN - 10/26/2022 8:57 AM EDT Pt notified of results. Azalea Read LPN * Telephone Encounter - TYLER Rivas - 10/26/2022 8:42 AM EDT Negative for COVID documented in this encounterTrihealth03-27-2023 History of Present illness Narrative* Nora Lopez RT(R) - 10/25/2022 12:10 PM EDT Radiology Service Progress Note PATIENT NAME: Marietta Temple DATE OF SERVICE: October 25, 2022 TIME: 12:04 PM PATIENT IDENTITY VERIFICATION COMPLETED USING TWO (2) IDENTIFIERS: Name and Date of confirmedby patient verbally. FALL SCREENING: Has the patient had 2 falls in the last year or 1 fall with injury or currently using an Ambulatory Assistive Device (Walker, Cane, Wheelchair, Crutches, etc.)? No PATIENT GENDER DATA: Female. status: : No status: NO. PATIENT RELEVANT IMPLANT DATA REVIEWED: Yes RADIOLOGY DEPARTMENT: General X-ray: Exam(s) Completed: Chest X-Ray PERIPHERAL IV DATA: Not applicable SIGNED BY: RT Lurdes(R) October 25, 2022 12:04 PM documented in this encounterTrihealth03-27-2023 History of Present illness Narrative* Raul Bonilla MD - 10/25/2022 11:47 AM EDT Patient presents with: Cough: Chest congestion x 1 week HPI: Chronic cough, worsened the last few days. Positive symptoms: cough, chest thomas with cough, Sore throat, Rhinorrhea, Post nasal drainage, Shortness of breath, Wheezing, Negative symptoms: Chest pain, Earache, Sinus pressure, Fever, Chills, Headache, Nausea, Vomiting, Diarrhea, OTC: Heatherex Had COVID illness 10/2020 and has had more difficulty with coughing since. Denies Hx of pneumonia, Asthma, or COPD. Quit smoking in 1999. PAST MEDICAL HISTORY Diagnosis Date Benign neoplasm of colon Colon polyp Cystocele, midline Hemorrhage of gastrointestinal tract, unspecified Hypothyroidism, postsurgical Indeterminate pulmonary nodules 12/18/2012 CT stable 2009 through 10/2012. 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 levothyroxine (SYNTHROID) 112 mcg tablet Take 1 tablet by mouth once daily. Take on empty stomach. For thyroid triamterene-hydroCHLOROthiazide (MAXZIDE-25) 37.5-25 mg per tablet Take 1 tablet by mouth once daily. losartan (COZAAR) 50 mg tablet Take 1 tablet by mouth once daily. DOSE CHANGE, take one daily metoprolol succinate ER (TOPROL XL) 25 mg 24 hr tablet Take 1 tablet by mouth once daily. apixaban (ELIQUIS) 5 mg tab(s) Take 1 tablet by mouth twice daily. diphenhydramine HCl (ALLERGY ORAL) Take 1 capsule by mouth once daily. conjugated estrogens (PREMARIN) vaginal cream Use small amount at vaginal opening twice a week Multivitamin capsule Take 1 capsule by mouth once daily. magnesium oxide 200 mg magnesium tab Take 1 tablet by mouth once daily. cholecalciferol (VITAMIN D3) 50 mcg (2,000 unit) tablet Take 2,000 Units by mouth once daily. coenzyme Q10 (COENZYME Q-10) 100 mg cap capsule Take 100 mg by mouth once daily. No current facility-administered medications for this visit. ALLERGIES: ALLERGIES Allergen Reactions Codeine GI Upset Sulfa (Sulfonamide * Rash UNSURE OF REACTION VITALS: BP 172/90 Pulse 64 Temp 36.2 C (97.1 F) Resp 21 Wt 82.7 kg (182 lb 6.4 oz) SpO2 95% BMI31.31 kg/m PHYSICAL EXAM: GEN: mildly ill appearing, alert, pleasant HEENT: PERRL, EOMI, conjunctiva clear Ears: canals clear. TMs without erythema, bulge, or effusion Sinuses: non-tender frontal sinus, non-tender maxillary sinuses Throat: moist mucous membranes, mild erythema, no exudate Neck: supple, no thyromegaly, no lymphadenopathy HEART: regular rate and rhythm, no murmurs LUNGS: wheezing bilateral with auscultation, fine crackles right lung; stridor/wheeze with inspiration. Raspy cough ASSESSMENT/PLAN: 1. Acute cough - ICD9: 786.2, ICD10: R05.1 (primary diagnosis) 2. Wheezing - ICD9: 786.07, ICD10: R06.2 - XR CHEST 2V FRONTAL/LAT - no obvious pneumonia. Radiology interpretation is pending. The patient will be notified if there is a significant finding in the report not discussed at the time of the visit. - suspect viral illness, differential includes COVID-19. - Discussed supportive care treatment with home isolation (cannot pin point onset of symptoms), rest, cold medicine, and analgesia. - Red flags to seek further treatment include chest pain, shortness of breath, and lethargy; in theER if severe. - 2019 CORONAVIRUS - PREDNISONE 10 MG TABLET taper. Denies side effects with use. - BENZONATATE 100 MG CAPSULE Raul Bonilla MD documented in this encounterTrihealth02-15-2023 History of Present illness Narrative* Le Mas PA-C - 09/15/2022 8:51 AM EST HISTORY AND PHYSICAL Marietta Temple 1945 REFERRING PHYSICIAN: Mindy Emerson APRN.CNP CHIEF COMPLAINT: Consult (Colon cancer screening) HPI: The patient is a 77 year old female referred for endoscopy. Marietta notes some irregularity of bowel movements, tries to get fiber in diet to help with this. Patient denies any acute change in bowel habits, weight changes, blood in stools, black tarry stools or abdominal pain. Denies family history of colon issues. The patient notes no upper GI complaints. Marietta has undergone prior endoscopy. Most recent colonoscopy 11/08/[address] Toussaint under conscious sedation with removal of a small hyperplastic polyp. Repeat colonoscopy recommended in 5 years due to previous history of polyps. Patient denies chest pain, shortness of breath or recent hospitalizations. Was evaluated in ED for palpitations and has since been initiated on eliquis, denies further issues with palpitation.s PAST MEDICAL HISTORY Diagnosis Date Benign neoplasm of colon Colon polyp Cystocele, midline Hemorrhage of gastrointestinal tract, unspecified Hypothyroidism, postsurgical Indeterminate pulmonary nodules 12/18/2012 CT stable 2009 through 10/2012. 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 Symptomatic menopausal or female climacteric states 03/03/2009 Unspecified essential hypertension Vaginal enterocele, congenital or acquired Vertigo PAST SURGICAL HISTORY Procedure Laterality Date COLONOSCOPY FLX DX W/COLLJ SPEC WHEN PFRMD 12/14/2002 Colonoscopy COLONOSCOPY FLX DX W/COLLJ SPEC WHEN PFRMD 12/19/2007 Colonoscopy COLONOSCOPY FLX DX W/COLLJ SPEC WHEN PFRMD 01/16/2013 Colonoscopy COLONOSCOPY FLX DX W/COLLJ SPEC WHEN PFRMD 11/08/2017 Colonoscopy CORNEA SCRAPING DIAGNOSTIC SMEAR &/CULTURE 06/03/2004 Corneal Scraping OD CORNEA SCRAPING DIAGNOSTIC SMEAR &/CULTURE 10/29/2013 Left eye DILATION & CURETTAGE DX&/THER NONOBSTETRIC Dilation & curettage PAST SURGICAL HISTORY OF uterine polyps removed PAST SURGICAL HISTORY OF 01/11/2008 breast reduction and tummy- tuck PAST SURGICAL HISTORY OF 08/16/2011 (R) knee replacement- [facility]- Dr. Blood PAST SURGICAL HISTORY OF 10/29/2013 Superficial keratectomy, Left eye. PTK 02/25/2014 WITH [facility] OS FOR SALZMANNS NODULAR DYSTROPHY REMOVAL GALLBLADDER 2015 THYROIDECTOMY TOTAL/COMPLETE 05/25/2005 TOTAL KNEE REPLACEMENT Left 09/2018 Dr Callahan VAGINAL HYSTERECTOMY UTERUS 250 GM/< 10/2004 Hysterectomy, vaginal + vag repair Current Outpatient Medications Medication Sig meclizine (ANTIVERT) 25 mg tab Take 1 tablet by mouth three times daily. levothyroxine (SYNTHROID) 112 mcg tablet Take 1 tablet by mouth once daily. Take on empty stomach. For thyroid triamterene-hydroCHLOROthiazide (MAXZIDE-25) 37.5-25 mg per tablet Take 1 tablet by mouth once daily. losartan (COZAAR) 50 mg tablet Take 1 tablet by mouth once daily. DOSE CHANGE, take one daily metoprolol succinate ER (TOPROL XL) 25 mg 24 hr tablet Take 1 tablet by mouth once daily. apixaban (ELIQUIS) 5 mg tab(s) Take 1 tablet by mouth twice daily. diphenhydramine HCl (ALLERGY ORAL) Take 1 capsule by mouth once daily. conjugated estrogens (PREMARIN) vaginal cream Use small amount at vaginal opening twice a week Multivitamin capsule Take 1 capsule by mouth once daily. magnesium oxide 200 mg magnesium tab Take 1 tablet by mouth once daily. cholecalciferol (VITAMIN D3) 50 mcg (2,000 unit) tablet Take 2,000 Units by mouth once daily. coenzyme Q10 (COENZYME Q-10) 100 mg cap capsule Take 100 mg by mouth once daily. No current facility-administered medications for this visit. ALLERGIES: Codeine and Sulfa (Sulfonamide Antibiotics) PERSONAL HISTORY: Social History Tobacco Use Smoking status: Former Packs/day: 1.00 Years: 30.00 Pack years: 30.00 Types: Cigarettes Quit date: 09/30/1999 Years since quittin.9 Smokeless tobacco: Never Vaping Use Vaping Use: Never used Substance Use Topics Alcohol use: Yes Comment: Rarely 1 per month Drug use: No FAMILY HISTORY: FAMILY HISTORY Problem Relation Age of Onset Diabetes Mother Heart Mother Emphysema Father Diabetes Sister Cancer Sister Glaucoma Sister Cataract Sister other (Hypothyroidism) Sister Cancer Sister Diabetes Brother Cancer Brother brain Cancer Brother abdominal cancer Heart Brother Heart Brother Diabetes Brother Diabetes Maternal Grandmother Ischemic Heart Disease Son s/p MA REVIEW OF SYMPTOMS: The review of systems data was entered by the nurse and reviewed by me Nursing Notes: Stacy Landrum LPN 09/15/2022 8:50 AM Signed REVIEW OF SYSTEMS: General: The patient denies fatigue, denies weight loss, denies weight gain, denies feeling hot, and denies feelings of cold. Eyes: The patient denies glaucoma, denies eye injury/surgery, wears glasses or contacts. Ear/Nose/Throat: The patient denies allergies, denies hayfever, denies ear infections, and denies bloody noses. Cardiovascular: The patient denies chest pain, denies heart disease, NOTES high blood pressure,denies cardiac stent, denies prior heart attack, NOTES irregular heart beat, denies high cholesterol, denies poor circulation, denies heart failure, other cardiac issues, denies claudication, denies cold feet, denies peripheral arterial stent. Respiratory: The patient denies tuberculosis, denies pneumonia, NOTES frequent cough, denies pulmonary embolism, NOTES shortness of breath, and denies coughing up blood. Gastrointestinal: The patient denies difficulty swallowing, denies acid reflux, denies ulcers, denies vomiting, denies jaundice/hepatitis, NOTES gallbladder problems, denies black or tarry stools, NOTES hemorrhoids, denies bleeding from rectum, denies diverticulitis, denies constipation, denies diarrhea, denies loss of stool control, and denies hernias. Kidney/Bladder: The patient denies kidney stones, denies urine infections, and denies bloody urine. Skin: The patient denies a history of skin cancer, denies bleeding/changing moles, and denies a history of skin rash. Neurologic: The patient denies a history of epilepsy/convulsions, denies headaches, denies head/spinal injuries, and denies stroke/TIA. Psychiatric: The patient denies psychiatric medications, denies depression, and denies voices, denies substance abuse. Endocrine: The patient NOTES thyroid disorders, denies diabetes, and denies hormonal problems. Hematologic: The patient NOTES a history of bruising, denies bleeding, and denies anemia, denies blood clots. Infections: The patient NOTES a history of measles and mumps, denies rheumatic fever, and denies sexually transmitted diseases. Musculoskeletal: The patient denies back pain/injury, denies back problems, NOTES sciatica, denies knee/foot trouble, denies arthritis, or denies gout. When was patient's last Mammogram screening? N/A Last Colonoscopy: 2018 Stacy Landrum LPN I have confirmed and edited as necessary, the PFSH and ROS obtained by others. Le Mas PA-C PHYSICAL EXAMINATION: General: The patient is 77 year old female, well nourished, well hydrated in no acute distress. Thepatient is oriented to time, place, and person. VITALS: Blood pressure 124/86, pulse 91, temperature 36.2 C (97.2 F), height 162.6 cm (5' 4), weight 83.2 kg (183 lb 6.4 oz), SpO2 96 %. Body mass index is 31.48 kg/m . HEENT: Normal cephalic, ataumatic, pupils are equally round, sclera are anicteric, mucous membranesare moist, oropharynx is clear. Neck has no masses, asymmetry or lymphadenopathy. Respiratory: Clear to auscultation and percussion. Normal respiratory excursion and pattern. Cardiac: Examination is regular rate and rhythm. Normal S1/S2 Abdominal exam: Soft, nontender, with no palpable masses. No hepatosplenomegaly. No palpable hernias. Extremities: no clubbing, cyanosis or edema. No adenopathy. LABORATORY VALUES: As Noted RADIOLOGIC STUDIES: As Noted Assessment IMPRESSION: encounter for surveillance colonoscopy due to personal history of colon polyps PLAN: I have reviewed my findings with the surgeon. Will plan for lower endoscopy. We discussed therisks and benefits of the planned endoscopy. I have informed the patient that complications can occur including failure to complete the endoscopy and perforation. The patient had the opportunity to ask questions concerning the planned endoscopy. My staff has also explained the procedure to the patient in understandable terms and has given the patient printed material concerning the procedure. Thepatient freely consents to surgery. The patient was offered a surgery/procedure at a [facility] facility. I have counseled the patient regarding the risk of exposure to and/or potential harm posed by the COVID-19 virus with having a surgery/procedure at this time versus the risk of delaying the surgery/procedure. It is not possible to know either the risk of delaying the surgery or procedure or chance of getting an infection with perfect accuracy, but a joint decision was made between the patient and myself to proceed at this time with endoscopy. I plan to use Miralax bowel preparation Patient to remain on anticoagulation for endoscopy Diagnoses: (Z86.010) History of colonic polyps (primary encounter diagnosis) (Z12.11) Colon cancer screening Consultation requested by Mindy Emerson CNP for an opinion regarding screening colonoscopy. My final recommendations will be communicated back to the requesting physician by way of shared Medical record or letter to requesting physician via US mail. Le Mas PA-C documented in this encounterTrihealth02-15-2023 Nurse Note* Stacy Landrum LPN - 09/15/2022 8:43 AM EST REVIEW OF SYSTEMS: General: The patient denies fatigue, denies weight loss, denies weight gain, denies feeling hot, and denies feelings of cold. Eyes: The patient denies glaucoma, denies eye injury/surgery, wears glasses or contacts. Ear/Nose/Throat: The patient denies allergies, denies hayfever, denies ear infections, and denies bloody noses. Cardiovascular: The patient denies chest pain, denies heart disease, NOTES high blood pressure,denies cardiac stent, denies prior heart attack, NOTES irregular heart beat, denies high cholesterol, denies poor circulation, denies heart failure, other cardiac issues, denies claudication, denies cold feet, denies peripheral arterial stent. Respiratory: The patient denies tuberculosis, denies pneumonia, NOTES frequent cough, denies pulmonary embolism, NOTES shortness of breath, and denies coughing up blood. Gastrointestinal: The patient denies difficulty swallowing, denies acid reflux, denies ulcers, denies vomiting, denies jaundice/hepatitis, NOTES gallbladder problems, denies black or tarry stools, NOTES hemorrhoids, denies bleeding from rectum, denies diverticulitis, denies constipation, denies diarrhea, denies loss of stool control, and denies hernias. Kidney/Bladder: The patient denies kidney stones, denies urine infections, and denies bloody urine. Skin: The patient denies a history of skin cancer, denies bleeding/changing moles, and denies a history of skin rash. Neurologic: The patient denies a history of epilepsy/convulsions, denies headaches, denies head/spinal injuries, and denies stroke/TIA. Psychiatric: The patient denies psychiatric medications, denies depression, and denies voices, denies substance abuse. Endocrine: The patient NOTES thyroid disorders, denies diabetes, and denies hormonal problems. Hematologic: The patient NOTES a history of bruising, denies bleeding, and denies anemia, denies blood clots. Infections: The patient NOTES a history of measles and mumps, denies rheumatic fever, and denies sexually transmitted diseases. Musculoskeletal: The patient denies back pain/injury, denies back problems, NOTES sciatica, denies knee/foot trouble, denies arthritis, or denies gout. When was patient's last Mammogram screening? N/A Last Colonoscopy: 2017 Stacy Landrum LPN documented in this encounterTrihealth02-06-2023 Miscellaneous Notes* Telephone Encounter - Mindy Emerson APRN.CNP - 09/06/2022 4:27 PM EST Order placed. * Telephone Encounter - Aster Holland LPN - 09/06/2022 3:45 PM EST [facility] is [facility] a [facility] colonoscopy 5 year repeat. documented in this encounterTrihealth09-09-2022 Miscellaneous Notes* Telephone Encounter - Sheila Crawford LPN - 04/09/2022 9:58 AM EDT Rec'd fax from diagnostics noting pt is requesting genetic testing. This can be reviewed with pt and pcp at an appt. documented in this encounterTrihealth06-22-2022 Instructions* Patient Instructions* Marika Park MD - 01/20/2022 4:41 PM EDT Decrease thyroid 137mcg tablet to taking 6 pills total per week (can do half pill on the weekends and whole pill rest of week) till gone then start the new dose 112 mcg daily. Limit calcium total intake from diet and pills to 1200 mg per day. documented in this encounterTrihealth06-22-2022 History of Present illness Narrative* Marika Park MD - 01/20/2022 4:28 PM EDT Images from the original note were not included. This note was created using HipSw[employer]. Subjective Marietta Temple is a 76 year old female. Patient presents with: F/U 6 months SUBJECTIVE: Marietta Temple is a 76 year old year old lady here today for 6 month follow up appointment for review of medical conditions. Noted that had added Calcium/Magnesium pill after the labs. Has MVI with calcium Does golfing and water aerobics; staying active outdoors. Walks in the evening when not too hot. recovering from rectal cancer. A month out from chemo/radtx Doing well since on Eliquis. Not as much palpitations. BP down to 113 range. Moodispaw and Toby Roof. is HCDPOA Noted lump over left SI joint area. Tender sometimes. Feels lipomatous. Also one right mid back just above bra line PAST MEDICAL HISTORY Diagnosis Date Benign neoplasm of colon Colon polyp Cystocele, midline Hemorrhage of gastrointestinal tract, unspecified Hypothyroidism, postsurgical Indeterminate pulmonary nodules 12/18/2012 CT stable 2009 through 10/2012. 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 apixaban (ELIQUIS) 5 mg tab(s) Take 1 tablet by mouth twice daily. losartan (COZAAR) 50 mg tablet Take 1 tablet by mouth once daily. DOSE CHANGE, take one daily triamterene-hydroCHLOROthiazide (MAXZIDE-25) 37.5-25 mg per tablet Take 1 tablet by mouth once daily. diphenhydramine HCl (ALLERGY ORAL) Take 1 capsule by mouth once daily. levothyroxine (LEVOXYL) 137 mcg tablet Half pill on Sundays, 1 pill all other days a week conjugated estrogens (PREMARIN) vaginal cream Use small amount at vaginal opening twice a week Amoxicillin 500 mg tablet TAKE 4 PILLS 1 HOUR PRIOR TO DENTAL PROCEDURE Multivitamin capsule Take 1 capsule by mouth once daily. magnesium oxide 200 mg magnesium tab Take 1 tablet by mouth once daily. cholecalciferol (VITAMIN D-3) 2,000 unit tablet Take 2,000 Units by mouth once daily. coenzyme Q10 (CO Q-10) 100 mg cap Take 100 mg by mouth once daily. meclizine (ANTIVERT) 25 mg tab Take 1 tablet by mouth three times daily. aspirin 81 mg chewable tablet Take 81 mg by mouth as needed. FISH OIL CAP Take one(1) capsule daily. (Patient not taking: ) No current facility-administered medications for this visit. Review of Systems Objective BP 122/82 Pulse 71 Wt 83.5 kg (184 lb) SpO2 97% BMI 32.20 kg/m Last 5 Encounter Wt Readings: Date: Wt: 01/20/2022 83.5 kg (184 lb) 12/14/2021 85 kg (187 lb 6.4 oz) 05/05/2021 82.1 kg (181 lb) 02/20/2021 83.5 kg (184 lb) 01/30/2021 85.2 kg (187 lb 12.8 oz) No waist measurement recorded Estimated body mass index is 32.2 kg/m as calculated from the following: Height as of 01/20/21: 161 cm (5' 3.39). Weight as of this encounter: 83.5 kg (184 lb). Last 5 Encounter BP Readings: Date: BP: 01/20/2022 122/82 12/14/2021 172/94 05/05/2021 140/80 02/20/2021 140/80 01/30/2021 140/88 Physical Exam Constitutional: Appearance: Normal appearance. HENT: Head: Normocephalic. Eyes: Conjunctiva/sclera: Conjunctivae normal. Cardiovascular: Rate and Rhythm: Normal rate. Heart sounds: Normal heart sounds. Pulmonary: Effort: Pulmonary effort is normal. Breath sounds: Normal breath sounds. Musculoskeletal: Back: Right lower le+ Pitting Edema present. Left lower le+ Pitting Edema present. Comments: Lipomatous lumps on back--one over SI joint are sometimes tender) Skin: General: Skin is warm and dry. Neurological: General: No focal deficit present. Mental Status: She is alert and oriented to person, place, and time. Psychiatric: Mood and Affect: Mood normal. Behavior: Behavior normal. Thought Content: Thought content normal. Judgment: Judgment normal. Component Latest Ref Rng & Units 06/18/2020 07/18/2021 01/15/2022 Protein, Total 6.3 - 8.0 g/dL 7.3 Albumin 3.9 - 4.9 g/dL 4.2 Calcium 8.5 - 10.2 mg/dL 10.3 (H) 9.8 10.7 (H) Bilirubin, Total 0.2 - 1.3 mg/dL 0.3 Alkaline Phosphatase 34 - 123 U/L 101 AST 13 - 35 U/L 23 ALT 7 - 38 U/L 24 Glucose 74 - 99 mg/dL 70 (L) 92 90 BUN 7 - 21 mg/dL 13 13 15 Creatinine 0.58 - 0.96 mg/dL 0.82 0.69 0.69 Sodium 136 - 144 mmol/L 141 141 140 Potassium 3.7 - 5.1 mmol/L 3.7 4.3 4.1 Chloride 97 - 105 mmol/L 99 102 100 CO2 22 - 30 mmol/L 31 (H) 29 29 Anion Gap 9 - 18 mmol/L 11 10 11 eGFR >=60 mL/min/1.73m 90 eGFR- >60 >60 eGFR-All Other Races . >60 >60 WBC 3.70 - 11.00 k/uL 9.40 8.00 8.71 RBC 3.90 - 5.20 m/uL 5.00 5.03 5.11 Hemoglobin 11.5 - 15.5 g/dL 14.0 13.8 13.9 Hematocrit 36.0 - 46.0 % 44.8 44.4 45.3 MCV 80.0 - 100.0 fL 89.6 88.3 88.6 MCH 26.0 - 34.0 pg 28.0 27.4 27.2 MCHC 30.5 - 36.0 g/dL 31.3 31.1 30.7 RDW-CV 11.5 - 15.0 % 13.5 13.9 14.3 Platelet Count 150 - 400 k/uL 331 311 318 MPV 9.0 - 12.7 fL 11.0 11.3 10.8 Absolute nRBC <0.01 k/uL <0.01 <0.01 <0.01 Thyroglobulin 1.6 - 59.9 ng/mL 7.7 8.3 TG Antibody Screen <14.4 IU/mL <1.0 Hemoglobin A1C 4.3 - 5.6 % 5.8 (H) 5.9 (H) Estimated Average Glucose mg/dL 120 123 TSH 0.270 - 4.200 mIU/L 0.924 1.150 0.103 (L) Free T4 0.9 - 1.7 ng/dL 1.7 1.8 (H) Free T3 2.3 - 4.1 pg/mL 2.9 Thyroglobulin Ab <14.4 IU/mL <1.0 Assessment and Plan ASSESSMENT/PLAN: 1. Hypothyroidism, postsurgical - ICD9: 244.0, ICD10: E89.0 (primary diagnosis) - Instructed patient on importance of taking on an empty stomach either first thing in the morning or at bedtime. - Decrease Synthroid dose to 0.112 mg - LEVOTHYROXINE 112 MCG TABLET - TSH BLD 2. Essential hypertension with goal blood pressure less than 140/90 - ICD9: 401.9, ICD10: I10 - good control - Continue current medication(s) - Recommended regular aerobic exercise. - Recommend home blood pressure monitoring, to bring results in on next visit - Goal of BP <130/80 - TRIAMTERENE 37.5 MG-HYDROCHLOROTHIAZIDE 25 MG TABLET - LOSARTAN 50 MG TABLET - METOPROLOL SUCCINATE ER 25 MG TABLET,EXTENDED RELEASE 24 HR - COMP METABOLIC PANEL - CBC - LIPID PANEL BASIC 3. History of thyroid cancer - ICD9: V10.87, ICD10: Z85.850 Continue present management. - LEVOTHYROXINE 112 MCG TABLET 4. Atrial flutter by electrocardiogram (HCC) - ICD9: 427.32, ICD10: I48.92 Continue present management. - METOPROLOL SUCCINATE ER 25 MG TABLET,EXTENDED RELEASE 24 HR - APIXABAN 5 MG TABLET 5. Lipoma of buttock - ICD9: 214.1, ICD10: D17.1 Discussed benign. Can refer for excision if symptomatic 6. Lipoma of back - ICD9: 214.8, ICD10: D17.1 As noted above 7. Hypercalcemia - ICD9: 275.42, ICD10: E83.52 Further evaluation and treatment as indicated. - VITAMIN D 25 HYDROXY - PTH INTACT BLD Marika Park MD documented in this encounterTrihealth05-16-2022 History of Present illness Narrative* Denia Melgar APRN.SENIOR RECRUITMENT CONSULTANT - 12/14/2021 4:45 PM EDT Images from the original note were not included. Subjective The history is provided by the patient. No diesel stationary engineer was used. MANI Temple is a 76 year old female who presents today for CC of scratch on the back of the left leg. She is unsure how it happened, possible dipesh thorn caught her leg. She has not used any medications or treatment. She denies any purulent drainage or redness, there is clear drainage. BP 172/94 Pulse 80 Temp (!) 35.9 C (96.6 F) Resp 21 Wt 85 kg (187 lb 6.4 oz) SpO2 96% BMI 32.79 kg/m Social History Tobacco Use Smoking status: Former Smoker Packs/day: 1.00 Years: 30.00 Pack years: 30.00 Quit date: 09/30/1999 Years since quittin.2 Smokeless tobacco: Never Used Vaping Use Vaping Use: Never used Substance Use Topics Alcohol use: Yes Comment: Rarely 1 per month Drug use: No PAST MEDICAL HISTORY Diagnosis Date Benign neoplasm of colon Colon polyp Cystocele, midline Hemorrhage of gastrointestinal tract, unspecified Hypothyroidism, postsurgical Indeterminate pulmonary nodules 12/18/2012 CT stable 2009 through 10/2012. 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 Musculoskeletal: Negative for joint pain and myalgias. Skin: Negative for itching and rash. Scratch on back of left leg All other systems reviewed and are negative. Objective Physical Exam Vitals and nursing note reviewed. Pulmonary: Effort: Pulmonary effort is normal. Skin: General: Skin is warm and dry. Findings: Erythema present. Neurological: Mental Status: She is alert and oriented to person, place, and time. Psychiatric: Mood and Affect: Affect normal. ASSESSMENT/PLAN: 1. Scratch - ICD9: 919.0, ICD10: T14.8XXA Wound care discussed, see patient instructions Mupirocin Tylenol prn Monitor for signs of infection Follow up with PcP as needed Diagnosis and treatment plan were discussed and questions were answered to the patient's satisfaction. Pt acknowledged understanding of concepts and follow up plan. Specific signs and symptoms that would indicate the need for higher level of care were discussed indetail warranting prompt ER evaluation. Denia Melgar APRN.MAYANK documented in this encounterTrihealth05-16-2022 Instructions* Patient Instructions* Denia Melgar APRN.CNP - 12/14/2021 4:35 PM EDT Wound Care - Keep the area clean and dry -Clean with soap and water . Apply mupirocin ointment 2 - 3 times a day. -Tylenol or Ibuprofen for discomfort -Observe area for signs of infection: redness, warmth, foul odor, drainage or increase in discomfort. -Call your primary care physician's office for a follow up appointment as needed documented in this encounterTrihealth12-21-2021 History of Present illness Narrative* Marika Park MD - 07/21/2021 2:47 PM EST AMBULATORY TELEPHONE VISIT Marietta Temple has consented to this telephone encounter. Persons Present: patient Chief Complaint/Reason: 6 months FU HPI: SUBJECTIVE: Marietta Temple is a 76 year old year old lady here today for 6 month follow up appointment for review of medical conditions. Vertigo when pushed head back. Also when tilts head back. Was putting eye drops in when had vertigo this AM. Has to avoid quick movements. Neck stiff from rolling cookies. Ice helping. Stress test to be done per Dr. Hurley. Had episode of a flutter in ER that spontaneously converted. To get echocardiogram. Discussed had COVID in October. PAST MEDICAL HISTORY Diagnosis Date Benign neoplasm of colon Colon polyp Cystocele, midline Hemorrhage of gastrointestinal tract, unspecified Hypothyroidism, postsurgical Indeterminate pulmonary nodules 12/18/2012 CT stable 2009 through 10/2012. 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 metoprolol succinate ER (TOPROL XL) 25 mg 24 hr tablet Take 1 tablet by mouth once daily. apixaban (ELIQUIS) 5 mg tab(s) Take 1 tablet by mouth twice daily. losartan (COZAAR) 50 mg tablet Take 1 tablet by mouth once daily. DOSE CHANGE, take one daily triamterene-hydroCHLOROthiazide (MAXZIDE-25) 37.5-25 mg per tablet Take 1 tablet by mouth once daily. diphenhydramine HCl (ALLERGY ORAL) Take 1 capsule by mouth once daily. levothyroxine (LEVOXYL) 137 mcg tablet Half pill on Sundays, 1 pill all other days a week conjugated estrogens (PREMARIN) vaginal cream Use small amount at vaginal opening twice a week Amoxicillin 500 mg tablet TAKE 4 PILLS 1 HOUR PRIOR TO DENTAL PROCEDURE Multivitamin capsule Take 1 capsule by mouth [...] FISH OIL CAP Take one(1) capsule daily. (Patient not taking: ) No current facility-administered medications for this visit. Data Reviewed: Most recent labs Component Latest Ref Rng & Units 07/18/2021 Glucose 74 - 99 mg/dL 92 BUN 7 - 21 mg/dL 13 Creatinine 0.58 - 0.96 mg/dL 0.69 Sodium 136 - 144 mmol/L 141 Potassium 3.7 - 5.1 mmol/L 4.3 Chloride 97 - 105 mmol/L 102 CO2 22 - 30 mmol/L 29 Anion Gap 9 - 18 mmol/L 10 Calcium 8.5 - 10.2 mg/dL 9.8 eGFR- >60 eGFR-All Other Races . >60 WBC 3.70 - 11.00 k/uL 8.00 RBC 3.90 - 5.20 m/uL 5.03 Hemoglobin 11.5 - 15.5 g/dL 13.8 Hematocrit 36.0 - 46.0 % 44.4 MCV 80.0 - 100.0 fL 88.3 MCH 26.0 - 34.0 pG 27.4 MCHC 30.5 - 36.0 g/dL 31.1 RDW-CV 11.5 - 15.0 % 13.9 Platelet Count 150 - 400 k/uL 311 MPV 9.0 - 12.7 fL 11.3 Absolute nRBC <0.01 k/uL <0.01 Hemoglobin A1C 4.3 - 5.6 % 5.8 (H) Estimated Average Glucose mg/dL 120 TSH 0.270 - 4.200 uU/mL 1.150 ASSESSMENT/PLAN: 1. Hypothyroidism, postsurgical - ICD9: 244.0, ICD10: E89.0 (primary diagnosis) - continue current dose of Synthroid 0.137 mg - TSH BLD - T4 FREE/FREE THYROX - T3 FREE BLD 2. History of thyroid cancer - ICD9: V10.87, ICD10: Z85.850 Continue present management. - THYROGLOBULIN BLD 3. Essential hypertension - ICD9: 401.9, ICD10: I10 - Continue current medication(s) - Recommended regular aerobic exercise. - Goal of BP <130/80 - COMP METABOLIC PANEL - CBC 4. Medication management - ICD9: V58.69, ICD10: Z79.899 - COMP METABOLIC PANEL - CBC 5. Elevated hemoglobin A1c - ICD9: 790.29, ICD10: R73.09 Needs to keep working on diet and exercise with lifestyle changes for effective weight loss as wellas prevention of DM, and control of BP and lipids. - HGB A1C - COMP METABOLIC PANEL Above issues addressed with patient. Patient involved in shared decision making for management of medical issues. History and medications reviewed. Epic updated as needed Refills and/or prescriptions taken care of and meds adjusted as indicated after reviewed history, exam and labs. Health Maintenance reviewed. Updated record and/or ordered tests as recorded. Encouraged on efforts at healthy diet and regular exercise and adequate sleep. I spent a total of 21+ minutes on the date of the service which included preparing to see the patient, completing clinical documentation, obtaining and/or reviewing separately obtained history, performing a medically appropriate examination and ordering medications, tests, or procedures. 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 04/30/2005 09/09/2006 Female stress incontinence 11/04/200403/03 Uterovaginal prolapse, unspecified 11/04/2004 03/03/2009 documented as of this encounter (statuses as of 12/14/2021) [facility] of [facility] Narrative* Problem Noted Date Resolved Date Rectocele 02/29/2008 03/03/2009 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 04/30/2005 09/09/2006 Female stress incontinence 11/04/200403/03 Uterovaginal prolapse, unspecified 11/04/2004 03/03/2009 documented as of this encounter (statuses as of 03/26/2022) [facility] of Past illness Narrative* Problem Noted Date Resolved Date Rectocele 02/29/2008 03/03/2009 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 04/30/2005 09/09/2006 Female stress incontinence 11/04/200403/03 Uterovaginal prolapse, unspecified 11/04/2004 03/03/2009 documented as of this encounter (statuses as of 04/14/2022) [facility] of [facility] illness Narrative* Problem Noted Date Resolved Date Rectocele 02/29/2008 03/03/2009 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 04/30/2005 09/09/2006 Female stress incontinence 11/04/200403/03 Uterovaginal prolapse, unspecified 11/04/2004 03/03/2009 documented as of this encounter (statuses as of 09/07/2022) [facility] Narrative* Problem Noted Date Resolved Date Rectocele 02/29/2008 03/03/2009 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 04/30/2005 09/09/2006 Female stress incontinence 11/04/200403/03 Uterovaginal prolapse, unspecified 11/04/2004 03/03/2009 documented as of this encounter (statuses as of 09/22/2022) [address]31-2008 History of Past illness Narrative* Problem Noted Date Resolved Date Rectocele 02/29/2008 03/03/2009 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 04/30/2005 09/09/2006 Female stress incontinence 11/04/200403/03 Uterovaginal prolapse, unspecified 11/04/2004 03/03/2009 documented as of this encounter (statuses as of 10/25/2022) [facility] Narrative* Problem Noted Date Resolved Date Rectocele 02/29/2008 03/03/2009 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 04/30/2005 09/09/2006 Female stress incontinence 11/04/200403/03 Uterovaginal prolapse, unspecified 11/04/2004 03/03/2009 documented as of this encounter (statuses as of 10/26/2022) [facility] Narrative* Problem Noted Date Resolved Date Rectocele 02/29/2008 03/03/2009 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 04/30/2005 09/09/2006 Female stress incontinence 11/04/200403/03 Uterovaginal prolapse, unspecified 11/04/2004 03/03/2009 documented as of this encounter (statuses as of 11/03/2022) [facility] of Past illness Narrative* Problem Noted Date Resolved Date Rectocele 02/29/2008 03/03/2009 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 04/30/2005 09/09/2006 Female stress incontinence 11/04/200403/03 Uterovaginal prolapse, unspecified 11/04/2004 03/03/2009 documented as of this encounter (statuses as of 11/18/2022) [facility] of [facility] Narrative* Problem Noted Date Resolved Date Rectocele 02/29/2008 03/03/2009 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 04/30/2005 09/09/2006 Female stress incontinence 11/04/200403/03 Uterovaginal prolapse, unspecified 11/04/2004 03/03/2009 documented as of this encounter (statuses as of 11/18/2022) [facility] of [facility] Narrative* Problem Noted Date Resolved Date Rectocele 02/29/2008 03/03/2009 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 04/30/2005 09/09/2006 Female stress incontinence 11/04/200403/03 Uterovaginal prolapse, unspecified 11/04/2004 03/03/2009 documented as of this encounter (statuses as of 01/05/2023) [facility] of Past [facility] Narrative* Problem Noted Date Diagnosed Date Resolved Date Rectocele 02/29/2008 03/03/2009 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 04/30/2005 09/09/2006 Female stress incontinence 11/04/2004 0 03/03/2009 Uterovaginal prolapse, unspecified 11/04/2004 03/03/2009 documented as of this encounter (statuses as of 02/09/2023) [facility] of [facility] Narrative* Problem Noted Date Diagnosed Date Resolved Date Rectocele 02/29/2008 03/03/2009 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 04/30/2005 09/09/2006 Female stress incontinence 11/04/2004 0 03/03/2009 Uterovaginal prolapse, unspecified 11/04/2004 03/03/2009 documented as of this encounter (statuses as of 06/05/2023) [facility] of Past illness Narrative* Problem Noted Date Diagnosed Date Resolved Date Rectocele 02/29/2008 03/03/2009 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 04/30/2005 09/09/2006 Female stress incontinence 11/04/2004 0 03/03/2009 Uterovaginal prolapse, unspecified 11/04/2004 03/03/2009 documented as of this encounter (statuses as of 10/09/2023) [facility] of Past [facility] Narrative* Problem Noted Date Diagnosed Date Resolved Date Rectocele 02/29/2008 03/03/2009 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 04/30/2005 09/09/2006 Female stress incontinence 11/04/2004 0 03/03/2009 Uterovaginal prolapse, unspecified 11/04/2004 03/03/2009 documented as of this encounter (statuses as of 10/12/2023) [facility] Narrative* Problem Noted Date Diagnosed Date Resolved Date Rectocele 02/29/2008 03/03/2009 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 04/30/2005 09/09/2006 Female stress incontinence 11/04/2004 0 03/03/2009 Uterovaginal prolapse, unspecified 11/04/2004 03/03/2009 documented as of this encounter (statuses as of 10/17/2023) [facility] of Past [facility] Narrative* Problem Noted Date Diagnosed Date Resolved Date Rectocele 02/29/2008 03/03/2009 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 04/30/2005 09/09/2006 Female stress incontinence 11/04/2004 0 03/03/2009 Uterovaginal prolapse, unspecified 11/04/2004 03/03/2009 documented as of this encounter (statuses as of 10/24/2023) [facility] of Past illness Narrative* Problem Noted Date Diagnosed Date Resolved Date Rectocele 02/29/2008 03/03/2009 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 04/30/2005 09/09/2006 Female stress incontinence 11/04/2004 0 03/03/2009 Uterovaginal prolapse, unspecified 11/04/2004 03/03/2009 documented as of this encounter (statuses as of 11/01/2023) [facility] of [facility] illness Narrative* Problem Noted Date Diagnosed Date Resolved Date Rectocele 02/29/2008 03/03/2009 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 04/30/2005 09/09/2006 Female stress incontinence 11/04/2004 0 03/03/2009 Uterovaginal prolapse, unspecified 11/04/2004 03/03/2009 documented as of this encounter (statuses as of 11/02/2023) [facility] note* Diagnosis Hypothyroidism, postsurgical- Primary Postsurgical hypothyroidism History of thyroid cancer Personal history of malignant neoplasm of thyroid Essential hypertension Unspecified essential hypertension Medication management Encounter for long-term (current) use of other medications Elevated hemoglobin A1c Other abnormal blood chemistry [facility]* Diagnosis Scratch- Primary Abrasion or friction burn of other, multiple, and unspecified sites, without mention of infection [facility]* Diagnosis Hypothyroidism, postsurgical- Primary Postsurgical hypothyroidism Essential hypertension with goal blood pressure less than 140/90 History of thyroid cancer Personal history of malignant neoplasm of thyroid Atrial flutter by electrocardiogram (HCC) Atrial flutter Lipoma of buttock Lipoma of other skin and subcutaneous tissue Lipoma of back Lipoma of other specified sites Hypercalcemia documented in this encounter [facility]* Diagnosis Colon cancer screening- Primary Special screening for malignant neoplasms, colon documented in this encounter [facility]* Diagnosis History of colonic polyps- Primary Personal history of colonic polyps Colon cancer screening Special screening for malignant neoplasms, colon documented in this encounter [facility]* Diagnosis Acute cough- Primary Wheezing documented in this encounter [facility]* Diagnosis Chronic cough- Primary Cough Indeterminate pulmonary nodules Other nonspecific abnormal finding of lung field documented in this encounter [facility]* Diagnosis Onset Date Resolution Status Dyspnea on exertion chronic [facility] Work Phone: Evaluation note* Diagnosis Hypothyroidism, postsurgical Postsurgical hypothyroidism History of thyroid cancer Personal history of malignant neoplasm of thyroid Essential hypertension with goal blood pressure less than 140/90 Atrial flutter by electrocardiogram (HCC) Atrial flutter documented in this encounter [facility] note* Diagnosis Special screening for malignant neoplasms, colon- Primary History of colonic polyps Personal history of colonic polyps documented in this encounter [facility]* Diagnosis Cellulitis of skin- Primary Cellulitis and abscess of unspecified site [facility]* Diagnosis Left leg cellulitis- Primary Cellulitis and abscess of leg, except foot [facility] Left leg cellulitis- Primary Cellulitis and abscess of leg, except foot [facility] Diagnosis Left leg cellulitis- Primary Cellulitis and abscess of leg, except foot [facility] Diagnosis Left leg cellulitis- Primary Cellulitis and abscess of leg, except foot Pain and swelling of left lower leg [facility]* Diagnosis Left leg cellulitis Cellulitis and abscess of leg, except foot [facility]* Diagnosis Left leg cellulitis Cellulitis and abscess of leg, except foot Pain and swelling of left lower leg [facility]* Diagnosis Essential hypertension with goal blood pressure less than 140/90 Atrial flutter by electrocardiogram ([facility]) Atrial flutter Hypothyroidism, postsurgical Postsurgical hypothyroidism History of thyroid cancer Personal history of malignant neoplasm of thyroid [facility]* Diagnosis Atrial flutter by electrocardiogram ([facility]) Atrial flutter Hypothyroidism, postsurgical Postsurgical hypothyroidism History of thyroid cancer Personal history of malignant neoplasm of thyroid Essential hypertension with goal blood pressure less than 140/90 [facility]* Diagnosis Acute cough Wheezing [facility] Diagnosis Medicare annual wellness visit, subsequent- Primary Routine general medical examination at a health care facility Essential hypertension with goal blood pressure less than 140/90 History of thyroid cancer Personal history of malignant neoplasm of thyroid Hypothyroidism, postsurgical Postsurgical hypothyroidism Hypocalcemia Elevated hemoglobin A1c Other abnormal blood chemistry Encounter for long-term current use of medication Screening for depression Encounter for screening examination for other mental health and behavioral disorders Encounter for immunization Need for other specified prophylactic vaccination against single bacterial disease [facility] Diagnosis Essential hypertension with goal blood pressure less than 140/90- Primary [facility]* Diagnosis COPD with exacerbation (HCC)- Primary Obstructive chronic bronchitis with exacerbation [facility]* Diagnosis Chest pain, unspecified type- Primary [facility]* Diagnosis Other iron deficiency anemia- Primary Hiatal hernia Diaphragmatic hernia without mention of obstruction or gangrene Essential hypertension with goal blood pressure less than 140/90 Bilateral lower extremity edema Edema Angiodysplasia of colon with hemorrhage Angiodysplasia of intestine with hemorrhage Encounter for long-term current use of medication [facility]* Diagnosis Hypothyroidism, postsurgical Postsurgical hypothyroidism History of thyroid cancer Personal history of malignant neoplasm of thyroid [facility]* Diagnosis High serum thyroglobulin- Primary History of thyroid cancer Personal history of malignant neoplasm of thyroid Hypothyroidism, postsurgical Postsurgical hypothyroidism Essential hypertension with goal blood pressure less than 140/90 Hypocalcemia Essential hypertension Unspecified essential hypertension Dysmetabolic syndrome X Dysmetabolic Syndrome X Vitamin D deficiency Unspecified vitamin D deficiency [facility]* Diagnosis Skin infection- Primary Unspecified local infection of skin and subcutaneous tissue Infected skin tear Open wound(s) (multiple) of unspecified site(s), complicated [facility]* Diagnosis Atrial flutter by electrocardiogram (HCC) Atrial flutter [facility]* Diagnosis Medicare annual wellness visit, subsequent- Primary Routine general medical examination at a [facility] facility Screening for depression Encounter for screening examination for other mental health and behavioral disorders Encounter for immunization Need for other specified prophylactic vaccination against single bacterial disease Gastrointestinal hemorrhage, unspecified gastrointestinal hemorrhage type Hypothyroidism, postsurgical Postsurgical hypothyroidism History of thyroid cancer Personal history of malignant neoplasm of thyroid Chronic anticoagulation Long-term (current) use of anticoagulants Cellulitis of right lower extremity Cellulitis and abscess of leg, except foot documented in this encounter [facility] for referral (narrative)* Outpatient Procedure (Routine) - Closed Specialty Diagnoses / Procedures Referred By Ozzie mcgill Referred To Contact [facility] Diagnoses History of colonic polyps Procedures COLONOSCOPY SCREENING COLONOSCOPY FLX DX W/COLLJ SPEC WHEN PFRMD Le Mas PA-C [address] [place] [address] [facility] [place] [address] [place] [address] Referral ID Status Reason Start Date Expiration Date V isits Requested Visits Authorized [id number] Closed Auto-Generate d Referral 09/15/2022 09/15/2023 1 1 [facility] for referral (narrative)* Diagnostic Procedure Only (Routine) - Pending Review Specialty Diagnoses / Procedures Referred By Contac t Referred To Contact XR IMAGING Diagnoses Left leg cellulitis Procedures XR TIBIA FIBULA 2V AP/LAT LEFT RADIOLOGIC EXAMINATION TIBIA & FIBULA 2 VIEWS Guillermo Alcantara APRN.IS CONSULTANT [address] [place] [address] [place] [address] Referral ID Status Reason Start Date Expiration Date Visits Requested Visits Authorized [id number] Pending Review Auto-Generat ed Referral 10/17/2023 11/15/2024 1 1 [facility] for referral (narrative)* Outpatient Procedure (Routine) - Authorized Specialty Diagnoses / Procedures Referred By Contac t Referred To Contact [facility] Diagnoses Left leg cellulitis Pain and swelling of left lower leg Procedures US LEG VEIN DVT UNL VAS LAB DUP-SCAN XTR VEINS UNILATERAL/LIMITED STUDY Guillermo Alcantara APRN.IS CONSULTANT [address] [place] [address] [facility] [place] [address] [place] [address] Referral ID Status Reason Start Date Expiration Date Visits Requested Visits Authorized [id number] Authorized Auto-Generat ed Referral 11/01/2023 10/31/2024 1 1 [facility] for referral (narrative)No reason for referral information [facility] Work Phone: Reason for visit Narrative* Diagnostic Procedure Only (Routine) - Closed Specialty Diagnoses / Procedures Referred By Contac t Referred To Contact XR IMAGING Diagnoses Left leg cellulitis Procedures XR TIBIA FIBULA 2V AP/LAT LEFT RADIOLOGIC EXAMINATION TIBIA & FIBULA 2 VIEWS Guillermo Alcantara APRN.IS CONSULTANT [address] [place] [address] [place] [address] Referral ID Status Reason Start Date Expiration Date V isits Requested Visits Authorized [id number] Closed Auto-Generate d Referral 10/17/2023 11/15/2024 1 1 [facility] Procedure (Routine) - Closed Specialty Diagnoses / Procedures Referred By Contac t Referred To [facility] Diagnoses Left leg cellulitis Pain and swelling of left lower leg Procedures US LEG VEIN DVT UNL VAS LAB DUP-SCAN XTR VEINS UNILATERAL/LIMITED STUDY Guillermo Alcantara, AUTOMATED ACCESS SYSTEMS TECHNICIAN.IS CONSULTANT [address] [place] [address] [facility] [place] [address] [place] [address] Referral ID Status Reason Start Date Expiration Date V isits Requested Visits Authorized [id number] Closed Auto-Generate d Referral 11/01/2023 10/31/2024 1 1 [facility] Summary Purpose Family History Relationship Condition Age at Onset Recorded Date/T malcom father Alcoholism Unknown Pulmonary emphysema Unknown sister Unknown Malignant neoplasm Unknown Diabetes mellitus Unknown Cerebrovascular accident (CVA) Unknown Disorder of thyroid Unknown Malignant neoplasm of uterus Unknown brother Malignant neoplasm Unknown mother Diabetes mellitus Unknown Myocardial infarction Unknown Cardiac disease Unknown Hypertension Unknown Advance Directives Documents on File Type Date Recorded Patient Felt Pad Cutter Expl anation Advance Directive(s) 11/08/2017 8:51 AM Advance Directive(s) 10/24/2017 4:02 PM Advance Directive Response Recorded Date/ Time Living Will No May 02 6:38pm Power of Talent Agent No May 02 6:38pm Advance Directive Response Recorded Date/ Time Living Will No May 02 6:38pm Do you have a Healthcare Power of Talent Agent? No May 02, 2021 6:38pm Living Will Yes August 15 6:02am Do you have a Healthcare Power of Talent Agent? Yes August 15, 2024 6:02am Name of Medical Power of Talent Agent adolph August 15, 2024 6:02am Advance Directive Response Recorded Date/ Time Living Will No May 02 6:38pm Do you have a Healthcare Power of Talent Agent? No May 02, 2021 6:38pm Advance Directive Response Recorded Date/ Time Living Will No May 02 6:38pm Do you have a Healthcare Power of Talent Agent? No May 02, 2021 6:38pm Do you have a Healthcare Power of Talent Agent? No December 31, 2024 3:09pm Advance Directive Response Recorded Date/ Time Do you have a Healthcare Power of Talent Agent? No December 31, 2024 3:09pm Reason for Referral Specialty Diagnoses / Procedures Referred By Contac t Referred To Contact General Surgery Diagnoses Colon cancer screening Procedures CONSULT TO GENERAL SURGERY OFFICE/OUTPATIENT [facility] 60-74 MINUTES Mindy Emerson APRN.SENIOR RECRUITMENT CONSULTANT [address] [place] [address] Referral ID Status Reason Start Date Expiration Date Visits Requested Visits Authorized [id number] Authorized PCP Requested Referral 09/06/2022 09/06/2023 1 1 Specialty Diagnoses / Procedures Referred By Contac t Referred To Contact Diagnoses Chronic cough Indeterminate pulmonary nodules Procedures CONSULT TO PULM/CRITICAL CARE OFFICE/OUTPATIENT [facility] 60-74 MINUTES Mindy Emerson APRN.SENIOR RECRUITMENT CONSULTANT [address] [place] [address] Referral ID Status Reason Start Date Expiration Date Visits Requested Visits Authorized [id number] Authorized PCP Requested Referral 01/04/2023 01/04/2024 1 1 Chief Complaint and Reason for Visit Chief Complaint chronic cough CHR COUGH CHR COUGH Reason for Visit Dyspnea on exertion Chief Complaint Admit Date palpitations August 15, 2024 5 :01am S/P [facility] 08/15September 06, 2024 1 1:20am 6 M FU September 18, 2024 1:39pm PALPITATIONS October 25, 2024 9:4 6am PALPITATIONS October 25, 2024 10: 03am Reason for Visit Admit Date Essential hypertension September 06 11:20am Paroxysmal atrial fibrillation September 06, 2024 11:20am COPD (chronic obstructive pulmonary dise ase) September 18, 2024 1:39pm Chief Complaint Admit Date S/P [facility] 08/15September 06, 2024 1 1:20am 6 M FU September 18, 2024 1:39pm PALPITATIONS October 25, 2024 9:4 6am PALPITATIONS October 25, 2024 10: 03am UPPER GI BLEED December 31, 2024 2:34p m Reason for Visit Admit Date Essential hypertension September 06 11:20am Paroxysmal atrial fibrillation September 06, 2024 11:20am COPD (chronic obstructive pulmonary dise ase) September 18, 2024 1:39pm Acute anemia December 31, 2024 2:34p m Chronic anticoagulation December 31, 2024 2 :34pm Exertional dyspnea December 31, 2024 2:34p m Generalized weakness December 31, 2024 2:34 pm GIB (gastrointestinal bleeding) December 2:34pm History of atrial fibrillation December 31, 2024 2:34pm Medication side effect December 31, 2024 2: 34pm Melena December 31, 2024 2:34p m Chief Complaint Admit Date S/P [facility] 08/15September 06, 2024 1 1:20am 6 M FU September 18, 2024 1:39pm PALPITATIONS October 25, 2024 9:4 6am PALPITATIONS October 25, 2024 10: 03am UPPER GI BLEED December 31, 2024 2:34p m UPPER GI BLEED December 31, 2024 7:25p m UPPER GI BLEED January 01, 2025 9:18a m UPPER GI BLEED January 01, 2025 3:19p m UPPER GI BLEED January 02, 2025 7:35a m UPPER GI BLEED January 02, 2025 1:21p m UPPER GI BLEED January 03, 2025 11:38 am UPPER GI BLEED January 04, 2025 9:41a m Chief Complaint Admit Date UPPER GI BLEED December 31, 2024 2:34p m UPPER GI BLEED December 31, 2024 7:25p m UPPER GI BLEED January 01, 2025 9:18a m UPPER GI BLEED January 01, 2025 3:19p m UPPER GI BLEED January 02, 2025 7:35a m UPPER GI BLEED January 02, 2025 1:21p m UPPER GI BLEED January 03, 2025 11:38 am UPPER GI BLEED January 04, 2025 9:41a m 6 M F/U March 18, 2025 11 :48am Reason for Visit Admit Date Chronic anticoagulation December 31, 2024 2 :34pm History of atrial fibrillation December 31, 2024 2:34pm Acute anemia December 31, 2024 2:34p m Exertional dyspnea December 31, 2024 2:34p m Generalized weakness December 31, 2024 2:34 pm GIB (gastrointestinal bleeding) December 2:34pm Medication side effect December 31, 2024 2: 34pm Melena December 31, 2024 2:34p m COPD (chronic obstructive pulmonary dise [facility]) March 18, 2025 11:48am Chief Complaint Admit Date UPPER GI BLEED December 31, 2024 2:34p m UPPER GI BLEED December 31, 2024 7:25p m UPPER GI BLEED January 01, 2025 9:18a m UPPER GI BLEED January 01, 2025 3:19p m UPPER GI BLEED January 02, 2025 7:35a m UPPER GI BLEED January 02, 2025 1:21p m UPPER GI BLEED January 03, 2025 11:38 am UPPER GI BLEED January 04, 2025 9:41a m 6 M F/U March 18, 2025 11 :48am MED QUESTION April 17, 2025 8:00am Reason for Visit Admit Date Chronic anticoagulation December 31, 2024 2 :34pm History of atrial fibrillation December 31, 2024 2:34pm Acute anemia December 31, 2024 2:34p m Exertional dyspnea December 31, 2024 2:34p m Generalized weakness December 31, 2024 2:34 pm GIB (gastrointestinal bleeding) December 2:34pm Medication side effect December 31, 2024 2: 34pm Melena December 31, 2024 2:34p m Hoarseness March 18, 2025 11 :48am COPD (chronic obstructive pulmonary dise [facility]) March 18, 2025 11:48am History of atrial fibrillation April 17, 2025 8:00am Essential hypertension April 17, 8:00am Medications Administered Section Inactive Administered Medications - up to 3 most recent administrations Medication Order MAR Action Action Date Dose Rate Site diphenhydrAMINE 12.5-50 mg injection (BENADRYL) 12.5-50 mg, INTRAVENOUS, DIRECTED, Starting on Tue11/02/22 at 1200, Until Tue11/02/22 at 1559, DOSING DIRECTED BY PHYSICIAN FOR PROCEDURAL SEDATION ONLY, Intraprocedure Given 11/02/2022 12:05 PM EDT 50 mg fentaNYL 50 mcg/mL 25-100 mcg injection (SUBLIMAZE) 25-100 mcg, INTRAVENOUS, DIRECTED, Starting on Tue11/02/22 at 1200, Until Tue11/02/22 at 1559, DOSING DIRECTED BY PHYSICIAN FOR PROCEDURAL SEDATION ONLY, Intraprocedure Given 11/02/2022 12:00 PM EDT 25 mcg Given by LIP 11/02/2022 11:51 AM EDT 25 mcg Given by LIP 11/02/2022 11:49 AM EDT 50 mcg lactated ringers iv infusion 30 mL/hr, INTRAVENOUS, CONTINUOUS, Starting on Tue11/02/22 at 1130, Until Tue11/02/22 at 1245, Preprocedure New Bag/Syringe/Bottle 11/02/2022 11:08 AM EDT 30 mL/hr 30 mL/hr Hand, Right midazolam 1-5 mg injection (VERSED) 1-5 mg, INTRAVENOUS, DIRECTED, Starting on Tue11/02/22 at 1200, Until Tue11/02/22 at 1559, DOSING DIRECTED BY PHYSICIAN FOR PROCEDURAL SEDATION ONLY, Intraprocedure Given 11/02/2022 11:59 AM EDT 1 mg Given by LIP 11/02/2022 11:51 AM EDT 1 mg Given by LIP 11/02/2022 11:49 AM EDT 3 mg Additional Source Comments INFORMATION SOURCE (unrecogn ized section and content) DATE CREATED AUTHOR 11/09/2018 [facility] ([place]) DATE CREATED AUTHOR AUTHOR'S ORGANIZ ATION 04/03/2025 [facility] DATE CREATED AUTHOR AUTHOR'S ORGANIZ ATION 04/15/2025 [facility] Source Comments (unrecognize d section and content) In the event this informatio n is protected by the Federal Confidentiality of Alcohol and Drug Abuse Patient Records regulations: The Federal rules restrict any use of the information to criminally investigate or prosecute any alcohol or drug abuse patient.TrihealthIn the event this information is protected by the Federal Confidentiality of Alcohol and Drug Abuse Patient Records regulations: The Federal rules restrict any use of the information to criminally investigate or prosecute any alcohol or drug abuse patient.TrihealthIn the event this information is protected by the Federal Confidentiality of Alcohol and Drug Abuse Patient Records regulations: The Federal rules restrict any use of the information to criminally investigate or prosecute any alcohol or drug abuse patient.TrihealthIn the event this information is protected by the Federal Confidentiality of Alcohol and Drug Abuse Patient Records regulations: The Federal rules restrict any use of the information to criminally investigate or prosecute any alcohol or drug abuse patient.TrihealthIn the event this information is protected by the Federal Confidentiality of Alcohol and Drug Abuse Patient Records regulations: The Federal rules restrict any use of the information to criminally investigate or prosecute any alcohol or drug abuse patient.TrihealthIn the event this information is protected by the Federal Confidentiality of Alcohol and Drug Abuse Patient Records regulations: The Federal rules restrict any use of the information to criminally investigate or prosecute any alcohol or drug abuse patient.TrihealthIn the event this information is protected by the Federal Confidentiality of Alcohol and Drug Abuse Patient Records regulations: The Federal rules restrict any use of the information to criminally investigate or prosecute any alcohol or drug abuse patient.TrihealthIn the event this information is protected by the Federal Confidentiality of Alcohol and Drug Abuse Patient Records regulations: The Federal rules restrict any use of the information to criminally investigate or prosecute any alcohol or drug abuse patient.TrihealthIn the event this information is protected by the Federal Confidentiality of Alcohol and Drug Abuse Patient Records regulations: The Federal rules restrict any use of the information to criminally investigate or prosecute any alcohol or drug abuse patient.TrihealthIn the event this information is protected by the Federal Confidentiality of Alcohol and Drug Abuse Patient Records regulations: The Federal rules restrict any use of the information to criminally investigate or prosecute any alcohol or drug abuse patient.TrihealthIn the event this information is protected by the Federal Confidentiality of Alcohol and Drug Abuse Patient Records regulations: The Federal rules restrict any use of the information to criminally investigate or prosecute any alcohol or drug abuse patient.TrihealthIn the event this information is protected by the Federal Confidentiality of Alcohol and Drug Abuse Patient Records regulations: The Federal rules restrict any use of the information to criminally investigate or prosecute any alcohol or drug abuse patient.TrihealthIn the event this information is protected by the Federal Confidentiality of Alcohol and Drug Abuse Patient Records regulations: The Federal rules restrict any use of the information to criminally investigate or prosecute any alcohol or drug abuse patient.TrihealthIn the event this information is protected by the Federal Confidentiality of Alcohol and Drug Abuse Patient Records regulations: The Federal rules restrict any use of the information to criminally investigate or prosecute any alcohol or drug abuse patient.TrihealthIn the event this information is protected by the Federal Confidentiality of Alcohol and Drug Abuse Patient Records regulations: The Federal rules restrict any use of the information to criminally investigate or prosecute any alcohol or drug abuse patient.TrihealthIn the event this information is protected by the Federal Confidentiality of Alcohol and Drug Abuse Patient Records regulations: The Federal rules restrict any use of the information to criminally investigate or prosecute any alcohol or drug abuse patient.TrihealthIn the event this information is protected by the Federal Confidentiality of Alcohol and Drug Abuse Patient Records regulations: The Federal rules restrict any use of the information to criminally investigate or prosecute any alcohol or drug abuse patient.TrihealthIn the event this information is protected by the Federal Confidentiality of Alcohol and Drug Abuse Patient Records regulations: The Federal rules restrict any use of the information to criminally investigate or prosecute any alcohol or drug abuse patient.TrihealthIn the event this information is protected by the Federal Confidentiality of Alcohol and Drug Abuse Patient Records regulations: The Federal rules restrict any use of the information to criminally investigate or prosecute any alcohol or drug abuse patient.TrihealthIn the event this information is protected by the Federal Confidentiality of Alcohol and Drug Abuse Patient Records regulations: The Federal rules restrict any use of the information to criminally investigate or prosecute any alcohol or drug abuse patient.[facility]healthIn the event this information is protected by the Federal Confidentiality of Alcohol and Drug Abuse Patient Records regulations: The Federal rules restrict any use of the information to criminally investigate or prosecute any alcohol or drug abuse patient.[facility]healthIn the event this information is protected by the Federal Confidentiality of Alcohol and Drug Abuse Patient Records regulations: The Federal rules restrict any use of the information to criminally investigate or prosecute any alcohol or drug abuse patient.TrihealthIn the event this information is protected by the Federal Confidentiality of Alcohol and Drug Abuse Patient Records regulations: The Federal rules restrict any use of the information to criminally investigate or prosecute any alcohol or drug abuse patient.TrihealthIn the event this information is protected by the Federal Confidentiality of Alcohol and Drug Abuse Patient Records regulations: The Federal rules restrict any use of the information to criminally investigate or prosecute any alcohol or drug abuse patient.TrihealthIn the event this information is protected by the Federal Confidentiality of Alcohol and Drug Abuse Patient Records regulations: The Federal rules restrict any use of the information to criminally investigate or prosecute any alcohol or drug abuse patient.TrihealthIn the event this information is protected by the Federal Confidentiality of Alcohol and Drug Abuse Patient Records regulations: The Federal rules restrict any use of the information to criminally investigate or prosecute any alcohol or drug abuse patient.TrihealthIn the event this information is protected by the Federal Confidentiality of Alcohol and Drug Abuse Patient Records regulations: The Federal rules restrict any use of the information to criminally investigate or prosecute any alcohol or drug abuse patient.TrihealthIn the event this information is protected by the Federal Confidentiality of Alcohol and Drug Abuse Patient Records regulations: The Federal rules restrict any use of the information to criminally investigate or prosecute any alcohol or drug abuse patient.TrihealthIn the event this information is protected by the Federal Confidentiality of Alcohol and Drug Abuse Patient Records regulations: The Federal rules restrict any use of the information to criminally investigate or prosecute any alcohol or drug abuse patient.TrihealthIn the event this information is protected by the Federal Confidentiality of Alcohol and Drug Abuse Patient Records regulations: The Federal rules restrict any use of the information to criminally investigate or prosecute any alcohol or drug abuse patient.TrihealthIn the event this information is protected by the Federal Confidentiality of Alcohol and Drug Abuse Patient Records regulations: The Federal rules restrict any use of the information to criminally investigate or prosecute any alcohol or drug abuse patient.TrihealthIn the event this information is protected by the Federal Confidentiality of Alcohol and Drug Abuse Patient Records regulations: The Federal rules restrict any use of the information to criminally investigate or prosecute any alcohol or drug abuse patient.[facility]healthIn the event this information is protected by the Federal Confidentiality of Alcohol and Drug Abuse Patient Records regulations: The Federal rules restrict any use of the information to criminally investigate or prosecute any alcohol or drug abuse patient.[facility]healthIn the event this information is protected by the Federal Confidentiality of Alcohol and Drug Abuse Patient Records regulations: The Federal rules restrict any use of the information to criminally investigate or prosecute any alcohol or drug abuse patient.TrihealthIn the event this information is protected by the Federal Confidentiality of Alcohol and Drug Abuse Patient Records regulations: The Federal rules restrict any use of the information to criminally investigate or prosecute any alcohol or drug abuse patient.TrihealthIn the event this information is protected by the Federal Confidentiality of Alcohol and Drug Abuse Patient Records regulations: The Federal rules restrict any use of the information to criminally investigate or prosecute any alcohol or drug abuse patient.TrihealthIn the event this information is protected by the Federal Confidentiality of Alcohol and Drug Abuse Patient Records regulations: The Federal rules restrict any use of the information to criminally investigate or prosecute any alcohol or drug abuse patient.TrihealthIn the event this information is protected by the Federal Confidentiality of Alcohol and Drug Abuse Patient Records regulations: The Federal rules restrict any use of the information to criminally investigate or prosecute any alcohol or drug abuse patient.[facility] Reason for Visit (unrecogniz ed section and content) Reason Comments F/U 6 months Reason Comments Acute Visit scratch on back of l eg, leaking x 1 day Reason Comments Forms Reason Comments Consult Reason Comments Consult Colon cancer screeni ng Specialty Diagnoses / Procedures Referred By Contac t Referred To Contact General Surgery Diagnoses Colon cancer screening Procedures CONSULT TO GENERAL SURGERY OFFICE/OUTPATIENT [facility] 60-74 MINUTES Mindy Emerson APRN.SENIOR RECRUITMENT CONSULTANT [address] [place] [address] Referral ID Status Reason Start Date Expiration Date V isits Requested Visits Authorized [id number] Closed PCP Requested Referral 09/06/2022 09/06/2023 1 1 Reason Comments Cough Chest congestion x 1 week Reason Comments Results Reason Onset Date Comments Population Health Navigation Outreach 11/02/2022 HCC GAP Reason Comments Referral Request Reason Comments Refill Request Specialty Diagnoses / Procedures Referred By Contvonda t Referred To Contact [facility] Diagnoses Personal history of colonic polyps Procedures COLONOSCOPY FLX W/REMOVAL OF FOREIGN BODY(S) [facility] [address] [place] [address] Referral ID Status Reason Start Date Expiration Date Visits Re quested Visits Authorized [id number] 1 1 Reason Comments Edema LLE, Swelling, redne ss, warmth, painful, cut on branch on Tuesday Reason Comments Recheck Reason Comments Follow Up cellulitis L leg Reason Comments Follow Up cellulitis Reason Comments Follow Up Reason Onset Date Comments Refill Request 01/16/2024 Reason Comments Medicare Wellness Exam Reason Comments Recheck blood pressure Reason Comments Chest Congestion cough x 5 days Reason Comments Hospital F/U Reason Onset Date Comments Palpitations 01/18/2025 Reason Comments requesting medication that is Reason Onset Date Comments Refill Request 01/18/2025 Reason Comments Orders Reason Comments leg wound Right lower leg woun d x 3 days Reason Onset Date Comments Refill Request 03/26/2025 Reason Comments Medicare Wellness Exam Care Teams (unrecognized sec tion and content) Fisher Eel Relationship Specialty Start Date End Date Marika Park MD [address] [place] [id number] PCP - General 01/18/06 Fisher Eel Relationship Specialty Start Date End Date Marika Park MD [address] [place] [id number] PCP - General 01/18/06 Fisher Eel Relationship Specialty Start Date End Date Marika Park MD [address] [place] [id number] PCP - General 01/18/06 Fisher Eel Relationship Specialty Start Date End Date Marika Park MD [address] [place] [address] [place] [address] PCP - General 01/18/06 Fisher Eel Relationship Specialty Start Date End Date Marika Park MD [address] [place] [id number] PCP - General 01/18/06 Fisher Eel Relationship Specialty Start Date End Date Marika Park MD [address] [place] [address] PCP - General 01/18/06 Fisher Eel Relationship Specialty Start Date End Date Marika Park MD [address] [place] [address] PCP - General 01/18/06 Fisher Eel Relationship Specialty Start Date End Date Marika Park MD [address] [place] [address] PCP - General 01/18/06 Fisher Eel Relationship Specialty Start Date End Date Marika Park MD [address] [place] [address] PCP - General 01/18/06 Team Status: Active Member Role Status Dates Dr. Marika Park MD Family Provider Active Dr. Marika Park MD Primary Care Provider Active Team Status: Inactive Member Role Status Dates Dr. Marika Park MD Primary Care Provider, Referr ing Provider Active Dr. Janes Hicks MD Attending Provider Active Team Status: Active Member Role Status Dates Dr. Marika Park MD Primary Care Provider Active Dr. Janes Hicks MD Attending Provider , Referring Provider, Other Provider Active Team Status: Inactive Member Role Status Dates Dr. Marika Park MD Primary Care Provider Active Dr. Janes Hicks MD Attending Provider, Referring Pr ovider Active Fisher Eel Relationship Specialty Start Date End Date Markia Park MD [address] [place] [address] PCP - General 01/18/06 Fisher Eel Relationship Specialty Start Date End Date Marika Park MD [address] [place] [address] PCP - General 01/18/06 Fisher Eel Relationship Specialty Start Date End Date Marika Park MD [address] [facility] [place] [address] PCP - General 01/18/06 Fisher Eel Relationship Specialty Start Date End Date Marika Park MD [address] [facility] [place] [address] PCP - General 01/18/06 Fisher Eel Relationship Specialty Start Date End Date Marika Park MD [address] [place] [address] PCP - General 01/18/06 Fisher Eel Relationship Specialty Start Date End Date Marika Park MD [address] [place] [address] PCP - General 01/18/06 Fisher Eel Relationship Specialty Start Date End Date Marika Park MD [address] [place] [address] PCP - General 01/18/06 Fisher Eel Relationship Specialty Start Date End Date Marika Park MD [address] [facility] [place] [address] PCP - General 01/18/06 Fisher Eel Relationship Specialty Start Date End Date Marika Park MD [address] [facility] [place] [address] PCP - General 01/18/06 Fisher Eel Relationship Specialty Start Date End Date Marika Park MD [address] [place] [address] PCP - General 01/18/06 Fisher Eel Relationship Specialty Start Date End Date Marika Park MD [address] [place] [address] PCP - General 01/18/06 Fisher Eel Relationship Specialty Start Date End Date Marika Park MD [address] [place] [address] PCP - General 01/18/06 Team Status: Active Member Role Status Dates Dr. Marika Park MD Primary Care Provider Active Team Status: Inactive Member Role Status Dates Dr. Marika Park MD Primary Care Provider Active Start: August 15, 2024 End: August 15, 2024 Dr. Lemuel Willett DO Attending Provider Active Start: August 15, 2024 End: August 15, 2024 Dr. Lemuel Willett DO Emergency Provider Active Start: August 15, 2024 End: August 15, 2024 Team Status: Inactive Member Role Status Dates Dr. Marika Park MD Primary Care Provider Active Start: September 06, 2024 End: September 06, 2024 Dr. Marika Park MD Referring Provider Active Start: September 06, 2024 End: September 06, 2024 Toby Pinto GROVE WORKER, GROVE WORKER-C Attending Provider Active S tart: September 06, 2024 End: September 06, 2024 Team Status: Inactive Member Role Status Dates Dr. Marika Park MD Primary Care Provider Active Start: September 18, 2024 End: September 18, 2024 Dr. Marika Park MD Referring Provider Active Start: September 18, 2024 End: September 18, 2024 Jailyn Johnson GROVE WORKER, GROVE WORKER-C Attending Provider Active Start: September 18, 2024 End: September 18, 2024 Team Status: Inactive Member Role Status Dates Dr. Marika Park MD Primary Care Provider Active Start: October 25, 2024 End: October 25, 2024 Susannah Britt PA, PA Attending Provider Active Start: October 25, 2024 End: October 25, 2024 Susannah Britt PA, PA Referring Provider Active Start: October 25, 2024 End: October 25, 2024 Team Status: Active Member Role Status Dates Dr. Marika Park MD Primary Care Provider Active Start: October 25, 2024 Dr. Mamadou Manrique MD Attending Provider Active S tart: October 25, 2024 Susannah SCOTT, PA Referring Provider Active Start: October 25, 2024 Fisher Eel Relationship Specialty Start Date End Date Marika Park MD [address] [facility] [place] [address] PCP - General 01/18/06 Guillermo Alcantara AUTOMATED ACCESS SYSTEMS TECHNICIAN.IS CONSULTANT [address] [facility] [place] [address] Solar Photovoltaic Systems Engineer Internal Medicine 07/09/24 Mindy Emerson APRN.SENIOR RECRUITMENT CONSULTANT [address] [facility] [place] [address] Solar Photovoltaic Systems Engineer Internal Medicine 10/23/24 Team Status: Active Member Role Status Dates Dr. Marika Park MD Primary Care Provider Active Start: December 31, 2024 Dr. Trenton Lenz MD Emergency Provider Active S tart: December 31, 2024 Dr. Myranda Shirley DO Admit Provider Active Start : December 31, 2024 Dr. Myranda Shirley , Attending Provider Active S tart: December 31, 2024 Fisher Eel Relationship Specialty Start Date End Date Marika Park MD [address] [facility] [place] [address] PCP - General 01/18/06 Mindy Emerson APRN.SENIOR RECRUITMENT CONSULTANT [address] [facility] [place] [address] Solar Photovoltaic Systems Engineer Internal Medicine 10/23/24 Guillermo Alcantara AUTOMATED ACCESS SYSTEMS TECHNICIAN.IS CONSULTANT [address] [facility] [place] [address] [facility] Internal Medicine 12/19/24 Team Status: Inactive Member Role Status Dates Dr. Marika Park MD Primary Care Provider Active Start: December 31, 2024 End: January 04, 2025 Dr. Trenton Lenz MD Emergency Provider Active S tart: December 31, 2024 End: January 04, 2025 Dr. Myranda Shirley DO Admit Provider Active Start : December 31, 2024 End: January 04, 2025 Dr. Myranda Shirley DO Other Provider Active Start : December 31, 2024 End: January 04, 2025 Dr. Carrillo Strong MD Attending Provider Active Start: December 31, 2024 End: January 04, 2025 Team Status: Active Member Role Status Dates Dr. Marika Park MD Primary Care Provider Active Start: December 31, 2024 Dr. Trenton Lenz MD Emergency Provider Active S tart: December 31, 2024 Dr. Myranda Shirley DO Admit Provider Active Start : December 31, 2024 Dr. Myranda Shirley DO Other Provider Active Start : December 31, 2024 Dr. Carrillo Strong MD Other Provider Active Star t: December 31, 2024 Dr. Austin Jaimes DO Attending Provider Active Start: December 31, 2024 Team Status: Active Member Role Status Dates Dr. Marika Park MD Primary Care Provider Active Start: January 01, 2025 Dr. Trenton Lenz MD Emergency Provider Active S tart: January 01, 2025 Dr. Myranda Shirley DO Admit Provider Active Start : January 01, 2025 Dr. Myranda Shirley DO Other Provider Active Start : January 01, 2025 Dr. Carrillo Strong MD Attending Provider Active Start: January 01, 2025 Dr. Carrillo Strong MD Other Provider Active Star t: January 01, 2025 Team Status: Active Member Role Status Dates Dr. Marika Park MD Primary Care Provider Active Start: January 01, 2025 Dr. Trenton Lenz MD Emergency Provider Active S tart: January 01, 2025 Dr. Myranda Shirley DO Admit Provider Active Start : January 01, 2025 Dr. Myranda Shirley DO Other Provider Active Start : January 01, 2025 Dr. Carrillo Strong MD Other Provider Active Star t: January 01, 2025 Dr. Austin Jaimes DO Attending Provider Active Start: January 01, 2025 Team Status: Active Member Role Status Dates Dr. Marika Park MD Primary Care Provider Active Start: January 02, 2025 Dr. Trenton Lenz MD Emergency Provider Active S tart: January 02, 2025 Dr. Myranda Shirley DO Admit Provider Active Start : January 02, 2025 Dr. Myranda Shirley DO Other Provider Active Start : January 02, 2025 Dr. Carrillo Strong MD Attending Provider Active Start: January 02, 2025 Dr. Carrillo Strong MD Other Provider Active Star t: January 02, 2025 Team Status: Active Member Role Status Dates Dr. Marika Park MD Primary Care Provider Active Start: January 02, 2025 Dr. Trenton Lenz MD Emergency Provider Active S tart: January 02, 2025 Dr. Myranda Shirley DO Admit Provider Active Start : January 02, 2025 Dr. Myranda Shirley DO Other Provider Active Start : January 02, 2025 Dr. Carrillo Strong MD Other Provider Active Star t: January 02, 2025 Dr. Austin Jaimes DO Attending Provider Active Start: January 02, 2025 Team Status: Active Member Role Status Dates Dr. Marika Park MD Primary Care Provider Active Start: January 03, 2025 Dr. Trenton Lenz MD Emergency Provider Active S tart: January 03, 2025 Dr. Myranda Shirley DO Admit Provider Active Start : January 03, 2025 Dr. Myranda Shirley DO Other Provider Active Start : January 03, 2025 Dr. Carrillo Strong MD Attending Provider Active Start: January 03, 2025 Dr. Carrillo Strong MD Other Provider Active Star t: January 03, 2025 Team Status: Active Member Role Status Dates Dr. Marika Park MD Primary Care Provider Active Start: January 04, 2025 Dr. Trenton Lenz MD Emergency Provider Active S tart: January 04, 2025 Dr. Myranda Shirley DO Admit Provider Active Start : January 04, 2025 Dr. Myranda Shirley DO Other Provider Active Start : January 04, 2025 Dr. Carrillo Strong MD Attending Provider Active Start: January 04, 2025 Dr. Carrillo Strong MD Other Provider Active Star t: January 04, 2025 Fisher Eel Relationship Specialty Start Date End Date Marika Park MD [address] [facility] [place] [address] PCP - General 01/18/06 Mindy Emerson AUTOMATED ACCESS SYSTEMS TECHNICIAN.SENIOR RECRUITMENT CONSULTANT [address] [facility] [place] [address] Solar Photovoltaic Systems Engineer Internal Medicine 10/23/24 Guillermo Alcantara, AUTOMATED ACCESS SYSTEMS TECHNICIAN.IS CONSULTANT [address] [facility] [place] [address] Solar Photovoltaic Systems Engineer Internal Medicine 12/19/24 Fisher Eel Relationship Specialty Start Date End Date Marika Park MD [address] [facility] [place] [address] PCP - General 01/18/06 Mindy Emerson AUTOMATED ACCESS SYSTEMS TECHNICIAN.SENIOR RECRUITMENT CONSULTANT [address] [facility] [place] [address] Solar Photovoltaic Systems Engineer Internal Medicine 10/23/24 Guillermo Alcantara, AUTOMATED ACCESS SYSTEMS TECHNICIAN.IS CONSULTANT [address] [facility] [place] [address] Solar Photovoltaic Systems Engineer Internal Medicine 12/19/24 Fisher Eel Relationship Specialty Start Date End Date Marika Park MD [address] [facility] [place] [address] PCP - General 01/18/06 Mindy Emerson AUTOMATED ACCESS SYSTEMS TECHNICIAN.SENIOR RECRUITMENT CONSULTANT [address] [facility] [place] [address] Solar Photovoltaic Systems Engineer Internal Medicine 10/23/24 Guillermo Alcantara, AUTOMATED ACCESS SYSTEMS TECHNICIAN.IS CONSULTANT [address] [place] [address] [facility] Internal Medicine 12/19/24 Team Status: Active Member Role/Relationship Status Dates Dr. Marika Park MD Primary Care Provider Active Team Status: Inactive Member Role/Relationship Status Dates Dr. Marika Park MD Primary Care Provider Active Start: December 31, 2024 End: January 04, 2025 Dr. Trenton Lenz MD Emergency Provider Active S tart: December 31, 2024 End: January 04, 2025 Dr. Myranda Shirley DO Admit Provider Active Start : December 31, 2024 End: January 04, 2025 Dr. Myranda Shirley DO Other Provider Active Start : December 31, 2024 End: January 04, 2025 Dr. Carrillo Strong MD Attending Provider Active Start: December 31, 2024 End: January 04, 2025 Team Status: Active Member Role/Relationship Status Dates Dr. Marika Park MD Primary Care Provider Active Start: December 31, 2024 Dr. Trenton Lenz MD Emergency Provider Active S tart: December 31, 2024 Dr. Myranda Shirley DO Admit Provider Active Start : December 31, 2024 Dr. Myranda Shirley DO Other Provider Active Start : December 31, 2024 Dr. Carrillo Strong MD Referring Provider Active Start: December 31, 2024 Dr. Carrillo Strong MD Other Provider Active Star t: December 31, 2024 Dr. Austin Jaimes DO Attending Provider Active Start: December 31, 2024 Team Status: Active Member Role/Relationship Status Dates Dr. Marika Park MD Primary Care Provider Active Start: January 01, 2025 Dr. Trenton Lenz MD Emergency Provider Active S tart: January 01, 2025 Dr. Myranda Shirley DO Admit Provider Active Start : January 01, 2025 Dr. Myranda Shirley DO Other Provider Active Start : January 01, 2025 Dr. Carrillo Strong MD Attending Provider Active Start: January 01, 2025 Dr. Carrillo Strong MD Other Provider Active Star t: January 01, 2025 Team Status: Active Member Role/Relationship Status Dates Dr. Marika Park MD Primary Care Provider Active Start: January 01, 2025 Dr. Trenton Lenz MD Emergency Provider Active S tart: January 01, 2025 Dr. Myranda Shirley DO Admit Provider Active Start : January 01, 2025 Dr. Myranda Shirley DO Other Provider Active Start : January 01, 2025 Dr. Carrillo Strong MD Referring Provider Active Start: January 01, 2025 Dr. Carrillo Strong MD Other Provider Active Star t: January 01, 2025 Dr. Austin Jaimes DO Attending Provider Active Start: January 01, 2025 Team Status: Active Member Role/Relationship Status Dates Dr. Marika Park MD Primary Care Provider Active Start: January 02, 2025 Dr. Trenton Lenz MD Emergency Provider Active S tart: January 02, 2025 Dr. Myranda Shirley DO Admit Provider Active Start : January 02, 2025 Dr. Myranda Shirley DO Other Provider Active Start : January 02, 2025 Dr. Carrillo Strong MD Attending Provider Active Start: January 02, 2025 Dr. Carrillo Strong MD Other Provider Active Star t: January 02, 2025 Team Status: Active Member Role/Relationship Status Dates Dr. Marika Park MD Primary Care Provider Active Start: January 02, 2025 Dr. Trenton Lenz MD Emergency Provider Active S tart: January 02, 2025 Dr. Myranda Shirley DO Admit Provider Active Start : January 02, 2025 Dr. Myranda Shirley DO Other Provider Active Start : January 02, 2025 Dr. Carrillo Strong MD Referring Provider Active Start: January 02, 2025 Dr. Carrillo Strong MD Other Provider Active Star t: January 02, 2025 Dr. Austin Jaimes DO Attending Provider Active Start: January 02, 2025 Team Status: Active Member Role/Relationship Status Dates Dr. Marika Park MD Primary Care Provider Active Start: January 03, 2025 Dr. Trenton Lenz MD Emergency Provider Active S tart: January 03, 2025 Dr. Myranda Shirley DO Admit Provider Active Start : January 03, 2025 Dr. Myranda Shirley DO Other Provider Active Start : January 03, 2025 Dr. Carrillo Strong MD Attending Provider Active Start: January 03, 2025 Dr. Carrillo Strong MD Other Provider Active Star t: January 03, 2025 Team Status: Active Member Role/Relationship Status Dates Dr. Marika Park MD Primary Care Provider Active Start: January 04, 2025 Dr. Trenton Lenz MD Emergency Provider Active S tart: January 04, 2025 Dr. Myranda Shirley DO Admit Provider Active Start : January 04, 2025 Dr. Myranda Shirley DO Other Provider Active Start : January 04, 2025 Dr. Carrillo Strong MD Attending Provider Active Start: January 04, 2025 Dr. Carrillo Strong MD Other Provider Active Star t: January 04, 2025 Team Status: Inactive Member Role/Relationship Status Dates Dr. Marika Park MD Primary Care Provider Active Start: January 29, 2025 Dr. Elizabeth Reinoso MD Attending Provider Active Start: January 29, 2025 Team Status: Inactive Member Role/Relationship Status Dates Dr. Marika Park MD Primary Care Provider Active Start: March 18, 2025 End: March 18, 2025 Dr. Marika Park MD Referring Provider Active Start: March 18, 2025 End: March 18, 2025 Jailyn Johnson GROVE WORKER, GROVE WORKER-C Attending Provider Active Start: March 18, 2025 End: March 18, 2025 Fisher Eel Relationship Specialty Start Date End Date Marika Park MD [address] [place], [place] [id number] PCP - General 01/18/06 Mindy Emerson, AUTOMATED ACCESS SYSTEMS TECHNICIAN.SENIOR RECRUITMENT CONSULTANT [address] [place], [place] [id number] Solar Photovoltaic Systems Engineer Internal Medicine 10/23/24 Guillermo Alcantara, AUTOMATED ACCESS SYSTEMS TECHNICIAN.IS CONSULTANT [address] [place], [place] [id number] Solar Photovoltaic Systems Engineer Internal Medicine 12/19/24 Fisher Eel Relationship Specialty Start Date End Date Marika Park MD [address] [place], [place] [id number] PCP - General 01/18/06 Mindy Emerson AUTOMATED ACCESS SYSTEMS TECHNICIAN.SENIOR RECRUITMENT CONSULTANT [address] [place] [address] Solar Photovoltaic Systems Engineer Internal Medicine 10/23/24 Guillermo Alcantara, AUTOMATED ACCESS SYSTEMS TECHNICIAN.IS CONSULTANT [address] [place] [address] Solar Photovoltaic Systems Engineer Internal Medicine 12/19/24 Fisher Eel Relationship Specialty Start Date End Date Marika Park MD [address] [place] [address] PCP - General 01/18/06 Mindy Emerson AUTOMATED ACCESS SYSTEMS TECHNICIAN.SENIOR RECRUITMENT CONSULTANT [address] [place] [address] Solar Photovoltaic Systems Engineer Internal Medicine 10/23/24 Guillermo Alcantara, AUTOMATED ACCESS SYSTEMS TECHNICIAN.IS CONSULTANT [address] [place] [address] [facility] Internal Medicine 12/19/24 Fisher Eel Relationship Specialty Start Date End Date Marika Park MD [address] [place] [address] PCP - General 01/18/06 Mindy Emerson AUTOMATED ACCESS SYSTEMS TECHNICIAN.SENIOR RECRUITMENT CONSULTANT [address] [place] [address] Solar Photovoltaic Systems Engineer Internal Medicine 10/23/24 Guillermo Alcantara, AUTOMATED ACCESS SYSTEMS TECHNICIAN.IS CONSULTANT [address] [place] [address] [facility] Internal Medicine 12/19/24 Team Status: Active Member Role/Relationship Status Dates Dr. Marika Park MD Primary care physician Active Team Status: Inactive Member Role/Relationship Status Dates Dr. Marika Park MD Primary care physician Active Start: December 31, 2024 End: January 04, 2025 Dr. Trenton Lenz MD Emergency Department Physician Ac tive Start: December 31, 2024 End: January 04, 2025 Dr. Myranda Shirley DO Admitting physician Active Start: December 31, 2024 End: January 04, 2025 Dr. Myranda Shirley DO Nurse Practitioner Active S tart: December 31, 2024 End: January 04, 2025 Dr. Carrillo Strong MD Attending physician Active Start: December 31, 2024 End: January 04, 2025 Team Status: Active Member Role/Relationship Status Dates Dr. Marika Park MD Primary care physician Active Start: December 31, 2024 Dr. Trenton Lenz MD Emergency Department Physician Ac tive Start: December 31, 2024 Dr. Myranda Shirley DO Admitting physician Active Start: December 31, 2024 Dr. Myranda Shirley DO Nurse Practitioner Active S tart: December 31, 2024 Dr. Carrillo Strong MD Referring Provider Active Start: December 31, 2024 Dr. Carrillo Strong MD Nurse Practitioner Active Start: December 31, 2024 Dr. Austin Jaimes DO Attending physician Active Start: December 31, 2024 Team Status: Active Member Role/Relationship Status Dates Dr. Marika Park MD Primary care physician Active Start: January 01, 2025 Dr. Trenton Lenz MD Emergency Department Physician Ac tive Start: January 01, 2025 Dr. Myranda Shirley DO Admitting physician Active Start: January 01, 2025 Dr. Myranda Shirley DO Nurse Practitioner Active S tart: January 01, 2025 Dr. Carrillo Strong MD Attending physician Active Start: January 01, 2025 Dr. Carrillo Strong MD Nurse Practitioner Active Start: January 01, 2025 Team Status: Active Member Role/Relationship Status Dates Dr. Marika Park MD Primary care physician Active Start: January 01, 2025 Dr. Trenton Lenz MD Emergency Department Physician Ac tive Start: January 01, 2025 Dr. Myranda Shirley DO Admitting physician Active Start: January 01, 2025 Dr. Myranda Shirley DO Nurse Practitioner Active S tart: January 01, 2025 Dr. Carrillo Strong MD Referring Provider Active Start: January 01, 2025 Dr. Carrillo Strong MD Nurse Practitioner Active Start: January 01, 2025 Dr. Austin Jaimes DO Attending physician Active Start: January 01, 2025 Team Status: Active Member Role/Relationship Status Dates Dr. Marika Park MD Primary care physician Active Start: January 02, 2025 Dr. Trenton Lenz MD Emergency Department Physician Ac tive Start: January 02, 2025 Dr. Myranda Shirley DO Admitting physician Active Start: January 02, 2025 Dr. Myranda Shirley DO Nurse Practitioner Active S tart: January 02, 2025 Dr. Carrillo Strong MD Attending physician Active Start: January 02, 2025 Dr. Carrillo Strong MD Nurse Practitioner Active Start: January 02, 2025 Team Status: Active Member Role/Relationship Status Dates Dr. Marika Park MD Primary care physician Active Start: January 02, 2025 Dr. Trenton Lenz MD Emergency Department Physician Ac tive Start: January 02, 2025 Dr. Myranda Shirley DO Admitting physician Active Start: January 02, 2025 Dr. Myranda Shirley DO Nurse Practitioner Active S tart: January 02, 2025 Dr. Carrillo Strong MD Referring Provider Active Start: January 02, 2025 Dr. Carrillo Strong MD Nurse Practitioner Active Start: January 02, 2025 Dr. Austin Jaimes DO Attending physician Active Start: January 02, 2025 Team Status: Active Member Role/Relationship Status Dates Dr. Marika Park MD Primary care physician Active Start: January 03, 2025 Dr. Trenton Lenz MD Emergency Department Physician Ac tive Start: January 03, 2025 Dr. Myranda Shirley DO Admitting physician Active Start: January 03, 2025 Dr. Myranda Shirley DO Nurse Practitioner Active S tart: January 03, 2025 Dr. Carrillo Strong MD Attending physician Active Start: January 03, 2025 Dr. Carrillo Strong MD Nurse Practitioner Active Start: January 03, 2025 Team Status: Active Member Role/Relationship Status Dates Dr. Marika Park MD Primary care physician Active Start: January 04, 2025 Dr. Trenton Lenz MD Emergency Department Physician Ac tive Start: January 04, 2025 Dr. Myranda Shirley DO Admitting physician Active Start: January 04, 2025 Dr. Myranda Shirley DO Nurse Practitioner Active S tart: January 04, 2025 Dr. Carrillo Strong MD Attending physician Active Start: January 04, 2025 Dr. Carrillo Strong MD Nurse Practitioner Active Start: January 04, 2025 Team Status: Inactive Member Role/Relationship Status Dates Dr. Marika Park MD Primary care physician Active Start: January 29, 2025 Dr. Elizabeth Reinoso MD Attending physician Active Start: January 29, 2025 Team Status: Inactive Member Role/Relationship Status Dates Dr. Marika Park MD Primary care physician Active Start: March 18, 2025 End: March 18, 2025 Dr. Marika Park MD Referring Provider Active Start: March 18, 2025 End: March 18, 2025 Jailyn Johnson GROVE WORKER, GROVE WORKER-C Attending physician Active Start: March 18, 2025 End: March 18, 2025 Team Status: Inactive Member Role/Relationship Status Dates Dr. Marika Park MD Primary care physician Active Start: April 17, 2025 End: April 17, 2025 Dr. Marika Park MD Referring Provider Active Start: April 17, 2025 End: April 17, 2025 TYLER Diane Attending physician Active S tart: April 17, 2025 End: April 17, 2025 Goals (unrecognized section and content) Goals may be documented in a n alternate sectionGoals may be documented in an alternate sectionGoals may be documented in an alternate section FOR RECORDS PERTAINING TO PATIENTS WHO ARE OR HAVE BEEN ENROLLED IN A CHEMICAL DEPENDENCY/SUBSTANCEABUSE PROGRAM, SOME INFORMATION MAY BE OMITTED. This clinical summary was aggregated from multiple sources. Caution should be exercised in using it in the provision of clinical care. This summary normalizes information from multiple sources, and as a consequence, information in this document may materially change the coding, format and clinical context of patient data. In addition, data may be omitted in some cases. CLINICAL DECISIONS SHOULD BE BASED ON THE PRIMARY CLINICAL RECORDS. [employer] provides no warranty or guarantee of the accuracy or completeness of information in this document.
== END | disposition home or self-care (01) ==
PROVIDERS: PCP Internal Medicine; Referring Provider Student in an Organized Health Care Education/Training Program; Visit Provider Student in an Organized Health Care Education/Training Program
DX: I48.92 Unspecified atrial flutter (principal)
CPT/HCPCS: 36415; 85025

== ENCOUNTER → 2025-05-17 | Outpatient (CLI) | payer MEDICARE, OTHER, SELFPAY ==
--- NOTE | 2025-05-17 13:53 | ECHOD_ITS ---
Reason For Study Reason For Study: SOB Procedure This was a 2D Doppler, Color Flow transthoracic echocardiogram. Exam performed in department. Left Ventricle Normal LV size. Mild concentric left ventricular hypertrophy. The left ventricular ejection fraction is 65 %. Stage 2 diastolic dysfunction. No regional wall motion abnormalities noted. Right Ventricle Normal RV size. Normal systolic function. Atria Normal left atrium. Normal right atrium. Mitral Valve There is moderate mitral annular calcification. Mild (1+) eccentric mitral valve insufficiency. Tricuspid Valve Normal tricuspid valve. Mild (1+) tricuspid valve insufficiency. Pulmonary artery systolic pressure is 30 mmHg. Aortic Valve Trisinus/trileaflet aortic valve. Mild focal aortic valve calcification. Mild aortic stenosis. Pulmonic Valve Normal pulmonic valve. Great Vessels Mildly calcified aortic root. The pulmonary artery is normal size. Inferior vena cava collapse with respiration. Pericardium/Pleural No pericardial effusion. MMode/2D Measurements & Calculations LVIDd: 3.8 cm IVSd: 1.2 cm LVOT diam: 2.1 cm LVIDs: 2.0 cm LVPWd: 1.3 cm LVOT area: 3.6 cm2 RVDd: 3.5 cm FS: 48.3 % Ao root diam: 3.4 cm LAV(MOD-bp): 62.3 ml LVAd ap4: 25.7 cm2 LAV(MOD-bp) Indexed: 32.4 ml/m2 LVLd ap4: 7.5 cm LAV(MOD-sp2): 61.8 ml EDV(MOD-sp4): 73.3 ml LAV(MOD-sp4): 50.9 ml EDV(sp4-el): 75.0 ml LVAs ap4: 13.7 cm2 LVLs ap4: 6.2 cm ESV(MOD-sp4): 25.8 ml ESV(sp4-el): 25.8 ml EF(MOD-sp4): 64.8 % EF(sp4-el): 65.6 % LVAd ap2: 21.0 cm2 SV(MOD-sp4): 47.5 ml SV(MOD-sp2): 37.1 ml LVLd ap2: 6.6 cm SI(MOD-sp4): 24.7 ml/m2 SI(MOD-sp2): 19.3 ml/m2 EDV(MOD-sp2): 55.1 ml EDV(sp2-el): 56.8 ml LVAs ap2: 11.5 cm2 LVLs ap2: 6.0 cm ESV(MOD-sp2): 18.0 ml ESV(sp2-el): 18.5 ml EF(MOD-sp2): 67.3 % SV(sp4-el): 49.2 ml LA dimension(2D): 4.1 cm LA A4 area: 16.8 cm2 RA A4 area: 13.2 cm2 TAPSE: 2.0 cm Time Measurements MV dec time: 0.26 sec Doppler Measurements & Calculations MV E max arnold: 112.7 cm/sec Lat Peak E' Arnold: 6.4 cm/sec Med Peak E' Arnold: 5.2 cm/sec MV A max arnold: 96.3 cm/sec E/E' lat: 17.7 E/E' med: 21.6 MV E/A: 1.2 Ao V2 max: 161.6 cm/sec LV V1 max: 119.3 cm/sec MV dec slope: 427.1 cm/sec2 Ao max P.4 mmHg LV V1 max P.7 mmHg Ao V2 mean: 106.5 cm/sec LV V1 mean P.1 mmHg Ao mean P.1 mmHg LV V1 mean: 82.3 cm/sec Ao V2 VTI: 39.2 cm LV V1 VTI: 31.6 cm AV (velocity ratio): 0.81 LISANDRO(I,D): 2.9 cm2 LISANDRO(V,D): 2.6 cm2 SV(LVOT): 112.3 ml PA V2 max: 97.6 cm/sec TR max arnold: 248.9 cm/sec TR max P.0 mmHg ECHO/Echo Complete Interpretation Summary Normal LV size. Mild concentric left ventricular hypertrophy. The left ventricular ejection fraction is 65 %. Stage 2 diastolic dysfunction. Mild focal aortic valve calcification. Mild aortic stenosis. Ordering Physician: Timothy Celis Referring Physician: Pauline Alcaraz M.D. Performed By: Radha Fry RDCS
== END | disposition home or self-care (01) ==
LOC: CVS 13:51
PROVIDERS: PCP Internal Medicine; Referring Provider Student in an Organized Health Care Education/Training Program; Visit Provider Student in an Organized Health Care Education/Training Program
DX: R06.02 Shortness of breath (principal)
CPT/HCPCS: 93306